=== PATIENT | female | born 1950 | race Caucasian/White ===

== ENCOUNTER 2020-02-17 10:53 | Emergency (ER) | payer MEDICARE, OTHER, SELFPAY ==
[2020-02-17 10:55] VITALS: BP 130/70; PULSE 88; RESP 16; TEMP 36.3; O2SAT 99
[2020-02-17 12:24] VITALS: BP 120/73; PULSE 82; O2SAT 98
[2020-02-17] MEDS: TRAMADOL 50 MG TABLET PO (12:25)
--- NOTE | 2020-02-17 15:39 | ED_ITS ---
HPI - Ear Problem <MARTINEZ Grace - Last Filed: 02/17/20 16:52> General Chief complaint: Ear Stated complaint: ear infection rt Time Seen by Provider: 02/17/20 11:01 Source: patient Mode of arrival: Ambulatory Limitations: no limitations History of Present Illness HPI Narrative: This is a 69-year-old female, former smoker, with history of hypertension and hypothyroidism, presents to ED with chief complain of right ear pain for last 2.5 days. Patient denies fever, chills, nausea or vomiting. Denies recent upper respiratory infection symptoms or ear drainage. She states right side hearing has decreased and behind right ear lymph node has been hurting. Patient states she was treated with amoxicillin 3 months ago with ear infection after she was evaluated in [facility]. Patient reports her pain is 5/10 and when offered Tylenol and Motrin for pain management, she says it does nothing for her and states trauma other works well pain in the past. Related Data Previous Rx's Medication Instructions Recorded amoxicillin-pot clavulanate 1 tab PO BID 7 Days #14 tab 02/17/20 [Augmentin] Review of Systems <MARTINEZ Grace - Last Filed: 02/17/20 16:52> Review of Systems Narrative: General: Denies fever, chills, fatigue, malaise, sweats. HEENT: See HPI Respiratory: Denies dyspnea, cough, wheezing, hemoptysis, sputum. Cardiovascular: Denies chest pain, palpitations, orthopnea, edema. Gastrointestinal: Denies nausea, vomiting, abdominal pain, diarrhea, constipation, melena. : Denies dysuria, frequency, incontinence, hematuria, urinary retention. Musculoskeletal: Denies weakness, joint pain or bony pain. Skin: Denies rash, skin lesions, or other. Neurologic: Denies weakness, headache, numbness, change in speech, confusion, seizures, incoordination. Psychiatric: No concerning psychosocial issues. 12-point review of systems is negative except for those stated above. Patient History <MARTINEZ Grace - Last Filed: 02/17/20 16:52> Medical History (Updated 02/17/20 @ 16:42 by MARTINEZ Grace) Hypertension (Acute) Hypothyroidism (Acute) Social History Smoking Status: Former smoker Smoking Status: Former smoker alcohol intake frequency: other Substance Use Type: does not use Exam <MARTINEZ Grace - Last Filed: 02/17/20 16:52> Narrative Exam Narrative: General appearance: well developed, well nourished, appears to be anxious. Head: normocephalic, atraumatic, no scalp lesions, non-tender. ENT: Bilateral auditory canals clear. Right tympanic membrane erythematous and cloudy in appearance with intact TM. Left TM intact with normal markings. Slightly decreased Hearing in right ear and intact in left ear. Nose without bleeding, purulent discharge, septal hematoma or deviation. Turbinate without erythema or swelling. Facial sinuses nontender to palpate. Mucous membrane moist, no mucosal lesion. Throat without erythema, tonsillar hypertrophy or exudate. Uvula in midline, airway patent. Neck/Thyroid: neck supple, full range of motion, no visible masses or meningeal signs. No JVD, non-tender without lymphadenopathy. Skin: no suspicious rashes, lesions over visible areas. Warm and dry and appropriate color for ethnicity. Heart: no clubbing, no cyanosis, no edema. S1 and S2 normal. RRR w/o murmurs, clicks, or bruits. Lungs: Breathing even and unlabored. No stridor. No accessory muscles used. Able to speak in full sentences. Chest: normal shape and expansion. Abdomen: non-obese, non-distended. Neurologic: alert and oriented. Cognitive exam, [employer] and PNS grossly intact on informal exam. Psych: good eye contact, normal affect. Initial Vital Signs Initial Vital Signs: Vital Signs Temperature 97.4 F L 02/17/20 10:55 Pulse Rate 88 02/17/20 10:55 Respiratory Rate 16 02/17/20 10:55 Blood Pressure 130/70 02/17/20 10:55 Pulse Oximetry 99 02/17/20 10:55 <Mustapha Osuna DO - Last Filed: 02/17/20 16:59> Initial Vital Signs Initial Vital Signs: Vital Signs Temperature 97.4 F L 02/17/20 10:55 Pulse Rate 88 02/17/20 10:55 Respiratory Rate 16 02/17/20 10:55 Blood Pressure 130/70 02/17/20 10:55 Pulse Oximetry 99 02/17/20 10:55 Scores <MARTINEZ Grace - Last Filed: 02/17/20 16:52> GCS [place] coma scale eye opening: Spontaneous [place] coma scale verbal response: Orientated [place] coma scale motor response: Obey commands [place] coma scale total score: 15 Course <Arias VázquezMARTINEZ Terrazas - Last Filed: 02/17/20 16:52> Orders Ordered: Discontinued Medications Tramadol HCl (Ultram) 50 mg PO NOW ONE Stop: 02/17/20 11:35 Last Admin: 02/17/20 12:26 Dose: Not Given Documented by: ANA MARIA Tramadol HCl (Ultram) 50 mg PO NOW ONE Stop: 02/17/20 12:06 Last Admin: 02/17/20 12:25 Dose: 50 mg Documented by: ANA MARIA Vital Signs Vital signs: Vital Signs - 8 hr 02/17/20 10:55 02/17/20 12:24 Temperature 97.4 F L Pulse Rate 88 82 Respiratory Rate 16 Blood Pressure 130/70 Blood Pressure [Left Arm] 120/73 Pulse Oximetry 99 98 <Mustapha Osuna DO - Last Filed: 02/17/20 16:59> Orders Ordered: Discontinued Medications Tramadol HCl (Ultram) 50 mg PO NOW ONE Stop: 02/17/20 11:35 Last Admin: 02/17/20 12:26 Dose: Not Given Documented by: ANA MARIA Tramadol HCl (Ultram) 50 mg PO NOW ONE Stop: 02/17/20 12:06 Last Admin: 02/17/20 12:25 Dose: 50 mg Documented by: ANA MARIA Vital Signs Vital signs: Vital Signs - 8 hr 02/17/20 10:55 02/17/20 12:24 Temperature 97.4 F L Pulse Rate 88 82 Respiratory Rate 16 Blood Pressure 130/70 Blood Pressure [Left Arm] 120/73 Pulse Oximetry 99 98 Medical Decision Making <Arias VázquezMARTINEZ Terrazas - Last Filed: 02/17/20 16:52> Differential Diagnosis Differential Diagnosis: Otitis media Medical Records Medical records reviewed: Yes I reviewed the patient's medical records. MDM Narrative Medical decision making narrative: This is 69 year old female who presents to ED with right ear pain. Physical exam is consistent with right otitis media. When patient offered Tylenol and or Motrin for pain, patient declines and requesting other medication since Tylenol Motrin does nothing for pain. Patient suggested tramadol since in the past it works well for pain. Informed patient that she will be treated with Augmentin for otitis media since 3 month ago her otitis media has been treated with amoxicillin. Patient again inquiring about pain management at home. AMELIA report came in and it appears to be patient had visited [facility] 5 times within 12 months. She had also prescribed total 360 tabs of tramadol, 26 tabs of [place] since December 13 through January 22 this year from 3 different prescribers. It appears to be patient receives tramadol 50 mg 180 tabs on a monthly basis from her primary care physician. Patient advised to take [id number] Tylenol and or Motrin as needed for her ear pain and to take tramadol that she has at home if there is severe ear pain. Patient was treated with 1 tab of tramadol while in ED. Return precautions were discussed with patient and advised to follow up with primary care physician for recheck in 2-3 days. Patient verbalized under standing and agreement with treatment plan. Discharge Plan Departure Patient Disposition: Home Clinical Impression: Otitis media Qualifiers: Otitis media type: unspecified Laterality: right Qualified Code(s): H66.91 - O titis media, unspecified, right ear Discharge Date/Time: 02/17/20 12:29 Instructions: DI for Middle Ear Infection-Adult Activity Restrictions/Additional Instructions: You have been diagnosed with [right middle ear infection]. What to do: *Take your medications as directed. Please take antibiotic medication twice a day for next 7 days. This medication has been transmitted to [facility] in [place]. You can take [id number] Tylenol and or Motrin as needed for discomfort. For severe pain usually take tramadol that you have been prescribed by her primary care physician. *Follow up with your primary care provider in 2-3 days, call for an appointment. Let them know you were seen in the ED and that we asked you to be seen in follow up. *Return to ED if you have any new, worsening, or concerning symptoms, such as [chest pain, breathing difficulty, unable to tolerate fluids, high fever, increasing pain, increasing difficulty hearing or any acute concerns]. Prescriptions: New amoxicillin-pot clavulanate [Augmentin] 875-125 mg tablet 1 tab PO BID 7 Days Qty: 14 RF: 0 Referrals: Isaak Vasquez DO [Primary Care Provider] - <Mustapha Osuna DO - Last Filed: 02/17/20 16:59> Cosign ED Attending Cosignature Attestation: Dr Osuna Co-Sign Statement: I was available for consultation during this patient's emergency department visit. This chart is signed by myself for administrative purposes only. I did not have direct contact with this patient during this visit. They were seen independently by the APC.
== END 2020-02-17 12:29 | disposition home or self-care (01) ==
PROVIDERS: Emergency Provider Nurse Practitioner Family; PCP Family Medicine
DX: H66.91 Otitis media, unspecified, right ear (principal)
CPT/HCPCS: 99283

== ENCOUNTER 2020-02-19 18:54 | Emergency (ER) | payer MEDICARE, OTHER, SELFPAY ==
[2020-02-19 19:00] VITALS: BP 148/110; PULSE 104; TEMP 37.1; O2SAT 98; BMI 27.2
--- NOTE | 2020-02-19 19:14 | ED_ITS ---
HPI - Ear Problem <MARTINEZ Purvis - Last Filed: 02/19/20 19:38> General Chief complaint: Ear Stated complaint: infection in right ear Time Seen by Provider: 02/19/20 18:58 Source: patient Mode of arrival: Ambulatory Limitations: no limitations History of Present Illness HPI Narrative: 69yo female, former smoker, history of hypertension, on chronic tramadol therapy, presents to the ED for continued right-sided ear pain for the past 4 day. Patient states she was seen on 02/17/2020 here in the emergency department diagnosed with otitis media, she was given Augmentin. She states she is continuing to take the Augmentin despite the fact that it gives her diarrhea. However, patient reports continued pain. Patient denies any other symptoms such as headache, vision changes, neck pain, chest pain, nausea, vomiting, diarrhea, or any other concerns. Does report a small bruise to PINNA from bumping her head on the overhead cabinet in the bathroom. Related Data Previous Rx's Medication Instructions Recorded amoxicillin-pot clavulanate 1 tab PO BID 7 Days #14 tab 02/17/20 [Augmentin] prednisone 40 mg PO DAILY 4 Days #8 tab 02/19/20 Allergies Allergy/AdvReac Type Severity Reaction Status Date / Time No Known Drug Allergies Allergy Verified 02/19/20 19:03 Review of Systems <MARTINEZ Purvis - Last Filed: 02/19/20 19:38> Review of Systems Narrative: REVIEW OF SYSTEMS: GENERAL: Denies fever or chills. HENT: Reports right ear pain, see HPI. No headaches. EYES: No vision changes. CARDIOVASCULAR: No chest pain. RESPIRATORY: No shortness of breath or cough. GASTROINTESTINAL: No nausea, vomiting, or constipation. Reports diarrhea from previous antibiotics, see HPI. MUSCULOSKELETAL: No pain, weakness, or deformities. INTEGUMENTARY: No rash, lesions, or pruritus. Patient History <MARTINEZ Purvis - Last Filed: 02/19/20 19:38> Medical History Hypertension (Acute) Hypothyroidism (Acute) Social History Smoking Status: Former smoker Smoking Status: Former smoker alcohol intake frequency: other Substance Use Type: does not use Exam <MARTINEZ Purvis - Last Filed: 02/19/20 19:38> Initial Vital Signs Initial Vital Signs: Vital Signs Temperature 98.7 F 02/19/20 19:00 Pulse Rate 104 H 02/19/20 19:00 Blood Pressure 148/110 H 02/19/20 19:00 Pulse Oximetry 98 02/19/20 19:00 PHYSICAL EXAMINATION: GENERAL: Well groomed, alert, and cooperative. Appears to be in pain. Answers questions promptly and appropriately. Vital signs noted. HENT: Normocephalic, atraumatic. Right TM intact with effusion, mainly clear fluid with a small amount of resolving purulent streaks. No significant erythema or bulge. Slight ecchymosis noted to superior pinna, no significant swelling, no cauliflower ear. Left TM intact without erythema, fluid, or bulge. No pain with mastoid palpation. Oropharynx without erythema. No rhinorrhea EYES: PERRLA, conjunctiva pink, sclera white, no periorbital swelling. CHEST: Normal to inspection and without deformities. RESPIRATORY: Normal respiratory rate, trachea midline, airway patent. No stridor, nasal flaring or accessory muscle use. . MUSCULOSKELETAL: Normal gait and coordination. Equal tone and mass bilaterally. EXTREMITIES: CMS intact. Moves all extremities. SKIN: Warm, dry, soft, appropriate color for ethnicity. No lesions, rashes, or wounds. NEURO: Alert and Oriented X 3. Good coordination. No ataxia, or sensory deficits, or cognitive issues. PSYCH: Patient has an anxious affect. <Cindi Dawson MD - Last Filed: 02/19/20 21:47> Initial Vital Signs Initial Vital Signs: Vital Signs Temperature 98.7 F 02/19/20 19:00 Pulse Rate 104 H 02/19/20 19:00 Blood Pressure 148/110 H 02/19/20 19:00 Pulse Oximetry 98 02/19/20 19:00 Course <MARTINEZ Purvis - Last Filed: 02/19/20 19:38> Course Course Narrative: Patient given Toradol in the emergency department to help with pain. I discussed with patient enter nasal versus oral steroids to help with pain of otitis effusion. Due to patient's pain, elected to have oral steroids at this time. Patient denies any diabetes. Reported she tolerated oral steroids well in the past. Orders Ordered: Discontinued Medications Ketorolac Tromethamine (Toradol) 30 mg IM NOW ONE Stop: 02/19/20 19:11 Last Admin: 02/19/20 19:22 Dose: 30 mg Documented by: ANA MARIA Prednisone (Deltasone) 40 mg PO NOW ONE Stop: 02/19/20 19:11 Last Admin: 02/19/20 19:22 Dose: 40 mg Documented by: ANA MARIA Vital Signs Vital signs: Vital Signs - 8 hr 02/19/20 19:00 02/19/20 19:25 Temperature 98.7 F Pulse Rate 104 H 100 H Blood Pressure 148/110 H Pulse Oximetry 98 <Cindi Dawson MD - Last Filed: 02/19/20 21:47> Orders Ordered: Discontinued Medications Ketorolac Tromethamine (Toradol) 30 mg IM NOW ONE Stop: 02/19/20 19:11 Last Admin: 02/19/20 19:22 Dose: 30 mg Documented by: ANA MARIA Prednisone (Deltasone) 40 mg PO NOW ONE Stop: 02/19/20 19:11 Last Admin: 02/19/20 19:22 Dose: 40 mg Documented by: ANA MARIA Vital Signs Vital signs: Vital Signs - 8 hr 02/19/20 19:00 02/19/20 19:25 Temperature 98.7 F Pulse Rate 104 H 100 H Blood Pressure 148/110 H Pulse Oximetry 98 Medical Decision Making <MARTINEZ Purvis - Last Filed: 02/19/20 19:38> Medical Records Medical records reviewed: Yes I reviewed the patient's medical records. Lab Data Lab results reviewed: Yes I reviewed the patient's lab results. MDM Narrative Medical decision making narrative: 69-year-old female presenting to the emergency department for continued right ear pain after a diagnosis of otitis media 2 days ago. Patient continues to take Augmentin. I suspect patient's pain is most likely caused by remaining otitis effusion due to examination, previous otitis media, and short duration since onset of symptoms. Patient was given oral steroid after discussion. Follow-up was encouraged due to the potential for chronic otitis effusions. There was a small amount of ecchymosis noted to patient's pinna from bumping her head on a cabinet. No concern for significant swelling or cauliflower here due to examination. Previous note on 02/17/2020 mentions patient has been prescribed a total of 360 tabs of tramadol, 26 tabs of [place], from December 13 through January 22 from multiple providers. Patient also has a AMELIA report with multiple ED encounters. No narcotics were given at this visit. Patient was initially noted to have a slightly elevated pulse, she appeared nervous on examination. This may be due to pain. Less concern for significant infection due to lack of other concerning symptoms such as fever, severe headache, sore throat, are pain on palpation of her mastoid. Additionally, patient reported improved pain with administration of Toradol. Return precautions given for new or worsening symptoms. Follow-up instructions discussed. Patient agreed to plan of care verbalized understanding. Discharge Plan Departure Patient Disposition: Home Clinical Impression: Acute otitis media with effusion Discharge Date/Time: 02/19/20 19:31 Instructions: DI for Otitis Media (Middle Ear Infection)-Child Activity Restrictions/Additional Instructions: Thank you for entrusting me with your care today. As discussed, it appears your ear infection is continuing to heal. The continued pain is due to a clear fluid that often accumulates behind your ear drum causing pressure and pain. I prescribed you a steroid medication to help with this. Please continue to take your antibiotics as directed. Your prescriptions were sent to [facility] in [place]. Follow-up with your primary care provider in 1 week for further evaluation especially if symptoms continue. Return emergency department for any new or worsening symptoms. Prescriptions: New prednisone 20 mg tablet 40 mg PO DAILY 4 Days Qty: 8 RF: 0 No Action amoxicillin-pot clavulanate [Augmentin] 875-125 mg tablet 1 tab PO BID 7 Days Qty: 14 RF: 0 Referrals: Isaak Vasquez DO [Primary Care Provider] - <Cindi Dawson MD - Last Filed: 02/19/20 21:47> [facility]ign [facility]: I was immediately available in the department for consultation throughout this patient's visit. I agree with documentation as above. Cindi Dawson MD
[2020-02-19] MEDS: KETOROLAC 60 MG/2 ML VIAL 30 MG IM (19:22)
[2020-02-19] MEDS: predniSONE 20 MG TABLET 40 MG PO (19:22)
[2020-02-19 19:25] VITALS: PULSE 100
== END 2020-02-19 19:31 | disposition home or self-care (01) ==
PROVIDERS: Emergency Provider Nurse Practitioner; PCP Family Medicine
DX: H65.191 Other acute nonsuppurative otitis media, right ear (principal); I10 Essential (primary) hypertension; E03.9 Hypothyroidism, unspecified; R19.7 Diarrhea, unspecified
CPT/HCPCS: 96372; 99283; J1885

== ENCOUNTER 2020-03-01 09:46 | Emergency (ER) | payer MEDICARE, OTHER, SELFPAY ==
[2020-03-01 09:49] VITALS: BP 125/91; PULSE 82; RESP 12; TEMP 36.7; O2SAT 99
--- NOTE | 2020-03-01 09:54 | PC.NURSE ---
pt has been seen for same problem without relief. Pt scheduled to see ENT in 5 days but the pain is too much at this time
--- NOTE | 2020-03-01 09:56 | ED.EAR ---
HPI - Ear Problem General Chief complaint: Ear Stated complaint: right ear infection Time Seen by Provider: 03/01/20 09:47 Source: patient Mode of arrival: Ambulatory Limitations: no limitations History of Present Illness HPI Narrative: 69-year-old female former smoker with chronic back pain presents for the 3rd time for evaluation of right ear pain in the past few weeks. She has ongoing right ear pain in the absence of any other fever, but does have runny nose, sneezing . She denies any injury or drainage. She denies chest pain or shortness of breath. She denies nausea, vomiting. Initially she was seen and thought to have a bacterial otitis media and was placed on antibiotics but only took a few doses as it caused a significant amount of diarrhea. She returned under similar circumstances with ongoing ear pain and her antibiotic was switched and again it caused her diarrhea at which point she stopped taking it. She returns with ongoing ear pain in the absence of fever or drainage MD Complaint: ear pain Location: right ear Duration: constant Severity: moderate Relieving factors: nothing Exacerbating factors: nothing Discharge from ear: no Treatment prior to arrival: none Related Data Previous Rx's Medication Instructions Recorded amoxicillin-pot clavulanate 1 tab PO BID 7 Days #14 tab 02/17/20 [Augmentin] prednisone 40 mg PO DAILY 4 Days #8 tab 02/19/20 Allergies Allergy/AdvReac Type Severity Reaction Status Date / Time No Known Drug Allergies Allergy Verified 02/19/20 19:03 Review of Systems Constitutional Constitutional: Denies chills, Denies fatigue, Denies fever(s), Denies frequent falls, Denies lethargy and Denies weakness Eyes Eyes: Denies change in vision, Denies eye discharge, Denies irritation and Denies loss of vision ENT Ears, Nose, Mouth, and Throat: Denies change in voice, Denies dizziness, Reports otalgia, Reports nasal congestion, Denies neck pain, Denies sore throat and Denies throat swelling Cardiovascular Cardiovascular: Denies chest pain, Denies irregular heart rhythm, Denies lightheadedness, Denies palpitations, Denies dyspnea, Denies dyspnea on exertion and Denies orthopnea Respiratory Respiratory: Denies cough, Denies dyspnea, Denies dyspnea on exertion and Denies wheezing Gastrointestinal Gastrointestinal: Denies abdominal pain, Denies change in bowel habits, Denies diarrhea, Denies nausea and Denies vomiting Genitourinary Genitourinary: Denies hematuria, Denies flank pain, Denies urinary incontinence and Denies urinary urgency Musculoskeletal Musculoskeletal: Denies back pain, Denies muscle weakness, Denies neck pain, Denies numbness and Denies tingling Integumentary/Breasts Skin/Breast: Denies pruritus, Denies erythema, Denies rash and Denies wounds Neurologic Neurologic: Denies behavioral changes, Denies confusion, Denies dizziness, Denies frequent falls, Denies loss of vision, Denies numbness, Denies tingling and Denies weakness Psychiatric Psychiatric: Denies anxiety, Denies behavioral changes, Denies confusion, Denies depression, Denies homicidal ideation and Denies suicidal ideation Endocrine Endocrine: Denies fatigue, Denies flushing and Denies palpitations Hematologic/Lymphatic Hematologic/Lymphatic: Denies easy bruising Allergic/Immunologic Allergic/Immunologic: Denies urticaria, Denies throat swelling and Denies wheezing Patient History Medical History Hypertension (Acute) Hypothyroidism (Acute) Social History Smoking Status: Former smoker Smoking Status: Former smoker alcohol intake frequency: other Substance Use Type: does not use Exam Narrative Exam Narrative: GEN: AOx3 and in mild distress EYES: Pupils are equal, round, and reactive to light and accommodation. Extraoccular muscles are intact bilaterally. There is no subconjunctival hemorrhage or exudate. ENT: Right TM clear, no bulging, minimal clear effusion. EAC clear and without swelling or drainage. No pain to palpation of mastoid. No intraoral abnormality CHEST: Lungs are clear to auscultation bilaterally and free of wheezes, rales, or rhonchi. Heart rate is regular rhythm, there are no murmurs, clicks, rubs, or gallops. There is no chest wall tenderness. ABD: Abdomen is soft and nontender. There is no guarding or rebound. Bowel sounds are normal in all 4 quadrants. There is no mass or organomegaly. EXT: Full painless ROM of all extremities with no loss of sensation or strength. SKIN: Warm, pink, and dry. No erythema or rash Initial Vital Signs Initial Vital Signs: Vital Signs Temperature 98.1 F 03/01/20 09:49 Pulse Rate 82 03/01/20 09:49 Respiratory Rate 12 03/01/20 09:49 Blood Pressure 125/91 H 03/01/20 09:49 Pulse Oximetry 99 03/01/20 09:49 Course Vital Signs Vital signs: Vital Signs - 8 hr 03/01/20 09:49 Temperature 98.1 F Pulse Rate 82 Respiratory Rate 12 Blood Pressure 125/91 H Pulse Oximetry 99 Medical Decision Making MDM Narrative Medical decision making narrative: Though patient has had multiple visits with antibiotics to treat otitis media there is no current indication that antibiotics are needed. She does have some small amount of clear effusion in her right TM, and clear post nasal drip. Return precautions given, questions answered to apparent satisfaction Discharge Plan Departure Patient Disposition: Home Clinical Impression: Otitis media Qualifiers: Otitis media type: serous Chronicity: acute Laterality: right Recurrence: recurrent Qualified Code(s): H65.04 - Acute serous otitis media, recurrent, right ear Discharge Date/Time: 03/01/20 10:37 Instructions: DI for Ear Pain-Adult Activity Restrictions/Additional Instructions: *You have been diagnosed with [right otitis media with effusion, no indication for antibiotics] *What to do: *Take medications as directed: I strongly recommend [id number]-[id number] antihistamines such as Zyrtec, Agustina or Claritin along with decongestants such as Sudafed or phenylephrine. Additionally, as prior doctors have suggested intranasal steroid such as Flonase are likely to help as well *Follow up with your primary care provider in 2-3 days, call for an appointment. Let them know you were seen in the Emergency Department and that we ask that you be seen in follow up *Return to ER if you should have any new, worsening or concerning symptoms Prescriptions: No Action amoxicillin-pot clavulanate [Augmentin] 875-125 mg tablet 1 tab PO BID 7 Days Qty: 14 RF: 0 prednisone 20 mg tablet 40 mg PO DAILY 4 Days Qty: 8 RF: 0 Referrals: Ricci Dc MD [Physician] - Isaak Vasquez DO [Primary Care Provider] -
== END 2020-03-01 10:37 | disposition home or self-care (01) ==
PROVIDERS: Emergency Provider Emergency Medicine; PCP Family Medicine
DX: H65.04 Acute serous otitis media, recurrent, right ear (principal)
CPT/HCPCS: 99281

== ENCOUNTER 2020-05-24 10:17 | Emergency (ER) | payer MEDICARE, OTHER, SELFPAY ==
[2020-05-24 10:29] VITALS: BP 134/86; PULSE 87; RESP 16; O2SAT 98; BMI 27.3
[2020-05-24 11:30] VITALS: BP 192/97; PULSE 77; RESP 17; O2SAT 100
[2020-05-24] MEDS: SODIUM CHLORIDE 0.9% 500 ML 1000 ML IV (12:09)
[2020-05-24] MEDS: KETOROLAC 60 MG/2 ML VIAL 15 MG IV (12:09)
[2020-05-24] MEDS: diphenhydrAMINE 50 MG/ML VIAL 25 MG IV (12:09)
[2020-05-24] MEDS: METOCLOPRAMIDE 10 MG/2 ML INJ IV (12:11)
--- NOTE | 2020-05-24 12:15 | ED_ITS ---
HPI - Headache <Arias Medina [facility] - Last Filed: 05/24/20 19:09> General Chief Complaint: Headache Stated Complaint: Migraine Pain Time Seen by Provider: 05/24/20 11:03 Source: patient Mode of arrival: Ambulatory Limitations: no limitations History of Present Illness HPI Narrative: This is a 69-year-old female, former smoker, who has history of migraine headache and hypertension presents to ED with chief complain of headache for last 4-5 days. Patient reports the pain feels just as her usual migraine headache. Location of headache is frontal head from right to left side. Patient reports photo sensitivity and nausea without vomiting. Patient reports she has little blurred vision in right-sided which is normal with her migraine headache. Denies speech difficulty, swallowing difficulty, facial droops or extremity weakness. She denies fever, chills, unusual rashes, or nuchal rigidity. Patient was seen by her primary care physician yesterday Dr. Becerra and received Toradol injection without improvement. Patient denies your recent URI symptoms. Reports taking Tylenol at 7:30 a.m. this morning without improvement. [facility] ED visit reports indicates she had received 15 tabs of [place] on 03/24/20 and tramadol 50 mg #150 tabs on 03/05/[address] Becerra and patient states she is not currently taking any of these medications. Related Data Home Medications Medication Instructions Recorded Confirmed chlorthalidone 25 mg PO DAILY 05/24/20 05/24/20 levothyroxine [Synthroid] 100 mcg PO DAILY 05/24/20 05/24/20 Allergies Allergy/AdvReac Type Severity Reaction Status Date / Time No Known Drug Allergies Allergy Verified 05/24/20 10:33 Review of Systems <Arias Medina [facility] - Last Filed: 05/24/20 19:09> Review of Systems Narrative: General: Denies fever, chills, fatigue, malaise, sweats. HEENT: Denies sinus pain, ear pain, sore throat, difficulty swallowing, dizziness. Respiratory: Denies dyspnea, cough, wheezing, hemoptysis, sputum. Cardiovascular: Denies chest pain, palpitations, orthopnea, edema. Gastrointestinal: See HPI : Denies dysuria, frequency, incontinence, hematuria, urinary retention. Musculoskeletal: Denies weakness, joint pain or bony pain. Skin: Denies rash, skin lesions, or other. Neurologic: Denies weakness, (+) headache, numbness, change in speech, confusion, seizures, incoordination. Psychiatric: No concerning psychosocial issues. 12-point review of systems is negative except for those stated above. Patient History <MARTINEZ Grace - Last Filed: 05/24/20 19:09> Medical History Breast cancer (Acute) Hypertension (Acute) Hypothyroidism (Acute) Migraine headache (Acute) Surgical History Hx of cholecystectomy (Acute) Social History Smoking Status: Former smoker Smoking Status: Former smoker alcohol intake frequency: a few times a week Alcohol type: wine Substance Use Type: does not use Exam <MARTINEZ Grace - Last Filed: 05/24/20 19:09> Narrative Exam Narrative: GEN: Alert, oriented x 3, well appearing and nourished, and in no acute distress. Head: Normal cephalic, atraumatic. No scalp or temporal tenderness, palpable mass or rash. EYES: Pupils are equal, round, and reactive to light and accommodation. Extraocular muscles are intact bilaterally. There is no subconjunctival hemorrhage, exudate and sclera non-icteric. ENT: Bilateral auditory canals and tympanic membranes clear. Hearing grossly intact. Nose without bleeding, purulent discharge, septal hematoma or deviation. Turbinate without erythema or swelling. Facial sinuses nontender to palpate. Mucous membrane moist, no mucosal lesion. Throat without erythema, tonsillar hypertrophy or exudate. Uvula in midline, airway patent. Neck: Trachea in midline. No JVD, non-tender without lymphadenopathy. No masses or thyroid megaly. Supple, non-tender and no meningeal signs. CARDIAC: Normal regular rate and rhythm without murmurs, gallops, or rubs. No chest wall tenderness. No peripheral edema, cyanosis or pallor. Capillary refill is less than 2 seconds. No carotid bruits. RESPIRATORY: Lungs are cleat to auscultate bilaterally. No cough, wheezes, rales, or rhonchi. No stridor, respiratory distress, increase work of breathing, or accessary muscle used. ABD: Abdomen soft, non tenderness to palpate. No guarding or rebound tenderness to palpate. Bowel sounds are normal in all 4 quadrants. There is no palpable masses or organomegaly. EXT: Full painless ROM of all extremities with no loss of sensation, strength, effusion or edema. SKIN: Warm, dry, normal color for patient. No erythema, lesions or rash. BACK: Nontender without deformity or crepitance. No flank tenderness. NEUROLOGICAL: Alert and oriented to place, time and person. No facial droops, dysphasia. CN II-XII intact. Strength and sensation symmetric and intact throughout. Cerebellar testing normal. PSYCHIATRIC: Good judgement and reason, without hallucinations, abnormal affect or abnormal behaviors during the examination. Patient is not suicidal. Initial Vital Signs Initial Vital Signs: Vital Signs Pulse Rate 87 05/24/20 10:29 Respiratory Rate 16 05/24/20 10:29 Blood Pressure 134/86 05/24/20 10:29 Pulse Oximetry 98 05/24/20 10:29 <Sandra Perales DO - Last Filed: 05/25/20 07:00> Initial Vital Signs Initial Vital Signs: Vital Signs Pulse Rate 87 05/24/20 10:29 Respiratory Rate 16 05/24/20 10:29 Blood Pressure 134/86 05/24/20 10:29 Pulse Oximetry 98 05/24/20 10:29 Scores <MARTINEZ Grace - Last Filed: 05/24/20 19:09> GCS [place] coma scale eye opening: Spontaneous [place] coma scale verbal response: Orientated [place] coma scale motor response: Obey commands [place] coma scale total score: 15 NIH Stroke Scale Level of Conciousness: Alert, keenly responsive Ask month/age: Answers both questions correctly. Open/close eyes, close hand: Performs both tasks correctly Best gaze horizontal: Normal Visual whitaker: No visual loss Facial palsy: Normal symetrical movement Left arm drift: No drift for full 10 sec Right arm drift: No drift for full 10 sec Left leg drift: No drift for full 10 sec Right leg drift: No drift for full 10 sec Limb ataxia: Absent Sensory on face/arms/legs: Normal, no sensory loss Best language: No aphasia, normal Dysarthria: Normal Extinction or inattention: No abnormality Total NIH Stroke scale score: 0 Course <MARTINEZ Grace - Last Filed: 05/24/20 19:09> Orders Ordered: Discontinued Medications Diphenhydramine HCl (Benadryl) 25 mg IV NOW ONE Stop: 05/24/20 11:21 Last Admin: 05/24/20 12:09 Dose: 25 mg Documented by: LINDA Sodium Chloride (Normal Saline 0.9%) 500 mls @ 1,000 mls/hr IV BOLUS ONE Stop: 05/24/20 11:49 Last Infusion: 05/24/20 13:44 Dose: 0 mls/hr Documented by: Admin: 05/24/20 12:09 Dose: 1,000 mls/hr Documented by: LINDA Ketorolac Tromethamine (Toradol) 15 mg IV NOW ONE Stop: 05/24/20 11:21 Last Admin: 05/24/20 12:09 Dose: 15 mg Documented by: LINDA Metoclopramide HCl (Reglan) 10 mg IV NOW ONE Stop: 05/24/20 11:21 Last Admin: 05/24/20 12:11 Dose: 10 mg Documented by: LINDA Vital Signs Vital signs: Vital Signs - 8 hr 05/24/20 11:30 05/24/20 12:30 05/24/20 13:23 Pulse Rate 77 74 85 Respiratory Rate 17 16 16 Blood Pressure 192/97 H 171/75 H 135/67 Pulse Oximetry 100 100 99 <Sandra Perales DO - Last Filed: 05/25/20 07:00> Orders Ordered: Discontinued Medications Diphenhydramine HCl (Benadryl) 25 mg IV NOW ONE Stop: 05/24/20 11:21 Last Admin: 05/24/20 12:09 Dose: 25 mg Documented by: LINDA Sodium Chloride (Normal Saline 0.9%) 500 mls @ 1,000 mls/hr IV BOLUS ONE Stop: 05/24/20 11:49 Last Infusion: 05/24/20 13:44 Dose: 0 mls/hr Documented by: Admin: 05/24/20 12:09 Dose: 1,000 mls/hr Documented by: LINDA Ketorolac Tromethamine (Toradol) 15 mg IV NOW ONE Stop: 05/24/20 11:21 Last Admin: 05/24/20 12:09 Dose: 15 mg Documented by: LINDA Metoclopramide HCl (Reglan) 10 mg IV NOW ONE Stop: 05/24/20 11:21 Last Admin: 05/24/20 12:11 Dose: 10 mg Documented by: LINDA Vital Signs Vital signs: Vital Signs - 8 hr 05/24/20 11:30 05/24/20 12:30 05/24/20 13:23 Pulse Rate 77 74 85 Respiratory Rate 17 16 16 Blood Pressure 192/97 H 171/75 H 135/67 Pulse Oximetry 100 100 99 MDM - Headache <MARTINEZ Grace - Last Filed: 05/24/20 19:09> Differential Diagnosis Differential diagnosis: Likely migraine, headache and meningitis Medical Records Attestation: I reviewed the patient's medical records. Lab Data Attestation: I reviewed the patient's lab results. Result diagrams: 05/24/20 11:53 05/24/20 11:53 Labs: Lab Results 05/24/20 05/24/20 Range/Units 11:53 11:53 WBC 9.8 (4.5-11.0) X10^3/uL RBC 5.13 (4.0-5.2) X10^6/uL Hgb 15.3 (12.0-16.0) g/dL Hct 45.3 (36-46) % MCV 88.3 (80-100) fL MCH 29.8 (26-34) PG MCHC 33.8 (30-36) % RDW 15.4 H (11.6-14.8) % Plt Count 312 (150-400) X10^3/uL Neut % (Auto) 61.4 (50-75) % Lymph % (Auto) 28.4 (25-40) % [place] % (Auto) 8.2 (3-14) % Eos % (Auto) 0.9 L (2-4) % Baso % (Auto) 1.1 (0-2) % Neut # (Auto) 6000 (9691-3191) /uL Lymph # (Auto) 2800 (5301-7306) /uL [place] # (Auto) 800 (0-900) /uL Eos # (Auto) 100 (0-450) /uL Baso # (Auto) 100 (0-100) /uL Sodium 133 L (137-145) mmol/L Potassium 3.5 (3.4-5.1) mmol/L Chloride 94 L (98-107) mmol/L Carbon Dioxide 28 (22-32) mmol/L BUN 20 H (7-17) mg/dL Creatinine 1.41 H (0.52-1.04) mg/dL Estimated GFR 36.8 L (>60) mL/min BUN/Creatinine Ratio 14.2 (6-22) Glucose 105 (80-110) mg/dL Calcium 9.4 (8.4-10.2) mg/dL MDM Narrative Medical decision making narrative: This is a 69-year-old female who has history of the typical migraine headache presents to ED with ongoing headache for last 4-5 days with nausea and photosensitivity. No focal neurological deficit and normal exam. NIHS stroke scale is 0. Head CT was deferred since patient describes as her typical migraine headache and no neurological deficit. No leukocytosis. Slightly decrease in sodium and chloride of 133 and 94. Ap pears to be patient is moderately dehydrated with the result of elevated BUN, creatinine, estimated GFR today. Patient denies having history of decreased renal function test in the past. Initially patient declined Toradol medication since it's not helping and suggested her pain will probably improve receiving IV route which she agreed to. Patient was hydrated with normal saline 500 mL and medicated with IV Benadryl, Reglan, and Toradol which improved patient's headache to 2/10. Patient advised to follow-up with primary care physician for headache and decreased renal function and return precautions were discussed with patient. Patient verbalized understanding in agreement with treatment plan. Advised to to take [id number] Tylenol and or Motrin as needed for discomfort. <Sandra Perales, DO - Last Filed: 05/25/20 07:00> Lab Data Labs: Lab Results 05/24/20 05/24/20 Range/Units 11:53 11:53 WBC 9.8 (4.5-11.0) X10^3/uL RBC 5.13 (4.0-5.2) X10^6/uL Hgb 15.3 (12.0-16.0) g/dL Hct 45.3 (36-46) % MCV 88.3 (80-100) fL MCH 29.8 (26-34) PG MCHC 33.8 (30-36) % RDW 15.4 H (11.6-14.8) % Plt Count 312 (150-400) X10^3/uL Neut % (Auto) 61.4 (50-75) % Lymph % (Auto) 28.4 (25-40) % [place] % (Auto) 8.2 (3-14) % Eos % (Auto) 0.9 L (2-4) % Baso % (Auto) 1.1 (0-2) % Neut # (Auto) 6000 (7850-6566) /uL Lymph # (Auto) 2800 (4334-1907) /uL [place] # (Auto) 800 (0-900) /uL Eos # (Auto) 100 (0-450) /uL Baso # (Auto) 100 (0-100) /uL Sodium 133 L (137-145) mmol/L Potassium 3.5 (3.4-5.1) mmol/L Chloride 94 L (98-107) mmol/L Carbon Dioxide 28 (22-32) mmol/L BUN 20 H (7-17) mg/dL Creatinine 1.41 H (0.52-1.04) mg/dL Estimated GFR 36.8 L (>60) mL/min BUN/Creatinine Ratio 14.2 (6-22) Glucose 105 (80-110) mg/dL Calcium 9.4 (8.4-10.2) mg/dL Discharge Plan Departure Patient Disposition: Home Clinical Impression: Decreased renal function Migraine Qualifiers: Migraine type: unspecified Status migrainosus presence: without status migrainosus Intractability: not intractable Qualified Code(s): G43.909 - Migraine, unspecified, not intractable, without status migrainosus Discharge Date/Time: 05/24/20 13:47 Instructions: DI for Migraine, DI for Dehydration -- Adult Activity Restrictions/Additional Instructions: You have been diagnosed with [migraine headache and decreased renal function likely from dehydration. No previous renal function test available today. Cr 1.41 and eGFR 36.8 and BUN of 20. ]. What to do: *Take your medications as directed. You were treated with IV fluid, IV toradol, reglan and benadryl which improved headache. You can continue with [id number] Tylenol and or Motrin as needed for discomfort. *Follow up with your primary care provider in 2-3 days, call for an appointment. Let them know you were seen in the ED and that we asked you to be seen in follow up. Please follow-up with renal function test. *Return to ED if you have any new, worsening, or concerning symptoms, such as [worsening pain, fever, unusual rash, stroke-like symptoms, chest pain, breathing difficulty, or any acute concerns]. Prescriptions: No Action levothyroxine [Synthroid] 100 mcg tablet 100 mcg PO DAILY RF: 0 chlorthalidone 25 mg tablet 25 mg PO DAILY RF: 0 Referrals: Isaak Vasquez DO [Primary Care Provider] - <Sandra Perales DO - Last Filed: 05/25/20 07:00> Cosign ED Attending Arlene Attestation: I was immediately available in the department for consultation. Documentation has been reviewed. I agree with assessment and plan.
[2020-05-24 12:19] LABS: Add Manual Diff / Slide Review NO; Basophils Absolute Auto 100 /uL (0-100); Basophils Percent Auto 1.1 % (0-2); Eosinophils Absolute Auto 100 /uL (0-450); Eosinophils Percent Auto 0.9 % (2-4); Hematocrit 45.3 % (36-46); Hemoglobin 15.3 g/dL (12.0-16.0); Lymphocytes Absolute Auto 2800 /uL (1100-4500); Lymphocytes Percent Auto 28.4 % (25-40); Mean Corpuscular HGB Conc 33.8 % (30-36); Mean Corpuscular Hemoglobin 29.8 PG (26-34); Mean Corpuscular Volume 88.3 fL (80-100); Monocytes Absolute Auto 800 /uL (0-900); Monocytes Percent Auto 8.2 % (3-14); Neutrophils Absolute Auto 6000 /uL (1500-7000); Neutrophils Percent Auto 61.4 % (50-75); Platelet Count 312 X10^3/uL (150-400); Red Blood Cell Count 5.13 X10^6/uL (4.0-5.2); Red Cell Distribution Width 15.4 % (11.6-14.8); White Blood Cell Count 9.8 X10^3/uL (4.5-11.0)
[2020-05-24 12:24] LABS: BUN Creatinine Ratio 14.2 (6-22); Blood Urea Nitrogen 20 mg/dL (7-17); Calcium 9.4 mg/dL (8.4-10.2); Carbon Dioxide 28 mmol/L (22-32); Chloride 94 mmol/L (98-107); Estimated Glomerular Filt Rate 36.8 mL/min (>60); Glucose 105 mg/dL (80-110); HEMOLYSIS 34 (0-50); Potassium 3.5 mmol/L (3.4-5.1); Sodium 133 mmol/L (137-145)
[2020-05-24 12:30] VITALS: BP 171/75; PULSE 74; RESP 16; O2SAT 100
[2020-05-24 13:23] VITALS: BP 135/67; PULSE 85; RESP 16; O2SAT 99
== END 2020-05-24 13:47 | disposition home or self-care (01) ==
PROVIDERS: Emergency Provider Nurse Practitioner Family; PCP Family Medicine
DX: G43.909 Migraine, unspecified, not intractable, without status migrainosus (principal); N28.9 Disorder of kidney and ureter, unspecified; I10 Essential (primary) hypertension; R79.89 Other specified abnormal findings of blood chemistry
CPT/HCPCS: 36415; 80048; 85025; 96361; 96374; 96375; 99284; J1200; J1885; J2765

== ENCOUNTER 2020-07-25 14:39 | Emergency (ER) | payer MEDICARE, OTHER, SELFPAY ==
[2020-07-25 14:53] VITALS: BP 159/100; PULSE 85; RESP 18; TEMP 36.3; O2SAT 98; BMI 29.0
--- NOTE | 2020-07-25 16:17 | ED.BACK ---
HPI - Back Pain/Injury General Chief Complaint: Back Pain/Injury Stated Complaint: pain right side upper back Time Seen by Provider: 07/25/20 16:15 Source: patient Limitations: no limitations History of Present Illness HPI Narrative: Patient is a 69-year-old female who presents with all right back and scapular pain ongoing for last 3-4 days. She actually admits that she fell about a week ago. Pain is getting worse it hurts to move her arm breathe or move. It is pinpoint reproducible. She denies any chest pain. She has a known history of atrial flutter. Patient remembers that actually she has been painting for about 10 days she is right-hand dominant. She fell while painting. And when her shoulder started hurting Complaint: back pain Onset (ago): day(s) (4) Duration: constant Location: thoracic spine Related Data Home Medications Medication Instructions Recorded Confirmed chlorthalidone 25 mg PO DAILY 05/24/20 05/24/20 levothyroxine [Synthroid] 100 mcg PO DAILY 05/24/20 05/24/20 Previous Rx's Medication Instructions Recorded cyclobenzaprine 5 mg PO TID PRN #10 tab 07/25/20 Allergies Allergy/AdvReac Type Severity Reaction Status Date / Time No Known Drug Allergies Allergy Verified 07/25/20 14:57 Review of Systems Review of Systems Narrative: GENERAL: Denies chills,fever HEENT: Denies throat pain RESPIRATORY: Denies dyspnea, cough, wheezing CARDIOVASCULAR: Denies chest pain, palpitations GASTROINTESTINAL: Denies nausea, vomiting MUSCULOSKELETAL: See HPI SKIN: No rash, no laceration, no pruritus NEUROLOGIC: Denies weakness, dizziness, headache, numbness 8 point review of systems is negative except for those stated above and HPI Patient History Medical History Breast cancer (Acute) Hypertension (Acute) Hypothyroidism (Acute) Migraine headache (Acute) Surgical History Hx of cholecystectomy (Acute) Social History Smoking Status: Former smoker Smoking Status: Former smoker alcohol intake frequency: a few times a week Alcohol type: wine Substance Use Type: does not use Exam Initial Vital Signs Initial Vital Signs: Vital Signs Temperature 97.3 F L 07/25/20 14:53 Pulse Rate 85 07/25/20 14:53 Respiratory Rate 18 07/25/20 14:53 Blood Pressure 159/100 H 07/25/20 14:53 Pulse Oximetry 98 07/25/20 14:53 GENERAL: Well-appearing, well-nourished and in no acute distress. HEENT: Head atraumatic,EOMI, pupils reactive, face symmetric, moist mucous membranes CARDIOVASCULAR: Regular rate and rhythm without murmurs, rubs or gallops. RESPIRATORY: Breath sounds equal bilaterally, no wheezes rales or rhonchi. BACK: No midline tenderness she does have pain paraspinal area thoracic T thought I have reproducible. ABDOMEN: Soft, nontender. Normoactive bowel sounds all 4 quadrants. No guarding or rebound. EXTREMITIES: Normal range of motion, no clubbing or edema. Neurovascularly intact NEUROLOGICAL: Alert and oriented x4. SKIN: Warm, dry, no laceration, no petechiae, no rashes or lesions. Course Orders Ordered: ED Orders 07/25/20 15:00 EKG-12 Lead Stat 07/25/20 16:36 XR chest 2V Stat Discontinued Medications Cyclobenzaprine HCl (Flexeril) 5 mg PO NOW ONE Stop: 07/25/20 16:24 Last Admin: 07/25/20 16:31 Dose: 5 mg Documented by: LAQUITA Ketorolac Tromethamine (Toradol) 30 mg IM NOW ONE Stop: 07/25/20 16:24 Last Admin: 07/25/20 16:31 Dose: 30 mg Documented by: LAQUITA Vital Signs Vital signs: Vital Signs - 8 hr 07/25/20 14:53 Temperature 97.3 F L Pulse Rate 85 Respiratory Rate 18 Blood Pressure 159/100 H Pulse Oximetry 98 MDM - Back Pain/Injury Imaging Data Chest x-ray: Radiologist's Impression: PROCEDURE: XR CHEST 2V INDICATIONS: right thoracic pain after fall 1 week ago TECHNIQUE: 2 views of the chest were acquired. COMPARISON: None. FINDINGS: Surgical changes and devices: Cholecystectomy clips are seen. Lungs and pleura: Lungs are clear. No pleural effusions or pneumothorax. Mediastinum: The cardiac contours are within normal limits. The aorta demonstrates calcification and tortuosity. Bones and chest wall: In this patient with this given history, scrutiny is given to rib fractures and thoracic spine fractures. To the limits of this plain film study, none can be seen. Age-appropriate bony degenerative changes are seen. Accentuated thoracic kyphosis is seen. No suspicious bony abnormalities. Soft tissues appear unremarkable. IMPRESSION: No acute fractures are seen. No pneumothorax is seen. If there is strong clinical concern for intrathoracic trauma, then please consider a dedicated chest CT with IV contrast for further evaluation. Postoperative and degenerative changes are seen. Dictated by: Justin Ivy M.D. on 07/25/2020 at 15:53 Approved by: Justin Ivy M.D. on 07/25/2020 at 15:53 ECG Data Attestation: I personally reviewed and interpreted this ECG as follows: Prior ECG tracings: not available for review Interpretation: Atrial flutter rate [address] changes no priors to compare MDM Narrative Medical decision making narrative: Patient's signs and symptoms are consistent with musculoskeletal. Pain is reproducible. At this time I recommend conservative treatment Discharge Plan Departure Patient Disposition: Home Clinical Impression: Spasm of thoracic back muscle Instructions: DI for Back Spasm Activity Restrictions/Additional Instructions: *You have been diagnosed with thoracic muscle spasm *What to do: Increase activity as tolerated, recommend heating pad massaging as tolerated *Continue to take medications as directed--> SENT TO [facility] Ibuprofen 600 mg every 6-8 hours if needed for [id number] pain Flexeril 5 mg every 8 hours if needed for muscle spasm *Follow up with your primary care provider in 2-3 days *Return to ER if you should have increased pain, shortness of breath, numbness tingling or weakness or any new, worsening or concerning symptoms Prescriptions: New cyclobenzaprine 5 mg tablet 5 mg PO TID PRN (Reason: muscle spasm) Qty: 10 RF: 0 No Action levothyroxine [Synthroid] 100 mcg tablet 100 mcg PO DAILY RF: 0 chlorthalidone 25 mg tablet 25 mg PO DAILY RF: 0 Referrals: Isaak Vasquez DO [Primary Care Provider] -
[2020-07-25] MEDS: KETOROLAC 60 MG/2 ML VIAL 30 MG IM (16:31)
[2020-07-25] MEDS: CYCLOBENZAPRINE 5 MG TABLET PO (16:31)
--- NOTE | 2020-07-25 16:36 | DI.RAD.S_ITS ---
PROCEDURE: XR CHEST 2V INDICATIONS: right thoracic pain after fall 1 week ago TECHNIQUE: 2 views of the chest were acquired. COMPARISON: None. FINDINGS: Surgical changes and devices: Cholecystectomy clips are seen. Lungs and pleura: Lungs are clear. No pleural effusions or pneumothorax. Mediastinum: The cardiac contours are within normal limits. The aorta demonstrates calcification and tortuosity. Bones and chest wall: In this patient with this given history, scrutiny is given to rib fractures and thoracic spine fractures. To the limits of this plain film study, none can be seen. Age-appropriate bony degenerative changes are seen. Accentuated thoracic kyphosis is seen. No suspicious bony abnormalities. Soft tissues appear unremarkable. IMPRESSION: No acute fractures are seen. No pneumothorax is seen. If there is strong clinical concern for intrathoracic trauma, then please consider a dedicated chest CT with IV contrast for further evaluation. Postoperative and degenerative changes are seen. Dictated by: Justin Ivy M.D. on 07/25/2020 at 15:53 Approved by: Justin Ivy M.D. on 07/25/2020 at 15:53
[2020-07-25 17:26] VITALS: BP 137/87; PULSE 73; RESP 16; O2SAT 98
== END 2020-07-25 17:26 | disposition home or self-care (01) ==
PROVIDERS: Emergency Provider Emergency Medicine; PCP Family Medicine
DX: M62.830 Muscle spasm of back (principal); R07.9 Chest pain, unspecified
CPT/HCPCS: 71046; 93005; 93010; 96372; 99284; J1885

== ENCOUNTER 2020-07-26 10:32 | Emergency (ER) | payer MEDICARE, OTHER, SELFPAY ==
[2020-07-26 10:35] VITALS: BP 125/89; PULSE 72; RESP 18; TEMP 36.7; O2SAT 99
--- NOTE | 2020-07-26 11:32 | ED.BACK ---
HPI - Back Pain/Injury <Lita Andrews, RESIDENTIAL TREATMENT SPECIALIST-BC - Last Filed: 07/26/20 15:51> General Chief Complaint: Back Pain/Injury Stated Complaint: BACK PAIN HASN'T IMPROVED SINCE 07/25 VISIT Time Seen by Provider: 07/26/20 11:09 Source: patient Mode of arrival: Ambulatory Limitations: no limitations History of Present Illness HPI Narrative: The patient is a 69-year-old female former smoker with history of atrial flutter, hypertension who presents with a chief complaint of continued pain since our emergency department yesterday. She was seen here yesterday and diagnosed with thoracic muscle spasm. She is given prescription of cyclobenzaprine. She has taken the cyclobenzaprine once at 3:00 a.m.. She also took Tylenol at 3:00 a.m. and 8:00 a.m.. She took 650 mg of Tylenol at once. She states that the pain is by her right scapula, after having spent several days painting. She does note that she fell painting at least 10 days ago. She prior to her emergency department visit was using ice. She has not put any creams lotions or pain patches on the area since. She stated she had a hard time sleeping last night with the pain. She states that when she relaxes her arm so that it is down at her side, she has no pain whatsoever. However she pain when she lifts her arm above her head. She states that her pain has not gotten worse, she is just concerned that it has stayed the same. Related Data Home Medications Medication Instructions Recorded Confirmed levothyroxine [Synthroid] 100 mcg PO DAILY 05/24/20 07/26/20 aspirin 81 mg PO QAM 07/26/20 07/26/20 hydrochlorothiazide 25 mg PO QAM 07/26/20 07/26/20 levothyroxine 100 mcg PO QAM 07/26/20 07/26/20 Previous Rx's Medication Instructions Recorded cyclobenzaprine 5 mg PO TID PRN #10 tab 07/25/20 hydrocodone-acetaminophen [[place]] 1 tab PO Q4-6H PRN #7 tab 07/26/20 lidocaine 1 patch TOP DAILY PRN #15 each 07/26/20 metoclopramide HCl [Reglan] 10 mg PO Q6H PRN #10 tab 07/30/20 ondansetron 4 mg PO TID-QID PRN #10 tab 07/30/20 Allergies Allergy/AdvReac Type Severity Reaction Status Date / Time lisinopril Allergy Severe Anaphylaxis Verified 07/26/20 10:44 Review of Systems <Lita DarlingtonPARMINDER - Last Filed: 07/26/20 15:51> Review of Systems Narrative: GENERAL: Denies chills, fatigue, malaise, fever, sweats. HEENT: Denies sinus pain, ear pain, sore throat, difficulty swallowing, dizziness. RESPIRATORY: Denies dyspnea, cough, wheezing, hemoptysis, sputum. CARDIOVASCULAR: Denies chest pain, palpitations, orthopnea, edema, GASTROINTESTINAL: Denies nausea, vomiting, abdominal pain, diarrhea, constipation, melena. : Denies dysuria, frequency, incontinence, hematuria, urinary retention. MUSCULOSKELETAL: See HPI SKIN: Denies rash, skin lesions, or other NEUROLOGIC: Denies weakness, headache, numbness, change in speech, confusion, seizures, incoordination. PSYCHIATRIC: No concerning psychosocial issues. 12 point review of systems is negative except for those stated above Patient History <JESSICA KeenTyshawn - Last Filed: 07/26/20 15:51> Medical History Breast cancer (Acute) Hypertension (Acute) Hypothyroidism (Acute) Migraine headache (Acute) Surgical History Hx of cholecystectomy (Acute) Social History Smoking Status: Former smoker Smoking Status: Former smoker alcohol intake frequency: a few times a week Alcohol type: wine Substance Use Type: does not use Exam <[facility] - Last Filed: 07/26/20 15:51> Narrative Exam Narrative: GENERAL: This is a well-nourished, well-developed patient, in mild distress. HEAD: Atraumatic. Normocephalic. No temporal or scalp tenderness. EYES: Pupils equal round and reactive. Extraocular motions intact. No scleral icterus. No injection or drainage. ENT: Nose without bleeding, purulent drainage or septal hematoma. Wearing a mask. Airway patent. NECK: Trachea midline. No JVD or lymphadenopathy. Supple, nontender, no meningeal signs. CARDIOVASCULAR: Regular rate and rhythm without murmurs, gallops, or rubs. RESPIRATORY: Clear to auscultation. Breath sounds equal bilaterally. No wheezes, rales, or rhonchi. No cough. No increased respiratory effort. No accessory muscle use. GASTROINTESTINAL: Abdomen soft, non-tender, nondistended. No hepato-splenomegaly, or palpable masses. No guarding. EXTREMITIES: Full range of motion noted right shoulder, positive right radial pulse. Pain to palpation that is pinpoint right scapula. Pain is pinpoint to palpation. BACK: midline CT and L-spine are Nontender without deformity or crepitance. No flank tenderness. NEURO: AOx3. Using all extremities. Clear speech. SKIN: No rash or erythema on visible skin. No rashes erythema ecchymosis lacerations or abrasions noted on back, around right scapula. Initial Vital Signs Initial Vital Signs: Vital Signs Temperature 98.1 F 07/26/20 10:35 Pulse Rate 72 07/26/20 10:35 Respiratory Rate 18 07/26/20 10:35 Blood Pressure 125/89 07/26/20 10:35 Pulse Oximetry 99 07/26/20 10:35 <Sandra Perales DO - Last Filed: 08/01/20 11:16> Initial Vital Signs Initial Vital Signs: Vital Signs Temperature 98.1 F 07/26/20 10:35 Pulse Rate 72 07/26/20 10:35 Respiratory Rate 18 07/26/20 10:35 Blood Pressure 125/89 07/26/20 10:35 Pulse Oximetry 99 07/26/20 10:35 Scores <KURT Keen - Last Filed: 07/26/20 15:51> GCS [place] coma scale eye opening: Spontaneous [place] coma scale verbal response: Orientated [place] coma scale motor response: Obey commands [place] coma scale total score: 15 Course <KURT Keen - Last Filed: 07/26/20 15:51> Orders Ordered: Discontinued Medications Hydrocodone Bitart/Acetaminophen ([place]burn 5/325) 1 tab PO NOW ONE Stop: 07/26/20 11:30 Last Admin: 07/26/20 11:55 Dose: 1 tab Documented by: TUYET Cyclobenzaprine HCl (Flexeril) 5 mg PO NOW ONE Stop: 07/26/20 11:30 Last Admin: 07/26/20 11:55 Dose: 5 mg Documented by: TUYET Ibuprofen (Advil) 800 mg PO NOW ONE Stop: 07/26/20 11:33 Last Admin: 07/26/20 11:55 Dose: 800 mg Documented by: TUYET Lidocaine (Lidoderm) 1 each TOP NOW ONE Stop: 07/26/20 11:30 Last Admin: 07/26/20 11:55 Dose: 1 each Documented by: TUYET Vital Signs Vital signs: Vital Signs - 8 hr 07/26/20 10:35 07/26/20 12:55 Temperature 98.1 F Pulse Rate 72 87 Respiratory Rate 18 20 Blood Pressure 125/89 154/102 H Pulse Oximetry 99 96 <Sandra Perales DO - Last Filed: 08/01/20 11:16> Orders Ordered: Discontinued Medications Hydrocodone Bitart/Acetaminophen ([place]burn 5/325) 1 tab PO NOW ONE Stop: 07/26/20 11:30 Last Admin: 07/26/20 11:55 Dose: 1 tab Documented by: TUYET Cyclobenzaprine HCl (Flexeril) 5 mg PO NOW ONE Stop: 07/26/20 11:30 Last Admin: 07/26/20 11:55 Dose: 5 mg Documented by: TUYET Ibuprofen (Advil) 800 mg PO NOW ONE Stop: 07/26/20 11:33 Last Admin: 07/26/20 11:55 Dose: 800 mg Documented by: TUYET Lidocaine (Lidoderm) 1 each TOP NOW ONE Stop: 07/26/20 11:30 Last Admin: 07/26/20 11:55 Dose: 1 each Documented by: TUYET Vital Signs Vital signs: Vital Signs - 8 hr 07/26/20 10:35 07/26/20 12:55 Temperature 98.1 F Pulse Rate 72 87 Respiratory Rate 18 20 Blood Pressure 125/89 154/102 H Pulse Oximetry 99 96 MDM - Back Pain/Injury <KURT Keen - Last Filed: 07/26/20 15:51> MDM Narrative Medical decision making narrative: The patient is a 69-year-old female who is seen and evaluated in the emergency department yesterday, who presents with lack of improvement in her pain. I did discuss at length with the patient that she likely will not feel better within a day, and to continue the methodology is encouraged yesterday, especially the wants that she has not tried yet. However she does feel much improved after the above-stated therapies and a provider with prescriptions of Washburn and lidocaine patches. I encouraged her to resume heat packs, not over the lidocaine patch, massage, try ibuprofen etcetera. Given her exam and the fact that her pain is completely were relieved when her arm is at rest, it is persistent musculoskeletal pain. Encouraged follow-up with primary care provider in the next few days as well as coming back to the ER for any acute concerns. Patient has no questions or concerns upon discharge and states understanding return precautions as well as follow-up care. She has been hemodynamically stable and neurovascularly intact as well as nontoxic and well appearing throughout her stay in the ER. Discharge Plan Departure Patient Disposition: Home Clinical Impression: Spasm of thoracic back muscle Discharge Date/Time: 07/26/20 13:10 Instructions: DI for Back Spasm, DI for Back Strain or Sprain, DI for Thoracic Back Pain Activity Restrictions/Additional Instructions: Thank trusting us with your care today. Please sure to continue the cyclobenzaprine, ibuprofen, massage that Dr. Perales recommended yesterday. I sent 2 prescriptions to [facility] which we will add to this regimen. One is a lidocaine patch in the other is hydrocodone with Tylenol. Please be sure to monitor your acetaminophen or Tylenol dosing and be sure to not go over 3 g per day. Please follow-up with primary care provider in the next few days. Please be sure to not use warm packs over the lidocaine patch. The lidocaine patch can stay on for 12 hours and then, off for 12 hours. I have given you a prescription of a narcotic for pain. Be aware that this can be constipating and sedating. I encouraged taking with a stool softener, pushing fluids and fiber. Do not take and drive, operate heavy machinery, etc. Do not combine it with any other sedating substances such as alcohol. The combination of narcotics and alcohol and/or other sedatives can be lethal. Please come back to the emergency department for any acute concerns Prescriptions: New hydrocodone-acetaminophen [[place]burn] 5-325 mg tablet 1 tab PO Q4-6H PRN (Reason: pain) Qty: 7 RF: 0 lidocaine 5 % adhesive patch,medicated 1 patch TOP DAILY PRN (Reason: pain) Qty: 15 RF: 0 No Action levothyroxine [Synthroid] 100 mcg tablet 100 mcg PO DAILY RF: 0 levothyroxine 100 mcg tablet 100 mcg PO QAM RF: 0 aspirin 81 mg Tablet,Chewable 81 mg PO QAM RF: 0 hydrochlorothiazide 25 mg tablet 25 mg PO QAM RF: 0 ondansetron 4 mg tablet,disintegrating 4 mg PO TID-QID PRN (Reason: nausea and vomiting) Qty: 10 RF: 0 metoclopramide HCl [Reglan] 10 mg tablet 10 mg PO Q6H PRN (Reason: nausea and vomiting) Qty: 10 RF: 0 cyclobenzaprine 5 mg tablet 5 mg PO TID PRN (Reason: muscle spasm) Qty: 10 RF: 0 Referrals: Isaak Vasquez DO [Primary Care Provider] - <Sandra Perales DO - Last Filed: 08/01/20 11:16> Cosign ED Attending Salinaature Attestation: I was immediately available in the department for consultation. Documentation has been reviewed. I agree with assessment and plan.
[2020-07-26] MEDS: IBUPROFEN 400 MG TABLET 800 MG PO (11:55)
[2020-07-26] MEDS: CYCLOBENZAPRINE 5 MG TABLET PO (11:55)
[2020-07-26] MEDS: LIDOCAINE PATCH 1 EACH ADH..PATCH TOP (11:55)
[2020-07-26] MEDS: HYDROCODONE/ACET 5/325 TABLET 1 TAB PO (11:55)
[2020-07-26 12:55] VITALS: BP 154/102; PULSE 87; RESP 20; O2SAT 96
== END 2020-07-26 13:10 | disposition home or self-care (01) ==
PROVIDERS: Emergency Provider Nurse Practitioner Family; PCP Family Medicine
DX: M62.830 Muscle spasm of back (principal)
CPT/HCPCS: 99283

== ENCOUNTER 2020-07-30 10:28 | Emergency (ER) | payer MEDICARE, OTHER, SELFPAY ==
--- NOTE | 2020-07-30 10:38 | ED_ITS ---
HPI - Nausea/Vomiting/Diarrhea General Chief complaint: Back Pain/Injury Stated complaint: needs anti-nausea med for her pain Time Seen by Provider: 07/30/20 10:36 Source: patient and family Mode of arrival: Ambulatory Limitations: no limitations History of Present Illness HPI Narrative: 69-year-old female former smoker with a history of hypothyroid and hypertension presents with her in the chief complaint of multiple episodes of nausea which she associates with each dose of a muscle relaxer which has been recently prescribed for her right flank pain. Not long ago she had a mechanical fall which she landed on her right posterior ribs and has had imaging to rule out fracture or other significant injury. She has been given pain medications as well as cyclobenzaprine and has continued episodes of nausea without vomiting. She states that she is here only for nausea medicine to help as the Tums she has been taking is doing little to help her MD complaint: nausea Onset (ago): day(s) Description of Diarrhea: none Relieving factors: none Exacerbating factors: medication Associated symptoms: other (right posterior/lateral rib pain) Related Data Home Medications Medication Instructions Recorded Confirmed levothyroxine [Synthroid] 100 mcg PO DAILY 05/24/20 07/26/20 aspirin 81 mg PO QAM 07/26/20 07/26/20 hydrochlorothiazide 25 mg PO QAM 07/26/20 07/26/20 levothyroxine 100 mcg PO QAM 07/26/20 07/26/20 Previous Rx's Medication Instructions Recorded cyclobenzaprine 5 mg PO TID PRN #10 tab 07/25/20 hydrocodone-acetaminophen [[place]] 1 tab PO Q4-6H PRN #7 tab 07/26/20 lidocaine 1 patch TOP DAILY PRN #15 each 07/26/20 metoclopramide HCl [Reglan] 10 mg PO Q6H PRN #10 tab 07/30/20 ondansetron 4 mg PO TID-QID PRN #10 tab 07/30/20 Allergies Allergy/AdvReac Type Severity Reaction Status Date / Time lisinopril Allergy Severe Anaphylaxis Verified 07/26/20 10:44 Review of Systems Constitutional Constitutional: Denies chills, Denies fatigue, Denies fever(s), Denies frequent falls, Denies lethargy and Denies weakness Eyes Eyes: Denies change in vision, Denies eye discharge, Denies irritation and Denies loss of vision ENT Ears, Nose, Mouth, and Throat: Denies change in voice, Denies dizziness, Denies neck pain, Denies sore throat and Denies throat swelling Cardiovascular Cardiovascular: Denies chest pain, Denies irregular heart rhythm, Denies lightheadedness, Denies palpitations, Denies dyspnea, Denies dyspnea on exertion and Denies orthopnea Respiratory Respiratory: Denies cough, Denies dyspnea, Denies dyspnea on exertion and Denies wheezing Gastrointestinal Gastrointestinal: Denies abdominal pain, Denies change in bowel habits, Denies diarrhea, Reports nausea and Denies vomiting Musculoskeletal Musculoskeletal: Denies neck pain and Denies numbness Integumentary/Breasts Skin/Breast: Denies pruritus, Denies erythema, Denies rash and Denies wounds Neurologic Neurologic: Denies behavioral changes, Denies confusion, Denies dizziness, Denies frequent falls, Denies loss of vision, Denies numbness and Denies weakness Psychiatric Psychiatric: Denies anxiety, Denies behavioral changes, Denies confusion, Denies depression, Denies homicidal ideation and Denies suicidal ideation Endocrine Endocrine: Denies fatigue, Denies flushing and Denies palpitations Hematologic/Lymphatic Hematologic/Lymphatic: Denies easy bruising Allergic/Immunologic Allergic/Immunologic: Denies urticaria, Denies throat swelling and Denies wheezing Patient History Medical History Breast cancer (Acute) Hypertension (Acute) Hypothyroidism (Acute) Migraine headache (Acute) Surgical History Hx of cholecystectomy (Acute) Social History Smoking Status: Former smoker Smoking Status: Former smoker alcohol intake frequency: a few times a week Alcohol type: wine Substance Use Type: does not use Exam Narrative Exam Narrative: GEN: AOx3 and in mild distress EYES: Pupils are equal, round, and reactive to light and accommodation. Extraoccular muscles are intact bilaterally. There is no subconjunctival hemorrhage or exudate. CHEST: Lungs are clear to auscultation bilaterally and free of wheezes, rales, or rhonchi. Heart rate is regular rhythm, there are no murmurs, clicks, rubs, or gallops. There is no chest wall tenderness. ABD: Abdomen is soft and nontender. There is no guarding or rebound. Bowel sounds are normal in all 4 quadrants. There is no mass or organomegaly. EXT: Full painless ROM of all extremities with no loss of sensation or strength. SKIN: Warm, pink, and dry. No erythema or rash BACK: automatic beam warper tender but free of any obvious external abnormalities. Patient exam notes decreased range of motion and muscle spasm, but no CVA tenderness, or vertebral point tenderness. There are no symptoms of cauda equina such as saddle anesthesia, and decreased reflexes, decreased sensation or strength. Initial Vital Signs Initial Vital Signs: Vital Signs Temperature 98.5 F 07/30/20 10:44 Pulse Rate 84 07/30/20 10:44 Respiratory Rate 18 07/30/20 10:44 Blood Pressure 144/95 H 07/30/20 10:44 Pulse Oximetry 94 07/30/20 10:44 Course Vital Signs Vital signs: Vital Signs - 8 hr 07/30/20 10:44 Temperature 98.5 F Pulse Rate 84 Respiratory Rate 18 Blood Pressure 144/95 H Pulse Oximetry 94 Discharge Plan Departure Patient Disposition: Home Clinical Impression: Nausea Discharge Date/Time: 07/30/20 11:10 Instructions: DI for Nausea -- Adult Activity Restrictions/Additional Instructions: *You have been diagnosed with [nausea likely a consequence of your therapies for your back spasm.] *What to do: *Take medications as directed: Your prescriptions [facility] request. Please also consider taking over the counter acid reducers like Pepcid or Zantac as we mentioned. Also, like we talked about the Reglan (Metoclopramide) can make some people feel a bit jittery, if this happens to you please take some benadryl as this is the treatment we would use here in the ED. *Follow up with your primary care provider in 2-3 days, call for an appointment. Let them know you were seen in the Emergency Department and that we ask that you be seen in follow up *Return to ER if you should have any new, worsening or concerning symptoms, such as [worsening pain, persistent vomiting, fever over 101 F or other bothersome symptoms] d. 1. Drink plenty of fluids with frequent small sips. 2. For the next 24 hours a clear liquid diet is advised. After that please employ a B.R.A.T. diet which would include bananas, rice, apples, toast and other mild food items Prescriptions: New ondansetron 4 mg tablet,disintegrating 4 mg PO TID-QID PRN (Reason: nausea and vomiting) Qty: 10 RF: 0 metoclopramide HCl [Reglan] 10 mg tablet 10 mg PO Q6H PRN (Reason: nausea and vomiting) Qty: 10 RF: 0 No Action levothyroxine [Synthroid] 100 mcg tablet 100 mcg PO DAILY RF: 0 levothyroxine 100 mcg tablet 100 mcg PO QAM RF: 0 aspirin 81 mg Tablet,Chewable 81 mg PO QAM RF: 0 hydrochlorothiazide 25 mg tablet 25 mg PO QAM RF: 0 hydrocodone-acetaminophen [[place]] 5-325 mg tablet 1 tab PO Q4-6H PRN (Reason: pain) Qty: 7 RF: 0 lidocaine 5 % adhesive patch,medicated 1 patch TOP DAILY PRN (Reason: pain) Qty: 15 RF: 0 cyclobenzaprine 5 mg tablet 5 mg PO TID PRN (Reason: muscle spasm) Qty: 10 RF: 0 Referrals: Isaak Vasquez DO [Primary Care Provider] -
[2020-07-30 10:44] VITALS: BP 144/95; PULSE 84; RESP 18; TEMP 36.9; O2SAT 94; BMI 29.4
== END 2020-07-30 11:10 | disposition home or self-care (01) ==
PROVIDERS: Emergency Provider Emergency Medicine; PCP Family Medicine
DX: R11.0 Nausea (principal); T48.1X5A Adverse effect of skeletal muscle relaxants [neuromuscular blocking agents], initial encounter
CPT/HCPCS: 99281

== ENCOUNTER 2020-08-20 14:41 | Emergency (ER) | payer MEDICARE, OTHER, SELFPAY ==
[2020-08-20] VITALS (7 sets, daily range): BP systolic 132–151; BP diastolic 71–84; PULSE 82–93; RESP 18; TEMP 36.7; O2SAT 98–99; BMI 28.1
[2020-08-20 15:19] LABS: COVID19 -Nasal RAPID Negative (Negative)
[2020-08-20] MEDS: METOCLOPRAMIDE 10 MG/2 ML INJ IV (15:57)
[2020-08-20] MEDS: diphenhydrAMINE 50 MG/ML VIAL 25 MG IV (15:57)
[2020-08-20] MEDS: SODIUM CHLORIDE 0.9% 1,000 ML 1000 ML IV (15:57)
[2020-08-20] MEDS: DEXAMETHASONE 10 MG/ML VIAL IV (15:57)
[2020-08-20] MEDS: KETOROLAC 60 MG/2 ML VIAL 30 MG IV (16:56)
--- NOTE | 2020-08-20 17:09 | ED.HA ---
HPI - Headache <KURT Keen - Last Filed: 08/20/20 18:15> General Chief Complaint: Headache Stated Complaint: migraine Time Seen by Provider: 08/20/20 14:49 Source: patient and family Mode of arrival: Ambulatory Limitations: no limitations History of Present Illness HPI Narrative: The patient is a 70-year-old female former smoker with history of muscle spasm who presents with a chief complaint of a migraine. She states it has been going on for the past 2 days. She states his normal migraine for her, had gradual onset. No thunderclap sensation. She denies any confusion slurred speech. She states that this is a normal migraine for her. She has used Tylenol and Motrin at home with very little relief. She took Motrin last dose at 9:30 a.m.. Acetaminophen shortly after this. She endorses nausea, no vomiting. Photophobia and phonophobia. Her states that she is acting and appears normal for her. Other than her pain. She does endorse some congestion which she attributes to allergies, but is concerned about coronavirus. Related Data Home Medications Medication Instructions Recorded Confirmed levothyroxine [Synthroid] 100 mcg PO DAILY 05/24/20 08/03/20 aspirin 81 mg PO QAM 07/26/20 08/03/20 hydrochlorothiazide 25 mg PO QAM 07/26/20 08/03/20 levothyroxine 100 mcg PO QAM 07/26/20 08/03/20 Previous Rx's Medication Instructions Recorded cyclobenzaprine 5 mg PO TID PRN #10 tab 07/25/20 hydrocodone-acetaminophen [Roundup] 1 tab PO Q4-6H PRN #7 tab 07/26/20 lidocaine 1 patch TOP DAILY PRN #15 each 07/26/20 metoclopramide HCl [Reglan] 10 mg PO Q6H PRN #10 tab 07/30/20 ondansetron 4 mg PO TID-QID PRN #10 tab 07/30/20 Allergies Allergy/AdvReac Type Severity Reaction Status Date / Time lisinopril Allergy Severe Anaphylaxis Verified 08/20/20 14:51 Review of Systems <KURT Keen - Last Filed: 08/20/20 18:15> Review of Systems Narrative: GENERAL: Denies chills, fatigue, malaise, fever, sweats. HEENT: Denies sinus pain, ear pain, sore throat, difficulty swallowing, dizziness. RESPIRATORY: Denies dyspnea, cough, wheezing, hemoptysis, sputum. CARDIOVASCULAR: Denies chest pain, palpitations, orthopnea, edema, GASTROINTESTINAL: Denies nausea, vomiting, abdominal pain, diarrhea, constipation, melena. : Denies dysuria, frequency, incontinence, hematuria, urinary retention. MUSCULOSKELETAL: denies weakness, joint pain, or bony pain SKIN: Denies rash, skin lesions, or other NEUROLOGIC: See HPI PSYCHIATRIC: No concerning psychosocial issues. 12 point review of systems is negative except for those stated above Patient History <KURT Keen - Last Filed: 08/20/20 18:15> Medical History Breast cancer Hypertension Hypothyroidism Migraine headache Surgical History Hx of cholecystectomy Social History Smoking Status: Former smoker Smoking Status: Former smoker alcohol intake frequency: a few times a week Alcohol type: wine Substance Use Type: does not use Exam <KURT Keen - Last Filed: 08/20/20 18:15> Narrative Exam Narrative: GENERAL: This is a well-nourished, well-developed patient, in no acute distress HEAD: Atraumatic. Normocephalic. No temporal or scalp tenderness. EYES: Pupils equal round and reactive. Extraocular motions intact. No scleral icterus. No injection or drainage. ENT: Nose without bleeding, purulent drainage or septal hematoma. Throat without erythema, tonsillar hypertrophy or exudate. Uvula midline. Airway patent. NECK: Trachea midline. No JVD or lymphadenopathy. Supple, nontender, no meningeal signs. CARDIOVASCULAR: Regular rate and rhythm RESPIRATORY: Clear to auscultation. Breath sounds equal bilaterally. No wheezes, rales, or rhonchi. No cough. No increased respiratory effort. No accessory muscle use. GASTROINTESTINAL: Abdomen soft, non-tender, nondistended. No hepato-splenomegaly, or palpable masses. No guarding. EXTREMITIES: No clubbing, cyanosis, or edema. No joint tenderness, effusion, or edema noted. BACK: Nontender without deformity or crepitance. No flank tenderness. NEURO: AOx3. No gross cranial nerve deficit. Using all extremities equally. Stable gait. Clear speech. SKIN: No rash or erythema on visible skin Initial Vital Signs Initial Vital Signs: Vital Signs Temperature 98.0 F 08/20/20 14:51 Pulse Rate 93 H 08/20/20 14:51 Respiratory Rate 18 08/20/20 14:51 Blood Pressure 132/84 08/20/20 14:51 Pulse Oximetry 98 08/20/20 14:51 <Sandra Perales DO - Last Filed: 08/21/20 07:38> Initial Vital Signs Initial Vital Signs: Vital Signs Temperature 98.0 F 08/20/20 14:51 Pulse Rate 93 H 08/20/20 14:51 Respiratory Rate 18 08/20/20 14:51 Blood Pressure 132/84 08/20/20 14:51 Pulse Oximetry 98 08/20/20 14:51 Scores <KURT Keen - Last Filed: 08/20/20 18:15> GCS Everett coma scale eye opening: Spontaneous [place] coma scale verbal response: Orientated [place] coma scale motor response: Obey commands Everett coma scale total score: 15 NIH Stroke Scale Level of Conciousness: Alert, keenly responsive Ask month/age: Answers both questions correctly. Open/close eyes, close hand: Performs both tasks correctly Best gaze horizontal: Normal Visual whitaker: No visual loss Facial palsy: Normal symetrical movement Left arm drift: No drift for full 10 sec Right arm drift: No drift for full 10 sec Left leg drift: No drift for full 5 sec Right leg drift: No drift for full 5 sec Limb ataxia: Absent Sensory on face/arms/legs: Normal, no sensory loss Best language: No aphasia, normal Dysarthria: Normal Extinction or inattention: No abnormality Total NIH Stroke scale score: 0 Course <KURT Keen - Last Filed: 08/20/20 18:15> Orders Ordered: Discontinued Medications Dexamethasone (Dexamethasone 10 Mg/Ml Vial) 10 mg IV NOW ONE Stop: 08/20/20 15:20 Last Admin: 08/20/20 15:57 Dose: 10 mg Documented by: ANA MARIA Diphenhydramine HCl (Diphenhydramine 50 Mg/Ml Vial) 25 mg IV NOW ONE Stop: 08/20/20 15:20 Last Admin: 08/20/20 15:57 Dose: 25 mg Documented by: ANA MARIA Sodium Chloride (Normal Saline 0.9%) 1,000 mls @ 1,000 mls/hr IV BOLUS ONE Stop: 08/20/20 16:18 Last Infusion: 08/20/20 16:57 Dose: 0 mls/hr Documented by: ANA MARIA Admin: 08/20/20 15:57 Dose: 1,000 mls/hr Documented by: ANA MARIA Ketorolac Tromethamine (Ketorolac 60 Mg/2 Ml Vial) 30 mg IV NOW ONE Stop: 08/20/20 16:45 Last Admin: 08/20/20 16:56 Dose: 30 mg Documented by: ANA MARIA Metoclopramide HCl (Metoclopramide 10 Mg/2 Ml Inj) 10 mg IV NOW ONE Stop: 08/20/20 15:20 Last Admin: 08/20/20 15:57 Dose: 10 mg Documented by: ANA MARIA Vital Signs Vital signs: Vital Signs - 8 hr 08/20/20 14:51 08/20/20 15:20 08/20/20 15:30 Temperature 98.0 F Pulse Rate 93 H 83 85 Respiratory Rate 18 Blood Pressure 132/84 Pulse Oximetry 98 99 98 08/20/20 16:00 08/20/20 16:30 08/20/20 17:00 Temperature Pulse Rate 82 84 83 Respiratory Rate Blood Pressure Pulse Oximetry 99 99 99 08/20/20 17:17 Temperature Pulse Rate 88 Respiratory Rate Blood Pressure 151/71 H Pulse Oximetry 98 <Sandra Perales, - Last Filed: 08/21/20 07:38> Orders Ordered: Discontinued Medications Dexamethasone (Dexamethasone 10 Mg/Ml Vial) 10 mg IV NOW ONE Stop: 08/20/20 15:20 Last Admin: 08/20/20 15:57 Dose: 10 mg Documented by: ANA MARIA Diphenhydramine HCl (Diphenhydramine 50 Mg/Ml Vial) 25 mg IV NOW ONE Stop: 08/20/20 15:20 Last Admin: 08/20/20 15:57 Dose: 25 mg Documented by: ANA MARIA Sodium Chloride (Normal Saline 0.9%) 1,000 mls @ 1,000 mls/hr IV BOLUS ONE Stop: 08/20/20 16:18 Last Infusion: 08/20/20 16:57 Dose: 0 mls/hr Documented by: ANA MARIA Admin: 08/20/20 15:57 Dose: 1,000 mls/hr Documented by: ANA MARIA Ketorolac Tromethamine (Ketorolac 60 Mg/2 Ml Vial) 30 mg IV NOW ONE Stop: 08/20/20 16:45 Last Admin: 08/20/20 16:56 Dose: 30 mg Documented by: ANA MARIA Metoclopramide HCl (Metoclopramide 10 Mg/2 Ml Inj) 10 mg IV NOW ONE Stop: 08/20/20 15:20 Last Admin: 08/20/20 15:57 Dose: 10 mg Documented by: ANA MARIA Vital Signs Vital signs: Vital Signs - 8 hr 08/20/20 14:51 08/20/20 15:20 08/20/20 15:30 Temperature 98.0 F Pulse Rate 93 H 83 85 Respiratory Rate 18 Blood Pressure 132/84 Pulse Oximetry 98 99 98 08/20/20 16:00 08/20/20 16:30 08/20/20 17:00 Temperature Pulse Rate 82 84 83 Respiratory Rate Blood Pressure Pulse Oximetry 99 99 99 08/20/20 17:17 Temperature Pulse Rate 88 Respiratory Rate Blood Pressure 151/71 H Pulse Oximetry 98 MDM - Headache <Lita JESSICA Andrews-BC - Last Filed: 08/20/20 18:15> Differential Diagnosis Differential diagnosis: Likely migraine, tension headache and headache Lab Data Labs: Lab Results 08/20/20 Range/Units 14:50 COVID-19 PCR Negative (Negative) MDM Narrative Medical decision making narrative: The patient is a 70-year-old female who presents with a chief complaint of a headache for 2 days. She has a history of migraines and this is considered a migraine for her, she states it is a usual migraine. Her NIH is 0, GCS 15. She is alert oriented interactive and neurologically intact, was given her history of headaches similar to this one, a head CT was deferred at this time. She feels much improved after the above-stated therapies and was requesting to go home. I discussed at length the importance of follow-up with primary care provider coming back to the ER for acute concerns such as neurological concerns. Patient and have no questions or concerns upon discharge and state understanding of return precautions as well as follow-up care. <Sandra Perales DO - Last Filed: 08/21/20 07:38> Lab Data Labs: Lab Results 08/20/20 Range/Units 14:50 COVID-19 PCR Negative (Negative) Discharge Plan Departure Patient Disposition: Home Clinical Impression: Headache Qualifiers: Headache type: unspecified Headache chronicity pattern: acute headache Intractability: not intractable Qualified Code(s): R51.9 - Headache, unspecified Instructions: DI for Migraine, DI for Headache Activity Restrictions/Additional Instructions: Thank you for trusting us with your care today. As discussed, please follow-up with primary care provider in the next few days. Please rest and push fluids over the next few days. Please come back to the emergency department for any acute concerns. Prescriptions: No Action levothyroxine [Synthroid] 100 mcg tablet 100 mcg PO DAILY RF: 0 levothyroxine 100 mcg tablet 100 mcg PO QAM RF: 0 aspirin 81 mg Tablet,Chewable 81 mg PO QAM RF: 0 hydrochlorothiazide 25 mg tablet 25 mg PO QAM RF: 0 hydrocodone-acetaminophen [Roundup] 5-325 mg tablet 1 tab PO Q4-6H PRN (Reason: pain) Qty: 7 RF: 0 lidocaine 5 % adhesive patch,medicated 1 patch TOP DAILY PRN (Reason: pain) Qty: 15 RF: 0 ondansetron 4 mg tablet,disintegrating 4 mg PO TID-QID PRN (Reason: nausea and vomiting) Qty: 10 RF: 0 metoclopramide HCl [Reglan] 10 mg tablet 10 mg PO Q6H PRN (Reason: nausea and vomiting) Qty: 10 RF: 0 cyclobenzaprine 5 mg tablet 5 mg PO TID PRN (Reason: muscle spasm) Qty: 10 RF: 0 Referrals: Isaak Vasquez DO [Primary Care Provider] - <Sandra Perales DO - Last Filed: 08/21/20 07:38> Cosign ED Attending [place] Attestation: I was immediately available in the department for consultation. Documentation has been reviewed. I agree with assessment and plan.
== END 2020-08-20 17:55 | disposition home or self-care (01) ==
PROVIDERS: Emergency Provider Nurse Practitioner Family; PCP Family Medicine
DX: R51.9 Headache, unspecified (principal); R11.0 Nausea
CPT/HCPCS: 36415; 87635; 96361; 96374; 96375; 99281; 99284; J1100; J1200; J1885; J2765

== ENCOUNTER 2020-08-21 13:28 | Emergency (ER) | payer MEDICARE, OTHER, SELFPAY ==
[2020-08-21 13:34] VITALS: BP 133/64; PULSE 101; RESP 17; TEMP 36.8; O2SAT 100; BMI 28.1
--- NOTE | 2020-08-21 19:21 | PC.NURSE ---
Reports here in ED for that same issue yesterday. Awoke at 0300 with headache pain again on the right, points to forehead/adventist area.
--- NOTE | 2020-08-21 20:13 | ED.HA ---
HPI - Headache <Lita Andrews, GAS ATTENDANT-BC - Last Filed: 08/21/20 20:58> General Chief Complaint: Headache Stated Complaint: MIGRAINE X4 DAYS Time Seen by Provider: 08/21/20 20:07 Source: patient and family Mode of arrival: Ambulatory Limitations: no limitations History of Present Illness HPI Narrative: The patient is a 70-year-old female former smoker with history of migraines who presents for chief complaint of a continued headache. She was seen and evaluated yesterday at this facility by myself, treated with migraine cocktail given fluids. She had a negative COVID at that time. She states she felt much improved after her emergency department stay, but woke up with recurrent migraine. She states that her pain got down to a 2 to 3/10, but then she woke up with pain worse at approximately 3:00 a.m. in the morning. She has taken a single dose of acetaminophen and ibuprofen today. She complains of persistent photophobia, phonophobia and nausea with no vomiting. She denies any neck pain. Yesterday she complained of congestion, but states that is better today. She denies any thunderclap sensation, complains of a typical migraine, had her typical aura of flashing lights. She denies any slurred speech, denies any visual deficit or neurological changes. Related Data Home Medications Medication Instructions Recorded Confirmed levothyroxine [Synthroid] 100 mcg PO DAILY 05/24/20 08/03/20 aspirin 81 mg PO QAM 07/26/20 08/03/20 hydrochlorothiazide 25 mg PO QAM 07/26/20 08/03/20 levothyroxine 100 mcg PO QAM 07/26/20 08/03/20 Previous Rx's Medication Instructions Recorded cyclobenzaprine 5 mg PO TID PRN #10 tab 07/25/20 hydrocodone-acetaminophen [[place]] 1 tab PO Q4-6H PRN #7 tab 07/26/20 lidocaine 1 patch TOP DAILY PRN #15 each 07/26/20 metoclopramide HCl [Reglan] 10 mg PO Q6H PRN #10 tab 07/30/20 ondansetron 4 mg PO TID-QID PRN #10 tab 07/30/20 Allergies Allergy/AdvReac Type Severity Reaction Status Date / Time lisinopril Allergy Severe Anaphylaxis Verified 08/21/20 13:35 Review of Systems <KURT Keen - Last Filed: 08/21/20 20:58> Review of Systems Narrative: GENERAL: Denies chills, fatigue, malaise, fever, sweats. HEENT: Denies sinus pain, ear pain, sore throat, difficulty swallowing, dizziness. RESPIRATORY: Denies dyspnea, cough, wheezing, hemoptysis, sputum. CARDIOVASCULAR: Denies chest pain, palpitations, orthopnea, edema, GASTROINTESTINAL: Denies nausea, vomiting, abdominal pain, diarrhea, constipation, melena. : Denies dysuria, frequency, incontinence, hematuria, urinary retention. MUSCULOSKELETAL: denies weakness, joint pain, or bony pain SKIN: Denies rash, skin lesions, or other NEUROLOGIC: See HPI PSYCHIATRIC: No concerning psychosocial issues. 12 point review of systems is negative except for those stated above Patient History <KURT Keen - Last Filed: 08/21/20 20:58> Medical History (Updated 08/21/20 @ 20:58 by KURT Keen) Breast cancer Hypertension Hypothyroidism Migraine headache Surgical History Hx of cholecystectomy Social History Smoking Status: Former smoker Smoking Status: Former smoker alcohol intake frequency: a few times a week Alcohol type: wine Substance Use Type: does not use Exam <KURT Keen - Last Filed: 08/21/20 20:58> Narrative Exam Narrative: GENERAL: This is a well-nourished, well-developed patient, in appears slightly anxious HEAD: Atraumatic. Normocephalic. No temporal or scalp tenderness. EYES: Pupils equal round and reactive. Extraocular motions intact. No scleral icterus. No injection or drainage. ENT: Nose without bleeding, purulent drainage or septal hematoma. Throat without erythema, tonsillar hypertrophy or exudate. Uvula midline. Airway patent. NECK: Trachea midline. No JVD or lymphadenopathy. Supple, nontender, no meningeal signs. Able to look at the ceiling, chin to chest, she has had no CARDIOVASCULAR: Regular rate and rhythm RESPIRATORY: Clear to auscultation. Breath sounds equal bilaterally. No wheezes, rales, or rhonchi. GASTROINTESTINAL: Abdomen soft, non-tender, nondistended. No hepato-splenomegaly, or palpable masses. No guarding. EXTREMITIES: No clubbing, cyanosis, or edema. No joint tenderness, effusion, or edema noted. BACK: Nontender without deformity or crepitance. No flank tenderness. NEURO: AOx3. Clear speech. Stable gait. SKIN: No rash or erythema on visible skin Initial Vital Signs Initial Vital Signs: Vital Signs Temperature 98.2 F 08/21/20 13:34 Pulse Rate 101 H 08/21/20 13:34 Respiratory Rate 17 08/21/20 13:34 Blood Pressure 133/64 08/21/20 13:34 Pulse Oximetry 100 08/21/20 13:34 <Raghav Griffin DO - Last Filed: 08/22/20 07:28> Initial Vital Signs Initial Vital Signs: Vital Signs Temperature 98.2 F 08/21/20 13:34 Pulse Rate 101 H 08/21/20 13:34 Respiratory Rate 17 08/21/20 13:34 Blood Pressure 133/64 08/21/20 13:34 Pulse Oximetry 100 08/21/20 13:34 Scores <KURT Keen - Last Filed: 08/21/20 20:58> GCS [place] coma scale eye opening: Spontaneous [place] coma scale verbal response: Orientated [place] coma scale motor response: Obey commands [place] coma scale total score: 15 Course <KURT Keen - Last Filed: 08/21/20 20:58> Course Course Narrative: The patient is a 70-year-old female who presents with a chief complaint of continued headache. She was given a migraine cocktail yesterday, still states that she feels as though she has a typical migraine with an aura for her. No thunderclap sensation. No neurological changes. However given that she is back to the emergency department continued symptoms, CBC, CMP were drawn. Head CT was ordered. Orders Ordered: Discontinued Medications Diphenhydramine HCl (Diphenhydramine 50 Mg/Ml Vial) 25 mg IV NOW ONE Stop: 08/21/20 20:19 Last Admin: 08/21/20 20:24 Dose: 25 mg Documented by: MORENO Sodium Chloride (Normal Saline 0.9%) 1,000 mls @ 1,000 mls/hr IV BOLUS ONE Stop: 08/21/20 21:17 Last Infusion: 08/21/20 21:01 Dose: 0 mls/hr Documented by: Admin: 08/21/20 20:23 Dose: 1,000 mls/hr Documented by: MORENO Sodium Chloride (Normal Saline 0.9%) 1,000 mls @ 1,000 mls/hr IV BOLUS ONE Stop: 08/21/20 21:45 Last Admin: 08/21/20 21:01 Dose: Not Given Documented by: MORENO Ketorolac Tromethamine (Ketorolac 60 Mg/2 Ml Vial) 15 mg IV NOW ONE Stop: 08/21/20 20:47 Last Admin: 08/21/20 21:01 Dose: 15 mg Documented by: MORENO Metoclopramide HCl (Metoclopramide 10 Mg/2 Ml Inj) 10 mg IV NOW ONE Stop: 08/21/20 20:19 Last Admin: 08/21/20 20:23 Dose: 10 mg Documented by: MORENO Vital Signs Vital signs: Vital Signs - 8 hr 08/21/20 13:34 Temperature 98.2 F Pulse Rate 101 H Respiratory Rate 17 Blood Pressure 133/64 Pulse Oximetry 100 <Raghav Griffin DO - Last Filed: 08/22/20 07:28> Orders Ordered: Discontinued Medications Diphenhydramine HCl (Diphenhydramine 50 Mg/Ml Vial) 25 mg IV NOW ONE Stop: 08/21/20 20:19 Last Admin: 08/21/20 20:24 Dose: 25 mg Documented by: MORENO Sodium Chloride (Normal Saline 0.9%) 1,000 mls @ 1,000 mls/hr IV BOLUS ONE Stop: 08/21/20 21:17 Last Infusion: 08/21/20 21:01 Dose: 0 mls/hr Documented by: Admin: 08/21/20 20:23 Dose: 1,000 mls/hr Documented by: MORENO Sodium Chloride (Normal Saline 0.9%) 1,000 mls @ 1,000 mls/hr IV BOLUS ONE Stop: 08/21/20 21:45 Last Admin: 08/21/20 21:01 Dose: Not Given Documented by: MORENO Ketorolac Tromethamine (Ketorolac 60 Mg/2 Ml Vial) 15 mg IV NOW ONE Stop: 08/21/20 20:47 Last Admin: 08/21/20 21:01 Dose: 15 mg Documented by: MORENO Metoclopramide HCl (Metoclopramide 10 Mg/2 Ml Inj) 10 mg IV NOW ONE Stop: 08/21/20 20:19 Last Admin: 08/21/20 20:23 Dose: 10 mg Documented by: MORENO Vital Signs Vital signs: Vital Signs - 8 hr 08/21/20 13:34 Temperature 98.2 F Pulse Rate 101 H Respiratory Rate 17 Blood Pressure 133/64 Pulse Oximetry 100 MDM - Headache <JESSICA Keen-BC - Last Filed: 08/21/20 20:58> Lab Data Attestation: I reviewed the patient's lab results. Result diagrams: 08/21/20 20:02 08/21/20 20:02 Labs: Lab Results 08/21/20 08/21/20 Range/Units 20:02 20:02 WBC 15.7 H (4.5-11.0) X10^3/uL RBC 5.43 H (4.0-5.2) X10^6/uL Hgb 16.0 (12.0-16.0) g/dL Hct 49.0 H (36-46) % MCV 90.3 (80-100) fL MCH 29.5 (26-34) PG MCHC 32.7 (30-36) % RDW 17.2 H (11.6-14.8) % Plt Count 309 (150-400) X10^3/uL Neut % (Auto) 66.0 (50-75) % Lymph % (Auto) 24.0 L (25-40) % [place] % (Auto) 8.5 (3-14) % Eos % (Auto) 0.4 L (2-4) % Baso % (Auto) 1.1 (0-2) % Neut # (Auto) 28569 H (8230-3886) /uL Lymph # (Auto) 3800 (4201-2058) /uL [place] # (Auto) 1300 H (0-900) /uL Eos # (Auto) 100 (0-450) /uL Baso # (Auto) 200 H (0-100) /uL Sodium 133 L (137-145) mmol/L Potassium 4.6 (3.4-5.1) mmol/L Chloride 97 L (98-107) mmol/L Carbon Dioxide 25 (22-32) mmol/L BUN 30 H (7-17) mg/dL Creatinine 1.17 H (0.52-1.04) mg/dL Estimated GFR 45.5 L (>60) mL/min BUN/Creatinine Ratio 25.6 H (6-22) Glucose 136 H (80-110) mg/dL Calcium 9.5 (8.4-10.2) mg/dL Total Bilirubin 1.2 (0.2-1.3) mg/dL AST 98 H (14-36) IU/L ALT 49 H (<35) IU/L Alkaline Phosphatase 96 (38-126) U/L Total Protein 7.5 (6.3-8.2) g/dL Albumin 4.4 (3.5-5.0) g/dL Globulin 3.1 (1.7-4.1) g/dL Albumin/Globulin Ratio 1.4 (1.0-2.8) Urine Dip Bedside Urine Glucose Negative Bedside Urine Bilirubin - Negative Bedside Urine Ketone - Negative Urine Specific Dendron 1.020 Bedside Urine Occult Blood - Negative Bedside Urine pH 6.0 Bedside Urine Protein - Negative Bedside Urine Urobilinogen - Negative Bedside Urine Nitrite - Negative Bedside Urine Leukocytes - Negative Esterase Imaging Data CT scan - head: Radiologist's Impression: [address] [place] [id number] Scan ReportSigned Patient: Jackie Javed#: [id number]: 8Acct:[id number]/Sex: 70 / FDate of Service: 08/21/20Loc: EDAccession Number: [id number] Procedure: CT head/brain wo con [facility] CT HEAD/BRAIN WO CON INDICATIONS: Headache TECHNIQUE: Noncontrast 4.5 mm thick angled axial sections acquired from the foramen magnum to the vertex, with coronal and sagittal reformats. For radiation dose reduction, the following was used: automated exposure control, adjustment of mA and/or kV according to patient size. COMPARISON: None. FINDINGS: Image quality: Excellent. CSF spaces: Basal cisterns are patent. No extra-axial fluid collections. Ventricles are normal in size and shape. Brain: No midline shift. No intracranial masses or hemorrhage. Moy-white matter interface is normal. Skull and face: Calvarium and visualized facial bones are intact, without suspicious lesions. Sinuses: Visualized sinuses and mastoids are clear. IMPRESSION: No acute intracranial finding.. Dictated by: Papi Terrazas M.D. on 08/21/2020 at 20:39 Approved by: Papi Terrazas M.D. on 08/21/2020 at 20:40 [facility] Narrative Medical decision making narrative: The patient is a 70-year-old female presents with a chief complaint of her current headache. Given that she was at this facility yesterday and evaluated at that point, further investigation was done. Head CT results negative. CBC CMP within normal limits for patient, though she is noted to have slight leukocytosis to 15. However this could be due to steroids that she received yesterday. She has no meningeal signs, is able to shake her head with no increase in pain, put chin to chest no increase in pain to get the ceiling with no increase in pain. Discussed with patient that workup for meningitis includes a lumbar puncture, which the patient adamantly declines. However she also has no meningeal signs at this point time, so very low suspicion.The patient is afebrile no signs of systemic illness. She is given IV fluids, Reglan, Benadryl and ketorolac. After this she is requesting to go home. I discussed at length importance of following up with primary care provider in the next few days, pushing fluids Tylenol and Motrin. Discussed coming back to the ER for acute concerns such as neurological changes etcetera. Patient has been of no questions or concerns upon discharge and state understanding of return precautions as well as follow-up care. <Raghav Griffin, DO - Last Filed: 08/22/20 07:28> Lab Data Labs: Lab Results 08/21/20 08/21/20 Range/Units 20:02 20:02 WBC 15.7 H (4.5-11.0) X10^3/uL RBC 5.43 H (4.0-5.2) X10^6/uL Hgb 16.0 (12.0-16.0) g/dL Hct 49.0 H (36-46) % MCV 90.3 (80-100) fL MCH 29.5 (26-34) PG MCHC 32.7 (30-36) % RDW 17.2 H (11.6-14.8) % Plt Count 309 (150-400) X10^3/uL Neut % (Auto) 66.0 (50-75) % Lymph % (Auto) 24.0 L (25-40) % [place] % (Auto) 8.5 (3-14) % Eos % (Auto) 0.4 L (2-4) % Baso % (Auto) 1.1 (0-2) % Neut # (Auto) 64758 H (2301-6544) /uL Lymph # (Auto) 3800 (3203-1844) /uL [place] # (Auto) 1300 H (0-900) /uL Eos # (Auto) 100 (0-450) /uL Baso # (Auto) 200 H (0-100) /uL Sodium 133 L (137-145) mmol/L Potassium 4.6 (3.4-5.1) mmol/L Chloride 97 L (98-107) mmol/L Carbon Dioxide 25 (22-32) mmol/L BUN 30 H (7-17) mg/dL Creatinine 1.17 H (0.52-1.04) mg/dL Estimated GFR 45.5 L (>60) mL/min BUN/Creatinine Ratio 25.6 H (6-22) Glucose 136 H (80-110) mg/dL Calcium 9.5 (8.4-10.2) mg/dL Total Bilirubin 1.2 (0.2-1.3) mg/dL AST 98 H (14-36) IU/L ALT 49 H (<35) IU/L Alkaline Phosphatase 96 (38-126) U/L Total Protein 7.5 (6.3-8.2) g/dL Albumin 4.4 (3.5-5.0) g/dL Globulin 3.1 (1.7-4.1) g/dL Albumin/Globulin Ratio 1.4 (1.0-2.8) Urine Dip Bedside Urine Glucose Negative Bedside Urine Bilirubin - Negative Bedside Urine Ketone - Negative Urine Specific [place]end[place] 1.020 Bedside Urine Occult Blood - Negative Bedside Urine pH 6.0 Bedside Urine Protein - Negative Bedside Urine Urobilinogen - Negative Bedside Urine Nitrite - Negative Bedside Urine Leukocytes - Negative Esterase Discharge Plan Departure Patient Disposition: Home Clinical Impression: Headache Qualifiers: Headache type: unspecified Headache chronicity pattern: acute headache Intractability: not intractable Qualified Code(s): R51.9 - Headache, unspecified Instructions: DI for Migraine, DI for Headache Activity Restrictions/Additional Instructions: Thank you for trusting us with your care today. As discussed, your head CT came back with no acute findings. Please follow-up with primary care provider in the next few days. Please push fluids, rest acetaminophen and Motrin. Please come back to the ER for any acute concerns Prescriptions: No Action levothyroxine [Synthroid] 100 mcg tablet 100 mcg PO DAILY RF: 0 levothyroxine 100 mcg tablet 100 mcg PO QAM RF: 0 aspirin 81 mg Tablet,Chewable 81 mg PO QAM RF: 0 hydrochlorothiazide 25 mg tablet 25 mg PO QAM RF: 0 hydrocodone-acetaminophen [[place]] 5-325 mg tablet 1 tab PO Q4-6H PRN (Reason: pain) Qty: 7 RF: 0 lidocaine 5 % adhesive patch,medicated 1 patch TOP DAILY PRN (Reason: pain) Qty: 15 RF: 0 ondansetron 4 mg tablet,disintegrating 4 mg PO TID-QID PRN (Reason: nausea and vomiting) Qty: 10 RF: 0 metoclopramide HCl [Reglan] 10 mg tablet 10 mg PO Q6H PRN (Reason: nausea and vomiting) Qty: 10 RF: 0 cyclobenzaprine 5 mg tablet 5 mg PO TID PRN (Reason: muscle spasm) Qty: 10 RF: 0 Referrals: Isaak Vasquez DO [Primary Care Provider] - <Raghav Griffin DO - Last Filed: 08/22/20 07:28> Cosign ED Attending Arlene Attestation: I was immediately available in the department for consultation. This documentation has been reviewed and I agree with assessment and plan. Supervised by Raghav Griffin DO
[2020-08-21 20:15] LABS: Add Manual Diff / Slide Review NO; Basophils Absolute Auto 200 /uL (0-100); Basophils Percent Auto 1.1 % (0-2); Eosinophils Absolute Auto 100 /uL (0-450); Eosinophils Percent Auto 0.4 % (2-4); Lymphocytes Absolute Auto 3800 /uL (1100-4500); Mean Corpuscular HGB Conc 32.7 % (30-36); Mean Corpuscular Hemoglobin 29.5 PG (26-34); Mean Corpuscular Volume 90.3 fL (80-100); Monocytes Absolute Auto 1300 /uL (0-900); Monocytes Percent Auto 8.5 % (3-14); Neutrophils Absolute Auto 10400 /uL (1500-7000); Platelet Count 309 X10^3/uL (150-400); Red Blood Cell Count 5.43 X10^6/uL (4.0-5.2); Red Cell Distribution Width 17.2 % (11.6-14.8); White Blood Cell Count 15.7 X10^3/uL (4.5-11.0)
[2020-08-21] MEDS: METOCLOPRAMIDE 10 MG/2 ML INJ IV (20:23)
[2020-08-21] MEDS: SODIUM CHLORIDE 0.9% 1,000 ML 1000 ML IV (20:23)
[2020-08-21] MEDS: diphenhydrAMINE 50 MG/ML VIAL 25 MG IV (20:24)
[2020-08-21 20:30] LABS: Alanine Aminotransferase 49 IU/L (<35); Albumin 4.4 g/dL (3.5-5.0); Albumin Globulin Ratio 1.4 (1.0-2.8); Alkaline Phosphatase 96 U/L (38-126); Aspartate Aminotransferase 98 IU/L (14-36); BUN Creatinine Ratio 25.6 (6-22); Bilirubin Total 1.2 mg/dL (0.2-1.3); Blood Urea Nitrogen 30 mg/dL (7-17); Calcium 9.5 mg/dL (8.4-10.2); Carbon Dioxide 25 mmol/L (22-32); Chloride 97 mmol/L (98-107); Estimated Glomerular Filt Rate 45.5 mL/min (>60); Globulin 3.1 g/dL (1.7-4.1); Glucose 136 mg/dL (80-110); Potassium 4.6 mmol/L (3.4-5.1); Sodium 133 mmol/L (137-145); Total Protein 7.5 g/dL (6.3-8.2)
[2020-08-21 20:31] LABS: HEMOLYSIS 75 (0-50)
[2020-08-21] MEDS: KETOROLAC 60 MG/2 ML VIAL 15 MG IV (21:01)
[2020-08-21 21:11] VITALS: BP 115/68; PULSE 92; RESP 22; TEMP 36.8; O2SAT 97
== END 2020-08-21 21:12 | disposition home or self-care (01) ==
PROVIDERS: Emergency Provider Nurse Practitioner Family; PCP Family Medicine
DX: R51.9 Headache, unspecified (principal)
CPT/HCPCS: 36415; 70450; 80053; 81003; 85025; 96361; 96374; 96375; 99281; 99284; J1200; J1885; J2765

== ENCOUNTER 2021-06-24 17:11 | Emergency (ER) | payer MEDICARE, OTHER, SELFPAY ==
[2021-06-24] VITALS (10 sets, daily range): BP systolic 122–146; BP diastolic 68–90; PULSE 95–113; RESP 18–20; TEMP 37.1; O2SAT 93–97; BMI 28.1
[2021-06-24] MEDS: SODIUM CHLORIDE 0.9% 1,000 ML 1000 ML IV (17:48)
[2021-06-24] MEDS: ONDANSETRON 4 MG/2 ML INJ IV ×2 (17:48→20:42)
[2021-06-24 17:50] LABS: Add Manual Diff / Slide Review NO; Basophils Absolute Auto 100 /uL (0-100); Basophils Percent Auto 1.1 % (0-2); Eosinophils Absolute Auto 0 /uL (0-450); Eosinophils Percent Auto 0.3 % (2-4); Hematocrit 52.9 % (36-46); Hemoglobin 18.3 g/dL (12.0-16.0); Lymphocytes Absolute Auto 2600 /uL (1100-4500); Lymphocytes Percent Auto 21.5 % (25-40); Mean Corpuscular HGB Conc 34.7 % (30-36); Mean Corpuscular Hemoglobin 31.2 PG (26-34); Mean Corpuscular Volume 89.9 fL (80-100); Monocytes Absolute Auto 800 /uL (0-900); Monocytes Percent Auto 6.3 % (3-14); Neutrophils Absolute Auto 8500 /uL (1500-7000); Neutrophils Percent Auto 70.8 % (50-75); Platelet Count 329 X10^3/uL (150-400); Red Blood Cell Count 5.88 X10^6/uL (4.0-5.2); Red Cell Distribution Width 14.5 % (11.6-14.8)
[2021-06-24 18:06] LABS: Alanine Aminotransferase 64 IU/L (<35); Albumin 4.6 g/dL (3.5-5.0); Albumin Globulin Ratio 1.7 (1.0-2.8); Alkaline Phosphatase 116 U/L (38-126); Aspartate Aminotransferase 86 IU/L (14-36); BUN Creatinine Ratio 18.8 (6-22); Bilirubin Total 0.6 mg/dL (0.2-1.3); Blood Urea Nitrogen 24 mg/dL (7-17); Calcium 8.9 mg/dL (8.4-10.2); Carbon Dioxide 22 mmol/L (22-32); Chloride 86 mmol/L (98-107); Globulin 2.7 g/dL (1.7-4.1); Glucose 155 mg/dL (80-110); HEMOLYSIS 15 (0-50); Lipase 188 U/L (23-300); Sodium 128 mmol/L (137-145); Total Protein 7.3 g/dL (6.3-8.2)
--- NOTE | 2021-06-24 20:21 | ED_ITS ---
HPI - Nausea/Vomiting/Diarrhea General Chief complaint: Nausea/Vomiting/Diarrhea Stated complaint: nausea, vomiting Time Seen by Provider: 06/24/21 20:21 Source: patient Mode of arrival: Ambulatory Limitations: no limitations History of Present Illness HPI Narrative: Patient is a 70-year-old female history of hypertension presenting with 3 days of nausea. She has not had any vomiting but has not had much to eat or drink. He he has not had any diarrhea. She really does not have any abdominal pain chest pain palpitations dizziness or lightheadedness. No fever or chills. She overall does not feel good. Related Data Home Medications Medication Instructions Recorded Confirmed levothyroxine 100 mcg tablet 100 mcg PO DAILY 05/24/20 08/03/20 (Synthroid) aspirin 81 mg chewable tablet 81 mg PO QAM 07/26/20 08/03/20 hydrochlorothiazide 25 mg tablet 25 mg PO QAM 07/26/20 08/03/20 levothyroxine 100 mcg tablet 100 mcg PO QAM 07/26/20 08/03/20 Previous Rx's Medication Instructions Recorded cyclobenzaprine 5 mg tablet 5 mg PO TID PRN #10 tab 07/25/20 hydrocodone 5 mg-acetaminophen 325 1 tab PO Q4-6H PRN #7 tab 07/26/20 mg tablet ([place]) lidocaine 5 % topical patch 1 patch TOP DAILY PRN #15 each 07/26/20 metoclopramide HCl 10 mg tablet 10 mg PO Q6H PRN #10 tab 07/30/20 (Reglan) ondansetron 4 mg disintegrating 4 mg PO TID-QID PRN #10 tab 07/30/20 tablet ondansetron 4 mg disintegrating 4 mg PO Q8H PRN #10 tab 06/24/21 tablet Allergies Allergy/AdvReac Type Severity Reaction Status Date / Time lisinopril Allergy Severe Anaphylaxis Verified 08/21/20 13:35 Review of Systems Review of Systems Narrative: GENERAL: Denies chills, fatigue, malaise, fever, sweats, travel HEENT: Denies sinus pain, ear pain, sore throat, difficulty swallowing, neck pain RESPIRATORY: Denies dyspnea, cough, wheezing, hemoptysis, sputum. CARDIOVASCULAR: Denies chest pain, palpitations, orthopnea, edema GASTROINTESTINAL: see HPI : Denies dysuria, frequency, incontinence, hematuria, urinary retention, flank pain. MUSCULOSKELETAL: Denies weakness, joint pain, or bony pain SKIN: No rash, no erythema, no pruritus NEUROLOGIC: Denies weakness, dizziness, headache, numbness, change in speech, confusion PSYCHIATRIC: No concerning psychosocial issues. 12 point review of systems is negative except for those stated above and HPI Patient History Medical History (Updated 06/24/21 @ 21:32 by Sandra Perales DO) Breast cancer Hypertension Hypothyroidism Migraine headache Surgical History Hx of cholecystectomy Social History Smoking Status: Former smoker Smoking Status: Former smoker alcohol intake frequency: a few times a week Alcohol type: wine Substance Use Type: does not use Exam Initial Vital Signs Initial Vital Signs: Vital Signs Pulse Rate 100 H 06/24/21 17:20 Respiratory Rate 20 06/24/21 17:20 Pulse Oximetry 95 06/24/21 17:20 GENERAL: Alert 70-year-old female does not feel how well in [no acute] distress. HEENT: Head atraumatic,EOMI, pupils reactive, face symmetric, [moist] mucous membranes CARDIOVASCULAR: Regular rate and rhythm without murmurs, rubs or gallops. RESPIRATORY: Breath sounds equal bilaterally, no wheezes rales or rhonchi. ABDOMEN: Soft, nontender. Normoactive bowel sounds all 4 quadrants. No guardin g or rebound. EXTREMITIES: Normal range of motion, no clubbing or edema. Neurovascularly intact NEUROLOGICAL: Alert and oriented x4.Normal gait and speech. SKIN: Warm, dry, no laceration, no petechiae, no rashes or lesions. Course Orders Ordered: ED Orders 06/24/21 17:40 Complete Blood Count AUTO DIFF Stat Comprehensive Metabolic Panel Stat Lipase Stat 06/24/21 20:26 CT abdomen pelvis w con Stat Discontinued Medications Sodium Chloride (Normal Saline 0.9%) 1,000 mls @ 1,000 mls/hr IV BOLUS ONE Stop: 06/24/21 18:37 Last Infusion: 06/24/21 19:08 Dose: 0 mls/hr Documented by: Admin: 06/24/21 17:48 Dose: 1,000 mls/hr Documented by: KBRYERS Ondansetron HCl (Ondansetron 4 Mg/2 Ml Inj) 4 mg IV NOW ONE Stop: 06/24/21 17:33 Last Admin: 06/24/21 17:48 Dose: 4 mg Documented by: MICHAEL Ondansetron HCl (Ondansetron 4 Mg/2 Ml Inj) 4 mg IV NOW ONE Stop: 06/24/21 20:27 Last Admin: 06/24/21 20:42 Dose: 4 mg Documented by: NELY Ondansetron HCl (Ondansetron 4 Mg Odt Prepack) 1 bottle MISC SEEINSTR ONE Stop: 06/24/21 21:33 Last Admin: 06/24/21 21:39 Dose: 1 bottle Documented by: NELY Pantoprazole Sodium (Pantoprazole 40 Mg Vial) 40 mg IV NOW ONE Stop: 06/24/21 20:27 Last Admin: 06/24/21 20:42 Dose: 40 mg Documented by: NELY Vital Signs Vital signs: Vital Signs - 8 hr 06/24/21 17:20 06/24/21 17:21 06/24/21 17:22 Temperature 98.7 F Pulse Rate 100 H 104 H 96 H Respiratory Rate 20 18 Blood Pressure 131/90 131/90 Pulse Oximetry 95 95 96 06/24/21 17:30 06/24/21 18:00 06/24/21 18:40 Temperature Pulse Rate 98 H 95 H 99 H Respiratory Rate 18 Blood Pressure 122/82 137/80 Pulse Oximetry 97 93 95 06/24/21 18:41 06/24/21 19:00 06/24/21 21:33 Temperature Pulse Rate 97 H 103 H 113 H Respiratory Rate 18 Blood Pressure 138/86 140/68 Pulse Oximetry 96 97 96 06/24/21 21:34 Temperature Pulse Rate 109 H Respiratory Rate Blood Pressure 146/86 H Pulse Oximetry 96 MDM - Nausea/Vomiting/Diarrhea Lab Data Result diagrams: 06/24/21 17:40 06/24/21 17:40 Labs: Lab Results 06/24/21 06/24/21 Range/Units 17:40 17:40 WBC 12.0 H (4.5-11.0) X10^3/uL RBC 5.88 H (4.0-5.2) X10^6/uL Hgb 18.3 H (12.0-16.0) g/dL Hct 52.9 H (36-46) % MCV 89.9 (80-100) fL MCH 31.2 (26-34) PG MCHC 34.7 (30-36) % RDW 14.5 (11.6-14.8) % Plt Count 329 (150-400) X10^3/uL Neut % (Auto) 70.8 (50-75) % Lymph % (Auto) 21.5 L (25-40) % [place] % (Auto) 6.3 (3-14) % Eos % (Auto) 0.3 L (2-4) % Baso % (Auto) 1.1 (0-2) % Neut # (Auto) 8500 H (8112-6490) /uL Lymph # (Auto) 2600 (0730-7605) /uL [place] # (Auto) 800 (0-900) /uL Eos # (Auto) 0 (0-450) /uL Baso # (Auto) 100 (0-100) /uL Sodium 128 L (137-145) mmol/L Potassium 3.0 L (3.4-5.1) mmol/L Chloride 86 L (98-107) mmol/L Carbon Dioxide 22 (22-32) mmol/L BUN 24 H (7-17) mg/dL Creatinine 1.28 H (0.52-1.04) mg/dL Estimated GFR 41.0 L (>60) mL/min BUN/Creatinine Ratio 18.8 (6-22) Glucose 155 H (80-110) mg/dL Calcium 8.9 (8.4-10.2) mg/dL Total Bilirubin 0.6 (0.2-1.3) mg/dL AST 86 H (14-36) IU/L ALT 64 H (<35) IU/L Alkaline Phosphatase 116 (38-126) U/L Total Protein 7.3 (6.3-8.2) g/dL Albumin 4.6 (3.5-5.0) g/dL Globulin 2.7 (1.7-4.1) g/dL Albumin/Globulin Ratio 1.7 (1.0-2.8) Lipase 188 (23-300) U/L Urine Dip Bedside Urine Glucose Negative Bedside Urine Bilirubin - Negative Bedside Urine Ketone - Negative Urine Specific [place] 1.025 Bedside Urine Occult Blood - Negative Bedside Urine pH 6.0 Bedside Urine Protein - Negative Bedside Urine Urobilinogen - Negative Bedside Urine Nitrite - Negative Bedside Urine Leukocytes - Negative Esterase Imaging Data CT scan - abdomen/pelvis: Radiologist's Impression: PROCEDURE:? CT ABDOMEN PELVIS W CON ? INDICATIONS:? nausea ? TECHNIQUE:? After the administration of intravenous contrast, axial sections acquired from the lung bases to the pubic symphysis.? Coronal and sagittal reformats were performed.? For radiation dose reduction, the following was used:? automated exposure control, adjustment of mA and/or kV according to patient size.? ? COMPARISON:? None. ? FINDINGS:? Image quality:? Excellent.? ? Lung bases:? Unremarkable. Heart:? No significant findings. ? ABDOMEN: Liver:? Unremarkable.? ? Gallbladder:? Status post cholecystectomy. Biliary ducts:? Unremarkable.? ? Pancreas:? Unremarkable.? ? Spleen:? Unremarkable.? ? Adrenal Glands:? Unremarkable.? ? Kidneys and Ureters:? Unremarkable.? ? ? Stomach and Bowel:? Multiple diverticula are seen in the colon without acute inflammatory changes to suggest acute diverticulitis.? Normal appendix.? Mild bowel wall thickening versus underdistention is seen throughout the majority of the colon, which is nonspecific but could indicate a mild colitis. Peritoneum:? No abnormal intraperitoneal fluid.? No free air.? ? Ventral Wall: ? No hernias.? Abdominal Nodes:? No retroperitoneal or mesenteric adenopathy by size criteria.? Vessels:? Aorta and inferior vena cava are normal in size.? ? PELVIS: Pelvic Organs:? Status post hysterectomy.? ? Bladder:? Unremarkable.? ? Pelvic Nodes: No enlarged lymph nodes.? Miscellaneous: No hernias are seen. ? ? ? Bones:? Multilevel degenerative changes are seen in the spine.? There is a chronic appearing ununited fracture of the lateral right 9th rib. ? ? IMPRESSION:? Mild bowel wall thickening throughout the colon may be related to underdistention versus a mild colitis.? There is mild colonic diverticulosis without signs of acute diverticulitis. ? ? Dictated by: Tano Vicente M.D. on 06/24/2021 at 21:08 ? ? Approved by: Tano Vicente M.D. on 06/24/2021 at 21:12 ? MDM Narrative Medical decision making narrative: Patient has had 3 days of nausea decreased appetite no vomiting diarrhea abdominal pain. Her blood work does show like she is hemoconcentrated with elevated hemoglobin of 18, and hematocrit creatinine slightly elevated 1.28. Liver enzymes are mildly elevated 86 in 60 for but previously in 2019 she also had similar enzymes. Bilirubin is negative. No significant right upper quadrant pain. CT did not show any abnormality. He initially felt better after Zofran but then waited in the ED for some time and nausea started coming back. She is given Protonix and a 2nd dose of Zofran. Overall feeling much better. Discharge Plan Departure Patient Disposition: Home Clinical Impression: Gastroenteritis Instructions: DI for Viral Gastroenteritis -- Adult, DI for Nausea -- Adult Activity Restrictions/Additional Instructions: *You have been diagnosed with nausea, gastroenteritis *What to do: Increase fluid intake as tolerated. He do have some evidence of dehydration. Recommend Gatorade or Gatorade like product *Continue to take medications as directed Zofran 4 mg every 8 hours if needed for nausea or vomiting-->SENT TO [facility] *Follow up with your primary care provider in 2-3 days *Return to ER if you should have persistent vomiting, diarrhea, increasing pain, fever any new, worsening or concerning symptoms Prescriptions: New ondansetron 4 mg tablet,disintegrating 4 mg PO Q8H PRN (Reason: nausea and vomiting) Qty: 10 RF: 0 No Action levothyroxine [Synthroid] 100 mcg tablet 100 mcg PO DAILY RF: 0 levothyroxine 100 mcg tablet 100 mcg PO QAM RF: 0 aspirin 81 mg Tablet,Chewable 81 mg PO QAM RF: 0 hydrochlorothiazide 25 mg tablet 25 mg PO QAM RF: 0 hydrocodone-acetaminophen [[place]] 5-325 mg tablet 1 tab PO Q4-6H PRN (Reason: pain) Qty: 7 RF: 0 lidocaine 5 % adhesive patch,medicated 1 patch TOP DAILY PRN (Reason: pain) Qty: 15 RF: 0 ondansetron 4 mg tablet,disintegrating 4 mg PO TID-QID PRN (Reason: nausea and vomiting) Qty: 10 RF: 0 metoclopramide HCl [Reglan] 10 mg tablet 10 mg PO Q6H PRN (Reason: nausea and vomiting) Qty: 10 RF: 0 cyclobenzaprine 5 mg tablet 5 mg PO TID PRN (Reason: muscle spasm) Qty: 10 RF: 0 Referrals: Isaak Vasquez DO [Primary Care Provider] -
--- NOTE | 2021-06-24 20:26 | DI.CT.S_ITS ---
PROCEDURE: CT ABDOMEN PELVIS W CON INDICATIONS: nausea TECHNIQUE: After the administration of intravenous contrast, axial sections acquired from the lung bases to the pubic symphysis. Coronal and sagittal reformats were performed. For radiation dose reduction, the following was used: automated exposure control, adjustment of mA and/or kV according to patient size. COMPARISON: None. FINDINGS: Image quality: Excellent. Lung bases: Unremarkable. Heart: No significant findings. ABDOMEN: Liver: Unremarkable. Gallbladder: Status post cholecystectomy. Biliary ducts: Unremarkable. Pancreas: Unremarkable. Spleen: Unremarkable. Adrenal Glands: Unremarkable. Kidneys and Ureters: Unremarkable. Stomach and Bowel: Multiple diverticula are seen in the colon without acute inflammatory changes to suggest acute diverticulitis. Normal appendix. Mild bowel wall thickening versus underdistention is seen throughout the majority of the colon, which is nonspecific but could indicate a mild colitis. Peritoneum: No abnormal intraperitoneal fluid. No free air. Ventral Wall: No hernias. Abdominal Nodes: No retroperitoneal or mesenteric adenopathy by size criteria. Vessels: Aorta and inferior vena cava are normal in size. PELVIS: Pelvic Organs: Status post hysterectomy. Bladder: Unremarkable. Pelvic Nodes: No enlarged lymph nodes. Miscellaneous: No hernias are seen. Bones: Multilevel degenerative changes are seen in the spine. There is a chronic appearing ununited fracture of the lateral right 9th rib. IMPRESSION: Mild bowel wall thickening throughout the colon may be related to underdistention versus a mild colitis. There is mild colonic diverticulosis without signs of acute diverticulitis. Dictated by: Tano Vicente M.D. on 06/24/2021 at 21:08 Approved by: Tano Vicente M.D. on 06/24/2021 at 21:12
[2021-06-24] MEDS: PANTOPRAZOLE 40 MG VIAL IV (20:42)
[2021-06-24] MEDS: ONDANSETRON 4 MG ODT PREPACK 1 BOTTLE MISC (21:39)
== END 2021-06-24 21:43 | disposition home or self-care (01) ==
PROVIDERS: Emergency Medicine; Emergency Provider Emergency Medicine; PCP Family Medicine
DX: K52.9 Noninfective gastroenteritis and colitis, unspecified (principal)
CPT/HCPCS: 36415; 74177; 80053; 81003; 83690; 85025; 96361; 96374; 96375; 96376; 99284; C9113; J2405

== ENCOUNTER 2021-06-25 10:35 | Observation (INO) | payer MEDICARE, OTHER, SELFPAY ==
[2021-06-25] VITALS (8 sets, daily range): BP systolic 112–141; BP diastolic 55–85; PULSE 67–94; RESP 16–18; TEMP 36.1–36.8; O2SAT 96–99; BMI 28.1
--- NOTE | 2021-06-25 11:27 | ED_ITS ---
HPI - Nausea/Vomiting/Diarrhea General Chief complaint: Nausea/Vomiting/Diarrhea Stated complaint: in last nigh, still having nausea/vomitting Time Seen by Provider: 06/25/21 11:27 Source: patient Mode of arrival: Ambulatory Limitations: no limitations History of Present Illness HPI Narrative: 70-year-old woman with a history of hypothyroidism, hyperlipidemia, hypertension who has had 4 days of significant nausea and vomiting was seen in the emergency room last night and diagnosed with a gastroenteritis and after discharge home began having some diarrhea. She returns today feeling dizzy when she stands up concerned that the Zofran isn't helping enough with the nausea and wondering if more fluid might not help. She does not describe significant fevers. The abdominal pain is simply from the diarrhea but minimal, no headaches, palpitations, cough, chest pain, lower extremity edema, rashes. From last night did show relative hyponatremia, hypokalemia and slight bone to creatinine as well as slightly elevated AST and ALT that are similar to prior blood work. Related Data Home Medications Medication Instructions Recorded Confirmed levothyroxine 100 mcg tablet 100 mcg PO DAILY 05/24/20 08/03/20 (Synthroid) aspirin 81 mg chewable tablet 81 mg PO QAM 07/26/20 08/03/20 hydrochlorothiazide 25 mg tablet 25 mg PO QAM 07/26/20 08/03/20 levothyroxine 100 mcg tablet 100 mcg PO QAM 07/26/20 08/03/20 Previous Rx's Medication Instructions Recorded cyclobenzaprine 5 mg tablet 5 mg PO TID PRN #10 tab 07/25/20 hydrocodone 5 mg-acetaminophen 325 1 tab PO Q4-6H PRN #7 tab 07/26/20 mg tablet ([place]) lidocaine 5 % topical patch 1 patch TOP DAILY PRN #15 each 07/26/20 metoclopramide HCl 10 mg tablet 10 mg PO Q6H PRN #10 tab 07/30/20 (Reglan) ondansetron 4 mg disintegrating 4 mg PO TID-QID PRN #10 tab 07/30/20 tablet ondansetron 4 mg disintegrating 4 mg PO Q8H PRN #10 tab 06/24/21 tablet Allergies Allergy/AdvReac Type Severity Reaction Status Date / Time lisinopril Allergy Severe Anaphylaxis Verified 06/25/21 10:51 Review of Systems Review of Systems Narrative: Remainder of complete review of systems is otherwise unremarkable except for that included in the HPI. Patient History Medical History (Updated 06/25/21 @ 14:35 by Cindi Dawson MD) Breast cancer Hypertension Hypothyroidism Migraine headache Surgical History Hx of cholecystectomy Social History Smoking Status: Former smoker Smoking Status: Former smoker alcohol intake frequency: a few times a week Alcohol type: wine Substance Use Type: does not use Exam Narrative Exam Narrative: General: Healthy appearing, in no acute distress. Able to give a complete and coherent history. Well-nourished well-developed HEENT: Moist mucous membranes, normal sclera with reactive pupils, Neck: No JVD, supple Respiratory: Lungs are clear to auscultation, no wheezing no rales no rhonchi. Full and symmetrical air movement Cardiac: Regular rate and rhythm no murmurs no bruits. Sitting heart rate is 80 standing heart rate is 100 and to Abdomen: Soft, mild diffuse tenderness without rebound or guarding, hyperactive bowel tones. No flank pain. Skin: Warm and dry, no rashes Neurologic: Grossly neurologically intact with no obvious asymmetries or abnormalities Extremities: No trauma, well perfused Psych: Cooperative, appropriate insight and affect Initial Vital Signs Initial Vital Signs: Vital Signs Temperature 98.2 F 06/25/21 10:45 Pulse Rate 84 06/25/21 10:45 Respiratory Rate 16 06/25/21 10:45 Blood Pressure 141/85 H 06/25/21 10:45 Pulse Oximetry 99 06/25/21 10:45 Course Orders Ordered: ED Orders 06/25/21 11:45 Complete Blood Count AUTO DIFF Stat Comprehensive Metabolic Panel Stat Magnesium Stat Sodium Chloride (Normal Saline 0.9%) 1,000 mls @ 150 mls/hr IV CONT GILA POTASSIUM CHLORIDE IN WATER (Potassium Cl 10 Meq/100 Ml [place]) 10 meq in 100 mls @ 100 mls/hr IV Q1H GILA Stop: 06/25/21 18:44 Discontinued Medications Diphenhydramine HCl (Diphenhydramine 50 Mg/Ml Vial) 25 mg IV NOW ONE Stop: 06/25/21 11:37 Last Admin: 06/25/21 11:53 Dose: 25 mg Documented by: MICHAEL Sodium Chloride (Normal Saline 0.9%) 1,000 mls @ 1,000 mls/hr IV BOLUS ONE Stop: 06/25/21 12:35 Last Infusion: 06/25/21 13:04 Dose: 0 mls/hr Documented by: Admin: 06/25/21 11:55 Dose: 1,000 mls/hr Documented by: MICHAEL Prochlorperazine (Prochlorperazine 10 Mg/2 Ml Vial) 10 mg IV NOW ONE Stop: 06/25/21 11:37 Last Admin: 06/25/21 11:53 Dose: 10 mg Documented by: MICHAEL Vital Signs Vital signs: Vital Signs - 8 hr 06/25/21 10:45 06/25/21 11:53 06/25/21 12:33 Temperature 98.2 F Pulse Rate 84 90 80 Respiratory Rate 16 18 Blood Pressure 141/85 H 141/75 H 121/83 Pulse Oximetry 99 97 06/25/21 13:52 Temperature Pulse Rate 83 Respiratory Rate 18 Blood Pressure 125/73 Pulse Oximetry 98 MDM - Nausea/Vomiting/Diarrhea Lab Data Result diagrams: 06/25/21 11:45 06/25/21 11:45 Labs: Lab Results 06/25/21 06/25/21 Range/Units 11:45 11:45 WBC 9.7 (4.5-11.0) X10^3/uL RBC 5.03 (4.0-5.2) X10^6/uL Hgb 15.7 (12.0-16.0) g/dL Hct 45.4 (36-46) % MCV 90.2 (80-100) fL MCH 31.2 (26-34) PG MCHC 34.6 (30-36) % RDW 14.3 (11.6-14.8) % Plt Count 267 (150-400) X10^3/uL Neut % (Auto) 72.4 (50-75) % Lymph % (Auto) 17.3 L (25-40) % [place] % (Auto) 8.5 (3-14) % Eos % (Auto) 0.6 L (2-4) % Baso % (Auto) 1.2 (0-2) % Neut # (Auto) 7000 (7973-0142) /uL Lymph # (Auto) 1700 (6659-3480) /uL [place] # (Auto) 800 (0-900) /uL Eos # (Auto) 100 (0-450) /uL Baso # (Auto) 100 (0-100) /uL Sodium 130 L (137-145) mmol/L Potassium 2.8 L (3.4-5.1) mmol/L Chloride 88 L (98-107) mmol/L Carbon Dioxide 35 H (22-32) mmol/L BUN 23 H (7-17) mg/dL Creatinine 1.36 H (0.52-1.04) mg/dL Estimated GFR 38.2 L (>60) mL/min BUN/Creatinine Ratio 16.9 (6-22) Glucose 135 H (80-110) mg/dL Calcium 9.4 (8.4-10.2) mg/dL Magnesium 1.7 (1.6-2.3) mg/dL Total Bilirubin 1.5 H (0.2-1.3) mg/dL AST 72 H (14-36) IU/L ALT 50 H (<35) IU/L Alkaline Phosphatase 109 (38-126) U/L Total Protein 6.9 (6.3-8.2) g/dL Albumin 4.3 (3.5-5.0) g/dL Globulin 2.6 (1.7-4.1) g/dL Albumin/Globulin Ratio 1.7 (1.0-2.8) Urine Dip Bedside Urine Glucose Negative Bedside Urine Bilirubin - Negative Bedside Urine Ketone - Negative Urine Specific [place] 1.015 Bedside Urine Occult Blood - Negative Bedside Urine pH 6 Bedside Urine Protein - Negative Bedside Urine Urobilinogen - Negative Bedside Urine Nitrite - Negative Bedside Urine Leukocytes - Negative Esterase MDM Narrative Medical decision making narrative: Patient is feeling significantly better however labs indicate that she still hyponatremic at 130., hypokalemia is worsening is down to 2.8, renal function is worse with a creatinine bump from 1.28 up to 1.36 and total bilirubin increasing from normal to 1.5 with AST and ALT remaining stable from yesterday. At this point will recommend hospitalization for continued hydration, help with nausea and treatment of her significant hypokalemia. 3:05 reviewed with hospitalist, . Admission is excepted. Discharge Plan Departure Patient Disposition: Admitted as Observation Clinical Impression: Acute hypokalemia, Gastroenteritis, Vomiting and diarrhea, Acute kidney injury
[2021-06-25] MEDS: diphenhydrAMINE 50 MG/ML VIAL 25 MG IV (11:53)
[2021-06-25] MEDS: PROCHLORPERAZINE 10 MG/2 ML VIAL IV (11:53)
[2021-06-25 11:55] LABS: Add Manual Diff / Slide Review NO; Basophils Absolute Auto 100 /uL (0-100); Basophils Percent Auto 1.2 % (0-2); Eosinophils Absolute Auto 100 /uL (0-450); Eosinophils Percent Auto 0.6 % (2-4); Hematocrit 45.4 % (36-46); Hemoglobin 15.7 g/dL (12.0-16.0); Lymphocytes Absolute Auto 1700 /uL (1100-4500); Lymphocytes Percent Auto 17.3 % (25-40); Mean Corpuscular HGB Conc 34.6 % (30-36); Mean Corpuscular Hemoglobin 31.2 PG (26-34); Mean Corpuscular Volume 90.2 fL (80-100); Monocytes Absolute Auto 800 /uL (0-900); Monocytes Percent Auto 8.5 % (3-14); Neutrophils Absolute Auto 7000 /uL (1500-7000); Neutrophils Percent Auto 72.4 % (50-75); Platelet Count 267 X10^3/uL (150-400); Red Blood Cell Count 5.03 X10^6/uL (4.0-5.2); Red Cell Distribution Width 14.3 % (11.6-14.8); White Blood Cell Count 9.7 X10^3/uL (4.5-11.0)
[2021-06-25] MEDS: SODIUM CHLORIDE 0.9% 1,000 ML 1000 ML IV (11:55)
[2021-06-25 12:11] LABS: Alanine Aminotransferase 50 IU/L (<35); Albumin 4.3 g/dL (3.5-5.0); Albumin Globulin Ratio 1.7 (1.0-2.8); Alkaline Phosphatase 109 U/L (38-126); Aspartate Aminotransferase 72 IU/L (14-36); BUN Creatinine Ratio 16.9 (6-22); Bilirubin Total 1.5 mg/dL (0.2-1.3); Blood Urea Nitrogen 23 mg/dL (7-17); Calcium 9.4 mg/dL (8.4-10.2); Carbon Dioxide 35 mmol/L (22-32); Chloride 88 mmol/L (98-107); Estimated Glomerular Filt Rate 38.2 mL/min (>60); Globulin 2.6 g/dL (1.7-4.1); Glucose 135 mg/dL (80-110); HEMOLYSIS < 15 (0-50); Magnesium 1.7 mg/dL (1.6-2.3); Potassium 2.8 mmol/L (3.4-5.1); Sodium 130 mmol/L (137-145); Total Protein 6.9 g/dL (6.3-8.2)
--- NOTE | 2021-06-25 13:04 | PC.NURSE ---
pt verbalizes i feel better after meds and ivf. po challenge started pt sipping water.
--- NOTE | 2021-06-25 13:53 | PC.NURSE ---
pt tolerating po challenge well no vomiting gettin up and down to urinate. pt reports still feeling better
[2021-06-25] MEDS: LORazepam 2 MG/ML INJ 1 MG IV (15:17)
[2021-06-25] MEDS: POTASSIUM CHLORIDE IN WATER 10 MEQ/100 ML PIGGYBACK 70 MEQ IV (15:17)
[2021-06-25] MEDS: SODIUM CHLORIDE 0.9% 1,000 ML 150 ML IV ×2 (15:17→17:10)
--- NOTE | 2021-06-25 15:18 | PC.NURSE ---
pt originally agreed to stay after speaking with md when rn entered room to begin ns at a rate and kcl iv infusions pt became anxious and unable to sit still and stated. I dont want to stay. i have potassium at home i dont want to stay. explain md wanted pt admitted to hospital for medical needs but i would speak to md about pts current wishes. spoke with md and then returned to speak to patient explaind md has concerns for all of her lab values especially very low potassium and decreased kidney function. explained that patient has a medical reason that requires hospital admission to correct and monitor both and that by leaving she leaves herself at risk of her heart stopping as pottasium is required for heart function . further explained if the pt continues to insist on leaving it would be against medical advice as er md would not be discharging the patient to home today. pt agreed to stay pt asking for something for anxiety MD ordered verbal ativan 1mg iv. kcl infusion slowed down as well secondary to burning that patient couldnt tolerate. iv infuses well, flushes well, positive blood return and no swelling at site. with slower infusion rate and after ativan iv pt is not tolerating kcl infusion. ns ivf are also running with kcl to help and arm is wrapped in warm blanket.
--- NOTE | 2021-06-25 16:19 | P.HP_ITS ---
History of Present Illness History of Present Illness Date Patient Seen: 06/25/21 Time Patient Seen: 15:00 Chief complaint: in last night, still having nausea/vomitting Narrative: Ms. Javed is a 70W with PMH of hypothyroidism, hyperlipidemia, hypertension, history of breast cancer who comes in to the hospital with nausea, vomiting, and diarrhea. She attended a potluck on Tuesday and ate a variety of foods. She became sick soon after, however she does not know of anyone else with similar symptoms. She is not having abdominal pain. No fevers/chills. No dysur ia. No blood in vomit or stool. No shortness of breath, cough or chest pain. She came in to the hospital yesterday and was diagnosed with gastroenteritis and was able to do fine with an PO challenge. However once she went home she continued to have nausea, vomiting, and diarrhea. She feels weak. In the ED, she had normal vital signs aside from mild hypertension. WBC 9.7 improved from yesterday. Na 130, potassium 2.8, co2 35, creatinine 1.36. Bili 1.5, ast 72, alt 50. Urinalysis unremarkable. She was given IV fluids and potassium and admitted for further treatment. Patient History Medical History Breast cancer Hypertension Hypothyroidism Migraine headache Surgical History Hx of cholecystectomy Family & Social History Safety & Behavioral: Feels Safe in Current Yes Environment Been Physically Hurt or No Threatened By a Person Tobacco & Substance use: Smoking Status Former smoker alcohol intake frequency a few times a week Substance Use Type does not use Meds Home Medications and Allergies Home Medications Medication Instructions Recorded Confirmed Type aspirin 81 mg chewable tablet 81 mg PO QAM 07/26/20 06/25/21 History ondansetron 4 mg disintegrating 4 mg PO TID-QID PRN #10 tab 07/30/20 06/25/21 Rx tablet ondansetron 4 mg disintegrating 4 mg PO Q8H PRN #10 tab 06/24/21 06/25/21 Rx tablet Adult One Daily Multivitamin 1 cap PO DAILY 06/25/21 06/25/21 History atenolol 25 mg tablet 25 mg PO DAILY 06/25/21 06/25/21 History ezetimibe 10 mg tablet 10 mg PO DAILY 06/25/21 06/25/21 History furosemide 20 mg tablet 20 mg PO DAILY 06/25/21 06/25/21 History hydrochlorothiazide 25 mg tablet 25 mg PO DAILY 06/25/21 06/25/21 History levothyroxine 150 mcg tablet 150 mcg PO DAILY 06/25/21 06/25/21 History (Synthroid) omega-3 fatty acids-vitamin E 1 cap PO DAILY 06/25/21 06/25/21 History 1,000 mg capsule Allergies Allergy/AdvReac Type Severity Reaction Status Date / Time lisinopril Allergy Severe Anaphylaxis Verified 06/25/21 10:51 Review of Systems Review of Systems Narrative: 14 systems reviewed and negative aside from what is noted in HPI Exam Vital Signs (past 8 hours): - 06/25/21 10:45 06/25/21 11:53 06/25/21 12:33 Temperature 98.2 F Pulse Rate 84 90 80 Respiratory Rate 16 18 Blood Pressure 141/85 H 141/75 H 121/83 Pulse Oximetry 99 97 06/25/21 13:52 06/25/21 15:15 Temperature Pulse Rate 83 76 Respiratory Rate 18 17 Blood Pressure 125/73 112/56 L Pulse Oximetry 98 96 Oxygen Delivery Method Room Air Narrative Exam Narrative: GEN: no acute distress HEENT: dry mucous membranes, PERRL NECK: no JVD, trachea midline CV: regular rate and rhythm, no murmurs PULM: clear bilateraly, no wheezes, rhonchi, rales ABD: soft, nontender, nondistended, no organomegaly, normal bowel sounds EXT: warm and well perfused, no edema SKIN: warm, dry, no rashes noted NEURO: awake, alert, oriented, no focal deficits PSYCH: anxious, pleasant Objective Labs Result Diagrams: 06/25/21 11:45 06/25/21 11:45 Labs: Laboratory Results - last 24 hr 06/25/21 06/25/21 11:45 11:45 WBC 9.7 RBC 5.03 Hgb 15.7 Hct 45.4 MCV 90.2 MCH 31.2 MCHC 34.6 RDW 14.3 Plt Count 267 Neut % (Auto) 72.4 Lymph % (Auto) 17.3 L Stephens % (Auto) 8.5 Eos % (Auto) 0.6 L Baso % (Auto) 1.2 Neut # (Auto) 7000 Lymph # (Auto) 1700 Stephens # (Auto) 800 Eos # (Auto) 100 Baso # (Auto) 100 Sodium 130 L Potassium 2.8 L Chloride 88 L Carbon Dioxide 35 H BUN 23 H Creatinine 1.36 H Estimated GFR 38.2 L BUN/Creatinine Ratio 16.9 Glucose 135 H Calcium 9.4 Magnesium 1.7 Total Bilirubin 1.5 H AST 72 H ALT 50 H Alkaline Phosphatase 109 Total Protein 6.9 Albumin 4.3 Globulin 2.6 Albumin/Globulin Ratio 1.7 Assessment & Plan Assessment & Plan narrative: 1. Probable viral gastroenteritis causing hypovolemia leading to hyponatremia, hypokalemia, and ROSA -wbc normal, no significant abdominal pain, vitals normal with no tachycardia or fever -at this time not indicated for antibiotics -probably has viral gi process -continue IV fluids -full liquid diet -zofran prn -order for potassium replacement -trend sodium and creatinine with IV fluid repletion 2. Transaminitis -mild and chronic -will continue to trend, but has been higher in the past -will consider further workup if worsens 3. Hypothyroidism -chronic, continue synthroid 4. HTN, chronic -hold atenolol, hctz, lasix for now 5. Hyperlipidemia -hold ezetimibe for now CODE: DNR Proxy: Jero Javed, spouse I have utilized all available immediate resources to obtain, update, or review the patient's current medications. Time Spent With Patient Critical Care time: I spent a total of [] minutes of critical care time on this patient's care today; this time is exclusive of procedural time.
[2021-06-25] MEDS: POTASSIUM CHLORIDE IN WATER 10 MEQ/100 ML PIGGYBACK 100 MEQ IV ×3 (16:28→23:25)
[2021-06-25 16:36] LABS: COVID19 - ADMIT (NP swab/PCR) Negative (Negative)
[2021-06-25] MEDS: POTASSIUM CHLORIDE 20 MEQ/15 ML UDC 40 MEQ PO (17:08)
[2021-06-25] MEDS: LORazepam 0.5 MG TABLET PO (20:35)
[2021-06-26 00:45] VITALS: BP 159/69; PULSE 75; RESP 16; TEMP 36.2; O2SAT 96
[2021-06-26 04:21] VITALS: BP 118/72; PULSE 76; RESP 16; TEMP 36.1; O2SAT 98
[2021-06-26 05:39] LABS: Add Manual Diff / Slide Review NO; Basophils Absolute Auto 0 /uL (0-100); Basophils Percent Auto 0.8 % (0-2); Eosinophils Absolute Auto 200 /uL (0-450); Eosinophils Percent Auto 3.5 % (2-4); Hematocrit 40.9 % (36-46); Hemoglobin 13.8 g/dL (12.0-16.0); Lymphocytes Absolute Auto 1900 /uL (1100-4500); Lymphocytes Percent Auto 34.6 % (25-40); Mean Corpuscular HGB Conc 33.7 % (30-36); Mean Corpuscular Hemoglobin 31.1 PG (26-34); Mean Corpuscular Volume 92.5 fL (80-100); Monocytes Absolute Auto 500 /uL (0-900); Monocytes Percent Auto 8.1 % (3-14); Neutrophils Absolute Auto 3000 /uL (1500-7000); Platelet Count 187 X10^3/uL (150-400); Red Blood Cell Count 4.43 X10^6/uL (4.0-5.2); Red Cell Distribution Width 14.3 % (11.6-14.8); White Blood Cell Count 5.6 X10^3/uL (4.5-11.0)
[2021-06-26 06:03] LABS: BUN Creatinine Ratio 12.9 (6-22); Blood Urea Nitrogen 17 mg/dL (7-17); Carbon Dioxide 34 mmol/L (22-32); Chloride 101 mmol/L (98-107); Estimated Glomerular Filt Rate 39.6 mL/min (>60); Glucose 116 mg/dL (80-110); HEMOLYSIS < 15 (0-50); Magnesium 1.6 mg/dL (1.6-2.3); Potassium 3.5 mmol/L (3.4-5.1); Sodium 136 mmol/L (137-145)
[2021-06-26 06:08] LABS: Alanine Aminotransferase 37 IU/L (<35); Albumin 3.3 g/dL (3.5-5.0); Albumin Globulin Ratio 1.5 (1.0-2.8); Alkaline Phosphatase 79 U/L (38-126); Aspartate Aminotransferase 47 IU/L (14-36); Bilirubin Unconjugated 0.9 mg/dL (0.0-1.1); Globulin 2.2 g/dL (1.7-4.1); HEMOLYSIS < 15 (0-50); Total Protein 5.5 g/dL (6.3-8.2)
[2021-06-26] MEDS: SODIUM CHLORIDE 0.9% 1,000 ML 150 ML IV (06:53)
[2021-06-26 07:00] VITALS: O2SAT 98
[2021-06-26 08:08] VITALS: BP 130/74; PULSE 74; RESP 14; TEMP 36.7; O2SAT 97
[2021-06-26] MEDS: ENOXAPARIN 40 MG/0.4 ML SYRINGE SUBCUT (08:14)
[2021-06-26] MEDS: ONDANSETRON 4 MG/2 ML INJ IV (08:26)
[2021-06-26] MEDS: ACETAMINOPHEN 325 MG TABLET 650 MG PO (09:38)
--- NOTE | 2021-06-26 10:55 | CM.DANOTE ---
Patient is a 70 yo female who was admitted on 06/25/21 for N/V/D. Pt has [facility] and [employer] for insurance and her PCP is Dr. Isaak Vasquez. EMR was reviewed. Per MD, pt with likely gastroenteritis and getting IV-fluids and zofran and requested something for anxiety. Per RN, pt was getting quite anxious and wanting to leave yesterday but when explained that her labs were not stable for safe d/c yet and would be AMA she was agreeable to remain. SW met bedside with pt and spouse and explained role and they confirm that they live in [place] at home and pt is independent with ADL's at baseline but does appear quite anxious and states that she is just ready to get back home as soon as possible. They deny any d/c needs and spouse states he is agreeable with transporting pt home once discharge confirmed and no questions or concerns at this time. Per MD, pt is stable for d/c and wrote orders and pt was dressed and spouse transporting home. Plan: Patient discharged to home this morning via spouse POV and no SW needs at this time. NOHEMI Gonzalez Discharge Planning/Care Management Advanced directive, confirm from FAMILY Start: 06/25/21 17:38 Freq: Q24H Status: Active Protocol: Document 06/25/21 17:38 (Rec: 06/25/21 18:10 [id number]) Advance Directive, confirm on record Time 18:09 Person contacted Jackie Kimbrough Copy received Yes CM Discharge Assessment Start: 06/26/21 10:52 Freq: Status: Active Protocol: Document 06/26/21 10:53 BF (Rec: 06/26/21 10:55 [id number]) Discharge Planning Assessment Assigned [employer] Engineer NOHEMI Rogers DPOA/Assigned Designee Name spouse Foster Contact Information [phone] Advance Directives? Yes Advance Directives on File No History Provided By Patient,Significant Other, Medical Record Has Patient been admitted in last 30 No days? Prior Living Arrangements House Household Members spouse Type of transporation used prior to Relies on Others admit Independent with ADL's Yes Is patient alert and oriented? Yes Caregiver for Another No Barriers to Discharge No Discharge Plan Home Transportation Arrangement Spouse is bedside and will transport home Referrals Initiated None needed Whiteboard Updated in Patient Room with Yes name and ext. # of [employer] Engineer Review Status In Process Please Provide Date Initial DC 06/26/21 Assessment Was Performed Next Review Type Continued Stay Review
--- NOTE | 2021-06-26 10:55 | PC.NURSE ---
Patient c/o nausea with breakfast, Zofran IV administered. Patient denies abdominal pain or emesis. Patient ambulating independently in the room. Voiding without complication. Reports BM 06/25 but no diarrhea on this shift. VSS, HR irregularly irregular, tele on. Patient denies dizziness, lightheadedness, SOB or chest pain. Refused SCD's. IV removed for discharge. Tele off. Patient tolerated. Patient and given discharge instructions regarding f/u appointment with PCP, s/s of worsening condition, diet and medication. Patient verbalized understanding. Patient discharged via wheelchair to main entrance.
--- NOTE | 2021-06-26 12:19 | PM.DS.1 ---
History of Present Illness History of Present Illness Chief complaint: in last night, still having nausea/vomitting Narrative: Ms. Javed is a 70W with PMH of hypothyroidism, hyperlipidemia, hypertension, history of breast cancer who comes in to the hospital with nausea, vomiting, and diarrhea. She attended a [employer] on Tuesday and ate a variety of foods. She became sick soon after, however she does not know of anyone else with similar symptoms. She is not having abdominal pain. No fevers/chills. No dysuria. No blood in vomit or stool. No shortness of breath, cough or chest pain. She came in to the hospital yesterday and was diagnosed with gastroenteritis and was able to do fine with an PO challenge. However once she went home she continued to have nausea, vomiting, and diarrhea. She feels weak. In the ED, she had normal vital signs aside from mild hypertension. WBC 9.7 improved from yesterday. Na 130, potassium 2.8, co2 35, creatinine 1.36. Bili 1.5, ast 72, alt 50. Urinalysis unremarkable. She was given IV fluids and potassium and admitted for further treatment. Discharge Providers Provider Date of admission: 06/25/21 15:05 Discharge Date: 06/26/21 Primary care physician: Isaak Vasquez DO Discharge provider: Juan Kee MD Summary Hospital Course Discharge Diagnosis: 1. Probable viral gastroenteritis causing hypovolemia, hyponatremia, hypokalemia 2. CKD stage 2-3 3. Transaminitis 4. Hypothyroidism 5. Hypertension 6. Hyperlipidemia Hospital Course: Ms. Javed came in to the hospital with vomiting, abdominal pain and diarrhea. She was noted to have hypokalemia and hyponatremia. She received IV fluids and improved. She received potassium repletion. She likely had a gastroenteritis. She had mild transaminitis that improved. On day of discharge she tolerated diet without symptoms. Exam Vital Signs (past 8 hours): Oxygen Delivery Method Room Air Oxygen Flow Rate 0 Narrative Exam Narrative: ?GEN: no acute distress HEENT: moist mucous membranes, PERRL NECK: no JVD, trachea midline CV: regular rate and rhythm, no murmurs PULM: clear bilateraly, no wheezes, rhonchi, rales ABD: soft, nontender, nondistended, no organomegaly, normal bowel sounds EXT: warm and well perfused, no edema SKIN: warm, dry, no rashes noted NEURO: awake, alert, oriented, no focal deficits PSYCH: anxious, pleasant Objective Labs Result Diagrams: 06/26/21 05:05 06/26/21 05:05 [facility] Medical History Breast cancer Hypertension Hypothyroidism Migraine headache Surgical History Hx of cholecystectomy Social History household members: spouse Smoking Status: Former smoker Discharge Plan Discharge Plan Patient Disposition: Home Provider Discharge Comment: Ms. Javed came in with a likely viral gastroenteritis. She had abnormal electrolytes. She had nausea, vomiting, diarrhea. She felt better in the hospital with IV fluids and electrolyte replacement. She should stop her furosemide and hydrochlorothiazide for now, as they can cause abnormal electrolytes. Please try to follow up with your PCP within one week and discuss restarting these medications. You were also in a new abnormal heart rhythm atrial fibrillation. We discussed possibly starting a blood thinner for this, you want to discuss this with your PCP first. Please follow up about this. Discharge orders & Medications Prescriptions: Continued aspirin 81 mg Tablet,Chewable 81 mg PO QAM RF: 0 ondansetron 4 mg tablet,disintegrating 4 mg PO Q8H PRN (Reason: nausea and vomiting) Qty: 10 RF: 0 Adult One Daily Multivitamin 1 cap PO DAILY RF: 0 atenolol 25 mg Tablet 25 mg PO DAILY RF: 0 levothyroxine [Synthroid] 150 mcg Tablet 150 mcg PO DAILY RF: 0 ezetimibe 10 mg Tablet 10 mg PO DAILY RF: 0 omega-3 fatty acids-vitamin E 1,000 mg Capsule 1 cap PO DAILY RF: 0 Discontinued ondansetron 4 mg tablet,disintegrating 4 mg PO TID-QID PRN (Reason: nausea and vomiting) Qty: 10 RF: 0 hydrochlorothiazide 25 mg Tablet 25 mg PO DAILY RF: 0 furosemide 20 mg Tablet 20 mg PO DAILY RF: 0 Follow up/Referrals: Isaak Vasquez DO [Primary Care Provider] - Diet/Activity/Treatments Diet: Regular Visit Report/Discharge Packet Instructions: DI for Atrial Fibrillation Discharge Data Primary Care Provider: Isaak Vasquez Attending Provider: Juan Kee MIPS - DC The patient has current or prior documentation of left ventricular ejection fraction (LVEF) less than 40%, or moderate or severely depressed left ventricular systolic function.: No
== END 2021-06-26 10:40 | disposition home or self-care (01) ==
LOC: ED 14:35 → AC 15:06
PROVIDERS: Admitting Provider Internal Medicine; Emergency Provider Emergency Medicine; PCP Family Medicine; Visit Provider Internal Medicine
DX: R11.2 Nausea with vomiting, unspecified (principal); R19.7 Diarrhea, unspecified; E86.1 Hypovolemia; E87.1 Hypo-osmolality and hyponatremia; E87.6 Hypokalemia; E03.9 Hypothyroidism, unspecified; R74.01 Elevation of levels of liver transaminase levels; I12.9 Hypertensive chronic kidney disease with stage 1 through stage 4 chronic kidney disease, or unspecified chronic kidney disease; N18.2 Chronic kidney disease, stage 2 (mild); Z87.891 Personal history of nicotine dependence; Z20.822 Contact with and (suspected) exposure to COVID-19
CPT/HCPCS: 36415; 80048; 80053; 80076; 81003; 83735; 85025; 87635; 96361; 96365; 96375; 99284; C9803; G0378; J0780; J1200; J1650; J2060; J2405

== ENCOUNTER → 2021-07-08 08:22 | Outpatient (CLI) | payer MEDICARE, OTHER, SELFPAY ==
[2021-06-25 17:33] VITALS: BMI 28.1
[2021-07-08 13:32] LABS: COVID19 -Nasal RAPID Negative (Negative)
== END ==
PROVIDERS: PCP Family Medicine; Visit Provider Nurse Practitioner Family
DX: Z20.822 Contact with and (suspected) exposure to COVID-19 (principal)
CPT/HCPCS: 87635; C9803

== ENCOUNTER 2021-07-09 10:35 | Day surgery (SDC) | payer MEDICARE, OTHER, SELFPAY ==
[2021-06-25 17:33] VITALS: BMI 28.1
[2021-07-06 14:46] VITALS: BMI 26.2
[2021-07-09] VITALS (8 sets, daily range): BP systolic 90–135; BP diastolic 49–89; PULSE 65–81; RESP 12–22; TEMP 36–36.7; O2SAT 92–98; BMI 26.9
[2021-07-09] MEDS: LACTATED RINGERS 1,000 ML 42 ML IV (11:13)
[2021-07-09] MEDS: OXYMETAZOLINE NASAL SPRAY 15 ML 2 SPRAYS NASAL ×2 (11:18→14:00)
--- NOTE | 2021-07-09 12:58 | PM.PREOP ---
Pre-operative Note Interval Note History & Physical reviewed/Exam performed by Physician: Yes Changes to H&P: No
--- NOTE | 2021-07-09 12:58 | PM.OP.1 ---
Operative Date/Time/Diagnoses Date of procedure: 07/09/21 Time of procedure: 13:51 Pre-op diagnosis: Closed nasal fracture with external nasal deformity Post-op diagnosis: same Procedure & Clinicians Procedure: Closed reduction nasal fracture without stabilization Same procedure as scheduled: Yes Indications: 70-year-old female suffered a ground level fall 06/29 with displaced nasal fracture with external nasal deformity. Following discussion of the material risks benefits complications and alternatives, she elected to proceed with closed reduction under general anesthesia. Surgeon: Ricci Dc Click Yes if Unassisted: Yes Anesthesia Type: General Operative Notes Findings: Elevated right nasal bone reduced, slightly depressed left nasal bone elevated Estimated Blood Loss (mL): 0 Procedure in detail: Following identification and confirmation of consent, the patient received preoperative Afrin nasal spray. She was brought to the operating room suite and placed in the supine position. TIVA was induced and I packed cotton tightly under each nasal bone that had been saturated with Afrin and 4% lidocaine. After 1 minute, packing was removed and external digital pressure over the elevated right nasal bone was applied, simultaneously the Boies elevator underneath the left slightly depressed nasal bone was used. Reduction was successful and there was no significant bleeding. She was awakened in the operating room taken recovery room without known complication Post-operative Condition: stable Disposition: same day surgery Plan for aftercare: Ice as tolerated the next 24-48 hours, Afrin for any bleeding, Tylenol and/or Advil for pain control. Follow-up in 2-4 weeks if desired.
--- NOTE | 2021-07-09 13:43 | SUR.OPER ---
Supine on padded OR bed, head on pillow, arms secured on padded arm boards at <90 degrees abduction, legs uncrossed, safety belt at thigh, tape over blanket over lower legs.
[2021-07-09] MEDS: LIDOCAINE 4% SOLN 50 ML 20 ML TOP (14:01)
[2021-07-09] MEDS: OXYCODONE/ACETAMINOPHEN 5/325 TABLET 1 TAB PO ×2 (14:10→15:17)
[2021-07-09] MEDS: fentaNYL 100 MCG/2 ML INJ IV (14:13)
--- NOTE | 2021-07-09 14:58 | SUR.PHASEI ---
Patient noted to be in atrial fibrillation upon transfer to PACU. Dr. ny notified and ordered EKG. EKG completed and confirmed AFIB. Dr. Ny looked at EKG and talked to patient. Stated to have patient see primary care provider as soon as possible either today or tomorrow. Appointment made with Dr. Barreto at [facility] for noon tomorrow. Patient asymptomatic. Patient aware of appointment and put information on discharge paperwork.
== END 2021-07-09 15:44 | disposition home or self-care (01) ==
PROVIDERS: PCP Family Medicine; Referring Provider Otolaryngology; Visit Provider Otolaryngology
PROC: 0NSBXZZ Reposition Nasal Bone, External Approach (ICD-10-PCS; CPT 21337; principal; 2021-07-09 12:15)
DX: S02.2XXA Fracture of nasal bones, initial encounter for closed fracture (principal); W01.10XA Fall on same level from slipping, tripping and stumbling with subsequent striking against unspecified object, initial encounter; Y92.002 Bathroom of unspecified non-institutional (private) residence as the place of occurrence of the external cause; S00.83XA Contusion of other part of head, initial encounter; I10 Essential (primary) hypertension; Z86.79 Personal history of other diseases of the circulatory system
CPT/HCPCS: 21337; 93005; A9270; J2250; J2704; J3010

== ENCOUNTER → 2021-07-22 12:13 | Outpatient (CLI) | payer MEDICARE, OTHER, SELFPAY ==
[2021-06-25 17:33] VITALS: BMI 28.1
--- NOTE | 2021-07-22 12:15 | DI.RAD.S_ITS ---
PROCEDURE: XR LUMBAR SPINE MIN 4V INDICATIONS: BACK PAIN TECHNIQUE: 5 views of the lumbar spine were acquired, including bilateral oblique views COMPARISON: None. FINDINGS: Bones: Suggestion of 6 nonrib-bearing vertebrae with lumbarization of S1. Degenerative changes of the endplates with osteophytosis and sclerosis as well as mild to moderate disc height loss, most prominent at L3-4 and L4-5. Facet arthrosis, most prominent at L5-S2. No vertebral body compression fractures. No suspicious bony lesions. Soft tissues: Overlying bowel gas pattern is normal. No suspicious soft tissue calcifications. Oblique images: No pars defects. IMPRESSION: No acute osseous abnormality. Dictated by: Christopher Villafuerte M.D. on 07/22/2021 at 13:00 Approved by: Christopher Villafuerte M.D. on 07/22/2021 at 13:06
== END ==
PROVIDERS: PCP Family Medicine; Referring Provider Physical Medicine & Rehabilitation; Visit Provider Physical Medicine & Rehabilitation
DX: M54.9 Dorsalgia, unspecified (principal); M47.817 Spondylosis without myelopathy or radiculopathy, lumbosacral region
CPT/HCPCS: 72110; 99214

== ENCOUNTER → 2021-08-03 10:34 | Outpatient (CLI) | payer MEDICARE, OTHER, SELFPAY ==
[2021-06-25 17:33] VITALS: BMI 28.1
[2021-08-03 11:07] LABS: COVID19 -Nasal RAPID Negative (Negative)
== END ==
PROVIDERS: PCP Family Medicine; Visit Provider Physical Medicine & Rehabilitation
DX: Z20.822 Contact with and (suspected) exposure to COVID-19 (principal)
CPT/HCPCS: 87635; C9803

== ENCOUNTER 2021-08-04 09:16 | Outpatient (CLI) | payer MEDICARE, OTHER, SELFPAY ==
[2021-06-25 17:33] VITALS: BMI 28.1
[2021-08-04] VITALS (10 sets, daily range): BP systolic 118–163; BP diastolic 58–92; PULSE 71–79; RESP 13–27; TEMP 36.6; O2SAT 96–100
--- NOTE | 2021-08-04 09:18 | DI.RAD.S_ITS ---
PROCEDURE: PAIN L/S TRANSFORAMINAL INJECT INDICATIONS: SPONDYLOSIS COMPARISON: [facility], CR, XR LUMBAR SPINE MIN 4V, 07/22/2021, 12:08. FINDINGS: Fluoroscopic spot filming was performed to verify placement of a spinal needle at the L4-L5 level, as labeled on the films. Appropriate location of the needle tip was confirmed by injection of iodinated contrast. IMPRESSION: Intraprocedural examination within normal limits. Dictated by: Justin Ivy M.D. on 08/04/2021 at 10:22 Approved by: Justin Ivy M.D. on 08/04/2021 at 10:22
[2021-08-04] MEDS: fentaNYL 100 MCG/2 ML INJ 50 MCG IV (10:48)
[2021-08-04] MEDS: MIDAZOLAM 5 MG/5 ML VIAL IV (10:48)
[2021-08-04] MEDS: BUPIVACAINE 0.25% (PF) VIAL 2 ML INJ (10:54)
[2021-08-04] MEDS: IOPAMIDOL 15 ML VIAL 3 ML INJ (10:54)
[2021-08-04] MEDS: DEXAMETHASONE 10 MG/ML VIAL 20 MG INJ (10:55)
[2021-08-04] MEDS: BETAMETHASONE 30 MG/5 ML MDV 12 MG INJ (10:55)
--- NOTE | 2021-08-04 11:05 | P.PCN_ITS ---
Date/Time/Diagnoses Date of procedure: 08/04/21 Time of procedure: 11:05 Pre-procedure diagnosis: 1. FORAMINAL STENOSIS WITH LE SYMPTOMS Post-procedure diagnosis: same Procedure Notes Procedure: 1. FLUOROSCOPICALLY GUIDED CONTRAST CONTROLLED TRANSFORAMINAL EPIDURAL STEROID INJECTION - RIGHT L4/5 TFESI Indications: Jackie is referred by Dr. Vasquez for treatment of Foraminal Stenosis with Right LE Symptoms Physician: Kris Buck Total Fluoroscopy time (seconds): 7 Total sedation minutes: 10 Complications: none Procedure in detail & Post-procedure care: FINDINGS Foraminal Nerve Root Compression secondary to disc disease and facet hypertrophy DESCRIPTION OF PROCEDURE Following review of allergy and review of potential side effects and complications, including, but not necessarily limited to, infection, allergic reaction, local tissue breakdown, stroke, temporary or permanent nerve injury, paralysis, and possible , the patient indicated that the patient understood and agreed to proceed. An informed consent document was signed by the patient, witnessed by a nurse, and placed in the patient's chart. Additionally, other treatment options including medications, modalities, and physical therapy were reviewed with the patient. After review of previous anaesthesic history and IV conscious sedation the patient was deemed safe to proceed with today?s procedure with IV conscious sedation as ASA class II designation. Safety time-out was performed to confirm patient ID, procedure to be performed and site of procedure. IV sedation was accomplished with a combination of 2mg of Versed and 50mcg of Fentanyl was administered by the RN after DO order, titrated to patient comfort during the course of the procedure while the patient remained responsive to all verbal com mands In the prone position following sterile prep and drape of the lumbar region, the right L4/5 posterior neuroforamen was identified fluoroscopically. The skin was anesthetized via a 25-gauge 1.5-inch needle with 1% lidocaine solution. At this point, a 25-gauge 3.5-inch spinal needle was atraumatically introduced and advanced under fluoroscopic guidance through the posterior right L4/5 ne uroforamen to approximately the anterior aspect of the canal. Depth was confirmed on lateral view. Following negative aspiration, injection of approximately 1.5cc of Isovue 200 under live fluoroscopy in the AP view confirmed excellent flow along the nerve root, into the epidural space without vascular or intrathecal uptake observed Radiological data, including multiple fluoroscopic views of the lumbosacral spine, reveal a spinal needle at the right L4/5 posterior neuroforamen. Subsequent views show flow of contrast material flowing superiorly and inferiorly along the nerve root confirming epidural flow. Subsequently, a test dose of 1.5 cc of 1% lidocaine solution was administered and patient was observed for two minutes for signs or symptoms of complications, including abdominal pain, shortness of breath, bilateral upper or lower extremity weakness, nausea and vomiting, prior to steroid injection. At this point, a total of 4cc or 20mg of dexamethasone and 12mg of betamethasone was injected without incident. The procedure tolerated the procedure well without signs or symptoms of complications prior to transfer to the recovery area continued monitoring without incident. The patient was then transferred to the recovery area where they were observed for an appropriate time after the injection. The patient reported a VAS score of 7 prior to the procedure and a post-p rocedure VAS of 0. POST OP INSTRUCTIONS The patient was provided a Pain Log to continue to record their response to the target-specific procedure prior to follow-up visit with their referring physician. Additionally, specific post-injection care instructions and a contact number to our office were provided if concerns arise regarding possible complications associated with the procedure are suspected.
--- NOTE | 2021-08-04 11:54 | PC.NURSE ---
pt almost fully recovered for discahrge at 1120 but was unable to put full body weight / support self especially on left. Will continue to exercise left extremity and try standing / walking q 10 minutes until able to safely ambulate and meet full discharge criteria
== END 2021-08-04 12:05 | disposition home or self-care (01) ==
LOC: RAD 09:17
PROVIDERS: PCP Family Medicine; Referring Provider Physical Medicine & Rehabilitation; Visit Provider Physical Medicine & Rehabilitation
DX: M48.061 Spinal stenosis, lumbar region without neurogenic claudication (principal); M51.16 Intervertebral disc disorders with radiculopathy, lumbar region
CPT/HCPCS: 64483; 99152; J0702; J1100; J2250; J3010

== ENCOUNTER 2021-08-05 08:31 | Emergency (ER) | payer MEDICARE, OTHER, SELFPAY ==
[2021-06-25 17:33] VITALS: BMI 28.1
[2021-08-05] VITALS (10 sets, daily range): BP systolic 109–160; BP diastolic 55–76; PULSE 81–100; RESP 18–25; TEMP 36.5; O2SAT 94–98; BMI 29.0
[2021-08-05] MEDS: SODIUM CHLORIDE 0.9% 1,000 ML 1000 ML IV (08:54)
[2021-08-05] MEDS: diphenhydrAMINE 50 MG/ML VIAL 25 MG IV (08:54)
[2021-08-05] MEDS: METOCLOPRAMIDE 10 MG/2 ML INJ IV (08:54)
[2021-08-05 08:55] LABS: Add Manual Diff / Slide Review NO; Basophils Absolute Auto 0 /uL (0-100); Basophils Percent Auto 0.2 % (0-2); Eosinophils Absolute Auto 0 /uL (0-450); Hematocrit 46.5 % (36-46); Hemoglobin 15.8 g/dL (12.0-16.0); Lymphocytes Absolute Auto 900 /uL (1100-4500); Lymphocytes Percent Auto 5.8 % (25-40); Mean Corpuscular Hemoglobin 31.9 PG (26-34); Mean Corpuscular Volume 93.7 fL (80-100); Monocytes Absolute Auto 700 /uL (0-900); Neutrophils Absolute Auto 14600 /uL (1500-7000); Platelet Count 258 X10^3/uL (150-400); Red Blood Cell Count 4.96 X10^6/uL (4.0-5.2); Red Cell Distribution Width 15.1 % (11.6-14.8); White Blood Cell Count 16.2 X10^3/uL (4.5-11.0)
--- NOTE | 2021-08-05 08:59 | ED_ITS ---
HPI - Headache General Chief Complaint: Headache Stated Complaint: Migraine post spinal injection Time Seen by Provider: 08/05/21 08:33 Source: patient Mode of arrival: Ambulatory Limitations: no limitations History of Present Illness HPI Narrative: Patient is a 70-year-old female. Does have a history of headaches but she states is been several years since she has had a headache. Yesterday underwent a lumbar epidural injection on the right side. She states that the procedure went well. Approximately midnight last night she started to have a headache. States started in the back of her head and radiates to the front. Was of gradual onset. It is worse on the left than the right. It is also worse by lying down. Somewhat better with sitting up. Is having photophobia. Tried some Tylenol last evening and also had a regular strength Tylenol this morning at 0700 hours. No relief from this. Also tried gabapentin last night with no relief. No neurologic symptoms. She also states that the discomfort is made somewhat worse by touching the left side of her neck on the back. Related Data Home Medications Medication Instructions Recorded Confirmed aspirin 81 mg chewable tablet 81 mg PO QAM 07/26/20 07/22/21 atenolol 25 mg tablet 25 mg PO DAILY 06/25/21 07/22/21 ezetimibe 10 mg tablet 10 mg PO DAILY 06/25/21 07/22/21 levothyroxine 150 mcg tablet 150 mcg PO DAILY 06/25/21 07/22/21 (Synthroid) multivitamin 1 tab PO DAILY #0 06/25/21 07/22/21 omega-3 fatty acids-vitamin E 1 cap PO DAILY 06/25/21 07/22/21 1,000 mg capsule furosemide 20 mg tablet 10 mg PO QAM 07/09/21 07/22/21 hydrochlorothiazide 25 mg tablet 25 mg PO DAILY 07/09/21 07/22/21 apixaban 5 mg tablet (Eliquis) 5 mg PO BID 07/22/21 07/22/21 cholecalciferol (vitamin D3) 50 50 mcg PO DAILY 07/22/21 07/22/21 mcg (2,000 unit) capsule potassium chloride 10 mEq 20 meq PO DAILY 07/22/21 07/22/21 capsule,extended release Previous Rx's Medication Instructions Recorded ondansetron 4 mg disintegrating 4 mg PO Q8H PRN #10 tab 06/24/21 tablet Allergies Allergy/AdvReac Type Severity Reaction Status Date / Time lisinopril Allergy Severe Anaphylaxis Verified 07/22/21 13:28 metformin AdvReac Vomiting Verified 07/22/21 13:28 Review of Systems Constitutional Constitutional: Reports headache(s) Eyes Eyes: Reports photophobia ENT Ears, Nose, Mouth, and Throat: Reports system reviewed and no additional complaints, except as documented, Denies vertigo, Denies dizziness, Reports head ache(s) and Reports neck pain Cardiovascular Cardiovascular: Reports as per HPI and Reports system reviewed and no additional complaints, except as documented Respiratory Respiratory: Reports as per HPI and Reports system reviewed and no additional complaints, except as documented Gastrointestinal Gastrointestinal: Reports system reviewed and no additional complaints, except as documented Musculoskeletal Musculoskeletal: Denies back pain and Reports neck pain Integumentary/Breasts Skin/Breast: Reports system reviewed and no additional complaints, except as documented Neurologic Neurologic: Denies vertigo, Denies dizziness and Reports headache(s) Endocrine Endocrine: Reports system reviewed and no additional complaints, except as documented Hematologic/Lymphatic On Anticoagulants: No Allergic/Immunologic Allergic/Immunologic: Reports system reviewed and no additional complaints, except as documented Patient History Medical History Atrial fibrillation Breast cancer Chronic back pain Chronic pancreatitis Depression Heart murmur HLD (hyperlipidemia) Hypertension Hypothyroidism Lumbar radiculopathy Migraine headache Nose fracture (~06/29/21) Tinnitus Surgical History History of colonoscopy History of hysterectomy Hx of breast surgery Hx of cholecystectomy Hx of oophorectomy Hx of tonsillectomy Family History Father Brain tumor Congestive heart failure Mother Hypertension Stroke Grandfather Stroke Social History household members: spouse Smoking Status: Former smoker alcohol intake: current Smoking Status: Former smoker alcohol intake frequency: a few times a week Alcohol type: wine Substance Use Type: does not use Exam Initial Vital Signs Initial Vital Signs: Vital Signs Temperature 97.7 F 08/05/21 08:31 Pulse Rate 85 08/05/21 08:31 Respiratory Rate 18 08/05/21 08:31 Blood Pressure 154/70 H 08/05/21 08:31 Pulse Oximetry 96 08/05/21 08:31 Const General: cooperative, comfortable, well developed and well groomed [facility] Head: normal to inspection and normocephalic Face and sinus: normal facial exam Mouth: oral mucosae normal Eyes Pupils: PERRL EOM: EOM intact bilaterally Neck Neck: no meningeal signs and tender (Left-sided paraspinal posterior) Resp Effort & Inspection: normal respiratory effort Auscultation: clear to auscultation bilaterally Cardio Rate: regular rate Rhythm: regular rhythm GI Inspection: normal to inspection Back/Spine/Pelvis Cervical Spine: cervical muscular tenderness (Left side) and No cervical spinal tenderness Skin General: no rashes or lesions noted Neuro General: patient alert, patient awake, patient oriented x3 and moves all extremities Cranial Nerves: CN's II-XI intact bilaterally Cognition: normal cognition Speech: speech normal Gait: normal gait Sensory Exam: no sensory deficits noted Extrem General: normal to inspection and capillary refill normal Psych Appearance: grossly normal and well kempt Course Orders Ordered: ED Orders 08/05/21 08:47 Basic Metabolic Panel Stat Complete Blood Count AUTO DIFF Stat Partial Thromboplastin Time Stat Prothrombin Time INR Stat Discontinued Medications Acetaminophen (Acetaminophen 325 Mg Tablet) 650 mg PO NOW ONE Stop: 08/05/21 08:38 Last Admin: 08/05/21 09:00 Dose: 650 mg Documented by: MARTHA Diphenhydramine HCl (Diphenhydramine 50 Mg/Ml Vial) 25 mg IV NOW ONE Stop: 08/05/21 08:38 Last Admin: 08/05/21 08:54 Dose: 25 mg Documented by: MARTHA Hydromorphone HCl (Hydromorphone 1 Mg Inj) 1 mg IV NOW ONE Stop: 08/05/21 10:19 Last Admin: 08/05/21 10:33 Dose: 1 mg Documented by: GET Sodium Chloride (Normal Saline 0.9%) 1,000 mls @ 1,000 mls/hr IV BOLUS ONE Stop: 08/05/21 09:36 Last Infusion: 08/05/21 09:57 Dose: 0 mls/hr Documented by: Admin: 08/05/21 08:54 Dose: 1,000 mls/hr Documented by: MARTHA Metoclopramide HCl (Metoclopramide 10 Mg/2 Ml Inj) 10 mg IV NOW ONE Stop: 08/05/21 08:38 Last Admin: 08/05/21 08:54 Dose: 10 mg Documented by: MARTHA Vital Signs Vital signs: Vital Signs - 8 hr 08/05/21 08:31 08/05/21 08:47 08/05/21 09:00 Temperature 97.7 F Pulse Rate 85 100 H 92 H Respiratory Rate 18 18 18 Blood Pressure 154/70 H Pulse Oximetry 96 94 97 08/05/21 09:01 08/05/21 09:30 08/05/21 09:31 Temperature Pulse Rate 90 85 85 Respiratory Rate 18 19 18 Blood Pressure 160/76 H 109/55 L Pulse Oximetry 96 97 98 08/05/21 10:00 08/05/21 10:30 08/05/21 11:00 Temperature Pulse Rate 81 82 83 Respiratory Rate 18 18 20 Blood Pressure 114/56 L 117/59 L 126/66 Pulse Oximetry 98 98 98 MDM - Headache Lab Data Attestation: I reviewed the patient's lab results. Result diagrams: 08/05/21 08:47 08/05/21 08:47 Labs: Lab Results 08/05/21 08/05/21 08/05/21 Range/Units 08:47 08:47 08:47 WBC 16.2 H (4.5-11.0) X10^3/uL RBC 4.96 (4.0-5.2) X10^6/uL Hgb 15.8 (12.0-16.0) g/dL Hct 46.5 H (36-46) % MCV 93.7 (80-100) fL MCH 31.9 (26-34) PG MCHC 34.0 (30-36) % RDW 15.1 H (11.6-14.8) % Plt Count 258 (150-400) X10^3/uL Neut % (Auto) 90.0 H (50-75) % Lymph % (Auto) 5.8 L (25-40) % Stephens % (Auto) 4.0 (3-14) % Eos % (Auto) 0.0 L (2-4) % Baso % (Auto) 0.2 (0-2) % Neut # (Auto) 38221 H (3380-2472) /uL Lymph # (Auto) 900 L (3997-2820) /uL Stephens # (Auto) 700 (0-900) /uL Eos # (Auto) 0 (0-450) /uL Baso # (Auto) 0 (0-100) /uL PT 11.3 (10.1-12.7) SECONDS INR 1.0 (0.9-1.3) APTT 33 (26.4-36.2) SECONDS Sodium 137 (137-145) mmol/L Potassium 3.6 (3.4-5.1) mmol/L Chloride 99 (98-107) mmol/L Carbon Dioxide 24 (22-32) mmol/L BUN 30 H (7-17) mg/dL Creatinine 1.27 H (0.52-1.04) mg/dL Estimated GFR 41.4 L (>60) mL/min BUN/Creatinine Ratio 23.6 H (6-22) Glucose 286 H (80-110) mg/dL Calcium 9.8 (8.4-10.2) mg/dL [facility] Narrative Medical decision making narrative: Patient had a complete resolution of symptoms after the Dilaudid. The typical treatment for migraine headaches did not seem to help her symptoms. I have low suspicion for meningitis. Low suspicion for hematoma or abscess since her procedure was test done yesterday. She does have a slight leukocytosis but she had a procedure yesterday and also had steroid inj ections. Also considered post spinal headache however her presentation today is not 100% consistent with that. Her symptoms are actually worse when she lays down and somewhat better when she stands up. She also has somewhat reproducible symptoms with touching the posterior left side of her neck. This very well could be musculoskeletal. I feel patient could be safely discharged home. We did discuss strict return precautions and follow-up instructions. She was instructed to continue to follow all of the postprocedure instructions provided to her. She expressed understanding and agreement. Discharge Plan Departure Patient Disposition: Home Clinical Impression: Headache Instructions: DI for Headache Activity Restrictions/Additional Instructions: Continue to follow all of the postprocedure instructions given to you by the operative provider. Contact your primary doctor for a follow-up. Return to the emergency department for any new or worsening symptoms Prescriptions: No Action aspirin 81 mg Tablet,Chewable 81 mg PO QAM RF: 0 ondansetron 4 mg tablet,disintegrating 4 mg PO Q8H PRN (Reason: nausea and vomiting) Qty: 10 RF: 0 hydrochlorothiazide 25 mg Tablet 25 mg PO DAILY RF: 0 furosemide 20 mg Tablet 10 mg PO QAM RF: 0 multivitamin Tablet 1 tab PO DAILY Qty: 0 RF: 0 atenolol 25 mg Tablet 25 mg PO DAILY RF: 0 levothyroxine [Synthroid] 150 mcg Tablet 150 mcg PO DAILY RF: 0 ezetimibe 10 mg Tablet 10 mg PO DAILY RF: 0 omega-3 fatty acids-vitamin E 1,000 mg Capsule 1 cap PO DAILY RF: 0 potassium chloride 10 mEq capsule, extended release 20 meq PO DAILY RF: 0 cholecalciferol (vitamin D3) 50 mcg (2,000 unit) capsule 50 mcg PO DAILY RF: 0 Eliquis 5 mg tablet 5 mg PO BID RF: 0 Referrals: Isaak Vasquez DO [Primary Care Provider] -
[2021-08-05] MEDS: ACETAMINOPHEN 325 MG TABLET 650 MG PO (09:00)
[2021-08-05 09:01] LABS: Prothrombin Time 11.3 SECONDS (10.1-12.7)
[2021-08-05 09:04] LABS: PTT Partial Thromboplastin Tim 33 SECONDS (26.4-36.2)
[2021-08-05 09:05] LABS: BUN Creatinine Ratio 23.6 (6-22); Blood Urea Nitrogen 30 mg/dL (7-17); Calcium 9.8 mg/dL (8.4-10.2); Carbon Dioxide 24 mmol/L (22-32); Chloride 99 mmol/L (98-107); Estimated Glomerular Filt Rate 41.4 mL/min (>60); Glucose 286 mg/dL (80-110); Potassium 3.6 mmol/L (3.4-5.1); Sodium 137 mmol/L (137-145)
[2021-08-05 09:06] LABS: HEMOLYSIS 56 (0-50)
[2021-08-05] MEDS: HYDROMORPHONE 1 MG INJ IV (10:33)
== END 2021-08-05 12:04 | disposition home or self-care (01) ==
PROVIDERS: Emergency Provider Emergency Medicine; PCP Family Medicine
DX: R51.9 Headache, unspecified (principal)
CPT/HCPCS: 36415; 80048; 85025; 85610; 85730; 96361; 96374; 96375; 99284; J1170; J1200; J2765

== ENCOUNTER 2021-08-09 11:46 | Emergency (ER) | payer MEDICARE, OTHER, SELFPAY ==
[2021-06-25 17:33] VITALS: BMI 28.1
[2021-08-09 12:12] VITALS: BP 136/96; PULSE 75; RESP 20; TEMP 36; O2SAT 98; BMI 29.0
[2021-08-09 15:01] VITALS: BP 169/77; PULSE 68; O2SAT 99
== END 2021-08-09 16:30 | disposition left against medical advice (07) ==
PROVIDERS: Emergency Provider Emergency Medicine; PCP Family Medicine
DX: R30.0 Dysuria (principal)
CPT/HCPCS: 81003; 99281

== ENCOUNTER → 2021-11-16 13:35 | Outpatient (CLI) | payer MEDICARE, OTHER, SELFPAY ==
[2021-06-25 17:33] VITALS: BMI 28.1
[2021-11-16 14:56] LABS: COVID19 -Nasal RAPID Negative (Negative)
== END ==
PROVIDERS: PCP Family Medicine; Visit Provider Physical Medicine & Rehabilitation
DX: Z20.822 Contact with and (suspected) exposure to COVID-19 (principal)
CPT/HCPCS: 87635; C9803

== ENCOUNTER 2021-11-17 08:41 | Outpatient (CLI) | payer MEDICARE, OTHER, SELFPAY ==
[2021-06-25 17:33] VITALS: BMI 28.1
[2021-11-17] VITALS (9 sets, daily range): BP systolic 110–139; BP diastolic 58–75; PULSE 69–85; RESP 15–20; TEMP 36.7; O2SAT 96–100
--- NOTE | 2021-11-17 08:45 | DI.RAD.S_ITS ---
PROCEDURE: PAIN L/SI FACET INJ/BLK 1STL INDICATIONS: SPONDYLOSIS COMPARISON: [facility], , PAIN L/S TRANSFORAMINAL INJECT, 08/04/2021, 10:53. FINDINGS: Fluoroscopic spot filming was performed to verify placement of spinal needles on the right at the L2-L3, L3-L4, and L4-L5 levels, as labeled on the films. Appropriate location of the needle tips was confirmed by injection of iodinated contrast. IMPRESSION: Intraprocedural examination within normal limits. Dictated by: Justin Ivy M.D. on 11/17/2021 at 9:17 Approved by: Justin Ivy M.D. on 11/17/2021 at 9:17
[2021-11-17] MEDS: fentaNYL 100 MCG/2 ML INJ 50 MCG IV (09:48)
[2021-11-17] MEDS: IOPAMIDOL 15 ML VIAL 3 ML INJ (09:53)
[2021-11-17] MEDS: BUPIVACAINE 0.5% (PF) VIAL 30 ML (09:53)
[2021-11-17] MEDS: BETAMETHASONE 30 MG/5 ML MDV 12 MG INJ (09:53)
[2021-11-17] MEDS: MIDAZOLAM 5 MG/5 ML VIAL IV (09:55)
--- NOTE | 2021-11-17 10:04 | P.PCN_ITS ---
Date/Time/Diagnoses Date of procedure: 11/17/21 Time of procedure: 10:04 Pre-procedure diagnosis: 1. FACET ARTHROPATHY, 2. AXIAL LBP, 3. MULTILEVEL DDD This procedure is found to meet the Governor's proclamation 20-24.2 regarding non urgent procedures. This patient meets multiple criteria for the procedure including continuing or worsening of significant or severe pain, combined with further deterioration of the patient's condition or overall health as well as delay in treatment would be expected to result in less positive ultimate medical outcome. Therefore the decision to perform the procedure in an outpatient hospital setting is found to be in accordance with guidelines of the procl amation. Post-procedure diagnosis: same Procedure Notes Procedure: 1. FLUOROSCOPICALLY GUIDED CONTRAST CONTROLLED FACET JOINT INJECTIONS RIGHT L2/3, L3/4, L4/5 Indications: Jackie is referred by Dr. Vasquez for treatment of Axial LBP Physician: Kris Buck Total Fluoroscopy time (seconds): 7 Total sedation minutes: 11 Complications: none Procedure in detail & Post-procedure care: FINDINGS Multilevel Facet Arthropathy with Clinically significant axial LBP DESCRIPTION OF PROCEDURE Fluoroscopically guided, contrast-controlled right L2/3, L3/4, L4/5 facet joint injections. Following review of allergy and review of potential side effects and complications, including, but not necessarily limited to, infection, allergic reaction, local tissue breakdown, stroke, temporary or permanent nerve injury, paralysis, and possible , the patient indicated that the patient understood and agreed to proceed. An informed consent document was signed by the patient, witnessed by a nurse, and placed in the patient's chart. Additionally, other treatment options including medications, modalities, and physical therapy were reviewed with the patient. After review of previous anaesthesic history and IV conscious sedation the patient was deemed safe to proceed with today?s procedure with IV conscious sedation as ASA class II designation. Safety time-out was performed to confirm patient ID, procedure to be performed and site of procedure. IV sedation was accomplished with a combination of 3mg of Versed and 50mcg of Fentanyl administered by the RN after DO order, titrated to patient comfort during the course of the procedure while the patient remained responsive to all verbal commands. In the prone position, following sterile prep and drape of the lumbar region, the posterior aspect of the right L2/3, L3/4, L4/5 facet joints were identified fluoroscopically. The skin was anesthetized via a 25-gauge 1.5-inch needle with 1% lidocaine solution into the corresponding facet joints. At this point, a 22- gauge 3.5-inch spinal needle was atraumatically introduced and advanced under fluoroscopic guidance into the corresponding facet joints. Following negative aspiration, injections of approximately 0.2-cc of Isovue 200 confirmed interarticular placement without vascular uptake. Radiological data, including multiple fluoroscopic views of the lumbosacral spine, reveal a spinal needle at the right L2/3, L3/4, L4/5 facet joints. Subsequent views show flow of contrast material both superiorly and inferiorly within the joint space without vascular or intrathecal uptake. At this point, a total of 0.5cc including a mixture of 0.25 cc Marcaine and 0.25cc betamethasone was injected without complication into each of the corresponding facet joints. The patient tolerated the procedure well without signs or symptoms of complications prior to transfer to the recovery area for further monitoring. The patient was then transferred to the recovery area where they were observed for an appropriate period of time after the injection. The patient reported a VAS score of 7 prior to the procedure and a post-procedure VAS of 0. POST OP INSTRUCTIONS The patient was provided a Pain Log to continue to record their response to the target-specific procedure prior to follow-up visit with their referring physician. Additionally, specific post-injection care instructions and a contact number to our office were provided if concerns arise regarding possible complications associated with the procedure are suspected.
== END 2021-11-17 10:26 | disposition home or self-care (01) ==
LOC: RAD 08:43
PROVIDERS: PCP Family Medicine; Referring Provider Physical Medicine & Rehabilitation; Visit Provider Physical Medicine & Rehabilitation
DX: M47.816 Spondylosis without myelopathy or radiculopathy, lumbar region (principal); M51.26 Other intervertebral disc displacement, lumbar region
CPT/HCPCS: 64493; 64494; 64495; 99152; J0702; J2250; J3010

== ENCOUNTER 2021-11-18 09:56 | Emergency (ER) | payer MEDICARE, OTHER, SELFPAY ==
[2021-06-25 17:33] VITALS: BMI 28.1
[2021-11-18] VITALS (8 sets, daily range): BP systolic 141–152; BP diastolic 70–76; PULSE 86–94; RESP 16–23; TEMP 36.2–36.6; O2SAT 96–99; BMI 28.1
--- NOTE | 2021-11-18 11:21 | PC.NURSE ---
last jacinta a week ago do to the procedure.
--- NOTE | 2021-11-18 12:03 | ED_ITS ---
HPI - Headache <MARTINEZ Tinoco - Last Filed: 11/18/21 18:28> General Chief Complaint: Headache Stated Complaint: Migraine after epidural Time Seen by Provider: 11/18/21 09:59 Mode of arrival: Ambulatory History of Present Illness HPI Narrative: 71-year-old female with history of atrial fibrillation on Eliquis (currently held status post right lateral lumbar spine steroid injections yesterday) the who presents to the emergency department complaining of headache which began at with a gradual onset last night at 7:00 p.m. and has persisted through today. Patient states this happened 1 other time before, she was given 3 medications in the emergency department which did not help and then she had Dilaudid and it did help. She reports that she also received 1 L of IV fluid at that time as well which she thought was helpful. Patient denies any weakness, dizziness, nausea, vomiting, diarrhea, fever, altered mental status, facial asymmetry or any other symptoms other than headache. Patient states she does have a history of migraines but has not had 1 recently. She complains no back pain at this time only headache. Patient denies any numbness or tingling, increased pain at the injection site, swelling, or other. Related Data Home Medications Medication Instructions Recorded Confirmed aspirin 81 mg chewable tablet 81 mg PO QAM 07/26/20 11/11/21 atenolol 25 mg tablet 25 mg PO DAILY 06/25/21 11/11/21 ezetimibe 10 mg tablet 10 mg PO DAILY 06/25/21 11/11/21 levothyroxine 150 mcg tablet 150 mcg PO DAILY 06/25/21 11/11/21 (Synthroid) multivitamin 1 tab PO DAILY #0 06/25/21 11/11/21 omega-3 fatty acids-vitamin E 1 cap PO DAILY 06/25/21 11/11/21 1,000 mg capsule furosemide 20 mg tablet 10 mg PO QAM 07/09/21 11/11/21 hydrochlorothiazide 25 mg tablet 25 mg PO DAILY 07/09/21 11/11/21 apixaban 5 mg tablet (Eliquis) 5 mg PO BID 07/22/21 11/11/21 cholecalciferol (vitamin D3) 50 50 mcg PO DAILY 07/22/21 11/11/21 mcg (2,000 unit) capsule potassium chloride 10 mEq 20 meq PO DAILY 10/20/21 02/09/22 capsule,extended release Previous Rx's Medication Instructions Recorded ondansetron 4 mg disintegrating 4 mg PO Q8H PRN #10 tab 06/24/21 tablet gabapentin 300 mg capsule 300 mg PO .COMPLEX #90 cap 09/10/21 diazepam 10 mg tablet (Valium) 10 mg PO ONCE #10 tab MDD 3 tabs 11/11/21 tramadol 50 mg tablet 50 mg PO TID PRN #30 tab 11/19/21 Allergies Allergy/AdvReac Type Severity Reaction Status Date / Time lisinopril Allergy Severe Anaphylaxis Verified 11/11/21 09:12 metformin AdvReac Vomiting Verified 11/11/21 09:12 Review of Systems <MARTINEZ Tinoco - Last Filed: 11/18/21 18:28> Review of Systems Narrative: General: denies fever, chills Head/Neck: endorses headache since 7:00 p.m. last night, denies neck pain, denies dizziness Eyes: denies visual changes, eye pain Cardio: denies chest pain, palpitations Respiratory: denies shortness of breath, cough GI: denies abdominal pain, nausea, vomiting, or diarrhea : denies dysuria, hematuria MSK: denies joint pain, muscle weakness Skin: denies rash, itching Neuro: denies numbness, tingling Patient History <MARTINEZ Tinoco - Last Filed: 11/18/21 18:28> Medical History Atrial fibrillation Breast cancer Chronic back pain Chronic pancreatitis Depression Facet arthropathy, lumbar Heart murmur HLD (hyperlipidemia) Hypertension Hypothyroidism Lumbar radiculopathy Migraine headache Nose fracture (~06/29/21) Tinnitus Surgical History History of colonoscopy History of hysterectomy Hx of breast surgery Hx of cholecystectomy Hx of oophorectomy Hx of tonsillectomy Family History Father Brain tumor Congestive heart failure Mother Hypertension Stroke Grandfather Stroke Social History household members: spouse Smoking Status: Former smoker alcohol intake: current Smoking Status: Former smoker alcohol intake frequency: a few times a week Alcohol type: wine Substance Use Type: does not use Exam <MARTINEZ Tinoco - Last Filed: 11/18/21 18:28> Narrative Exam Narrative: Independently reviewed vitals signs and nursing notes. General: Awake, alert, nontoxic, no cardiorespiratory distress Head/Neck: Atraumatic, neck full range of motion Eyes: EOMI, conjunctiva normal Nose: nares patent, no rhinorrhea Mouth/Throat: moist mucus membranes, posterior pharynx normal, no oral lesions Cardio: Regular rate and rhythm, no peripheral edema Respiratory: respirations unlabored without wheezing, stridor, or rales. No retractions. GI: Abdomen soft, nontender no CVA tenderness MSK: Moves all extremities, neurovascularly intact, 3 small round Band-Aids over right lateral lumbar spine where injections were, there is no crepitus, no surrounding erythema or edema patient denies any tenderness over this area with palpation Skin: Normal capillary refill, no rash Neuro: Normal speech and cognition, normal gait Initial Vital Signs Initial Vital Signs: Vital Signs Pulse Rate 87 11/18/21 10:11 Respiratory Rate 18 11/18/21 10:11 Blood Pressure 152/71 H 11/18/21 10:11 Pulse Oximetry 96 11/18/21 10:11 <Raghav Griffin DO - Last Filed: 11/22/21 18:42> Initial Vital Signs Initial Vital Signs: Vital Signs Pulse Rate 87 11/18/21 10:11 Respiratory Rate 18 11/18/21 10:11 Blood Pressure 152/71 H 11/18/21 10:11 Pulse Oximetry 96 11/18/21 10:11 Course <MARTINEZ Tinoco - Last Filed: 11/18/21 18:28> Orders Ordered: Discontinued Medications Acetaminophen (Acetaminophen 325 Mg Tablet) 650 mg PO NOW ONE Stop: 11/18/21 12:54 Last Admin: 11/18/21 13:06 Dose: 650 mg Documented by: LULI Famotidine (Famotidine 20 Mg/2 Ml Vial) 20 mg IV NOW GILA Last Admin: 11/18/21 13:06 Dose: 20 mg Documented by: LULI Hydromorphone HCl (Hydromorphone 0.5 Mg Inj) 0.5 mg IV NOW ONE Stop: 11/18/21 12:12 Last Admin: 11/18/21 13:05 Dose: 0.5 mg Documented by: LULI Hydromorphone HCl (Hydromorphone 0.5 Mg Inj) 0.5 mg IV NOW ONE Stop: 11/18/21 12:54 Last Admin: 11/18/21 13:45 Dose: 0.5 mg Documented by: LULI Sodium Chloride (Normal Saline 0.9%) 1,000 mls @ 1,000 mls/hr IV BOLUS ONE Stop: 11/18/21 13:10 Last Infusion: 11/18/21 14:16 Dose: 0 mls/hr Documented by: Admin: 11/18/21 13:05 Dose: 1,000 mls/hr Documented by: LULI Ketorolac Tromethamine (Ketorolac 30 Mg/Ml Vial) 15 mg IV NOW ONE Stop: 11/18/21 12:12 Last Admin: 11/18/21 13:05 Dose: 15 mg Documented by: LULI Oxycodone/Acetaminophen (Oxycodone/Acetaminophen 5/325 Tablet) 1 tab PO NOW ONE Stop: 11/18/21 12:54 Last Admin: 11/18/21 14:17 Dose: 1 tab Documented by: LULI Vital Signs Vital signs: Vital Signs - 8 hr 11/18/21 11:19 11/18/21 11:23 11/18/21 12:37 Temperature 97.1 F L 97.9 F Pulse Rate 94 H 86 86 Respiratory Rate 18 18 23 Blood Pressure 141/74 H Pulse Oximetry 97 97 99 11/18/21 13:08 11/18/21 13:09 11/18/21 13:30 Temperature Pulse Rate 86 87 92 H Respiratory Rate Blood Pressure 146/70 H 144/76 H Pulse Oximetry 99 99 98 11/18/21 14:00 Temperature Pulse Rate 94 H Respiratory Rate 16 Blood Pressure 145/70 H Pulse Oximetry 98 <Raghav Griffin DO - Last Filed: 11/22/21 18:42> Orders Ordered: Discontinued Medications Acetaminophen (Acetaminophen 325 Mg Tablet) 650 mg PO NOW ONE Stop: 11/18/21 12:54 Last Admin: 11/18/21 13:06 Dose: 650 mg Documented by: LULI Famotidine (Famotidine 20 Mg/2 Ml Vial) 20 mg IV NOW GILA Last Admin: 11/18/21 13:06 Dose: 20 mg Documented by: LULI Hydromorphone HCl (Hydromorphone 0.5 Mg Inj) 0.5 mg IV NOW ONE Stop: 11/18/21 12:12 Last Admin: 11/18/21 13:05 Dose: 0.5 mg Documented by: LULI Hydromorphone HCl (Hydromorphone 0.5 Mg Inj) 0.5 mg IV NOW ONE Stop: 11/18/21 12:54 Last Admin: 11/18/21 13:45 Dose: 0.5 mg Documented by: LULI Sodium Chloride (Normal Saline 0.9%) 1,000 mls @ 1,000 mls/hr IV BOLUS ONE Stop: 11/18/21 13:10 Last Infusion: 11/18/21 14:16 Dose: 0 mls/hr Documented by: Admin: 11/18/21 13:05 Dose: 1,000 mls/hr Documented by: LULI Ketorolac Tromethamine (Ketorolac 30 Mg/Ml Vial) 15 mg IV NOW ONE Stop: 11/18/21 12:12 Last Admin: 11/18/21 13:05 Dose: 15 mg Documented by: LULI Oxycodone/Acetaminophen (Oxycodone/Acetaminophen 5/325 Tablet) 1 tab PO NOW ONE Stop: 11/18/21 12:54 Last Admin: 11/18/21 14:17 Dose: 1 tab Documented by: LULI Vital Signs Vital signs: Vital Signs - 8 hr 11/18/21 11:19 11/18/21 11:23 11/18/21 12:37 Temperature 97.1 F L 97.9 F Pulse Rate 94 H 86 86 Respiratory Rate 18 18 23 Blood Pressure 141/74 H Pulse Oximetry 97 97 99 11/18/21 13:08 11/18/21 13:09 11/18/21 13:30 Temperature Pulse Rate 86 87 92 H Respiratory Rate Blood Pressure 146/70 H 144/76 H Pulse Oximetry 99 99 98 11/18/21 14:00 Temperature Pulse Rate 94 H Respiratory Rate 16 Blood Pressure 145/70 H Pulse Oximetry 98 MDM - Headache <Allie Vargas, [facility] - Last Filed: 11/18/21 18:28> [facility] Narrative Medical decision making narrative: 71-year-old female presents to the emergency department with complaint of headache since 7:00 p.m. last night after receiving steroid injections to her right lumbar spine yesterday. Patient states this has happened once before, she denies any dizziness, weakness, altered mentation, syncope, fever or other symptom. She was given 1 L of normal saline, Tylenol, Dilaudid, famotidine, Percocet and Toradol with improvement in her symptoms. Patient states that she is ready to go home, she did not have any nystagmus, weakness, dizziness, orthostatic hypotension or other problem. Patient understands to follow-up with her primary care provider tomorrow, and was given strict return precautions for any weakness, return of headache, or other concerning symptoms. Patient is appropriate and amenable to discharge home. Vital signs are stable on repeat examination is unremarkable. Patient has been informed of results. Patient has been given strict return to ER precautions for any new or worsening symptoms. Patient understands to follow up closely with outpatient providers as instructed. Patient understands plan and agrees to discharge home. All questions and concerns answered at this time. Discharge Plan Departure Patient Disposition: Home Clinical Impression: Migraine Instructions: DI for Migraine Activity Restrictions/Additional Instructions: *You have been diagnosed with an intractable migraine. I'm sorry that this happened, please let your doctor know about this. It does not appear dangerous since it has improved. If this returns, or if you have any weakness in your lower extremities, please come back to the emergency department for advanced imaging and a deeper evaluation of the cause. You may take 1000 mg of Tylenol every 6 hours but do not take over that amount. Please do not taking ibuprofen today, I hope you feel better soon, please go home and rest. *What to do: *Please continue to take your regular medications as directed. [ ] New medication prescriptions sent to your pharmacy: [ ] [ ] New medication written as a paper prescription [ x] No new medications given *Please follow up with your primary care provider in 2-3 days, call for an appointment. Let them know you were seen in the Emergency Department and that we ask that you be seen in follow up. We will electronically transmit a record of today's note if your PCP is in our system *If you do not have a primary care provider please contact the [facility] Resource line at [phone]. They will ask some questions about your medical history and help get you set up with a doctor in the community. *Return to Emergency Department if you should have any new, worsening or concerning symptoms, such as [fever greater than 101F, chills, worsening pain, persistent vomiting or other bothersome symptoms] Prescriptions: No Action gabapentin 300 mg capsule 300 mg PO .COMPLEX Qty: 90 2RF Rx Instructions: 1-2 PO Tid to begin at HS and titrate to pain relief tramadol 50 mg tablet 50 mg PO TID PRN (Reason: pain) Qty: 30 1RF aspirin 81 mg Tablet,Chewable 81 mg PO QAM 0RF ondansetron 4 mg tablet,disintegrating 4 mg PO Q8H PRN (Reason: nausea and vomiting) Qty: 10 0RF hydrochlorothiazide 25 mg Tablet 25 mg PO DAILY 0RF furosemide 20 mg Tablet 10 mg PO QAM 0RF multivitamin Tablet 1 tab PO DAILY Qty: 0 0RF atenolol 25 mg Tablet 25 mg PO DAILY 0RF levothyroxine [Synthroid] 150 mcg Tablet 150 mcg PO DAILY 0RF ezetimibe 10 mg Tablet 10 mg PO DAILY 0RF omega-3 fatty acids-vitamin E 1,000 mg Capsule 1 cap PO DAILY 0RF diazepam [Valium] 10 mg tablet 10 mg PO ONCE MDD 3 tabs Qty: 10 0RF potassium chloride 10 mEq capsule, extended release 20 meq PO DAILY 0RF cholecalciferol (vitamin D3) 50 mcg (2,000 unit) capsule 50 mcg PO DAILY 0RF Eliquis 5 mg tablet 5 mg PO BID 0RF Referrals: Isaak Vasquez DO [Primary Care Provider] - <Raghav Griffin DO - Last Filed: 11/22/21 18:42> Cosign ED Attending Cosapoorvaature Attestation: I was immediately available in the department for consultation. This documentation has been reviewed and I agree with assessment and plan. Supervised by Raghav Griffin DO
[2021-11-18] MEDS: KETOROLAC 30 MG/ML VIAL 15 MG IV (13:05)
[2021-11-18] MEDS: HYDROMORPHONE 0.5 MG INJ IV ×2 (13:05→13:45)
[2021-11-18] MEDS: SODIUM CHLORIDE 0.9% 1,000 ML 1000 ML IV (13:05)
[2021-11-18] MEDS: ACETAMINOPHEN 325 MG TABLET 650 MG PO (13:06)
[2021-11-18] MEDS: FAMOTIDINE 20 MG/2 ML VIAL IV (13:06)
[2021-11-18] MEDS: OXYCODONE/ACETAMINOPHEN 5/325 TABLET 1 TAB PO (14:17)
== END 2021-11-18 14:26 | disposition home or self-care (01) ==
PROVIDERS: Emergency Provider Nurse Practitioner Critical Care Medicine; PCP Family Medicine
DX: G43.909 Migraine, unspecified, not intractable, without status migrainosus (principal)
CPT/HCPCS: 96361; 96374; 96375; 96376; 99284; J1170; J1885

== ENCOUNTER 2021-12-10 09:31 | Emergency (ER) | payer MEDICARE, OTHER, SELFPAY ==
[2021-06-25 17:33] VITALS: BMI 28.1
[2021-12-10] VITALS (22 sets, daily range): BP systolic 110–149; BP diastolic 56–93; PULSE 70–93; RESP 9–29; TEMP 36.7; O2SAT 90–100; BMI 28.1
--- NOTE | 2021-12-10 10:20 | DI.RAD.S_ITS ---
PROCEDURE: XR CHEST 1V INDICATIONS: chest pain TECHNIQUE: One view of the chest was acquired. COMPARISON: [facility], CR, XR CHEST 2V, 07/25/2020, 16:28. FINDINGS: Surgical changes and devices: None. Lungs and pleura: Lungs are clear. No pleural effusions or pneumothorax. Mediastinum: Mediastinal contours appear normal. Heart size is normal. The aorta is tortuous. Bones and chest wall: No suspicious bony lesions. Overlying soft tissues appear unremarkable. IMPRESSION: No acute cardiopulmonary abnormality. Dictated by: Lee Lazo M.D. on 12/10/2021 at 10:59 Approved by: Lee Lazo M.D. on 12/10/2021 at 11:00
[2021-12-10 11:30] LABS: Add Manual Diff / Slide Review NO; Basophils Absolute Auto 100 /uL (0-100); Eosinophils Absolute Auto 200 /uL (0-450); Eosinophils Percent Auto 1.6 % (2-4); Hemoglobin 15.1 g/dL (12.0-16.0); Lymphocytes Absolute Auto 2800 /uL (1100-4500); Lymphocytes Percent Auto 22.8 % (25-40); Mean Corpuscular HGB Conc 32.8 % (30-36); Mean Corpuscular Hemoglobin 30.2 PG (26-34); Mean Corpuscular Volume 92.2 fL (80-100); Monocytes Absolute Auto 700 /uL (0-900); Monocytes Percent Auto 5.5 % (3-14); Neutrophils Absolute Auto 8500 /uL (1500-7000); Neutrophils Percent Auto 69.1 % (50-75); Platelet Count 380 X10^3/uL (150-400); Red Blood Cell Count 4.99 X10^6/uL (4.0-5.2); Red Cell Distribution Width 14.1 % (11.6-14.8); White Blood Cell Count 12.2 X10^3/uL (4.5-11.0)
[2021-12-10 11:38] LABS: Alanine Aminotransferase 44 IU/L (<35); Albumin 4.8 g/dL (3.5-5.0); Albumin Globulin Ratio 1.3 (1.0-2.8); Alkaline Phosphatase 115 U/L (38-126); Aspartate Aminotransferase 48 IU/L (14-36); BUN Creatinine Ratio 23.4 (6-22); Bilirubin Total 0.7 mg/dL (0.2-1.3); Blood Urea Nitrogen 47 mg/dL (7-17); Calcium 10.7 mg/dL (8.4-10.2); Carbon Dioxide 34 mmol/L (22-32); Chloride 89 mmol/L (98-107); Creatine Kinase 80 U/L (30-135); Estimated Glomerular Filt Rate 24.3 mL/min (>60); Globulin 3.6 g/dL (1.7-4.1); Glucose 127 mg/dL (80-110); HEMOLYSIS < 15 (0-50); Lipase 131 U/L (23-300); Magnesium 1.6 mg/dL (1.6-2.3); Potassium 3.5 mmol/L (3.4-5.1); Sodium 131 mmol/L (137-145); Total Protein 8.4 g/dL (6.3-8.2)
--- NOTE | 2021-12-10 11:38 | ED.NAVMDI ---
HPI - Nausea/Vomiting/Diarrhea General Chief complaint: Nausea/Vomiting/Diarrhea Stated complaint: sick x3 days,cant eat,weak Time Seen by Provider: 12/10/21 11:01 Source: patient Mode of arrival: Wheelchair History of Present Illness HPI Narrative: Patient is a 71-year-old female who has been feeling weak and fatigued for about 3 weeks. She says she has been nauseous and she has been unable to keep anything down really. No significant vomiting or diarrhea. She has no abdominal pain. She had was actually seen evaluated [facility] twice once on December 02 and on December 03. During 1 of the visits she was found have a UTI. She was started on Bactrim head then changed to Cipro she finished her whole course of antibiotics. She says she still just does not feel quite right. At some point in the last week she fell and hit her head. No loss of consciousness she does have mild contusion around her eye but is able to open her eye completely. She has generalized weakness but no focal deficits. She has not had fever or sweats. She just does not feel well. She has significant decreased appetite and has lost about 20 lb in the last 3 weeks Related Data Home Medications Medication Instructions Recorded Confirmed aspirin 81 mg chewable tablet 81 mg PO QAM 07/26/20 11/11/21 atenolol 25 mg tablet 25 mg PO DAILY 06/25/21 11/11/21 ezetimibe 10 mg tablet 10 mg PO DAILY 06/25/21 11/11/21 levothyroxine 150 mcg tablet 150 mcg PO DAILY 06/25/21 11/11/21 (Synthroid) multivitamin 1 tab PO DAILY #0 06/25/21 11/11/21 omega-3 fatty acids-vitamin E 1 cap PO DAILY 06/25/21 11/11/21 1,000 mg capsule furosemide 20 mg tablet 10 mg PO QAM 07/09/21 11/11/21 hydrochlorothiazide 25 mg tablet 25 mg PO DAILY 07/09/21 11/11/21 apixaban 5 mg tablet (Eliquis) 5 mg PO BID 07/22/21 11/11/21 cholecalciferol (vitamin D3) 50 50 mcg PO DAILY 07/22/21 11/11/21 mcg (2,000 unit) capsule potassium chloride 10 mEq 20 meq PO DAILY 07/22/21 11/11/21 capsule,extended release Previous Rx's Medication Instructions Recorded ondansetron 4 mg disintegrating 4 mg PO Q8H PRN #10 tab 06/24/21 tablet gabapentin 300 mg capsule 300 mg PO .COMPLEX #90 cap 09/10/21 diazepam 10 mg tablet (Valium) 10 mg PO ONCE #10 tab MDD 3 tabs 11/11/21 tramadol 50 mg tablet 50 mg PO TID PRN #30 tab 11/19/21 ondansetron 4 mg disintegrating 4 mg PO Q8H PRN #10 tab 12/10/21 tablet Allergies Allergy/AdvReac Type Severity Reaction Status Date / Time lisinopril Allergy Severe Anaphylaxis Verified 12/10/21 09:53 metformin AdvReac Vomiting Verified 12/10/21 09:53 Review of Systems Review of Systems ROS Unobtainable: All systems reviewed & are unremarkable except as noted in HPI and below Constitutional Constitutional: Reports anorexia, Reports fatigue, Denies headache(s) and Reports poor appetite ENT Ears, Nose, Mouth, and Throat: Denies headache(s) and Denies sore throat Cardiovascular Cardiovascular: Denies chest pain and Denies irregular heart rhythm Respiratory Respiratory: Denies chest congestion and Denies cough Gastrointestinal Gastrointestinal: Denies abdominal pain, Reports nausea and Denies vomiting Genitourinary Genitourinary: Denies urinary incontinence Musculoskeletal Musculoskeletal: Denies back pain Integumentary/Breasts Skin/Breast: Denies rash and Denies skin pain Neurologic Neurologic: Denies headache(s) Endocrine Endocrine: Reports fatigue Patient History Medical History Atrial fibrillation Breast cancer Chronic back pain Chronic pancreatitis Depression Facet arthropathy, lumbar Heart murmur HLD (hyperlipidemia) Hypertension Hypothyroidism Lumbar radiculopathy Migraine headache Nose fracture (~06/29/21) Tinnitus Surgical History History of colonoscopy History of hysterectomy Hx of breast surgery Hx of cholecystectomy Hx of oophorectomy Hx of tonsillectomy Family History Father Brain tumor Congestive heart failure Mother Hypertension Stroke Grandfather Stroke Social History household members: spouse Smoking Status: Former smoker alcohol intake: current Smoking Status: Former smoker alcohol intake frequency: a few times a week Alcohol type: wine Substance Use Type: does not use Exam Initial Vital Signs Initial Vital Signs: Vital Signs Temperature 98.0 F 12/10/21 09:52 Pulse Rate 78 12/10/21 09:52 Respiratory Rate 12 12/10/21 09:52 Blood Pressure 123/71 12/10/21 09:52 Pulse Oximetry 99 12/10/21 09:52 GENERAL: Alert 71-year-old female appears to feel HEENT: Head atraumatic,EOMI, pupils reactive, face symmetric, moist mucous membranes CARDIOVASCULAR: Regular rate and rhythm without murmurs, rubs or gallops. RESPIRATORY: Breath sounds equal bilaterally, no wheezes rales or rhonchi. ABDOMEN: Soft, nontender. Normoactive bowel sounds all 4 quadrants. No guarding or rebound. EXTREMITIES: Normal range of motion, no clubbing or edema. Neurovascularly intact NEUROLOGICAL: Alert and oriented x4.Normal gait and speech. 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 Course Orders Ordered: ED Orders 12/10/21 10:20 XR chest 1V Stat EKG-12 Lead Stat 12/10/21 11:10 Complete Blood Count AUTO DIFF Stat Comprehensive Metabolic Panel Stat Lactate (Lactic Acid) Stat Lipase Stat Magnesium Stat Procalcitonin Stat Troponin & CK Cardiac Panel Stat 12/10/21 12:31 CT abdomen pelvis wo con Stat 12/10/21 12:55 CT head/brain wo con Stat 12/10/21 14:45 Urinalysis and Microscopic Stat Urine Culture Stat Discontinued Medications Sodium Chloride (Normal Saline 0.9%) 1,000 mls @ 1,000 mls/hr IV BOLUS ONE Stop: 12/10/21 12:51 Last Infusion: 12/10/21 14:14 Dose: 0 mls/hr Documented by: Admin: 12/10/21 12:21 Dose: 1,000 mls/hr Documented by: MARTHA Ondansetron HCl (Ondansetron 4 Mg/2 Ml Inj) 4 mg IV NOW ONE Stop: 12/10/21 13:16 Last Admin: 12/10/21 13:34 Dose: 4 mg Documented by: ALEK Vital Signs Vital signs: Vital Signs - 8 hr 12/10/21 11:17 12/10/21 11:30 12/10/21 11:58 Pulse Rate 73 70 71 Pulse Rate [Orthostatic Lying] Pulse Rate [Orthostatic Sitting] Pulse Rate [Orthostatic Standing] Respiratory Rate 18 16 29 H Blood Pressure 134/66 133/63 118/56 L Blood Pressure [Orthostatic Lying] Blood Pressure [Orthostatic Sitting] Blood Pressure [Orthostatic Standing] Pulse Oximetry 100 100 99 12/10/21 11:59 12/10/21 12:00 12/10/21 12:01 Pulse Rate 79 83 91 H Pulse Rate [Orthostatic Lying] Pulse Rate [Orthostatic Sitting] Pulse Rate [Orthostatic Standing] Respiratory Rate 17 18 21 Blood Pressure 118/58 L 110/93 H Blood Pressure [Orthostatic Lying] Blood Pressure [Orthostatic Sitting] Blood Pressure [Orthostatic Standing] Pulse Oximetry 99 99 97 12/10/21 12:03 12/10/21 12:05 12/10/21 12:19 Pulse Rate 93 H 88 Pulse Rate [Orthostatic Lying] 71 Pulse Rate [Orthostatic Sitting] 79 Pulse Rate [Orthostatic Standing] 84 Respiratory Rate 27 H 16 Blood Pressure 114/57 L 141/74 H Blood Pressure [Orthostatic Lying] 118/56 L Blood Pressure [Orthostatic Sitting] 118/58 L Blood Pressure [Orthostatic Standing] 114/57 L Pulse Oximetry 99 98 12/10/21 12:30 12/10/21 13:03 12/10/21 13:04 Pulse Rate 78 74 76 Pulse Rate [Orthostatic Lying] Pulse Rate [Orthostatic Sitting] Pulse Rate [Orthostatic Standing] Respiratory Rate 17 23 14 Blood Pressure 135/66 149/67 H Blood Pressure [Orthostatic Lying] Blood Pressure [Orthostatic Sitting] Blood Pressure [Orthostatic Standing] Pulse Oximetry 100 98 100 12/10/21 13:30 12/10/21 14:00 12/10/21 14:32 Pulse Rate 73 71 90 Pulse Rate [Orthostatic Lying] Pulse Rate [Orthostatic Sitting] Pulse Rate [Orthostatic Standing] Respiratory Rate 16 16 Blood Pressure 122/64 125/62 Blood Pressure [Orthostatic Lying] Blood Pressure [Orthostatic Sitting] Blood Pressure [Orthostatic Standing] Pulse Oximetry 99 97 90 L 12/10/21 15:00 03/10/22 15:03 12/10/21 15:04 Pulse Rate 77 79 Pulse Rate [Orthostatic Lying] Pulse Rate [Orthostatic Sitting] Pulse Rate [Orthostatic Standing] Respiratory Rate 17 15 Blood Pressure 120/64 Blood Pressure [Orthostatic Lying] Blood Pressure [Orthostatic Sitting] Blood Pressure [Orthostatic Standing] Pulse Oximetry 98 99 MDM - Nausea/Vomiting/Diarrhea Lab Data Result diagrams: 12/10/21 11:10 12/10/21 11:10 Labs: Lab Results 12/10/21 12/10/21 12/10/21 Range/Units 11:10 11:10 11:10 WBC 12.2 H (4.5-11.0) X10^3/uL RBC 4.99 (4.0-5.2) X10^6/uL Hgb 15.1 (12.0-16.0) g/dL Hct 46.0 (36-46) % MCV 92.2 (80-100) fL MCH 30.2 (26-34) PG MCHC 32.8 (30-36) % RDW 14.1 (11.6-14.8) % Plt Count 380 (150-400) X10^3/uL Neut % (Auto) 69.1 (50-75) % Lymph % (Auto) 22.8 L (25-40) % Harlan % (Auto) 5.5 (3-14) % Eos % (Auto) 1.6 L (2-4) % Baso % (Auto) 1.0 (0-2) % Neut # (Auto) 8500 H (8701-4104) /uL Lymph # (Auto) 2800 (3294-8733) /uL Harlan # (Auto) 700 (0-900) /uL Eos # (Auto) 200 (0-450) /uL Baso # (Auto) 100 (0-100) /uL Sodium 131 L (137-145) mmol/L Potassium 3.5 (3.4-5.1) mmol/L Chloride 89 L (98-107) mmol/L Carbon Dioxide 34 H (22-32) mmol/L BUN 47 H (7-17) mg/dL Creatinine 2.01 H (0.52-1.04) mg/dL Estimated GFR 24.3 L (>60) mL/min BUN/Creatinine Ratio 23.4 H (6-22) Glucose 127 H (80-110) mg/dL Lactate 1.6 (0.7-2.1) mmol/L Calcium 10.7 H (8.4-10.2) mg/dL Magnesium 1.6 (1.6-2.3) mg/dL Total Bilirubin 0.7 (0.2-1.3) mg/dL AST 48 H (14-36) IU/L ALT 44 H (<35) IU/L Alkaline Phosphatase 115 (38-126) U/L Total Creatine Kinase 80 (30-135) U/L CK-MB (CK-2) TNP CK-MB (CK-2) Rel Index TNP Troponin I < 0.012 (0.01-0.034) ng/mL Total Protein 8.4 H (6.3-8.2) g/dL Albumin 4.8 (3.5-5.0) g/dL Globulin 3.6 (1.7-4.1) g/dL Albumin/Globulin Ratio 1.3 (1.0-2.8) Lipase 131 (23-300) U/L Procalcitonin (<0.5) ng/mL Urine Color Urine Appearance Urine pH (4.5-8.0) Ur Specific [place] (1.000-1.035) Urine Protein (Negative) Urine Glucose (UA) (Negative) g/dL Urine Ketones (NEGATIVE) Urine Occult Blood (Negative) Urine Nitrate (Negative) Urine Bilirubin (NEGATIVE) Urine Urobilinogen (0.2) E.U./dL Ur Leukocyte Esterase (NEGATIVE) Urine RBC (0-5/HPF) Urine WBC (0-5/HPF) Ur Squamous Epith Cells (0-5/HPF) Amorphous Sediment Urine Bacteria (None) Ur Culture Indicated? 12/10/21 12/10/21 Range/Units 11:10 14:45 WBC (4.5-11.0) X10^3/uL RBC (4.0-5.2) X10^6/uL Hgb (12.0-16.0) g/dL Hct (36-46) % MCV (80-100) fL MCH (26-34) PG MCHC (30-36) % RDW (11.6-14.8) % Plt Count (150-400) X10^3/uL Neut % (Auto) (50-75) % Lymph % (Auto) (25-40) % Harlan % (Auto) (3-14) % Eos % (Auto) (2-4) % Baso % (Auto) (0-2) % Neut # (Auto) (4338-5764) /uL Lymph # (Auto) (8693-8969) /uL Harlan # (Auto) (0-900) /uL Eos # (Auto) (0-450) /uL Baso # (Auto) (0-100) /uL Sodium (137-145) mmol/L Potassium (3.4-5.1) mmol/L Chloride (98-107) mmol/L Carbon Dioxide (22-32) mmol/L BUN (7-17) mg/dL Creatinine (0.52-1.04) mg/dL Estimated GFR (>60) mL/min BUN/Creatinine Ratio (6-22) Glucose (80-110) mg/dL Lactate (0.7-2.1) mmol/L Calcium (8.4-10.2) mg/dL Magnesium (1.6-2.3) mg/dL Total Bilirubin (0.2-1.3) mg/dL AST (14-36) IU/L ALT (<35) IU/L Alkaline Phosphatase (38-126) U/L Total Creatine Kinase (30-135) U/L CK-MB (CK-2) CK-MB (CK-2) Rel Index Troponin I (0.01-0.034) ng/mL Total Protein (6.3-8.2) g/dL Albumin (3.5-5.0) g/dL Globulin (1.7-4.1) g/dL Albumin/Globulin Ratio (1.0-2.8) Lipase (23-300) U/L Procalcitonin 0.08 (<0.5) ng/mL Urine Color Yellow Urine Appearance Clear Urine pH 6.0 (4.5-8.0) Ur Specific [place] <=1.005 (1.000-1.035) Urine Protein Negative (Negative) Urine Glucose (UA) Negative (Negative) g/dL Urine Ketones Negative (NEGATIVE) Urine Occult Blood Negative (Negative) Urine Nitrate Negative (Negative) Urine Bilirubin Negative (NEGATIVE) Urine Urobilinogen 0.2 (0.2) E.U./dL Ur Leukocyte Esterase 1+ H (NEGATIVE) Urine RBC None seen (0-5/HPF) Urine WBC 5-10/hpf H (0-5/HPF) Ur Squamous Epith Cells 5-10 /hpf H (0-5/HPF) Amorphous Sediment 1+ Urine Bacteria Moderate (10-30) H (None) Ur Culture Indicated? Specimen cultured Urine Dip Bedside Urine Glucose Negative Bedside Urine Bilirubin - Negative Bedside Urine Ketone - Negative Urine Specific [place] 1.015 Bedside Urine Occult Blood - Negative Bedside Urine pH 6.0 Bedside Urine Protein - Negative Bedside Urine Urobilinogen - Negative Bedside Urine Nitrite - Negative Bedside Urine Leukocytes + 70 Esterase ECG Data Interpretation: Normal sinus rhythm rate 72 TN interval 188 QRS 68 QTC 429 artifact noted no significant ST changes similar to [facility] EKG on December 03 of this year MDM Narrative Medical decision making narrative: Records definitely indicate that she was seen on the at with before she did have blood work according to the note is says potassium was 3.3 BUN was 24 and creatinine was 1.2. However when we called would be they said that she had not been to the ER for these 2 times. I do not have any record of any other workup. Creatinine today is found to be elevated2.01 she is given IV fluids she is tolerating p.o. fluids. She actually is feeling better. She is found have leukocytes in her urine however after just being treated for UTI would wait for culture and sensitivity. She is not septic she does not have fever she does have mild leukocytosis of 12. At this time I recommend she have repeat blood work done with her primary, increase her fluid intake, and definitely return as needed. Discharge Plan Departure Patient Disposition: Home Clinical Impression: Acute kidney injury, Weakness Instructions: DI for Dehydration -- Adult Activity Restrictions/Additional Instructions: *You have been diagnosed with kidney injury dehydration weakness *What to do: At this time increase fluid intake something with sugar and salt recommend Gatorade or Gatorade like products. Please have your kidneys recheck with her primary care provider. At this time I will not start you on antibiotics until urine culture returns *Continue to take medications as directed Zofran 4 mg every 8 hours if needed for nausea vomiting--> SENT TO [facility] IN [place] *Follow up with your primary care provider in 2-3 days or call [phone] *Return to ER if you should have increasing weakness persistent vomiting, increasing pain fever or any new, worsening or concerning symptoms Prescriptions: New ondansetron 4 mg tablet,disintegrating 4 mg PO Q8H PRN (Reason: nausea and vomiting) Qty: 10 0RF No Action gabapentin 300 mg capsule 300 mg PO .COMPLEX Qty: 90 2RF Rx Instructions: 1-2 PO Tid to begin at HS and titrate to pain relief tramadol 50 mg tablet 50 mg PO TID PRN (Reason: pain) Qty: 30 1RF aspirin 81 mg Tablet,Chewable 81 mg PO QAM 0RF ondansetron 4 mg tablet,disintegrating 4 mg PO Q8H PRN (Reason: nausea and vomiting) Qty: 10 0RF hydrochlorothiazide 25 mg Tablet 25 mg PO DAILY 0RF furosemide 20 mg Tablet 10 mg PO QAM 0RF multivitamin Tablet 1 tab PO DAILY Qty: 0 0RF atenolol 25 mg Tablet 25 mg PO DAILY 0RF levothyroxine [Synthroid] 150 mcg Tablet 150 mcg PO DAILY 0RF ezetimibe 10 mg Tablet 10 mg PO DAILY 0RF omega-3 fatty acids-vitamin E 1,000 mg Capsule 1 cap PO DAILY 0RF diazepam [Valium] 10 mg tablet 10 mg PO ONCE MDD 3 tabs Qty: 10 0RF potassium chloride 10 mEq capsule, extended release 20 meq PO DAILY 0RF cholecalciferol (vitamin D3) 50 mcg (2,000 unit) capsule 50 mcg PO DAILY 0RF Eliquis 5 mg tablet 5 mg PO BID 0RF Referrals: Isaak Vasquez DO [Primary Care Provider] -
[2021-12-10 11:48] LABS: Troponin I < 0.012 ng/mL (0.01-0.034)
[2021-12-10] MEDS: SODIUM CHLORIDE 0.9% 1,000 ML 1000 ML IV (12:21)
[2021-12-10 12:25] LABS: Lactate (Lactic Acid) 1.6 mmol/L (0.7-2.1)
--- NOTE | 2021-12-10 12:31 | DI.CT.S_ITS ---
PROCEDURE: CT ABDOMEN PELVIS WO CON INDICATIONS: Persistent vomiting weight loss renal failure TECHNIQUE: Noncontrast 5 mm thick sections acquired from the diaphragms to the symphysis. 5 mm coronal and sagittal reformats were then performed. For radiation dose reduction, the following was used: automated exposure control, adjustment of mA and/or kV according to patient size. COMPARISON: None. FINDINGS: Image quality: Excellent. Lung bases: Lung bases are clear. Heart size is normal. Solid organs: Liver: The liver has no mass or intrahepatic biliary ductal dilatation. Biliary: Status post cholecystectomy. Pancreas: The pancreas has no mass or ductal dilatation. There is no surrounding inflammation. Spleen: Normal size. There are no masses. Adrenals: No hypertrophy or nodules. Kidneys: No obstructive calculus or hydronephrosis. No solid mass. No cystic mass. Peritoneum and bowel: There is a hiatal hernia. The small bowel has a normal caliber and appearance. The terminal ileum is normal. The large bowel has diverticulosis without evidence of diverticulitis. No free fluid or air. Nodes and vessels: No retroperitoneal or mesenteric adenopathy by size criteria. The aorta has atherosclerosis with no aneurysmal dilatation. Miscellaneous: No abdominal wall mass or hernia. PELVIS: Genitourinary: The bladder has no wall thickening or mass. No bladder calcifications. Bones: Degenerative changes with no focal abnormality. No vertebral body compression fractures. IMPRESSION: 1. No acute abdominal or pelvic abnormality. 2. Small hiatal hernia. Dictated by: Lee Lazo M.D. on 12/10/2021 at 13:11 Approved by: Lee Lazo M.D. on 12/10/2021 at 13:16
[2021-12-10 12:42] LABS: Procalcitonin 0.08 ng/mL (<0.5)
--- NOTE | 2021-12-10 12:55 | DI.CT.S_ITS ---
PROCEDURE: CT HEAD/BRAIN WO CON INDICATIONS: hit head vomiting TECHNIQUE: Noncontrast 4.5 mm thick angled axial sections acquired from the foramen magnum to the vertex, with coronal and sagittal reformats. For radiation dose reduction, the following was used: automated exposure control, adjustment of mA and/or kV according to patient size. COMPARISON: None. FINDINGS: Image quality: Excellent. CSF spaces: Basal cisterns are patent. No extra-axial fluid collections. Ventricles are normal in size and shape. Brain: Mild global cerebral volume loss. Chronic microvascular ischemic changes. No midline shift. No intracranial masses or hemorrhage. Moy-white matter interface is normal. Skull and face: Calvarium and visualized facial bones are intact, without suspicious lesions. Sinuses: Visualized sinuses and mastoids are clear. IMPRESSION: No acute intracranial abnormality. Mild global cerebral volume loss and chronic microvascular ischemic changes. Dictated by: Papi Terrazas M.D. on 12/10/2021 at 13:10 Approved by: Papi Terrazas M.D. on 12/10/2021 at 13:11
[2021-12-10] MEDS: ONDANSETRON 4 MG/2 ML INJ IV (13:34)
[2021-12-10 14:48] LABS: Appearance Urine UA CLEAR; Bilirubin Urine UA NEGATIVE (NEGATIVE); Color Urine UA YELLOW; Glucose Urine UA NEGATIVE (Negative); Ketones Urine UA NEGATIVE (NEGATIVE); Leukocyte Esterase Urine UA 1+ (NEGATIVE); Nitrite Urine UA NEGATIVE (Negative); Occult Blood Urine UA NEGATIVE (Negative); Protein Urine UA NEGATIVE (Negative); Specific Gravity Urine UA <=1.005 (1.000-1.035); Urobilinogen Urine UA 0.2 E.U./dL (0.2)
[2021-12-10 14:59] LABS: RBC Urine None Seen (0-5/HPF); WBC Urine 5-10/HPF (0-5/HPF)
[2021-12-10 15:00] LABS: Amorphous Sediment Urine 1+; Bacteria Urine Moderate (10-30); Culture Indicated Urine Specimen Cultured; Squamous Epithelial Cell Urine 5-10 /HPF (0-5/HPF)
== END 2021-12-10 15:42 | disposition home or self-care (01) ==
PROVIDERS: Emergency Provider Emergency Medicine; PCP Family Medicine
DX: N17.9 Acute kidney failure, unspecified (principal); R53.1 Weakness; Z87.891 Personal history of nicotine dependence; S00.10XA Contusion of unspecified eyelid and periocular area, initial encounter; W19.XXXA Unspecified fall, initial encounter; R11.2 Nausea with vomiting, unspecified
CPT/HCPCS: 36415; 70450; 71045; 74176; 80053; 81001; 81003; 82550; 83605; 83690; 83735; 84145; 84484; 85025; 87086; 93005; 93010; 96361; 96374; 99284; J2405

== ENCOUNTER 2021-12-17 14:13 | Emergency (ER) | payer MEDICARE, OTHER, SELFPAY ==
[2021-06-25 17:33] VITALS: BMI 28.1
[2021-12-17] VITALS (16 sets, daily range): BP systolic 100–144; BP diastolic 52–78; PULSE 62–75; RESP 15–16; TEMP 36.9; O2SAT 95–99; BMI 28.1
--- NOTE | 2021-12-17 14:56 | DI.RAD.S_ITS ---
PROCEDURE: XR CHEST 1V INDICATIONS: dizziness TECHNIQUE: One view of the chest was acquired. COMPARISON: [facility], CR, XR CHEST 1V, 12/10/2021, 10:28. FINDINGS: Surgical changes and devices: None. Lungs and pleura: Lungs are clear. No pleural effusions or pneumothorax. Mediastinum: Mediastinal contours appear normal. Heart size is normal. Bones and chest wall: No suspicious bony lesions. Overlying soft tissues appear unremarkable. IMPRESSION: No acute pulmonary process. Dictated by: Lolis Valdez M.D. on 12/17/2021 at 15:08 Approved by: Lolis Valdez M.D. on 12/17/2021 at 15:08
--- NOTE | 2021-12-17 15:00 | ED_ITS ---
HPI - Weakness <Caio Dixon PA-C - Last Filed: 12/17/21 19:51> General Chief complaint: Weakness Stated complaint: Weakness/Nausea Time Seen by Provider: 12/17/21 14:46 Source: patient Mode of arrival: Ambulatory History of Present Illness HPI Narrative: Patient is a 71-year-old female presents to the ED complaining of nausea vomiting weakness. She states she was seen in the ER week ago was given fluids and anti nausea medications and was told she had dehydration. She states that over the past few days she has had more nausea and vomiting with light episode of diarrhea. She denies any abdominal pain. She is concerned that she is developing dehydration again as she tried to drink some Gatorade today and was not able to keep that down. Related Data Home Medications Medication Instructions Recorded Confirmed aspirin 81 mg chewable tablet 81 mg PO QAM 07/26/20 11/11/21 atenolol 25 mg tablet 25 mg PO DAILY 06/25/21 11/11/21 ezetimibe 10 mg tablet 10 mg PO DAILY 06/25/21 11/11/21 levothyroxine 150 mcg tablet 150 mcg PO DAILY 06/25/21 11/11/21 (Synthroid) multivitamin 1 tab PO DAILY #0 06/25/21 11/11/21 omega-3 fatty acids-vitamin E 1 cap PO DAILY 06/25/21 11/11/21 1,000 mg capsule furosemide 20 mg tablet 10 mg PO QAM 07/09/21 11/11/21 hydrochlorothiazide 25 mg tablet 25 mg PO DAILY 07/09/21 11/11/21 apixaban 5 mg tablet (Eliquis) 5 mg PO BID 07/22/21 11/11/21 cholecalciferol (vitamin D3) 50 50 mcg PO DAILY 07/22/21 11/11/21 mcg (2,000 unit) capsule potassium chloride 10 mEq 20 meq PO DAILY 07/22/21 11/11/21 capsule,extended release Previous Rx's Medication Instructions Recorded ondansetron 4 mg disintegrating 4 mg PO Q8H PRN #10 tab 06/24/21 tablet gabapentin 300 mg capsule 300 mg PO .COMPLEX #90 cap 09/10/21 diazepam 10 mg tablet (Valium) 10 mg PO ONCE #10 tab MDD 3 tabs 11/11/21 tramadol 50 mg tablet 50 mg PO TID PRN #30 tab 11/19/21 ondansetron 4 mg disintegrating 4 mg PO Q8H PRN #10 tab 12/10/21 tablet promethazine 12.5 mg tablet 12.5 mg PO TID PRN #14 tab 12/17/21 Allergies Allergy/AdvReac Type Severity Reaction Status Date / Time lisinopril Allergy Severe Anaphylaxis Verified 12/17/21 14:21 metformin AdvReac Vomiting Verified 12/17/21 14:21 Review of Systems <Caio Dixon PA-C - Last Filed: 12/17/21 19:51> Review of Systems ROS Unobtainable: All systems reviewed & are unremarkable except as noted in HPI and below Constitutional Constitutional: Denies chills, Denies fatigue, Denies fever(s), Denies frequent falls, Denies lethargy and Denies weakness Eyes Eyes: Denies change in vision, Denies eye discharge, Denies irritation and Denies loss of vision ENT Ears, Nose, Mouth, and Throat: Denies change in voice, Denies dizziness, Denies neck pain, Denies sore throat and Denies throat swelling Cardiovascular Cardiovascular: Denies chest pain, Denies irregular heart rhythm, Denies lightheadedness, Denies palpitations, Denies dyspnea, Denies dyspnea on exertion and Denies orthopnea Respiratory Respiratory: Denies cough, Denies dyspnea, Denies dyspnea on exertion and Denies wheezing Gastrointestinal Gastrointestinal: Reports abdominal pain, Denies change in bowel habits, Denies diarrhea, Reports nausea and Reports vomiting Genitourinary Genitourinary: Denies hematuria, Denies flank pain, Denies urinary incontinence and Denies urinary urgency Musculoskeletal Musculoskeletal: Denies back pain, Denies muscle weakness, Denies neck pain, Denies numbness and Denies tingling Integumentary/Breasts Skin/Breast: Denies pruritus, Denies erythema, Denies rash and Denies wounds Neurologic Neurologic: Denies behavioral changes, Denies confusion, Denies dizziness, Denies frequent falls, Denies loss of vision, Denies numbness, Denies tingling and Denies weakness Psychiatric Psychiatric: Denies anxiety, Denies behavioral changes, Denies confusion, Denies depression, Denies homicidal ideation and Denies suicidal ideation Endocrine Endocrine: Denies fatigue, Denies flushing and Denies palpitations Hematologic/Lymphatic Hematologic/Lymphatic: Denies easy bruising Allergic/Immunologic Allergic/Immunologic: Denies urticaria, Denies throat swelling and Denies wheezing Patient History <Caio Dixon PA-C - Last Filed: 12/17/21 19:51> Medical History Atrial fibrillation Breast cancer Chronic back pain Chronic pancreatitis Depression Facet arthropathy, lumbar Heart murmur HLD (hyperlipidemia) Hypertension Hypothyroidism Lumbar radiculopathy Migraine headache Nose fracture (~06/29/21) Tinnitus Surgical History History of colonoscopy History of hysterectomy Hx of breast surgery Hx of cholecystectomy Hx of oophorectomy Hx of tonsillectomy Family History Father Brain tumor Congestive heart failure Mother Hypertension Stroke Grandfather Stroke Social History household members: spouse Smoking Status: Former smoker alcohol intake: current Smoking Status: Former smoker alcohol intake frequency: a few times a week Alcohol type: wine Substance Use Type: does not use Exam <Caio Dixon PA-C - Last Filed: 12/17/21 19:51> Initial Vital Signs Initial Vital Signs: Vital Signs Temperature 98.5 F 12/17/21 14:18 Pulse Rate 75 12/17/21 14:18 Respiratory Rate 15 12/17/21 14:18 Blood Pressure 134/78 12/17/21 14:18 Pulse Oximetry 96 12/17/21 14:18 Const General: cooperative and acute distress Nutritional Appearance: well nourished Orientation: Orientation [facility] Head: normal to inspection and normocephalic Ears: hearing grossly normal bilaterally, external ears normal and TM's normal bilaterally Nose: external nose normal, nares normal and nasal mucous membranes and turbinates normal Face and sinus: normal facial exam Mouth: oral mucosae normal Eyes Pupils: PERRL Resp Effort & Inspection: normal respiratory effort and able to speak in complete sentences Auscultation: clear to auscultation bilaterally Cardio Rate: regular rate Rhythm: regular rhythm Heart Sounds: S1 normal and S2 normal GI Inspection: normal to inspection Palpation: soft and no hepatosplenomegaly Percussion: normal to percussion Auscultation: normal bowel sounds Skin General: no rashes or lesions noted <Cindi Dawson MD - Last Filed: 12/17/21 21:05> Initial Vital Signs Initial Vital Signs: Vital Signs Temperature 98.5 F 12/17/21 14:18 Pulse Rate 75 12/17/21 14:18 Respiratory Rate 15 12/17/21 14:18 Blood Pressure 134/78 12/17/21 14:18 Pulse Oximetry 96 12/17/21 14:18 Course <Caio Dixon PA-C - Last Filed: 12/17/21 19:51> Orders Ordered: ED Orders 12/17/21 14:56 XR chest 1V Stat EKG-12 Lead Stat 12/17/21 15:28 BNP [NT-proBNP (BNP-Adult 18+)] Stat CBC Auto Diff [Complete Blood Count AUTO DIFF] Stat CMP [Comprehensive Metabolic Panel] Stat Lipase Stat TSH w/ Reflex to FT4 Stat Troponin & CK Cardiac Panel Stat 12/17/21 15:45 UA Complete [Urinalysis and Microscopic] Stat 12/17/21 19:44 CMP [Comprehensive Metabolic Panel] Stat Acetaminophen (Acetaminophen 325 Mg Tablet) 650 mg PO Q4HR PRN PRN Reason: Fever/Mild Pain (1-3) Last Admin: 12/17/21 17:57 Dose: 650 mg Documented by: MANDY Ondansetron HCl (Ondansetron 4 Mg/2 Ml Inj) 4 mg IV Q2HR PRN PRN Reason: Nausea And Vomiting Last Admin: 12/17/21 15:48 Dose: 4 mg Documented by: VALENTIN Discontinued Medications Sodium Chloride (Normal Saline 0.9%) 1,000 mls @ 1,000 mls/hr IV BOLUS ONE Stop: 12/17/21 15:55 Last Infusion: 12/17/21 17:03 Dose: 0 mls/hr Documented by: Admin: 12/17/21 15:48 Dose: 1,000 mls/hr Documented by: VALENTIN POTASSIUM CHLORIDE IN WATER (Potassium Cl 10 Meq/100 Ml [place]) 10 meq in 100 mls @ 100 mls/hr IV Q1H GILA Stop: 12/17/21 18:44 Last Infusion: 12/17/21 20:19 Dose: 0 mls/hr Documented by: Infusion: 12/17/21 19:02 Dose: 65 mls/hr Documented by: Admin: 12/17/21 18:28 Dose: 75 mls/hr Documented by: Infusion: 12/17/21 18:18 Dose: 0 mls/hr Documented by: Admin: 12/17/21 16:56 Dose: 100 mls/hr Documented by: VALENTIN Sodium Chloride (Normal Saline 0.9%) 1,000 mls @ 1,000 mls/hr IV BOLUS ONE Stop: 12/17/21 19:27 Last Admin: 12/17/21 18:40 Dose: 1,000 mls/hr Documented by: VALENTIN Reevaluation(s) Reevaluation #1: Patient doing much better nausea has subsided patient was up ambulating to the bathroom to urinate reporting that she is feeling much better and her abdominal pain has subsided. Will recheck labs and reassess. Consultations Consultation #1: Spoke with the hospitalist regarding knobs admission. She recommended treating the patient in the ED and if no improvement contact back. Will hold the patient in the ED for now replace potassium and fluids manage symptoms and reassess. Vital Signs Vital signs: Vital Signs - 8 hr 12/17/21 14:18 12/17/21 15:50 12/17/21 15:51 Temperature 98.5 F Pulse Rate 75 68 69 Respiratory Rate 15 Blood Pressure 134/78 133/70 Pulse Oximetry 96 95 12/17/21 16:00 12/17/21 16:30 12/17/21 17:00 Temperature Pulse Rate 63 71 72 Respiratory Rate Blood Pressure 124/60 134/70 140/71 Pulse Oximetry 98 99 99 12/17/21 17:30 12/17/21 18:00 12/17/21 18:30 Temperature Pulse Rate 70 70 68 Respiratory Rate 16 Blood Pressure 144/63 H 124/58 L 127/60 Pulse Oximetry 98 98 97 12/17/21 19:00 12/17/21 19:01 12/17/21 19:30 Temperature Pulse Rate 67 67 66 Respiratory Rate Blood Pressure 105/52 L 109/53 L Pulse Oximetry 98 98 96 <Cindi Dawson MD - Last Filed: 12/17/21 21:05> Orders Ordered: ED Orders 12/17/21 14:56 XR chest 1V Stat EKG-12 Lead Stat 12/17/21 15:28 BNP [NT-proBNP (BNP-Adult 18+)] Stat CBC Auto Diff [Complete Blood Count AUTO DIFF] Stat CMP [Comprehensive Metabolic Panel] Stat Lipase Stat TSH w/ Reflex to FT4 Stat Troponin & CK Cardiac Panel Stat 12/17/21 15:45 UA Complete [Urinalysis and Microscopic] Stat 12/17/21 19:44 CMP [Comprehensive Metabolic Panel] Stat Acetaminophen (Acetaminophen 325 Mg Tablet) 650 mg PO Q4HR PRN PRN Reason: Fever/Mild Pain (1-3) Last Admin: 12/17/21 17:57 Dose: 650 mg Documented by: MANDY Ondansetron HCl (Ondansetron 4 Mg/2 Ml Inj) 4 mg IV Q2HR PRN PRN Reason: Nausea And Vomiting Last Admin: 12/17/21 15:48 Dose: 4 mg Documented by: VALENTIN Discontinued Medications Sodium Chloride (Normal Saline 0.9%) 1,000 mls @ 1,000 mls/hr IV BOLUS ONE Stop: 12/17/21 15:55 Last Infusion: 12/17/21 17:03 Dose: 0 mls/hr Documented by: Admin: 12/17/21 15:48 Dose: 1,000 mls/hr Documented by: VALENTIN POTASSIUM CHLORIDE IN WATER (Potassium Cl 10 Meq/100 Ml [place]) 10 meq in 100 mls @ 100 mls/hr IV Q1H GILA Stop: 12/17/21 18:44 Last Infusion: 12/17/21 20:19 Dose: 0 mls/hr Documented by: Infusion: 12/17/21 19:02 Dose: 65 mls/hr Documented by: Admin: 12/17/21 18:28 Dose: 75 mls/hr Documented by: Infusion: 12/17/21 18:18 Dose: 0 mls/hr Documented by: Admin: 12/17/21 16:56 Dose: 100 mls/hr Documented by: VALENTIN Sodium Chloride (Normal Saline 0.9%) 1,000 mls @ 1,000 mls/hr IV BOLUS ONE Stop: 12/17/21 19:27 Last Admin: 12/17/21 18:40 Dose: 1,000 mls/hr Documented by: VALENTIN Vital Signs Vital signs: Vital Signs - 8 hr 12/17/21 14:18 12/17/21 15:50 12/17/21 15:51 Temperature 98.5 F Pulse Rate 75 68 69 Respiratory Rate 15 Blood Pressure 134/78 133/70 Pulse Oximetry 96 95 12/17/21 16:00 12/17/21 16:30 12/17/21 17:00 Temperature Pulse Rate 63 71 72 Respiratory Rate Blood Pressure 124/60 134/70 140/71 Pulse Oximetry 98 99 99 12/17/21 17:30 12/17/21 18:00 12/17/21 18:30 Temperature Pulse Rate 70 70 68 Respiratory Rate 16 Blood Pressure 144/63 H 124/58 L 127/60 Pulse Oximetry 98 98 97 12/17/21 19:00 12/17/21 19:01 12/17/21 19:30 Temperature Pulse Rate 67 67 66 Respiratory Rate Blood Pressure 105/52 L 109/53 L Pulse Oximetry 98 98 96 MDM - Weakness <Caio Dixon PA-C - Last Filed: 12/17/21 19:51> Differential Diagnosis Differential diagnosis: Likely dehydration Lab Data Result diagrams: 12/17/21 15:28 12/17/21 19:44 Labs: Lab Results 12/17/21 12/17/21 12/17/21 Range/Units 15:28 15:28 15:28 WBC 9.2 (4.5-11.0) X10^3/uL RBC 4.69 (4.0-5.2) X10^6/uL Hgb 14.6 (12.0-16.0) g/dL Hct 42.2 (36-46) % MCV 90.0 (80-100) fL MCH 31.2 (26-34) PG MCHC 34.7 (30-36) % RDW 13.9 (11.6-14.8) % Plt Count 306 (150-400) X10^3/uL Neut % (Auto) 68.5 (50-75) % Lymph % (Auto) 20.1 L (25-40) % [place] % (Auto) 9.3 (3-14) % Eos % (Auto) 1.1 L (2-4) % Baso % (Auto) 1.0 (0-2) % Neut # (Auto) 6300 (4011-5464) /uL Lymph # (Auto) 1900 (4480-4468) /uL [place] # (Auto) 900 (0-900) /uL Eos # (Auto) 100 (0-450) /uL Baso # (Auto) 100 (0-100) /uL Sodium 135 L (137-145) mmol/L Potassium 2.7 L* (3.4-5.1) mmol/L Chloride 90 L (98-107) mmol/L Carbon Dioxide 35 H (22-32) mmol/L BUN 15 (7-17) mg/dL Creatinine 1.17 H (0.52-1.04) mg/dL Estimated GFR 45.3 L (>60) mL/min BUN/Creatinine Ratio 12.8 (6-22) Glucose 123 H (80-110) mg/dL Calcium 10.0 (8.4-10.2) mg/dL Total Bilirubin 0.8 (0.2-1.3) mg/dL AST 64 H (14-36) IU/L ALT 69 H (<35) IU/L Alkaline Phosphatase 104 (38-126) U/L Total Creatine Kinase 74 (30-135) U/L CK-MB (CK-2) TNP CK-MB (CK-2) Rel Index TNP Troponin I 0.012 (0.01-0.034) ng/mL NT-Pro-B Natriuret Pep 282 H (<125) pg/mL Total Protein 7.7 (6.3-8.2) g/dL Albumin 4.4 (3.5-5.0) g/dL Globulin 3.3 (1.7-4.1) g/dL Albumin/Globulin Ratio 1.3 (1.0-2.8) Lipase 66 (23-300) U/L TSH Cancelled Urine Color Urine Appearance Urine pH (4.5-8.0) Ur Specific [place] (1.000-1.035) Urine Protein (Negative) Urine Glucose (UA) (Negative) g/dL Urine Ketones (NEGATIVE) Urine Occult Blood (Negative) Urine Nitrate (Negative) Urine Bilirubin (NEGATIVE) Urine Urobilinogen (0.2) E.U./dL Ur Leukocyte Esterase (NEGATIVE) Urine RBC (0-5/HPF) Urine WBC (0-5/HPF) Ur Squamous Epith Cells (0-5/HPF) Urine Bacteria (None) Ur Culture Indicated? 12/17/21 12/17/21 12/17/21 Range/Units 15:28 15:45 19:44 WBC (4.5-11.0) X10^3/uL RBC (4.0-5.2) X10^6/uL Hgb (12.0-16.0) g/dL Hct (36-46) % MCV (80-100) fL MCH (26-34) PG MCHC (30-36) % RDW (11.6-14.8) % Plt Count (150-400) X10^3/uL Neut % (Auto) (50-75) % Lymph % (Auto) (25-40) % [place] % (Auto) (3-14) % Eos % (Auto) (2-4) % Baso % (Auto) (0-2) % Neut # (Auto) (8426-4106) /uL Lymph # (Auto) (3158-8443) /uL [place] # (Auto) (0-900) /uL Eos # (Auto) (0-450) /uL Baso # (Auto) (0-100) /uL Sodium 136 L (137-145) mmol/L Potassium 3.2 L (3.4-5.1) mmol/L Chloride 94 L (98-107) mmol/L Carbon Dioxide 36 H (22-32) mmol/L BUN 15 (7-17) mg/dL Creatinine 1.22 H (0.52-1.04) mg/dL Estimated GFR 43.2 L (>60) mL/min BUN/Creatinine Ratio 12.3 (6-22) Glucose 114 H (80-110) mg/dL Calcium 9.5 (8.4-10.2) mg/dL Total Bilirubin 0.8 (0.2-1.3) mg/dL AST 59 H (14-36) IU/L ALT 62 H (<35) IU/L Alkaline Phosphatase 85 (38-126) U/L Total Creatine Kinase (30-135) U/L CK-MB (CK-2) CK-MB (CK-2) Rel Index Troponin I (0.01-0.034) ng/mL NT-Pro-B Natriuret Pep (<125) pg/mL Total Protein 7.1 (6.3-8.2) g/dL Albumin 4.1 (3.5-5.0) g/dL Globulin 3.0 (1.7-4.1) g/dL Albumin/Globulin Ratio 1.4 (1.0-2.8) Lipase (23-300) U/L TSH 4.66 Urine Color Yellow Urine Appearance Clear Urine pH 7.0 (4.5-8.0) Ur Specific [place] 1.010 (1.000-1.035) Urine Protein Negative (Negative) Urine Glucose (UA) Negative (Negative) g/dL Urine Ketones Negative (NEGATIVE) Urine Occult Blood Negative (Negative) Urine Nitrate Negative (Negative) Urine Bilirubin Negative (NEGATIVE) Urine Urobilinogen 0.2 (0.2) E.U./dL Ur Leukocyte Esterase Negative (NEGATIVE) Urine RBC 0-1/hpf (0-5/HPF) Urine WBC 0-1/hpf (0-5/HPF) Ur Squamous Epith Cells 0-1 /hpf (0-5/HPF) Urine Bacteria None seen (None) Ur Culture Indicated? Cult not indicated Imaging Data Chest x-ray: Radiologist Impression: PROCEDURE:? XR CHEST 1V ? INDICATIONS:? dizziness ? TECHNIQUE:? One view of the chest was acquired.? ? COMPARISON:? [facility], , XR CHEST 1V, 12/10/2021, 10:28. ? FINDINGS:? ? Surgical changes and devices:? None.? ? Lungs and pleura:? Lungs are clear.? No pleural effusions or pneumothorax.? ? Mediastinum:? Mediastinal contours appear normal.? Heart size is normal.? ? Bones and chest wall:? No suspicious bony lesions.? Overlying soft tissues appear unremarkable.? ? IMPRESSION:? No acute pulmonary process. ? ? Dictated by: Lolis Valdez M.D. on 12/17/2021 at 15:08 ? ? Approved by: Lolis Valdez M.D. on 12/17/2021 at 15:08?? [facility] Narrative Medical decision making narrative: The patient was evaluated today for abdominal pain nausea vomiting. Lab work shows evidence of dehydration with electrolyte abnormalities. IV fluids and pot assium supplement was given with her antiemetics. Patient responded well. Will continue the IV fluids and will recheck her lab work and reassess. She will likely be discharged home once feeling better. <Cindi Dawson MD - Last Filed: 12/17/21 21:05> Lab Data Labs: Lab Results 12/17/21 12/17/21 12/17/21 Range/Units 15:28 15:28 15:28 WBC 9.2 (4.5-11.0) X10^3/uL RBC 4.69 (4.0-5.2) X10^6/uL Hgb 14.6 (12.0-16.0) g/dL Hct 42.2 (36-46) % MCV 90.0 (80-100) fL MCH 31.2 (26-34) PG MCHC 34.7 (30-36) % RDW 13.9 (11.6-14.8) % Plt Count 306 (150-400) X10^3/uL Neut % (Auto) 68.5 (50-75) % Lymph % (Auto) 20.1 L (25-40) % [place] % (Auto) 9.3 (3-14) % Eos % (Auto) 1.1 L (2-4) % Baso % (Auto) 1.0 (0-2) % Neut # (Auto) 6300 (3840-8112) /uL Lymph # (Auto) 1900 (3641-6831) /uL [place] # (Auto) 900 (0-900) /uL Eos # (Auto) 100 (0-450) /uL Baso # (Auto) 100 (0-100) /uL Sodium 135 L (137-145) mmol/L Potassium 2.7 L* (3.4-5.1) mmol/L Chloride 90 L (98-107) mmol/L Carbon Dioxide 35 H (22-32) mmol/L BUN 15 (7-17) mg/dL Creatinine 1.17 H (0.52-1.04) mg/dL Estimated GFR 45.3 L (>60) mL/min BUN/Creatinine Ratio 12.8 (6-22) Glucose 123 H (80-110) mg/dL Calcium 10.0 (8.4-10.2) mg/dL Total Bilirubin 0.8 (0.2-1.3) mg/dL AST 64 H (14-36) IU/L ALT 69 H (<35) IU/L Alkaline Phosphatase 104 (38-126) U/L Total Creatine Kinase 74 (30-135) U/L CK-MB (CK-2) TNP CK-MB (CK-2) Rel Index TNP Troponin I 0.012 (0.01-0.034) ng/mL NT-Pro-B Natriuret Pep 282 H (<125) pg/mL Total Protein 7.7 (6.3-8.2) g/dL Albumin 4.4 (3.5-5.0) g/dL Globulin 3.3 (1.7-4.1) g/dL Albumin/Globulin Ratio 1.3 (1.0-2.8) Lipase 66 (23-300) U/L TSH Cancelled Urine Color Urine Appearance Urine pH (4.5-8.0) Ur Specific [place] (1.000-1.035) Urine Protein (Negative) Urine Glucose (UA) (Negative) g/dL Urine Ketones (NEGATIVE) Urine Occult Blood (Negative) Urine Nitrate (Negative) Urine Bilirubin (NEGATIVE) Urine Urobilinogen (0.2) E.U./dL Ur Leukocyte Esterase (NEGATIVE) Urine RBC (0-5/HPF) Urine WBC (0-5/HPF) Ur Squamous Epith Cells (0-5/HPF) Urine Bacteria (None) Ur Culture Indicated? 12/17/21 12/17/21 12/17/21 Range/Units 15:28 15:45 19:44 WBC (4.5-11.0) X10^3/uL RBC (4.0-5.2) X10^6/uL Hgb (12.0-16.0) g/dL Hct (36-46) % MCV (80-100) fL MCH (26-34) PG MCHC (30-36) % RDW (11.6-14.8) % Plt Count (150-400) X10^3/uL Neut % (Auto) (50-75) % Lymph % (Auto) (25-40) % [place] % (Auto) (3-14) % Eos % (Auto) (2-4) % Baso % (Auto) (0-2) % Neut # (Auto) (2113-4939) /uL Lymph # (Auto) (9247-7534) /uL [place] # (Auto) (0-900) /uL Eos # (Auto) (0-450) /uL Baso # (Auto) (0-100) /uL Sodium 136 L (137-145) mmol/L Potassium 3.2 L (3.4-5.1) mmol/L Chloride 94 L (98-107) mmol/L Carbon Dioxide 36 H (22-32) mmol/L BUN 15 (7-17) mg/dL Creatinine 1.22 H (0.52-1.04) mg/dL Estimated GFR 43.2 L (>60) mL/min BUN/Creatinine Ratio 12.3 (6-22) Glucose 114 H (80-110) mg/dL Calcium 9.5 (8.4-10.2) mg/dL Total Bilirubin 0.8 (0.2-1.3) mg/dL AST 59 H (14-36) IU/L ALT 62 H (<35) IU/L Alkaline Phosphatase 85 (38-126) U/L Total Creatine Kinase (30-135) U/L CK-MB (CK-2) CK-MB (CK-2) Rel Index Troponin I (0.01-0.034) ng/mL NT-Pro-B Natriuret Pep (<125) pg/mL Total Protein 7.1 (6.3-8.2) g/dL Albumin 4.1 (3.5-5.0) g/dL Globulin 3.0 (1.7-4.1) g/dL Albumin/Globulin Ratio 1.4 (1.0-2.8) Lipase (23-300) U/L TSH 4.66 Urine Color Yellow Urine Appearance Clear Urine pH 7.0 (4.5-8.0) Ur Specific [place] 1.010 (1.000-1.035) Urine Protein Negative (Negative) Urine Glucose (UA) Negative (Negative) g/dL Urine Ketones Negative (NEGATIVE) Urine Occult Blood Negative (Negative) Urine Nitrate Negative (Negative) Urine Bilirubin Negative (NEGATIVE) Urine Urobilinogen 0.2 (0.2) E.U./dL Ur Leukocyte Esterase Negative (NEGATIVE) Urine RBC 0-1/hpf (0-5/HPF) Urine WBC 0-1/hpf (0-5/HPF) Ur Squamous Epith Cells 0-1 /hpf (0-5/HPF) Urine Bacteria None seen (None) Ur Culture Indicated? Cult not indicated MDM Narrative Medical decision making narrative: The patient was evaluated today for abdominal pain nausea vomiting. Lab work shows evidence of dehydration with electrolyte abnormalities. IV fluids and potassium supplement was given with her antiemetics. Patient responded well. Will continue the IV fluids and will recheck her lab work and reassess. She will likely be discharged home once feeling better. 9pm Dr Dawson: Care is assumed of this 71-year-old woman who presented with weakness vomiting and diarrhea. She has had both vomiting and diarrhea for approximately 3 weeks states that she has lost about 15 lb has had intermittent creatinine bumps and today comes in with mild hypokalemia and complaints of weakness. Through this 3 weeks she has had all appropriate imaging done with a abdominal pelvis CT on December 10. There was report that she had hit her head and a head CT was done on December 10. Chest x-ray was done today. No significant pathology has been found. When asked about her diarrhea considering the possibility of Clostridium difficile, she states that she is having loose stool once a day rather than voluminous diarrhea. After 2 L of fluid and 20 mg once of IV potassium she is feeling significantly better. She was able to take some oral Tylenol and drink a glass of water without persistent nausea. At home she has Zofran but finds that it has not been helpful in controlling her nausea. I will give her a brief course of Phenergan 12.5 mg to see if this is more effective in controlling her nausea. She does have a follow-up appointment with her primary providerschedule tomorrow. She has independently examined, significantly improved symptoms, soft nonsurgical abdomen. Questions are answered she is safe for home discharge Discharge Plan Departure Patient Disposition: Home Clinical Impression: Acute hypokalemia, Dehydration, Vomiting and diarrhea Instructions: DI for Hypokalemia, DI for Vomiting -- Adult Activity Restrictions/Additional Instructions: Thank you for coming in today Concerned that your continuing to have such nausea and vomiting. Your workup has been fairly reassuring including CT scans of the abdomen, pelvis and head on December 10 and a chest x-ray done today. There is no sign of significant obstructions, cancers, overwhelming infections or additional reasons that would require hospitalization. In the emergency department tonight your given IV fluids and 20 mEq of IV potassium. Please do continue with drinking Gatorade for the potassium replacement. Potassium is high in all of the tropical fruits (simon, papaya, pineapple) as well as orange juice. I have given you copies of recent blood work and radiology studies for you to share with your primary care physician at your appointment tomorrow. You said that Zofran that you have available at home to help with nausea has not been very effective. I am going to give you a prescription for Phenergan to use every 8 hours as needed for nausea to see if this might be more effective than the Zofran for you. If you are having worsening symptoms or additional problems, please feel free to return to the emergency department Prescriptions: New promethazine 12.5 mg tablet 12.5 mg PO TID PRN (Reason: nausea and vomiting) Qty: 14 0RF No Action gabapentin 300 mg capsule 300 mg PO .COMPLEX Qty: 90 2RF Rx Instructions: 1-2 PO Tid to begin at HS and titrate to pain relief tramadol 50 mg tablet 50 mg PO TID PRN (Reason: pain) Qty: 30 1RF aspirin 81 mg Tablet,Chewable 81 mg PO QAM 0RF ondansetron 4 mg tablet,disintegrating 4 mg PO Q8H PRN (Reason: nausea and vomiting) Qty: 10 0RF hydrochlorothiazide 25 mg Tablet 25 mg PO DAILY 0RF furosemide 20 mg Tablet 10 mg PO QAM 0RF ondansetron 4 mg tablet,disintegrating 4 mg PO Q8H PRN (Reason: nausea and vomiting) Qty: 10 0RF multivitamin Tablet 1 tab PO DAILY Qty: 0 0RF atenolol 25 mg Tablet 25 mg PO DAILY 0RF levothyroxine [Synthroid] 150 mcg Tablet 150 mcg PO DAILY 0RF ezetimibe 10 mg Tablet 10 mg PO DAILY 0RF omega-3 fatty acids-vitamin E 1,000 mg Capsule 1 cap PO DAILY 0RF diazepam [Valium] 10 mg tablet 10 mg PO ONCE MDD 3 tabs Qty: 10 0RF potassium chloride 10 mEq capsule, extended release 20 meq PO DAILY 0RF cholecalciferol (vitamin D3) 50 mcg (2,000 unit) capsule 50 mcg PO DAILY 0RF Eliquis 5 mg tablet 5 mg PO BID 0RF Referrals: Isaak Vasquez, [Primary Care Provider] - ED Sign-out <Caio Dixon PA-C - Last Filed: 12/17/21 19:51> Sign Out Provider Sign Out Attestation: Report given to Dr Dawson for futher treatment and evaluation.
[2021-12-17 15:36] LABS: Add Manual Diff / Slide Review NO; Basophils Absolute Auto 100 /uL (0-100); Eosinophils Absolute Auto 100 /uL (0-450); Eosinophils Percent Auto 1.1 % (2-4); Hematocrit 42.2 % (36-46); Hemoglobin 14.6 g/dL (12.0-16.0); Lymphocytes Absolute Auto 1900 /uL (1100-4500); Lymphocytes Percent Auto 20.1 % (25-40); Mean Corpuscular HGB Conc 34.7 % (30-36); Mean Corpuscular Hemoglobin 31.2 PG (26-34); Monocytes Absolute Auto 900 /uL (0-900); Monocytes Percent Auto 9.3 % (3-14); Neutrophils Absolute Auto 6300 /uL (1500-7000); Neutrophils Percent Auto 68.5 % (50-75); Platelet Count 306 X10^3/uL (150-400); Red Blood Cell Count 4.69 X10^6/uL (4.0-5.2); Red Cell Distribution Width 13.9 % (11.6-14.8); White Blood Cell Count 9.2 X10^3/uL (4.5-11.0)
[2021-12-17] MEDS: ONDANSETRON 4 MG/2 ML INJ IV (15:48)
[2021-12-17] MEDS: SODIUM CHLORIDE 0.9% 1,000 ML 1000 ML IV ×2 (15:48→18:40)
[2021-12-17 15:59] LABS: Alanine Aminotransferase 69 IU/L (<35); Albumin 4.4 g/dL (3.5-5.0); Albumin Globulin Ratio 1.3 (1.0-2.8); Alkaline Phosphatase 104 U/L (38-126); Aspartate Aminotransferase 64 IU/L (14-36); BUN Creatinine Ratio 12.8 (6-22); Bilirubin Total 0.8 mg/dL (0.2-1.3); Blood Urea Nitrogen 15 mg/dL (7-17); Carbon Dioxide 35 mmol/L (22-32); Chloride 90 mmol/L (98-107); Creatine Kinase 74 U/L (30-135); Estimated Glomerular Filt Rate 45.3 mL/min (>60); Globulin 3.3 g/dL (1.7-4.1); Glucose 123 mg/dL (80-110); HEMOLYSIS < 15 (0-50); Lipase 66 U/L (23-300); Sodium 135 mmol/L (137-145); Total Protein 7.7 g/dL (6.3-8.2)
[2021-12-17 16:05] LABS: Appearance Urine UA CLEAR; Bilirubin Urine UA NEGATIVE (NEGATIVE); Color Urine UA YELLOW; Glucose Urine UA NEGATIVE (Negative); Ketones Urine UA NEGATIVE (NEGATIVE); Leukocyte Esterase Urine UA NEGATIVE (NEGATIVE); Nitrite Urine UA NEGATIVE (Negative); Occult Blood Urine UA NEGATIVE (Negative); Protein Urine UA NEGATIVE (Negative); Urobilinogen Urine UA 0.2 E.U./dL (0.2)
[2021-12-17 16:10] LABS: NT-proBNP (BNP-Adult 18+) 282 pg/mL (<125); Troponin I 0.012 ng/mL (0.01-0.034)
[2021-12-17 16:17] LABS: Potassium 2.7 mmol/L (3.4-5.1)
[2021-12-17 16:18] LABS: Bacteria Urine None Seen; Culture Indicated Urine Cult Not Indicated; RBC Urine 0-1/HPF (0-5/HPF); Squamous Epithelial Cell Urine 0-1 /HPF (0-5/HPF); WBC Urine 0-1/HPF (0-5/HPF)
[2021-12-17 16:39] LABS: TSH w/ Reflex to FT4 4.66 uIU/mL (0.47-4.68)
[2021-12-17] MEDS: POTASSIUM CHLORIDE IN WATER 10 MEQ/100 ML PIGGYBACK 100 MEQ IV (16:56)
[2021-12-17] MEDS: ACETAMINOPHEN 325 MG TABLET 650 MG PO (17:57)
[2021-12-17] MEDS: POTASSIUM CHLORIDE IN WATER 10 MEQ/100 ML PIGGYBACK 75 MEQ IV (18:28)
[2021-12-17 20:06] LABS: Alanine Aminotransferase 62 IU/L (<35); Albumin 4.1 g/dL (3.5-5.0); Albumin Globulin Ratio 1.4 (1.0-2.8); Alkaline Phosphatase 85 U/L (38-126); Aspartate Aminotransferase 59 IU/L (14-36); BUN Creatinine Ratio 12.3 (6-22); Bilirubin Total 0.8 mg/dL (0.2-1.3); Blood Urea Nitrogen 15 mg/dL (7-17); Calcium 9.5 mg/dL (8.4-10.2); Carbon Dioxide 36 mmol/L (22-32); Chloride 94 mmol/L (98-107); Estimated Glomerular Filt Rate 43.2 mL/min (>60); Glucose 114 mg/dL (80-110); HEMOLYSIS < 15 (0-50); Potassium 3.2 mmol/L (3.4-5.1); Sodium 136 mmol/L (137-145); Total Protein 7.1 g/dL (6.3-8.2)
== END 2021-12-17 21:13 | disposition home or self-care (01) ==
PROVIDERS: Physician Assistant; Emergency Provider Emergency Medicine; PCP Family Medicine
DX: E87.6 Hypokalemia (principal); E86.0 Dehydration; R11.2 Nausea with vomiting, unspecified; R19.7 Diarrhea, unspecified; Z87.891 Personal history of nicotine dependence
CPT/HCPCS: 36415; 71045; 80053; 81001; 82550; 83690; 83880; 84443; 84484; 85025; 93005; 93010; 96361; 96365; 96366; 96375; 99284; J2405

== ENCOUNTER 2022-02-28 11:03 | Emergency (ER) | payer MEDICARE, OTHER, SELFPAY ==
[2021-06-25 17:33] VITALS: BMI 28.1
[2022-02-28] VITALS (9 sets, daily range): BP systolic 115–168; BP diastolic 57–80; PULSE 57–77; RESP 18; TEMP 36.5; O2SAT 95–99; BMI 28.1
--- NOTE | 2022-02-28 11:39 | DI.RAD.S_ITS ---
PROCEDURE: XR FOOT RT MIN 3V INDICATIONS: pain and swelling of foot TECHNIQUE: 3 views of the foot were acquired. COMPARISON: None. FINDINGS: Bones: No fractures or dislocations. No suspicious bony lesions. Joint space narrowing and periarticular osteophyte formation at the 1st metatarsophalangeal joint. Soft tissues: No tibiotalar joint effusion. Achilles tendon appears normal. IMPRESSION: Osteoarthritis. No acute fracture. No osseous lesion. If symptoms and/or clinical suspicion for pathology persist, further assessment with repeat, or advanced imaging (e.g., CT, MRI, or bone scan) may be helpful for further assessment. Dictated by: Marcelle Manuel M.D. on 02/28/2022 at 12:14 Approved by: Marcelle Manuel M.D. on 02/28/2022 at 12:14
--- NOTE | 2022-02-28 12:57 | DI.RAD.S_ITS ---
PROCEDURE: XR CHEST 1V INDICATIONS: chest pain TECHNIQUE: One view of the chest was acquired. COMPARISON: [facility], CR, XR CHEST 1V, 12/17/2021, 15:00. FINDINGS: Surgical changes and devices: None. Lungs and pleura: Lungs are clear. No pleural effusions or pneumothorax. Mediastinum: Mediastinal contours appear normal. Heart size is normal. Bones and chest wall: No suspicious bony lesions. Overlying soft tissues appear unremarkable. IMPRESSION: No acute process. Dictated by: Marcelle Manuel M.D. on 02/28/2022 at 14:07 Approved by: Marcelle Manuel M.D. on 02/28/2022 at 14:07
--- NOTE | 2022-02-28 13:16 | DI.US.S_ITS ---
PROCEDURE: US PERIPH VENOUS LOW EXTREM RT INDICATIONS: RIGHT LOWER EXTREMITY PAIN AND SWELLING TECHNIQUE: Real-time imaging, as well as color and pulse Doppler interrogation, were performed of the lower extremity deep veins from the inguinal ligament to the popliteal fossa. COMPARISON: None. FINDINGS: The common femoral, femoral and popliteal veins are normally compressible, and free of intraluminal thrombus. Color and pulse Doppler demonstrate normal phasic intraluminal flow within these regions. Within the calf veins within the proximal and mid posterior tibial vein, there is occlusive deep venous thrombosis seen. IMPRESSION: There is a mild amount of deep venous thrombosis seen distal to the knee within the proximal and mid posterior tibial vein. Dictated by: Justin Ivy M.D. on 02/28/2022 at 15:27 Approved by: Justin Ivy M.D. on 02/28/2022 at 15:28
[2022-02-28 13:44] LABS: Add Manual Diff / Slide Review NO; Basophils Absolute Auto 100 /uL (0-100); Basophils Percent Auto 0.7 % (0-2); Eosinophils Absolute Auto 200 /uL (0-450); Hematocrit 39.1 % (36-46); Hemoglobin 13.3 g/dL (12.0-16.0); Lymphocytes Absolute Auto 1800 /uL (1100-4500); Lymphocytes Percent Auto 18.1 % (25-40); Mean Corpuscular HGB Conc 34.1 % (30-36); Mean Corpuscular Hemoglobin 30.7 PG (26-34); Mean Corpuscular Volume 90.1 fL (80-100); Monocytes Absolute Auto 900 /uL (0-900); Monocytes Percent Auto 9.1 % (3-14); Neutrophils Absolute Auto 7000 /uL (1500-7000); Neutrophils Percent Auto 70.1 % (50-75); Platelet Count 232 X10^3/uL (150-400); Red Blood Cell Count 4.35 X10^6/uL (4.0-5.2)
[2022-02-28 13:51] LABS: Alanine Aminotransferase 36 IU/L (<35); Albumin 4.2 g/dL (3.5-5.0); Albumin Globulin Ratio 1.4 (1.0-2.8); Alkaline Phosphatase 86 U/L (38-126); Aspartate Aminotransferase 36 IU/L (14-36); BUN Creatinine Ratio 21.5 (6-22); Bilirubin Total 0.6 mg/dL (0.2-1.3); Blood Urea Nitrogen 23 mg/dL (7-17); Calcium 9.4 mg/dL (8.4-10.2); Carbon Dioxide 30 mmol/L (22-32); Chloride 101 mmol/L (98-107); Creatine Kinase 90 U/L (30-135); Estimated Glomerular Filt Rate 55 mL/min (>60); Globulin 2.9 g/dL (1.7-4.1); Glucose 101 mg/dL (80-110); HEMOLYSIS < 15 (0-50); Lipase 48 U/L (23-300); Magnesium 1.8 mg/dL (1.6-2.3); Potassium 3.9 mmol/L (3.4-5.1); Sodium 140 mmol/L (137-145); Total Protein 7.1 g/dL (6.3-8.2)
--- NOTE | 2022-02-28 13:55 | ED_ITS ---
HPI - Extremity Injury (Lower) General Chief Complaint: Extremity Injury, Lower Stated Complaint: swollen rt foot Time Seen by Provider: 02/28/22 13:42 Source: patient Mode of arrival: Ambulatory Limitations: no limitations History of Present Illness HPI Narrative: The patient presents with 2 days of lower extremity swelling. Swelling was in both legs, now left has improved. Her doctor took her off HCTZ 4 days ago. She also has right foot pain. She has burning sensation in the distal right foot. She is having significant difficulty when up and walking due to foot pain. She denies injury. Triage nurse noted warmth in the right distal foot. The patient has no fever, no cough, no URI symptoms. She is not diabetic. She has no numbness or weakness in her feet. She has no difficulty with ambulation. Related Data Home Medications Medication Instructions Recorded Confirmed aspirin 81 mg chewable tablet 81 mg PO QAM 07/26/20 12/23/21 atenolol 25 mg tablet 25 mg PO DAILY 06/25/21 12/23/21 ezetimibe 10 mg tablet 10 mg PO DAILY 06/25/21 12/23/21 levothyroxine 150 mcg tablet 150 mcg PO DAILY 06/25/21 12/23/21 (Synthroid) multivitamin 1 tab PO DAILY #0 06/25/21 12/23/21 omega-3 fatty acids-vitamin E 1 cap PO DAILY 06/25/21 12/23/21 1,000 mg capsule furosemide 20 mg tablet 10 mg PO QAM 07/09/21 12/23/21 apixaban 5 mg tablet (Eliquis) 5 mg PO BID 07/22/21 12/23/21 cholecalciferol (vitamin D3) 50 50 mcg PO DAILY 07/22/21 12/23/21 mcg (2,000 unit) capsule potassium chloride 10 mEq 20 meq PO DAILY 07/22/21 12/23/21 capsule,extended release Previous Rx's Medication Instructions Recorded ondansetron 4 mg disintegrating 4 mg PO Q8H PRN #10 tab 06/24/21 tablet sulfamethoxazole 800 1 tab PO BID 10 Days #20 tab 02/28/22 mg-trimethoprim 160 mg tablet tramadol 50 mg tablet 50 mg PO Q8H PRN #14 tab 02/28/22 Allergies Allergy/AdvReac Type Severity Reaction Status Date / Time lisinopril Allergy Severe Anaphylaxis Verified 12/17/21 14:21 metformin AdvReac Vomiting Verified 12/17/21 14:21 Review of Systems Constitutional Constitutional: Denies body ache(s), Denies fatigue, Denies fever(s) and Denies headache(s) ENT Ears, Nose, Mouth, and Throat: Reports dizziness and Denies headache(s) Comments: No ENT complaints. Cardiovascular Cardiovascular: Denies chest pain, Denies pedal edema, Reports leg edema and Reports dyspnea on exertion Respiratory Respiratory: Denies chest congestion, Denies cough, Denies pain on inspiration and Reports dyspnea on exertion Gastrointestinal Gastrointestinal: Denies heartburn, Denies diarrhea and Denies nausea Integumentary/Breasts Comments: Chronic skin lesions Neurologic Neurologic: Denies confusion, Reports dizziness, Denies headache(s) and Denies memory loss Comments: Brief speech changes. Psychiatric Psychiatric: Denies confusion and Denies memory loss Endocrine Endocrine: Denies fatigue Hematologic/Lymphatic On Anticoagulants: No Patient History Medical History (Updated 02/28/22 @ 16:13 by Kris Dozier MD) Atrial fibrillation Breast cancer Chronic back pain Chronic pancreatitis Depression Facet arthropathy, lumbar Heart murmur HLD (hyperlipidemia) Hypertension Hypothyroidism Lumbar radiculopathy Migraine headache Nose fracture (~06/29/21) Tinnitus UTI (urinary tract infection) Surgical History History of colonoscopy History of hysterectomy Hx of breast surgery Hx of cholecystectomy Hx of oophorectomy Hx of tonsillectomy Family History Father Brain tumor Congestive heart failure Mother Hypertension Stroke Grandfather Stroke Social History household members: spouse Smoking Status: Former smoker alcohol intake: current Smoking Status: Former smoker alcohol intake frequency: a few times a week Alcohol type: wine Substance Use Type: does not use Exam Initial Vital Signs Initial Vital Signs: Vital Signs Temperature 97.7 F 02/28/22 11:31 Pulse Rate 67 02/28/22 11:31 Respiratory Rate 18 02/28/22 11:31 Blood Pressure 151/76 H 02/28/22 11:31 Pulse Oximetry 98 02/28/22 11:31 Const General: cooperative, healthy appearing and No acute distress HENMT Head: normocephalic and atraumatic Resp Auscultation: clear to auscultation bilaterally Cardio Rate: regular rate Rhythm: regular rhythm Heart Sounds: S1 normal, S2 normal, no click, no murmurs and no rubs Pulses: femoral pulses not present GI Inspection: normal to inspection Auscultation: normal bowel sounds Back/Spine/Pelvis Back: No CVA tenderness Skin Other: Erythema to the right distal foot. Neuro General: patient alert, patient awake, patient oriented x3 and no focal motor deficits Extrem Other: 1+ edema both lower extremities. Negative Homans sign. No calf tenderness. Erythema to the distal right foot, distal 1/3 of the foot with warmth. No edema. No skin breaks. Dorsalis pedis pulses are 2+ and symmetric. Capillary refill is intact. Course Course Course Narrative: Patient is treated for cellulitis the right foot. She was given IV Rocephin, as well as sternal Septra DS. She is discharged on Septra DS and tramadol for pain. Orders Ordered: ED Orders 02/28/22 11:39 XR foot RT min 3V Stat 02/28/22 12:57 XR chest 1V Stat EKG-12 Lead Stat 02/28/22 13:16 US periph venous low extrem rt Stat 02/28/22 13:20 Complete Blood Count AUTO DIFF Stat Comprehensive Metabolic Panel Stat D Dimer Stat Lipase Stat Magnesium Stat NT-proBNP (BNP-Adult 18+) Stat Troponin & CK Cardiac Panel Stat Discontinued Medications Ceftriaxone Sodium 1,000 mg/ (Sodium Chloride) 100 mls @ 200 mls/hr IV NOW ONE Stop: 02/28/22 14:00 Last Infusion: 02/28/22 14:48 Dose: 0 mls/hr Documented by: Admin: 02/28/22 14:14 Dose: 200 mls/hr Documented by: MICHAEL Ketorolac Tromethamine (Ketorolac 30 Mg/Ml Vial) 15 mg IV NOW ONE Stop: 02/28/22 14:00 Last Admin: 02/28/22 14:13 Dose: 15 mg Documented by: MICHAEL Lidocaine HCl (Lidocaine 1% (Pf) 5 Ml) 5 ml INJ NOW ONE Stop: 02/28/22 15:43 Last Admin: 02/28/22 15:58 Dose: Not Given Documented by: MICHAEL Trimethoprim/Sulfamethoxazole (Trimeth/Sulfa 160/800 (Ds) Tablet) 1 tab PO NOW ONE Stop: 02/28/22 14:00 Last Admin: 02/28/22 14:14 Dose: 1 tab Documented by: MICHAEL Vital Signs Vital signs: Vital Signs - 8 hr 02/28/22 11:31 02/28/22 13:18 02/28/22 14:18 Temperature 97.7 F Pulse Rate 67 59 L Pulse Rate [Bilateral Dorsalis Pedis] 75 Respiratory Rate 18 18 Blood Pressure 151/76 H 144/69 H Pulse Oximetry 98 98 02/28/22 14:30 02/28/22 15:00 02/28/22 15:30 Temperature Pulse Rate 57 L 57 L 57 L Pulse Rate [Bilateral Dorsalis Pedis] Respiratory Rate 18 18 Blood Pressure 131/59 L 127/61 115/57 L Pulse Oximetry 95 96 98 02/28/22 16:00 02/28/22 16:01 02/28/22 16:35 Temperature Pulse Rate 62 63 77 Pulse Rate [Bilateral Dorsalis Pedis] Respiratory Rate 18 18 Blood Pressure 151/76 H 168/80 H Pulse Oximetry 97 97 98 MDM - Extremity Injury (Lower) Lab Data Result diagrams: 02/28/22 13:20 02/28/22 13:20 Labs: Lab Results 02/28/22 02/28/22 02/28/22 Range/Units 13:20 13:20 13:20 WBC 10.0 (4.5-11.0) X10^3/uL RBC 4.35 (4.0-5.2) X10^6/uL Hgb 13.3 (12.0-16.0) g/dL Hct 39.1 (36-46) % MCV 90.1 (80-100) fL MCH 30.7 (26-34) PG MCHC 34.1 (30-36) % RDW 15.0 H (11.6-14.8) % Plt Count 232 (150-400) X10^3/uL Neut % (Auto) 70.1 (50-75) % Lymph % (Auto) 18.1 L (25-40) % [place] % (Auto) 9.1 (3-14) % Eos % (Auto) 2.0 (2-4) % Baso % (Auto) 0.7 (0-2) % Neut # (Auto) 7000 (9474-1944) /uL Lymph # (Auto) 1800 (8427-8664) /uL [place] # (Auto) 900 (0-900) /uL Eos # (Auto) 200 (0-450) /uL Baso # (Auto) 100 (0-100) /uL D-Dimer < 200 (<230) ng/mL Sodium 140 (137-145) mmol/L Potassium 3.9 (3.4-5.1) mmol/L Chloride 101 (98-107) mmol/L Carbon Dioxide 30 (22-32) mmol/L BUN 23 H (7-17) mg/dL Creatinine 1.07 H (0.52-1.04) mg/dL Estimated GFR 55 L (>60) mL/min BUN/Creatinine Ratio 21.5 (6-22) Glucose 101 (80-110) mg/dL Calcium 9.4 (8.4-10.2) mg/dL Magnesium 1.8 (1.6-2.3) mg/dL Total Bilirubin 0.6 (0.2-1.3) mg/dL AST 36 (14-36) IU/L ALT 36 H (<35) IU/L Alkaline Phosphatase 86 (38-126) U/L Total Creatine Kinase 90 (30-135) U/L CK-MB (CK-2) TNP CK-MB (CK-2) Rel Index TNP Troponin I < 0.012 (0.01-0.034) ng/mL NT-Pro-B Natriuret Pep (<125) pg/mL Total Protein 7.1 (6.3-8.2) g/dL Albumin 4.2 (3.5-5.0) g/dL Globulin 2.9 (1.7-4.1) g/dL Albumin/Globulin Ratio 1.4 (1.0-2.8) Lipase 48 (23-300) U/L / Range/Units 13:20 WBC (4.5-11.0) X10^3/uL RBC (4.0-5.2) X10^6/uL Hgb (12.0-16.0) g/dL Hct (36-46) % MCV (80-100) fL MCH (26-34) PG MCHC (30-36) % RDW (11.6-14.8) % Plt Count (150-400) X10^3/uL Neut % (Auto) (50-75) % Lymph % (Auto) (25-40) % [place] % (Auto) (3-14) % Eos % (Auto) (2-4) % Baso % (Auto) (0-2) % Neut # (Auto) (7708-8957) /uL Lymph # (Auto) (7291-2615) /uL [place]ger # (Auto) (0-900) /uL Eos # (Auto) (0-450) /uL Baso # (Auto) (0-100) /uL D-Dimer (<230) ng/mL Sodium (137-145) mmol/L Potassium (3.4-5.1) mmol/L Chloride (98-107) mmol/L Carbon Dioxide (22-32) mmol/L BUN (7-17) mg/dL Creatinine (0.52-1.04) mg/dL Estimated GFR (>60) mL/min BUN/Creatinine Ratio (6-22) Glucose (80-110) mg/dL Calcium (8.4-10.2) mg/dL Magnesium (1.6-2.3) mg/dL Total Bilirubin (0.2-1.3) mg/dL AST (14-36) IU/L ALT (<35) IU/L Alkaline Phosphatase (38-126) U/L Total Creatine Kinase (30-135) U/L CK-MB (CK-2) CK-MB (CK-2) Rel Index Troponin I (0.01-0.034) ng/mL NT-Pro-B Natriuret Pep 406 H (<125) pg/mL Total Protein (6.3-8.2) g/dL Albumin (3.5-5.0) g/dL Globulin (1.7-4.1) g/dL Albumin/Globulin Ratio (1.0-2.8) Lipase (23-300) U/L Imaging Data Right foot x-ray: Radiologist's Impression: Osteoarthritis. No acute fracture. No osseous lesion. If symptoms and/or clinical suspicion for pathology persist, further assessment with repeat, or advanced imaging (e.g., CT, MRI, or bone scan) may be helpful for further assessment. ? Right leg ultrasound:: Radiologist's Impression: There is a mild amount of deep venous thrombosis seen distal to the knee within the proximal and mid posterior tibial vein. ECG Data Attestation: I personally reviewed and interpreted this ECG as follows: (Sinus bradycardia rate 57 beats per minute. Normal intervals. No ectopy. Nonspecific ST T wave changes.) Discharge Plan Departure Patient Disposition: Home Clinical Impression: Cellulitis of foot, right Activity Restrictions/Additional Instructions: Septra DS, 1 tablet 2 times daily. Apply warm compresses to foot 2-3 times daily until symptoms improve. Tylenol or Advil as needed for pain. Tramadol every 6 hours as needed added pain control. Recheck with your doctor about 1 week. Follow up here tomorrow if symptoms are worsening. Prescriptions: New sulfamethoxazole-trimethoprim 800-160 mg tablet 1 tab PO BID 10 Days Qty: 20 0RF tramadol 50 mg tablet 50 mg PO Q8H PRN (Reason: pain) Qty: 14 0RF No Action aspirin 81 mg Tablet,Chewable 81 mg PO QAM 0RF ondansetron 4 mg tablet,disintegrating 4 mg PO Q8H PRN (Reason: nausea and vomiting) Qty: 10 0RF furosemide 20 mg Tablet 10 mg PO QAM 0RF multivitamin Tablet 1 tab PO DAILY Qty: 0 0RF atenolol 25 mg Tablet 25 mg PO DAILY 0RF levothyroxine [Synthroid] 150 mcg Tablet 150 mcg PO DAILY 0RF ezetimibe 10 mg Tablet 10 mg PO DAILY 0RF omega-3 fatty acids-vitamin E 1,000 mg Capsule 1 cap PO DAILY 0RF potassium chloride 10 mEq capsule, extended release 20 meq PO DAILY 0RF cholecalciferol (vitamin D3) 50 mcg (2,000 unit) capsule 50 mcg PO DAILY 0RF Eliquis 5 mg tablet 5 mg PO BID 0RF Referrals: Lacy Lopez MD [Primary Care Provider] -
[2022-02-28 14:02] LABS: D Dimer < 200 ng/mL (<230)
[2022-02-28 14:03] LABS: Troponin I < 0.012 ng/mL (0.01-0.034)
[2022-02-28] MEDS: KETOROLAC 30 MG/ML VIAL 15 MG IV (14:13)
[2022-02-28] MEDS: cefTRIAXone 1,000 MG in SODIUM CHLORIDE 0.9% 100 ML 200 MG IV (14:14)
[2022-02-28] MEDS: TRIMETH/SULFA 160/800 (DS) TABLET 1 TAB PO (14:14)
[2022-02-28 15:45] LABS: NT-proBNP (BNP-Adult 18+) 406 pg/mL (<125)
== END 2022-02-28 16:36 | disposition home or self-care (01) ==
PROVIDERS: Emergency Provider Emergency Medicine; PCP Internal Medicine
DX: L03.115 Cellulitis of right lower limb (principal); R42 Dizziness and giddiness
CPT/HCPCS: 36415; 71045; 73630; 80053; 82550; 83690; 83735; 83880; 84484; 85025; 85379; 93005; 93971; 96365; 96375; 99284; J0696; J1885

== ENCOUNTER 2022-03-25 08:06 | Emergency (ER) | payer MEDICARE, OTHER, SELFPAY ==
[2021-06-25 17:33] VITALS: BMI 28.1
[2022-03-25 08:25] VITALS: BP 191/97; PULSE 55; RESP 18; TEMP 36.6; O2SAT 99; BMI 28.1
--- NOTE | 2022-03-25 08:38 | ED.BACK ---
HPI - Back Pain/Injury General Chief Complaint: Back Pain/Injury Stated Complaint: Back pain x 2 days Time Seen by Provider: 03/25/22 08:26 Source: patient Mode of arrival: Ambulatory History of Present Illness HPI Narrative: Patient is a 71-year-old female who is here for evaluation of bilateral lower back pain with left being greater than right. She has spent the past couple days traveling and sitting in an airplane has caused her back to her. She has had this in the past. No fevers. No urinary symptoms. No change in bowel habits. No skin rashes. There was not 1 specific incident that caused the discomfort. She is on anticoagulation so has not taken any anti-inflammatories but has tried Tylenol. No radiation down her legs. Related Data Home Medications Medication Instructions Recorded Confirmed aspirin 81 mg chewable tablet 81 mg PO QAM 07/26/20 12/23/21 atenolol 25 mg tablet 25 mg PO DAILY 06/25/21 12/23/21 ezetimibe 10 mg tablet 10 mg PO DAILY 06/25/21 12/23/21 levothyroxine 150 mcg tablet 150 mcg PO DAILY 06/25/21 12/23/21 (Synthroid) multivitamin 1 tab PO DAILY ##0 06/25/21 12/23/21 omega-3 fatty acids-vitamin E 1 cap PO DAILY 06/25/21 12/23/21 1,000 mg capsule furosemide 20 mg tablet 10 mg PO QAM 07/09/21 12/23/21 apixaban 5 mg tablet (Eliquis) 5 mg PO BID 07/22/21 12/23/21 cholecalciferol (vitamin D3) 50 50 mcg PO DAILY 07/22/21 12/23/21 mcg (2,000 unit) capsule potassium chloride 10 mEq 20 meq PO DAILY 07/22/21 12/23/21 capsule,extended release Previous Rx's Medication Instructions Recorded ondansetron 4 mg disintegrating 4 mg PO Q8H PRN nausea and 06/24/21 tablet vomiting #10 tabs tramadol 50 mg tablet 50 mg PO Q8H PRN pain #14 tabs 02/28/22 cyclobenzaprine 10 mg tablet 10 mg PO TID PRN muscle spasm #21 03/25/22 tabs tramadol 50 mg tablet 50 mg PO Q8H PRN pain #20 tabs 03/25/22 Allergies Allergy/AdvReac Type Severity Reaction Status Date / Time lisinopril Allergy Severe Anaphylaxis Verified 03/25/22 08:25 metformin AdvReac Vomiting Verified 03/25/22 08:25 Review of Systems Gastrointestinal Gastrointestinal: Reports system reviewed and no additional complaints, except as documented Genitourinary Genitourinary: Reports system reviewed and no additional complaints, except as documented Musculoskeletal Musculoskeletal: Reports system reviewed and no additional complaints, except as documented Integumentary/Breasts Skin/Breast: Reports system reviewed and no additional complaints, except as documented Hematologic/Lymphatic On Anticoagulants: No Patient History Medical History Atrial fibrillation Breast cancer Chronic back pain Chronic pancreatitis Depression Facet arthropathy, lumbar Heart murmur HLD (hyperlipidemia) Hypertension Hypothyroidism Lumbar radiculopathy Migraine headache Nose fracture (~06/29/21) Tinnitus UTI (urinary tract infection) Surgical History History of colonoscopy History of hysterectomy Hx of breast surgery Hx of cholecystectomy Hx of oophorectomy Hx of tonsillectomy Family History Father Brain tumor Congestive heart failure Mother Hypertension Stroke Grandfather Stroke Social History household members: spouse Smoking Status: Former smoker alcohol intake: current Smoking Status: Former smoker alcohol intake frequency: a few times a week Alcohol type: wine Substance Use Type: does not use Exam Initial Vital Signs Initial Vital Signs: Vital Signs Temperature 97.9 F 03/25/22 08:25 Pulse Rate 55 L 03/25/22 08:25 Respiratory Rate 18 03/25/22 08:25 Blood Pressure 191/97 H 03/25/22 08:25 Pulse Oximetry 99 03/25/22 08:25 Oxygen Delivery Method 03/25/22 08:25 HENNY Head: normal to inspection Resp Effort & Inspection: normal respiratory effort Back/Spine/Pelvis Other: Patient with fairly well felt muscle spasm in the erector spine a/paraspinal muscles bilaterally with left being greater than right. Does correspond to the area where she is having discomfort. Skin General: no rashes or lesions noted Extrem General: normal to inspection Course Vital Signs Vital signs: Vital Signs - 8 hr 06/23/22 08:25 Temperature 97.9 F Pulse Rate 55 L Respiratory Rate 18 Blood Pressure 191/97 H Pulse Oximetry 99 Oxygen Delivery Method Room Air MDM - Back Pain/Injury MDM Narrative Medical decision making narrative: She does have a fairly well felt muscle spasm in her upper lumbar region corresponding to the area where she is having discomfort. There is not 1 specific incident that caused discomfort I have low suspicion for fracture. With feel we can hold on any radiologic studies for now. Low suspicion for cauda equina/abscess/hematoma. Will treat symptomatically. She was given return precautions. She expressed understanding and agreement. Discharge Plan Departure Patient Disposition: Home Clinical Impression: Strain of lumbar paraspinal muscle Instructions: DI for Muscle Strain Activity Restrictions/Additional Instructions: You can continue with Tylenol for discomfort. You can also try other conservative measures such as heat/ice/massage and stretching. Use the medications as directed. They can make you drowsy so be careful if your taking them to avoid falling. Contact your primary doctor for follow-up. Continue the rest of your medications as directed. Prescriptions: New cyclobenzaprine 10 mg tablet 10 mg PO TID PRN (Reason: muscle spasm) Qty: 21 0RF tramadol 50 mg tablet 50 mg PO Q8H PRN (Reason: pain) Qty: 20 0RF No Action aspirin 81 mg Tablet,Chewable 81 mg PO QAM ondansetron 4 mg tablet,disintegrating 4 mg PO Q8H PRN (Reason: nausea and vomiting) Qty: 10 0RF furosemide 20 mg Tablet 10 mg PO QAM multivitamin Tablet 1 tab PO DAILY Qty: 0 atenolol 25 mg Tablet 25 mg PO DAILY levothyroxine [Synthroid] 150 mcg Tablet 150 mcg PO DAILY ezetimibe 10 mg Tablet 10 mg PO DAILY omega-3 fatty acids-vitamin E 1,000 mg Capsule 1 cap PO DAILY tramadol 50 mg tablet 50 mg PO Q8H PRN (Reason: pain) Qty: 14 0RF potassium chloride 10 mEq capsule, extended release 20 meq PO DAILY cholecalciferol (vitamin D3) 50 mcg (2,000 unit) capsule 50 mcg PO DAILY Eliquis 5 mg tablet 5 mg PO BID Referrals: Lacy Lopez MD [Primary Care Provider] -
[2022-03-25] MEDS: CYCLOBENZAPRINE 10 MG TABLET PO (08:53)
[2022-03-25 08:54] VITALS: BP 163/99; PULSE 60; RESP 20; O2SAT 99
== END 2022-03-25 08:56 | disposition home or self-care (01) ==
PROVIDERS: Emergency Provider Emergency Medicine; PCP Internal Medicine
DX: S39.012A Strain of muscle, fascia and tendon of lower back, initial encounter (principal)
CPT/HCPCS: 99283

== ENCOUNTER → 2022-03-26 14:50 | Outpatient (CLI) | payer MEDICARE, OTHER, SELFPAY ==
[2021-06-25 17:33] VITALS: BMI 28.1
--- NOTE | 2022-03-26 | DI.US.S_ITS ---
PROCEDURE: US [facility] VENOUS LOW EXTREM RT INDICATIONS: Follow up on thrombosis of right calf TECHNIQUE: Real-time imaging, as well as color and pulse Doppler interrogation, were performed of the lower extremity deep veins from the inguinal ligament to the popliteal fossa. COMPARISON: [facility], , [facility] VENOUS LOW EXTREM RT, 02/28/2022, 14:28. FINDINGS: The common femoral, femoral and popliteal veins are normally compressible, and free of intraluminal thrombus. Color and pulse Doppler demonstrate normal phasic intraluminal flow. There is normal augmentation response to distal compression maneuver. Calf veins are difficult to visualize. There are paired proximal posterior tibial veins which demonstrate color flow. There is a single mid and distal posterior tibial vein raising the possibility of persistent or chronic occlusion of the other mid to distal vein segment. Posterior tibial vein in the mid to distal calf is patent. There is flow within peroneal veins. IMPRESSION: 1. Possible chronic or persistent calf thrombus of one of the paired posterior tibial veins in the mid to distal segment. 2. Proximal posterior tibial vein segments are now patent. 3. No DVT in the right lower extremity. Dictated by: Elizabeth Parker M.D. on 03/31/2022 at 17:06 Approved by: Elizabeth Parker M.D. on 03/31/2022 at 17:17
== END ==
PROVIDERS: PCP Internal Medicine; Referring Provider Family Medicine; Visit Provider Family Medicine
DX: I82.461 Acute embolism and thrombosis of right calf muscular vein (principal); Z79.01 Long term (current) use of anticoagulants
CPT/HCPCS: 93971

== ENCOUNTER 2022-04-02 09:23 | Emergency (ER) | payer MEDICARE, OTHER, SELFPAY ==
[2021-06-25 17:33] VITALS: BMI 28.1
[2022-04-02 09:32] VITALS: BP 170/86; PULSE 81; RESP 18; TEMP 36.6; O2SAT 98; BMI 27.3
--- NOTE | 2022-04-02 10:21 | ED_ITS ---
HPI - Back Pain/Injury General Chief Complaint: Back Pain/Injury Stated Complaint: Lower back pain for ten days Time Seen by Provider: 04/02/22 09:34 Source: patient History of Present Illness HPI Narrative: This 71-year-old woman has chronic back pain and has had an exacerbation of her pain over the past few weeks. She was seen in the emergency department relatively recently and prescribed tramadol and muscle relaxers which she has not noticed any significant improvement with this treatment. She denies incontinence of stool or urine. She denies any new trauma. She denies weakness in her lower extremities. She does say the pain radiates to her lower e xtremities. She denies dysuria urgency and frequency she denies other illness such as abdominal pain chest pain or any other symptoms of infection. Related Data Home Medications Medication Instructions Recorded Confirmed aspirin 81 mg chewable tablet 81 mg PO QAM 07/26/20 12/23/21 atenolol 25 mg tablet 25 mg PO DAILY 06/25/21 12/23/21 ezetimibe 10 mg tablet 10 mg PO DAILY 06/25/21 12/23/21 levothyroxine 150 mcg tablet 150 mcg PO DAILY 06/25/21 12/23/21 (Synthroid) multivitamin 1 tab PO DAILY ##0 06/25/21 12/23/21 omega-3 fatty acids-vitamin E 1 cap PO DAILY 06/25/21 12/23/21 1,000 mg capsule furosemide 20 mg tablet 10 mg PO QAM 07/09/21 12/23/21 apixaban 5 mg tablet (Eliquis) 5 mg PO BID 07/22/21 12/23/21 cholecalciferol (vitamin D3) 50 50 mcg PO DAILY 07/22/21 12/23/21 mcg (2,000 unit) capsule potassium chloride 10 mEq 20 meq PO DAILY 07/22/21 12/23/21 capsule,extended release Previous Rx's Medication Instructions Recorded ondansetron 4 mg disintegrating 4 mg PO Q8H PRN nausea and 06/24/21 tablet vomiting #10 tabs tramadol 50 mg tablet 50 mg PO Q8H PRN pain #14 tabs 02/28/22 cyclobenzaprine 10 mg tablet 10 mg PO TID PRN muscle spasm #21 03/25/22 tabs tramadol 50 mg tablet 50 mg PO Q8H PRN pain #20 tabs 03/25/22 dexamethasone 4 mg tablet 4 mg PO DAILY #4 tabs 04/02/22 Allergies Allergy/AdvReac Type Severity Reaction Status Date / Time lisinopril Allergy Severe Anaphylaxis Verified 04/02/22 09:36 metformin AdvReac Vomiting Verified 04/02/22 09:36 Review of Systems Review of Systems Narrative: Complete review of systems is negative other than as noted in the HPI. Patient History Medical History Atrial fibrillation Breast cancer Chronic back pain Chronic pancreatitis Depression Facet arthropathy, lumbar Heart murmur HLD (hyperlipidemia) Hypertension Hypothyroidism Lumbar radiculopathy Migraine headache Nose fracture (~06/29/21) Tinnitus UTI (urinary tract infection) Surgical History History of colonoscopy History of hysterectomy Hx of breast surgery Hx of cholecystectomy Hx of oophorectomy Hx of tonsillectomy Family History Father Brain tumor Congestive heart failure Mother Hypertension Stroke Grandfather Stroke Social History household members: spouse Smoking Status: Former smoker alcohol intake: current Smoking Status: Former smoker alcohol intake frequency: a few times a week Alcohol type: wine Substance Use Type: does not use Exam Narrative Exam Narrative: GENERAL: Alert, cooperative and in no distress. HEAD: Atraumatic. Normocephalic. EYES: Sclera are clear without icterus. Extraocular movements are full. ENT: No rhinorrhea. Oropharynx is moist. Mouth exam is benign. NECK: Supple. Full range of motion. CARDIOVASCULAR: Normal rate and rhythm without murmur gallop or rub. RESPIRATORY: Clear to auscultation. Breath sounds equal bilaterally. No wheezes, rales, or rhonchi. GASTROINTESTINAL: Abdomen soft, non-tender, nondistended. EXTREMITIES: No edema, full range of motion. No obvious trauma. BACK: Normal inspection, no CVA tenderness. NEURO: Nonfocal examination, normal speech, normal gait. Normal dorsiflexion and plantar flexion at the ankles. Modified straight leg testing is negative. SKIN: No rash or erythema of visible areas PSYCH: Normally oriented. Normal range of affect. Appropriate behavior Initial Vital Signs Initial Vital Signs: Vital Signs Temperature 97.8 F 04/02/22 09:32 Pulse Rate 81 04/02/22 09:32 Respiratory Rate 18 04/02/22 09:32 Blood Pressure 170/86 H 04/02/22 09:32 Pulse Oximetry 98 04/02/22 09:32 Oxygen Delivery Method 04/02/22 09:32 Course Orders Ordered: Discontinued Medications Dexamethasone (Dexamethasone 4 Mg Tablet) 4 mg PO NOW ONE Stop: 04/02/22 10:18 Vital Signs Vital signs: Vital Signs - 8 hr 04/02/22 09:32 Temperature 97.8 F Pulse Rate 81 Respiratory Rate 18 Blood Pressure 170/86 H Pulse Oximetry 98 Oxygen Delivery Method Room Air MDM - Back Pain/Injury MDM Narrative Medical decision making narrative: No acute cord compression is suspected. I do not suspect a epidural abscess. I think conservative treatment with steroid medications and outpatient follow-up is appropriate. Do not think ongoing opioid prescribing is appropriate. Discharge Plan Departure Patient Disposition: Home Clinical Impression: Strain of lumbar region, Sciatica Instructions: DI for Back Pain With Sciatica Activity Restrictions/Additional Instructions: Thank you for interesting us with her care today. I do not suspect a dangerous nerve impingement or spinal cord compression or infection in your spine today. I recommend dexamethasone 4 mg daily for the next 5 days. This strong anti- inflammatory steroid should improve what ever inflammatory process is causing the compression in your back that is causing the pain. I also recommend Tylenol 1000 mg every 6 hours. I recommend follow-up with Dr. Lopez as soon as you are able to get in with her. I recommended gentle activity throughout the day. Keep yourself well hydrated as well. Follow-up right away for new incontinence or lower extremity weakness or fevers associated with worsening back pain. Prescriptions: New dexamethasone 4 mg tablet 4 mg PO DAILY Qty: 4 0RF No Action aspirin 81 mg Tablet,Chewable 81 mg PO QAM ondansetron 4 mg tablet,disintegrating 4 mg PO Q8H PRN (Reason: nausea and vomiting) Qty: 10 0RF furosemide 20 mg Tablet 10 mg PO QAM cyclobenzaprine 10 mg tablet 10 mg PO TID PRN (Reason: muscle spasm) Qty: 21 0RF tramadol 50 mg tablet 50 mg PO Q8H PRN (Reason: pain) Qty: 20 0RF multivitamin Tablet 1 tab PO DAILY Qty: 0 atenolol 25 mg Tablet 25 mg PO DAILY levothyroxine [Synthroid] 150 mcg Tablet 150 mcg PO DAILY ezetimibe 10 mg Tablet 10 mg PO DAILY omega-3 fatty acids-vitamin E 1,000 mg Capsule 1 cap PO DAILY tramadol 50 mg tablet 50 mg PO Q8H PRN (Reason: pain) Qty: 14 0RF potassium chloride 10 mEq capsule, extended release 20 meq PO DAILY cholecalciferol (vitamin D3) 50 mcg (2,000 unit) capsule 50 mcg PO DAILY Eliquis 5 mg tablet 5 mg PO BID Referrals: Lacy Lopez MD [Primary Care Provider] -
[2022-04-02] MEDS: dexAMETHasone 4 MG TABLET PO (10:27)
== END 2022-04-02 10:27 | disposition home or self-care (01) ==
PROVIDERS: Emergency Provider Family Medicine Addiction Medicine; PCP Internal Medicine
DX: S39.012A Strain of muscle, fascia and tendon of lower back, initial encounter (principal); M54.30 Sciatica, unspecified side
CPT/HCPCS: 99283

== ENCOUNTER → 2022-05-24 11:22 | Outpatient (CLI) | payer MEDICARE, OTHER, SELFPAY ==
[2021-06-25 17:33] VITALS: BMI 28.1
== END ==
PROVIDERS: PCP Internal Medicine; Referring Provider Internal Medicine; Visit Provider Internal Medicine
DX: Z78.0 Asymptomatic menopausal state (principal); Z13.820 Encounter for screening for osteoporosis; Z85.3 Personal history of malignant neoplasm of breast; Z90.710 Acquired absence of both cervix and uterus
CPT/HCPCS: 77080

== ENCOUNTER 2022-05-27 17:50 | Emergency (ER) | payer MEDICARE, OTHER, SELFPAY ==
[2021-06-25 17:33] VITALS: BMI 28.1
[2022-05-27] VITALS (8 sets, daily range): BP systolic 169–191; BP diastolic 80–82; PULSE 66–83; RESP 26; TEMP 36.6; O2SAT 95–100; BMI 28.8
[2022-05-27] MEDS: SODIUM CHLORIDE 0.9% 1,000 ML 1000 ML IV (18:31)
[2022-05-27] MEDS: ONDANSETRON 4 MG/2 ML INJ IV (18:32)
[2022-05-27] MEDS: KETOROLAC 30 MG/ML VIAL 15 MG IV (18:32)
--- NOTE | 2022-05-27 19:33 | ED.HA ---
HPI - Headache General Chief Complaint: Headache Stated Complaint: Migraine Time Seen by Provider: 05/27/22 18:17 Mode of arrival: Ambulatory History of Present Illness HPI Narrative: Patient here with spouse complains of headache that started at 3:00 a.m. today. She states this is the same headache she is had many times in the past. This is not new. She is had numerous headaches recently. Patient received Toradol and Dilaudid and IV fluids with resolution of her headache. Patient also seen here August 05, 2021 for the same and had the same medications again. Patient seen here August 20 and 2019 for the same with seem treatment as well. No slurred speech facial droop. No numbness tingling or weakness to the face hands or feet. No ataxia. No confusion. Pain is bilateral frontal. Does not radiate. It is sharp and pressure. Is light sensitive and sound sensitive. Has had nausea. No ataxia. Most recent CT scan of the head was December 10, 2021. Please see report below. Patient is on Eliquis for atrial fibrillation. Patient states this headache is not any different. [place] [address] CT Scan Report Signed Patient: Jackie Javed MR#: [id number] : 1950 Acct:[id number] Age/Sex: 71 / F Date of Service: 12/10/21 Loc: Accession Number: [id number] ?? Procedure: CT head/brain wo con Ordering Provider: Sandra Perales D.O. PROCEDURE:? CT HEAD/BRAIN WO CON ? INDICATIONS:? hit head vomiting ? TECHNIQUE:? Noncontrast 4.5 mm thick angled axial sections acquired from the foramen magnum to the vertex, with coronal and sagittal reformats.? For radiation dose reduction, the following was used:? automated exposure control, adjustment of mA and/or kV according to patient size.? ? COMPARISON:? None. ? FINDINGS:? Image quality:? Excellent.? ? CSF spaces:? Basal cisterns are patent.? No extra-axial fluid collections.? Ventricles are normal in size and shape.? ? Brain:? Mild global cerebral volume loss.? Chronic microvascular ischemic changes.? No midline shift.? No intracranial masses or hemorrhage.? Moy-white matter interface is normal.? ? Skull and face:? Calvarium and visualized facial bones are intact, without suspicious lesions.? ? Sinuses:? Visualized sinuses and mastoids are clear.? ? IMPRESSION:? No acute intracranial abnormality.? Mild global cerebral volume loss and chronic microvascular ischemic changes. ? ? Dictated by: Papi Terrazas M.D. on 12/10/2021 at 13:10 ? ? Approved by: Papi Terrazas M.D. on 12/10/2021 at 13:11 ? Related Data Home Medications Medication Instructions Recorded Confirmed aspirin 81 mg chewable tablet 81 mg PO QAM 07/26/20 12/23/21 atenolol 25 mg tablet 25 mg PO DAILY 06/25/21 12/23/21 ezetimibe 10 mg tablet 10 mg PO DAILY 06/25/21 12/23/21 levothyroxine 150 mcg tablet 150 mcg PO DAILY 06/25/21 12/23/21 (Synthroid) multivitamin 1 tab PO DAILY ##0 06/25/21 12/23/21 omega-3 fatty acids-vitamin E 1 cap PO DAILY 06/25/21 12/23/21 1,000 mg capsule furosemide 20 mg tablet 10 mg PO QAM 07/09/21 12/23/21 apixaban 5 mg tablet (Eliquis) 5 mg PO BID 07/22/21 12/23/21 cholecalciferol (vitamin D3) 50 50 mcg PO DAILY 07/22/21 12/23/21 mcg (2,000 unit) capsule potassium chloride 10 mEq 20 meq PO DAILY 07/22/21 12/23/21 capsule,extended release Previous Rx's Medication Instructions Recorded ondansetron 4 mg disintegrating 4 mg PO Q8H PRN nausea and 06/24/21 tablet vomiting #10 tabs tramadol 50 mg tablet 50 mg PO Q8H PRN pain #14 tabs 02/28/22 cyclobenzaprine 10 mg tablet 10 mg PO TID PRN muscle spasm #21 03/25/22 tabs tramadol 50 mg tablet 50 mg PO Q8H PRN pain #20 tabs 03/25/22 dexamethasone 4 mg tablet 4 mg PO DAILY #4 tabs 04/02/22 Allergies Allergy/AdvReac Type Severity Reaction Status Date / Time lisinopril Allergy Severe Anaphylaxis Verified 04/02/22 09:36 metformin AdvReac Vomiting Verified 04/02/22 09:36 Review of Systems Review of Systems Narrative: GENERAL: Denies chills, fatigue, malaise, fever, sweats. HEENT: Denies sinus pain, ear pain, sore throat RESPIRATORY: Denies dyspnea, cough CARDIOVASCULAR: Denies chest pain, palpitations GASTROINTESTINAL: Positive nausea, negative vomiting, abdominal pain : Denies dysuria, frequency, hematuria MUSCULOSKELETAL: denies muscle or bony pain SKIN: Denies rash, skin lesions NEUROLOGIC: Denies weakness, numbness, positive headache, negative syncope, negative slurred speech or facial droop ROS Unobtainable: All systems reviewed & are unremarkable except as noted in HPI and below Patient History Medical History Atrial fibrillation Breast cancer Chronic back pain Chronic pancreatitis Depression Facet arthropathy, lumbar Heart murmur HLD (hyperlipidemia) Hypertension Hypothyroidism Lumbar radiculopathy Migraine headache Nose fracture (~06/29/21) Tinnitus UTI (urinary tract infection) Surgical History History of colonoscopy History of hysterectomy Hx of breast surgery Hx of cholecystectomy Hx of oophorectomy Hx of tonsillectomy Family History Father Brain tumor Congestive heart failure Mother Hypertension Stroke Grandfather Stroke Social History household members: spouse Smoking Status: Former smoker alcohol intake: current Smoking Status: Former smoker alcohol intake frequency: a few times a week Alcohol type: wine Substance Use Type: does not use Exam Narrative Exam Narrative: GENERAL: in no distress, not toxic not dyspneic HEAD: Normocephalic. EYES: Pupils equal round No scleral icterus. No papilledema no photophobia ENT: Mucous membranes moist. NECK: Trachea midline. CARDIOVASCULAR: Regular rate and rhythm without murmurs RESPIRATORY: Clear to auscultation. Breath sounds equal bilaterally. No wheezes, rales, or rhonchi. GASTROINTESTINAL: Abdomen soft, non-tender EXTREMITIES: No gross deformities. BACK: No flank tenderness. NEURO: AOx4. Clear speech no facial droop. ?Light touch intact to bilateral face hands and feet. ?Strong equal [employer] officer bilaterally and ankle flexion hip flexion and knee flexion. ?Strong bilateral patellar reflexes. ?No pronator drift. ? SKIN: Warm and dry PSYCH: Not anxious, is cooperative Initial Vital Signs Initial Vital Signs: Vital Signs Pulse Rate 83 05/27/22 18:03 Pulse Oximetry 97 05/27/22 18:03 Course Course Course Narrative: No new issues during course of stay Orders Ordered: Discontinued Medications Hydromorphone HCl (Hydromorphone 1 Mg Inj) 1 mg IV NOW ONE Stop: 05/27/22 19:41 Last Admin: 05/27/22 19:42 Dose: 1 mg Documented By: NR Sodium Chloride (Normal Saline 0.9%) 1,000 mls @ 1,000 mls/hr IV BOLUS ONE Stop: 05/27/22 19:17 Last Infusion: 05/27/22 19:30 Dose: 0 mls/hr Documented By: Admin: 05/27/22 18:31 Dose: 1,000 mls/hr Documented By: NR Ketorolac Tromethamine (Ketorolac 30 Mg/Ml Vial) 15 mg IV NOW ONE Stop: 05/27/22 18:19 Last Admin: 05/27/22 18:32 Dose: 15 mg Documented By: NR Ondansetron HCl (Ondansetron 4 Mg/2 Ml Inj) 4 mg IV NOW ONE Stop: 05/27/22 18:19 Last Admin: 05/27/22 18:32 Dose: 4 mg Documented By: NR Reevaluation(s) Reevaluation #1: Patient and desire discharge home. Patient states complete resolution of her headache. No new complaints. They agree with treatment plan and return precautions reviewed with them. Time: 20:11 Vital Signs Vital signs: Vital Signs - 8 hr 05/27/22 18:05 05/27/22 18:03 05/27/22 18:04 Temperature 97.9 F Pulse Rate 82 83 Respiratory Rate 26 H Blood Pressure 169/80 H 169/80 H Pulse Oximetry 97 97 Oxygen Delivery Method Room Air 05/27/22 18:04 05/27/22 18:30 05/27/22 19:00 Temperature Pulse Rate 83 71 66 Respiratory Rate Blood Pressure Pulse Oximetry 96 97 98 Oxygen Delivery Method 05/27/22 19:30 05/27/22 20:00 05/27/22 20:01 Temperature Pulse Rate 75 68 Respiratory Rate Blood Pressure 191/82 H Pulse Oximetry 100 95 Oxygen Delivery Method 05/27/22 20:01 Temperature Pulse Rate 74 Respiratory Rate Blood Pressure Pulse Oximetry 96 Oxygen Delivery Method MDM - Headache Differential Diagnosis Differential diagnosis: Likely migraine, tension headache and headache MDM Narrative Medical decision making narrative: Appropriate for discharge home. Patient not requiring blood work or imaging. Patient has exact same headache as in the past year. Nothing different no change in pattern intensity or location. Resolved with her typical combination of medications. Return precautions reviewed with her. Recommended follow up with primary care for maintenance migraine medication and abortive migraine medication or referral to Neurology. Not toxic at discharge. Patient and requesting for discharge home Discharge Plan Departure Patient Disposition: Home Clinical Impression: Migraine Instructions: DI for Migraine Activity Restrictions/Additional Instructions: No driving or operating machinery tonight. Please see your family doctor for referral to Neurology or to start maintenance migraine medication or abortive migraine medication. Return if worsening questions or concerns. Prescriptions: No Action aspirin 81 mg Tablet,Chewable 81 mg PO QAM ondansetron 4 mg tablet,disintegrating 4 mg PO Q8H PRN (Reason: nausea and vomiting) Qty: 10 0RF furosemide 20 mg Tablet 10 mg PO QAM cyclobenzaprine 10 mg tablet 10 mg PO TID PRN (Reason: muscle spasm) Qty: 21 0RF tramadol 50 mg tablet 50 mg PO Q8H PRN (Reason: pain) Qty: 20 0RF dexamethasone 4 mg tablet 4 mg PO DAILY Qty: 4 0RF multivitamin Tablet 1 tab PO DAILY Qty: 0 atenolol 25 mg Tablet 25 mg PO DAILY levothyroxine [Synthroid] 150 mcg Tablet 150 mcg PO DAILY ezetimibe 10 mg Tablet 10 mg PO DAILY omega-3 fatty acids-vitamin E 1,000 mg Capsule 1 cap PO DAILY tramadol 50 mg tablet 50 mg PO Q8H PRN (Reason: pain) Qty: 14 0RF potassium chloride 10 mEq capsule, extended release 20 meq PO DAILY cholecalciferol (vitamin D3) 50 mcg (2,000 unit) capsule 50 mcg PO DAILY Eliquis 5 mg tablet 5 mg PO BID Referrals: Lacy Lopez MD [Primary Care Provider] - Visit Report Forms: Patient Portal/API
[2022-05-27] MEDS: HYDROMORPHONE 1 MG INJ IV (19:42)
== END 2022-05-27 20:13 | disposition home or self-care (01) ==
PROVIDERS: Emergency Provider Emergency Medicine; PCP Internal Medicine
DX: G43.909 Migraine, unspecified, not intractable, without status migrainosus (principal)
CPT/HCPCS: 36415; 96361; 96374; 96375; 99284; J1170; J1885; J2405

== ENCOUNTER 2022-05-28 11:42 | Emergency (ER) | payer MEDICARE, OTHER, SELFPAY ==
[2021-06-25 17:33] VITALS: BMI 28.1
[2022-05-28] VITALS (10 sets, daily range): BP systolic 156–184; BP diastolic 75–91; PULSE 59–77; RESP 16–18; TEMP 36.3; O2SAT 97–100; BMI 30.6
--- NOTE | 2022-05-28 13:10 | ED_ITS ---
HPI - Headache <Raghu Sosa PA-C - Last Filed: 05/28/22 20:24> General Chief Complaint: Headache Stated Complaint: Migraines Time Seen by Provider: 05/28/22 11:58 Mode of arrival: Family Vehicle History of Present Illness HPI Narrative: Patient is a 71-year-old female presents to the emergency room today with complaint of migraine headache. Patient states the migraine headache started about 6:00 a.m. this morning. Patient also admits to having the exact same type of migraine yesterday morning. Patient states she was treated in the emergency room last evening with the allotted to relieve her migraine. She would now like the same treatment to marylou the migraine. Denies any neck pain changes in vision changes in neurological status or any other neurological or meningeal concerns. Describes the pain as pain behind the right eye does not radiate. Related Data Home Medications Medication Instructions Recorded Confirmed aspirin 81 mg chewable tablet 81 mg PO QAM 07/26/20 12/23/21 atenolol 25 mg tablet 25 mg PO DAILY 06/25/21 12/23/21 ezetimibe 10 mg tablet 10 mg PO DAILY 06/25/21 12/23/21 levothyroxine 150 mcg tablet 150 mcg PO DAILY 06/25/21 12/23/21 (Synthroid) multivitamin 1 tab PO DAILY ##0 06/25/21 12/23/21 omega-3 fatty acids-vitamin E 1 cap PO DAILY 06/25/21 12/23/21 1,000 mg capsule furosemide 20 mg tablet 10 mg PO QAM 07/09/21 12/23/21 apixaban 5 mg tablet (Eliquis) 5 mg PO BID 07/22/21 12/23/21 cholecalciferol (vitamin D3) 50 50 mcg PO DAILY 07/22/21 12/23/21 mcg (2,000 unit) capsule potassium chloride 10 mEq 20 meq PO DAILY 07/22/21 12/23/21 capsule,extended release Previous Rx's Medication Instructions Recorded ondansetron 4 mg disintegrating 4 mg PO Q8H PRN nausea and 06/24/21 tablet vomiting #10 tabs tramadol 50 mg tablet 50 mg PO Q8H PRN pain #14 tabs 02/28/22 cyclobenzaprine 10 mg tablet 10 mg PO TID PRN muscle spasm #21 03/25/22 tabs tramadol 50 mg tablet 50 mg PO Q8H PRN pain #20 tabs 03/25/22 dexamethasone 4 mg tablet 4 mg PO DAILY #4 tabs 04/02/22 Allergies Allergy/AdvReac Type Severity Reaction Status Date / Time lisinopril Allergy Severe Anaphylaxis Verified 04/02/22 09:36 metformin AdvReac Vomiting Verified 04/02/22 09:36 Review of Systems <Raghu Sosa PA-C - Last Filed: 05/28/22 20:24> Review of Systems Narrative: R.O.S.: General: No fever, chills or fatigue. Cardiovascular: No chest pain or palpitations Respiratory: No S.O.B. HEENT: No congestion, ear pain, rhinorrhea, sore throat or tinnitus Gastrointestinal: No nausea or vomiting Skin: No rash or associated abnormalities Neurological: Headache migraine Patient History <KAT Limon Last Filed: 05/28/22 20:24> Medical History Atrial fibrillation Breast cancer Chronic back pain Chronic pancreatitis Depression Facet arthropathy, lumbar Heart murmur HLD (hyperlipidemia) Hypertension Hypothyroidism Lumbar radiculopathy Migraine headache Nose fracture (~06/29/21) Tinnitus UTI (urinary tract infection) Surgical History History of colonoscopy History of hysterectomy Hx of breast surgery Hx of cholecystectomy Hx of oophorectomy Hx of tonsillectomy Family History Father Brain tumor Congestive heart failure Mother Hypertension Stroke Grandfather Stroke Social History household members: spouse Smoking Status: Former smoker alcohol intake: current Smoking Status: Former smoker alcohol intake frequency: a few times a week Alcohol type: wine Substance Use Type: does not use Exam <KAT Limon Last Filed: 05/28/22 20:24> Narrative Exam Narrative: Physical Exam: ? General: normal appearance, well developed, well nourished, alert, and awake. Not in acute distress. ? Head: Normocephalic, no lesions. Chest: Lungs CTAB, no rales, rhonchi or wheezes. ?? Heart: RRR, no murmurs, rubs or gallops. Eyes: PERRLA, EOM's full, conjunctivae clear. ? Neuro: Physiological, no localizing findings, CN3-12 intact. ?? Extremities: Warm, well perfused, FROM, no deformities, no edema. ?? Skin: Normal, no rashes, no lesions noted. ?? PSYCHIATRIC: Awake alert and oriented and in mild distress. Initial Vital Signs Initial Vital Signs: Vital Signs Temperature 97.3 F L 05/28/22 11:59 Pulse Rate 69 05/28/22 11:59 Respiratory Rate 18 05/28/22 11:59 Blood Pressure 184/84 H 05/28/22 11:59 Pulse Oximetry 97 05/28/22 11:59 Oxygen Delivery Method 05/28/22 11:59 <Lita Urbina DO - Last Filed: 05/29/22 08:02> Initial Vital Signs Initial Vital Signs: Vital Signs Temperature 97.3 F L 05/28/22 11:59 Pulse Rate 69 05/28/22 11:59 Respiratory Rate 18 05/28/22 11:59 Blood Pressure 184/84 H 05/28/22 11:59 Pulse Oximetry 97 05/28/22 11:59 Oxygen Delivery Method 05/28/22 11:59 Course <Raghu Sosa PA-C - Last Filed: 05/28/22 20:24> Orders Ordered: Discontinued Medications Hydromorphone HCl (Hydromorphone 1 Mg Inj) 1 mg IV NOW ONE Stop: 05/28/22 13:55 Last Admin: 05/28/22 13:58 Dose: 1 mg Documented By: VARUN Sodium Chloride (Normal Saline 0.9%) 1,000 mls @ 1,000 mls/hr IV BOLUS ONE Stop: 05/28/22 14:52 Last Infusion: 05/28/22 15:20 Dose: 0 mls/hr Documented By: Admin: 05/28/22 13:58 Dose: 1,000 mls/hr Documented By: VARUN Ondansetron HCl (Ondansetron 4 Mg/2 Ml Inj) 4 mg IV NOW ONE Stop: 05/28/22 13:55 Last Admin: 05/28/22 13:58 Dose: 4 mg Documented By: VARUN Vital Signs Vital signs: Vital Signs - 8 hr 05/28/22 12:30 05/28/22 13:00 05/28/22 13:35 Pulse Rate 62 63 68 Respiratory Rate Blood Pressure Pulse Oximetry 97 98 97 05/28/22 14:00 05/28/22 14:15 05/28/22 14:15 Pulse Rate 61 73 Respiratory Rate Blood Pressure 177/91 H Pulse Oximetry 100 98 05/28/22 14:30 05/28/22 14:30 05/28/22 15:00 Pulse Rate 75 77 Respiratory Rate Blood Pressure 172/80 H Pulse Oximetry 99 100 05/28/22 15:30 05/28/22 15:30 Pulse Rate 59 L Respiratory Rate 16 Blood Pressure 156/75 H Pulse Oximetry 99 <Lita Urbina DO - Last Filed: 05/29/22 08:02> Orders Ordered: Discontinued Medications Hydromorphone HCl (Hydromorphone 1 Mg Inj) 1 mg IV NOW ONE Stop: 05/28/22 13:55 Last Admin: 05/28/22 13:58 Dose: 1 mg Documented By: VARUN Sodium Chloride (Normal Saline 0.9%) 1,000 mls @ 1,000 mls/hr IV BOLUS ONE Stop: 05/28/22 14:52 Last Infusion: 05/28/22 15:20 Dose: 0 mls/hr Documented By: Admin: 05/28/22 13:58 Dose: 1,000 mls/hr Documented By: VARUN Ondansetron HCl (Ondansetron 4 Mg/2 Ml Inj) 4 mg IV NOW ONE Stop: 05/28/22 13:55 Last Admin: 05/28/22 13:58 Dose: 4 mg Documented By: VARUN Vital Signs Vital signs: Vital Signs - 8 hr 05/28/22 12:30 05/28/22 13:00 05/28/22 13:35 Pulse Rate 62 63 68 Respiratory Rate Blood Pressure Pulse Oximetry 97 98 97 05/28/22 14:00 05/28/22 14:15 05/28/22 14:15 Pulse Rate 61 73 Respiratory Rate Blood Pressure 177/91 H Pulse Oximetry 100 98 05/28/22 14:30 05/28/22 14:30 05/28/22 15:00 Pulse Rate 75 77 Respiratory Rate Blood Pressure 172/80 H Pulse Oximetry 99 100 05/28/22 15:30 05/28/22 15:30 Pulse Rate 59 L Respiratory Rate 16 Blood Pressure 156/75 H Pulse Oximetry 99 MDM - Headache <Raghu Sosa PA-C - Last Filed: 05/28/22 20:24> Lab Data Labs: Lab Results 05/28/22 Range/Units 13:30 Urine RBC None seen (0-5/HPF) Urine WBC 1-5/hpf (0-5/HPF) Ur Squamous Epith Cells 5-10 /hpf H (0-5/HPF) Urine Bacteria None seen (None) Ur Culture Indicated? Culture not indicate Urine Dip Bedside Urine Glucose Negative Bedside Urine Bilirubin - Negative Bedside Urine Ketone - Negative Urine Specific [place] 1.025 Bedside Urine Occult Blood - Negative Bedside Urine pH 6.0 Bedside Urine Protein - Negative Bedside Urine Urobilinogen - Negative Bedside Urine Nitrite - Negative Bedside Urine Leukocytes + [address] scan - head: Radiologist's Impression: PROCEDURE:? CT HEAD/BRAIN WO CON ? INDICATIONS:? hit head vomiting ? TECHNIQUE:? Noncontrast 4.5 mm thick angled axial sections acquired from the foramen magnum to the vertex, with coronal and sagittal reformats.? For radiation dose reduction, the following was used:? automated exposure control, adjustment of mA and/or kV according to patient size.? ? COMPARISON:? None. ? FINDINGS:? Image quality:? Excellent.? ? CSF spaces:? Basal cisterns are patent.? No extra-axial fluid collections.? Ventricles are normal in size and shape.? ? Brain:? Mild global cerebral volume loss.? Chronic microvascular ischemic change s.? No midline shift.? No intracranial masses or hemorrhage.? Moy-white matter interface is normal.? ? Skull and face:? Calvarium and visualized facial bones are intact, without suspicious lesions.? ? Sinuses:? Visualized sinuses and mastoids are clear.? ? IMPRESSION:? No acute intracranial abnormality.? Mild global cerebral volume loss and chronic microvascular ischemic changes. ? ? Dictated by: Papi Terrazas M.D. on 12/10/2021 at 13:10 ? ? Approved by: Papi Terrazas M.D. on 12/10/2021 at 13:11 ? [facility] Narrative Medical decision making narrative: Patient is a 71-year-old female presents to the emergency room today with complaint of migraine headache that started at about 6:00 a.m. this morning. States she had the exact same type of migraine yesterday started about 6:00 a.m. and was relieved after she reported to the emergency room received Dilaudid. Physical exam and HP I did not revealed any emergent concerns at this time. Provider also review patient's medical records to see the patient had a negative CT scan done on December 10 of this year. 1 mg of IM Dilaudid was administered to relieve the patient's migraine. Urine POC POC was ordered because patient had a vague complaint of mild flank pain. The urine was negative. Patient was discharged advised to follow-up with her PCP for any nonemergent concerns and advise return to the emergency room for any emergent concerns. Patient agrees with plan. <Lita Urbina, DO - Last Filed: 05/29/22 08:02> Lab Data Labs: Lab Results 05/28/22 Range/Units 13:30 Urine RBC None seen (0-5/HPF) Urine WBC 1-5/hpf (0-5/HPF) Ur Squamous Epith Cells 5-10 /hpf H (0-5/HPF) Urine Bacteria None seen (None) Ur Culture Indicated? Culture not indicate Urine Dip Bedside Urine Glucose Negative Bedside Urine Bilirubin - Negative Bedside Urine Ketone - Negative Urine Specific [place] 1.025 Bedside Urine Occult Blood - Negative Bedside Urine pH 6.0 Bedside Urine Protein - Negative Bedside Urine Urobilinogen - Negative Bedside Urine Nitrite - Negative Bedside Urine Leukocytes + 70 Esterase Discharge Plan Departure Patient Disposition: Home Clinical Impression: Migraine Instructions: DI for Migraine Activity Restrictions/Additional Instructions: *You have been diagnosed with [migraine headache. This headache is identical to the 1 you had yesterday that was relieved with Dilaudid. You were given IV Dilaudid 1 mg today to also relieve your migraine headache. I suggest you continue to use your at-home prophylactic treatment for your migraines. And also suggest she return to the emergency room should any emergent concerns arise. Please contact your PCP for any non emergent concerns.] *What to do: *Please continue to take your regular medications as directed. [ ] New medication prescriptions sent to your pharmacy: [ ] [ ] New medication written as a paper prescription [x] No new medications given *Please follow up with your primary care provider in 2-3 days, call for an appointment. Let them know you were seen in the Emergency Department and that we ask that you be seen in follow up. We will electronically transmit a record of today's note if your PCP is in our system *If you do not have a primary care provider please contact the [facility] Resource line at [phone]. They will ask some questions about your medical history and help get you set up with a doctor in the community. *Return to Emergency Department if you should have any new, worsening or concerning symptoms, such as [fever greater than 101 F, shaking chills, worsening pain, persistent vomiting or other bothersome symptoms] Prescriptions: No Action aspirin 81 mg Tablet,Chewable 81 mg PO QAM ondansetron 4 mg tablet,disintegrating 4 mg PO Q8H PRN (Reason: nausea and vomiting) Qty: 10 0RF furosemide 20 mg Tablet 10 mg PO QAM cyclobenzaprine 10 mg tablet 10 mg PO TID PRN (Reason: muscle spasm) Qty: 21 0RF tramadol 50 mg tablet 50 mg PO Q8H PRN (Reason: pain) Qty: 20 0RF dexamethasone 4 mg tablet 4 mg PO DAILY Qty: 4 0RF multivitamin Tablet 1 tab PO DAILY Qty: 0 atenolol 25 mg Tablet 25 mg PO DAILY levothyroxine [Synthroid] 150 mcg Tablet 150 mcg PO DAILY ezetimibe 10 mg Tablet 10 mg PO DAILY omega-3 fatty acids-vitamin E 1,000 mg Capsule 1 cap PO DAILY tramadol 50 mg tablet 50 mg PO Q8H PRN (Reason: pain) Qty: 14 0RF potassium chloride 10 mEq capsule, extended release 20 meq PO DAILY cholecalciferol (vitamin D3) 50 mcg (2,000 unit) capsule 50 mcg PO DAILY Eliquis 5 mg tablet 5 mg PO BID Referrals: Lacy Lopez MD [Primary Care Provider] - Visit Report Forms: Patient Portal/API <Lita Urbina DO - Last Filed: 05/29/22 08:02> Cosign ED Attending [place] Attestation: I was immediately available in the department for consultation. Documentation has been reviewed. Case was discussed.
[2022-05-28] MEDS: ONDANSETRON 4 MG/2 ML INJ IV (13:58)
[2022-05-28] MEDS: SODIUM CHLORIDE 0.9% 1,000 ML 1000 ML IV (13:58)
[2022-05-28] MEDS: HYDROMORPHONE 1 MG INJ IV (13:58)
[2022-05-28 14:05] LABS: RBC Urine None Seen (0-5/HPF)
[2022-05-28 14:06] LABS: Bacteria Urine None Seen; Squamous Epithelial Cell Urine 5-10 /HPF (0-5/HPF); WBC Urine 1-5/HPF (0-5/HPF)
== END 2022-05-28 16:04 | disposition home or self-care (01) ==
PROVIDERS: Emergency Provider Physician Assistant; PCP Internal Medicine
DX: G43.909 Migraine, unspecified, not intractable, without status migrainosus (principal)
CPT/HCPCS: 36415; 81003; 81015; 87077; 87086; 87147; 96361; 96374; 96375; 99284; J1170; J2405

== ENCOUNTER 2022-05-30 06:57 | Emergency (ER) | payer MEDICARE, OTHER, SELFPAY ==
[2021-06-25 17:33] VITALS: BMI 28.1
[2022-05-30] VITALS (17 sets, daily range): BP systolic 158–200; BP diastolic 71–93; PULSE 85–104; RESP 22; TEMP 37; O2SAT 86–100; BMI 28.8
--- NOTE | 2022-05-30 08:08 | DI.CT.S_ITS ---
PROCEDURE: CT HEAD/BRAIN WO CON INDICATIONS: headache TECHNIQUE: Noncontrast 4.5 mm thick angled axial sections acquired from the foramen magnum to the vertex, with coronal and sagittal reformats. For radiation dose reduction, the following was used: automated exposure control, adjustment of mA and/or kV according to patient size. COMPARISON: [facility], CT, CT HEAD/BRAIN WO CON, 08/21/2020, 20:17. Outside Film, CT, CT HEAD WITHOUT CONTRAST, 06/29/2021, 16:49. [facility], CT, CT HEAD/BRAIN WO CON, 12/10/2021, 12:56. FINDINGS: Image quality: Excellent. CSF spaces: Basal cisterns are patent. No extra-axial fluid collections. The ventricles are symmetric in size and shape. Brain: No intracranial bleeds or masses. There is cerebral volume loss for age, with resultant ventricular and sulcal prominence. There are periventricular and deep white matter chronic small vessel ischemic changes. There is intracranial internal carotid artery atherosclerosis. Skull and face: Calvarium and visualized facial bones appear intact, without suspicious lesions. Sinuses: There is prominent mucosal thickening within the left frontal sinus, moderate mucosal thickening within the anterior left ethmoid air cells, and moderate mucosal thickening within the visualized right maxillary sinus. No abnormal fluid is seen within the mastoid air cells. IMPRESSION: Unremarkable intracranial study for age, without a cause of headache identified. Paranasal sinus disease is seen. Dictated by: Justin Ivy M.D. on 05/30/2022 at 8:00 Approved by: Justin Ivy M.D. on 05/30/2022 at 8:02
--- NOTE | 2022-05-30 09:05 | ED_ITS ---
HPI - Headache General Chief Complaint: Headache Stated Complaint: headache/abd. pain Time Seen by Provider: 05/30/22 09:03 Source: patient Mode of arrival: Family Vehicle Limitations: no limitations History of Present Illness HPI Narrative: This is a 71-year-old female with history of atrial fibrillation on apixaban, diabetes type 2, hypothyroidism and history of migraines. Patient states last migraine was about a year ago she has had 3 visits including ox 25th kind of 26 and today for persistent migraine. Patient states it feels very similar in terms of intensity and location, she complains of abdominal discomfort but describes it actually more as nausea and states she does not have pain. Patient states no fevers or chills. Headache is in her typical pattern, she typically gets a little bit of blurred vision with the headache is intense and when there was some relief from her symptoms it goes away, she denies numbness, tingling or weakness, no difficulty with gait, she denies any difficulty with speech or other neurologic changes. Patient denies neck or back pain. No chest pain or shortness of breath. No vomiting. No diarrhea or constipation and denies any urinary symptoms. She has had improvement with narcotics. She was also seen at a walk-in clinic and was given a prescription for sumatriptan which she is not taken today, oral Reglan which she had a dose at 6:00 a.m. as well as antibiotic for group B strep infection that was found on her most recent ER visit. Patient states she has not had anything else for pain today. She has seen a neurologist in the past but is not currently in place. Patient has not had any recent trauma, other injuries no sudden onset of headache, no syncope or dizziness. Patient has had a prior cholecystectomy. Primary care is Dr. Vasquez. Denies any triggers or known causes. Related Data Home Medications Medication Instructions Recorded Confirmed aspirin 81 mg chewable tablet 81 mg PO QAM 07/26/20 12/23/21 atenolol 25 mg tablet 25 mg PO DAILY 06/25/21 12/23/21 ezetimibe 10 mg tablet 10 mg PO DAILY 06/25/21 12/23/21 levothyroxine 150 mcg tablet 150 mcg PO DAILY 06/25/21 12/23/21 (Synthroid) multivitamin 1 tab PO DAILY ##0 06/25/21 12/23/21 omega-3 fatty acids-vitamin E 1 cap PO DAILY 06/25/21 12/23/21 1,000 mg capsule furosemide 20 mg tablet 10 mg PO QAM 07/09/21 12/23/21 apixaban 5 mg tablet (Eliquis) 5 mg PO BID 07/22/21 12/23/21 cholecalciferol (vitamin D3) 50 50 mcg PO DAILY 07/22/21 12/23/21 mcg (2,000 unit) capsule potassium chloride 10 mEq 20 meq PO DAILY 07/22/21 12/23/21 capsule,extended release Previous Rx's Medication Instructions Recorded ondansetron 4 mg disintegrating 4 mg PO Q8H PRN nausea and 06/24/21 tablet vomiting #10 tabs tramadol 50 mg tablet 50 mg PO Q8H PRN pain #14 tabs 02/28/22 cyclobenzaprine 10 mg tablet 10 mg PO TID PRN muscle spasm #21 03/25/22 tabs tramadol 50 mg tablet 50 mg PO Q8H PRN pain #20 tabs 03/25/22 dexamethasone 4 mg tablet 4 mg PO DAILY #4 tabs 04/02/22 cephalexin 500 mg capsule 500 mg PO BID 5 days #10 caps 05/29/22 mkvoocbjns-ouqoopruhrtpb-zaglfwxi 1 cap PO Q6H PRN pain #10 caps 05/30/22 50 mg-300 mg-40 mg capsule (Fioricet) Allergies Allergy/AdvReac Type Severity Reaction Status Date / Time lisinopril Allergy Severe Anaphylaxis Verified 04/02/22 09:36 metformin AdvReac Vomiting Verified 04/02/22 09:36 Review of Systems Review of Systems ROS Unobtainable: All systems reviewed & are unremarkable except as noted in HPI and below Patient History Medical History Atrial fibrillation Breast cancer Chronic back pain Chronic pancreatitis Depression Facet arthropathy, lumbar Heart murmur HLD (hyperlipidemia) Hypertension Hypothyroidism Lumbar radiculopathy Migraine headache Nose fracture (~06/29/21) Tinnitus UTI (urinary tract infection) Surgical History History of colonoscopy History of hysterectomy Hx of breast surgery Hx of cholecystectomy Hx of oophorectomy Hx of tonsillectomy Family History Father Brain tumor Congestive heart failure Mother Hypertension Stroke Grandfather Stroke Social History household members: spouse Smoking Status: Former smoker alcohol intake: current Smoking Status: Former smoker alcohol intake frequency: a few times a week Alcohol type: wine Substance Use Type: does not use Exam Narrative Exam Narrative: GEN: well nourished, well appearing mild, alert and oriented x 3, patient appears to be in mild distress. HEENT: Atraumatic, pupils are equal round reactive to light, extraocular movements are intact, no photophobia, nares are clear, TMs are clear with no fluid, there is no conjunctival pallor. Throat is clear without any exudates, erythema, tonsillar enlargement or uvular deviation, no facial droop. Normal range of motion of neck, no Kernig's. HEART: Regular rate and rhythm without murmur, clicks, rubs. pulses are equal in upper and lower extremities LUNGS:Lungs clear to auscultation, no wheezes, rales, crackles, chest moves symmetrically ABD:bowel sounds normal, soft, non-tender, no guarding, rebound, rigidity, no masses noted, no hepatosplenomegaly :No CVA tenderness MSCL: Non-tender, no muscle atrophy, muscles strength 5/5 upper and lower extremities, full range of motion, normal gait NEURO:CN 2-12 intact, sensation normal, reflexes 2/4 upper and lower extremities. finger nose finger test normal, heel naranjo test normal SKIN: No rash, erythema or other skin changes. Initial Vital Signs Initial Vital Signs: Vital Signs Pulse Rate 103 H 05/30/22 07:23 Pulse Oximetry 97 05/30/22 07:23 Scores GCS [place] coma scale eye opening: Spontaneous [place] coma scale verbal response: Orientated [place] coma scale motor response: Obey commands [place] coma scale total score: 15 Course Orders Ordered: ED Orders 05/30/22 11:16 COVID19 -Nasal RAPID/Pre-Proc Stat Discontinued Medications Dexamethasone (Dexamethasone 10 Mg/Ml Vial) 10 mg IV NOW ONE Stop: 05/30/22 09:24 Last Admin: 05/30/22 10:07 Dose: 10 mg Documented By: CSD Diphenhydramine HCl (Diphenhydramine 50 Mg/Ml Vial) 25 mg IV NOW ONE Stop: 05/30/22 10:37 Last Admin: 05/30/22 10:47 Dose: 25 mg Documented By: VASQUEZ Hydromorphone HCl (Hydromorphone 0.5 Mg Inj) 0.5 mg IV NOW ONE Stop: 05/30/22 12:03 Last Admin: 05/30/22 12:12 Dose: 0.5 mg Documented By: AT Sodium Chloride (Normal Saline 0.9%) 1,000 mls @ 1,000 mls/hr IV BOLUS ONE Stop: 05/30/22 10:24 Last Infusion: 05/30/22 11:29 Dose: 0 mls/hr Documented By: Admin: 05/30/22 10:06 Dose: 1,000 mls/hr Documented By: TAMARA Ketorolac Tromethamine (Ketorolac 30 Mg/Ml Vial) 15 mg IV NOW ONE Stop: 05/30/22 09:24 Last Admin: 05/30/22 10:07 Dose: 15 mg Documented By: TAMARA Vital Signs Vital signs: Vital Signs - 8 hr 05/30/22 12:00 05/30/22 12:02 05/30/22 12:02 Pulse Rate 92 H 95 H Blood Pressure 177/89 H Pulse Oximetry 100 100 Oxygen Delivery Method Room Air 05/30/22 12:30 05/30/22 12:30 Pulse Rate 88 Blood Pressure 168/79 H Pulse Oximetry 98 Oxygen Delivery Method MDM - Headache Lab Data Result diagrams: 05/30/22 09:06 05/30/22 09:06 Labs: Lab Results 05/30/22 05/30/22 05/30/22 Range/Units 09:06 09:06 11:16 WBC 13.8 H (4.5-11.0) X10^3/uL RBC 4.66 (4.0-5.2) X10^6/uL Hgb 14.2 (12.0-16.0) g/dL Hct 42.5 (36-46) % MCV 91.3 (80-100) fL MCH 30.4 (26-34) PG MCHC 33.3 (30-36) % RDW 15.0 H (11.6-14.8) % Plt Count 229 (150-400) X10^3/uL Neut % (Auto) 81.9 H (50-75) % Lymph % (Auto) 10.9 L (25-40) % [place] % (Auto) 7.0 (3-14) % Eos % (Auto) 0.0 L (2-4) % Baso % (Auto) 0.2 (0-2) % Neut # (Auto) 13027 H (5292-3522) /uL Lymph # (Auto) 1500 (1627-1423) /uL [place] # (Auto) 1000 H (0-900) /uL Eos # (Auto) 0 (0-450) /uL Baso # (Auto) 0 (0-100) /uL Sodium 139 (137-145) mmol/L Potassium 4.4 (3.4-5.1) mmol/L Chloride 104 (98-107) mmol/L Carbon Dioxide 27 (22-32) mmol/L BUN 21 H (7-17) mg/dL Creatinine 1.32 H (0.52-1.04) mg/dL Estimated GFR 43 L (>60) mL/min BUN/Creatinine Ratio 15.9 (6-22) Glucose 144 H (80-110) mg/dL Calcium 9.5 (8.4-10.2) mg/dL Total Bilirubin 0.6 (0.2-1.3) mg/dL AST 29 (14-36) IU/L ALT 34 (<35) IU/L Alkaline Phosphatase 79 (38-126) U/L Total Protein 7.0 (6.3-8.2) g/dL Albumin 4.1 (3.5-5.0) g/dL Globulin 2.9 (1.7-4.1) g/dL Albumin/Globulin Ratio 1.4 (1.0-2.8) Lipase 77 (23-300) U/L SARS-CoV-2 (PCR) Negative (Negative) Imaging Data CT scan - head: Radiologist's Impression: Close Head CT (Signed) Justin Ivy - 05/30/22 Launch?[address] [address] [address] Scan Report Signed Patient: Jackie Javed MR#: [id number] : 1950 Acct:[id number] Age/Sex: 71 / F Date of Service: 05/30/22 Loc: ED Accession Number: [id number] ?? Procedure: CT head/brain wo con Ordering Provider: Lita Urbina D.O. PROCEDURE:? CT HEAD/BRAIN WO CON ? INDICATIONS:? headache ? TECHNIQUE:? Noncontrast 4.5 mm thick angled axial sections acquired from the foramen magnum to the vertex, with coronal and sagittal reformats.? For radiation dose reduction, the following was used:? automated exposure control, adjustment of mA and/or kV according to patient size.? ? COMPARISON:? [facility], CT, CT HEAD/BRAIN WO CON, 08/21/2020, 20:17.? [facility], CT, CT HEAD WITHOUT CONTRAST, 06/29/2021, 16:49.? [facility], CT, CT HEAD/BRAIN WO CON, 12/10/2021, 12:56. ? FINDINGS:? Image quality:? Excellent.? ? CSF spaces:? Basal cisterns are patent.? No extra-axial fluid collections.? The ventricles are symmetric in size and shape.? ? Brain:? No intracranial bleeds or masses.? There is cerebral volume loss for age, with resultant ventricular and sulcal prominence.? There are periventricular and deep white matter chronic small vessel ischemic changes.? There is intracranial internal carotid artery atherosclerosis.? ? Skull and face:? Calvarium and visualized facial bones appear intact, without suspicious lesions.? ? Sinuses:? There is prominent mucosal thickening within the left frontal sinus, moderate mucosal thickening within the anterior left ethmoid air cells, and moderate mucosal thickening within the visualized right maxillary sinus. No abnormal fluid is seen within the mastoid air cells. ? ? IMPRESSION:? Unremarkable intracranial study for age, without a cause of headache identified.? ? Paranasal sinus disease is seen. ? ? Dictated by: Justin Ivy M.D. on 05/30/2022 at 8:00 ? ? Approved by: Justin Ivy M.D. on 05/30/2022 at 8:02?? [facility] Narrative Medical decision making narrative: This is a 71-year-old female who presents 3 times in the past several days for persistent migraine. Patient does have a migraine history but based on age, the fact that she is anticoagulated has such frequent visits in the past week head CT was obtained which is negative for bleed or other change. No other red flag changes that would make me suspicious for subarachnoid. Patient has been afebrile. She states pattern as otherwise fairly typical she has had improvement with medication particularly narcotics. Patient did not take any other sumatriptan that was prescribed yesterday from a walk-in clinic she did try some Reglan this morning. She is not taken any smpe-owx-payjkdg medications for her headache today. Plan to obtain lab work to evaluate for other potential causes that may be exacerbating or causing including electrolytes. This shows patient labs do not show any major changes. COVID is negative. Discussed need with patient she needs to follow up with Neurology she is having persistent intractable migraines, we also discussed that if she returns we will have to use nonnarcotic options in the future. We did discuss we tried some dexamethasone for intractable migraine she does have improvement with narcotics but this is not main or first-line treatment. And that we to look for some alternative options. Also discussed return precautions for any new neurologic changes fevers or other concerning changes in that she is welcome to return at any time. Discharge Plan Departure Patient Disposition: Home Clinical Impression: Migraine Instructions: DI for Migraine Activity Restrictions/Additional Instructions: Follow up with your physician for recheck, if you are having persistent h eadaches and migraines you may need to follow-up with neurology. There are medications that are daily that can help prevent recurrent or persistent migraines. I would recommend trying your medications such as the sumatriptan for your migraines that was prescribed to you. You can take 1 tablet of Fioricet every 6 hours as needed. Prescription sent to [facility] in [place]. Please return for fevers, passing out, chest pain or shortness of breath, persistent vomiting, new neurologic changes or other new or concerning symptoms. Prescriptions: New wtuofnaevf-uaorejwzyecft-ajse [Fioricet] 50-300-40 mg capsule 1 cap PO Q6H PRN (Reason: pain) Qty: 10 0RF No Action aspirin 81 mg Tablet,Chewable 81 mg PO QAM ondansetron 4 mg tablet,disintegrating 4 mg PO Q8H PRN (Reason: nausea and vomiting) Qty: 10 0RF furosemide 20 mg Tablet 10 mg PO QAM cyclobenzaprine 10 mg tablet 10 mg PO TID PRN (Reason: muscle spasm) Qty: 21 0RF tramadol 50 mg tablet 50 mg PO Q8H PRN (Reason: pain) Qty: 20 0RF dexamethasone 4 mg tablet 4 mg PO DAILY Qty: 4 0RF multivitamin Tablet 1 tab PO DAILY Qty: 0 atenolol 25 mg Tablet 25 mg PO DAILY levothyroxine [Synthroid] 150 mcg Tablet 150 mcg PO DAILY ezetimibe 10 mg Tablet 10 mg PO DAILY omega-3 fatty acids-vitamin E 1,000 mg Capsule 1 cap PO DAILY tramadol 50 mg tablet 50 mg PO Q8H PRN (Reason: pain) Qty: 14 0RF cephalexin 500 mg capsule 500 mg PO BID 5 Days Qty: 10 0RF potassium chloride 10 mEq capsule, extended release 20 meq PO DAILY cholecalciferol (vitamin D3) 50 mcg (2,000 unit) capsule 50 mcg PO DAILY Eliquis 5 mg tablet 5 mg PO BID Referrals: Kris Vasquez MD [Primary Care Provider] - Visit Report Forms: Patient Portal/API
[2022-05-30 09:32] LABS: Add Manual Diff / Slide Review NO; Basophils Absolute Auto 0 /uL (0-100); Basophils Percent Auto 0.2 % (0-2); Eosinophils Absolute Auto 0 /uL (0-450); Hematocrit 42.5 % (36-46); Hemoglobin 14.2 g/dL (12.0-16.0); Lymphocytes Absolute Auto 1500 /uL (1100-4500); Lymphocytes Percent Auto 10.9 % (25-40); Mean Corpuscular HGB Conc 33.3 % (30-36); Mean Corpuscular Hemoglobin 30.4 PG (26-34); Mean Corpuscular Volume 91.3 fL (80-100); Monocytes Absolute Auto 1000 /uL (0-900); Neutrophils Absolute Auto 11300 /uL (1500-7000); Neutrophils Percent Auto 81.9 % (50-75); Platelet Count 229 X10^3/uL (150-400); Red Blood Cell Count 4.66 X10^6/uL (4.0-5.2); White Blood Cell Count 13.8 X10^3/uL (4.5-11.0)
[2022-05-30 09:38] LABS: Alanine Aminotransferase 34 IU/L (<35); Albumin 4.1 g/dL (3.5-5.0); Albumin Globulin Ratio 1.4 (1.0-2.8); Alkaline Phosphatase 79 U/L (38-126); Aspartate Aminotransferase 29 IU/L (14-36); BUN Creatinine Ratio 15.9 (6-22); Bilirubin Total 0.6 mg/dL (0.2-1.3); Blood Urea Nitrogen 21 mg/dL (7-17); Calcium 9.5 mg/dL (8.4-10.2); Carbon Dioxide 27 mmol/L (22-32); Chloride 104 mmol/L (98-107); Estimated Glomerular Filt Rate 43 mL/min (>60); Globulin 2.9 g/dL (1.7-4.1); Glucose 144 mg/dL (80-110); HEMOLYSIS < 15 (0-50); Lipase 77 U/L (23-300); Potassium 4.4 mmol/L (3.4-5.1); Sodium 139 mmol/L (137-145)
[2022-05-30] MEDS: SODIUM CHLORIDE 0.9% 1,000 ML 1000 ML IV (10:06)
[2022-05-30] MEDS: KETOROLAC 30 MG/ML VIAL 15 MG IV (10:07)
[2022-05-30] MEDS: DEXAMETHASONE 10 MG/ML VIAL IV (10:07)
[2022-05-30] MEDS: diphenhydrAMINE 50 MG/ML VIAL 25 MG IV (10:47)
[2022-05-30 11:34] LABS: COVID19 -Nasal RAPID Negative (Negative)
[2022-05-30] MEDS: HYDROMORPHONE 0.5 MG INJ IV (12:12)
== END 2022-05-30 12:37 | disposition home or self-care (01) ==
PROVIDERS: Emergency Provider Emergency Medicine; PCP Internal Medicine
DX: G43.909 Migraine, unspecified, not intractable, without status migrainosus (principal); Z20.822 Contact with and (suspected) exposure to COVID-19
CPT/HCPCS: 36415; 70450; 80053; 83690; 85025; 87635; 96361; 96374; 96375; 99284; C9803; J1100; J1170; J1200; J1885

== ENCOUNTER 2022-06-15 07:22 | Emergency (ER) | payer MEDICARE, OTHER, SELFPAY ==
[2021-06-25 17:33] VITALS: BMI 28.1
[2022-06-15] VITALS (10 sets, daily range): BP systolic 145–164; BP diastolic 70–118; PULSE 79–97; RESP 19–22; TEMP 36.8; O2SAT 96–99; BMI 28.5
--- NOTE | 2022-06-15 07:39 | ED.HA ---
HPI - Headache General Chief Complaint: Headache Stated Complaint: Migraine 2 days Time Seen by Provider: 06/15/22 07:30 Mode of arrival: Family Vehicle History of Present Illness HPI Narrative: Patient is a 71-year-old female with history of atrial fibrillation on Eliquis, type 2 diabetes, hypothyroidism and history of migraines. She has had increase in migraines over the past 1 month. She has now been seen in the ED 4 times in the last 3 weeks for the same. Today she presents with right-sided headache and persistent vomiting. She says it started yesterday. She denies any numbness tingling or weakness. No chest pain or palpitations. She says that she just can not stop vomiting. She was last seen here on May 30 for the same. At that time she did have a head CT which was negative. Related Data Home Medications Medication Instructions Recorded Confirmed aspirin 81 mg chewable tablet 81 mg PO QAM 07/26/20 12/23/21 atenolol 25 mg tablet 25 mg PO DAILY 06/25/21 12/23/21 ezetimibe 10 mg tablet 10 mg PO DAILY 06/25/21 12/23/21 levothyroxine 150 mcg tablet 150 mcg PO DAILY 06/25/21 12/23/21 (Synthroid) multivitamin 1 tab PO DAILY ##0 06/25/21 12/23/21 omega-3 fatty acids-vitamin E 1 cap PO DAILY 06/25/21 12/23/21 1,000 mg capsule furosemide 20 mg tablet 10 mg PO QAM 07/09/21 12/23/21 apixaban 5 mg tablet (Eliquis) 5 mg PO BID 07/22/21 12/23/21 cholecalciferol (vitamin D3) 50 50 mcg PO DAILY 07/22/21 12/23/21 mcg (2,000 unit) capsule potassium chloride 10 mEq 20 meq PO DAILY 07/22/21 12/23/21 capsule,extended release Previous Rx's Medication Instructions Recorded ondansetron 4 mg disintegrating 4 mg PO Q8H PRN nausea and 06/24/21 tablet vomiting #10 tabs tramadol 50 mg tablet 50 mg PO Q8H PRN pain #14 tabs 02/28/22 cyclobenzaprine 10 mg tablet 10 mg PO TID PRN muscle spasm #21 03/25/22 tabs tramadol 50 mg tablet 50 mg PO Q8H PRN pain #20 tabs 03/25/22 dexamethasone 4 mg tablet 4 mg PO DAILY #4 tabs 04/02/22 eamznxydoa-fpmscehdoiyex-nqyogsgq 1 cap PO Q6H PRN pain #10 caps 05/30/22 50 mg-300 mg-40 mg capsule (Fioricet) ondansetron 4 mg disintegrating 4 mg PO Q6-8H PRN nausea and 06/15/22 tablet vomiting #10 tabs Allergies Allergy/AdvReac Type Severity Reaction Status Date / Time lisinopril Allergy Severe Anaphylaxis Verified 04/02/22 09:36 metformin AdvReac Vomiting Verified 04/02/22 09:36 Review of Systems Review of Systems Narrative: GENERAL: Denies chills, fatigue, malaise, fever, sweats, travel HEENT: Denies sinus pain, ear pain, sore throat, difficulty swallowing, neck pain RESPIRATORY: Denies dyspnea, cough, wheezing, hemoptysis, sputum. CARDIOVASCULAR: Denies chest pain, palpitations, orthopnea, edema GASTROINTESTINAL: Denies nausea, vomiting, abdominal pain, diarrhea, constipation, melena. : Denies dysuria, frequency, incontinence, hematuria, urinary retention, flank pain. MUSCULOSKELETAL: Denies weakness, joint pain, or bony pain SKIN: No rash, no erythema, no pruritus NEUROLOGIC: See HPI PSYCHIATRIC: No concerning psychosocial issues. 12 point review of systems is negative except for those stated above and HPI Patient History Medical History Atrial fibrillation Breast cancer Chronic back pain Chronic pancreatitis Depression Facet arthropathy, lumbar Heart murmur HLD (hyperlipidemia) Hypertension Hypothyroidism Lumbar radiculopathy Migraine headache Nose fracture (~06/29/21) Tinnitus UTI (urinary tract infection) Surgical History History of colonoscopy History of hysterectomy Hx of breast surgery Hx of cholecystectomy Hx of oophorectomy Hx of tonsillectomy Family History Father Brain tumor Congestive heart failure Mother Hypertension Stroke Grandfather Stroke Social History household members: spouse Smoking Status: Former smoker alcohol intake: current Smoking Status: Former smoker alcohol intake frequency: a few times a week Alcohol type: wine Substance Use Type: does not use Exam Initial Vital Signs Initial Vital Signs: Vital Signs Temperature 98.3 F 06/15/22 07:35 Pulse Rate 84 06/15/22 07:35 Respiratory Rate 19 06/15/22 07:35 Blood Pressure 164/90 H 06/15/22 07:35 Pulse Oximetry 97 06/15/22 07:35 Oxygen Delivery Method 06/15/22 07:35 GENERAL: Actively vomiting 71-year-old female appears on comfort HEENT: Head atraumatic,EOMI, pupils reactive, face symmetric, moist mucous membranes CARDIOVASCULAR: Regular rate and rhythm without murmurs, rubs or gallops. RESPIRATORY: Breath sounds equal bilaterally, no wheezes rales or rhonchi. ABDOMEN: Soft, nontender. Normoactive bowel sounds all 4 quadrants. No guarding or rebound. EXTREMITIES: Normal range of motion, no clubbing or edema. Neurovascularly intact NEUROLOGICAL: Alert and oriented x4.Normal gait and speech. Cranial nerves II through XII grossly intact. Good mblrlr-yp-guhq, good ueuq-hc-rpnn, strength equal bilaterally, no dysarthria or aphasia, sensation in tact to soft touch bilaterally, no visual changes, no facial droop SKIN: Warm, dry, no laceration, no petechiae, no rashes or lesions. Course Orders Ordered: ED Orders 06/15/22 07:41 CT head/brain wo con Stat 06/15/22 08:04 CBC Auto Diff [Complete Blood Count AUTO DIFF] Stat CMP [Comprehensive Metabolic Panel] Stat Discontinued Medications Dexamethasone (Dexamethasone 10 Mg/Ml Vial) 10 mg IV NOW ONE Stop: 06/15/22 07:41 Last Admin: 06/15/22 08:18 Dose: 10 mg Diphenhydramine HCl (Diphenhydramine 50 Mg/Ml Vial) 25 mg IV NOW ONE Stop: 06/15/22 07:41 Last Admin: 06/15/22 08:17 Dose: 25 mg Hydromorphone HCl (Hydromorphone 1 Mg Inj) 1 mg IV NOW ONE Stop: 06/15/22 08:23 Last Admin: 06/15/22 08:35 Dose: 1 mg Sodium Chloride (Normal Saline 0.9%) 1,000 mls @ 1,000 mls/hr IV BOLUS ONE Stop: 06/15/22 08:39 Last Infusion: 06/15/22 09:07 Dose: Infused Ketorolac Tromethamine (Ketorolac 30 Mg/Ml Vial) 15 mg IV NOW ONE Stop: 06/15/22 07:41 Last Admin: 06/15/22 08:11 Dose: Not Given Metoclopramide HCl (Metoclopramide 10 Mg/2 Ml Inj) 10 mg IV NOW ONE Stop: 06/15/22 07:41 Last Admin: 06/15/22 08:11 Dose: 10 mg Vital Signs Vital signs: Vital Signs - 8 hr 06/15/22 07:35 Temperature 98.3 F Pulse Rate 84 Respiratory Rate 19 Blood Pressure 164/90 H Pulse Oximetry 97 Oxygen Delivery Method Room Air MDM - Headache Lab Data Result diagrams: 06/15/22 08:04 06/15/22 08:04 Labs: Lab Results 06/15/22 06/15/22 Range/Units 08:04 08:04 WBC 13.8 H (4.5-11.0) X10^3/uL RBC 4.62 (4.0-5.2) X10^6/uL Hgb 14.3 (12.0-16.0) g/dL Hct 41.7 (36-46) % MCV 90.2 (80-100) fL MCH 30.9 (26-34) PG MCHC 34.2 (30-36) % RDW 14.6 (11.6-14.8) % Plt Count 228 (150-400) X10^3/uL Neut % (Auto) 74.0 (50-75) % Lymph % (Auto) 15.5 L (25-40) % [place] % (Auto) 9.7 (3-14) % Eos % (Auto) 0.0 L (2-4) % Baso % (Auto) 0.8 (0-2) % Neut # (Auto) 75319 H (3266-4603) /uL Lymph # (Auto) 2100 (1689-4146) /uL [place] # (Auto) 1300 H (0-900) /uL Eos # (Auto) 0 (0-450) /uL Baso # (Auto) 100 (0-100) /uL Sodium 141 (137-145) mmol/L Potassium 4.4 (3.4-5.1) mmol/L Chloride 105 (98-107) mmol/L Carbon Dioxide 24 (22-32) mmol/L BUN 18 H (7-17) mg/dL Creatinine 1.07 H (0.52-1.04) mg/dL Estimated GFR 55 L (>60) mL/min BUN/Creatinine Ratio 16.8 (6-22) Glucose 115 H (80-110) mg/dL Calcium 9.7 (8.4-10.2) mg/dL Total Bilirubin 0.4 (0.2-1.3) mg/dL AST 34 (14-36) IU/L ALT 28 (<35) IU/L Alkaline Phosphatase 83 (38-126) U/L Total Protein 7.3 (6.3-8.2) g/dL Albumin 4.3 (3.5-5.0) g/dL Globulin 3.0 (1.7-4.1) g/dL Albumin/Globulin Ratio 1.4 (1.0-2.8) Imaging Data CT scan - head: Radiologist's Impression: : Jackie Javed MR#: [id number] : 1950 Acct:[id number] Age/Sex: 71 / F Date of Service: 06/15/22 Loc: ED Accession Number: [id number] ?? Procedure: CT head/brain wo con Ordering Provider: Sandra Perales D.O. PROCEDURE:? CT HEAD/BRAIN WO CON ? INDICATIONS:? headache on eliquis ? TECHNIQUE:? Noncontrast 4.5 mm thick angled axial sections acquired from the foramen magnum to the vertex, with coronal and sagittal reformats.? For radiation dose reduction, the following was used:? automated exposure control, adjustment of mA and/or kV according to patient size.? ? COMPARISON:? [facility], CT, CT HEAD/BRAIN WO CON, 05/30/2022, 8:30. ? FINDINGS:? Image quality:? Excellent.? ? CSF spaces:? Basal cisterns are patent.? No extra-axial fluid collections.? The ventricles are symmetric in size and shape.? ? Brain:? No intracranial bleeds or masses.? There is cerebral volume loss for age, with resultant ventricular and sulcal prominence.? There are periventricular and deep white matter chronic small vessel ischemic changes.? There is intracranial internal carotid artery atherosclerosis.? ? Skull and face:? Calvarium and visualized facial bones appear intact, without suspicious lesions.? ? Sinuses:? Mild mucosal thickening in right maxillary sinus is again seen.? The rest of the visualized bilateral paranasal sinuses and mastoids are well aerated. ? IMPRESSION:? 1. No CT evidence of acute intracranial abnormalities.? No significant changes from previous studies. 2. Mild chronic appearing right maxillary sinusitis.? Dictated by: Vu Aldana M.D. on 06/15/2022 at 7:57 ? [facility] Narrative Medical decision making narrative: Patient states that her doctor requested that she try a no beat diet. Since she has been on this no week diet she has had significant increase in migraine headaches. An appointment with her PCP in 3 days to discuss but. This may may not be contributing to her migraine headache. Today workup is negative. She requested dilaudid side of the other migraine cocktail medications. Head CT is negative. Overall feeling significantly better. She has Reglan at home I will send her home with some Zofran. Discharge Plan Departure Patient Disposition: Home Clinical Impression: Migraine Instructions: DI for Migraine Activity Restrictions/Additional Instructions: *You have been diagnosed with migraine *What to do: At this time it appears to have had a migraine. It may are may not be related to your new diet restrictions. May be worth trying to add some carbohydrates back in tear diet and see if it helps her migraines per *Continue to take medications as directed Zofran 4 mg every 8 hours if needed for vomiting or nausea-->SENT TO [facility] [place] *Follow up with your primary care provider in 2-3 days or call [phone] *Return to ER if you should have increasing headache persistent vomiting, numbness tingling weakness or any new, worsening or concerning symptoms Prescriptions: New ondansetron 4 mg tablet,disintegrating 4 mg PO Q6-8H PRN (Reason: nausea and vomiting) Qty: 10 0RF No Action aspirin 81 mg Tablet,Chewable 81 mg PO QAM ondansetron 4 mg tablet,disintegrating 4 mg PO Q8H PRN (Reason: nausea and vomiting) Qty: 10 0RF furosemide 20 mg Tablet 10 mg PO QAM cyclobenzaprine 10 mg tablet 10 mg PO TID PRN (Reason: muscle spasm) Qty: 21 0RF tramadol 50 mg tablet 50 mg PO Q8H PRN (Reason: pain) Qty: 20 0RF dexamethasone 4 mg tablet 4 mg PO DAILY Qty: 4 0RF [id number] [Fioricet] 50-300-40 mg capsule 1 cap PO Q6H PRN (Reason: pain) Qty: 10 0RF multivitamin Tablet 1 tab PO DAILY Qty: 0 atenolol 25 mg Tablet 25 mg PO DAILY levothyroxine [Synthroid] 150 mcg Tablet 150 mcg PO DAILY ezetimibe 10 mg Tablet 10 mg PO DAILY omega-3 fatty acids-vitamin E 1,000 mg Capsule 1 cap PO DAILY tramadol 50 mg tablet 50 mg PO Q8H PRN (Reason: pain) Qty: 14 0RF potassium chloride 10 mEq capsule, extended release 20 meq PO DAILY cholecalciferol (vitamin D3) 50 mcg (2,000 unit) capsule 50 mcg PO DAILY Eliquis 5 mg tablet 5 mg PO BID Referrals: Kris Vasquez MD [Primary Care Provider] -
--- NOTE | 2022-06-15 07:41 | DI.CT.S_ITS ---
PROCEDURE: CT HEAD/BRAIN WO CON INDICATIONS: headache on eliquis TECHNIQUE: Noncontrast 4.5 mm thick angled axial sections acquired from the foramen magnum to the vertex, with coronal and sagittal reformats. For radiation dose reduction, the following was used: automated exposure control, adjustment of mA and/or kV according to patient size. COMPARISON: [facility], CT, CT HEAD/BRAIN WO CON, 05/30/2022, 8:30. FINDINGS: Image quality: Excellent. CSF spaces: Basal cisterns are patent. No extra-axial fluid collections. The ventricles are symmetric in size and shape. Brain: No intracranial bleeds or masses. There is cerebral volume loss for age, with resultant ventricular and sulcal prominence. There are periventricular and deep white matter chronic small vessel ischemic changes. There is intracranial internal carotid artery atherosclerosis. Skull and face: Calvarium and visualized facial bones appear intact, without suspicious lesions. Sinuses: Mild mucosal thickening in right maxillary sinus is again seen. The rest of the visualized bilateral paranasal sinuses and mastoids are well aerated. IMPRESSION: 1. No CT evidence of acute intracranial abnormalities. No significant changes from previous studies. 2. Mild chronic appearing right maxillary sinusitis. Dictated by: Vu Aldana M.D. on 06/15/2022 at 7:57 Approved by: Vu Aldana M.D. on 06/15/2022 at 7:58
[2022-06-15] MEDS: SODIUM CHLORIDE 0.9% 1,000 ML 1000 ML IV (08:10)
[2022-06-15 08:11] LABS: Add Manual Diff / Slide Review NO; Basophils Absolute Auto 100 /uL (0-100); Basophils Percent Auto 0.8 % (0-2); Eosinophils Absolute Auto 0 /uL (0-450); Hematocrit 41.7 % (36-46); Hemoglobin 14.3 g/dL (12.0-16.0); Lymphocytes Absolute Auto 2100 /uL (1100-4500); Lymphocytes Percent Auto 15.5 % (25-40); Mean Corpuscular HGB Conc 34.2 % (30-36); Mean Corpuscular Hemoglobin 30.9 PG (26-34); Mean Corpuscular Volume 90.2 fL (80-100); Monocytes Absolute Auto 1300 /uL (0-900); Monocytes Percent Auto 9.7 % (3-14); Neutrophils Absolute Auto 10200 /uL (1500-7000); Platelet Count 228 X10^3/uL (150-400); Red Blood Cell Count 4.62 X10^6/uL (4.0-5.2); Red Cell Distribution Width 14.6 % (11.6-14.8); White Blood Cell Count 13.8 X10^3/uL (4.5-11.0)
[2022-06-15] MEDS: METOCLOPRAMIDE 10 MG/2 ML INJ IV (08:11)
[2022-06-15] MEDS: diphenhydrAMINE 50 MG/ML VIAL 25 MG IV (08:17)
[2022-06-15] MEDS: DEXAMETHASONE 10 MG/ML VIAL IV (08:18)
[2022-06-15 08:25] LABS: Alanine Aminotransferase 28 IU/L (<35); Albumin 4.3 g/dL (3.5-5.0); Albumin Globulin Ratio 1.4 (1.0-2.8); Alkaline Phosphatase 83 U/L (38-126); Aspartate Aminotransferase 34 IU/L (14-36); BUN Creatinine Ratio 16.8 (6-22); Bilirubin Total 0.4 mg/dL (0.2-1.3); Blood Urea Nitrogen 18 mg/dL (7-17); Calcium 9.7 mg/dL (8.4-10.2); Carbon Dioxide 24 mmol/L (22-32); Chloride 105 mmol/L (98-107); Estimated Glomerular Filt Rate 55 mL/min (>60); Glucose 115 mg/dL (80-110); HEMOLYSIS < 15 (0-50); Potassium 4.4 mmol/L (3.4-5.1); Sodium 141 mmol/L (137-145); Total Protein 7.3 g/dL (6.3-8.2)
[2022-06-15] MEDS: HYDROMORPHONE 1 MG INJ IV (08:35)
== END 2022-06-15 09:30 | disposition home or self-care (01) ==
PROVIDERS: Emergency Provider Emergency Medicine; PCP Internal Medicine
DX: G43.909 Migraine, unspecified, not intractable, without status migrainosus (principal)
CPT/HCPCS: 36415; 70450; 80053; 85025; 96361; 96374; 96375; 99284; J1100; J1170; J1200; J2765

== ENCOUNTER 2022-06-16 08:19 | Emergency (ER) | payer MEDICARE, OTHER, SELFPAY ==
[2021-06-25 17:33] VITALS: BMI 28.1
[2022-06-16 08:20] VITALS: BP 204/98; PULSE 102; RESP 20; TEMP 36.7; O2SAT 97; BMI 28.5
--- NOTE | 2022-06-16 08:42 | ED.HA ---
HPI - Headache General Chief Complaint: Headache Stated Complaint: Migraine- here yesterday Time Seen by Provider: 06/16/22 08:38 History of Present Illness HPI Narrative: Patient is a 71-year-old female with history of atrial fibrillation on Eliquis, type 2 diabetes, hypothyroidism and migraines. This is actually her 3rd visit no row to an emergency department for migraines. She was seen on June [address] [facility], I saw her yesterday today is the 3rd day. She has actually had increased visits since the end of May for migraine headaches. She thinks it started when her doctor told her to decrease the carbs in her diet. She previously did not have this many migraine headaches. She has had head CTs and workups in every emergency department. She says the only thing that helps is dilaudid the migraine cocktail does not help. She says yesterday after she left she was feeling okay until about 9:00 p.m. nauseous she took the Zofran is and and her headache started again. She has been up since early this morning or vomiting drain heaving headache is the same as it normally is. It is on the right side. She is minimally sensitive to light no numbness tingling or weakness. It is not the worst headache she had. It is similar to previous migraine. Related Data Home Medications Medication Instructions Recorded Confirmed aspirin 81 mg chewable tablet 81 mg PO QAM 07/26/20 12/23/21 atenolol 25 mg tablet 25 mg PO DAILY 06/25/21 12/23/21 ezetimibe 10 mg tablet 10 mg PO DAILY 06/25/21 12/23/21 levothyroxine 150 mcg tablet 150 mcg PO DAILY 06/25/21 12/23/21 (Synthroid) multivitamin 1 tab PO DAILY ##0 06/25/21 12/23/21 omega-3 fatty acids-vitamin E 1 cap PO DAILY 06/25/21 12/23/21 1,000 mg capsule furosemide 20 mg tablet 10 mg PO QAM 07/09/21 12/23/21 apixaban 5 mg tablet (Eliquis) 5 mg PO BID 07/22/21 12/23/21 cholecalciferol (vitamin D3) 50 50 mcg PO DAILY 07/22/21 12/23/21 mcg (2,000 unit) capsule potassium chloride 10 mEq 20 meq PO DAILY 07/22/21 12/23/21 capsule,extended release Previous Rx's Medication Instructions Recorded ondansetron 4 mg disintegrating 4 mg PO Q8H PRN nausea and 06/24/21 tablet vomiting #10 tabs tramadol 50 mg tablet 50 mg PO Q8H PRN pain #14 tabs 02/28/22 cyclobenzaprine 10 mg tablet 10 mg PO TID PRN muscle spasm #21 03/25/22 tabs tramadol 50 mg tablet 50 mg PO Q8H PRN pain #20 tabs 03/25/22 dexamethasone 4 mg tablet 4 mg PO DAILY #4 tabs 04/02/22 [id number] 1 cap PO Q6H PRN pain #10 caps 05/30/22 50 mg-300 mg-40 mg capsule (Fioricet) ondansetron 4 mg disintegrating 4 mg PO Q6-8H PRN nausea and 06/15/22 tablet vomiting #10 tabs rizatriptan 10 mg tablet (Maxalt) 10 mg PO Q2-4H PRN migraine 06/16/22 headache #10 tabs Allergies Allergy/AdvReac Type Severity Reaction Status Date / Time lisinopril Allergy Severe Anaphylaxis Verified 04/02/22 09:36 metformin AdvReac Vomiting Verified 04/02/22 09:36 Review of Systems Review of Systems Narrative: GENERAL: Denies chills, fatigue, malaise, fever, sweats, travel HEENT: Denies sinus pain, ear pain, sore throat, difficulty swallowing, neck pain RESPIRATORY: Denies dyspnea, cough, wheezing, hemoptysis, sputum. CARDIOVASCULAR: Denies chest pain, palpitations, orthopnea, edema GASTROINTESTINAL: Denies nausea, vomiting, abdominal pain, diarrhea, constipation, melena. : Denies dysuria, frequency, incontinence, hematuria, urinary retention, flank pain. MUSCULOSKELETAL: Denies weakness, joint pain, or bony pain SKIN: No rash, no erythema, no pruritus NEUROLOGIC: See HPI PSYCHIATRIC: No concerning psychosocial issues. 12 point review of systems is negative except for those stated above and HPI Patient History Medical History Atrial fibrillation Breast cancer Chronic back pain Chronic pancreatitis Depression Facet arthropathy, lumbar Heart murmur HLD (hyperlipidemia) Hypertension Hypothyroidism Lumbar radiculopathy Migraine headache Nose fracture (~06/29/21) Tinnitus UTI (urinary tract infection) Surgical History History of colonoscopy History of hysterectomy Hx of breast surgery Hx of cholecystectomy Hx of oophorectomy Hx of tonsillectomy Family History Father Brain tumor Congestive heart failure Mother Hypertension Stroke Grandfather Stroke Social History household members: spouse Smoking Status: Former smoker alcohol intake: current Smoking Status: Former smoker alcohol intake frequency: a few times a week Alcohol type: wine Substance Use Type: does not use Exam Initial Vital Signs Initial Vital Signs: Vital Signs Temperature 98.0 F 06/16/22 08:20 Pulse Rate 102 H 06/16/22 08:20 Respiratory Rate 20 06/16/22 08:20 Blood Pressure 204/98 H 06/16/22 08:20 Pulse Oximetry 97 06/16/22 08:20 Oxygen Delivery Method 06/16/22 08:20 GENERAL: Alert pleasant 71-year-old female appears uncomfortable in pain HEENT: Head atraumatic,EOMI, pupils reactive, face symmetric, moist mucous membranes CARDIOVASCULAR: Regular rate and rhythm without murmurs, rubs or gallops. RESPIRATORY: Breath sounds equal bilaterally, no wheezes rales or rhonchi. ABDOMEN: Soft, nontender. Normoactive bowel sounds all 4 quadrants. No guarding or rebound. EXTREMITIES: Normal range of motion, no clubbing or edema. Neurovascularly intact NEUROLOGICAL: Alert and oriented x4.Normal gait and speech. Assistant [employer] strength equal bilaterally SKIN: Warm, dry, no laceration, no petechiae, no rashes or lesions. Course Orders Ordered: Discontinued Medications Dexamethasone (Dexamethasone 10 Mg/Ml Vial) 6 mg IV NOW ONE Stop: 06/16/22 09:37 Last Admin: 06/16/22 10:15 Dose: 6 mg Documented By: FARIDEH Diphenhydramine HCl (Diphenhydramine 50 Mg/Ml Vial) 50 mg IV NOW ONE Stop: 06/16/22 10:03 Last Admin: 06/16/22 10:15 Dose: 50 mg Documented By: FARIDEH Sodium Chloride (Normal Saline 0.9%) 1,000 mls @ 1,000 mls/hr IV BOLUS ONE Stop: 06/16/22 09:41 Last Infusion: 06/16/22 09:55 Dose: 0 mls/hr Documented By: Admin: 06/16/22 08:55 Dose: 1,000 mls/hr Documented By: FARIDEH Acetaminophen (Ofirmev) 1,000 mg in 100 mls @ 400 mls/hr IV NOW ONE Stop: 06/16/22 10:14 Last Infusion: 06/16/22 10:41 Dose: 0 mls/hr Documented By: Admin: 06/16/22 10:25 Dose: 400 mls/hr Documented By: FARIDEH Metoclopramide HCl (Metoclopramide 10 Mg/2 Ml Inj) 10 mg IV NOW ONE Stop: 06/16/22 08:43 Last Admin: 06/16/22 08:55 Dose: 10 mg Documented By: FARIDEH Ondansetron HCl (Ondansetron 4 Mg/2 Ml Inj) 4 mg IV NOW ONE Stop: 06/16/22 10:03 Last Admin: 06/16/22 10:15 Dose: 4 mg Documented By: FARIDEH Pantoprazole Sodium (Pantoprazole 40 Mg Vial) 40 mg IV NOW ONE Stop: 06/16/22 08:43 Last Admin: 06/16/22 08:55 Dose: 40 mg Documented By: FARIDEH Sumatriptan Succinate (Sumatriptan 6 Mg/0.5 Ml Vial) 6 mg SUBCUT NOW ONE Stop: 06/16/22 08:43 Last Admin: 06/16/22 08:55 Dose: 6 mg Documented By: FARIDEH Vital Signs Vital signs: Vital Signs - 8 hr 06/16/22 11:27 Pulse Rate 76 Respiratory Rate 20 Blood Pressure 186/86 H Pulse Oximetry 99 Oxygen Delivery Method Room Air MDM - Headache Imaging Data CT scan - head: Radiologist's Impression: ient: Jackie Javed MR#: [id number] : 1950 Acct:[id number] Age/Sex: 71 / F Date of Service: 06/16/22 Loc: ED Accession Number: [id number] ?? Procedure: CT head/brain wo con Ordering Provider: Sandra Perales D.O. PROCEDURE:? CT HEAD/BRAIN WO CON ? INDICATIONS:? headache vomiting eliquis HTN ? TECHNIQUE:? Noncontrast 4.5 mm thick angled axial sections acquired from the foramen magnum to the vertex, with coronal and sagittal reformats.? For radiation dose reduction, the following was used:? automated exposure control, adjustment of mA and/or kV according to patient size.? ? COMPARISON:? [facility], CT, CT HEAD/BRAIN WO CON, 06/15/2022, 7:53. ? FINDINGS:? Image quality:? Excellent.? ? CSF spaces:? Basal cisterns are patent.? No extra-axial fluid collections.? Ventricles are normal in size and shape.? ? Brain:? No midline shift.? No intracranial masses or hemorrhage.? Moy-white matter interface is normal.? Mild periventricular white matter hypoattenuation probably chronic small vessel disease.? Old lacune in the left basal ganglia.? There are vascular calcifications.? Mild overall volume loss. ? Skull and face:? Calvarium and visualized facial bones are intact, without suspicious lesions.? ? Sinuses:? Partial opacification of the right maxillary sinus. ? IMPRESSION:? No acute intracranial abnormality.? Correlate clinically for sinusitis. ? ? Dictated by: Jose M Mariee M.D. on 06/16/2022 at 9:24 ? ? [facility] Narrative Medical decision making narrative: Patient presents for the 3rd day in a row migraine headaches. Chief Dilaudid yesterday I think she may have had a rebound headache this morning. She tried to take home anti nausea medications however. She was given Imitrex which she had no relief from. She is given a multitude of other medications and finally IV Tylenol seem to help. I did not want to give her Toradol again because she is still taking Eliquis. Very hypertensive worsening headache persistent vomiting again head CT was done which did not show any acute intracranial hemorrhage. Discharge Plan Departure Patient Disposition: Home Clinical Impression: Migraine Instructions: DI for Migraine Activity Restrictions/Additional Instructions: *You have been diagnosed with migraine headache *What to do: At this time please follow-up with her provider in 2 days as scheduled. I am sorry that you have recurrent persistent migraine headaches. Try to stay hydrated and drink fluids. I recommend going home and resting today. *Continue to take medications as directed --> [facility] [place] Maxalt 10 mg may repeat dose every 2 hours x2, do not exceed 30 mg in 24 hours. 9 take 1 tablet if no relief at 2:00 a.m. take another tablet, if no relief 2 hours then take a 3rd tablet then stop) *Follow up with your primary care provider in 2-3 days or call [phone] *Return to ER if you should have worsening headache persistent vomiting or any new, worsening or concerning symptoms Prescriptions: New rizatriptan [Maxalt] 10 mg tablet 10 mg PO Q2-4H PRN (Reason: migraine headache) Qty: 10 0RF Rx Instructions: do not exceed 3 doses per 24 hrs No Action aspirin 81 mg Tablet,Chewable 81 mg PO QAM ondansetron 4 mg tablet,disintegrating 4 mg PO Q8H PRN (Reason: nausea and vomiting) Qty: 10 0RF furosemide 20 mg Tablet 10 mg PO QAM cyclobenzaprine 10 mg tablet 10 mg PO TID PRN (Reason: muscle spasm) Qty: 21 0RF tramadol 50 mg tablet 50 mg PO Q8H PRN (Reason: pain) Qty: 20 0RF dexamethasone 4 mg tablet 4 mg PO DAILY Qty: 4 0RF [id number] [Fioricet] 50-300-40 mg capsule 1 cap PO Q6H PRN (Reason: pain) Qty: 10 0RF ondansetron 4 mg tablet,disintegrating 4 mg PO Q6-8H PRN (Reason: nausea and vomiting) Qty: 10 0RF multivitamin Tablet 1 tab PO DAILY Qty: 0 atenolol 25 mg Tablet 25 mg PO DAILY levothyroxine [Synthroid] 150 mcg Tablet 150 mcg PO DAILY ezetimibe 10 mg Tablet 10 mg PO DAILY omega-3 fatty acids-vitamin E 1,000 mg Capsule 1 cap PO DAILY tramadol 50 mg tablet 50 mg PO Q8H PRN (Reason: pain) Qty: 14 0RF potassium chloride 10 mEq capsule, extended release 20 meq PO DAILY cholecalciferol (vitamin D3) 50 mcg (2,000 unit) capsule 50 mcg PO DAILY Eliquis 5 mg tablet 5 mg PO BID Referrals: Kris Vasquez MD [Primary Care Provider] - Visit Report Forms: Patient Portal/API
[2022-06-16] MEDS: SUMAtriptan 6 MG/0.5 ML VIAL SUBCUT (08:55)
[2022-06-16] MEDS: METOCLOPRAMIDE 10 MG/2 ML INJ IV (08:55)
[2022-06-16] MEDS: SODIUM CHLORIDE 0.9% 1,000 ML 1000 ML IV (08:55)
[2022-06-16] MEDS: PANTOPRAZOLE 40 MG VIAL IV (08:55)
--- NOTE | 2022-06-16 09:10 | DI.CT.S_ITS ---
PROCEDURE: CT HEAD/BRAIN WO CON INDICATIONS: headache vomiting eliquis HTN TECHNIQUE: Noncontrast 4.5 mm thick angled axial sections acquired from the foramen magnum to the vertex, with coronal and sagittal reformats. For radiation dose reduction, the following was used: automated exposure control, adjustment of mA and/or kV according to patient size. COMPARISON: [facility], CT, CT HEAD/BRAIN WO CON, 06/15/2022, 7:53. FINDINGS: Image quality: Excellent. CSF spaces: Basal cisterns are patent. No extra-axial fluid collections. Ventricles are normal in size and shape. Brain: No midline shift. No intracranial masses or hemorrhage. Moy-white matter interface is normal. Mild periventricular white matter hypoattenuation probably chronic small vessel disease. Old lacune in the left basal ganglia. There are vascular calcifications. Mild overall volume loss. Skull and face: Calvarium and visualized facial bones are intact, without suspicious lesions. Sinuses: Partial opacification of the right maxillary sinus. IMPRESSION: No acute intracranial abnormality. Correlate clinically for sinusitis. Dictated by: Jose M Mariee M.D. on 06/16/2022 at 9:24 Approved by: Jose M Mariee M.D. on 06/16/2022 at 9:26
[2022-06-16] MEDS: DEXAMETHASONE 10 MG/ML VIAL 6 MG IV (10:15)
[2022-06-16] MEDS: diphenhydrAMINE 50 MG/ML VIAL IV (10:15)
[2022-06-16] MEDS: ONDANSETRON 4 MG/2 ML INJ IV (10:15)
[2022-06-16] MEDS: ACETAMINOPHEN IV 1,000 MG/100 ML VIAL 400 MG IV (10:25)
[2022-06-16 11:27] VITALS: BP 186/86; PULSE 76; RESP 20; O2SAT 99
== END 2022-06-16 11:28 | disposition home or self-care (01) ==
PROVIDERS: Emergency Provider Emergency Medicine; PCP Internal Medicine
DX: G43.909 Migraine, unspecified, not intractable, without status migrainosus (principal); R11.0 Nausea; Z79.01 Long term (current) use of anticoagulants
CPT/HCPCS: 70450; 96361; 96365; 96372; 96375; 99283; 99284; C9113; J0131; J1100; J1200; J2405; J2765; J3030

== ENCOUNTER 2022-06-17 08:25 | Emergency (ER) | payer MEDICARE, OTHER, SELFPAY ==
[2021-06-25 17:33] VITALS: BMI 28.1
[2022-06-17 08:37] VITALS: BP 174/85; PULSE 65; RESP 20; TEMP 36.8; O2SAT 97
--- NOTE | 2022-06-17 08:48 | ED_ITS ---
HPI - Headache General Chief Complaint: Headache Stated Complaint: Migraine 3 days Time Seen by Provider: 06/17/22 08:34 Mode of arrival: Family Vehicle History of Present Illness HPI Narrative: Patient is a 71-year-old female history of atrial fibrillation on Eliquis history of migraines presenting for the 3rd time to this emergency department this week actually it is the 3rd day in a row here she was also seen on August 14 at another facility so it is her 4th day in a row for migraine headaches. It is always on the right side she feels nauseous. She was previously given Dilaudid which she says helped instantly a. However every time she leaves the emergency department feet she feels slightly better she goes home headache always comes back at nighttime and she starts vomiting. Is a she was given dexamethasone IV Tylenol, Imitrex and multiple other medications. She said she did feel better. She was given a prescription for Maxalt as well. She says that did not help. She started getting headache began last night she is feeling nauseous but not vomiting today. He is tired of coming to the emergency department. She denies numbness tingling or weakness. She is nauseous but no vomiting. She has no abdominal pain. She has no fever no chills no neck pain. She has had multiple head CTs this week. Related Data Home Medications Medication Instructions Recorded Confirmed aspirin 81 mg chewable tablet 81 mg PO QAM 07/26/20 12/23/21 atenolol 25 mg tablet 25 mg PO DAILY 06/25/21 12/23/21 ezetimibe 10 mg tablet 10 mg PO DAILY 06/25/21 12/23/21 levothyroxine 150 mcg tablet 150 mcg PO DAILY 06/25/21 12/23/21 (Synthroid) multivitamin 1 tab PO DAILY ##0 06/25/21 12/23/21 omega-3 fatty acids-vitamin E 1 cap PO DAILY 06/25/21 12/23/21 1,000 mg capsule furosemide 20 mg tablet 10 mg PO QAM 07/09/21 12/23/21 apixaban 5 mg tablet (Eliquis) 5 mg PO BID 07/22/21 12/23/21 cholecalciferol (vitamin D3) 50 50 mcg PO DAILY 07/22/21 12/23/21 mcg (2,000 unit) capsule potassium chloride 10 mEq 20 meq PO DAILY 07/22/21 12/23/21 capsule,extended release Previous Rx's Medication Instructions Recorded ondansetron 4 mg disintegrating 4 mg PO Q8H PRN nausea and 06/24/21 tablet vomiting #10 tabs tramadol 50 mg tablet 50 mg PO Q8H PRN pain #14 tabs 02/28/22 cyclobenzaprine 10 mg tablet 10 mg PO TID PRN muscle spasm #21 03/25/22 tabs tramadol 50 mg tablet 50 mg PO Q8H PRN pain #20 tabs 03/25/22 dexamethasone 4 mg tablet 4 mg PO DAILY #4 tabs 04/02/22 kgwgqrzmsu-bgukcrehexidb-xzxxohfa 1 cap PO Q6H PRN pain #10 caps 05/30/22 50 mg-300 mg-40 mg capsule (Fioricet) ondansetron 4 mg disintegrating 4 mg PO Q6-8H PRN nausea and 06/15/22 tablet vomiting #10 tabs rizatriptan 10 mg tablet (Maxalt) 10 mg PO Q2-4H PRN migraine 06/16/22 headache #10 tabs nortriptyline 10 mg capsule 10 mg PO BEDTIME #30 caps 06/17/22 prednisone 20 mg tablet 40 mg PO DAILY #10 tabs 06/17/22 rimegepant 75 mg disintegrating 75 mg PO Q OTHER DAY PRN migraine 06/17/22 tablet headache #10 tabs Allergies Allergy/AdvReac Type Severity Reaction Status Date / Time lisinopril Allergy Severe Anaphylaxis Verified 06/17/22 09:10 metformin AdvReac Vomiting Verified 06/17/22 09:10 Review of Systems Review of Systems Narrative: GENERAL: Denies chills, fatigue, malaise, fever, sweats, travel HEENT: Denies sinus pain, ear pain, sore throat, difficulty swallowing, neck chelle n RESPIRATORY: Denies dyspnea, cough, wheezing, hemoptysis, sputum. CARDIOVASCULAR: Denies chest pain, palpitations, orthopnea, edema GASTROINTESTINAL: See HPI : Denies dysuria, frequency, incontinence, hematuria, urinary retention, flank pain. MUSCULOSKELETAL: Denies weakness, joint pain, or bony pain SKIN: No rash, no erythema, no pruritus NEUROLOGIC: See HPI PSYCHIATRIC: No concerning psychosocial issues. 12 point review of systems is negative except for those stated above and HPI Patient History Medical History Atrial fibrillation Breast cancer Chronic back pain Chronic pancreatitis Depression Facet arthropathy, lumbar Heart murmur HLD (hyperlipidemia) Hypertension Hypothyroidism Lumbar radiculopathy Migraine headache Nose fracture (~06/29/21) Tinnitus UTI (urinary tract infection) Surgical History History of colonoscopy History of hysterectomy Hx of breast surgery Hx of cholecystectomy Hx of oophorectomy Hx of tonsillectomy Family History Father Brain tumor Congestive heart failure Mother Hypertension Stroke Grandfather Stroke Social History household members: spouse Smoking Status: Former smoker alcohol intake: current Smoking Status: Former smoker alcohol intake frequency: a few times a week Alcohol type: wine Substance Use Type: does not use Exam Initial Vital Signs Initial Vital Signs: Vital Signs Temperature 98.3 F 06/17/22 08:37 Pulse Rate 65 06/17/22 08:37 Respiratory Rate 20 06/17/22 08:37 Blood Pressure 174/85 H 06/17/22 08:37 Pulse Oximetry 97 06/17/22 08:37 Oxygen Delivery Method 06/17/22 08:37 GENERAL: Alert pleasant 71-year-old female appears uncomfortable in moderate distress HEENT: Head atraumatic,EOMI, pupils reactive, face symmetric, moist mucous membranes CARDIOVASCULAR: Regular rate and rhythm without murmurs, rubs or gallops. RESPIRATORY: Breath sounds equal bilaterally, no wheezes rales or rhonchi. ABDOMEN: Soft, nontender. Normoactive bowel sounds all 4 quadrants. No guarding or rebound. EXTREMITIES: Normal range of motion, no clubbing or edema. Neurovascularly intact NEUROLOGICAL: Alert and oriented x4.Normal gait and speech. Cranial nerves II through XII grossly intact. Good uwcqwa-ez-avac, good acfb-nd-jmxh, strength equal bilaterally, no dysarthria or aphasia, sensation in tact to soft touch bilaterally, no visual changes, no facial droop SKIN: Warm, dry, no laceration, no petechiae, no rashes or lesions. Course Orders Ordered: ED Orders 06/17/22 09:20 CBC Auto Diff [Complete Blood Count AUTO DIFF] Stat CMP [Comprehensive Metabolic Panel] Stat Lactate (Lactic Acid) Stat Procalcitonin Stat Discontinued Medications Dihydroergotamine Mesylate (Dihydroergotamine 1 Mg/Ml Ampul) 1 mg IV NOW ONE Stop: 06/17/22 08:45 Last Admin: 06/17/22 09:36 Dose: 1 mg Documented By: BEVERLY Diphenhydramine HCl (Diphenhydramine 50 Mg/Ml Vial) 50 mg IV NOW ONE Stop: 06/17/22 08:45 Last Admin: 06/17/22 09:35 Dose: 50 mg Documented By: BEVERLY Sodium Chloride (Normal Saline 0.9%) 1,000 mls @ 1,000 mls/hr IV BOLUS ONE Stop: 06/17/22 09:38 Last Infusion: 06/17/22 11:00 Dose: 0 mls/hr Documented By: Admin: 06/17/22 09:33 Dose: 1,000 mls/hr Documented By: BEVERLY Metoclopramide HCl (Metoclopramide 10 Mg/2 Ml Inj) 10 mg IV NOW ONE Stop: 06/17/22 08:45 Last Admin: 06/17/22 09:33 Dose: 10 mg Documented By: BEVERLY Ondansetron HCl (Ondansetron 4 Mg/2 Ml Inj) 4 mg IV NOW ONE Stop: 06/17/22 10:28 Last Admin: 06/17/22 10:33 Dose: 4 mg Documented By: VARUN Pantoprazole Sodium (Pantoprazole 40 Mg Vial) 40 mg IV NOW ONE Stop: 06/17/22 10:28 Last Admin: 06/17/22 10:34 Dose: 40 mg Documented By: VARUN Vital Signs Vital signs: Vital Signs - 8 hr 06/17/22 08:37 Temperature 98.3 F Pulse Rate 65 Respiratory Rate 20 Blood Pressure 174/85 H Pulse Oximetry 97 Oxygen Delivery Method Room Air MDM - Headache Lab Data Result diagrams: 06/17/22 09:20 06/17/22 09:20 Labs: Lab Results 06/17/22 06/17/22 06/17/22 Range/Units 09:20 09:20 09:20 WBC 10.6 (4.5-11.0) X10^3/uL RBC 4.63 (4.0-5.2) X10^6/uL Hgb 14.4 (12.0-16.0) g/dL Hct 42.1 (36-46) % MCV 90.9 (80-100) fL MCH 31.0 (26-34) PG MCHC 34.1 (30-36) % RDW 14.6 (11.6-14.8) % Plt Count 203 (150-400) X10^3/uL Neut % (Auto) 61.6 (50-75) % Lymph % (Auto) 28.5 (25-40) % [place] % (Auto) 8.8 (3-14) % Eos % (Auto) 0.4 L (2-4) % Baso % (Auto) 0.7 (0-2) % Neut # (Auto) 6500 (2667-4122) /uL Lymph # (Auto) 3000 (0476-9642) /uL [place] # (Auto) 900 (0-900) /uL Eos # (Auto) 0 (0-450) /uL Baso # (Auto) 100 (0-100) /uL Sodium 140 (137-145) mmol/L Potassium 4.3 (3.4-5.1) mmol/L Chloride 106 (98-107) mmol/L Carbon Dioxide 23 (22-32) mmol/L BUN 20 H (7-17) mg/dL Creatinine 1.21 H (0.52-1.04) mg/dL Estimated GFR 47 L (>60) mL/min BUN/Creatinine Ratio 16.5 (6-22) Glucose 115 H (80-110) mg/dL Lactate 1.4 (0.7-2.1) mmol/L Calcium 9.5 (8.4-10.2) mg/dL Total Bilirubin 0.7 (0.2-1.3) mg/dL AST 45 H (14-36) IU/L ALT 27 (<35) IU/L Alkaline Phosphatase 76 (38-126) U/L Total Protein 7.1 (6.3-8.2) g/dL Albumin 4.1 (3.5-5.0) g/dL Globulin 3.0 (1.7-4.1) g/dL Albumin/Globulin Ratio 1.4 (1.0-2.8) Procalcitonin (<0.5) ng/mL 06/17/22 Range/Units 09:20 WBC (4.5-11.0) X10^3/uL RBC (4.0-5.2) X10^6/uL Hgb (12.0-16.0) g/dL Hct (36-46) % MCV (80-100) fL MCH (26-34) PG MCHC (30-36) % RDW (11.6-14.8) % Plt Count (150-400) X10^3/uL Neut % (Auto) (50-75) % Lymph % (Auto) (25-40) % [place] % (Auto) (3-14) % Eos % (Auto) (2-4) % Baso % (Auto) (0-2) % Neut # (Auto) (8017-0651) /uL Lymph # (Auto) (3275-1806) /uL [place] # (Auto) (0-900) /uL Eos # (Auto) (0-450) /uL Baso # (Auto) (0-100) /uL Sodium (137-145) mmol/L Potassium (3.4-5.1) mmol/L Chloride (98-107) mmol/L Carbon Dioxide (22-32) mmol/L BUN (7-17) mg/dL Creatinine (0.52-1.04) mg/dL Estimated GFR (>60) mL/min BUN/Creatinine Ratio (6-22) Glucose (80-110) mg/dL Lactate (0.7-2.1) mmol/L Calcium (8.4-10.2) mg/dL Total Bilirubin (0.2-1.3) mg/dL AST (14-36) IU/L ALT (<35) IU/L Alkaline Phosphatase (38-126) U/L Total Protein (6.3-8.2) g/dL Albumin (3.5-5.0) g/dL Globulin (1.7-4.1) g/dL Albumin/Globulin Ratio (1.0-2.8) Procalcitonin 0.03 (<0.5) ng/mL MDM Narrative Medical decision making narrative: Patient again here for status migraine. Similar symptoms as previously. Today given DHE medication Reglan and Benadryl. Symptoms have relieved some but she still has a headache. Still mildly nauseous and given Zofran which does seem to help. 10:11 Dr. Grace, neurology from [facility] has been updated pa carrillo's symptoms test results. This time recommends steroid for 5 days also a CGRP medication Rimegepant, nortriptyline at night time may also be very helpful for her. States that an outpatient MRI is probably also indicated. She agrees with all previous treatment, and treatment today. The patient overall feels ready to go home. She is given all the prescriptions Neurology recommended. She has a primary care appointment tomorrow. She has no neurologic deficits. She has had multiple head CTs this week headache is not any worse today. At this time I see no need for imaging today. Discharge Plan Departure Patient Disposition: Home Clinical Impression: Migraine Instructions: DI for Migraine Activity Restrictions/Additional Instructions: *You have been diagnosed with migraine headache *What to do: *Continue to take medications as directed-> SENT TO [facility] [place] Prednisone 40 mg once a day for 5 days Nortriptyline 10 mg at night Rimegepant 75mg once every other day if needed for acute headache, if you do not have a headache do not take *Follow up with your primary care provider in 2-3 days or call [phone] *Return to ER if you should have [such as] [or] any new, worsening or concerning symptoms Prescriptions: New prednisone 20 mg tablet 40 mg PO DAILY Qty: 10 0RF rimegepant 75 mg tablet,disintegrating 75 mg PO Q OTHER DAY PRN (Reason: migraine headache) Qty: 10 0RF nortriptyline 10 mg capsule 10 mg PO BEDTIME Qty: 30 0RF No Action aspirin 81 mg Tablet,Chewable 81 mg PO QAM ondansetron 4 mg tablet,disintegrating 4 mg PO Q8H PRN (Reason: nausea and vomiting) Qty: 10 0RF furosemide 20 mg Tablet 10 mg PO QAM cyclobenzaprine 10 mg tablet 10 mg PO TID PRN (Reason: muscle spasm) Qty: 21 0RF tramadol 50 mg tablet 50 mg PO Q8H PRN (Reason: pain) Qty: 20 0RF dexamethasone 4 mg tablet 4 mg PO DAILY Qty: 4 0RF bxurncsfnf-ihrtcbalpagup-mnsi [Fioricet] 50-300-40 mg capsule 1 cap PO Q6H PRN (Reason: pain) Qty: 10 0RF ondansetron 4 mg tablet,disintegrating 4 mg PO Q6-8H PRN (Reason: nausea and vomiting) Qty: 10 0RF rizatriptan [Maxalt] 10 mg tablet 10 mg PO Q2-4H PRN (Reason: migraine headache) Qty: 10 0RF Rx Instructions: do not exceed 3 doses per 24 hrs multivitamin Tablet 1 tab PO DAILY Qty: 0 atenolol 25 mg Tablet 25 mg PO DAILY levothyroxine [Synthroid] 150 mcg Tablet 150 mcg PO DAILY ezetimibe 10 mg Tablet 10 mg PO DAILY omega-3 fatty acids-vitamin E 1,000 mg Capsule 1 cap PO DAILY tramadol 50 mg tablet 50 mg PO Q8H PRN (Reason: pain) Qty: 14 0RF potassium chloride 10 mEq capsule, extended release 20 meq PO DAILY cholecalciferol (vitamin D3) 50 mcg (2,000 unit) capsule 50 mcg PO DAILY Eliquis 5 mg tablet 5 mg PO BID Referrals: Kris Vasquez MD [Primary Care Provider] -
[2022-06-17 09:28] LABS: Add Manual Diff / Slide Review NO; Basophils Absolute Auto 100 /uL (0-100); Basophils Percent Auto 0.7 % (0-2); Eosinophils Absolute Auto 0 /uL (0-450); Eosinophils Percent Auto 0.4 % (2-4); Hematocrit 42.1 % (36-46); Hemoglobin 14.4 g/dL (12.0-16.0); Lymphocytes Absolute Auto 3000 /uL (1100-4500); Lymphocytes Percent Auto 28.5 % (25-40); Mean Corpuscular HGB Conc 34.1 % (30-36); Mean Corpuscular Volume 90.9 fL (80-100); Monocytes Absolute Auto 900 /uL (0-900); Monocytes Percent Auto 8.8 % (3-14); Neutrophils Absolute Auto 6500 /uL (1500-7000); Neutrophils Percent Auto 61.6 % (50-75); Platelet Count 203 X10^3/uL (150-400); Red Blood Cell Count 4.63 X10^6/uL (4.0-5.2); Red Cell Distribution Width 14.6 % (11.6-14.8); White Blood Cell Count 10.6 X10^3/uL (4.5-11.0)
[2022-06-17] MEDS: METOCLOPRAMIDE 10 MG/2 ML INJ IV (09:33)
[2022-06-17] MEDS: SODIUM CHLORIDE 0.9% 1,000 ML 1000 ML IV (09:33)
[2022-06-17] MEDS: diphenhydrAMINE 50 MG/ML VIAL IV (09:35)
[2022-06-17] MEDS: DIHYDROERGOTAMINE 1 MG/ML AMPUL IV (09:36)
[2022-06-17 09:52] LABS: Lactate (Lactic Acid) 1.4 mmol/L (0.7-2.1)
[2022-06-17 09:53] LABS: Alanine Aminotransferase 27 IU/L (<35); Albumin 4.1 g/dL (3.5-5.0); Albumin Globulin Ratio 1.4 (1.0-2.8); Alkaline Phosphatase 76 U/L (38-126); BUN Creatinine Ratio 16.5 (6-22); Bilirubin Total 0.7 mg/dL (0.2-1.3); Blood Urea Nitrogen 20 mg/dL (7-17); Calcium 9.5 mg/dL (8.4-10.2); Carbon Dioxide 23 mmol/L (22-32); Chloride 106 mmol/L (98-107); Estimated Glomerular Filt Rate 47 mL/min (>60); Glucose 115 mg/dL (80-110); Potassium 4.3 mmol/L (3.4-5.1); Sodium 140 mmol/L (137-145); Total Protein 7.1 g/dL (6.3-8.2)
[2022-06-17 09:55] LABS: HEMOLYSIS 63 (0-50)
[2022-06-17 09:56] LABS: Aspartate Aminotransferase 45 IU/L (14-36)
[2022-06-17 10:10] LABS: Procalcitonin 0.03 ng/mL (<0.5)
[2022-06-17] MEDS: ONDANSETRON 4 MG/2 ML INJ IV (10:33)
[2022-06-17] MEDS: PANTOPRAZOLE 40 MG VIAL IV (10:34)
[2022-06-17 12:06] VITALS: BP 177/84; PULSE 65; TEMP 36.7; O2SAT 98
== END 2022-06-17 12:16 | disposition home or self-care (01) ==
PROVIDERS: Emergency Provider Emergency Medicine; PCP Internal Medicine
DX: G43.909 Migraine, unspecified, not intractable, without status migrainosus (principal); R11.0 Nausea
CPT/HCPCS: 36415; 80053; 83605; 84145; 85025; 96361; 96374; 96375; 99284; C9113; J1110; J1200; J2405; J2765

== ENCOUNTER 2022-06-18 07:20 | Emergency (ER) | payer MEDICARE, OTHER, SELFPAY ==
[2021-06-25 17:33] VITALS: BMI 28.1
[2022-06-18 07:25] VITALS: BP 193/88; PULSE 59; RESP 18; TEMP 36.6; O2SAT 97
--- NOTE | 2022-06-18 07:45 | ED.GENADULT ---
HPI - General Adult General Chief complaint: Headache Stated complaint: migraine Time Seen by Provider: 06/18/22 07:32 Source: patient Mode of arrival: Ambulatory Limitations: no limitations History of Present Illness HPI narrative: Patient is a 71-year-old female. Had multiple visits in the past week and also in the past year for migraine headaches. She does not have a neurologist. She is on anticoagulation for AFib. She had an appointment with her primary doctor today however she states that she is had fairly severe nausea for the past 24 hours which brought her to the emergency department this morning. States the headache she is also currently having is about the same as what it was yesterday. She does have Zofran at home which has not helped her headache. No other anti nausea medications. No abdominal pain just nausea. No chest pain. No shortness of breath. Related Data Home Medications Medication Instructions Recorded Confirmed aspirin 81 mg chewable tablet 81 mg PO QAM 07/26/20 12/23/21 atenolol 25 mg tablet 25 mg PO DAILY 06/25/21 12/23/21 ezetimibe 10 mg tablet 10 mg PO DAILY 06/25/21 12/23/21 levothyroxine 150 mcg tablet 150 mcg PO DAILY 06/25/21 12/23/21 (Synthroid) multivitamin 1 tab PO DAILY ##0 06/25/21 12/23/21 omega-3 fatty acids-vitamin E 1 cap PO DAILY 06/25/21 12/23/21 1,000 mg capsule furosemide 20 mg tablet 10 mg PO QAM 07/09/21 12/23/21 apixaban 5 mg tablet (Eliquis) 5 mg PO BID 07/22/21 12/23/21 cholecalciferol (vitamin D3) 50 50 mcg PO DAILY 07/22/21 12/23/21 mcg (2,000 unit) capsule potassium chloride 10 mEq 20 meq PO DAILY 07/22/21 12/23/21 capsule,extended release Previous Rx's Medication Instructions Recorded ondansetron 4 mg disintegrating 4 mg PO Q8H PRN nausea and 06/24/21 tablet vomiting #10 tabs tramadol 50 mg tablet 50 mg PO Q8H PRN pain #14 tabs 02/28/22 cyclobenzaprine 10 mg tablet 10 mg PO TID PRN muscle spasm #21 03/25/22 tabs tramadol 50 mg tablet 50 mg PO Q8H PRN pain #20 tabs 03/25/22 dexamethasone 4 mg tablet 4 mg PO DAILY #4 tabs 04/02/22 mxgcenhidu-uzkfcgegxract-fbzdzlwc 1 cap PO Q6H PRN pain #10 caps 05/30/22 50 mg-300 mg-40 mg capsule (Fioricet) ondansetron 4 mg disintegrating 4 mg PO Q6-8H PRN nausea and 06/15/22 tablet vomiting #10 tabs rizatriptan 10 mg tablet (Maxalt) 10 mg PO Q2-4H PRN migraine 06/16/22 headache #10 tabs nortriptyline 10 mg capsule 10 mg PO BEDTIME #30 caps 06/17/22 prednisone 20 mg tablet 40 mg PO DAILY #10 tabs 06/17/22 rimegepant 75 mg disintegrating 75 mg PO Q OTHER DAY PRN migraine 06/17/22 tablet headache #10 tabs metoclopramide HCl 10 mg tablet 10 mg PO Q6H PRN nausea and 06/18/22 (Reglan) vomiting #14 tabs Allergies Allergy/AdvReac Type Severity Reaction Status Date / Time lisinopril Allergy Severe Anaphylaxis Verified 06/17/22 09:10 metformin AdvReac Vomiting Verified 06/17/22 09:10 Review of Systems Constitutional Constitutional: Denies fever(s) and Reports headache(s) ENT Ears, Nose, Mouth, and Throat: Reports headache(s) Cardiovascular Cardiovascular: Denies chest pain Respiratory Respiratory: Reports system reviewed and no additional complaints, except as documented Gastrointestinal Gastrointestinal: Denies abdominal pain and Reports nausea Genitourinary Genitourinary: Reports system reviewed and no additional complaints, except as documented Musculoskeletal Musculoskeletal: Reports system reviewed and no additional complaints, except as documented Integumentary/Breasts Skin/Breast: Reports system reviewed and no additional complaints, except as documented Neurologic Neurologic: Reports headache(s) Hematologic/Lymphatic On Anticoagulants: Yes Patient History Medical History Atrial fibrillation Breast cancer Chronic back pain Chronic pancreatitis Depression Facet arthropathy, lumbar Heart murmur HLD (hyperlipidemia) Hypertension Hypothyroidism Lumbar radiculopathy Migraine headache Nose fracture (~06/29/21) Tinnitus UTI (urinary tract infection) Surgical History History of colonoscopy History of hysterectomy Hx of breast surgery Hx of cholecystectomy Hx of oophorectomy Hx of tonsillectomy Family History Father Brain tumor Congestive heart failure Mother Hypertension Stroke Grandfather Stroke Social History household members: spouse Smoking Status: Former smoker alcohol intake: current Smoking Status: Former smoker alcohol intake frequency: a few times a week Alcohol type: wine Substance Use Type: does not use Exam Initial Vital Signs Initial Vital Signs: Vital Signs Temperature 98 F 06/18/22 07:25 Pulse Rate 59 L 06/18/22 07:25 Respiratory Rate 18 06/18/22 07:25 Blood Pressure 193/88 H 06/18/22 07:25 Pulse Oximetry 97 06/18/22 07:25 Oxygen Delivery Method 06/18/22 07:25 Const General: cooperative HENMT Head: normal to inspection and normocephalic Resp Effort & Inspection: normal respiratory effort Auscultation: clear to auscultation bilaterally Cardio Rate: regular rate Rhythm: regular rhythm GI Inspection: normal to inspection and non-distended Skin General: no rashes or lesions noted Neuro General: patient alert, patient awake and moves all extremities Extrem General: No edema Scores GCS [place] coma scale eye opening: Spontaneous [place] coma scale verbal response: Orientated [place] coma scale motor response: [place] commands [place] coma scale total score: 15 Course Orders Ordered: Discontinued Medications Sodium Chloride (Normal Saline 0.9%) 1,000 mls @ 1,000 mls/hr IV BOLUS ONE Stop: 06/18/22 08:46 Last Infusion: 06/18/22 09:10 Dose: 0 mls/hr Documented By: Admin: 06/18/22 08:03 Dose: 1,000 mls/hr Documented By: KAVYA Metoclopramide HCl (Metoclopramide 10 Mg/2 Ml Inj) 10 mg IV NOW ONE Stop: 06/18/22 07:48 Last Admin: 06/18/22 08:03 Dose: 10 mg Documented By: KAVYA Vital Signs Vital signs: Vital Signs - 8 hr 06/18/22 07:25 Temperature 98 F Pulse Rate 59 L Respiratory Rate 18 Blood Pressure 193/88 H Pulse Oximetry 97 Oxygen Delivery Method Room Air Medical Decision Making MDM Narrative Medical decision making narrative: Patient is still having a headache but it is not worse today compared to yesterday per her report. She does have Zofran at home which does not seem to be working for her so will send home a prescription for Reglan. We can hold on further workup for now. Has had of her extensive workup over the past couple days. Discharge Plan Departure Patient Disposition: Home Clinical Impression: Migraine, Nausea Instructions: DI for Migraine, DI for Nausea -- Adult Activity Restrictions/Additional Instructions: I recommend that you continue to take all of your medications as directed and keep your follow-up appointments with your primary provider. He would probably benefit from a referral to see a neurologist. A prescription for an anti nausea medicine called Reglan/metoclopramide was sent to [facility]. You can use this as needed. Return to the emergency department for any new symptoms. Prescriptions: New metoclopramide HCl [Reglan] 10 mg tablet 10 mg PO Q6H PRN (Reason: nausea and vomiting) Qty: 14 0RF No Action aspirin 81 mg Tablet,Chewable 81 mg PO QAM ondansetron 4 mg tablet,disintegrating 4 mg PO Q8H PRN (Reason: nausea and vomiting) Qty: 10 0RF furosemide 20 mg Tablet 10 mg PO QAM cyclobenzaprine 10 mg tablet 10 mg PO TID PRN (Reason: muscle spasm) Qty: 21 0RF tramadol 50 mg tablet 50 mg PO Q8H PRN (Reason: pain) Qty: 20 0RF dexamethasone 4 mg tablet 4 mg PO DAILY Qty: 4 0RF ywowcdtwlu-sapyumirhnyod-xkiw [Fioricet] 50-300-40 mg capsule 1 cap PO Q6H PRN (Reason: pain) Qty: 10 0RF ondansetron 4 mg tablet,disintegrating 4 mg PO Q6-8H PRN (Reason: nausea and vomiting) Qty: 10 0RF rizatriptan [Maxalt] 10 mg tablet 10 mg PO Q2-4H PRN (Reason: migraine headache) Qty: 10 0RF Rx Instructions: do not exceed 3 doses per 24 hrs multivitamin Tablet 1 tab PO DAILY Qty: 0 atenolol 25 mg Tablet 25 mg PO DAILY levothyroxine [Synthroid] 150 mcg Tablet 150 mcg PO DAILY ezetimibe 10 mg Tablet 10 mg PO DAILY omega-3 fatty acids-vitamin E 1,000 mg Capsule 1 cap PO DAILY tramadol 50 mg tablet 50 mg PO Q8H PRN (Reason: pain) Qty: 14 0RF prednisone 20 mg tablet 40 mg PO DAILY Qty: 10 0RF rimegepant 75 mg tablet,disintegrating 75 mg PO Q OTHER DAY PRN (Reason: migraine headache) Qty: 10 0RF nortriptyline 10 mg capsule 10 mg PO BEDTIME Qty: 30 0RF potassium chloride 10 mEq capsule, extended release 20 meq PO DAILY cholecalciferol (vitamin D3) 50 mcg (2,000 unit) capsule 50 mcg PO DAILY Eliquis 5 mg tablet 5 mg PO BID Referrals: Kris Vasquez MD [Primary Care Provider] -
[2022-06-18] MEDS: METOCLOPRAMIDE 10 MG/2 ML INJ IV (08:03)
[2022-06-18] MEDS: SODIUM CHLORIDE 0.9% 1,000 ML 1000 ML IV (08:03)
[2022-06-18 08:30] VITALS: BP 188/90; PULSE 70; RESP 18; O2SAT 98
[2022-06-18 09:26] VITALS: BP 170/80; PULSE 60; RESP 18; O2SAT 98
== END 2022-06-18 09:27 | disposition home or self-care (01) ==
PROVIDERS: Emergency Provider Emergency Medicine; PCP Internal Medicine
DX: G43.909 Migraine, unspecified, not intractable, without status migrainosus (principal); R11.0 Nausea; Z79.01 Long term (current) use of anticoagulants
CPT/HCPCS: 96361; 96374; 99283; 99284; J2765

== ENCOUNTER 2022-06-19 08:00 | Emergency (ER) | payer MEDICARE, OTHER, SELFPAY ==
[2021-06-25 17:33] VITALS: BMI 28.1
[2022-06-19 08:17] VITALS: BP 187/83; PULSE 82; RESP 16; TEMP 36.6; O2SAT 99; BMI 28.5
--- NOTE | 2022-06-19 08:25 | ED.GENADULT ---
HPI - General Adult General Chief complaint: Nausea/Vomiting/Diarrhea Stated complaint: nauseous x2 weeks Time Seen by Provider: 06/19/22 08:03 Source: patient Mode of arrival: EMS Limitations: no limitations History of Present Illness HPI narrative: 71-year-old female who has had multiple visits over the past week for headaches and nausea. I evaluated her yesterday. She was given Reglan and Benadryl which improved her nausea tremendously. Was sent home with Reglan. She already had a prescription for Zofran. She has an appointment with a neurologist for her headache. After being discharged yesterday she started to have urinary tract infection like symptoms. She went to the walk-in clinic. Was prescribed Cipro. Has taken 1 dose of this. She states she went to bed last night feeling okay. Her headache is actually ?almost gone ?she did not have any nausea. She woke up at about 0300 hours in the morning started having vomiting. No abdominal pain. She did try the Zofran and the Reglan without any improvement. No back pain. No fevers. Is still having some urinary symptoms from her diagnosed infection yesterday. No diarrhea nor constipation. No rashes. She has had her gallbladder removed. Related Data Home Medications Medication Instructions Recorded Confirmed aspirin 81 mg chewable tablet 81 mg PO QAM 07/26/20 12/23/21 atenolol 25 mg tablet 25 mg PO DAILY 06/25/21 12/23/21 ezetimibe 10 mg tablet 10 mg PO DAILY 06/25/21 12/23/21 levothyroxine 150 mcg tablet 150 mcg PO DAILY 06/25/21 12/23/21 (Synthroid) multivitamin 1 tab PO DAILY ##0 06/25/21 12/23/21 omega-3 fatty acids-vitamin E 1 cap PO DAILY 06/25/21 12/23/21 1,000 mg capsule furosemide 20 mg tablet 10 mg PO QAM 07/09/21 12/23/21 apixaban 5 mg tablet (Eliquis) 5 mg PO BID 07/22/21 12/23/21 cholecalciferol (vitamin D3) 50 50 mcg PO DAILY 07/22/21 12/23/21 mcg (2,000 unit) capsule potassium chloride 10 mEq 20 meq PO DAILY 07/22/21 12/23/21 capsule,extended release Previous Rx's Medication Instructions Recorded ondansetron 4 mg disintegrating 4 mg PO Q8H PRN nausea and 06/24/21 tablet vomiting #10 tabs tramadol 50 mg tablet 50 mg PO Q8H PRN pain #14 tabs 02/28/22 cyclobenzaprine 10 mg tablet 10 mg PO TID PRN muscle spasm #21 03/25/22 tabs tramadol 50 mg tablet 50 mg PO Q8H PRN pain #20 tabs 03/25/22 dexamethasone 4 mg tablet 4 mg PO DAILY #4 tabs 04/02/22 [id number]-[id number] 1 cap PO Q6H PRN pain #10 caps 05/30/22 50 mg-300 mg-40 mg capsule (Fioricet) ondansetron 4 mg disintegrating 4 mg PO Q6-8H PRN nausea and 06/15/22 tablet vomiting #10 tabs rizatriptan 10 mg tablet (Maxalt) 10 mg PO Q2-4H PRN migraine 06/16/22 headache #10 tabs nortriptyline 10 mg capsule 10 mg PO BEDTIME #30 caps 06/17/22 prednisone 20 mg tablet 40 mg PO DAILY #10 tabs 06/17/22 rimegepant 75 mg disintegrating 75 mg PO Q OTHER DAY PRN migraine 06/17/22 tablet headache #10 tabs metoclopramide HCl 10 mg tablet 10 mg PO Q6H PRN nausea and 06/18/22 (Reglan) vomiting #14 tabs lorazepam 0.5 mg tablet (Ativan) 0.5 mg PO BID PRN nausea and 06/19/22 vomiting #10 tabs Allergies Allergy/AdvReac Type Severity Reaction Status Date / Time lisinopril Allergy Severe Anaphylaxis Verified 06/17/22 09:10 metformin AdvReac Vomiting Verified 06/17/22 09:10 Review of Systems Review of Systems ROS Unobtainable: All systems reviewed & are unremarkable except as noted in HPI and below Patient History Medical History Atrial fibrillation Breast cancer Chronic back pain Chronic pancreatitis Depression Facet arthropathy, lumbar Heart murmur HLD (hyperlipidemia) Hypertension Hypothyroidism Lumbar radiculopathy Migraine headache Nose fracture (~06/29/21) Tinnitus UTI (urinary tract infection) Surgical History History of colonoscopy History of hysterectomy Hx of breast surgery Hx of cholecystectomy Hx of oophorectomy Hx of tonsillectomy Family History Father Brain tumor Congestive heart failure Mother Hypertension Stroke Grandfather Stroke Social History household members: spouse Smoking Status: Former smoker alcohol intake: current Smoking Status: Former smoker alcohol intake frequency: a few times a week Alcohol type: wine Substance Use Type: does not use Exam Initial Vital Signs Initial Vital Signs: Vital Signs Temperature 97.8 F 06/19/22 08:17 Pulse Rate 82 06/19/22 08:17 Respiratory Rate 16 06/19/22 08:17 Blood Pressure 187/83 H 06/19/22 08:17 Pulse Oximetry 99 06/19/22 08:17 Oxygen Delivery Method 06/19/22 08:17 Const General: cooperative and No ill appearing HENMT Head: normal to inspection and normocephalic Resp Effort & Inspection: normal respiratory effort Auscultation: clear to auscultation bilaterally Cardio Rate: regular rate Rhythm: regular rhythm GI Inspection: normal to inspection Palpation: soft, No firm and No tender Back/Spine/Pelvis Back: No CVA tenderness Neuro General: patient alert, patient awake, patient oriented x3 and moves all extremities Speech: speech normal Gait: normal gait Extrem General: normal to inspection and capillary refill normal Psych Appearance: grossly normal and well kempt Course Orders Ordered: ED Orders 06/19/22 08:47 Complete Blood Count AUTO DIFF Stat Comprehensive Metabolic Panel Stat Lipase Stat Discontinued Medications Diphenhydramine HCl (Diphenhydramine 50 Mg/Ml Vial) 25 mg IV NOW ONE Stop: 06/19/22 08:25 Last Admin: 06/19/22 09:03 Dose: 25 mg Documented By: RB Sodium Chloride (Normal Saline 0.9%) 1,000 mls @ 1,000 mls/hr IV BOLUS ONE Stop: 06/19/22 09:23 Last Infusion: 06/19/22 10:22 Dose: 0 mls/hr Documented By: Admin: 06/19/22 09:03 Dose: 1,000 mls/hr Documented By: RB Lorazepam (Lorazepam 2 Mg/Ml Inj) 1 mg IV NOW ONE Stop: 06/19/22 10:31 Last Admin: 06/19/22 10:42 Dose: 1 mg Documented By: BEVERLY Metoclopramide HCl (Metoclopramide 10 Mg/2 Ml Inj) 10 mg IV NOW ONE Stop: 06/19/22 08:25 Last Admin: 06/19/22 09:04 Dose: 10 mg Documented By: RB Vital Signs Vital signs: Vital Signs - 8 hr 06/19/22 08:17 06/19/22 09:07 06/19/22 09:07 Temperature 97.8 F Pulse Rate 82 60 Respiratory Rate 16 Blood Pressure 187/83 H 188/91 H Pulse Oximetry 99 99 Oxygen Delivery Method Room Air 06/19/22 09:30 06/19/22 09:30 06/19/22 11:44 Temperature Pulse Rate 55 L 80 Respiratory Rate 20 18 Blood Pressure 175/84 H 170/80 H Pulse Oximetry 96 98 Oxygen Delivery Method Medical Decision Making Medical Records Medical records reviewed: Yes I reviewed the patient's medical records. Lab Data Lab results reviewed: Yes I reviewed the patient's lab results. Result diagrams: 06/19/22 08:47 06/19/22 08:47 Labs: Lab Results 06/19/22 06/19/22 Range/Units 08:47 08:47 WBC 8.0 (4.5-11.0) X10^3/uL RBC 4.66 (4.0-5.2) X10^6/uL Hgb 14.4 (12.0-16.0) g/dL Hct 42.2 (36-46) % MCV 90.7 (80-100) fL MCH 30.9 (26-34) PG MCHC 34.0 (30-36) % RDW 14.3 (11.6-14.8) % Plt Count 219 (150-400) X10^3/uL Neut % (Auto) 63.5 (50-75) % Lymph % (Auto) 25.0 (25-40) % [place] % (Auto) 8.1 (3-14) % Eos % (Auto) 2.0 (2-4) % Baso % (Auto) 1.4 (0-2) % Neut # (Auto) 5100 (3123-2511) /uL Lymph # (Auto) 2000 (4704-8012) /uL [place] # (Auto) 600 (0-900) /uL Eos # (Auto) 200 (0-450) /uL Baso # (Auto) 100 (0-100) /uL Sodium 138 (137-145) mmol/L Potassium 3.7 (3.4-5.1) mmol/L Chloride 103 (98-107) mmol/L Carbon Dioxide 26 (22-32) mmol/L BUN 17 (7-17) mg/dL Creatinine 1.23 H (0.52-1.04) mg/dL Estimated GFR 46 L (>60) mL/min BUN/Creatinine Ratio 13.8 (6-22) Glucose 129 H (80-110) mg/dL Calcium 9.3 (8.4-10.2) mg/dL Total Bilirubin 0.8 (0.2-1.3) mg/dL AST 29 (14-36) IU/L ALT 28 (<35) IU/L Alkaline Phosphatase 88 (38-126) U/L Total Protein 6.9 (6.3-8.2) g/dL Albumin 4.1 (3.5-5.0) g/dL Globulin 2.8 (1.7-4.1) g/dL Albumin/Globulin Ratio 1.5 (1.0-2.8) Lipase 84 (23-300) U/L MDM Narrative Medical decision making narrative: I evaluated the patient yesterday for headache and nausea. She was given Reglan Benadryl which improved her symptoms. Since that time she is been seen in the walk-in clinic started on antibiotics. Today she states her headache is better but she woke up in the morning with nausea. Physical exam is not consistent with pyelonephritis. Nausea could potentially be related to the antibiotics that she is taken. There is no other signs anaphylaxis or other allergic reactions. Also considered neurologic cause of her nausea. She is had multiple head CTs over the past couple days without any signs of increased pressure. She is an unremarkable neurologic exam. She did seem to improve with some Ativan. Will discharge home with Ativan that she can take as an adjunct to her other anti nausea medicines. We will have her follow-up with her primary doctor and also Neurology. She was given return precautions. She expressed understanding and agreement. Discharge Plan Departure Patient Disposition: Home Clinical Impression: Nausea Instructions: DI for Nausea -- Adult Activity Restrictions/Additional Instructions: I recommend that you continue to take the antibiotics that you were given yesterday for your urinary tract infection. I also recommend that you follow-up with your primary doctor and also the neurologist. I am going to add a medicine called Ativan. This medication along with your other nausea medicines can be very effective at controlling the nausea. The Ativan is not the primary nausea medication but should be taken if your Zofran/Reglan is not effective at home. Prescriptions: New lorazepam [Ativan] 0.5 mg tablet 0.5 mg PO BID PRN (Reason: nausea and vomiting) Qty: 10 0RF No Action aspirin 81 mg Tablet,Chewable 81 mg PO QAM ondansetron 4 mg tablet,disintegrating 4 mg PO Q8H PRN (Reason: nausea and vomiting) Qty: 10 0RF furosemide 20 mg Tablet 10 mg PO QAM cyclobenzaprine 10 mg tablet 10 mg PO TID PRN (Reason: muscle spasm) Qty: 21 0RF tramadol 50 mg tablet 50 mg PO Q8H PRN (Reason: pain) Qty: 20 0RF dexamethasone 4 mg tablet 4 mg PO DAILY Qty: 4 0RF [id number] [Fioricet] 50-300-40 mg capsule 1 cap PO Q6H PRN (Reason: pain) Qty: 10 0RF ondansetron 4 mg tablet,disintegrating 4 mg PO Q6-8H PRN (Reason: nausea and vomiting) Qty: 10 0RF rizatriptan [Maxalt] 10 mg tablet 10 mg PO Q2-4H PRN (Reason: migraine headache) Qty: 10 0RF Rx Instructions: do not exceed 3 doses per 24 hrs multivitamin Tablet 1 tab PO DAILY Qty: 0 atenolol 25 mg Tablet 25 mg PO DAILY levothyroxine [Synthroid] 150 mcg Tablet 150 mcg PO DAILY ezetimibe 10 mg Tablet 10 mg PO DAILY omega-3 fatty acids-vitamin E 1,000 mg Capsule 1 cap PO DAILY tramadol 50 mg tablet 50 mg PO Q8H PRN (Reason: pain) Qty: 14 0RF prednisone 20 mg tablet 40 mg PO DAILY Qty: 10 0RF rimegepant 75 mg tablet,disintegrating 75 mg PO Q OTHER DAY PRN (Reason: migraine headache) Qty: 10 0RF nortriptyline 10 mg capsule 10 mg PO BEDTIME Qty: 30 0RF metoclopramide HCl [Reglan] 10 mg tablet 10 mg PO Q6H PRN (Reason: nausea and vomiting) Qty: 14 0RF potassium chloride 10 mEq capsule, extended release 20 meq PO DAILY cholecalciferol (vitamin D3) 50 mcg (2,000 unit) capsule 50 mcg PO DAILY Eliquis 5 mg tablet 5 mg PO BID Referrals: Kris Vasquez MD [Primary Care Provider] - Visit Report Forms: Patient Portal/API
[2022-06-19 08:59] LABS: Add Manual Diff / Slide Review NO; Basophils Absolute Auto 100 /uL (0-100); Basophils Percent Auto 1.4 % (0-2); Eosinophils Absolute Auto 200 /uL (0-450); Hematocrit 42.2 % (36-46); Hemoglobin 14.4 g/dL (12.0-16.0); Lymphocytes Absolute Auto 2000 /uL (1100-4500); Mean Corpuscular Hemoglobin 30.9 PG (26-34); Mean Corpuscular Volume 90.7 fL (80-100); Monocytes Absolute Auto 600 /uL (0-900); Monocytes Percent Auto 8.1 % (3-14); Neutrophils Absolute Auto 5100 /uL (1500-7000); Neutrophils Percent Auto 63.5 % (50-75); Platelet Count 219 X10^3/uL (150-400); Red Blood Cell Count 4.66 X10^6/uL (4.0-5.2); Red Cell Distribution Width 14.3 % (11.6-14.8)
[2022-06-19] MEDS: diphenhydrAMINE 50 MG/ML VIAL 25 MG IV (09:03)
[2022-06-19] MEDS: SODIUM CHLORIDE 0.9% 1,000 ML 1000 ML IV (09:03)
[2022-06-19] MEDS: METOCLOPRAMIDE 10 MG/2 ML INJ IV (09:04)
[2022-06-19 09:06] LABS: Alanine Aminotransferase 28 IU/L (<35); Albumin 4.1 g/dL (3.5-5.0); Albumin Globulin Ratio 1.5 (1.0-2.8); Alkaline Phosphatase 88 U/L (38-126); Aspartate Aminotransferase 29 IU/L (14-36); BUN Creatinine Ratio 13.8 (6-22); Bilirubin Total 0.8 mg/dL (0.2-1.3); Blood Urea Nitrogen 17 mg/dL (7-17); Calcium 9.3 mg/dL (8.4-10.2); Carbon Dioxide 26 mmol/L (22-32); Chloride 103 mmol/L (98-107); Estimated Glomerular Filt Rate 46 mL/min (>60); Globulin 2.8 g/dL (1.7-4.1); Glucose 129 mg/dL (80-110); HEMOLYSIS < 15 (0-50); Lipase 84 U/L (23-300); Potassium 3.7 mmol/L (3.4-5.1); Sodium 138 mmol/L (137-145); Total Protein 6.9 g/dL (6.3-8.2)
[2022-06-19 09:07] VITALS: BP 188/91; PULSE 60; O2SAT 99
[2022-06-19 09:30] VITALS: BP 175/84; PULSE 55; RESP 20; O2SAT 96
[2022-06-19] MEDS: LORazepam 2 MG/ML INJ 1 MG IV (10:42)
[2022-06-19 11:44] VITALS: BP 170/80; PULSE 80; RESP 18; O2SAT 98
== END 2022-06-19 11:49 | disposition home or self-care (01) ==
PROVIDERS: Emergency Provider Emergency Medicine; PCP Internal Medicine
DX: R11.0 Nausea (principal); R51.9 Headache, unspecified
CPT/HCPCS: 36415; 80053; 83690; 85025; 96361; 96374; 96375; 99284; J1200; J2060; J2765

== ENCOUNTER 2022-08-08 19:00 | Emergency (ER) | payer MEDICARE, OTHER, SELFPAY ==
[2021-06-25 17:33] VITALS: BMI 28.1
[2022-08-08 19:05] VITALS: PULSE 74; O2SAT 99
[2022-08-08 19:07] VITALS: BP 157/91; PULSE 74; RESP 19; TEMP 36.6; O2SAT 99; BMI 28.5
--- NOTE | 2022-08-08 19:12 | ED_ITS ---
HPI - Back Pain/Injury General Chief Complaint: Back Pain/Injury Stated Complaint: Back spasm Time Seen by Provider: 08/08/22 19:12 Source: patient History of Present Illness HPI Narrative: 71-year-old female former smoker with history of migraines, AFib on Eliquis presents with ongoing right-sided upper thoracic and right-sided neck pain for the past 8 days. She states that she had gone to bed 8 days ago upon waking the following morning was having spasming in these regions. She has increased pain if she moves and improves with rest. She denies any systemic complaints such as dizziness, weakness or lightheadedness. She has no chest pain or shortness of breath. She denies nausea, vomiting, diarrhea. She denies any extremity numbness, tingling or weakness. She denies any known overuse or injury. She had seen her primary care provider a few days ago was put on Robaxin which is providing little to no relief. Related Data Home Medications Medication Instructions Recorded Confirmed aspirin 81 mg chewable tablet 81 mg PO QAM 07/26/20 12/23/21 atenolol 25 mg tablet 25 mg PO DAILY 06/25/21 12/23/21 ezetimibe 10 mg tablet 10 mg PO DAILY 06/25/21 12/23/21 levothyroxine 150 mcg tablet 150 mcg PO DAILY 06/25/21 12/23/21 (Synthroid) multivitamin 1 tab PO DAILY ##0 06/25/21 12/23/21 omega-3 fatty acids-vitamin E 1 cap PO DAILY 06/25/21 12/23/21 1,000 mg capsule furosemide 20 mg tablet 10 mg PO QAM 07/09/21 12/23/21 apixaban 5 mg tablet (Eliquis) 5 mg PO BID 07/22/21 12/23/21 cholecalciferol (vitamin D3) 50 50 mcg PO DAILY 07/22/21 12/23/21 mcg (2,000 unit) capsule potassium chloride 10 mEq 20 meq PO DAILY 07/22/21 12/23/21 capsule,extended release Previous Rx's Medication Instructions Recorded ondansetron 4 mg disintegrating 4 mg PO Q8H PRN nausea and 06/24/21 tablet vomiting #10 tabs tramadol 50 mg tablet 50 mg PO Q8H PRN pain #14 tabs 05/29/22 cyclobenzaprine 10 mg tablet 10 mg PO TID PRN muscle spasm #21 03/25/22 tabs tramadol 50 mg tablet 50 mg PO Q8H PRN pain #20 tabs 03/25/22 dexamethasone 4 mg tablet 4 mg PO DAILY #4 tabs 04/02/22 [id number]-hwfruocv 1 cap PO Q6H PRN pain #10 caps 05/30/22 50 mg-300 mg-40 mg capsule (Fioricet) ondansetron 4 mg disintegrating 4 mg PO Q6-8H PRN nausea and 06/15/22 tablet vomiting #10 tabs rizatriptan 10 mg tablet (Maxalt) 10 mg PO Q2-4H PRN migraine 06/16/22 headache #10 tabs nortriptyline 10 mg capsule 10 mg PO BEDTIME #30 caps 06/17/22 prednisone 20 mg tablet 40 mg PO DAILY #10 tabs 06/17/22 rimegepant 75 mg disintegrating 75 mg PO Q OTHER DAY PRN migraine 06/17/22 tablet headache #10 tabs metoclopramide HCl 10 mg tablet 10 mg PO Q6H PRN nausea and 06/18/22 (Reglan) vomiting #14 tabs lorazepam 0.5 mg tablet (Ativan) 0.5 mg PO BID PRN nausea and 06/19/22 vomiting #10 tabs diazepam 5 mg tablet (Valium) 5 mg PO BID-QID PRN muscle spasm 08/08/22 #10 tabs hydrocodone 5 mg-acetaminophen 325 1 tab PO Q4-6H PRN pain #10 tabs 08/08/22 mg tablet ketorolac 10 mg tablet 10 mg PO Q6H PRN pain #14 tabs 08/08/22 lidocaine 5 % topical patch 1 patch topical DAILY #15 ea 08/08/22 (Lidoderm) Allergies Allergy/AdvReac Type Severity Reaction Status Date / Time lisinopril Allergy Severe Anaphylaxis Verified 08/08/22 19:07 metformin AdvReac Vomiting Verified 08/08/22 19:07 Review of Systems Review of Systems Narrative: GENERAL: See HPI HEENT: Denies sinus pain, ear pain, sore throat, difficulty swallowing, dizziness. RESPIRATORY: Denies dyspnea, cough, wheezing, hemoptysis, sputum. CARDIOVASCULAR: Denies chest pain, palpitations, orthopnea, edema, GASTROINTESTINAL: Denies nausea, vomiting, abdominal pain, diarrhea, constipation, melena. : Denies dysuria, frequency, incontinence, hematuria, urinary retention. MUSCULOSKELETAL: See HPI SKIN: Denies rash, skin lesions, or other NEUROLOGIC: See HPI PSYCHIATRIC: No concerning psychosocial issues. 12 point review of systems is negative except for those stated above Patient History Medical History Atrial fibrillation Breast cancer Chronic back pain Chronic pancreatitis Depression Facet arthropathy, lumbar Heart murmur HLD (hyperlipidemia) Hypertension Hypothyroidism Lumbar radiculopathy Migraine headache Nose fracture (~06/29/21) Tinnitus UTI (urinary tract infection) Surgical History History of colonoscopy History of hysterectomy Hx of breast surgery Hx of cholecystectomy Hx of oophorectomy Hx of tonsillectomy Family History Father Brain tumor Congestive heart failure Mother Hypertension Stroke Grandfather Stroke Social History household members: spouse Smoking Status: Former smoker alcohol intake: current Smoking Status: Former smoker alcohol intake frequency: a few times a week Alcohol type: wine Substance Use Type: does not use Exam Narrative Exam Narrative: GENERAL: [71] year old patient appears stated age. Well-developed patient, in mild distress. HEAD: Atraumatic. Normocephalic. EYES: Pupils equal round and reactive. Extraocular motions intact. No scleral icterus. No injection or drainage. ENT: Nose without bleeding, purulent drainage. Throat without erythema, tonsillar hypertrophy or exudate. Airway patent. NECK: Trachea midline. Non tender CARDIOVASCULAR: Regular rate and rhythm without murmurs, gallops, or rubs. RESPIRATORY: Clear to auscultation. Breath sounds equal bilaterally. No wheezes, rales, or rhonchi. GASTROINTESTINAL: Abdomen soft, non-tender, nondistended. EXTREMITIES: No edema or joint tenderness. BACK: No midline bony pain, tenderness, step-offs. There is tenderness to palpation of right side thoracic paraspinal musculature that is worsened with r alvina of motion and palpation, spasm is palpated and right cervical paraspinals and trapezoid. No neurologic symptoms, no increasing symptoms with axial load. No rash, warmth or erythema NEURO: AOx3. SKIN: No rash or erythema of visible areas Initial Vital Signs Initial Vital Signs: Vital Signs Temperature 97.8 F 08/08/22 19:07 Pulse Rate 74 08/08/22 19:07 Respiratory Rate 19 08/08/22 19:07 Blood Pressure 157/91 H 08/08/22 19:07 Pulse Oximetry 99 08/08/22 19:07 Oxygen Delivery Method 08/08/22 19:07 Course Orders Ordered: Discontinued Medications Hydrocodone Bitart/Acetaminophen (Hydrocodone/Acet 5/325 Prepack) 1 bottle MISC SEEINSTR ONE Stop: 08/08/22 20:35 Diazepam (Diazepam 5 Mg Tablet) 5 mg PO NOW ONE Stop: 08/08/22 19:33 Last Admin: 08/08/22 19:40 Dose: 5 mg Documented By: TYSON Ketorolac Tromethamine (Ketorolac 30 Mg/Ml Vial) 30 mg IM NOW ONE Stop: 08/08/22 19:33 Last Admin: 08/08/22 19:40 Dose: 30 mg Documented By: TYSON Lidocaine (Lidocaine Patch 1 Each Adh..Patch) 1 each TOP NOW ONE Stop: 08/08/22 19:33 Last Admin: 08/08/22 19:40 Dose: 1 each Documented By: TYSON Vital Signs Vital signs: Vital Signs - 8 hr 08/08/22 19:07 Temperature 97.8 F Pulse Rate 74 Respiratory Rate 19 Blood Pressure 157/91 H Pulse Oximetry 99 Oxygen Delivery Method Room Air MDM - Back Pain/Injury MDM Narrative Medical decision making narrative: Patient has reassuring history and physical exam though the prescription she had been given do not seem to be helping. There is no trauma or known injury, no systemic findings such as fever or chills. No midline or bony tenderness. She has no neurologic findings or other red flags to suggest the potential of a neurosurgical emergency. It is recognized she is on anticoagulation, however her history and physical are not consistent with spinal hematoma, though it was considered. She has some, although not complete, improvement in her symptoms after the above-stated therapies. She is sent home with a prepack, prescriptions to the pharmacy of her choice, extensive return precautions and questions have been answered to her apparent satisfaction. Discharge Plan Departure Patient Disposition: Home Clinical Impression: Spasm of thoracic back muscle, Cervical paraspinal muscle spasm Instructions: DI for Back Spasm Activity Restrictions/Additional Instructions: *You have been diagnosed with [right thoracic and cervical paraspinal spasm] *What to do: *Please continue to take your regular medications as directed. DO NOT take Ultram (tramadol) and Hydrocodone at the same time as they are in the same family. Also, I wrote you a prescription for Valium which is intended to replace the Methocarbamol [x ] New medication prescriptions sent to your pharmacy: [ [facility]] [ ] New medication written as a paper prescription [ ] No new medications given *Please follow up with your primary care provider in 2-3 days, call for an appointment. Let them know you were seen in the Emergency Department and that we ask that you be seen in follow up. We will electronically transmit a record of today's note if your PCP is in our system *Return to Emergency Department if you should have any new, worsening or concerning symptoms, such as [fever greater than 101 F, shaking chills, worsening pain, persistent vomiting or other bothersome symptoms] You have been prescribed a short course of narcotic medications. These are potentially dangerous and addictive medications that should be used carefully. While on these medications you cannot drive or operate heavy machinery. Additionally, you cannot sign legal documents or perform any duties such as this. 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 Please understand that we cannot provide further refills of narcotics or controlled substances through the ED and your pain management will need to be through your Primary Care Provider Prescriptions: New hydrocodone-acetaminophen 5-325 mg tablet 1 tab PO Q4-6H PRN (Reason: pain) Qty: 10 0RF ketorolac 10 mg tablet 10 mg PO Q6H PRN (Reason: pain) Qty: 14 0RF lidocaine [Lidoderm] 5 % adhesive patch,medicated 1 patch TOP DAILY Qty: 15 0RF Rx Instructions: leave on most painful area for 12 hrs diazepam [Valium] 5 mg tablet 5 mg PO BID-QID PRN (Reason: muscle spasm) Qty: 10 0RF No Action aspirin 81 mg Tablet,Chewable 81 mg PO QAM ondansetron 4 mg tablet,disintegrating 4 mg PO Q8H PRN (Reason: nausea and vomiting) Qty: 10 0RF furosemide 20 mg Tablet 10 mg PO QAM cyclobenzaprine 10 mg tablet 10 mg PO TID PRN (Reason: muscle spasm) Qty: 21 0RF tramadol 50 mg tablet 50 mg PO Q8H PRN (Reason: pain) Qty: 20 0RF dexamethasone 4 mg tablet 4 mg PO DAILY Qty: 4 0RF [id number] [Fioricet] 50-300-40 mg capsule 1 cap PO Q6H PRN (Reason: pain) Qty: 10 0RF ondansetron 4 mg tablet,disintegrating 4 mg PO Q6-8H PRN (Reason: nausea and vomiting) Qty: 10 0RF rizatriptan [Maxalt] 10 mg tablet 10 mg PO Q2-4H PRN (Reason: migraine headache) Qty: 10 0RF Rx Instructions: do not exceed 3 doses per 24 hrs multivitamin Tablet 1 tab PO DAILY Qty: 0 atenolol 25 mg Tablet 25 mg PO DAILY levothyroxine [Synthroid] 150 mcg Tablet 150 mcg PO DAILY ezetimibe 10 mg Tablet 10 mg PO DAILY omega-3 fatty acids-vitamin E 1,000 mg Capsule 1 cap PO DAILY tramadol 50 mg tablet 50 mg PO Q8H PRN (Reason: pain) Qty: 14 0RF prednisone 20 mg tablet 40 mg PO DAILY Qty: 10 0RF rimegepant 75 mg tablet,disintegrating 75 mg PO Q OTHER DAY PRN (Reason: migraine headache) Qty: 10 0RF nortriptyline 10 mg capsule 10 mg PO BEDTIME Qty: 30 0RF metoclopramide HCl [Reglan] 10 mg tablet 10 mg PO Q6H PRN (Reason: nausea and vomiting) Qty: 14 0RF lorazepam [Ativan] 0.5 mg tablet 0.5 mg PO BID PRN (Reason: nausea and vomiting) Qty: 10 0RF potassium chloride 10 mEq capsule, extended release 20 meq PO DAILY cholecalciferol (vitamin D3) 50 mcg (2,000 unit) capsule 50 mcg PO DAILY Eliquis 5 mg tablet 5 mg PO BID Referrals: Kris Vasquez MD [Primary Care Provider] -
[2022-08-08] MEDS: KETOROLAC 30 MG/ML VIAL IM (19:40)
[2022-08-08] MEDS: diazePAM 5 MG TABLET PO (19:40)
[2022-08-08] MEDS: LIDOCAINE PATCH 1 EACH ADH..PATCH TOP (19:40)
[2022-08-08 21:00] VITALS: O2SAT 98
[2022-08-08] MEDS: HYDROCODONE/ACET 5/325 PREPACK 1 BOTTLE MISC (21:01)
== END 2022-08-08 21:04 | disposition home or self-care (01) ==
PROVIDERS: Emergency Provider Emergency Medicine; PCP Internal Medicine
DX: M62.830 Muscle spasm of back (principal); M62.838 Other muscle spasm
CPT/HCPCS: 96372; 99283; J1885

== ENCOUNTER 2022-08-17 13:58 | Emergency (ER) | payer MEDICARE, OTHER, SELFPAY ==
[2021-06-25 17:33] VITALS: BMI 28.1
== END 2022-08-17 14:10 | disposition left against medical advice (07) ==
PROVIDERS: Emergency Provider Emergency Medicine; PCP Internal Medicine

== ENCOUNTER 2022-09-04 13:17 | Emergency (ER) | payer MEDICARE, OTHER, SELFPAY ==
[2021-06-25 17:33] VITALS: BMI 28.1
--- NOTE | 2022-09-04 13:55 | PC.NURSE ---
called patient in lobby twice and walked to look for.
== END 2022-09-04 13:45 | disposition left against medical advice (07) ==
PROVIDERS: Emergency Provider Emergency Medicine; PCP Internal Medicine
DX: G43.909 Migraine, unspecified, not intractable, without status migrainosus (principal)

== ENCOUNTER 2022-09-06 11:19 | Emergency (ER) | payer MEDICARE, OTHER, SELFPAY ==
[2021-06-25 17:33] VITALS: BMI 28.1
[2022-09-06] VITALS (13 sets, daily range): BP systolic 149–167; BP diastolic 74–94; PULSE 69–95; RESP 18; TEMP 36.3–37; O2SAT 94–99; BMI 28.5
[2022-09-06] MEDS: KETOROLAC 30 MG/ML VIAL 15 MG IV (16:28)
[2022-09-06] MEDS: SODIUM CHLORIDE 0.9% 1,000 ML 1000 ML IV (16:28)
[2022-09-06] MEDS: diphenhydrAMINE 50 MG/ML VIAL IV (16:29)
[2022-09-06] MEDS: METOCLOPRAMIDE 10 MG/2 ML INJ IV (16:29)
[2022-09-06] MEDS: DEXAMETHASONE 10 MG/ML VIAL IV (16:30)
[2022-09-06] MEDS: ACETAMINOPHEN 325 MG TABLET 975 MG PO (16:30)
--- NOTE | 2022-09-06 17:38 | ED_ITS ---
HPI - Headache <Real Roa PA-C - Last Filed: 09/06/22 20:17> General Chief Complaint: Headache Stated Complaint: migraine t-4 Time Seen by Provider: 09/06/22 14:54 Mode of arrival: Ambulatory History of Present Illness HPI Narrative: 72-year-old female with past medical history atrial fibrillation, on Eliquis, migraine presents to the ED with 5 days of headache. Patient endorses a right- sided frontal headache, photophobia, phonophobia. Patient denies visual disturbances, neck stiffness, neck pain, fever, chills. Patient endorses significant nausea, vomiting. Patient states she has been unable to keep down fluids due to the vomiting. Patient states that she has frequent migraines, this episode is similar to her prior episodes. Related Data Home Medications Medication Instructions Recorded Confirmed aspirin 81 mg chewable tablet 81 mg PO QAM 07/26/20 12/23/21 atenolol 25 mg tablet 25 mg PO DAILY 06/25/21 12/23/21 ezetimibe 10 mg tablet 10 mg PO DAILY 06/25/21 12/23/21 levothyroxine 150 mcg tablet 150 mcg PO DAILY 06/25/21 12/23/21 (Synthroid) multivitamin 1 tab PO DAILY ##0 06/25/21 12/23/21 omega-3 fatty acids-vitamin E 1 cap PO DAILY 06/25/21 12/23/21 1,000 mg capsule furosemide 20 mg tablet 10 mg PO QAM 07/09/21 12/23/21 apixaban 5 mg tablet (Eliquis) 5 mg PO BID 07/22/21 12/23/21 cholecalciferol (vitamin D3) 50 50 mcg PO DAILY 07/22/21 12/23/21 mcg (2,000 unit) capsule potassium chloride 10 mEq 20 meq PO DAILY 07/22/21 12/23/21 capsule,extended release Previous Rx's Medication Instructions Recorded ondansetron 4 mg disintegrating 4 mg PO Q8H PRN nausea and 06/24/21 tablet vomiting #10 tabs tramadol 50 mg tablet 50 mg PO Q8H PRN pain #14 tabs 02/28/22 cyclobenzaprine 10 mg tablet 10 mg PO TID PRN muscle spasm #21 03/25/22 tabs tramadol 50 mg tablet 50 mg PO Q8H PRN pain #20 tabs 03/25/22 dexamethasone 4 mg tablet 4 mg PO DAILY #4 tabs 04/02/22 [id number] 1 cap PO Q6H PRN pain #10 caps 05/30/22 50 mg-300 mg-40 mg capsule (Fioricet) ondansetron 4 mg disintegrating 4 mg PO Q6-8H PRN nausea and 06/15/22 tablet vomiting #10 tabs rizatriptan 10 mg tablet (Maxalt) 10 mg PO Q2-4H PRN migraine 06/16/22 headache #10 tabs nortriptyline 10 mg capsule 10 mg PO BEDTIME #30 caps 06/17/22 prednisone 20 mg tablet 40 mg PO DAILY #10 tabs 06/17/22 rimegepant 75 mg disintegrating 75 mg PO Q OTHER DAY PRN migraine 06/17/22 tablet headache #10 tabs metoclopramide HCl 10 mg tablet 10 mg PO Q6H PRN nausea and 06/18/22 (Reglan) vomiting #14 tabs lorazepam 0.5 mg tablet (Ativan) 0.5 mg PO BID PRN nausea and 06/19/22 vomiting #10 tabs diazepam 5 mg tablet (Valium) 5 mg PO BID-QID PRN muscle spasm 08/08/22 #10 tabs hydrocodone 5 mg-acetaminophen 325 1 tab PO Q4-6H PRN pain #10 tabs 08/08/22 mg tablet ketorolac 10 mg tablet 10 mg PO Q6H PRN pain #14 tabs 08/08/22 lidocaine 5 % topical patch 1 patch topical DAILY #15 ea 08/08/22 (Lidoderm) Allergies Allergy/AdvReac Type Severity Reaction Status Date / Time lisinopril Allergy Severe Anaphylaxis Verified 08/08/22 19:07 metformin AdvReac Vomiting Verified 08/08/22 19:07 Review of Systems <Real Roa PA-C - Last Filed: 09/06/22 20:17> Review of Systems ROS Unobtainable: All systems reviewed & are unremarkable except as noted in HPI and below Constitutional Constitutional: Denies chills, Denies fatigue, Denies fever(s), Denies frequent falls, Reports headache(s), Denies lethargy and Denies weakness Eyes Eyes: Denies change in vision, Denies eye discharge, Denies irritation, Denies loss of vision and Reports photophobia ENT Ears, Nose, Mouth, and Throat: Denies change in voice, Denies dizziness, Reports headache(s), Denies neck pain, Denies sore throat and Denies throat swelling Cardiovascular Cardiovascular: Denies chest pain, Denies irregular heart rhythm, Denies lightheadedness, Denies palpitations, Denies dyspnea, Denies dyspnea on exertion and Denies orthopnea Respiratory Respiratory: Denies cough, Denies dyspnea, Denies dyspnea on exertion and Denies wheezing Gastrointestinal Gastrointestinal: Denies abdominal pain, Denies change in bowel habits, Denies diarrhea, Reports nausea and Reports vomiting Genitourinary Genitourinary: Denies hematuria, Denies flank pain, Denies urinary incontinence and Denies urinary urgency Musculoskeletal Musculoskeletal: Denies back pain, Denies muscle weakness, Denies neck pain, Denies numbness and Denies tingling Integumentary/Breasts Skin/Breast: Denies pruritus, Denies erythema, Denies rash and Denies wounds Neurologic Neurologic: Denies behavioral changes, Denies confusion, Denies dizziness, Denies frequent falls, Reports headache(s), Denies loss of vision, Denies numbness, Denies tingling and Denies weakness Psychiatric Psychiatric: Denies anxiety, Denies behavioral changes, Denies confusion, Denies depression, Denies homicidal ideation and Denies suicidal ideation Endocrine Endocrine: Denies fatigue, Denies flushing and Denies palpitations Hematologic/Lymphatic Hematologic/Lymphatic: Denies easy bruising Allergic/Immunologic Allergic/Immunologic: Denies urticaria, Denies throat swelling and Denies wheezing Patient History <Real Roa PA-C - Last Filed: 09/06/22 20:17> Medical History Atrial fibrillation Breast cancer Chronic back pain Chronic pancreatitis Depression Facet arthropathy, lumbar Heart murmur HLD (hyperlipidemia) Hypertension Hypothyroidism Lumbar radiculopathy Migraine headache Nose fracture (~06/29/21) Tinnitus UTI (urinary tract infection) Surgical History History of colonoscopy History of hysterectomy Hx of breast surgery Hx of cholecystectomy Hx of oophorectomy Hx of tonsillectomy Family History Father Brain tumor Congestive heart failure Mother Hypertension Stroke Grandfather Stroke Social History household members: spouse Smoking Status: Former smoker alcohol intake: current Smoking Status: Former smoker alcohol intake frequency: a few times a week Alcohol type: wine Substance Use Type: does not use Exam <Real Roa PA-C - Last Filed: 09/06/22 20:17> Narrative Exam Narrative: Const General:?cooperative, healthy appearing and comfortable [facility] Head:?normal to inspection Ears:?hearing grossly normal bilaterally Nose:?external nose normal Face and sinus:?normal facial exam and sinuses nontender Mouth:?oral mucosae normal Throat:?posterior oropharynx normal Eyes General:?appearance normal, both eyes and all related structures Neck Neck:?normal visual inspection and no lymphadenopathy noted Resp Effort & Inspection:?normal respiratory effort Auscultation:?clear to auscultation bilaterally Cardio Rate:?regular rate Rhythm:?regular rhythm Neuro General:?patient alert, patient awake and patient oriented x3; PERRLA; CN 1 through 12 intact bilaterally; gait normal; negative [id number]; negative pronator drift Initial Vital Signs Initial Vital Signs: Vital Signs Temperature 97.3 F L 09/06/22 11:50 Pulse Rate 69 09/06/22 11:50 Respiratory Rate 18 09/06/22 11:50 Blood Pressure 149/87 H 09/06/22 11:50 Pulse Oximetry 95 09/06/22 11:50 Oxygen Delivery Method 09/06/22 11:50 <Mustapha Osuna DO - Last Filed: 09/07/22 07:16> Initial Vital Signs Initial Vital Signs: Vital Signs Temperature 97.3 F L 09/06/22 11:50 Pulse Rate 69 09/06/22 11:50 Respiratory Rate 18 09/06/22 11:50 Blood Pressure 149/87 H 09/06/22 11:50 Pulse Oximetry 95 09/06/22 11:50 Oxygen Delivery Method 09/06/22 11:50 Course <Rael Roa PA-C - Last Filed: 09/06/22 20:17> Orders Ordered: Discontinued Medications Acetaminophen (Acetaminophen 325 Mg Tablet) 975 mg PO NOW ONE Stop: 09/06/22 16:12 Last Admin: 09/06/22 16:30 Dose: 975 mg Documented By: FILI Dexamethasone (Dexamethasone 10 Mg/Ml Vial) 10 mg IV NOW ONE Stop: 09/06/22 16:14 Last Admin: 09/06/22 16:30 Dose: 10 mg Documented By: FILI Diphenhydramine HCl (Diphenhydramine 50 Mg/Ml Vial) 50 mg IV NOW ONE Stop: 09/06/22 16:13 Last Admin: 09/06/22 16:29 Dose: 50 mg Documented By: FILI Hydromorphone HCl (Hydromorphone 1 Mg Inj) 1 mg IV NOW ONE Stop: 09/06/22 17:55 Last Admin: 09/06/22 18:34 Dose: 1 mg Documented By: HERBERT Sodium Chloride (Normal Saline 0.9%) 1,000 mls @ 1,000 mls/hr IV BOLUS ONE Stop: 09/06/22 17:10 Last Infusion: 09/06/22 19:24 Dose: 0 mls/hr Documented By: Admin: 09/06/22 16:28 Dose: 1,000 mls/hr Documented By: FILI Magnesium Sulfate (Magnesium Sulfate) 2 gm in 50 mls @ 25 mls/hr IV NOW ONE Stop: 09/06/22 18:10 Last Admin: 09/06/22 17:21 Dose: Not Given Documented By: FILI Ketorolac Tromethamine (Ketorolac 30 Mg/Ml Vial) 15 mg IV NOW ONE Stop: 09/06/22 16:12 Last Admin: 09/06/22 16:28 Dose: 15 mg Documented By: FILI Metoclopramide HCl (Metoclopramide 10 Mg/2 Ml Inj) 10 mg IV NOW ONE Stop: 09/06/22 16:12 Last Admin: 09/06/22 16:29 Dose: 10 mg Documented By: FILI Vital Signs Vital signs: Vital Signs - 8 hr 09/06/22 16:48 09/06/22 16:07 09/06/22 16:30 Temperature 98.6 F Pulse Rate 92 H 80 Blood Pressure Pulse Oximetry 98 99 09/06/22 16:31 09/06/22 16:31 09/06/22 16:46 Temperature Pulse Rate 84 76 Blood Pressure 167/82 H Pulse Oximetry 99 99 09/06/22 17:00 09/06/22 17:30 09/06/22 18:03 Temperature Pulse Rate Blood Pressure 158/74 H 149/80 H 159/74 H Pulse Oximetry 09/06/22 18:31 09/06/22 18:39 09/06/22 19:00 Temperature Pulse Rate 77 95 H Blood Pressure 161/78 H Pulse Oximetry 94 97 09/06/22 19:01 09/06/22 19:01 Temperature Pulse Rate 84 Blood Pressure 167/94 H Pulse Oximetry 97 <Mustapha Osuna DO - Last Filed: 09/07/22 07:16> Orders Ordered: Discontinued Medications Acetaminophen (Acetaminophen 325 Mg Tablet) 975 mg PO NOW ONE Stop: 09/06/22 16:12 Last Admin: 09/06/22 16:30 Dose: 975 mg Documented By: FILI Dexamethasone (Dexamethasone 10 Mg/Ml Vial) 10 mg IV NOW ONE Stop: 09/06/22 16:14 Last Admin: 09/06/22 16:30 Dose: 10 mg Documented By: FILI Diphenhydramine HCl (Diphenhydramine 50 Mg/Ml Vial) 50 mg IV NOW ONE Stop: 09/06/22 16:13 Last Admin: 09/06/22 16:29 Dose: 50 mg Documented By: FILI Hydromorphone HCl (Hydromorphone 1 Mg Inj) 1 mg IV NOW ONE Stop: 09/06/22 17:55 Last Admin: 09/06/22 18:34 Dose: 1 mg Documented By: HERBERT Sodium Chloride (Normal Saline 0.9%) 1,000 mls @ 1,000 mls/hr IV BOLUS ONE Stop: 09/06/22 17:10 Last Infusion: 09/06/22 19:24 Dose: 0 mls/hr Documented By: Admin: 09/06/22 16:28 Dose: 1,000 mls/hr Documented By: FILI Magnesium Sulfate (Magnesium Sulfate) 2 gm in 50 mls @ 25 mls/hr IV NOW ONE Stop: 09/06/22 18:10 Last Admin: 09/06/22 17:21 Dose: Not Given Documented By: FILI Ketorolac Tromethamine (Ketorolac 30 Mg/Ml Vial) 15 mg IV NOW ONE Stop: 09/06/22 16:12 Last Admin: 09/06/22 16:28 Dose: 15 mg Documented By: FILI Metoclopramide HCl (Metoclopramide 10 Mg/2 Ml Inj) 10 mg IV NOW ONE Stop: 09/06/22 16:12 Last Admin: 09/06/22 16:29 Dose: 10 mg Documented By: FILI Vital Signs Vital signs: Vital Signs - 8 hr 09/06/22 16:48 09/06/22 16:07 09/06/22 16:30 Temperature 98.6 F Pulse Rate 92 H 80 Blood Pressure Pulse Oximetry 98 99 09/06/22 16:31 09/06/22 16:31 09/06/22 16:46 Temperature Pulse Rate 84 76 Blood Pressure 167/82 H Pulse Oximetry 99 99 09/06/22 17:00 09/06/22 17:30 09/06/22 18:03 Temperature Pulse Rate Blood Pressure 158/74 H 149/80 H 159/74 H Pulse Oximetry 09/06/22 18:31 09/06/22 18:39 09/06/22 19:00 Temperature Pulse Rate 77 95 H Blood Pressure 161/78 H Pulse Oximetry 94 97 09/06/22 19:01 09/06/22 19:01 Temperature Pulse Rate 84 Blood Pressure 167/94 H Pulse Oximetry 97 MDM - Headache <Real Roa PA-C - Last Filed: 09/06/22 20:17> MDM Narrative Medical decision making narrative: 72-year-old female with past medical history atrial fibrillation, on Eliquis, migraine presents to the ED with 5 days of headache. Patient presentation is consistent with primary headache. Will treat with IV fluids, Tylenol, ketorolac, dexamethasone, Benadryl, Reglan. Will reassess. Patient given Dilaudid after there was minimal improvement with the other medications. Patient's symptoms significantly improved with the Dilaudid, patient endorsed 2/10 headache. Discharge patient home with ED return precautions, PCP follow-up for migraine prophylaxis. Patient verbalized understanding. Discharge Plan Departure Patient Disposition: Home Clinical Impression: Headache Instructions: DI for Migraine, DI for Headache Activity Restrictions/Additional Instructions: You were evaluated in the ED today for a headache. Your symptoms responded well to Tylenol, ketorolac, dexamethasone, Benadryl, Reglan, Dilaudid. Please continue to stay well hydrated to prevent a rebound headache. Please follow-up with your PCP for further evaluation and treatment of frequent migraines. Return to the ED if your symptoms worsen. Prescriptions: No Action aspirin 81 mg Tablet,Chewable 81 mg PO QAM ondansetron 4 mg tablet,disintegrating 4 mg PO Q8H PRN (Reason: nausea and vomiting) Qty: 10 0RF furosemide 20 mg Tablet 10 mg PO QAM cyclobenzaprine 10 mg tablet 10 mg PO TID PRN (Reason: muscle spasm) Qty: 21 0RF tramadol 50 mg tablet 50 mg PO Q8H PRN (Reason: pain) Qty: 20 0RF dexamethasone 4 mg tablet 4 mg PO DAILY Qty: 4 0RF [id number] [Fioricet] 50-300-40 mg capsule 1 cap PO Q6H PRN (Reason: pain) Qty: 10 0RF ondansetron 4 mg tablet,disintegrating 4 mg PO Q6-8H PRN (Reason: nausea and vomiting) Qty: 10 0RF rizatriptan [Maxalt] 10 mg tablet 10 mg PO Q2-4H PRN (Reason: migraine headache) Qty: 10 0RF Rx Instructions: do not exceed 3 doses per 24 hrs multivitamin Tablet 1 tab PO DAILY Qty: 0 atenolol 25 mg Tablet 25 mg PO DAILY levothyroxine [Synthroid] 150 mcg Tablet 150 mcg PO DAILY ezetimibe 10 mg Tablet 10 mg PO DAILY omega-3 fatty acids-vitamin E 1,000 mg Capsule 1 cap PO DAILY tramadol 50 mg tablet 50 mg PO Q8H PRN (Reason: pain) Qty: 14 0RF prednisone 20 mg tablet 40 mg PO DAILY Qty: 10 0RF rimegepant 75 mg tablet,disintegrating 75 mg PO Q OTHER DAY PRN (Reason: migraine headache) Qty: 10 0RF nortriptyline 10 mg capsule 10 mg PO BEDTIME Qty: 30 0RF metoclopramide HCl [Reglan] 10 mg tablet 10 mg PO Q6H PRN (Reason: nausea and vomiting) Qty: 14 0RF lorazepam [Ativan] 0.5 mg tablet 0.5 mg PO BID PRN (Reason: nausea and vomiting) Qty: 10 0RF hydrocodone-acetaminophen 5-325 mg tablet 1 tab PO Q4-6H PRN (Reason: pain) Qty: 10 0RF ketorolac 10 mg tablet 10 mg PO Q6H PRN (Reason: pain) Qty: 14 0RF lidocaine [Lidoderm] 5 % adhesive patch,medicated 1 patch TOP DAILY Qty: 15 0RF Rx Instructions: leave on most painful area for 12 hrs diazepam [Valium] 5 mg tablet 5 mg PO BID-QID PRN (Reason: muscle spasm) Qty: 10 0RF potassium chloride 10 mEq capsule, extended release 20 meq PO DAILY cholecalciferol (vitamin D3) 50 mcg (2,000 unit) capsule 50 mcg PO DAILY Eliquis 5 mg tablet 5 mg PO BID Referrals: Kris Vasquez MD [Primary Care Provider] - Visit Report Forms: Patient Portal/API <Mustapha Osuna DO - Last Filed: 09/07/22 07:16> [facility] Dr Osuna Co-Sign Statement: I was available for consultation during this patient's emergency department visit. This chart is signed by myself for administrative purposes only. I did not have direct contact with this patient during this visit. They were seen independently by the [facility].
[2022-09-06] MEDS: HYDROMORPHONE 1 MG INJ IV (18:34)
== END 2022-09-06 19:25 | disposition home or self-care (01) ==
PROVIDERS: Emergency Provider Student in an Organized Health Care Education/Training Program; PCP Internal Medicine
DX: R51.9 Headache, unspecified (principal); I48.20 Chronic atrial fibrillation, unspecified; Z79.01 Long term (current) use of anticoagulants
CPT/HCPCS: 96361; 96374; 96375; 99284; J1100; J1170; J1200; J1885; J2765

== ENCOUNTER 2022-10-11 15:20 | Emergency (ER) | payer MEDICARE, OTHER, SELFPAY ==
[2021-06-25 17:33] VITALS: BMI 28.1
[2022-10-11 15:29] VITALS: BP 147/81; PULSE 69; RESP 18; TEMP 36.7; O2SAT 96; BMI 28.5
== END 2022-10-11 22:06 | disposition left against medical advice (07) ==
PROVIDERS: Emergency Provider Emergency Medicine; PCP Internal Medicine
CPT/HCPCS: 99281

== ENCOUNTER → 2022-10-12 15:46 | Outpatient (CLI) | payer MEDICARE, OTHER, SELFPAY ==
[2021-06-25 17:33] VITALS: BMI 28.1
--- NOTE | 2022-10-12 15:48 | DI.US.S_ITS ---
PROCEDURE: US ABDOMEN LIMITED INDICATIONS: ELEVATED TRANSAMINASE TECHNIQUE: Real-time focused scanning was performed of the abdomen, with image documentation. COMPARISON: None. FINDINGS: Liver is enlarged measuring 17.9 cm with steatosis. Gallbladder has been removed. Common bile duct measures 4 mm. IMPRESSION: Hepatomegaly with steatosis. Dictated by: Lolis Valdez M.D. on 10/12/2022 at 18:06 Approved by: Lolis Valdez M.D. on 10/12/2022 at 18:07
--- NOTE | 2022-10-12 15:48 | DI.MRI.S_ITS ---
PROCEDURE: MR HEAD/BRAIN WO CON INDICATIONS: HEADACHE/MIGRAINE AURA / ELEVATED TRANSAMINASE TECHNIQUE: Non-contrast axial T1 spin echo, axial T2 fast spin echo, sagittal and axial FLAIR, coronal T2 fast spin echo, axial gradient echo, axial diffusion and ADC through the brain. COMPARISON: [facility], CT, CT HEAD/BRAIN WO CON, 06/16/2022, 9:18. FINDINGS: Image quality: Excellent. CSF spaces: Ventricles appear symmetric in size and shape. Basal cisterns are patent. No extra-axial fluid collections. Brain: No intracranial bleeds or mass effects. There is cerebral volume loss for age. There are periventricular and deep white matter chronic small vessel ischemic changes. Brainstem appears normal. Diffusion-weighted images show no acute ischemic insults. No chronic ischemic insults. Normal intravascular flow voids are present. Skull and face: Calvarial bone marrow is normal in signal. Orbits are normal. Sinuses: Bilateral maxillary sinus mucosal thickening. Right maxillary sinus retention cyst. Mastoids clear. IMPRESSION: 1. Volume loss and small vessel ischemic disease. 2. No acute intracranial process. No recent infarct. 3. Sinus disease. Dictated by: Marcelle Manuel M.D. on 10/13/2022 at 8:20 Approved by: Marcelle Manuel M.D. on 10/13/2022 at 8:21
== END ==
PROVIDERS: PCP Internal Medicine; Referring Provider Internal Medicine; Visit Provider Internal Medicine
DX: G43.519 Persistent migraine aura without cerebral infarction, intractable, without status migrainosus (principal); R74.01 Elevation of levels of liver transaminase levels; K76.0 Fatty (change of) liver, not elsewhere classified; J32.0 Chronic maxillary sinusitis
CPT/HCPCS: 70551; 76705

== ENCOUNTER 2022-10-18 14:39 | Emergency (ER) | payer MEDICARE, OTHER, SELFPAY ==
[2021-06-25 17:33] VITALS: BMI 28.1
[2022-10-18 14:46] VITALS: BP 140/71; PULSE 84; RESP 18; TEMP 36.6; O2SAT 98; BMI 28.5
== END 2022-10-18 17:43 | disposition left against medical advice (07) ==
PROVIDERS: Emergency Provider Emergency Medicine; PCP Internal Medicine
CPT/HCPCS: 99281

== ENCOUNTER 2022-11-01 11:54 | Emergency (ER) | payer MEDICARE, OTHER, SELFPAY ==
[2021-06-25 17:33] VITALS: BMI 28.1
[2022-11-01 12:23] VITALS: BP 148/98; PULSE 66; RESP 20; TEMP 36.6; O2SAT 100; BMI 28.5
== END 2022-11-01 12:40 | disposition left against medical advice (07) ==
PROVIDERS: Emergency Provider Emergency Medicine; PCP Internal Medicine
CPT/HCPCS: 99281

== ENCOUNTER 2022-12-28 12:43 | Emergency (ER) | payer MEDICARE, OTHER, SELFPAY ==
[2021-06-25 17:33] VITALS: BMI 28.1
[2022-12-28 12:45] VITALS: BP 129/72; PULSE 70; RESP 16; TEMP 36.6; O2SAT 97; BMI 27.3
[2022-12-28 13:51] LABS: Bacteria Urine Moderate (10-30); RBC Urine 1-5/HPF (0-5/HPF); Squamous Epithelial Cell Urine 1-5 /HPF (0-5/HPF); WBC Urine 30-100/HPF (0-5/HPF)
--- NOTE | 2022-12-28 13:51 | ED.FEMALEGU ---
HPI - Female Genitourinary <Bobby Pearl PA-C - Last Filed: 12/28/22 16:14> General Chief complaint: Urogenital-Female Stated complaint: thinks she has UTI Time Seen by Provider: 12/28/22 12:56 Source: patient Mode of arrival: Ambulatory History of Present Illness HPI Narrative: This is a 72-year-old female presents emergency department with a 2 day history of urinary frequency as well as dysuria. She denies any vaginal discharge, rashes, fevers, nausea, vomiting. She does report some right flank pain as well. States that she is had UTIs in the past and this feels very similar. No allergies to antibiotics. Related Data Home Medications Medication Instructions Recorded Confirmed aspirin 81 mg chewable tablet 81 mg PO QAM 07/26/20 12/23/21 atenolol 25 mg tablet 25 mg PO DAILY 06/25/21 12/23/21 ezetimibe 10 mg tablet 10 mg PO DAILY 06/25/21 12/23/21 levothyroxine 150 mcg tablet 150 mcg PO DAILY 06/25/21 12/23/21 (Synthroid) multivitamin 1 tab PO DAILY ##0 06/25/21 12/23/21 omega-3 fatty acids-vitamin E 1 cap PO DAILY 06/25/21 12/23/21 1,000 mg capsule furosemide 20 mg tablet 10 mg PO QAM 07/09/21 12/23/21 apixaban 5 mg tablet (Eliquis) 5 mg PO BID 07/22/21 12/23/21 cholecalciferol (vitamin D3) 50 50 mcg PO DAILY 07/22/21 12/23/21 mcg (2,000 unit) capsule potassium chloride 10 mEq 20 meq PO DAILY 07/22/21 12/23/21 capsule,extended release Previous Rx's Medication Instructions Recorded ondansetron 4 mg disintegrating 4 mg PO Q8H PRN nausea and 06/24/21 tablet vomiting #10 tabs tramadol 50 mg tablet 50 mg PO Q8H PRN pain #14 tabs 02/28/22 cyclobenzaprine 10 mg tablet 10 mg PO TID PRN muscle spasm #21 03/25/22 tabs tramadol 50 mg tablet 50 mg PO Q8H PRN pain #20 tabs 03/25/22 dexamethasone 4 mg tablet 4 mg PO DAILY #4 tabs 04/02/22 vcxcpvkbdr-rhrxoboxciagg-lrlequqh 1 cap PO Q6H PRN pain #10 caps 05/30/22 50 mg-300 mg-40 mg capsule (Fioricet) ondansetron 4 mg disintegrating 4 mg PO Q6-8H PRN nausea and 06/15/22 tablet vomiting #10 tabs rizatriptan 10 mg tablet (Maxalt) 10 mg PO Q2-4H PRN migraine 06/16/22 headache #10 tabs nortriptyline 10 mg capsule 10 mg PO BEDTIME #30 caps 06/17/22 prednisone 20 mg tablet 40 mg PO DAILY #10 tabs 06/17/22 rimegepant 75 mg disintegrating 75 mg PO Q OTHER DAY PRN migraine 06/17/22 tablet headache #10 tabs metoclopramide HCl 10 mg tablet 10 mg PO Q6H PRN nausea and 06/18/22 (Reglan) vomiting #14 tabs lorazepam 0.5 mg tablet (Ativan) 0.5 mg PO BID PRN nausea and 06/19/22 vomiting #10 tabs diazepam 5 mg tablet (Valium) 5 mg PO BID-QID PRN muscle spasm 08/08/22 #10 tabs hydrocodone 5 mg-acetaminophen 325 1 tab PO Q4-6H PRN pain #10 tabs 08/08/22 mg tablet ketorolac 10 mg tablet 10 mg PO Q6H PRN pain #14 tabs 08/08/22 lidocaine 5 % topical patch 1 patch topical DAILY #15 ea 08/08/22 (Lidoderm) nitrofurantoin 100 mg PO Q12H 5 days #10 caps 12/28/22 monohydrate/macrocrystals 100 mg capsule (Macrobid) Allergies Allergy/AdvReac Type Severity Reaction Status Date / Time lisinopril Allergy Severe Anaphylaxis Verified 11/01/22 12:23 metformin AdvReac Vomiting Verified 11/01/22 12:23 Review of Systems <Bobby Pearl PA-C - Last Filed: 12/28/22 16:14> Review of Systems Narrative: GENERAL: Denies chills, fatigue, malaise, fever, sweats. HEENT: Denies sinus pain, ear pain, sore throat, difficulty swallowing, dizziness. RESPIRATORY: Denies dyspnea, cough, wheezing, hemoptysis, sputum. CARDIOVASCULAR: Denies chest pain, palpitations, orthopnea, edema, GASTROINTESTINAL: Denies nausea, vomiting, abdominal pain, diarrhea, constipation, melena. : Reports dysuria as well as urinary frequency MUSCULOSKELETAL: denies weakness, joint pain, or bony pain SKIN: Denies rash, skin lesions, or other NEUROLOGIC: Denies weakness, headache, numbness, change in speech, confusion, seizures, incoordination. PSYCHIATRIC: No concerning psychosocial issues. 12 point review of systems is negative except for those stated above Patient History <Bobby Pearl PA-C - Last Filed: 12/28/22 16:14> Medical History Atrial fibrillation Breast cancer Chronic back pain Chronic pancreatitis Depression Facet arthropathy, lumbar Heart murmur HLD (hyperlipidemia) Hypertension Hypothyroidism Lumbar radiculopathy Migraine headache Nose fracture (~06/29/21) Tinnitus UTI (urinary tract infection) Surgical History History of colonoscopy History of hysterectomy Hx of breast surgery Hx of cholecystectomy Hx of oophorectomy Hx of tonsillectomy Family History Father Brain tumor Congestive heart failure Mother Hypertension Stroke Grandfather Stroke alcohol intake frequency: a few times a week Alcohol type: wine Substance Use Type: does not use Exam <Bobby Pearl PA-C - Last Filed: 12/28/22 16:14> Narrative Exam Narrative: GENERAL: Well-developed patient, in mild distress. HEAD: Atraumatic. Normocephalic. EYES: Pupils equal round and reactive. Extraocular motions intact. No scleral icterus. No injection or drainage. ENT: Nose without bleeding, purulent drainage. Throat without erythema, tonsillar hypertrophy or exudate. Airway patent. NECK: Trachea midline. Non tende EXTREMITIES: No edema or joint tenderness. BACK: Mild right CVA tenderness to palpation NEURO: AOx3. SKIN: No rash or erythema of visible areas Initial Vital Signs Initial Vital Signs: Vital Signs Temperature 97.9 F 12/28/22 12:45 Pulse Rate 70 12/28/22 12:45 Respiratory Rate 16 12/28/22 12:45 Blood Pressure 129/72 12/28/22 12:45 Pulse Oximetry 97 12/28/22 12:45 Oxygen Delivery Method Room Air 12/28/22 12:45 <Lita Urbina DO - Last Filed: 12/28/22 16:18> Initial Vital Signs Initial Vital Signs: Vital Signs Temperature 97.9 F 12/28/22 12:45 Pulse Rate 70 12/28/22 12:45 Respiratory Rate 16 12/28/22 12:45 Blood Pressure 129/72 12/28/22 12:45 Pulse Oximetry 97 12/28/22 12:45 Oxygen Delivery Method Room Air 12/28/22 12:45 Course <Bobby Pearl PA-C - Last Filed: 12/28/22 16:14> Orders Ordered: ED Orders 12/28/22 13:09 Urine Culture Stat Urine Microscopic Stat Vital Signs Vital signs: Vital Signs - 8 hr 12/28/22 12:45 12/28/22 14:29 Temperature 97.9 F 97.9 F Pulse Rate 70 78 Respiratory Rate 16 17 Blood Pressure 129/72 126/70 Pulse Oximetry 97 98 Oxygen Delivery Method Room Air Room Air <Lita Urbina DO - Last Filed: 12/28/22 16:18> Orders Ordered: ED Orders 12/28/22 13:09 Urine Culture Stat Urine Microscopic Stat Vital Signs Vital signs: Vital Signs - 8 hr 12/28/22 12:45 12/28/22 14:29 Temperature 97.9 F 97.9 F Pulse Rate 70 78 Respiratory Rate 16 17 Blood Pressure 129/72 126/70 Pulse Oximetry 97 98 Oxygen Delivery Method Room Air Room Air MDM - Female Genitourinary <Bobby Pearl PA-C - Last Filed: 12/28/22 16:14> Lab Data Labs: Lab Results 12/28/22 Range/Units 13:09 Urine RBC 1-5/hpf (0-5/HPF) Urine WBC 30-100/hpf H (0-5/HPF) Ur Squamous Epith Cells 1-5 /hpf (0-5/HPF) Urine Bacteria Moderate (10-30) H (None) Urine Dip Bedside Urine Glucose 1000 mg/dl Bedside Urine Bilirubin - Negative Bedside Urine Ketone - Negative Urine Specific [place] 1.010 Bedside Urine Occult Blood +++ Bedside Urine pH 6.0 Bedside Urine Protein +/- 15 Bedside Urine Urobilinogen - Negative Bedside Urine Nitrite - Negative Bedside Urine Leukocytes + 70 Esterase MDM Narrative Medical decision making narrative: MDM * differential diagnosis includes but not limited to UTI, gonorrhea, chlamydia, pyelonephritis * Prior records reviewed: Patient has a history of atrial fibrillation on Eliquis, migraines. Seen here 3 months ago for migraine. * My lab interpretation: Urinalysis negative for leukocytes or nitrites * My imgaing interpretation: None obtained * Clinical Decision Rules/Scores evaluated: None * Independent discussions with: None ED Course: This is a 72-year-old female presents emergency department due to UTI like symptoms. Based on symptoms low concern for pyelonephritis. Urinalysis showed no evidence of leukocytes or nitrites but will treat some dramatically as patient is having symptoms very similar to UTIs she is had in the past. No antibiotic allergies Shared Decision Making: Discussed plan with patient who is comfortable with the plan. Social Considerations: None Disposition: Discharged to home <Lita Urbina, - Last Filed: 12/28/22 16:18> Lab Data Labs: Lab Results 12/28/22 Range/Units 13:09 Urine RBC 1-5/hpf (0-5/HPF) Urine WBC 30-100/hpf H (0-5/HPF) Ur Squamous Epith Cells 1-5 /hpf (0-5/HPF) Urine Bacteria Moderate (10-30) H (None) Urine Dip Bedside Urine Glucose 1000 mg/dl Bedside Urine Bilirubin - Negative Bedside Urine Ketone - Negative Urine Specific [place] 1.010 Bedside Urine Occult Blood +++ Bedside Urine pH 6.0 Bedside Urine Protein +/- 15 Bedside Urine Urobilinogen - Negative Bedside Urine Nitrite - Negative Bedside Urine Leukocytes + 70 Esterase Discharge Plan Departure Patient Disposition: Home Clinical Impression: Acute UTI Instructions: DI for Urinary Tract Infection (UTI) Activity Restrictions/Additional Instructions: Thank you for coming to the [facility] Emergency Department today. Based on her symptoms it seems that you have a urinary tract infection. Please take antibiotics as prescribed. I hope you feel better soon. Prescriptions: New nitrofurantoin monohyd/m-cryst [Macrobid] 100 mg capsule 100 mg PO Q12H 5 Days Qty: 10 0RF Rx Instructions: must administer with a meal/food No Action aspirin 81 mg Tablet,Chewable 81 mg PO QAM ondansetron 4 mg tablet,disintegrating 4 mg PO Q8H PRN (Reason: nausea and vomiting) Qty: 10 0RF furosemide 20 mg Tablet 10 mg PO QAM cyclobenzaprine 10 mg tablet 10 mg PO TID PRN (Reason: muscle spasm) Qty: 21 0RF tramadol 50 mg tablet 50 mg PO Q8H PRN (Reason: pain) Qty: 20 0RF dexamethasone 4 mg tablet 4 mg PO DAILY Qty: 4 0RF tkygjjaoax-ksazdnrprrxna-vaps [Fioricet] 50-300-40 mg capsule 1 cap PO Q6H PRN (Reason: pain) Qty: 10 0RF ondansetron 4 mg tablet,disintegrating 4 mg PO Q6-8H PRN (Reason: nausea and vomiting) Qty: 10 0RF rizatriptan [Maxalt] 10 mg tablet 10 mg PO Q2-4H PRN (Reason: migraine headache) Qty: 10 0RF Rx Instructions: do not exceed 3 doses per 24 hrs multivitamin Tablet 1 tab PO DAILY Qty: 0 atenolol 25 mg Tablet 25 mg PO DAILY levothyroxine [Synthroid] 150 mcg Tablet 150 mcg PO DAILY ezetimibe 10 mg Tablet 10 mg PO DAILY omega-3 fatty acids-vitamin E 1,000 mg Capsule 1 cap PO DAILY tramadol 50 mg tablet 50 mg PO Q8H PRN (Reason: pain) Qty: 14 0RF prednisone 20 mg tablet 40 mg PO DAILY Qty: 10 0RF rimegepant 75 mg tablet,disintegrating 75 mg PO Q OTHER DAY PRN (Reason: migraine headache) Qty: 10 0RF nortriptyline 10 mg capsule 10 mg PO BEDTIME Qty: 30 0RF metoclopramide HCl [Reglan] 10 mg tablet 10 mg PO Q6H PRN (Reason: nausea and vomiting) Qty: 14 0RF lorazepam [Ativan] 0.5 mg tablet 0.5 mg PO BID PRN (Reason: nausea and vomiting) Qty: 10 0RF hydrocodone-acetaminophen 5-325 mg tablet 1 tab PO Q4-6H PRN (Reason: pain) Qty: 10 0RF ketorolac 10 mg tablet 10 mg PO Q6H PRN (Reason: pain) Qty: 14 0RF lidocaine [Lidoderm] 5 % adhesive patch,medicated 1 patch TOP DAILY Qty: 15 0RF Rx Instructions: leave on most painful area for 12 hrs diazepam [Valium] 5 mg tablet 5 mg PO BID-QID PRN (Reason: muscle spasm) Qty: 10 0RF potassium chloride 10 mEq capsule, extended release 20 meq PO DAILY cholecalciferol (vitamin D3) 50 mcg (2,000 unit) capsule 50 mcg PO DAILY Eliquis 5 mg tablet 5 mg PO BID Referrals: Kris Vasquez MD [Primary Care Provider] - Stand Alone Forms: Patient Portal/API <Lita Urbina DO - Last Filed: 12/28/22 16:18> Cosign ED Attending [place]apoorvaature Attestation: I was immediately available in the department for consultation.
[2022-12-28 14:29] VITALS: BP 126/70; PULSE 78; RESP 17; TEMP 36.6; O2SAT 98
== END 2022-12-28 14:29 | disposition home or self-care (01) ==
PROVIDERS: Emergency Provider Physician Assistant Medical; PCP Internal Medicine
DX: N39.0 Urinary tract infection, site not specified (principal)
CPT/HCPCS: 81003; 81015; 87077; 87086; 87186; 99282

== ENCOUNTER 2023-01-20 16:18 | Emergency (ER) | payer MEDICARE, OTHER, SELFPAY ==
[2021-06-25 17:33] VITALS: BMI 28.1
[2023-01-20 16:34] VITALS: BP 165/83; PULSE 69; RESP 22; TEMP 36.5; O2SAT 99; BMI 27.3
[2023-01-20] MEDS: SODIUM CHLORIDE 0.9% 1,000 ML 1000 ML IV (18:23)
[2023-01-20 18:24] VITALS: BP 153/84; PULSE 77
[2023-01-20] MEDS: PROCHLORPERAZINE 10 MG/2 ML VIAL IV (18:24)
[2023-01-20] MEDS: DEXAMETHASONE 10 MG/ML VIAL IV (18:24)
[2023-01-20] MEDS: diphenhydrAMINE 50 MG/ML VIAL 25 MG IV (18:24)
[2023-01-20] MEDS: KETOROLAC 30 MG/ML VIAL 15 MG IV (18:24)
[2023-01-20 18:26] VITALS: BP 153/84; PULSE 68; RESP 18; O2SAT 99
--- NOTE | 2023-01-20 19:13 | ED.HA ---
HPI - Headache <Bobby Pearl PA-C - Last Filed: 01/20/23 19:20> General Chief Complaint: Headache Stated Complaint: Migraine Time Seen by Provider: 01/20/23 17:37 Mode of arrival: Ambulatory History of Present Illness HPI Narrative: This is a 72-year-old female with a history of migraines presents to the emergency department due to a worsening migraine for the last couple of days. She denies any new symptoms such as slurred speech, dizziness, focal weakness, facial drooping, or any other concerning signs or symptoms. She states that this feels very similar to migraines she is in the past. Her Triptan medication she is prescribed has not been helping with the symptoms. Reports a headache as well as mild nausea., Related Data Home Medications Medication Instructions Recorded Confirmed aspirin 81 mg chewable tablet 81 mg PO QAM 07/26/20 12/23/21 atenolol 25 mg tablet 25 mg PO DAILY 06/25/21 12/23/21 ezetimibe 10 mg tablet 10 mg PO DAILY 06/25/21 12/23/21 levothyroxine 150 mcg tablet 150 mcg PO DAILY 06/25/21 12/23/21 (Synthroid) multivitamin 1 tab PO DAILY ##0 06/25/21 12/23/21 omega-3 fatty acids-vitamin E 1 cap PO DAILY 06/25/21 12/23/21 1,000 mg capsule furosemide 20 mg tablet 10 mg PO QAM 07/09/21 12/23/21 apixaban 5 mg tablet (Eliquis) 5 mg PO BID 07/22/21 12/23/21 cholecalciferol (vitamin D3) 50 50 mcg PO DAILY 07/22/21 12/23/21 mcg (2,000 unit) capsule potassium chloride 10 mEq 20 meq PO DAILY 07/22/21 12/23/21 capsule,extended release Previous Rx's Medication Instructions Recorded ondansetron 4 mg disintegrating 4 mg PO Q8H PRN nausea and 06/24/21 tablet vomiting #10 tabs tramadol 50 mg tablet 50 mg PO Q8H PRN pain #14 tabs 02/28/22 cyclobenzaprine 10 mg tablet 10 mg PO TID PRN muscle spasm #21 03/25/22 tabs tramadol 50 mg tablet 50 mg PO Q8H PRN pain #20 tabs 03/25/22 dexamethasone 4 mg tablet 4 mg PO DAILY #4 tabs 04/02/22 twvkyhmiay-awvjjsgumpari-ctygwjpn 1 cap PO Q6H PRN pain #10 caps 05/30/22 50 mg-300 mg-40 mg capsule (Fioricet) ondansetron 4 mg disintegrating 4 mg PO Q6-8H PRN nausea and 06/15/22 tablet vomiting #10 tabs rizatriptan 10 mg tablet (Maxalt) 10 mg PO Q2-4H PRN migraine 06/16/22 headache #10 tabs nortriptyline 10 mg capsule 10 mg PO BEDTIME #30 caps 06/17/22 prednisone 20 mg tablet 40 mg PO DAILY #10 tabs 06/17/22 rimegepant 75 mg disintegrating 75 mg PO Q OTHER DAY PRN migraine 06/17/22 tablet headache #10 tabs metoclopramide HCl 10 mg tablet 10 mg PO Q6H PRN nausea and 06/18/22 (Reglan) vomiting #14 tabs lorazepam 0.5 mg tablet (Ativan) 0.5 mg PO BID PRN nausea and 06/19/22 vomiting #10 tabs diazepam 5 mg tablet (Valium) 5 mg PO BID-QID PRN muscle spasm 08/08/22 #10 tabs hydrocodone 5 mg-acetaminophen 325 1 tab PO Q4-6H PRN pain #10 tabs 08/08/22 mg tablet ketorolac 10 mg tablet 10 mg PO Q6H PRN pain #14 tabs 08/08/22 lidocaine 5 % topical patch 1 patch topical DAILY #15 ea 08/08/22 (Lidoderm) Allergies Allergy/AdvReac Type Severity Reaction Status Date / Time lisinopril Allergy Severe Anaphylaxis Verified 11/01/22 12:23 metformin AdvReac Vomiting Verified 11/01/22 12:23 Review of Systems <Bobby Pearl PA-C - Last Filed: 01/20/23 19:20> Review of Systems Narrative: GENERAL: Denies chills, fatigue, malaise, fever, sweats. HEENT: Denies sinus pain, ear pain, sore throat, difficulty swallowing, dizziness. RESPIRATORY: Denies dyspnea, cough, wheezing, hemoptysis, sputum. CARDIOVASCULAR: Denies chest pain, palpitations, orthopnea, edema, GASTROINTESTINAL: Reports nausea, denies vomiting, abdominal pain, diarrhea, constipation, melena. : Denies dysuria, frequency, incontinence, hematuria, urinary retention. MUSCULOSKELETAL: denies weakness, joint pain, or bony pain SKIN: Denies rash, skin lesions, or other NEUROLOGIC: Reports headache, Denies , numbness, change in speech, confusion, seizures, incoordination. PSYCHIATRIC: No concerning psychosocial issues. 12 point review of systems is negative except for those stated above Patient History <Bobby Pearl PA-C - Last Filed: 01/20/23 19:20> Medical History Atrial fibrillation Breast cancer Chronic back pain Chronic pancreatitis Depression Facet arthropathy, lumbar Heart murmur HLD (hyperlipidemia) Hypertension Hypothyroidism Lumbar radiculopathy Migraine headache Nose fracture (~06/29/21) Tinnitus UTI (urinary tract infection) Surgical History History of colonoscopy History of hysterectomy Hx of breast surgery Hx of cholecystectomy Hx of oophorectomy Hx of tonsillectomy Family History Father Brain tumor Congestive heart failure Mother Hypertension Stroke Grandfather Stroke Social History household members: spouse Smoking Status: Former smoker alcohol intake: current Smoking Status: Former smoker alcohol intake frequency: other Alcohol type: wine Substance Use Type: does not use Exam <Bobby Pearl PA-C - Last Filed: 01/20/23 19:20> Narrative Exam Narrative: GENERAL: Well-developed patient, in mild distress. HEAD: Atraumatic. Normocephalic. EYES: Pupils equal round and reactive. Extraocular motions intact. No scleral icterus. No injection or drainage. ENT: Nose without bleeding, purulent drainage. Throat without erythema, tonsillar hypertrophy or exudate. Airway patent. NECK: Trachea midline. Non tender EXTREMITIES: No edema or joint tenderness. BACK: Nontender without deformity or crepitance. No flank tenderness. NEURO: AOx3. Cranial nerves 2-12 intact SKIN: No rash or erythema of visible areas Initial Vital Signs Initial Vital Signs: Vital Signs Temperature 97.7 F 01/20/23 16:34 Pulse Rate 69 04/20/23 16:34 Respiratory Rate 22 01/20/23 16:34 Blood Pressure 165/83 H 01/20/23 16:34 Pulse Oximetry 99 01/20/23 16:34 Oxygen Delivery Method Room Air 01/20/23 16:34 <Sandra Perales DO - Last Filed: 01/21/23 02:31> Initial Vital Signs Initial Vital Signs: Vital Signs Temperature 97.7 F 01/20/23 16:34 Pulse Rate 69 01/20/23 16:34 Respiratory Rate 22 01/20/23 16:34 Blood Pressure 165/83 H 01/20/23 16:34 Pulse Oximetry 99 01/20/23 16:34 Oxygen Delivery Method Room Air 01/20/23 16:34 Course <Bobby Pearl PA-C - Last Filed: 01/20/23 19:20> Orders Ordered: Discontinued Medications Dexamethasone (Dexamethasone 10 Mg/Ml Vial) 10 mg IV NOW ONE Stop: 01/20/23 18:06 Last Admin: 01/20/23 18:24 Dose: 10 mg Documented By: KEYONA Diphenhydramine HCl (Diphenhydramine 50 Mg/Ml Vial) 25 mg IV NOW ONE Stop: 01/20/23 18:06 Last Admin: 01/20/23 18:24 Dose: 25 mg Documented By: KEYONA Sodium Chloride (Normal Saline 0.9%) 1,000 mls @ 1,000 mls/hr IV BOLUS ONE Stop: 01/20/23 19:04 Last Admin: 01/20/23 18:23 Dose: 1,000 mls/hr Documented By: KEYONA Ketorolac Tromethamine (Ketorolac 30 Mg/Ml Vial) 15 mg IV NOW ONE Stop: 01/20/23 18:06 Last Admin: 01/20/23 18:24 Dose: 15 mg Documented By: KEYONA Prochlorperazine (Prochlorperazine 10 Mg/2 Ml Vial) 10 mg IV NOW ONE Stop: 01/20/23 18:06 Last Admin: 01/20/23 18:24 Dose: 10 mg Documented By: KEYONA Vital Signs Vital signs: Vital Signs - 8 hr 01/20/23 19:27 Pulse Rate 64 Blood Pressure 167/83 H Pulse Oximetry 100 Oxygen Delivery Method Room Air <Sandra Perales DO - Last Filed: 01/21/23 02:31> Orders Ordered: Discontinued Medications Dexamethasone (Dexamethasone 10 Mg/Ml Vial) 10 mg IV NOW ONE Stop: 01/20/23 18:06 Last Admin: 01/20/23 18:24 Dose: 10 mg Documented By: KEYONA Diphenhydramine HCl (Diphenhydramine 50 Mg/Ml Vial) 25 mg IV NOW ONE Stop: 01/20/23 18:06 Last Admin: 01/20/23 18:24 Dose: 25 mg Documented By: KEYONA Sodium Chloride (Normal Saline 0.9%) 1,000 mls @ 1,000 mls/hr IV BOLUS ONE Stop: 01/20/23 19:04 Last Admin: 01/20/23 18:23 Dose: 1,000 mls/hr Documented By: KEYONA Ketorolac Tromethamine (Ketorolac 30 Mg/Ml Vial) 15 mg IV NOW ONE Stop: 01/20/23 18:06 Last Admin: 01/20/23 18:24 Dose: 15 mg Documented By: KEYONA Prochlorperazine (Prochlorperazine 10 Mg/2 Ml Vial) 10 mg IV NOW ONE Stop: 01/20/23 18:06 Last Admin: 01/20/23 18:24 Dose: 10 mg Documented By: KEYONA Vital Signs Vital signs: Vital Signs - 8 hr 01/20/23 19:27 Pulse Rate 64 Blood Pressure 167/83 H Pulse Oximetry 100 Oxygen Delivery Method Room Air MDM - Headache <Bobby Pearl PA-C - Last Filed: 01/20/23 19:20> MDM Narrative Medical decision making narrative: MDM * differential diagnosis includes but not limited to headache, migraine, intracranial hemorrhage, subarachnoid hemorrhage, intracranial bleed * Prior records reviewed: History of atrial fibrillation on Eliquis. History of migraines. Patient was last seen last year for similar complaints. Patient was given Tylenol, dexamethasone, Benadryl, Dilaudid, normal saline, magnesium sulfate, Toradol, and Reglan. * My lab interpretation: None obtained * My imgaing interpretation: None obtained * Clinical Decision Rules/Scores evaluated: None * Independent discussions with: None ED Course: This is a 72-year-old female with a history of migraines presenting for a repeat migraine which feels very similar to prior. No abnormal findings on physical exam and low concern for CVA. Patient was given Tylenol, dexamethasone, Benadryl, normal saline, Toradol and Compazine which affect the improved her headache. Patient was comfortable discharging home. Shared Decision Making: Discussed plan patient who is comfortable with the plan. Social Considerations: None Disposition: Discharged to home Discharge Plan Departure Patient Disposition: Home Clinical Impression: Migraine Instructions: DI for Migraine Activity Restrictions/Additional Instructions: Thank you for coming to the [facility] Emergency Department today. I am glad that your migraine pain improve with the medications we gave you. Please continue using your current medications. Please return emergency department immediately if you develop any slurred speech, focal weakness, or any other concerning signs or symptoms. I am glad you are feeling better Prescriptions: No Action aspirin 81 mg Tablet,Chewable 81 mg PO QAM ondansetron 4 mg tablet,disintegrating 4 mg PO Q8H PRN (Reason: nausea and vomiting) Qty: 10 0RF furosemide 20 mg Tablet 10 mg PO QAM cyclobenzaprine 10 mg tablet 10 mg PO TID PRN (Reason: muscle spasm) Qty: 21 0RF tramadol 50 mg tablet 50 mg PO Q8H PRN (Reason: pain) Qty: 20 0RF dexamethasone 4 mg tablet 4 mg PO DAILY Qty: 4 0RF ywmnufkqkc-ulefmqhmzznid-npxe [Fioricet] 50-300-40 mg capsule 1 cap PO Q6H PRN (Reason: pain) Qty: 10 0RF ondansetron 4 mg tablet,disintegrating 4 mg PO Q6-8H PRN (Reason: nausea and vomiting) Qty: 10 0RF rizatriptan [Maxalt] 10 mg tablet 10 mg PO Q2-4H PRN (Reason: migraine headache) Qty: 10 0RF Rx Instructions: do not exceed 3 doses per 24 hrs multivitamin Tablet 1 tab PO DAILY Qty: 0 atenolol 25 mg Tablet 25 mg PO DAILY levothyroxine [Synthroid] 150 mcg Tablet 150 mcg PO DAILY ezetimibe 10 mg Tablet 10 mg PO DAILY omega-3 fatty acids-vitamin E 1,000 mg Capsule 1 cap PO DAILY tramadol 50 mg tablet 50 mg PO Q8H PRN (Reason: pain) Qty: 14 0RF prednisone 20 mg tablet 40 mg PO DAILY Qty: 10 0RF rimegepant 75 mg tablet,disintegrating 75 mg PO Q OTHER DAY PRN (Reason: migraine headache) Qty: 10 0RF nortriptyline 10 mg capsule 10 mg PO BEDTIME Qty: 30 0RF metoclopramide HCl [Reglan] 10 mg tablet 10 mg PO Q6H PRN (Reason: nausea and vomiting) Qty: 14 0RF lorazepam [Ativan] 0.5 mg tablet 0.5 mg PO BID PRN (Reason: nausea and vomiting) Qty: 10 0RF hydrocodone-acetaminophen 5-325 mg tablet 1 tab PO Q4-6H PRN (Reason: pain) Qty: 10 0RF ketorolac 10 mg tablet 10 mg PO Q6H PRN (Reason: pain) Qty: 14 0RF lidocaine [Lidoderm] 5 % adhesive patch,medicated 1 patch TOP DAILY Qty: 15 0RF Rx Instructions: leave on most painful area for 12 hrs diazepam [Valium] 5 mg tablet 5 mg PO BID-QID PRN (Reason: muscle spasm) Qty: 10 0RF potassium chloride 10 mEq capsule, extended release 20 meq PO DAILY cholecalciferol (vitamin D3) 50 mcg (2,000 unit) capsule 50 mcg PO DAILY Eliquis 5 mg tablet 5 mg PO BID Referrals: Yuli Lang PA-C [Primary Care Provider] - Stand Alone Forms: Patient Portal/API <Sandra Perales DO - Last Filed: 01/21/23 02:31> Cosign ED Attending [place] Attestation: I was immediately available in the department for consultation. Documentation has been reviewed.
[2023-01-20 19:27] VITALS: BP 167/83; PULSE 64; O2SAT 100
== END 2023-01-20 19:28 | disposition home or self-care (01) ==
PROVIDERS: Emergency Provider Physician Assistant Medical; PCP Physician Assistant
DX: G43.909 Migraine, unspecified, not intractable, without status migrainosus (principal); R11.0 Nausea
CPT/HCPCS: 96361; 96374; 96375; 99283; 99284; J0780; J1100; J1200; J1885

== ENCOUNTER 2023-01-23 14:20 | Emergency (ER) | payer MEDICARE, OTHER, SELFPAY ==
[2021-06-25 17:33] VITALS: BMI 28.1
[2023-01-23] VITALS (14 sets, daily range): BP systolic 135–181; BP diastolic 62–94; PULSE 56–80; RESP 16–29; TEMP 36.6; O2SAT 96–100; BMI 27.3
--- NOTE | 2023-01-23 14:33 | DI.RAD.S_ITS ---
PROCEDURE: XR CHEST 1V INDICATIONS: chest pain TECHNIQUE: One view of the chest was acquired. COMPARISON: [facility], , XR CHEST 1V, 02/28/2022, 13:17. FINDINGS: Surgical changes and devices: None. Lungs and pleura: Lungs are clear. No pleural effusions or pneumothorax. Mediastinum: Heart size is enlarged, accentuated by low lung volumes Bones and chest wall: No suspicious bony lesions. Overlying soft tissues appear unremarkable. IMPRESSION: Cardiomegaly without acute cardiopulmonary findings Approved by: Yan Hay M.D. on 01/23/2023 at 15:18
[2023-01-23 15:12] LABS: Hematocrit 44.1 % (36-46); Hemoglobin 14.6 g/dL (12.0-16.0); Mean Corpuscular HGB Conc 33.2 % (30-36)
[2023-01-23 15:17] LABS: Add Manual Diff / Slide Review NO; Basophils Absolute Auto 100 /uL (0-100); Basophils Percent Auto 0.7 % (0-2); Eosinophils Absolute Auto 0 /uL (0-450); Eosinophils Percent Auto 0.4 % (2-4); Lymphocytes Absolute Auto 2800 /uL (1100-4500); Lymphocytes Percent Auto 22.2 % (25-40); Mean Corpuscular Hemoglobin 29.5 PG (26-34); Mean Corpuscular Volume 89.1 fL (80-100); Monocytes Absolute Auto 1300 /uL (0-900); Neutrophils Absolute Auto 8400 /uL (1500-7000); Neutrophils Percent Auto 66.7 % (50-75); Platelet Count 211 X10^3/uL (150-400); Red Blood Cell Count 4.95 X10^6/uL (4.0-5.2); Red Cell Distribution Width 15.9 % (11.6-14.8); White Blood Cell Count 12.6 X10^3/uL (4.5-11.0)
--- NOTE | 2023-01-23 15:20 | ED_ITS ---
HPI - Chest Pain General Chief Complaint: Chest Pain Stated Complaint: chest pain Time Seen by Provider: 01/23/23 14:31 Source: patient Mode of arrival: Ambulatory Limitations: no limitations History of Present Illness HPI narrative: Patient is a 72-year-old female history of atrial fibrillation on Eliquis, type 2 diabetes, hypertension hyperlipidemia presenting today with chest pain. She reports that over last 2-3 weeks she is had episodes of chest pain. She was seen and evaluated over [facility] she was eventually sent to [facility] where she says she states 2 nights and had work. She sees Dr. Salazar cardiology with [facility]. She last saw him a year ago when she had an ablation for her AFib. She is noted to be in AFib but rate is controlled with heart rate of 78. She reports that she started having chest pain while she was lying down today. It is in the center of her chest radiates up to her jaw. It is sharp and stabbing in nature lasts for about 10 minutes is slightly worse when she ambulates. She says that this feels similar to when she had pain previously. He denies fever chills abdominal pain peripheral edema. She does report feeling mildly nauseated without vomiting. Related Data Home Medications Medication Instructions Recorded Confirmed aspirin 81 mg chewable tablet 81 mg PO QAM 07/26/20 12/23/21 atenolol 25 mg tablet 25 mg PO DAILY 06/25/21 12/23/21 ezetimibe 10 mg tablet 10 mg PO DAILY 06/25/21 12/23/21 levothyroxine 150 mcg tablet 150 mcg PO DAILY 06/25/21 12/23/21 (Synthroid) multivitamin 1 tab PO DAILY ##0 06/25/21 12/23/21 omega-3 fatty acids-vitamin E 1 cap PO DAILY 06/25/21 12/23/21 1,000 mg capsule furosemide 20 mg tablet 10 mg PO QAM 07/09/21 12/23/21 apixaban 5 mg tablet (Eliquis) 5 mg PO BID 07/22/21 12/23/21 cholecalciferol (vitamin D3) 50 50 mcg PO DAILY 07/22/21 12/23/21 mcg (2,000 unit) capsule potassium chloride 10 mEq 20 meq PO DAILY 07/22/21 12/23/21 capsule,extended release Previous Rx's Medication Instructions Recorded ondansetron 4 mg disintegrating 4 mg PO Q8H PRN nausea and 06/24/21 tablet vomiting #10 tabs tramadol 50 mg tablet 50 mg PO Q8H PRN pain #14 tabs 02/28/22 cyclobenzaprine 10 mg tablet 10 mg PO TID PRN muscle spasm #21 03/25/22 tabs tramadol 50 mg tablet 50 mg PO Q8H PRN pain #20 tabs 03/25/22 dexamethasone 4 mg tablet 4 mg PO DAILY #4 tabs 04/02/22 qbdrlijmex-vjdljynbexfqa-liweumpn 1 cap PO Q6H PRN pain #10 caps 05/30/22 50 mg-300 mg-40 mg capsule (Fioricet) ondansetron 4 mg disintegrating 4 mg PO Q6-8H PRN nausea and 06/15/22 tablet vomiting #10 tabs rizatriptan 10 mg tablet (Maxalt) 10 mg PO Q2-4H PRN migraine 06/16/22 headache #10 tabs nortriptyline 10 mg capsule 10 mg PO BEDTIME #30 caps 06/17/22 prednisone 20 mg tablet 40 mg PO DAILY #10 tabs 06/17/22 rimegepant 75 mg disintegrating 75 mg PO Q OTHER DAY PRN migraine 06/17/22 tablet headache #10 tabs metoclopramide HCl 10 mg tablet 10 mg PO Q6H PRN nausea and 06/18/22 (Reglan) vomiting #14 tabs lorazepam 0.5 mg tablet (Ativan) 0.5 mg PO BID PRN nausea and 06/19/22 vomiting #10 tabs diazepam 5 mg tablet (Valium) 5 mg PO BID-QID PRN muscle spasm 08/08/22 #10 tabs hydrocodone 5 mg-acetaminophen 325 1 tab PO Q4-6H PRN pain #10 tabs 08/08/22 mg tablet ketorolac 10 mg tablet 10 mg PO Q6H PRN pain #14 tabs 08/08/22 lidocaine 5 % topical patch 1 patch topical DAILY #15 ea 08/08/22 (Lidoderm) furosemide 20 mg tablet (Lasix) 20 mg PO DAILY #3 tabs 01/23/23 Allergies Allergy/AdvReac Type Severity Reaction Status Date / Time lisinopril Allergy Severe Anaphylaxis Verified 01/23/23 16:10 metformin AdvReac Vomiting Verified 01/23/23 16:10 Review of Systems Review of Systems ROS Unobtainable: All systems reviewed & are unremarkable except as noted in HPI and below Patient History Medical History Atrial fibrillation Breast cancer Chronic back pain Chronic pancreatitis Depression Facet arthropathy, lumbar Heart murmur HLD (hyperlipidemia) Hypertension Hypothyroidism Lumbar radiculopathy Migraine headache Nose fracture (~06/29/21) Tinnitus UTI (urinary tract infection) Surgical History History of colonoscopy History of hysterectomy Hx of breast surgery Hx of cholecystectomy Hx of oophorectomy Hx of tonsillectomy Family History Father Brain tumor Congestive heart failure Mother Hypertension Stroke Grandfather Stroke Social History household members: spouse Smoking Status: Former smoker alcohol intake: current Smoking Status: Former smoker alcohol intake frequency: other Alcohol type: wine Substance Use Type: does not use Exam Initial Vital Signs Initial Vital Signs: Vital Signs Temperature 97.9 F 01/23/23 14:27 Pulse Rate 62 01/23/23 14:27 Respiratory Rate 20 01/23/23 14:27 Blood Pressure 181/94 H 01/23/23 14:27 Pulse Oximetry 100 01/23/23 14:27 Oxygen Delivery Method Room Air 01/23/23 14:27 GENERAL: Alert pleasant 72-year-old female and in no acute distress. HEENT: Head atraumatic,EOMI, pupils reactive, face symmetric, moist mucous membranes CARDIOVASCULAR: Irregularly irregular RESPIRATORY: Breath sounds equal bilaterally, no wheezes rales or rhonchi. ABDOMEN: Soft, nontender. Normoactive bowel sounds all 4 quadrants. No guarding or rebound. EXTREMITIES: Normal range of motion, no clubbing or edema. Neurovascularly intact NEUROLOGICAL: Alert and oriented x4.Normal gait and speech. SKIN: Warm, dry, no laceration, no petechiae, no rashes or lesions. Course Orders Ordered: ED Orders 01/23/23 14:33 XR chest 1V Stat EKG-12 Lead Stat 01/23/23 14:40 BNP [NT-proBNP (BNP-Adult 18+)] Stat Complete Blood Count AUTO DIFF Stat Comprehensive Metabolic Panel Stat Lipase Stat MAG [Magnesium] Stat Troponin & CK Cardiac Panel Stat 01/23/23 16:45 Trop I [Troponin I] Stat Discontinued Medications Aspirin (Aspirin 81 Mg Chew Tab) 324 mg PO NOW ONE Stop: 01/23/23 14:34 Last Admin: 01/23/23 15:27 Dose: 243 mg Documented By: BEVERLY Nitroglycerin (Nitroglycerin 0.4 Mg Sl Tab) 0.4 mg SL NOW ONE Stop: 01/23/23 15:39 Last Admin: 01/23/23 15:57 Dose: 0.4 mg Documented By: CTS Vital Signs Vital signs: Vital Signs - 8 hr 01/23/23 14:27 01/23/23 15:32 01/23/23 15:45 Temperature 97.9 F Pulse Rate 62 72 Respiratory Rate 20 27 H Blood Pressure 181/94 H 164/94 H Pulse Oximetry 100 98 Oxygen Delivery Method Room Air 01/23/23 15:45 01/23/23 15:57 01/23/23 16:00 Temperature Pulse Rate 80 68 Respiratory Rate 23 Blood Pressure 164/70 H 147/67 H Pulse Oximetry 97 Oxygen Delivery Method 01/23/23 16:00 01/23/23 16:03 01/23/23 16:03 Temperature Pulse Rate 67 67 Respiratory Rate 20 25 H Blood Pressure 135/62 Pulse Oximetry 96 96 Oxygen Delivery Method 01/23/23 16:30 01/23/23 16:30 01/23/23 17:00 Temperature Pulse Rate 58 L Respiratory Rate 17 Blood Pressure 141/80 H 139/75 Pulse Oximetry 98 Oxygen Delivery Method 01/23/23 17:00 01/23/23 17:07 01/23/23 17:07 Temperature Pulse Rate 56 L 62 Respiratory Rate 23 16 Blood Pressure 141/79 H Pulse Oximetry 96 98 Oxygen Delivery Method 01/23/23 17:30 01/23/23 17:30 01/23/23 18:00 Temperature Pulse Rate 63 57 L Respiratory Rate 20 24 Blood Pressure 155/78 H Pulse Oximetry 99 97 Oxygen Delivery Method 01/23/23 18:01 01/23/23 18:01 01/23/23 18:30 Temperature Pulse Rate 62 60 Respiratory Rate 22 29 H Blood Pressure 151/75 H Pulse Oximetry 96 98 Oxygen Delivery Method 01/23/23 18:31 01/23/23 18:31 Temperature Pulse Rate 64 Respiratory Rate Blood Pressure 161/74 H Pulse Oximetry 98 Oxygen Delivery Method Room Air MDM - Chest Pain Lab Data 01/23/23 14:40 01/23/23 14:40 Labs: Lab Results 01/23/23 01/23/23 01/23/23 Range/Units 14:40 14:40 14:40 WBC 12.6 H (4.5-11.0) X10^3/uL RBC 4.95 (4.0-5.2) X10^6/uL Hgb 14.6 (12.0-16.0) g/dL Hct 44.1 (36-46) % MCV 89.1 (80-100) fL MCH 29.5 (26-34) PG MCHC 33.2 (30-36) % RDW 15.9 H (11.6-14.8) % Plt Count 211 (150-400) X10^3/uL Neut % (Auto) 66.7 (50-75) % Lymph % (Auto) 22.2 L (25-40) % Bartholomew % (Auto) 10.0 (3-14) % Eos % (Auto) 0.4 L (2-4) % Baso % (Auto) 0.7 (0-2) % Neut # (Auto) 8400 H (8487-1472) /uL Lymph # (Auto) 2800 (6618-2746) /uL Bartholomew # (Auto) 1300 H (0-900) /uL Eos # (Auto) 0 (0-450) /uL Baso # (Auto) 100 (0-100) /uL Sodium 141 (137-145) mmol/L Potassium 4.1 (3.4-5.1) mmol/L Chloride 107 (98-107) mmol/L Carbon Dioxide 24 (22-32) mmol/L BUN 24 H (7-17) mg/dL Creatinine 1.14 H (0.52-1.04) mg/dL Estimated GFR 51 L (>60) mL/min BUN/Creatinine Ratio 21.1 (6-22) Glucose 100 (80-110) mg/dL Calcium 9.2 (8.4-10.2) mg/dL Magnesium 2.2 (1.6-2.3) mg/dL Total Bilirubin 0.6 (0.2-1.3) mg/dL AST 29 (14-36) IU/L ALT 27 (<35) IU/L Alkaline Phosphatase 81 (38-126) U/L Total Creatine Kinase 91 (30-135) U/L CK-MB (CK-2) TNP CK-MB (CK-2) Rel Index TNP Troponin I < 0.012 (0.01-0.034) ng/mL NT-Pro-B Natriuret Pep 2910 H (<125) pg/mL Total Protein 6.8 (6.3-8.2) g/dL Albumin 4.2 (3.5-5.0) g/dL Globulin 2.6 (1.7-4.1) g/dL Albumin/Globulin Ratio 1.6 (1.0-2.8) Lipase 46 (23-300) U/L 01/23/23 Range/Units 16:45 WBC (4.5-11.0) X10^3/uL RBC (4.0-5.2) X10^6/uL Hgb (12.0-16.0) g/dL Hct (36-46) % MCV (80-100) fL MCH (26-34) PG MCHC (30-36) % RDW (11.6-14.8) % Plt Count (150-400) X10^3/uL Neut % (Auto) (50-75) % Lymph % (Auto) (25-40) % Bartholomew % (Auto) (3-14) % Eos % (Auto) (2-4) % Baso % (Auto) (0-2) % Neut # (Auto) (8610-3045) /uL Lymph # (Auto) (2637-4819) /uL Bartholomew # (Auto) (0-900) /uL Eos # (Auto) (0-450) /uL Baso # (Auto) (0-100) /uL Sodium (137-145) mmol/L Potassium (3.4-5.1) mmol/L Chloride (98-107) mmol/L Carbon Dioxide (22-32) mmol/L BUN (7-17) mg/dL Creatinine (0.52-1.04) mg/dL Estimated GFR (>60) mL/min BUN/Creatinine Ratio (6-22) Glucose (80-110) mg/dL Calcium (8.4-10.2) mg/dL Magnesium (1.6-2.3) mg/dL Total Bilirubin (0.2-1.3) mg/dL AST (14-36) IU/L ALT (<35) IU/L Alkaline Phosphatase (38-126) U/L Total Creatine Kinase (30-135) U/L CK-MB (CK-2) CK-MB (CK-2) Rel Index Troponin I 0.012 (0.01-0.034) ng/mL NT-Pro-B Natriuret Pep (<125) pg/mL Total Protein (6.3-8.2) g/dL Albumin (3.5-5.0) g/dL Globulin (1.7-4.1) g/dL Albumin/Globulin Ratio (1.0-2.8) Lipase (23-300) U/L Urine Dip Bedside Urine Glucose 500 mg/dl Bedside Urine Bilirubin - Negative Bedside Urine Ketone - Negative Urine Specific [place] 1.010 Bedside Urine Occult Blood - Negative Bedside Urine pH 7.0 Bedside Urine Protein - Negative Bedside Urine Urobilinogen - Negative Bedside Urine Nitrite - Negative Bedside Urine Leukocytes - Negative Esterase Imaging Data Chest x-ray: Radiologist's Impression: PROCEDURE:? XR CHEST 1V ? INDICATIONS:? chest pain ? TECHNIQUE:? One view of the chest was acquired.? ? COMPARISON:? [facility], , XR CHEST 1V, 02/28/2022, 13:17. ? FINDINGS:? ? Surgical changes and devices:? None.? ? Lungs and pleura:? Lungs are clear.? No pleural effusions or pneumothorax.? ? Mediastinum:? Heart size is enlarged, accentuated by low lung volumes ? Bones and chest wall:? No suspicious bony lesions.? Overlying soft tissues appear unremarkable.? ? IMPRESSION:? Cardiomegaly without acute cardiopulmonary findings ? ? ? Approved by: Yan Hay M.D. on 01/23/2023 at 15:18? ECG Data Interpretation: EKG 1. Atrial fibrillation rate [address] changes EKG 2. Atrial fibrillation no ST changes T-wave inversion noted in lead 3 MDM Narrative Medical decision making narrative: Female history of atrial fibrillation on Eliquis presenting today with chest pain. She had a full workup including a nuclear stress test. She is 2- troponins and no EKG changes. She did receive nitroglycerin which did help with her pain. However it did make her headache worse. Creatinine today is 1.14 similar to previous in 2021 no electrolyte abnormality, mild leukocytosis 12 6. BNP is happy to be elevated 2400 without significant signs of congestive heart failure. It does appear that she is on Lasix, however she reports that she is not taking it. Will give her 3 days [address] Lasix [address] Mtz cardiology at [facility] updated patient's symptoms test results he was able to review her records reports that she was admitted to their hospital December 25 through the where she had nuclear stress test that was negative and a recent echocardiogram as well. Agree with outpatient follow-up for possible medication adjustment Discussion with patient and may need further testing. At this time recommend calling Cardiology tomorrow Discharge Plan Departure Patient Disposition: Home Clinical Impression: Atypical chest pain Instructions: DI for Atypical Chest Pain Activity Restrictions/Additional Instructions: *You have been diagnosed with atypical chest pain *What to do: At this time I do recommend that you call your dermatology sales representative 1st thing tomorrow morning. He may need some medication adjustment. If you are still having chest pain you may need cardiac catheterization which would happened with her dermatology sales representative. *Continue to take medications as directed Furosemide at 20 mg once daily for 3 days--> SENT TO [facility] *Follow up with your primary care provider in 2-3 days or call [phone] *Return to ER if you should have increasing chest pain palpitations shortness [or] any new, worsening or concerning symptoms Prescriptions: New furosemide [Lasix] 20 mg tablet 20 mg PO DAILY Qty: 3 0RF No Action aspirin 81 mg Tablet,Chewable 81 mg PO QAM ondansetron 4 mg tablet,disintegrating 4 mg PO Q8H PRN (Reason: nausea and vomiting) Qty: 10 0RF furosemide 20 mg Tablet 10 mg PO QAM cyclobenzaprine 10 mg tablet 10 mg PO TID PRN (Reason: muscle spasm) Qty: 21 0RF tramadol 50 mg tablet 50 mg PO Q8H PRN (Reason: pain) Qty: 20 0RF dexamethasone 4 mg tablet 4 mg PO DAILY Qty: 4 0RF urhrapypzc-memckjosxpatj-ewml [Fioricet] 50-300-40 mg capsule 1 cap PO Q6H PRN (Reason: pain) Qty: 10 0RF ondansetron 4 mg tablet,disintegrating 4 mg PO Q6-8H PRN (Reason: nausea and vomiting) Qty: 10 0RF rizatriptan [Maxalt] 10 mg tablet 10 mg PO Q2-4H PRN (Reason: migraine headache) Qty: 10 0RF Rx Instructions: do not exceed 3 doses per 24 hrs multivitamin Tablet 1 tab PO DAILY Qty: 0 atenolol 25 mg Tablet 25 mg PO DAILY levothyroxine [Synthroid] 150 mcg Tablet 150 mcg PO DAILY ezetimibe 10 mg Tablet 10 mg PO DAILY omega-3 fatty acids-vitamin E 1,000 mg Capsule 1 cap PO DAILY tramadol 50 mg tablet 50 mg PO Q8H PRN (Reason: pain) Qty: 14 0RF prednisone 20 mg tablet 40 mg PO DAILY Qty: 10 0RF rimegepant 75 mg tablet,disintegrating 75 mg PO Q OTHER DAY PRN (Reason: migraine headache) Qty: 10 0RF nortriptyline 10 mg capsule 10 mg PO BEDTIME Qty: 30 0RF metoclopramide HCl [Reglan] 10 mg tablet 10 mg PO Q6H PRN (Reason: nausea and vomiting) Qty: 14 0RF lorazepam [Ativan] 0.5 mg tablet 0.5 mg PO BID PRN (Reason: nausea and vomiting) Qty: 10 0RF hydrocodone-acetaminophen 5-325 mg tablet 1 tab PO Q4-6H PRN (Reason: pain) Qty: 10 0RF ketorolac 10 mg tablet 10 mg PO Q6H PRN (Reason: pain) Qty: 14 0RF lidocaine [Lidoderm] 5 % adhesive patch,medicated 1 patch TOP DAILY Qty: 15 0RF Rx Instructions: leave on most painful area for 12 hrs diazepam [Valium] 5 mg tablet 5 mg PO BID-QID PRN (Reason: muscle spasm) Qty: 10 0RF potassium chloride 10 mEq capsule, extended release 20 meq PO DAILY cholecalciferol (vitamin D3) 50 mcg (2,000 unit) capsule 50 mcg PO DAILY Eliquis 5 mg tablet 5 mg PO BID Referrals: Yuli Lang PA-C [Primary Care Provider] - Stand Alone Forms: Patient Portal/API
[2023-01-23 15:21] LABS: Alanine Aminotransferase 27 IU/L (<35); Albumin 4.2 g/dL (3.5-5.0); Albumin Globulin Ratio 1.6 (1.0-2.8); Alkaline Phosphatase 81 U/L (38-126); Aspartate Aminotransferase 29 IU/L (14-36); BUN Creatinine Ratio 21.1 (6-22); Bilirubin Total 0.6 mg/dL (0.2-1.3); Blood Urea Nitrogen 24 mg/dL (7-17); Calcium 9.2 mg/dL (8.4-10.2); Carbon Dioxide 24 mmol/L (22-32); Chloride 107 mmol/L (98-107); Creatine Kinase 91 U/L (30-135); Estimated Glomerular Filt Rate 51 mL/min (>60); Globulin 2.6 g/dL (1.7-4.1); Glucose 100 mg/dL (80-110); HEMOLYSIS < 15 (0-50); Lipase 46 U/L (23-300); Potassium 4.1 mmol/L (3.4-5.1); Sodium 141 mmol/L (137-145); Total Protein 6.8 g/dL (6.3-8.2)
[2023-01-23] MEDS: ASPIRIN 81 MG CHEW TAB 324 MG PO (15:27)
[2023-01-23 15:33] LABS: Troponin I < 0.012 ng/mL (0.01-0.034)
[2023-01-23 15:52] LABS: Magnesium 2.2 mg/dL (1.6-2.3)
[2023-01-23] MEDS: NITROGLYCERIN 0.4 MG SL TAB SL (15:57)
[2023-01-23 16:02] LABS: NT-proBNP (BNP-Adult 18+) 2910 pg/mL (<125)
--- NOTE | 2023-01-23 17:11 | PC.NURSE ---
pt just called me in the room. substernal chest pain came back 02/09. the one nitroglycerin that was given earlier started to give her a migrane. Vital signs are stable. DR. Perales aware. repeat EKG done.
[2023-01-23 17:19] LABS: Troponin I 0.012 ng/mL (0.01-0.034)
== END 2023-01-23 18:47 | disposition home or self-care (01) ==
PROVIDERS: Emergency Provider Emergency Medicine; PCP Physician Assistant
DX: R07.89 Other chest pain (principal); I48.91 Unspecified atrial fibrillation; Z79.01 Long term (current) use of anticoagulants; R79.89 Other specified abnormal findings of blood chemistry
CPT/HCPCS: 36415; 71045; 80053; 81003; 82550; 83690; 83735; 83880; 84484; 85025; 93005; 93010; 99284

== ENCOUNTER 2023-01-24 14:35 | Emergency (ER) | payer MEDICARE, OTHER, SELFPAY ==
[2021-06-25 17:33] VITALS: BMI 28.1
[2023-01-24 14:47] VITALS: BP 155/79; PULSE 74; RESP 16; TEMP 36.9; O2SAT 98; BMI 27.3
--- NOTE | 2023-01-24 14:50 | DI.RAD.S_ITS ---
PROCEDURE: XR CHEST 1V INDICATIONS: chest pain TECHNIQUE: One view of the chest was acquired. COMPARISON: [facility], CR, XR CHEST 1V, 01/23/2023, 14:35. [facility], CR, XR CHEST 1V, 02/28/2022, 13:17. FINDINGS: Surgical changes and devices: None. Lungs and pleura: Minimal streaky bibasilar opacities. No pleural effusion or pneumothorax. Mediastinum: Cardiac silhouette is mildly enlarged. Bones and chest wall: No suspicious bony lesions. Overlying soft tissues appear unremarkable. IMPRESSION: 1. Minimal bibasilar opacities present, likely atelectasis, but aspiration or pneumonia are difficult to fully exclude. 2. Cardiac silhouette is mildly enlarged without definite evidence of pulmonary vascular congestion at this time. Dictated by: Tano Baez M.D. on 01/24/2023 at 16:40 Approved by: Tano Baez M.D. on 01/24/2023 at 16:41
[2023-01-24 15:46] LABS: Add Manual Diff / Slide Review NO; Basophils Absolute Auto 100 /uL (0-100); Basophils Percent Auto 1.1 % (0-2); Eosinophils Absolute Auto 200 /uL (0-450); Hemoglobin 14.7 g/dL (12.0-16.0); Lymphocytes Absolute Auto 3600 /uL (1100-4500); Lymphocytes Percent Auto 34.8 % (25-40); Mean Corpuscular HGB Conc 32.6 % (30-36); Mean Corpuscular Hemoglobin 29.5 PG (26-34); Mean Corpuscular Volume 90.3 fL (80-100); Monocytes Absolute Auto 900 /uL (0-900); Monocytes Percent Auto 9.2 % (3-14); Neutrophils Absolute Auto 5500 /uL (1500-7000); Neutrophils Percent Auto 52.9 % (50-75); Platelet Count 205 X10^3/uL (150-400); Red Blood Cell Count 4.99 X10^6/uL (4.0-5.2); Red Cell Distribution Width 15.5 % (11.6-14.8); White Blood Cell Count 10.3 X10^3/uL (4.5-11.0)
[2023-01-24 15:55] LABS: INR 1.2 (0.9-1.3); Prothrombin Time 14.3 SECONDS (10.1-12.7)
[2023-01-24 15:57] LABS: Alanine Aminotransferase 29 IU/L (<35); Albumin 3.9 g/dL (3.5-5.0); Albumin Globulin Ratio 1.6 (1.0-2.8); Alkaline Phosphatase 73 U/L (38-126); Aspartate Aminotransferase 31 IU/L (14-36); BUN Creatinine Ratio 16.4 (6-22); Bilirubin Total 0.6 mg/dL (0.2-1.3); Blood Urea Nitrogen 21 mg/dL (7-17); Calcium 9.1 mg/dL (8.4-10.2); Carbon Dioxide 25 mmol/L (22-32); Chloride 108 mmol/L (98-107); Creatine Kinase 44 U/L (30-135); Estimated Glomerular Filt Rate 44 mL/min (>60); Globulin 2.5 g/dL (1.7-4.1); Glucose 96 mg/dL (80-110); HEMOLYSIS < 15 (0-50); Lipase 47 U/L (23-300); Magnesium 2.1 mg/dL (1.6-2.3); Potassium 4.6 mmol/L (3.4-5.1); Sodium 139 mmol/L (137-145); Total Protein 6.4 g/dL (6.3-8.2)
[2023-01-24 15:58] LABS: PTT Partial Thromboplastin Tim 36 SECONDS (26-36)
[2023-01-24 16:00] VITALS: BP 152/83; PULSE 76; RESP 18; O2SAT 95
[2023-01-24 16:09] LABS: Troponin I < 0.012 ng/mL (0.01-0.034)
[2023-01-24 16:12] VITALS: PULSE 69; RESP 14; O2SAT 97
--- NOTE | 2023-01-24 16:17 | ED_ITS ---
HPI - Chest Pain General Chief Complaint: Chest Pain Stated Complaint: chest pains/ was seen here yesterday Time Seen by Provider: 01/24/23 16:01 History of Present Illness HPI narrative: Patient is a 72-year-old female history of atrial fibrillation on Eliquis type 2 diabetes hypertension hyperlipidemia presenting today with chest pain. She reports that she has chest pain with exertion she is diaphoretic and short of breath. This has been happening to her for couple weeks. She is followed by cardiology at [facility], Dr. Salazar. She was admitted there December 25 through the where she would a nuclear stress test and an echocardiogram and was discharged. She continues to have exertional angina. I saw and evaluated her myself yesterday for the same. I spoke with Dr. Mtz cardiology at [facility] who recommended outpatient follow-up. 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 Today she continues to have chest pain with exertion relieved at rest. She is in AFib on the monitor heart rate is controlled in the 60s. Related Data Home Medications Medication Instructions Recorded Confirmed aspirin 81 mg chewable tablet 81 mg PO QAM 07/26/20 12/23/21 atenolol 25 mg tablet 25 mg PO DAILY 06/25/21 12/23/21 ezetimibe 10 mg tablet 10 mg PO DAILY 06/25/21 12/23/21 levothyroxine 150 mcg tablet 150 mcg PO DAILY 06/25/21 12/23/21 (Synthroid) multivitamin 1 tab PO DAILY ##0 06/25/21 12/23/21 omega-3 fatty acids-vitamin E 1 cap PO DAILY 06/25/21 12/23/21 1,000 mg capsule furosemide 20 mg tablet 10 mg PO QAM 07/09/21 12/23/21 apixaban 5 mg tablet (Eliquis) 5 mg PO BID 07/22/21 12/23/21 cholecalciferol (vitamin D3) 50 50 mcg PO DAILY 07/22/21 12/23/21 mcg (2,000 unit) capsule potassium chloride 10 mEq 20 meq PO DAILY 07/22/21 12/23/21 capsule,extended release Previous Rx's Medication Instructions Recorded ondansetron 4 mg disintegrating 4 mg PO Q8H PRN nausea and 06/24/21 tablet vomiting #10 tabs tramadol 50 mg tablet 50 mg PO Q8H PRN pain #14 tabs 02/28/22 vgyljyhpyo-ryvrkswwyhhvy-qtuwviaj 1 cap PO Q6H PRN pain #10 caps 05/30/22 50 mg-300 mg-40 mg capsule (Fioricet) ondansetron 4 mg disintegrating 4 mg PO Q6-8H PRN nausea and 06/15/22 tablet vomiting #10 tabs rizatriptan 10 mg tablet (Maxalt) 10 mg PO Q2-4H PRN migraine 06/16/22 headache #10 tabs nortriptyline 10 mg capsule 10 mg PO BEDTIME #30 caps 06/17/22 prednisone 20 mg tablet 40 mg PO DAILY #10 tabs 06/17/22 rimegepant 75 mg disintegrating 75 mg PO Q OTHER DAY PRN migraine 06/17/22 tablet headache #10 tabs metoclopramide HCl 10 mg tablet 10 mg PO Q6H PRN nausea and 06/18/22 (Reglan) vomiting #14 tabs lorazepam 0.5 mg tablet (Ativan) 0.5 mg PO BID PRN nausea and 06/19/22 vomiting #10 tabs diazepam 5 mg tablet (Valium) 5 mg PO BID-QID PRN muscle spasm 08/08/22 #10 tabs hydrocodone 5 mg-acetaminophen 325 1 tab PO Q4-6H PRN pain #10 tabs 08/08/22 mg tablet ketorolac 10 mg tablet 10 mg PO Q6H PRN pain #14 tabs 08/08/22 lidocaine 5 % topical patch 1 patch topical DAILY #15 ea 08/08/22 (Lidoderm) furosemide 20 mg tablet (Lasix) 20 mg PO DAILY #3 tabs 01/23/23 isosorbide mononitrate 30 mg 30 mg PO DAILY #30 tabs 01/24/23 tablet,extended release 24 hr Allergies Allergy/AdvReac Type Severity Reaction Status Date / Time lisinopril Allergy Severe Anaphylaxis Verified 01/23/23 16:10 metformin AdvReac Vomiting Verified 01/23/23 16:10 Patient History Medical History Atrial fibrillation Breast cancer Chronic back pain Chronic pancreatitis Depression Facet arthropathy, lumbar Heart murmur HLD (hyperlipidemia) Hypertension Hypothyroidism Lumbar radiculopathy Migraine headache Nose fracture (~06/29/21) Tinnitus UTI (urinary tract infection) Surgical History History of colonoscopy History of hysterectomy Hx of breast surgery Hx of cholecystectomy Hx of oophorectomy Hx of tonsillectomy Family History Father Brain tumor Congestive heart failure Mother Hypertension Stroke Grandfather Stroke Social History household members: spouse Smoking Status: Former smoker alcohol intake: current Smoking Status: Former smoker alcohol intake frequency: other Alcohol type: wine Substance Use Type: does not use Exam Initial Vital Signs Initial Vital Signs: Vital Signs Temperature 98.4 F 01/24/23 14:47 Pulse Rate 74 01/24/23 14:47 Respiratory Rate 16 01/24/23 14:47 Blood Pressure 155/79 H 01/24/23 14:47 Pulse Oximetry 98 01/24/23 14:47 Oxygen Delivery Method Room Air 01/24/23 14:47 Course Orders Ordered: ED Orders 01/24/23 14:50 XR chest 1V Stat EKG-12 Lead Stat 01/24/23 15:08 BNP [NT-proBNP (BNP-Adult 18+)] Stat Comprehensive Metabolic Panel Stat Lipase Stat Magnesium Stat Troponin & CK Cardiac Panel Stat 01/24/23 15:36 Complete Blood Count AUTO DIFF Stat PTT Partial Thromboplastin Cuco Stat Prothrombin Time INR Stat 01/24/23 16:29 CT angio chest PE protocol Stat 01/24/23 17:05 Trop I [Troponin I] Stat Discontinued Medications Aspirin (Aspirin 81 Mg Chew Tab) 324 mg PO NOW ONE Stop: 01/24/23 14:51 Last Admin: 01/24/23 17:19 Dose: Not Given Documented By: FILI Vital Signs Vital signs: Vital Signs - 8 hr 01/24/23 14:47 01/24/23 16:00 01/24/23 16:12 Temperature 98.4 F Pulse Rate 74 76 69 Respiratory Rate 16 18 14 Blood Pressure 155/79 H 152/83 H Pulse Oximetry 98 95 97 Oxygen Delivery Method Room Air Room Air 01/24/23 16:30 01/24/23 16:30 01/24/23 17:00 Temperature Pulse Rate 65 70 Respiratory Rate 20 26 H Blood Pressure 170/80 H Pulse Oximetry 97 97 Oxygen Delivery Method Room Air MDM - Chest Pain Lab Data 01/24/23 15:36 01/24/23 15:08 Labs: Lab Results 01/24/23 01/24/23 01/24/23 Range/Units 15:08 15:08 15:36 WBC 10.3 (4.5-11.0) X10^3/uL RBC 4.99 (4.0-5.2) X10^6/uL Hgb 14.7 (12.0-16.0) g/dL Hct 45.0 (36-46) % MCV 90.3 (80-100) fL MCH 29.5 (26-34) PG MCHC 32.6 (30-36) % RDW 15.5 H (11.6-14.8) % Plt Count 205 (150-400) X10^3/uL Neut % (Auto) 52.9 (50-75) % Lymph % (Auto) 34.8 (25-40) % Vance % (Auto) 9.2 (3-14) % Eos % (Auto) 2.0 (2-4) % Baso % (Auto) 1.1 (0-2) % Neut # (Auto) 5500 (5918-6061) /uL Lymph # (Auto) 3600 (9798-9254) /uL Vance # (Auto) 900 (0-900) /uL Eos # (Auto) 200 (0-450) /uL Baso # (Auto) 100 (0-100) /uL PT (10.1-12.7) SECONDS INR (0.9-1.3) APTT (26-36) SECONDS Sodium 139 (137-145) mmol/L Potassium 4.6 (3.4-5.1) mmol/L Chloride 108 H (98-107) mmol/L Carbon Dioxide 25 (22-32) mmol/L BUN 21 H (7-17) mg/dL Creatinine 1.28 H (0.52-1.04) mg/dL Estimated GFR 44 L (>60) mL/min BUN/Creatinine Ratio 16.4 (6-22) Glucose 96 (80-110) mg/dL Calcium 9.1 (8.4-10.2) mg/dL Magnesium 2.1 (1.6-2.3) mg/dL Total Bilirubin 0.6 (0.2-1.3) mg/dL AST 31 (14-36) IU/L ALT 29 (<35) IU/L Alkaline Phosphatase 73 (38-126) U/L Total Creatine Kinase 44 (30-135) U/L CK-MB (CK-2) TNP CK-MB (CK-2) Rel Index TNP Troponin I < 0.012 (0.01-0.034) ng/mL NT-Pro-B Natriuret Pep 1910 H (<125) pg/mL Total Protein 6.4 (6.3-8.2) g/dL Albumin 3.9 (3.5-5.0) g/dL Globulin 2.5 (1.7-4.1) g/dL Albumin/Globulin Ratio 1.6 (1.0-2.8) Lipase 47 (23-300) U/L 01/24/23 01/24/23 Range/Units 15:36 17:05 WBC (4.5-11.0) X10^3/uL RBC (4.0-5.2) X10^6/uL Hgb (12.0-16.0) g/dL Hct (36-46) % MCV (80-100) fL MCH (26-34) PG MCHC (30-36) % RDW (11.6-14.8) % Plt Count (150-400) X10^3/uL Neut % (Auto) (50-75) % Lymph % (Auto) (25-40) % Vance % (Auto) (3-14) % Eos % (Auto) (2-4) % Baso % (Auto) (0-2) % Neut # (Auto) (1751-9902) /uL Lymph # (Auto) (2988-9269) /uL Vance # (Auto) (0-900) /uL Eos # (Auto) (0-450) /uL Baso # (Auto) (0-100) /uL PT 14.3 H (10.1-12.7) SECONDS INR 1.2 (0.9-1.3) APTT 36 (26-36) SECONDS Sodium (137-145) mmol/L Potassium (3.4-5.1) mmol/L Chloride (98-107) mmol/L Carbon Dioxide (22-32) mmol/L BUN (7-17) mg/dL Creatinine (0.52-1.04) mg/dL Estimated GFR (>60) mL/min BUN/Creatinine Ratio (6-22) Glucose (80-110) mg/dL Calcium (8.4-10.2) mg/dL Magnesium (1.6-2.3) mg/dL Total Bilirubin (0.2-1.3) mg/dL AST (14-36) IU/L ALT (<35) IU/L Alkaline Phosphatase (38-126) U/L Total Creatine Kinase (30-135) U/L CK-MB (CK-2) CK-MB (CK-2) Rel Index Troponin I < 0.012 (0.01-0.034) ng/mL NT-Pro-B Natriuret Pep (<125) pg/mL Total Protein (6.3-8.2) g/dL Albumin (3.5-5.0) g/dL Globulin (1.7-4.1) g/dL Albumin/Globulin Ratio (1.0-2.8) Lipase (23-300) U/L Imaging Data Chest x-ray: Radiologist's Impression: PROCEDURE:? XR CHEST 1V ? INDICATIONS:? chest pain ? TECHNIQUE:? One view of the chest was acquired.? ? COMPARISON:? [facility], , XR CHEST 1V, 01/23/2023, 14:35.? [facility], , XR CHEST 1V, 02/28/2022, 13:17. ? FINDINGS:? ? Surgical changes and devices:? None.? ? Lungs and pleura:? Minimal streaky bibasilar opacities.? No pleural effusion or pneumothorax. ? Mediastinum:? Cardiac silhouette is mildly enlarged. ? Bones and chest wall:? No suspicious bony lesions.? Overlying soft tissues appear unremarkable.? ? IMPRESSION:? 1. Minimal bibasilar opacities present, likely atelectasis, but aspiration or pneumonia are difficult to fully exclude. 2. Cardiac silhouette is mildly enlarged without definite evidence of pulmonary vascular congestion at this time.? ? ? Dictated by: Tano Baez M.D. on 01/24/2023 at 16:40? CT scan - chest: Radiologist's Impression: PROCEDURE:? CT ANGIO CHEST PE PROTOCOL ? INDICATIONS:? chest pain sob ? TECHNIQUE:? After the administration of intravenous contrast, 2 mm thick sections acquired from the pulmonary apices to the posterior costophrenic angles.? 3-dimensional maximum intensity projection (MIP) coronal and sagittal reformats were then acquired through the thorax.? For radiation dose reduction, the following was used:? automated exposure control, adjustment of mA and/or kV according to patient size.? ? COMPARISON:? None. ? FINDINGS:? Image quality:? Excellent.? ? Pulmonary arteries:? Pulmonary arteries are normal in size, and demonstrate no intraluminal filling defects to suggest central pulmonary embolism.? ? Lungs and pleura:? Mild patchy ground-glass opacities are of uncertain clinical significance.? They can simply be secondary to phase of respiration or can represent inflammatory change or mild volume overload.? No focal pneumonia.? No pleural effusions or pneumothorax.? Central and peripheral airways are patent.? ? Mediastinum:? Mild cardiomegaly.? Trace pericardial thickening..? No mediastinal or hilar adenopathy.? Thoracic aorta is normal in caliber and enhancement.? Esophagus is normal in caliber, without hiatal hernia.? ? Bones and chest wall:? No suspicious bony lesions.? Ribs and thoracic spine appear intact throughout.? Thyroid gland is unremarkable.? No axillary or supraclavicular adenopathy.? ? Abdomen:? Visualized upper abdominal solid organs appear normal in the early arterial phase of enhancement.? ? IMPRESSION:? ? 1. No evidence acute pulmonary emboli. ? 2. Mild cardiomegaly. ? 3. Mild patchy ground-glass opacities are of uncertain clinical significance.? They can potentially represent mild inflammatory change or mild fluid overload.? ? ? Dictated by: Leopoldo Hooper M.D. on 01/24/2023 at 17:23 ECG Data Interpretation: Atrial fibrillation [address] changes MDM Narrative Medical decision making narrative: Patient 72-year-old female history of atrial fibrillation with what sounds like stable angina. She is having chest pain shortness of breath diaphoresis with exertion. She again has 2- troponins continues to be in rate controlled atrial fibrillation. BNP is better than yesterday. Not having pain at rest. CT chest ruled out for PE, mild cardiomegaly there is some mild patchy ground-glass opacities which include mild inflammatory versus foot mild fluid overload. Based on patient's BNP and symptoms I suspect there is mild fluid overload. Mild exacerbation of congestive heart failure with elevated BNP though improved today would explain some of her symptoms as well. She states that she did not take any Lasix today she has not picked up the prescription yet cause it wasn't ready. She is not hypoxic. Dr. Quach, cardiology at [facility], he has reviewed records. States that she had a normal nuclear she had a normal EF would suggest Imdur. He is aware of the BNP. Thinks that she just might not be tolerating her AFib she was previous ly in sinus rhythm. Her rate is controlled however it might be different when she is ambulating. Patient has an appointment with Cardiology next week. After talking with Cardiology the really is no indication for admission. Will start her on Imdur to see how she fails if it helps her symptoms also recommend that she take Lasix to help treat mild fluid overload. Discharge Plan Departure Patient Disposition: Home Clinical Impression: Stable angina, Atrial fibrillation, Congestive heart failure Instructions: Atrial Fibrillation, DI for Angina Activity Restrictions/Additional Instructions: *You have been diagnosed with angina, atrial fibrillation, congestive heart *What to do: Please keep taking Lasix seems to be helping. Workup today is again negative. Follow-up with Cardiology. *Continue to take medications as directed Keep taking Lasix once daily to help this might help You breathe a little bit better Imdur 30 mg once a day-->Sent to [facility] *Follow up with your primary care provider in 2-3 days or call [phone] Follow-up with cardiology as scheduled week *Return to ER if you should have significant chest pain passing out dizziness lightheadedness shortness of breath or any new, worsening or concerning symptoms Prescriptions: New isosorbide mononitrate 30 mg tablet extended release 24 hr 30 mg PO DAILY Qty: 30 0RF No Action aspirin 81 mg Tablet,Chewable 81 mg PO QAM ondansetron 4 mg tablet,disintegrating 4 mg PO Q8H PRN (Reason: nausea and vomiting) Qty: 10 0RF furosemide 20 mg Tablet 10 mg PO QAM [id number] [Fioricet] 50-300-40 mg capsule 1 cap PO Q6H PRN (Reason: pain) Qty: 10 0RF ondansetron 4 mg tablet,disintegrating 4 mg PO Q6-8H PRN (Reason: nausea and vomiting) Qty: 10 0RF rizatriptan [Maxalt] 10 mg tablet 10 mg PO Q2-4H PRN (Reason: migraine headache) Qty: 10 0RF Rx Instructions: do not exceed 3 doses per 24 hrs furosemide [Lasix] 20 mg tablet 20 mg PO DAILY Qty: 3 0RF multivitamin Tablet 1 tab PO DAILY Qty: 0 atenolol 25 mg Tablet 25 mg PO DAILY levothyroxine [Synthroid] 150 mcg Tablet 150 mcg PO DAILY ezetimibe 10 mg Tablet 10 mg PO DAILY omega-3 fatty acids-vitamin E 1,000 mg Capsule 1 cap PO DAILY tramadol 50 mg tablet 50 mg PO Q8H PRN (Reason: pain) Qty: 14 0RF prednisone 20 mg tablet 40 mg PO DAILY Qty: 10 0RF rimegepant 75 mg tablet,disintegrating 75 mg PO Q OTHER DAY PRN (Reason: migraine headache) Qty: 10 0RF nortriptyline 10 mg capsule 10 mg PO BEDTIME Qty: 30 0RF metoclopramide HCl [Reglan] 10 mg tablet 10 mg PO Q6H PRN (Reason: nausea and vomiting) Qty: 14 0RF lorazepam [Ativan] 0.5 mg tablet 0.5 mg PO BID PRN (Reason: nausea and vomiting) Qty: 10 0RF hydrocodone-acetaminophen 5-325 mg tablet 1 tab PO Q4-6H PRN (Reason: pain) Qty: 10 0RF ketorolac 10 mg tablet 10 mg PO Q6H PRN (Reason: pain) Qty: 14 0RF lidocaine [Lidoderm] 5 % adhesive patch,medicated 1 patch TOP DAILY Qty: 15 0RF Rx Instructions: leave on most painful area for 12 hrs diazepam [Valium] 5 mg tablet 5 mg PO BID-QID PRN (Reason: muscle spasm) Qty: 10 0RF potassium chloride 10 mEq capsule, extended release 20 meq PO DAILY cholecalciferol (vitamin D3) 50 mcg (2,000 unit) capsule 50 mcg PO DAILY Eliquis 5 mg tablet 5 mg PO BID Referrals: Yuli Lang PA-C [Primary Care Provider] - Madhav Salazar MD [Non-Staff] - Stand Alone Forms: Patient Portal/API
--- NOTE | 2023-01-24 16:29 | DI.CT.S_ITS ---
PROCEDURE: CT ANGIO CHEST PE PROTOCOL INDICATIONS: chest pain sob TECHNIQUE: After the administration of intravenous contrast, 2 mm thick sections acquired from the pulmonary apices to the posterior costophrenic angles. 3-dimensional maximum intensity projection (MIP) coronal and sagittal reformats were then acquired through the thorax. For radiation dose reduction, the following was used: automated exposure control, adjustment of mA and/or kV according to patient size. COMPARISON: None. FINDINGS: Image quality: Excellent. Pulmonary arteries: Pulmonary arteries are normal in size, and demonstrate no intraluminal filling defects to suggest central pulmonary embolism. Lungs and pleura: Mild patchy ground-glass opacities are of uncertain clinical significance. They can simply be secondary to phase of respiration or can represent inflammatory change or mild volume overload. No focal pneumonia. No pleural effusions or pneumothorax. Central and peripheral airways are patent. Mediastinum: Mild cardiomegaly. Trace pericardial thickening.. No mediastinal or hilar adenopathy. Thoracic aorta is normal in caliber and enhancement. Esophagus is normal in caliber, without hiatal hernia. Bones and chest wall: No suspicious bony lesions. Ribs and thoracic spine appear intact throughout. Thyroid gland is unremarkable. No axillary or supraclavicular adenopathy. Abdomen: Visualized upper abdominal solid organs appear normal in the early arterial phase of enhancement. IMPRESSION: 1. No evidence acute pulmonary emboli. 2. Mild cardiomegaly. 3. Mild patchy ground-glass opacities are of uncertain clinical significance. They can potentially represent mild inflammatory change or mild fluid overload. Dictated by: Leopoldo Hooper M.D. on 01/24/2023 at 17:23 Approved by: Leopoldo Hooper M.D. on 01/24/2023 at 17:28
[2023-01-24 16:30] VITALS: BP 170/80; PULSE 65; RESP 20; O2SAT 97
[2023-01-24 17:00] VITALS: PULSE 70; RESP 26; O2SAT 97
[2023-01-24 17:12] LABS: NT-proBNP (BNP-Adult 18+) 1910 pg/mL (<125)
[2023-01-24 17:38] LABS: Troponin I < 0.012 ng/mL (0.01-0.034)
== END 2023-01-24 18:20 | disposition home or self-care (01) ==
PROVIDERS: Emergency Provider Emergency Medicine; PCP Physician Assistant
DX: I25.119 Atherosclerotic heart disease of native coronary artery with unspecified angina pectoris (principal); I11.0 Hypertensive heart disease with heart failure; I48.91 Unspecified atrial fibrillation; Z79.01 Long term (current) use of anticoagulants
CPT/HCPCS: 36415; 71045; 71275; 80053; 82550; 83690; 83735; 83880; 84484; 85025; 85610; 85730; 93005; 93010; 99284; Q9967

== ENCOUNTER → 2023-03-05 10:48 | Outpatient (CLI) | payer MEDICARE, OTHER, SELFPAY ==
[2021-06-25 17:33] VITALS: BMI 28.1
--- NOTE | 2023-03-05 10:50 | DI.MG.S_ITS ---
BILATERAL DIGITAL SCREENING MAMMOGRAM 3D/2D WITH CAD: 03/05/2023 Comparison is made to exams dated: 08/05/2020 mammogram, 08/10/2019 mammogram, 11/02/2018 mammogram, and 04/20/2018 mammogram - [facility]. There are scattered areas of fibroglandular density in both breasts (category b / 25%-50% glandular tissue). Current study was also evaluated with a Computer Aided Detection (CAD) system. There are benign calcifications in the left breast. There also are benign vascular calcifications in the right breast. No significant masses, calcifications, or other findings are seen in either breast. There has been no significant interval change. IMPRESSION: BENIGN There is no mammographic evidence of malignancy. A 1 year screening mammogram is recommended. This exam was interpreted at Station ID: [id number]. NOTE: For mammograms, a report in lay terms will be sent to the patient. Approximately 15% of breast malignancies will not be visualized mammographically. In the management of a palpable breast mass, a negative mammogram must not discourage biopsy of a clinically suspicious lesion. Electronically Signed By: Unique long/randa:03/07/2023 11:19:37 letter sent: Normal Exam ACR BI-RADS Category 2: Benign Finding(s) 3342F
== END ==
PROVIDERS: PCP Physician Assistant; Referring Provider Physician Assistant; Visit Provider Physician Assistant
DX: Z12.31 Encounter for screening mammogram for malignant neoplasm of breast (principal)
CPT/HCPCS: 77063; 77067

== ENCOUNTER 2023-03-12 08:23 | Emergency (ER) | payer MEDICARE, OTHER, SELFPAY ==
[2021-06-25 17:33] VITALS: BMI 28.1
[2023-03-12] VITALS (8 sets, daily range): BP systolic 122–142; BP diastolic 71–74; PULSE 64–87; RESP 16–18; TEMP 37.1; O2SAT 95–100; BMI 27.3
--- NOTE | 2023-03-12 08:25 | ED.BACK ---
HPI - Back Pain/Injury General Chief Complaint: Back Pain/Injury Stated Complaint: extreme back pain for 3 days, sweating Time Seen by Provider: 03/12/23 08:25 History of Present Illness HPI Narrative: 72-year-old female former smoker with history of atrial fibrillation and congestive heart failure on apixaban presents with her in the chief complaint of severe midline back pain with radiation into both hips and lateral thighs. She states the pain started rather suddenly 3 days ago in his worse when she moves and improves with rest. She denies any trauma or injury. She is on blood thinners as noted but has had no fever or chills. She denies any loss of control of bowel or bladder and denies any lower extremity weakness. She denies dizziness, lightheadedness, chest pain or shortness of breath and is otherwise well and free of complaint Related Data Home Medications Medication Instructions Recorded Confirmed aspirin 81 mg chewable tablet 81 mg PO QAM 07/26/20 12/23/21 atenolol 25 mg tablet 25 mg PO DAILY 06/25/21 12/23/21 ezetimibe 10 mg tablet 10 mg PO DAILY 06/25/21 12/23/21 levothyroxine 150 mcg tablet 150 mcg PO DAILY 06/25/21 12/23/21 (Synthroid) multivitamin 1 tab PO DAILY ##0 06/25/21 12/23/21 omega-3 fatty acids-vitamin E 1 cap PO DAILY 06/25/21 12/23/21 1,000 mg capsule furosemide 20 mg tablet 10 mg PO QAM 07/09/21 12/23/21 apixaban 5 mg tablet (Eliquis) 5 mg PO BID 07/22/21 12/23/21 cholecalciferol (vitamin D3) 50 50 mcg PO DAILY 07/22/21 12/23/21 mcg (2,000 unit) capsule potassium chloride 10 mEq 20 meq PO DAILY 07/22/21 12/23/21 capsule,extended release Previous Rx's Medication Instructions Recorded ondansetron 4 mg disintegrating 4 mg PO Q8H PRN nausea and 06/24/21 tablet vomiting #10 tabs tramadol 50 mg tablet 50 mg PO Q8H PRN pain #14 tabs 02/28/22 [id number] 1 cap PO Q6H PRN pain #10 caps 05/30/22 50 mg-300 mg-40 mg capsule (Fioricet) ondansetron 4 mg disintegrating 4 mg PO Q6-8H PRN nausea and 06/15/22 tablet vomiting #10 tabs rizatriptan 10 mg tablet (Maxalt) 10 mg PO Q2-4H PRN migraine 06/16/22 headache #10 tabs nortriptyline 10 mg capsule 10 mg PO BEDTIME #30 caps 06/17/22 prednisone 20 mg tablet 40 mg PO DAILY #10 tabs 06/17/22 rimegepant 75 mg disintegrating 75 mg PO Q OTHER DAY PRN migraine 06/17/22 tablet headache #10 tabs metoclopramide HCl 10 mg tablet 10 mg PO Q6H PRN nausea and 06/18/22 (Reglan) vomiting #14 tabs lorazepam 0.5 mg tablet (Ativan) 0.5 mg PO BID PRN nausea and 06/19/22 vomiting #10 tabs diazepam 5 mg tablet (Valium) 5 mg PO BID-QID PRN muscle spasm 08/08/22 #10 tabs hydrocodone 5 mg-acetaminophen 325 1 tab PO Q4-6H PRN pain #10 tabs 08/08/22 mg tablet ketorolac 10 mg tablet 10 mg PO Q6H PRN pain #14 tabs 08/08/22 lidocaine 5 % topical patch 1 patch topical DAILY #15 ea 08/08/22 (Lidoderm) furosemide 20 mg tablet (Lasix) 20 mg PO DAILY #3 tabs 01/23/23 isosorbide mononitrate 30 mg 30 mg PO DAILY #30 tabs 01/24/23 tablet,extended release 24 hr diazepam 5 mg tablet (Valium) 5 mg PO BID-QID PRN muscle spasm 03/12/23 #10 tabs hydrocodone 5 mg-acetaminophen 325 1 tab PO Q4-6H PRN pain #10 tabs 03/12/23 mg tablet methylprednisolone 4 mg tablets in See Rx Instructions PO .COMPLEX 03/12/23 a dose pack (Medrol (Jabier)) #21 ea Allergies Allergy/AdvReac Type Severity Reaction Status Date / Time lisinopril Allergy Severe Anaphylaxis Verified 01/23/23 16:10 metformin AdvReac Vomiting Verified 01/23/23 16:10 Review of Systems Review of Systems Narrative: GENERAL: Denies chills, fatigue, malaise, fever, sweats. HEENT: Denies sinus pain, ear pain, sore throat, difficulty swallowing, dizziness. RESPIRATORY: Denies dyspnea, cough, wheezing, hemoptysis, sputum. CARDIOVASCULAR: Denies chest pain, palpitations, orthopnea, edema, GASTROINTESTINAL: Denies nausea, vomiting, abdominal pain, diarrhea, constipation, melena. : See HPI MUSCULOSKELETAL: See HPI SKIN: Denies rash, skin lesions, or other NEUROLOGIC: See HPI PSYCHIATRIC: No concerning psychosocial issues. 12 point review of systems is negative except for those stated above Patient History Medical History Atrial fibrillation Breast cancer Chronic back pain Chronic pancreatitis Depression Facet arthropathy, lumbar Heart murmur HLD (hyperlipidemia) Hypertension Hypothyroidism Lumbar radiculopathy Migraine headache Nose fracture (~06/29/21) Tinnitus UTI (urinary tract infection) Surgical History History of colonoscopy History of hysterectomy Hx of breast surgery Hx of cholecystectomy Hx of oophorectomy Hx of tonsillectomy Family History Father Brain tumor Congestive heart failure Mother Hypertension Stroke Grandfather Stroke Social History household members: spouse Smoking Status: Former smoker alcohol intake: current Smoking Status: Former smoker alcohol intake frequency: other Alcohol type: wine Substance Use Type: does not use Exam Narrative Exam Narrative: GENERAL: [72] year old patient appears stated age. Well-developed patient, in mild distress. HEAD: Atraumatic. Normocephalic. EYES: Pupils equal round and reactive. Extraocular motions intact. No scleral icterus. No injection or drainage. ENT: Nose without bleeding, purulent drainage. Throat without erythema, tonsillar hypertrophy or exudate. Airway patent. NECK: Trachea midline. Non tender CARDIOVASCULAR: Regular rate and rhythm without murmurs, gallops, or rubs. RESPIRATORY: Clear to auscultation. Breath sounds equal bilaterally. No wheezes, rales, or rhonchi. GASTROINTESTINAL: Abdomen soft, non-tender, nondistended. EXTREMITIES: No edema or joint tenderness. BACK: kier tender but free of any obvious external abnormalities. Patient exam notes decreased range of motion and muscle spasm, but no CVA tenderness, or vertebral point tenderness. There are no symptoms of cauda equina such as saddle anesthesia, and decreased reflexes, decreased sensation or strength. NEURO: AOx3. SKIN: No rash or erythema of visible areas Initial Vital Signs Initial Vital Signs: Vital Signs Temperature 98.7 F 03/12/23 08:34 Pulse Rate 87 03/12/23 08:34 Respiratory Rate 18 03/12/23 08:34 Blood Pressure 140/73 03/12/23 08:34 Pulse Oximetry 100 03/12/23 08:34 Oxygen Delivery Method Room Air 03/12/23 08:34 Course Orders Ordered: ED Orders 03/12/23 08:46 Ictotest Urine Stat Urinalysis and Microscopic Stat Urine Culture Stat 03/12/23 09:04 MR lumbar spine wo con Stat Discontinued Medications Diazepam (Diazepam 5 Mg Tablet) 5 mg PO NOW ONE Stop: 03/12/23 09:03 Last Admin: 03/12/23 09:12 Dose: 5 mg Documented By: KAVYA Vital Signs Vital signs: Vital Signs - 8 hr 03/12/23 08:34 03/12/23 09:24 03/12/23 09:30 Temperature 98.7 F Pulse Rate 87 77 73 Respiratory Rate 18 Blood Pressure 140/73 Pulse Oximetry 100 97 98 Oxygen Delivery Method Room Air Room Air 03/12/23 10:00 03/12/23 10:21 03/12/23 10:21 Temperature Pulse Rate 73 64 Respiratory Rate Blood Pressure 122/71 Pulse Oximetry 95 96 Oxygen Delivery Method Room Air Room Air 03/12/23 10:23 Temperature Pulse Rate Respiratory Rate 16 Blood Pressure Pulse Oximetry Oxygen Delivery Method MDM - Back Pain/Injury Lab Data Labs: Lab Results 03/12/23 Range/Units 08:46 Urine Color Yellow Urine Appearance Sl cloudy Urine pH 5.5 (4.5-8.0) Ur Specific [place] 1.020 (1.000-1.035) Urine Protein Negative (Negative) Urine Glucose (UA) 3+ H (Negative) g/dL Urine Ketones 1+ H (NEGATIVE) Urine Occult Blood 2+ H (Negative) Urine Nitrate Negative (Negative) Urine Bilirubin 1+ H (NEGATIVE) Ur Bilirubin Confirm Negative (Negative) Urine Urobilinogen 0.2 (0.2) E.U./dL Ur Leukocyte Esterase 1+ H (NEGATIVE) Urine RBC 1-5/hpf (0-5/HPF) Urine WBC 5-10/hpf H (0-5/HPF) Ur Squamous Epith Cells 5-10 /hpf H (0-5/HPF) Ur Renal Epithelial Cell 0-1/hpf (0-1/HPF) Amorphous Sediment 1+ Urine Bacteria Many (>30) H (None) Ur Culture Indicated? Specimen cultured Urine Dip Bedside Urine Glucose 1000 mg/dl Bedside Urine Bilirubin - Negative Bedside Urine Ketone +/- 5 Urine Specific [place] 1.015 Bedside Urine Occult Blood ++ Bedside Urine pH 6.0 Bedside Urine Protein - Negative Bedside Urine Urobilinogen - Negative Bedside Urine Nitrite - Negative Bedside Urine Leukocytes + 70 Esterase MDM Narrative Medical decision making narrative: [72] year old patient presents with severe low back pain in the absence of trauma while on blood thinners Multiple etiologies for patient's symptoms considered including, but not limited to: [Epidural hematoma versus abscess versus cauda equina versus musculoskeletal versus UTI versus other] Prior Charts reviewed in our EMR Primary Historian: patient Labs reviewed and interpreted by myself: No significant abnormalities, urine sample with 1+ leukocyte esterase, some white cells Imaging reviewed: Lumbar MRI multi level degenerative disc disease and arthropathy resulting in varying degrees of central and foraminal stenosis including moderate to severe central canal stenosis Patient's symptoms improved over duration of stay with above-stated therapies. Thankfully there is no evidence of neurosurgical emergency requiring a specific intervention. As mentioned above there are some abnormal findings in the urine sample but it is unlikely a truly clean-catch and there is suggestion of possible contamination. Furthermore, patient has no urinary symptoms. I discussed with the patient holding off on treating a potential urinary tract infection until the culture results Findings and discharge diagnosis discussed with patient/family followed by verbalization of understanding Return precautions discussed with patient/family whom verbalize understanding of diagnosis and plan Discharge Plan Departure Patient Disposition: Home Clinical Impression: Lumbar disc disease with radiculopathy Instructions: DI for Low Back Pain Activity Restrictions/Additional Instructions: *You have been diagnosed with [lumbar pain, possible early radicular symptoms] *What to do: *Please continue to take your regular medications as directed. [x ] New medication prescriptions sent to your pharmacy: [ [facility]] [ ] New medication written as a paper prescription [ ] No new medications given *Please follow up with your primary care provider in 2-3 days, call for an appointment. Let them know you were seen in the Emergency Department and that we ask that you be seen in follow up. We will electronically transmit a record of today's note if your PCP is in our system *Return to Emergency Department if you should have any new, worsening or concerning symptoms, such as increasing pain, lower extremity weakness, loss of control of bowel or bladder or other concerning symptoms You have been prescribed a short course of narcotic medications. These are potentially dangerous and addictive medications that should be used carefully. While on these medications you cannot drive or operate heavy machinery. Additionally, you cannot sign legal documents or perform any duties such as this. Many people get constipated on narcotic medications so it would be advisable to discuss stool softeners with the pharmacist when you scrap picker your prescription. Please understand that we cannot provide further refills of narcotics or controlled substances through the ED and your pain management will need to be through your Primary Care Provider Prescriptions: New hydrocodone-acetaminophen 5-325 mg tablet 1 tab PO Q4-6H PRN (Reason: pain) Qty: 10 0RF methylprednisolone [Medrol (Jabier)] 4 mg tablets,dose pack See Rx Instructions .ROUTE .COMPLEX Qty: 21 0RF Rx Instructions: orally per package directions diazepam [Valium] 5 mg tablet 5 mg PO BID-QID PRN (Reason: muscle spasm) Qty: 10 0RF No Action aspirin 81 mg Tablet,Chewable 81 mg PO QAM ondansetron 4 mg tablet,disintegrating 4 mg PO Q8H PRN (Reason: nausea and vomiting) Qty: 10 0RF furosemide 20 mg Tablet 10 mg PO QAM [id number] [Fioricet] 50-300-40 mg capsule 1 cap PO Q6H PRN (Reason: pain) Qty: 10 0RF ondansetron 4 mg tablet,disintegrating 4 mg PO Q6-8H PRN (Reason: nausea and vomiting) Qty: 10 0RF rizatriptan [Maxalt] 10 mg tablet 10 mg PO Q2-4H PRN (Reason: migraine headache) Qty: 10 0RF Rx Instructions: do not exceed 3 doses per 24 hrs furosemide [Lasix] 20 mg tablet 20 mg PO DAILY Qty: 3 0RF multivitamin Tablet 1 tab PO DAILY Qty: 0 atenolol 25 mg Tablet 25 mg PO DAILY levothyroxine [Synthroid] 150 mcg Tablet 150 mcg PO DAILY ezetimibe 10 mg Tablet 10 mg PO DAILY omega-3 fatty acids-vitamin E 1,000 mg Capsule 1 cap PO DAILY tramadol 50 mg tablet 50 mg PO Q8H PRN (Reason: pain) Qty: 14 0RF prednisone 20 mg tablet 40 mg PO DAILY Qty: 10 0RF rimegepant 75 mg tablet,disintegrating 75 mg PO Q OTHER DAY PRN (Reason: migraine headache) Qty: 10 0RF nortriptyline 10 mg capsule 10 mg PO BEDTIME Qty: 30 0RF metoclopramide HCl [Reglan] 10 mg tablet 10 mg PO Q6H PRN (Reason: nausea and vomiting) Qty: 14 0RF lorazepam [Ativan] 0.5 mg tablet 0.5 mg PO BID PRN (Reason: nausea and vomiting) Qty: 10 0RF hydrocodone-acetaminophen 5-325 mg tablet 1 tab PO Q4-6H PRN (Reason: pain) Qty: 10 0RF ketorolac 10 mg tablet 10 mg PO Q6H PRN (Reason: pain) Qty: 14 0RF lidocaine [Lidoderm] 5 % adhesive patch,medicated 1 patch TOP DAILY Qty: 15 0RF Rx Instructions: leave on most painful area for 12 hrs diazepam [Valium] 5 mg tablet 5 mg PO BID-QID PRN (Reason: muscle spasm) Qty: 10 0RF isosorbide mononitrate 30 mg tablet extended release 24 hr 30 mg PO DAILY Qty: 30 0RF potassium chloride 10 mEq capsule, extended release 20 meq PO DAILY cholecalciferol (vitamin D3) 50 mcg (2,000 unit) capsule 50 mcg PO DAILY Eliquis 5 mg tablet 5 mg PO BID Referrals: Yuli Lang PA-C [Primary Care Provider] - Stand Alone Forms: Patient Portal/API
--- NOTE | 2023-03-12 09:04 | DI.MRI.S_ITS ---
PROCEDURE: MR LUMBAR SPINE WO CON INDICATIONS: 72-year-old female with severe low back pain x3 days, history of breast cancer TECHNIQUE: Noncontrast sagittal T1 spin echo and T2 fast echo, sagittal STIR, and T2 fast spin echo through the lumbar spine. In cases with scoliosis, additional coronal T2 fast spin echo may be performed. COMPARISON: None. FINDINGS: Image quality: Excellent. Alignment and Curvature: There is normal bony alignment. Bone Marrow: Degenerative Modic type 1 endplate changes noted at L2-3. No evidence of metastatic lesion. Spinal Cord: Conus medullaris terminates at the L1 level. Visualized cord demonstrates normal signal and size. Paraspinous Soft Tissues: No paravertebral masses. T12-L1: Normal appearance. L1-L2: Normal appearance. L2-L3: Disc space narrowing with circumferential disc bulge and hypertrophic facet joints results in moderate central stenosis. Moderate bilateral foraminal stenosis L3-L4: Disc space narrowing and hypertrophic facet joints results in mild central stenosis. Moderate bilateral foraminal stenosis L4-L5: Disc space narrowing with circumferential disc bulge, hypertrophic facet joints and ligamentum flavum laxity combined result in moderate to severe central stenosis. Moderate left and mild right foraminal stenosis L5-S1: Disc space narrowing and circumferential disc bulge with hypertrophic facet joints. No central stenosis. Moderate bilateral foraminal stenosis IMPRESSION: Multilevel degenerative disc disease and arthropathy results in varying degrees of central and foraminal stenosis including moderate to severe central stenosis at L4-5 Approved by: Yan Hay M.D. on 03/12/2023 at 10:25
[2023-03-12] MEDS: diazePAM 5 MG TABLET PO (09:12)
[2023-03-12 09:22] LABS: Appearance Urine UA SL CLOUDY; Bilirubin Urine UA 1+ (NEGATIVE); Color Urine UA YELLOW; Glucose Urine UA 3+ g/dL (Negative); Ketones Urine UA 1+ (NEGATIVE); Leukocyte Esterase Urine UA 1+ (NEGATIVE); Nitrite Urine UA NEGATIVE (Negative); Occult Blood Urine UA 2+ (Negative); Protein Urine UA NEGATIVE (Negative); Urobilinogen Urine UA 0.2 E.U./dL (0.2); pH Urine UA 5.5 (4.5-8.0)
[2023-03-12 09:30] LABS: Amorphous Sediment Urine 1+; Bacteria Urine Many (>30); RBC Urine 1-5/HPF (0-5/HPF); Renal Epithelial Cells Urine 0-1/HPF (0-1/HPF); Squamous Epithelial Cell Urine 5-10 /HPF (0-5/HPF); WBC Urine 5-10/HPF (0-5/HPF)
[2023-03-12 09:33] LABS: Culture Indicated Urine Specimen Cultured; Ictotest Urine Negative (Negative)
--- NOTE | 2023-03-12 10:11 | PC.NURSE ---
Patient informed of need to change into a gown for MRI and remove all jewelry and metal. MRI from was reviewed with the patient and is signed in the room.
== END 2023-03-12 12:00 | disposition home or self-care (01) ==
PROVIDERS: Emergency Provider Emergency Medicine; PCP Physician Assistant
DX: M51.16 Intervertebral disc disorders with radiculopathy, lumbar region (principal)
CPT/HCPCS: 36415; 72148; 81001; 81003; 87086; 99283; 99284

== ENCOUNTER 2023-03-13 15:42 | Emergency (ER) | payer MEDICARE, OTHER, SELFPAY ==
[2021-06-25 17:33] VITALS: BMI 28.1
--- NOTE | 2023-03-13 15:49 | ED.GENADULT ---
HPI - General Adult General Chief complaint: Recheck/Abnormal Lab/Rx Stated complaint: Lower back pain Time Seen by Provider: 03/13/23 15:49 History of Present Illness HPI narrative: 72-year-old female former smoker with history of atrial fibrillation and congestive heart failure on apixaban returns with her and the chief complaint of severe low back and bilateral flank pain. She was seen and evaluated yesterday with a chief complaint of severe midline pain in the absence of any injury, she had pain that radiated into both hips and lateral thighs. The pain is worse when she moves and improves with rest. She has no fever or chills. She denies any numbness, tingling or weakness. She is had no loss of control of bowel or bladder. She denies any trauma or injury. She does take Eliquis as noted above. Yesterday she had lumbar MRI with evidence of multilevel degenerative disc disease and arthropathy and various points of central and foraminal stenosis with moderate to severe central stenosis at L4 and L5. Her pain was well controlled yesterday and she was sent with prescriptions for hydrocodone, Medrol, and Valium. She returns today stating that the medications did not help her at all Related Data Home Medications Medication Instructions Recorded Confirmed aspirin 81 mg chewable tablet 81 mg PO QAM 07/26/20 12/23/21 atenolol 25 mg tablet 25 mg PO DAILY 06/25/21 12/23/21 ezetimibe 10 mg tablet 10 mg PO DAILY 06/25/21 12/23/21 levothyroxine 150 mcg tablet 150 mcg PO DAILY 06/25/21 12/23/21 (Synthroid) multivitamin 1 tab PO DAILY ##0 06/25/21 12/23/21 omega-3 fatty acids-vitamin E 1 cap PO DAILY 06/25/21 12/23/21 1,000 mg capsule furosemide 20 mg tablet 10 mg PO QAM 07/09/21 12/23/21 apixaban 5 mg tablet (Eliquis) 5 mg PO BID 07/22/21 12/23/21 cholecalciferol (vitamin D3) 50 50 mcg PO DAILY 07/22/21 12/23/21 mcg (2,000 unit) capsule potassium chloride 10 mEq 20 meq PO DAILY 07/22/21 12/23/21 capsule,extended release Previous Rx's Medication Instructions Recorded ondansetron 4 mg disintegrating 4 mg PO Q8H PRN nausea and 06/24/21 tablet vomiting #10 tabs tramadol 50 mg tablet 50 mg PO Q8H PRN pain #14 tabs 02/28/22 fexlrmjapq-pauboffiabcom-zdqegyqz 1 cap PO Q6H PRN pain #10 caps 05/30/22 50 mg-300 mg-40 mg capsule (Fioricet) ondansetron 4 mg disintegrating 4 mg PO Q6-8H PRN nausea and 06/15/22 tablet vomiting #10 tabs rizatriptan 10 mg tablet (Maxalt) 10 mg PO Q2-4H PRN migraine 06/16/22 headache #10 tabs nortriptyline 10 mg capsule 10 mg PO BEDTIME #30 caps 06/17/22 prednisone 20 mg tablet 40 mg PO DAILY #10 tabs 06/17/22 rimegepant 75 mg disintegrating 75 mg PO Q OTHER DAY PRN migraine 06/17/22 tablet headache #10 tabs metoclopramide HCl 10 mg tablet 10 mg PO Q6H PRN nausea and 06/18/22 (Reglan) vomiting #14 tabs lorazepam 0.5 mg tablet (Ativan) 0.5 mg PO BID PRN nausea and 06/19/22 vomiting #10 tabs diazepam 5 mg tablet (Valium) 5 mg PO BID-QID PRN muscle spasm 08/08/22 #10 tabs hydrocodone 5 mg-acetaminophen 325 1 tab PO Q4-6H PRN pain #10 tabs 08/08/22 mg tablet ketorolac 10 mg tablet 10 mg PO Q6H PRN pain #14 tabs 08/08/22 lidocaine 5 % topical patch 1 patch topical DAILY #15 ea 08/08/22 (Lidoderm) furosemide 20 mg tablet (Lasix) 20 mg PO DAILY #3 tabs 01/23/23 isosorbide mononitrate 30 mg 30 mg PO DAILY #30 tabs 01/24/23 tablet,extended release 24 hr diazepam 5 mg tablet (Valium) 5 mg PO BID-QID PRN muscle spasm 03/12/23 #10 tabs hydrocodone 5 mg-acetaminophen 325 1 tab PO Q4-6H PRN pain #10 tabs 03/12/23 mg tablet methylprednisolone 4 mg tablets in See Rx Instructions PO .COMPLEX 03/12/23 a dose pack (Medrol (Jabier)) #21 ea Allergies Allergy/AdvReac Type Severity Reaction Status Date / Time lisinopril Allergy Severe Anaphylaxis Verified 03/13/23 15:55 metformin AdvReac Vomiting Verified 03/13/23 15:55 Review of Systems Review of Systems Narrative: GENERAL: Denies chills, fatigue, malaise, fever, sweats. HEENT: Denies sinus pain, ear pain, sore throat, difficulty swallowing, dizziness. RESPIRATORY: Denies dyspnea, cough, wheezing, hemoptysis, sputum. CARDIOVASCULAR: Denies chest pain, palpitations, orthopnea, edema, GASTROINTESTINAL: Denies nausea, vomiting, abdominal pain, diarrhea, constipation, melena. : Denies dysuria, frequency, incontinence, hematuria, urinary retention. MUSCULOSKELETAL: See HPI SKIN: Denies rash, skin lesions, or other NEUROLOGIC: See HPI PSYCHIATRIC: No concerning psychosocial issues. 12 point review of systems is negative except for those stated above Patient History Medical History Atrial fibrillation Breast cancer Chronic back pain Chronic pancreatitis Depression Facet arthropathy, lumbar Heart murmur HLD (hyperlipidemia) Hypertension Hypothyroidism Lumbar radiculopathy Migraine headache Nose fracture (~06/29/21) Tinnitus UTI (urinary tract infection) Surgical History History of colonoscopy History of hysterectomy Hx of breast surgery Hx of cholecystectomy Hx of oophorectomy Hx of tonsillectomy Family History Father Brain tumor Congestive heart failure Mother Hypertension Stroke Grandfather Stroke Social History household members: spouse Smoking Status: Former smoker alcohol intake: current Smoking Status: Former smoker alcohol intake frequency: other Alcohol type: wine Substance Use Type: does not use Exam Narrative Exam Narrative: GENERAL: [72] year old patient appears stated age. Well-developed patient, in mild distress. Obviously uncomfortable, ambulated without much difficulty HEAD: Atraumatic. Normocephalic. EYES: Pupils equal round and reactive. Extraocular motions intact. No scleral icterus. No injection or drainage. ENT: Nose without bleeding, purulent drainage. Throat without erythema, tonsillar hypertrophy or exudate. Airway patent. NECK: Trachea midline. Non tender CARDIOVASCULAR: Regular rate and rhythm without murmurs, gallops, or rubs. RESPIRATORY: Clear to auscultation. Breath sounds equal bilaterally. No wheezes, rales, or rhonchi. GASTROINTESTINAL: Abdomen soft, non-tender, nondistended. EXTREMITIES: No edema or joint tenderness. BACK: mill tender but free of any obvious external abnormalities. Patient exam notes decreased range of motion and muscle spasm, but no CVA tenderness, or vertebral point tenderness. There are no symptoms of cauda equina such as saddle anesthesia, and decreased reflexes, decreased sensation or strength. NEURO: AOx3. SKIN: No rash or erythema of visible areas Initial Vital Signs Initial Vital Signs: Vital Signs Temperature 98 F 03/13/23 15:53 Pulse Rate 78 03/13/23 15:53 Respiratory Rate 16 03/13/23 15:53 Blood Pressure 197/86 H 03/13/23 15:53 Pulse Oximetry 97 03/13/23 15:53 Oxygen Delivery Method Room Air 03/13/23 15:53 Course Orders Ordered: Discontinued Medications Hydromorphone HCl (Hydromorphone 1 Mg Inj) 1 mg IV NOW ONE Stop: 03/13/23 15:54 Last Admin: 03/13/23 16:12 Dose: 1 mg Documented By: TYSON Oxycodone/Acetaminophen (Oxycodone/Apap 5/325 Prepack) 1 bottle MISC SEEINSTR ONE Stop: 03/13/23 17:59 Last Admin: 03/13/23 18:09 Dose: 1 bottle Documented By: TYSON Medical Decision Making Lab Data 03/13/23 16:10 03/13/23 16:10 Labs: Lab Results 03/13/23 03/13/23 03/13/23 Range/Units 16:10 16:10 16:10 WBC 8.0 (4.5-11.0) X10^3/uL RBC 5.57 H (4.0-5.2) X10^6/uL Hgb 16.6 H (12.0-16.0) g/dL Hct 49.2 H (36-46) % MCV 88.4 (80-100) fL MCH 29.8 (26-34) PG MCHC 33.7 (30-36) % RDW 16.3 H (11.6-14.8) % Plt Count 233 (150-400) X10^3/uL Neut % (Auto) 53.5 (50-75) % Lymph % (Auto) 32.4 (25-40) % [place] % (Auto) 10.6 (3-14) % Eos % (Auto) 2.6 (2-4) % Baso % (Auto) 0.9 (0-2) % Neut # (Auto) 4300 (1352-3497) /uL Lymph # (Auto) 2600 (8058-3795) /uL [place] # (Auto) 800 (0-900) /uL Eos # (Auto) 200 (0-450) /uL Baso # (Auto) 100 (0-100) /uL PT 14.1 H (10.1-12.7) SECONDS INR 1.2 (0.9-1.3) APTT 37 H (26-36) SECONDS Sodium 141 (137-145) mmol/L Potassium 3.9 (3.4-5.1) mmol/L Chloride 105 (98-107) mmol/L Carbon Dioxide 27 (22-32) mmol/L BUN 16 (7-17) mg/dL Creatinine 1.17 H (0.52-1.04) mg/dL Estimated GFR 49 L (>60) mL/min BUN/Creatinine Ratio 13.7 (6-22) Glucose 118 H (80-110) mg/dL Lactate (0.7-2.1) mmol/L Calcium 9.8 (8.4-10.2) mg/dL Total Bilirubin 0.6 (0.2-1.3) mg/dL AST 41 H (14-36) IU/L ALT 32 (<35) IU/L Alkaline Phosphatase 103 (38-126) U/L Total Protein 7.4 (6.3-8.2) g/dL Albumin 4.3 (3.5-5.0) g/dL Globulin 3.1 (1.7-4.1) g/dL Albumin/Globulin Ratio 1.4 (1.0-2.8) 03/13/23 Range/Units 16:10 WBC (4.5-11.0) X10^3/uL RBC (4.0-5.2) X10^6/uL Hgb (12.0-16.0) g/dL Hct (36-46) % MCV (80-100) fL MCH (26-34) PG MCHC (30-36) % RDW (11.6-14.8) % Plt Count (150-400) X10^3/uL Neut % (Auto) (50-75) % Lymph % (Auto) (25-40) % [place] % (Auto) (3-14) % Eos % (Auto) (2-4) % Baso % (Auto) (0-2) % Neut # (Auto) (0923-8843) /uL Lymph # (Auto) (4650-5207) /uL [place] # (Auto) (0-900) /uL Eos # (Auto) (0-450) /uL Baso # (Auto) (0-100) /uL PT (10.1-12.7) SECONDS INR (0.9-1.3) APTT (26-36) SECONDS Sodium (137-145) mmol/L Potassium (3.4-5.1) mmol/L Chloride (98-107) mmol/L Carbon Dioxide (22-32) mmol/L BUN (7-17) mg/dL Creatinine (0.52-1.04) mg/dL Estimated GFR (>60) mL/min BUN/Creatinine Ratio (6-22) Glucose (80-110) mg/dL Lactate 1.6 (0.7-2.1) mmol/L Calcium (8.4-10.2) mg/dL Total Bilirubin (0.2-1.3) mg/dL AST (14-36) IU/L ALT (<35) IU/L Alkaline Phosphatase (38-126) U/L Total Protein (6.3-8.2) g/dL Albumin (3.5-5.0) g/dL Globulin (1.7-4.1) g/dL Albumin/Globulin Ratio (1.0-2.8) MDM Narrative Medical decision making narrative: [72] year old patient presents with low back pain in the absence of trauma Multiple etiologies for patient's symptoms considered including, but not limited to: [Lumbar radiculopathy versus epidural hematoma versus retroperitoneal hematoma versus spasm versus inflammation versus other] Prior Charts reviewed in our EMR Primary Historian: patient Labs reviewed and interpreted by myself: No significant abnormalities that would require a specific or immediate intervention Imaging reviewed:CT without significant findings Patient's symptoms improved over duration of stay with above-stated therapies. Findings and discharge diagnosis discussed with patient/family followed by verbalization of understanding Return precautions discussed with patient/family whom verbalize understanding of diagnosis and plan Discharge Plan Departure Patient Disposition: Home Clinical Impression: Low back pain, Central stenosis of spinal canal Instructions: DI for Low Back Pain Activity Restrictions/Additional Instructions: *You have been diagnosed with [low back pain due to central canal stenosis ] *What to do: *Please continue to take your regular medications as directed. *Please follow up with your primary care provider in 2-3 days, call for an appointment. Let them know you were seen in the Emergency Department and that we ask that you be seen in follow up. We will electronically transmit a record of today's note if your PCP is in our system *Return to Emergency Department if you should have any new, worsening or concerning symptoms, such as [fever greater than 101 F, shaking chills, worsening pain, persistent vomiting or other bothersome symptoms] Prescriptions: No Action aspirin 81 mg Tablet,Chewable 81 mg PO QAM ondansetron 4 mg tablet,disintegrating 4 mg PO Q8H PRN (Reason: nausea and vomiting) Qty: 10 0RF furosemide 20 mg Tablet 10 mg PO QAM [id number]-[id number] [Fioricet] 50-300-40 mg capsule 1 cap PO Q6H PRN (Reason: pain) Qty: 10 0RF ondansetron 4 mg tablet,disintegrating 4 mg PO Q6-8H PRN (Reason: nausea and vomiting) Qty: 10 0RF rizatriptan [Maxalt] 10 mg tablet 10 mg PO Q2-4H PRN (Reason: migraine headache) Qty: 10 0RF Rx Instructions: do not exceed 3 doses per 24 hrs furosemide [Lasix] 20 mg tablet 20 mg PO DAILY Qty: 3 0RF multivitamin Tablet 1 tab PO DAILY Qty: 0 atenolol 25 mg Tablet 25 mg PO DAILY levothyroxine [Synthroid] 150 mcg Tablet 150 mcg PO DAILY ezetimibe 10 mg Tablet 10 mg PO DAILY omega-3 fatty acids-vitamin E 1,000 mg Capsule 1 cap PO DAILY tramadol 50 mg tablet 50 mg PO Q8H PRN (Reason: pain) Qty: 14 0RF prednisone 20 mg tablet 40 mg PO DAILY Qty: 10 0RF rimegepant 75 mg tablet,disintegrating 75 mg PO Q OTHER DAY PRN (Reason: migraine headache) Qty: 10 0RF nortriptyline 10 mg capsule 10 mg PO BEDTIME Qty: 30 0RF metoclopramide HCl [Reglan] 10 mg tablet 10 mg PO Q6H PRN (Reason: nausea and vomiting) Qty: 14 0RF lorazepam [Ativan] 0.5 mg tablet 0.5 mg PO BID PRN (Reason: nausea and vomiting) Qty: 10 0RF hydrocodone-acetaminophen 5-325 mg tablet 1 tab PO Q4-6H PRN (Reason: pain) Qty: 10 0RF ketorolac 10 mg tablet 10 mg PO Q6H PRN (Reason: pain) Qty: 14 0RF lidocaine [Lidoderm] 5 % adhesive patch,medicated 1 patch TOP DAILY Qty: 15 0RF Rx Instructions: leave on most painful area for 12 hrs diazepam [Valium] 5 mg tablet 5 mg PO BID-QID PRN (Reason: muscle spasm) Qty: 10 0RF isosorbide mononitrate 30 mg tablet extended release 24 hr 30 mg PO DAILY Qty: 30 0RF hydrocodone-acetaminophen 5-325 mg tablet 1 tab PO Q4-6H PRN (Reason: pain) Qty: 10 0RF methylprednisolone [Medrol (Jabier)] 4 mg tablets,dose pack See Rx Instructions .ROUTE .COMPLEX Qty: 21 0RF Rx Instructions: orally per package directions diazepam [Valium] 5 mg tablet 5 mg PO BID-QID PRN (Reason: muscle spasm) Qty: 10 0RF potassium chloride 10 mEq capsule, extended release 20 meq PO DAILY cholecalciferol (vitamin D3) 50 mcg (2,000 unit) capsule 50 mcg PO DAILY Eliquis 5 mg tablet 5 mg PO BID Referrals: Kris Buck DO [Physician] - Aurelio Levin MD [Physician] - Yuli Lang PA-C [Primary Care Provider] - Stand Alone Forms: Patient Portal/API
[2023-03-13 15:53] VITALS: BP 197/86; PULSE 78; RESP 16; TEMP 36.6; O2SAT 97; BMI 27.3
--- NOTE | 2023-03-13 15:54 | DI.CT.S_ITS ---
PROCEDURE: CT ABDOMEN PELVIS W CON INDICATIONS: severe low back and bilateral flank pain, on eliquis TECHNIQUE: After the administration of intravenous contrast, axial sections acquired from the lung bases to the pubic symphysis. Coronal and sagittal reformats were performed. For radiation dose reduction, the following was used: automated exposure control, adjustment of mA and/or kV according to patient size. COMPARISON: [facility], CT, CT ABDOMEN PELVIS W CON, 06/24/2021, 20:32. FINDINGS: Lower thorax: The lung bases are clear. Heart size normal. No hiatal hernia. Liver: Normal in size and attenuation. No contour deformity present. Biliary system: Cholecystectomy. No intra or extrahepatic bile duct dilation. Pancreas: Unremarkable without mass or inflammation evident. Spleen: Normal in size and density. Adrenals: Normal morphology and density. Reproductive system: Unremarkable as visualized. Urinary system: Normal renal size and attenuation. No renal calculi, hydronephrosis, or solid mass present. Urinary bladder unremarkable. Gastrointestinal system: The bowel is unremarkable without evidence of bowel obstruction or inflammation. The stomach appears unremarkable. Multiple diverticula arise from the sigmoid colon without evidence of diverticulitis. Appendix: No findings to suggest acute appendicitis. Peritoneal spaces: No mesenteric or retroperitoneal adenopathy. No free air. No free fluid. Vasculature: The IVC, aorta and iliac vasculature are unremarkable. Abdominal wall: Abdominal wall intact without evidence of ventral or inguinal hernias. Musculoskeletal: Normal bone mineralization. Degenerative disc disease and arthropathy noted in lower lumbar spine. Severe L4-5 central stenosis. No acute fractures. IMPRESSION: 1. No acute CT findings in the abdomen and pelvis. 2. Multilevel degenerative disc disease and arthropathy in the lower lumbar spine associated with severe central stenosis L4-5 Approved by: Yan Hay M.D. on 03/13/2023 at 16:40
[2023-03-13] MEDS: HYDROMORPHONE 1 MG INJ IV (16:12)
[2023-03-13 16:21] VITALS: PULSE 67; O2SAT 94
[2023-03-13 16:22] LABS: Add Manual Diff / Slide Review NO; Basophils Absolute Auto 100 /uL (0-100); Basophils Percent Auto 0.9 % (0-2); Eosinophils Absolute Auto 200 /uL (0-450); Eosinophils Percent Auto 2.6 % (2-4); Hematocrit 49.2 % (36-46); Hemoglobin 16.6 g/dL (12.0-16.0); Lymphocytes Absolute Auto 2600 /uL (1100-4500); Lymphocytes Percent Auto 32.4 % (25-40); Mean Corpuscular HGB Conc 33.7 % (30-36); Mean Corpuscular Hemoglobin 29.8 PG (26-34); Mean Corpuscular Volume 88.4 fL (80-100); Monocytes Absolute Auto 800 /uL (0-900); Monocytes Percent Auto 10.6 % (3-14); Neutrophils Absolute Auto 4300 /uL (1500-7000); Neutrophils Percent Auto 53.5 % (50-75); Platelet Count 233 X10^3/uL (150-400); Red Blood Cell Count 5.57 X10^6/uL (4.0-5.2); Red Cell Distribution Width 16.3 % (11.6-14.8)
[2023-03-13 16:26] LABS: INR 1.2 (0.9-1.3); Prothrombin Time 14.1 SECONDS (10.1-12.7)
[2023-03-13 16:28] LABS: PTT Partial Thromboplastin Tim 37 SECONDS (26-36)
[2023-03-13 16:30] VITALS: BP 140/81; PULSE 63; RESP 14; O2SAT 93
[2023-03-13 16:30] LABS: Alanine Aminotransferase 32 IU/L (<35); Albumin 4.3 g/dL (3.5-5.0); Albumin Globulin Ratio 1.4 (1.0-2.8); Alkaline Phosphatase 103 U/L (38-126); Aspartate Aminotransferase 41 IU/L (14-36); BUN Creatinine Ratio 13.7 (6-22); Bilirubin Total 0.6 mg/dL (0.2-1.3); Blood Urea Nitrogen 16 mg/dL (7-17); Calcium 9.8 mg/dL (8.4-10.2); Carbon Dioxide 27 mmol/L (22-32); Chloride 105 mmol/L (98-107); Estimated Glomerular Filt Rate 49 mL/min (>60); Globulin 3.1 g/dL (1.7-4.1); Glucose 118 mg/dL (80-110); HEMOLYSIS < 15 (0-50); Lactate (Lactic Acid) 1.6 mmol/L (0.7-2.1); Potassium 3.9 mmol/L (3.4-5.1); Sodium 141 mmol/L (137-145); Total Protein 7.4 g/dL (6.3-8.2)
[2023-03-13 17:00] VITALS: BP 142/76; PULSE 75; RESP 13; O2SAT 95
[2023-03-13 17:30] VITALS: PULSE 62; RESP 13; O2SAT 95
[2023-03-13] MEDS: OXYCODONE/APAP 5/325 PREPACK 1 BOTTLE MISC (18:09)
[2023-03-13 18:14] VITALS: BP 152/65; PULSE 67; RESP 12; O2SAT 97
== END 2023-03-13 18:18 | disposition home or self-care (01) ==
PROVIDERS: Emergency Provider Emergency Medicine; PCP Physician Assistant
DX: M48.061 Spinal stenosis, lumbar region without neurogenic claudication (principal); M54.50 Low back pain, unspecified
CPT/HCPCS: 74177; 80053; 83605; 85025; 85610; 85730; 93005; 96374; 99283; 99284; J1170; Q9967

== ENCOUNTER 2023-04-13 11:40 | Emergency (ER) | payer MEDICARE, OTHER, SELFPAY ==
[2021-06-25 17:33] VITALS: BMI 28.1
[2023-04-13 11:42] VITALS: BP 147/69; PULSE 66; RESP 20; TEMP 36.9; O2SAT 98; BMI 27.3
--- NOTE | 2023-04-13 12:00 | PC.NURSE ---
States migraine that is similar to previous ones. Headache, nausea, right sided blurry vision, sensitivity to light/sound. Has been under increased stress due to daughter having surgery and driving to [place] frequently. Also states she ran out of her daily migraine prophylaxis for 4 days.
[2023-04-13] MEDS: ACETAMINOPHEN 325 MG TABLET 975 MG PO (12:10)
[2023-04-13] MEDS: DEXAMETHASONE 10 MG/ML VIAL IV (12:10)
[2023-04-13] MEDS: SODIUM CHLORIDE 0.9% 1,000 ML 1000 ML IV (12:10)
[2023-04-13 12:11] VITALS: BP 147/69; PULSE 66
[2023-04-13] MEDS: KETOROLAC 30 MG/ML VIAL 15 MG IV (12:11)
[2023-04-13] MEDS: diphenhydrAMINE 50 MG/ML VIAL 25 MG IV (12:11)
[2023-04-13] MEDS: PROCHLORPERAZINE 10 MG/2 ML VIAL IV (12:11)
[2023-04-13 12:31] VITALS: BP 123/66; PULSE 60; RESP 18; O2SAT 99
[2023-04-13 12:43] VITALS: BP 129/64; PULSE 63; RESP 16; O2SAT 99
[2023-04-13 13:37] VITALS: BP 128/66; PULSE 60; O2SAT 98
--- NOTE | 2023-04-13 14:02 | ED_ITS ---
HPI - Headache <Real Roa PA-C - Last Filed: 04/13/23 14:09> General Chief Complaint: Headache Stated Complaint: migrane Time Seen by Provider: 04/13/23 11:54 Mode of arrival: Ambulatory History of Present Illness HPI Narrative: 72-year-old female with past medical history migraines, AFib, on Eliquis presents to the ED with 3 days of right-sided headache. Patient endorses that this headache is similar to her prior headaches. Patient states that she was on some migraine prophylaxis, unsure which one, however she ran out and has not been taking it for a few days, after which this headache started. Patient took some Excedrin this morning with little relief. Patient denies vomiting, endorses nausea. Patient endorses photophobia, phonophobia. Patient states her vision in her right eye feels a little blurry. Patient denies lightheadedness, dizziness, syncope. Related Data Home Medications Medication Instructions Recorded Confirmed aspirin 81 mg chewable tablet 81 mg PO QAM 07/26/20 12/23/21 atenolol 25 mg tablet 25 mg PO DAILY 06/25/21 12/23/21 ezetimibe 10 mg tablet 10 mg PO DAILY 06/25/21 12/23/21 levothyroxine 150 mcg tablet 150 mcg PO DAILY 06/25/21 12/23/21 (Synthroid) multivitamin 1 tab PO DAILY ##0 06/25/21 12/23/21 omega-3 fatty acids-vitamin E 1 cap PO DAILY 06/25/21 12/23/21 1,000 mg capsule furosemide 20 mg tablet 10 mg PO QAM 07/09/21 12/23/21 apixaban 5 mg tablet (Eliquis) 5 mg PO BID 07/22/21 12/23/21 cholecalciferol (vitamin D3) 50 50 mcg PO DAILY 07/22/21 12/23/21 mcg (2,000 unit) capsule potassium chloride 10 mEq 20 meq PO DAILY 07/22/21 12/23/21 capsule,extended release Previous Rx's Medication Instructions Recorded ondansetron 4 mg disintegrating 4 mg PO Q8H PRN nausea and 06/24/21 tablet vomiting #10 tabs tramadol 50 mg tablet 50 mg PO Q8H PRN pain #14 tabs 02/28/22 gcizpsmjue-hteixuimcbxld-sbywqgbv 1 cap PO Q6H PRN pain #10 caps 05/30/22 50 mg-300 mg-40 mg capsule (Fioricet) ondansetron 4 mg disintegrating 4 mg PO Q6-8H PRN nausea and 06/15/22 tablet vomiting #10 tabs rizatriptan 10 mg tablet (Maxalt) 10 mg PO Q2-4H PRN migraine 06/16/22 headache #10 tabs nortriptyline 10 mg capsule 10 mg PO BEDTIME #30 caps 06/17/22 prednisone 20 mg tablet 40 mg PO DAILY #10 tabs 06/17/22 rimegepant 75 mg disintegrating 75 mg PO Q OTHER DAY PRN migraine 06/17/22 tablet headache #10 tabs metoclopramide HCl 10 mg tablet 10 mg PO Q6H PRN nausea and 06/18/22 (Reglan) vomiting #14 tabs lorazepam 0.5 mg tablet (Ativan) 0.5 mg PO BID PRN nausea and 06/19/22 vomiting #10 tabs diazepam 5 mg tablet (Valium) 5 mg PO BID-QID PRN muscle spasm 08/08/22 #10 tabs hydrocodone 5 mg-acetaminophen 325 1 tab PO Q4-6H PRN pain #10 tabs 08/08/22 mg tablet ketorolac 10 mg tablet 10 mg PO Q6H PRN pain #14 tabs 08/08/22 lidocaine 5 % topical patch 1 patch topical DAILY #15 ea 08/08/22 (Lidoderm) furosemide 20 mg tablet (Lasix) 20 mg PO DAILY #3 tabs 01/23/23 isosorbide mononitrate 30 mg 30 mg PO DAILY #30 tabs 01/24/23 tablet,extended release 24 hr diazepam 5 mg tablet (Valium) 5 mg PO BID-QID PRN muscle spasm 03/12/23 #10 tabs hydrocodone 5 mg-acetaminophen 325 1 tab PO Q4-6H PRN pain #10 tabs 03/12/23 mg tablet methylprednisolone 4 mg tablets in See Rx Instructions PO .COMPLEX 03/12/23 a dose pack (Medrol (Jabier)) #21 ea Allergies Allergy/AdvReac Type Severity Reaction Status Date / Time lisinopril Allergy Severe Anaphylaxis Verified 03/13/23 15:55 metformin AdvReac Vomiting Verified 03/13/23 15:55 Review of Systems <Real Roa PA-C - Last Filed: 04/13/23 14:09> Review of Systems ROS Unobtainable: All systems reviewed & are unremarkable except as noted in HPI and below Constitutional Constitutional: Denies chills, Denies fatigue, Denies fever(s), Denies frequent falls, Reports headache(s), Denies lethargy and Denies weakness Eyes Eyes: Reports blurry vision, Denies change in vision, Denies eye discharge, Denies irritation and Denies loss of vision ENT Ears, Nose, Mouth, and Throat: Denies change in voice, Denies dizziness, Reports headache(s), Denies neck pain, Denies sore throat and Denies throat swelling Cardiovascular Cardiovascular: Denies chest pain, Denies irregular heart rhythm, Denies lightheadedness, Denies palpitations, Denies dyspnea, Denies dyspnea on exertion and Denies orthopnea Respiratory Respiratory: Denies cough, Denies dyspnea, Denies dyspnea on exertion and Denies wheezing Gastrointestinal Gastrointestinal: Denies abdominal pain, Denies change in bowel habits, Denies diarrhea, Reports nausea and Denies vomiting Genitourinary Genitourinary: Denies hematuria, Denies flank pain, Denies urinary incontinence and Denies urinary urgency Musculoskeletal Musculoskeletal: Denies back pain, Denies muscle weakness, Denies neck pain, Denies numbness and Denies tingling Integumentary/Breasts Skin/Breast: Denies pruritus, Denies erythema, Denies rash and Denies wounds Neurologic Neurologic: Denies behavioral changes, Denies confusion, Denies dizziness, Denies frequent falls, Reports headache(s), Denies loss of vision, Denies numbness, Denies tingling and Denies weakness Psychiatric Psychiatric: Denies anxiety, Denies behavioral changes, Denies confusion, Denies depression, Denies homicidal ideation and Denies suicidal ideation Endocrine Endocrine: Denies fatigue, Denies flushing and Denies palpitations Hematologic/Lymphatic Hematologic/Lymphatic: Denies easy bruising Allergic/Immunologic Allergic/Immunologic: Denies urticaria, Denies throat swelling and Denies wheezing Patient History <Real Roa PA-C - Last Filed: 04/13/23 14:09> Medical History Atrial fibrillation Breast cancer Chronic back pain Chronic pancreatitis Depression Facet arthropathy, lumbar Heart murmur HLD (hyperlipidemia) Hypertension Hypothyroidism Lumbar radiculopathy Migraine headache Nose fracture (~06/29/21) Tinnitus UTI (urinary tract infection) Surgical History History of colonoscopy History of hysterectomy Hx of breast surgery Hx of cholecystectomy Hx of oophorectomy Hx of tonsillectomy Family History Father Brain tumor Congestive heart failure Mother Hypertension Stroke Grandfather Stroke Social History household members: spouse Smoking Status: Former smoker alcohol intake: current Smoking Status: Former smoker alcohol intake frequency: other Alcohol type: wine Substance Use Type: does not use Exam <Real Roa PA-C - Last Filed: 04/13/23 14:09> Narrative Exam Narrative: Const General:?cooperative, healthy appearing and comfortable [facility] Head:?normal to inspection Ears:?hearing grossly normal bilaterally Nose:?external nose normal Face and sinus:?normal facial exam and sinuses nontender Mouth:?oral mucosae normal Throat:?posterior oropharynx normal Eyes General:?appearance normal, both eyes and all related structures Neck Neck:?normal visual inspection and no lymphadenopathy noted Resp Effort & Inspection:?normal respiratory effort Auscultation:?clear to auscultation bilaterally Cardio Rate:?regular rate Rhythm:?regular rhythm Neuro General:?patient alert, patient awake and patient oriented x3; PERRLA; CN 1 through 12 intact bilaterally. Gait is normal. Initial Vital Signs Initial Vital Signs: Vital Signs Temperature 98.4 F 04/13/23 11:42 Pulse Rate 66 04/13/23 11:42 Respiratory Rate 20 04/13/23 11:42 Blood Pressure 147/69 H 04/13/23 11:42 Pulse Oximetry 98 04/13/23 11:42 Oxygen Delivery Method Room Air 04/13/23 11:42 <Lita Urbina DO - Last Filed: 04/13/23 19:15> Initial Vital Signs Initial Vital Signs: Vital Signs Temperature 98.4 F 04/13/23 11:42 Pulse Rate 66 04/13/23 11:42 Respiratory Rate 20 04/13/23 11:42 Blood Pressure 147/69 H 04/13/23 11:42 Pulse Oximetry 98 04/13/23 11:42 Oxygen Delivery Method Room Air 04/13/23 11:42 Course <Real Roa PA-C - Last Filed: 04/13/23 14:09> Orders Ordered: Discontinued Medications Acetaminophen (Acetaminophen 325 Mg Tablet) 975 mg PO NOW ONE Stop: 04/13/23 12:01 Last Admin: 04/13/23 12:10 Dose: 975 mg Documented By: SKY Dexamethasone (Dexamethasone 10 Mg/Ml Vial) 10 mg IV NOW ONE Stop: 04/13/23 12:01 Last Admin: 04/13/23 12:10 Dose: 10 mg Documented By: SKY Diphenhydramine HCl (Diphenhydramine 50 Mg/Ml Vial) 25 mg IV NOW ONE Stop: 04/13/23 12:01 Last Admin: 04/13/23 12:11 Dose: 25 mg Documented By: SKY Sodium Chloride (Normal Saline 0.9%) 1,000 mls @ 1,000 mls/hr IV BOLUS ONE Stop: 04/13/23 13:00 Last Infusion: 04/13/23 13:27 Dose: 0 mls/hr Documented By: Admin: 04/13/23 12:10 Dose: 1,000 mls/hr Documented By: SKY Ketorolac Tromethamine (Ketorolac 30 Mg/Ml Vial) 15 mg IV NOW ONE Stop: 04/13/23 12:01 Last Admin: 04/13/23 12:11 Dose: 15 mg Documented By: SKY Prochlorperazine (Prochlorperazine 10 Mg/2 Ml Vial) 10 mg IV NOW ONE Stop: 04/13/23 12:01 Last Admin: 04/13/23 12:11 Dose: 10 mg Documented By: SKY Vital Signs Vital signs: Vital Signs - 8 hr 04/13/23 11:42 04/13/23 12:11 04/13/23 12:31 Temperature 98.4 F Pulse Rate 66 66 60 Respiratory Rate 20 18 Blood Pressure 147/69 H 147/69 H 123/66 Pulse Oximetry 98 99 Oxygen Delivery Method Room Air Room Air 04/13/23 12:43 04/13/23 13:37 Temperature Pulse Rate 63 60 Respiratory Rate 16 Blood Pressure 129/64 128/66 Pulse Oximetry 99 98 Oxygen Delivery Method Room Air Room Air <Lita Urbina DO - Last Filed: 04/13/23 19:15> Orders Ordered: Discontinued Medications Acetaminophen (Acetaminophen 325 Mg Tablet) 975 mg PO NOW ONE Stop: 04/13/23 12:01 Last Admin: 04/13/23 12:10 Dose: 975 mg Documented By: SKY Dexamethasone (Dexamethasone 10 Mg/Ml Vial) 10 mg IV NOW ONE Stop: 04/13/23 12:01 Last Admin: 04/13/23 12:10 Dose: 10 mg Documented By: SKY Diphenhydramine HCl (Diphenhydramine 50 Mg/Ml Vial) 25 mg IV NOW ONE Stop: 04/13/23 12:01 Last Admin: 04/13/23 12:11 Dose: 25 mg Documented By: SKY Sodium Chloride (Normal Saline 0.9%) 1,000 mls @ 1,000 mls/hr IV BOLUS ONE Stop: 04/13/23 13:00 Last Infusion: 04/13/23 13:27 Dose: 0 mls/hr Documented By: Admin: 04/13/23 12:10 Dose: 1,000 mls/hr Documented By: SKY Ketorolac Tromethamine (Ketorolac 30 Mg/Ml Vial) 15 mg IV NOW ONE Stop: 04/13/23 12:01 Last Admin: 04/13/23 12:11 Dose: 15 mg Documented By: SKY Prochlorperazine (Prochlorperazine 10 Mg/2 Ml Vial) 10 mg IV NOW ONE Stop: 04/13/23 12:01 Last Admin: 04/13/23 12:11 Dose: 10 mg Documented By: SKY Vital Signs Vital signs: Vital Signs - 8 hr 04/13/23 11:42 04/13/23 12:11 04/13/23 12:31 Temperature 98.4 F Pulse Rate 66 66 60 Respiratory Rate 20 18 Blood Pressure 147/69 H 147/69 H 123/66 Pulse Oximetry 98 99 Oxygen Delivery Method Room Air Room Air 04/13/23 12:43 04/13/23 13:37 Temperature Pulse Rate 63 60 Respiratory Rate 16 Blood Pressure 129/64 128/66 Pulse Oximetry 99 98 Oxygen Delivery Method Room Air Room Air MDM - Headache <Real Roa PA-C - Last Filed: 04/13/23 14:09> [facility] [place] Narrative Medical decision making narrative: 72-year-old female with past medical history migraines, AFib, on Eliquis presents to the ED with 3 days of right-sided headache. Patient's symptoms are most concerning for a primary headache. It is reassuring that patient's current headache is similar to prior headaches. Patient was given Tylenol, ketorolac, Compazine, Benadryl, dexamethasone, IV fluids. Patient's symptoms resolved with medications. Patient does not complain of blurry vision any longer. Discharge patient home with ED return precautions. Recommend follow-up with PCP as soon as possible. Recommend good hydration. Patient verbalized understanding. Medical records reviewed: Yes Discharge Plan Departure Patient Disposition: Home Clinical Impression: Headache Instructions: DI for Headache Activity Restrictions/Additional Instructions: You were evaluated in the ED today for a headache. It is reassuring that the he adache is similar to your prior headaches. You were treated in the ED with Tylenol, ketorolac, Compazine, Benadryl, dexamethasone, IV fluids. Your symptoms resolved with the medications. You may take Tylenol, ibuprofen for the headache as needed. Please follow-up with your PCP as soon as possible. Return to the ED if you have worsening symptoms, persistent vomiting. Prescriptions: No Action aspirin 81 mg Tablet,Chewable 81 mg PO QAM ondansetron 4 mg tablet,disintegrating 4 mg PO Q8H PRN (Reason: nausea and vomiting) Qty: 10 0RF furosemide 20 mg Tablet 10 mg PO QAM [id number] [Fioricet] 50-300-40 mg capsule 1 cap PO Q6H PRN (Reason: pain) Qty: 10 0RF ondansetron 4 mg tablet,disintegrating 4 mg PO Q6-8H PRN (Reason: nausea and vomiting) Qty: 10 0RF rizatriptan [Maxalt] 10 mg tablet 10 mg PO Q2-4H PRN (Reason: migraine headache) Qty: 10 0RF Rx Instructions: do not exceed 3 doses per 24 hrs furosemide [Lasix] 20 mg tablet 20 mg PO DAILY Qty: 3 0RF multivitamin Tablet 1 tab PO DAILY Qty: 0 atenolol 25 mg Tablet 25 mg PO DAILY levothyroxine [Synthroid] 150 mcg Tablet 150 mcg PO DAILY ezetimibe 10 mg Tablet 10 mg PO DAILY omega-3 fatty acids-vitamin E 1,000 mg Capsule 1 cap PO DAILY tramadol 50 mg tablet 50 mg PO Q8H PRN (Reason: pain) Qty: 14 0RF prednisone 20 mg tablet 40 mg PO DAILY Qty: 10 0RF rimegepant 75 mg tablet,disintegrating 75 mg PO Q OTHER DAY PRN (Reason: migraine headache) Qty: 10 0RF nortriptyline 10 mg capsule 10 mg PO BEDTIME Qty: 30 0RF metoclopramide HCl [Reglan] 10 mg tablet 10 mg PO Q6H PRN (Reason: nausea and vomiting) Qty: 14 0RF lorazepam [Ativan] 0.5 mg tablet 0.5 mg PO BID PRN (Reason: nausea and vomiting) Qty: 10 0RF hydrocodone-acetaminophen 5-325 mg tablet 1 tab PO Q4-6H PRN (Reason: pain) Qty: 10 0RF ketorolac 10 mg tablet 10 mg PO Q6H PRN (Reason: pain) Qty: 14 0RF lidocaine [Lidoderm] 5 % adhesive patch,medicated 1 patch TOP DAILY Qty: 15 0RF Rx Instructions: leave on most painful area for 12 hrs diazepam [Valium] 5 mg tablet 5 mg PO BID-QID PRN (Reason: muscle spasm) Qty: 10 0RF isosorbide mononitrate 30 mg tablet extended release 24 hr 30 mg PO DAILY Qty: 30 0RF hydrocodone-acetaminophen 5-325 mg tablet 1 tab PO Q4-6H PRN (Reason: pain) Qty: 10 0RF methylprednisolone [Medrol (Jabier)] 4 mg tablets,dose pack See Rx Instructions .ROUTE .COMPLEX Qty: 21 0RF Rx Instructions: orally per package directions diazepam [Valium] 5 mg tablet 5 mg PO BID-QID PRN (Reason: muscle spasm) Qty: 10 0RF potassium chloride 10 mEq capsule, extended release 20 meq PO DAILY cholecalciferol (vitamin D3) 50 mcg (2,000 unit) capsule 50 mcg PO DAILY Eliquis 5 mg tablet 5 mg PO BID Referrals: Yuli Lang PA-C [Primary Care Provider] - Stand Alone Forms: Patient Portal/API <Lita Urbina DO - Last Filed: 07/12/23 19:15> Cosign ED Attending Cosignature Attestation: I was immediately available in the department for consultation. Documentation has been reviewed.
== END 2023-04-13 14:06 | disposition home or self-care (01) ==
PROVIDERS: Emergency Provider Student in an Organized Health Care Education/Training Program; PCP Physician Assistant
DX: R51.9 Headache, unspecified (principal); Z79.899 Other long term (current) drug therapy
CPT/HCPCS: 36415; 96361; 96374; 96375; 99284; J0780; J1100; J1200; J1885

== ENCOUNTER 2023-05-03 09:03 | Emergency (ER) | payer MEDICARE, OTHER, SELFPAY ==
[2021-06-25 17:33] VITALS: BMI 28.1
[2023-05-03 09:08] VITALS: BP 144/86; PULSE 63; RESP 18; TEMP 36.4; O2SAT 96
--- NOTE | 2023-05-03 09:13 | PC.NURSE ---
After pt reports not wanting to go to a physical therapist as her PCP recommended for her acute on chronic sciatica pain I asked if she would like to speak to our vp digital marketing social media and crm about maybe having a PT come to her home. Pt states she was uncomfortable that I would even recommend speaking with our [employer] and left the triage room.
== END 2023-05-03 09:19 | disposition left against medical advice (07) ==
PROVIDERS: Emergency Provider Emergency Medicine; PCP Physician Assistant
CPT/HCPCS: 99281

== ENCOUNTER 2023-09-11 09:36 | Emergency (ER) | payer MEDICARE, OTHER, SELFPAY ==
[2021-06-25 17:33] VITALS: BMI 28.1
[2023-09-11] VITALS (10 sets, daily range): BP systolic 150–176; BP diastolic 65–81; PULSE 75–110; RESP 12–25; TEMP 36.9; O2SAT 98–100; BMI 28.7
--- NOTE | 2023-09-11 09:57 | ED.FALL ---
HPI - Fall General Chief Complaint: Fall Stated Complaint: fall T-2/ back pain Time Seen by Provider: 09/11/23 09:54 Source: patient, RN notes reviewed and old records reviewed Mode of arrival: Ambulatory Limitations: no limitations History of Present Illness HPI Narrative: 73-year-old female with history of atrial fibrillation on Eliquis, migraines, hypertension, hypothyroidism with complaint fall 2 days ago the night of 09/09/2023. Patient states she got up to use the bathroom in the middle of the night it was dark and she tripped on the rug in the bathroom. She states she fell backwards striking the back of her head on the wall or door as well as landing on her buttocks. Since then she is had persistent right shoulder back pain, low back pain into her her hips and pelvis region. Patient states she is been able to ambulate but pain has not increased she denies any persistent headaches, denies any loss consciousness. No vision changes. She denies any new chest pain or shortness of breath. She denies any nausea or vomiting until this morning when she had an Excedrin around 6:00 a.m. patient states normal bowel movements, no black or bloody stools. She denies any incontinence or other urinary changes. She denies any new numbness, tingling or weakness of extremities. Patient states she had not tried anything else for pain. She states allergies to lisinopril and metformin. She has had prior hysterectomy, oophorectomy, cholecystectomy and tonsillectomy. Patient is former smoker, alcohol 2 glasses weekly, no recreational drugs. Patient's primary care is Yuli Lang. Related Data Home Medications Medication Instructions Recorded Confirmed aspirin 81 mg chewable tablet 81 mg PO QAM 07/26/20 12/23/21 atenolol 25 mg tablet 25 mg PO DAILY 06/25/21 12/23/21 ezetimibe 10 mg tablet 10 mg PO DAILY 06/25/21 12/23/21 levothyroxine 150 mcg tablet 150 mcg PO DAILY 06/25/21 12/23/21 (Synthroid) multivitamin 1 tab PO DAILY ##0 06/25/21 12/23/21 omega-3 fatty acids-vitamin E 1 cap PO DAILY 06/25/21 12/23/21 1,000 mg capsule furosemide 20 mg tablet 10 mg PO QAM 07/09/21 12/23/21 apixaban 5 mg tablet (Eliquis) 5 mg PO BID 07/22/21 12/23/21 cholecalciferol (vitamin D3) 50 50 mcg PO DAILY 07/22/21 12/23/21 mcg (2,000 unit) capsule potassium chloride 10 mEq 20 meq PO DAILY 07/22/21 12/23/21 capsule,extended release Previous Rx's Medication Instructions Recorded ondansetron 4 mg disintegrating 4 mg PO Q8H PRN nausea and 06/24/21 tablet vomiting #10 tabs tramadol 50 mg tablet 50 mg PO Q8H PRN pain #14 tabs 02/28/22 qfixvheltz-dsguhcevnoytq-uuetgdzi 1 cap PO Q6H PRN pain #10 caps 05/30/22 50 mg-300 mg-40 mg capsule (Fioricet) ondansetron 4 mg disintegrating 4 mg PO Q6-8H PRN nausea and 06/15/22 tablet vomiting #10 tabs rizatriptan 10 mg tablet (Maxalt) 10 mg PO Q2-4H PRN migraine 06/16/22 headache #10 tabs nortriptyline 10 mg capsule 10 mg PO BEDTIME #30 caps 06/17/22 prednisone 20 mg tablet 40 mg (2 x 20 mg) PO DAILY #10 tabs 06/17/22 rimegepant 75 mg disintegrating 75 mg PO Q OTHER DAY PRN migraine 06/17/22 tablet headache #10 tabs metoclopramide HCl 10 mg tablet 10 mg PO Q6H PRN nausea and 06/18/22 (Reglan) vomiting #14 tabs lorazepam 0.5 mg tablet (Ativan) 0.5 mg PO BID PRN nausea and 06/19/22 vomiting #10 tabs diazepam 5 mg tablet (Valium) 5 mg PO BID-QID PRN muscle spasm 08/08/22 #10 tabs hydrocodone 5 mg-acetaminophen 325 1 tab PO Q4-6H PRN pain #10 tabs 08/08/22 mg tablet ketorolac 10 mg tablet 10 mg PO Q6H PRN pain #14 tabs 08/08/22 lidocaine 5 % topical patch 1 patch topical DAILY #15 ea 08/08/22 (Lidoderm) furosemide 20 mg tablet (Lasix) 20 mg PO DAILY #3 tabs 01/23/23 isosorbide mononitrate 30 mg 30 mg PO DAILY #30 tabs 01/24/23 tablet,extended release 24 hr diazepam 5 mg tablet (Valium) 5 mg PO BID-QID PRN muscle spasm 03/12/23 #10 tabs hydrocodone 5 mg-acetaminophen 325 1 tab PO Q4-6H PRN pain #10 tabs 03/12/23 mg tablet methylprednisolone 4 mg tablets in See Rx Instructions PO .COMPLEX 03/12/23 a dose pack (Medrol (Jabier)) #21 ea hydrocodone 5 mg-acetaminophen 325 1 tab PO QID PRN pain #10 tabs 09/11/23 mg tablet Allergies Allergy/AdvReac Type Severity Reaction Status Date / Time lisinopril Allergy Severe Anaphylaxis Verified 03/13/23 15:55 metformin AdvReac Vomiting Verified 03/13/23 15:55 Review of Systems Review of Systems ROS Unobtainable: All systems reviewed & are unremarkable except as noted in HPI and below Patient History Medical History UTI (urinary tract infection) Facet arthropathy, lumbar Atrial fibrillation Lumbar radiculopathy Tinnitus Nose fracture (~06/29/21) HLD (hyperlipidemia) Heart murmur Chronic pancreatitis Depression Chronic back pain Breast cancer Migraine headache Hypothyroidism Hypertension Surgical History Hx of tonsillectomy History of colonoscopy Hx of oophorectomy History of hysterectomy Hx of breast surgery Hx of cholecystectomy Family History Father Brain tumor Congestive heart failure Mother Hypertension Stroke Grandfather Stroke Social History household members: spouse Smoking Status: Former smoker alcohol intake: current Smoking Status: Former smoker alcohol intake frequency: other Alcohol type: wine Substance Use Type: does not use Exam Narrative Exam Narrative: GEN: Patient appears in[mild/moderate/severe] distress. HEAD: No evidence of trauma, no raccoon/Mayer sign. NECK: Nontender, painless range of motion, trachea midline For Nexus criteria, there is no mid line tenderness, distracting injury, altered mental status, neuro deficit, recent EtOH. EYES: PERRLA, EOMI ENT: External inspection normal, trachea is midline, Nares are clear, no septal hematoma, no dental or oral injury, airway is normal and with normal occlusion, No bony tenderness RESP: Chest is nontender and has symmetric movement, no ecchymosis, breath sounds are normal no crackles, wheezes or rales CVS: Heart sounds are normal, no murmur noted, No JVD. ABG/GI: Nontender, soft, normal bowel sounds, no distention, no organomegaly, pelvic rock is negative NEURO: Oriented AOx3, neuro is grossly intact, sensation and motor is normal all 4 extremities moving, cranial nerves II through XII are intact, GCS is 15 PSYCH: Normal mood and affect SKIN: Intact, warm and dry, no crepitus and without decubitus BACK: No CVA tenderness, no vertebral tenderness, no step-off's, no crepitus EXT: Atraumatic, patient bilateral tenderness over the, full range of motion. No difficulty with straight leg lift bilaterally. No pedal edema, normal color and temperature, normal range of motion of extremities, 2+ pulses bilateral upper and lower extremities. Initial Vital Signs Initial Vital Signs: Vital Signs Pulse Rate 110 H 09/11/23 09:42 Pulse Oximetry 98 09/11/23 09:42 Course Orders Ordered: ED Orders 09/11/23 10:03 CT head/brain wo con Stat Chest [XR chest 1V] Stat XR pelvis 1-2V Stat 09/11/23 10:22 CT cervical spine wo con Stat Discontinued Medications Hydrocodone Bitart/Acetaminophen (Hydrocodone/Acet 5/325 Tablet) 2 tab PO NOW ONE Stop: 09/11/23 10:04 Last Admin: 09/11/23 10:10 Dose: 2 tab Documented By: KAVYA Ondansetron HCl (Ondansetron 4 Mg Odt) 4 mg SL NOW ONE Stop: 09/11/23 10:04 Last Admin: 09/11/23 10:10 Dose: 4 mg Documented By: KAVYA Vital Signs Vital signs: Vital Signs - 8 hr 09/11/23 09:42 09/11/23 09:43 09/11/23 09:43 Temperature Pulse Rate 110 H 107 H Respiratory Rate Blood Pressure 176/81 H Pulse Oximetry 98 99 Oxygen Delivery Method 09/11/23 09:49 09/11/23 10:00 09/11/23 10:01 Temperature 98.4 F Pulse Rate 95 H 94 H Respiratory Rate 18 25 H Blood Pressure 176/81 H 164/75 H Pulse Oximetry 100 99 Oxygen Delivery Method Room Air 09/11/23 10:01 09/11/23 10:30 09/11/23 10:44 Temperature Pulse Rate 106 H 80 79 Respiratory Rate 24 19 12 Blood Pressure Pulse Oximetry 100 100 99 Oxygen Delivery Method 09/11/23 10:44 09/11/23 11:00 09/11/23 11:00 Temperature Pulse Rate 88 Respiratory Rate 14 Blood Pressure 150/75 H 158/65 H Pulse Oximetry 99 Oxygen Delivery Method 09/11/23 11:30 09/11/23 11:30 09/11/23 11:45 Temperature Pulse Rate 75 80 Respiratory Rate 13 22 Blood Pressure 154/72 H 154/72 H Pulse Oximetry 99 98 Oxygen Delivery Method Room Air MDM - Fall Imaging Data CT scan - head: Radiologist's Impression: Jackie Javed??73??F??1950 ? Allergy/Adv: lisinopril, metformin (More??) Close Cervical Spine CT (Signed) Earle Terrazas - 09/11/23 Pelvis X-Ray (Signed) Earle Terrazas - 09/11/[address] (Signed) Earle Terrazas - 09/11/23 Chest X-Ray (Signed) Earle Terrazas - 09/11/23 Abdomen/Pelvis CT (Signed) Yan Hay - 03/13/23 Lumbar Spine MRI (Signed) Yan Hay - 03/12/23 Mammogram Screening (Signed) Unique Caceres - 03/05/23 Chest CTA (Signed) Leopoldo Hooper - 01/24/23 Chest X-Ray (Signed) Tano Baez - 01/24/23 Chest X-Ray (Signed) Yan Hay - 01/23/23 Brain MRI (Signed) Marcelle Manuel - 10/12/22 Abdomen Ultrasound (Signed) Lolis Valdez - 10/12/[address] (Signed) Jose M Mariee - 06/16/[address] (Signed) Vu Aldana - 06/15/[address] (Signed) Justin Ivy - 05/30/22 Bone Densitometry 05/24/22 Vascular Ultrasound (Signed) Elizabeth Parker - 03/26/22 Vascular Ultrasound (Signed) Justin Ivy - 02/28/22 Chest X-Ray (Signed) ManuelMacrelle - 02/28/22 Foot X-Ray (Signed) ManuelJuanjoanne - 02/28/22 Chest X-Ray (Signed) Lolis Valdez - 12/17/[address] (Signed) Papi Terrazas - 12/10/21 Abdomen/Pelvis CT (Signed) Lee Lazo - 12/10/21 Chest X-Ray (Signed) Lee Lazo - 12/10/21 Facet Joint Injection X-Ray (Signed) Justin Ivy - 11/17/21 Injection Lumbar, Sacrum (Signed) Justin Ivy - 08/04/21 Lumbar Spine X-Ray (Signed) Christopher Villafuerte - 07/22/21 Telemetry Strips 06/25/21 Abdomen/Pelvis CT (Signed) Tano Vicente - 06/24/[address] (Signed) Papi Terrazas - 08/21/20 Chest X-Ray (Signed) Justin Ivy - 07/25/20 [facility] [address] CT Scan Report Signed Patient: Jackie Javed MR#: [id number] : 1950 Acct:[id number] Age/Sex: 73 / F Date of Service: 09/11/23 Loc: ED Accession Number: [id number] Procedure: CT head/brain wo con Ordering Provider: Lita Urbina D.O. PROCEDURE: CT HEAD/BRAIN WO CON INDICATIONS: fall, hit head on eliquis, right shoulder/pelvic/hip pain TECHNIQUE: Noncontrast 4.5 mm thick angled axial sections acquired from the foramen magnum to the vertex, with coronal and sagittal reformats. For radiation dose reduction, the following was used: automated exposure control, adjustment of mA and/or kV according to patient size. COMPARISON: [facility], CT, CT HEAD/BRAIN WO CON, 06/16/2022, 9:18. FINDINGS: Image quality: Excellent. CSF spaces: Basal cisterns are patent. No extra-axial fluid collections. Ventricles are normal in size and shape. Brain: Mild parenchymal volume loss. Mild periventricular white matter hypoattenuation consistent with chronic microvascular ischemic disease. No midline shift. No intracranial masses or hemorrhage. Moy-white matter interface is normal. Skull and face: Calvarium and visualized facial bones are intact, without suspicious lesions. Sinuses: Visualized sinuses and mastoids are clear. IMPRESSION: No acute intracranial pathology. Dictated by: Earle Terrazas M.D. on 09/11/2023 at 9:28 Approved by: Earle Terrazas M.D. on 09/11/2023 at 9:31 CT - cervical spine: Radiologist's Impression: Jackie Javed??73??F??1950 ? Allergy/Adv: lisinopril, metformin (More??) Close Cervical Spine CT (Signed) Earle Terrazas - 09/11/23 Pelvis X-Ray (Signed) Earle Terrazas - 09/11/[address] (Signed) Earle Terrazas - 09/11/23 Chest X-Ray (Signed) Earle Terrazas - 09/11/23 Abdomen/Pelvis CT (Signed) Yan Hay - 03/13/23 Lumbar Spine MRI (Signed) Yan Hay - 03/12/23 Mammogram Screening (Signed) Unique Caceres - 03/05/23 Chest CTA (Signed) Leopoldo Hooper - 01/24/23 Chest X-Ray (Signed) Tano Baez - 01/24/23 Chest X-Ray (Signed) Yan Hay - 01/23/23 Brain MRI (Signed) Marcelle Manuel - 10/12/22 Abdomen Ultrasound (Signed) Lolis Valdez - 10/12/[address] (Signed) Jose M Mariee - 06/16/[address] (Signed) Vu Aldana - 06/15/[address] (Signed) Justin Ivy - 05/30/22 Bone Densitometry 05/24/22 Vascular Ultrasound (Signed) Elizabeth Parker - 03/26/22 Vascular Ultrasound (Signed) Justin Ivy - 02/28/22 Chest X-Ray (Signed) Marcelle Manuel - 02/28/22 Foot X-Ray (Signed) Marcelle Manuel - 02/28/22 Chest X-Ray (Signed) Lolis Valdez - 12/17/[address] (Signed) Papi Terrazas - 12/10/21 Abdomen/Pelvis CT (Signed) Delgado Lazored - 12/10/21 Chest X-Ray (Signed) CliftonLee - 12/10/21 Facet Joint Injection X-Ray (Signed) [place] MeadowsJustin jain - 11/17/21 Injection Lumbar, Sacrum (Signed) CataJustin jain - 08/04/21 Lumbar Spine X-Ray (Signed) Louis Villafuerteddie - 07/22/21 Telemetry Strips 06/25/21 Abdomen/Pelvis CT (Signed) Tano Vicente - 06/24/[address] (Signed) Papi Terrazas - 08/21/20 Chest X-Ray (Signed) Justin Ivy - 07/25/20 [place] [address] CT Scan Report Signed Patient: Jackie Javed MR#: [id number] : 1950 Acct:[id number] Age/Sex: 73 / F Date of Service: 09/11/23 Loc: ED Accession Number: [id number] Procedure: CT cervical spine wo con Ordering Provider: Lita Urbina D.O. PROCEDURE: CT CERVICAL SPINE WO CON INDICATIONS: fall, hit head on eliquis, right shoulder/pelvic/hip pain TECHNIQUE: Noncontrast 3 mm thick sections acquired from the skull base to the T4 level. Sagittal and coronal reformats were then constructed. For radiation dose reduction, the following was used: automated exposure control, adjustment of mA and/or kV according to patient size. COMPARISON: None. FINDINGS: Image quality: Excellent. Bones: No fractures or dislocations. Visualized superior ribs are intact. Soft tissues: Prevertebral soft tissues are normal in thickness. No paravertebral hematomas. No apical pneumothoraces. IMPRESSION: No fracture or acute osseous finding. Dictated by: Earle Terrazas M.D. on 09/11/2023 at 9:31 Approved by: Earle Terrazas M.D. on 09/11/2023 at 9:33 Chest x-ray: Radiologist's Impression: [address] [address] XRay Report Signed Patient: Jackie Javed MR#: [id number] : 1950 Acct:[id number] Age/Sex: 73 / F Date of Service: 09/11/23 Loc: ED Accession Number: [id number] Procedure: XR chest 1V Ordering Provider: Lita Urbina D.O. PROCEDURE: XR CHEST 1V INDICATIONS: fall, hit head on eliquis, right shoulder/pelvic/hip pain TECHNIQUE: One view of the chest was acquired. COMPARISON: [facility], , XR CHEST 1V, 01/24/2023, 14:49. FINDINGS: Surgical changes and devices: None. Lungs and pleura: Lungs are clear. No pleural effusions or pneumothorax. Mediastinum: Mediastinal contours appear normal. Heart size is normal. Bones and chest wall: No suspicious bony lesions. Overlying soft tissues appear unremarkable. IMPRESSION: No acute cardiopulmonary abnormality is seen. Dictated by: Earle Terrazas M.D. on 09/11/2023 at 9:48 Approved by: Earle Terrazas M.D. on 09/11/2023 at 9:50 pelvic xray: Radiologist's Impression: [address] [address] XRay Report? Signed Patient: Jackie Javed MR#: [id number] : 1950 Acct:[id number] Age/Sex: 73 / F Date of Service: 09/11/23 Loc: ED Accession Number: [id number]? ? Procedure: XR pelvis 1-2V Ordering Provider: Lita Urbina D.O. PROCEDURE:? XR PELVIS 1-2V ? INDICATIONS:? fall, hit head on eliquis, right shoulder/pelvic/hip pain ? TECHNIQUE:? 1 view(s) of the pelvis acquired.?? ? COMPARISON:? None. ? FINDINGS:?? ? Bones:? No fractures or dislocations.? No suspicious bony lesions.? Iliac in trochanteric? enthesophytes. ? Soft tissues:? Visualized bowel gas pattern is normal.? No suspicious soft tissue? calcifications.? IMPRESSION: ? No acute bony abnormality. ? ? ? Dictated by: Earle Terrazas M.D. on 09/11/2023 at 9:50? ? ? Approved by: Earle Terrazas M.D. on 09/11/2023 at 9:52? [facility] Narrative Medical decision making narrative: 73-year-old female with fall 2 days prior patient is on Eliquis, no other red flag symptoms but head CT and C-spine were obtained based on extremity of age and anticoagulation patient does have a small hematoma on her posterior scalp. Patient has some tenderness over the right scapular region about full range of motion. Chest x-ray was included, patient on a pelvic x-ray she does not have any bony tenderness of her low back and her pain is more in the hip and pelvic region. She has normal range of motion and normal ambulation. Imaging shows no acute intracranial bleed, fracture change on head CT or C-spine CT. Chest x-ray pelvic x-ray show no fracture or other major changes. Received [place] p.o. x2. Patient states she is had some improvement in pain. Reviewed findings with patient she feels comfortable with discharge home, Tylenol/ibuprofen with very narcotic prescription. Discussed return precautions. Signs and symptoms to watch for. Patient and family at bedside expressed understanding. Discharge Plan Departure Patient Disposition: Home Clinical Impression: Right-sided thoracic back pain, Bilateral hip pain, Fall Instructions: How to Prevent Falls Activity Restrictions/Additional Instructions: Please follow-up with your physician for recheck if symptoms are not improving over the next week. Your imaging does not show any breaks or fractures or bleeding in your brain. You may take Tylenol up to a 1000 mg every 6 hours as needed and/or to 600 mg every 6 hours. Inadequate for pain you can take [place] 1 tablet every 6 hours as needed for pain. This is only a short term prescription. Any refills must be provided by your primary care. This medication can make you sleepy do not drive, perform hazardous activities or make any major decisions while taking it. This medication will make you constipated please take a stool softener once to twice daily until stools are soft and regular. Pres[facility] sent [facility] in [place]. Please return for fevers, severe headaches, rapidly worsening pain new numbness, tingling or weakness, loss of bowel or bladder control, inability to ambulate or move, persistent vomiting or other new or concerning changes Prescriptions: New hydrocodone-acetaminophen 5-325 mg tablet 1 tab PO QID PRN (Reason: pain) Qty: 10 0RF No Action aspirin 81 mg Tablet,Chewable 81 mg PO QAM ondansetron 4 mg tablet,disintegrating 4 mg PO Q8H PRN (Reason: nausea and vomiting) Qty: 10 0RF furosemide 20 mg Tablet 10 mg PO QAM abpomesfhj-isinqlrzjcjoh-bvzq [Fioricet] 50-300-40 mg capsule 1 cap PO Q6H PRN (Reason: pain) Qty: 10 0RF ondansetron 4 mg tablet,disintegrating 4 mg PO Q6-8H PRN (Reason: nausea and vomiting) Qty: 10 0RF rizatriptan [Maxalt] 10 mg tablet 10 mg PO Q2-4H PRN (Reason: migraine headache) Qty: 10 0RF Rx Instructions: do not exceed 3 doses per 24 hrs furosemide [Lasix] 20 mg tablet 20 mg PO DAILY Qty: 3 0RF multivitamin Tablet 1 tab PO DAILY Qty: 0 atenolol 25 mg Tablet 25 mg PO DAILY levothyroxine [Synthroid] 150 mcg Tablet 150 mcg PO DAILY ezetimibe 10 mg Tablet 10 mg PO DAILY omega-3 fatty acids-vitamin E 1,000 mg Capsule 1 cap PO DAILY tramadol 50 mg tablet 50 mg PO Q8H PRN (Reason: pain) Qty: 14 0RF prednisone 20 mg tablet 40 mg PO DAILY Qty: 10 0RF rimegepant 75 mg tablet,disintegrating 75 mg PO Q OTHER DAY PRN (Reason: migraine headache) Qty: 10 0RF nortriptyline 10 mg capsule 10 mg PO BEDTIME Qty: 30 0RF metoclopramide HCl [Reglan] 10 mg tablet 10 mg PO Q6H PRN (Reason: nausea and vomiting) Qty: 14 0RF lorazepam [Ativan] 0.5 mg tablet 0.5 mg PO BID PRN (Reason: nausea and vomiting) Qty: 10 0RF hydrocodone-acetaminophen 5-325 mg tablet 1 tab PO Q4-6H PRN (Reason: pain) Qty: 10 0RF ketorolac 10 mg tablet 10 mg PO Q6H PRN (Reason: pain) Qty: 14 0RF lidocaine [Lidoderm] 5 % adhesive patch,medicated 1 patch TOP DAILY Qty: 15 0RF Rx Instructions: leave on most painful area for 12 hrs diazepam [Valium] 5 mg tablet 5 mg PO BID-QID PRN (Reason: muscle spasm) Qty: 10 0RF isosorbide mononitrate 30 mg tablet extended release 24 hr 30 mg PO DAILY Qty: 30 0RF hydrocodone-acetaminophen 5-325 mg tablet 1 tab PO Q4-6H PRN (Reason: pain) Qty: 10 0RF methylprednisolone [Medrol (Jabier)] 4 mg tablets,dose pack See Rx Instructions .ROUTE .COMPLEX Qty: 21 0RF Rx Instructions: orally per package directions diazepam [Valium] 5 mg tablet 5 mg PO BID-QID PRN (Reason: muscle spasm) Qty: 10 0RF potassium chloride 10 mEq capsule, extended release 20 meq PO DAILY cholecalciferol (vitamin D3) 50 mcg (2,000 unit) capsule 50 mcg PO DAILY Eliquis 5 mg tablet 5 mg PO BID Referrals: Yuli Lang PA-C [Primary Care Provider] - Stand Alone Forms: Patient Portal/API
--- NOTE | 2023-09-11 10:03 | DI.RAD.S_ITS ---
PROCEDURE: XR PELVIS 1-2V INDICATIONS: fall, hit head on eliquis, right shoulder/pelvic/hip pain TECHNIQUE: 1 view(s) of the pelvis acquired. COMPARISON: None. FINDINGS: Bones: No fractures or dislocations. No suspicious bony lesions. Iliac in trochanteric enthesophytes. Soft tissues: Visualized bowel gas pattern is normal. No suspicious soft tissue calcifications. IMPRESSION: No acute bony abnormality. Dictated by: Earle Terrazas M.D. on 09/11/2023 at 9:50 Approved by: Earle Terrazas M.D. on 09/11/2023 at 9:52
--- NOTE | 2023-09-11 10:03 | DI.RAD.S_ITS ---
PROCEDURE: XR CHEST 1V INDICATIONS: fall, hit head on eliquis, right shoulder/pelvic/hip pain TECHNIQUE: One view of the chest was acquired. COMPARISON: [facility], CR, XR CHEST 1V, 01/24/2023, 14:49. FINDINGS: Surgical changes and devices: None. Lungs and pleura: Lungs are clear. No pleural effusions or pneumothorax. Mediastinum: Mediastinal contours appear normal. Heart size is normal. Bones and chest wall: No suspicious bony lesions. Overlying soft tissues appear unremarkable. IMPRESSION: No acute cardiopulmonary abnormality is seen. Dictated by: Earle Terrazas M.D. on 09/11/2023 at 9:48 Approved by: Earle Terrazas M.D. on 09/11/2023 at 9:50
--- NOTE | 2023-09-11 10:03 | DI.CT.S_ITS ---
PROCEDURE: CT HEAD/BRAIN WO CON INDICATIONS: fall, hit head on eliquis, right shoulder/pelvic/hip pain TECHNIQUE: Noncontrast 4.5 mm thick angled axial sections acquired from the foramen magnum to the vertex, with coronal and sagittal reformats. For radiation dose reduction, the following was used: automated exposure control, adjustment of mA and/or kV according to patient size. COMPARISON: [facility], CT, CT HEAD/BRAIN WO CON, 06/16/2022, 9:18. FINDINGS: Image quality: Excellent. CSF spaces: Basal cisterns are patent. No extra-axial fluid collections. Ventricles are normal in size and shape. Brain: Mild parenchymal volume loss. Mild periventricular white matter hypoattenuation consistent with chronic microvascular ischemic disease. No midline shift. No intracranial masses or hemorrhage. Moy-white matter interface is normal. Skull and face: Calvarium and visualized facial bones are intact, without suspicious lesions. Sinuses: Visualized sinuses and mastoids are clear. IMPRESSION: No acute intracranial pathology. Dictated by: Earle Terrazas M.D. on 09/11/2023 at 9:28 Approved by: Earle Terrazas M.D. on 09/11/2023 at 9:31
[2023-09-11] MEDS: HYDROCODONE/ACET 5/325 TABLET 2 TAB PO (10:10)
[2023-09-11] MEDS: ONDANSETRON 4 MG ODT SL (10:10)
--- NOTE | 2023-09-11 10:22 | DI.CT.S_ITS ---
PROCEDURE: CT CERVICAL SPINE WO CON INDICATIONS: fall, hit head on eliquis, right shoulder/pelvic/hip pain TECHNIQUE: Noncontrast 3 mm thick sections acquired from the skull base to the T4 level. Sagittal and coronal reformats were then constructed. For radiation dose reduction, the following was used: automated exposure control, adjustment of mA and/or kV according to patient size. COMPARISON: None. FINDINGS: Image quality: Excellent. Bones: No fractures or dislocations. Visualized superior ribs are intact. Soft tissues: Prevertebral soft tissues are normal in thickness. No paravertebral hematomas. No apical pneumothoraces. IMPRESSION: No fracture or acute osseous finding. Dictated by: Earle Terrazas M.D. on 09/11/2023 at 9:31 Approved by: Earle Terrazas M.D. on 09/11/2023 at 9:33
== END 2023-09-11 11:35 | disposition home or self-care (01) ==
PROVIDERS: Emergency Provider Emergency Medicine; PCP Physician Assistant
DX: M25.511 Pain in right shoulder (principal); M54.6 Pain in thoracic spine; M25.552 Pain in left hip; M25.551 Pain in right hip; W01.198A Fall on same level from slipping, tripping and stumbling with subsequent striking against other object, initial encounter; Z79.01 Long term (current) use of anticoagulants; S00.03XA Contusion of scalp, initial encounter
CPT/HCPCS: 70450; 71045; 72125; 72170; 99283; 99284

== ENCOUNTER 2023-09-13 13:15 | Emergency (ER) | payer MEDICARE, OTHER, SELFPAY ==
[2021-06-25 17:33] VITALS: BMI 28.1
[2023-09-13 13:25] VITALS: BP 156/72; PULSE 89; RESP 16; TEMP 36.7; O2SAT 97; BMI 25.0
[2023-09-13 14:39] VITALS: BP 124/64; PULSE 67; RESP 18; O2SAT 97
--- NOTE | 2023-09-13 17:20 | ED.RECABL ---
HPI - Recheck/Abnormal Lab/Rx <Real Roa PA-C - Last Filed: 09/13/23 17:36> General Chief Complaint: Recheck/Abnormal Lab/Rx Stated Complaint: meds hurting stomach, pain due to fall injury Time Seen by Provider: 09/13/23 13:31 Source: patient Mode of arrival: Ambulatory History of Present Illness HPI narrative: 73-year-old female presents to the ED for continued pain from a fall that she suffered 4 days ago in the bathroom. Patient fell in the bathroom 4 days ago, had some bruising on her hips and shoulders, was evaluated in the ED. imaging was performed with no acute findings, patient was discharged home with hydrocodone with acetaminophen for pain control. Patient returns to the ED today, states that medication has not done anything to control her pain, is upsetting her stomach. Patient denies any new trauma or injuries. Patient denies numbness, tingling, weakness. Patient endorses full range of movement. Related Data Home Medications Medication Instructions Recorded Confirmed aspirin 81 mg chewable tablet 81 mg PO QAM 07/26/20 12/23/21 atenolol 25 mg tablet 25 mg PO DAILY 06/25/21 12/23/21 ezetimibe 10 mg tablet 10 mg PO DAILY 06/25/21 12/23/21 levothyroxine 150 mcg tablet 150 mcg PO DAILY 06/25/21 12/23/21 (Synthroid) multivitamin 1 tab PO DAILY ##0 06/25/21 12/23/21 omega-3 fatty acids-vitamin E 1 cap PO DAILY 06/25/21 12/23/21 1,000 mg capsule furosemide 20 mg tablet 10 mg PO QAM 07/09/21 12/23/21 apixaban 5 mg tablet (Eliquis) 5 mg PO BID 07/22/21 12/23/21 cholecalciferol (vitamin D3) 50 50 mcg PO DAILY 07/22/21 12/23/21 mcg (2,000 unit) capsule potassium chloride 10 mEq 20 meq PO DAILY 07/22/21 12/23/21 capsule,extended release Previous Rx's Medication Instructions Recorded ondansetron 4 mg disintegrating 4 mg PO Q8H PRN nausea and 06/24/21 tablet vomiting #10 tabs tramadol 50 mg tablet 50 mg PO Q8H PRN pain #14 tabs 02/28/22 [id number]-[id number] 1 cap PO Q6H PRN pain #10 caps 05/30/22 50 mg-300 mg-40 mg capsule (Fioricet) ondansetron 4 mg disintegrating 4 mg PO Q6-8H PRN nausea and 06/15/22 tablet vomiting #10 tabs rizatriptan 10 mg tablet (Maxalt) 10 mg PO Q2-4H PRN migraine 06/16/22 headache #10 tabs nortriptyline 10 mg capsule 10 mg PO BEDTIME #30 caps 06/17/22 prednisone 20 mg tablet 40 mg (2 x 20 mg) PO DAILY #10 tabs 06/17/22 rimegepant 75 mg disintegrating 75 mg PO Q OTHER DAY PRN migraine 06/17/22 tablet headache #10 tabs metoclopramide HCl 10 mg tablet 10 mg PO Q6H PRN nausea and 06/18/22 (Reglan) vomiting #14 tabs lorazepam 0.5 mg tablet (Ativan) 0.5 mg PO BID PRN nausea and 06/19/22 vomiting #10 tabs diazepam 5 mg tablet (Valium) 5 mg PO BID-QID PRN muscle spasm 08/08/22 #10 tabs hydrocodone 5 mg-acetaminophen 325 1 tab PO Q4-6H PRN pain #10 tabs 08/08/22 mg tablet ketorolac 10 mg tablet 10 mg PO Q6H PRN pain #14 tabs 08/08/22 lidocaine 5 % topical patch 1 patch topical DAILY #15 ea 08/08/22 (Lidoderm) furosemide 20 mg tablet (Lasix) 20 mg PO DAILY #3 tabs 01/23/23 isosorbide mononitrate 30 mg 30 mg PO DAILY #30 tabs 01/24/23 tablet,extended release 24 hr diazepam 5 mg tablet (Valium) 5 mg PO BID-QID PRN muscle spasm 03/12/23 #10 tabs hydrocodone 5 mg-acetaminophen 325 1 tab PO Q4-6H PRN pain #10 tabs 03/12/23 mg tablet methylprednisolone 4 mg tablets in See Rx Instructions PO .COMPLEX 03/12/23 a dose pack (Medrol (Jabier)) #21 ea hydrocodone 5 mg-acetaminophen 325 1 tab PO QID PRN pain #10 tabs 09/11/23 mg tablet ondansetron 4 mg disintegrating 4 mg PO Q8H PRN nausea and 09/17/23 tablet vomiting #10 tabs metoclopramide HCl 10 mg tablet 10 mg PO Q6H PRN nausea and 09/19/23 (Reglan) vomiting #14 tabs morphine 15 mg immediate release 15 mg PO Q6H PRN pain #10 tabs 09/19/23 tablet morphine 15 mg immediate release 15 mg PO Q6H PRN pain #15 tabs 09/19/23 tablet naloxone 4 mg/actuation nasal 4 mg intranasal Q2M #2 ea 09/19/23 spray (Narcan) Allergies Allergy/AdvReac Type Severity Reaction Status Date / Time lisinopril Allergy Severe Anaphylaxis Verified 09/19/23 12:43 metformin AdvReac Vomiting Verified 09/19/23 12:43 Review of Systems <Real Roa PA-C - Last Filed: 09/13/23 17:36> Constitutional Constitutional: Denies chills, Denies fatigue, Denies fever(s), Denies frequent falls, Denies lethargy and Denies weakness Eyes Eyes: Denies change in vision, Denies eye discharge, Denies irritation and Denies loss of vision ENT Ears, Nose, Mouth, and Throat: Denies change in voice, Denies dizziness, Denies neck pain, Denies sore throat and Denies throat swelling Cardiovascular Cardiovascular: Denies chest pain, Denies irregular heart rhythm, Denies lightheadedness, Denies palpitations, Denies dyspnea, Denies dyspnea on exertion and Denies orthopnea Respiratory Respiratory: Denies cough, Denies dyspnea, Denies dyspnea on exertion and Denies wheezing Gastrointestinal Gastrointestinal: Denies abdominal pain, Denies change in bowel habits, Denies diarrhea, Denies nausea and Denies vomiting Musculoskeletal Musculoskeletal: Denies neck pain and Denies numbness Comments: Bilateral Hip and shoulder pain Integumentary/Breasts Skin/Breast: Denies pruritus, Denies erythema, Denies rash and Denies wounds Neurologic Neurologic: Denies behavioral changes, Denies confusion, Denies dizziness, Denies frequent falls, Denies loss of vision, Denies numbness and Denies weakness Psychiatric Psychiatric: Denies anxiety, Denies behavioral changes, Denies confusion, Denies depression, Denies homicidal ideation and Denies suicidal ideation Endocrine Endocrine: Denies fatigue, Denies flushing and Denies palpitations Hematologic/Lymphatic Hematologic/Lymphatic: Denies easy bruising Allergic/Immunologic Allergic/Immunologic: Denies urticaria, Denies throat swelling and Denies wheezing Patient History <Real Roa PA-C - Last Filed: 09/13/23 17:36> Medical History UTI (urinary tract infection) Facet arthropathy, lumbar Atrial fibrillation Lumbar radiculopathy Tinnitus Nose fracture (~06/29/21) HLD (hyperlipidemia) Heart murmur Chronic pancreatitis Depression Chronic back pain Breast cancer Migraine headache Hypothyroidism Hypertension Surgical History Hx of tonsillectomy History of colonoscopy Hx of oophorectomy History of hysterectomy Hx of breast surgery Hx of cholecystectomy Family History Father Brain tumor Congestive heart failure Mother Hypertension Stroke Grandfather Stroke Social History household members: spouse Smoking Status: Former smoker alcohol intake: current Smoking Status: Former smoker alcohol intake frequency: other Alcohol type: wine Substance Use Type: does not use Exam <Real Roa PA-C - Last Filed: 09/13/23 17:36> Narrative Exam Narrative: Const General:?cooperative, healthy appearing and comfortable [facility] Head:?normal to inspection Ears:?hearing grossly normal bilaterally Nose:?external nose normal Face and sinus:?normal facial exam and sinuses nontender Mouth:?oral mucosae normal Throat:?posterior oropharynx normal Eyes General:?appearance normal, both eyes and all related structures Neck Neck:?normal visual inspection and no lymphadenopathy noted Resp Effort & Inspection:?normal respiratory effort Auscultation:?clear to auscultation bilaterally Cardio Rate:?regular rate Rhythm:?regular rhythm Musculoskeletal There is some yellowing bruising on bilateral hips and shoulder consistent with a fall from 4 days ago. There is full range of motion. Strength and sensation is intact. Gait is normal. Patient is neurovascularly intact. Neuro General:?patient alert, patient awake and patient oriented x3 Initial Vital Signs Initial Vital Signs: Vital Signs Temperature 98.1 F 09/13/23 13:25 Pulse Rate 89 12/12/23 13:25 Respiratory Rate 16 09/13/23 13:25 Blood Pressure 156/72 H 09/13/23 13:25 Pulse Oximetry 97 09/13/23 13:25 Oxygen Delivery Method Room Air 09/13/23 13:25 <Lita Urbina DO - Last Filed: 09/23/23 07:31> Initial Vital Signs Initial Vital Signs: Vital Signs Temperature 98.1 F 09/13/23 13:25 Pulse Rate 89 09/13/23 13:25 Respiratory Rate 16 09/13/23 13:25 Blood Pressure 156/72 H 09/13/23 13:25 Pulse Oximetry 97 09/13/23 13:25 Oxygen Delivery Method Room Air 09/13/23 13:25 Course <Real Roa PA-C - Last Filed: 09/13/23 17:36> Vital Signs Vital signs: Vital Signs - 8 hr 09/13/23 13:25 09/13/23 14:39 Temperature 98.1 F Pulse Rate 89 67 Respiratory Rate 16 18 Blood Pressure 156/72 H 124/64 Pulse Oximetry 97 97 Oxygen Delivery Method Room Air Room Air <Lita Urbina DO - Last Filed: 09/23/23 07:31> Vital Signs Vital signs: Vital Signs - 8 hr 09/13/23 13:25 09/13/23 14:39 Temperature 98.1 F Pulse Rate 89 67 Respiratory Rate 16 18 Blood Pressure 156/72 H 124/64 Pulse Oximetry 97 97 Oxygen Delivery Method Room Air Room Air MDM - Recheck/Abnormal Lab/Rx <Real Roa PA-C - Last Filed: 09/13/23 17:36> MDM Narrative Medical decision making narrative: 73-year-old female presents to the ED for continued pain from a fall that she suffered 4 days ago in the bathroom. History and physical exam is reassuring for no new injuries. Patient is walking comfortably, there is full range of motion. Patient is neurovascularly intact. Counseled patient to continue taking Tylenol, ibuprofen for pain control since hydrocodone has not been helpful. Patient has been receiving tramadol from her PCP per Rx records. Advised patient to follow-up with her PCP for any further pain control needs, since we can only do short-term medications from the emergency room. Patient agreed to follow-up with her PCP. ED return precautions were discussed with patient. Patient verbalized understanding. Medical records reviewed: Yes Discharge Plan Departure Patient Disposition: Home Clinical Impression: Hip pain Qualifiers: Laterality: bilateral Qualified Code(s): M25.551 - Pain in right hip Instructions: How to Prevent Falls Activity Restrictions/Additional Instructions: You were evaluated in the ED today for some hip and back pain. It appears that your pain is from musculoskeletal sprains/strains from the fall. At this time, it would be most advisable for you to take Tylenol and ibuprofen for the pain and inflammation since the hydrocodone was not effective for pain control. Please follow-up with your PCP as soon as possible for further evaluation and treatment. Return to the ED if you have worsening symptoms, numbness, tingling, weakness. Prescriptions: No Action aspirin 81 mg Tablet,Chewable 81 mg PO QAM ondansetron 4 mg tablet,disintegrating 4 mg PO Q8H PRN (Reason: nausea and vomiting) Qty: 10 0RF furosemide 20 mg Tablet 10 mg PO QAM [id number] [Fioricet] 50-300-40 mg capsule 1 cap PO Q6H PRN (Reason: pain) Qty: 10 0RF ondansetron 4 mg tablet,disintegrating 4 mg PO Q6-8H PRN (Reason: nausea and vomiting) Qty: 10 0RF rizatriptan [Maxalt] 10 mg tablet 10 mg PO Q2-4H PRN (Reason: migraine headache) Qty: 10 0RF Rx Instructions: do not exceed 3 doses per 24 hrs furosemide [Lasix] 20 mg tablet 20 mg PO DAILY Qty: 3 0RF ondansetron 4 mg tablet,disintegrating 4 mg PO Q8H PRN (Reason: nausea and vomiting) Qty: 10 0RF multivitamin Tablet 1 tab PO DAILY Qty: 0 atenolol 25 mg Tablet 25 mg PO DAILY levothyroxine [Synthroid] 150 mcg Tablet 150 mcg PO DAILY ezetimibe 10 mg Tablet 10 mg PO DAILY omega-3 fatty acids-vitamin E 1,000 mg Capsule 1 cap PO DAILY tramadol 50 mg tablet 50 mg PO Q8H PRN (Reason: pain) Qty: 14 0RF prednisone 20 mg tablet 40 mg PO DAILY Qty: 10 0RF rimegepant 75 mg tablet,disintegrating 75 mg PO Q OTHER DAY PRN (Reason: migraine headache) Qty: 10 0RF nortriptyline 10 mg capsule 10 mg PO BEDTIME Qty: 30 0RF metoclopramide HCl [Reglan] 10 mg tablet 10 mg PO Q6H PRN (Reason: nausea and vomiting) Qty: 14 0RF lorazepam [Ativan] 0.5 mg tablet 0.5 mg PO BID PRN (Reason: nausea and vomiting) Qty: 10 0RF hydrocodone-acetaminophen 5-325 mg tablet 1 tab PO Q4-6H PRN (Reason: pain) Qty: 10 0RF ketorolac 10 mg tablet 10 mg PO Q6H PRN (Reason: pain) Qty: 14 0RF lidocaine [Lidoderm] 5 % adhesive patch,medicated 1 patch TOP DAILY Qty: 15 0RF Rx Instructions: leave on most painful area for 12 hrs diazepam [Valium] 5 mg tablet 5 mg PO BID-QID PRN (Reason: muscle spasm) Qty: 10 0RF isosorbide mononitrate 30 mg tablet extended release 24 hr 30 mg PO DAILY Qty: 30 0RF hydrocodone-acetaminophen 5-325 mg tablet 1 tab PO Q4-6H PRN (Reason: pain) Qty: 10 0RF methylprednisolone [Medrol (Jabier)] 4 mg tablets,dose pack See Rx Instructions .ROUTE .COMPLEX Qty: 21 0RF Rx Instructions: orally per package directions diazepam [Valium] 5 mg tablet 5 mg PO BID-QID PRN (Reason: muscle spasm) Qty: 10 0RF hydrocodone-acetaminophen 5-325 mg tablet 1 tab PO QID PRN (Reason: pain) Qty: 10 0RF morphine 15 mg tablet 15 mg PO Q6H PRN (Reason: pain) Qty: 10 0RF naloxone [Narcan] 4 mg/actuation spray,non-aerosol 4 mg intranasal Q2M Qty: 2 0RF Rx Instructions: spray 1 dose into ONE nostril; alternate nostrils w each dose until help arrives metoclopramide HCl [Reglan] 10 mg tablet 10 mg PO Q6H PRN (Reason: nausea and vomiting) Qty: 14 0RF morphine 15 mg tablet 15 mg PO Q6H PRN (Reason: pain) Qty: 15 0RF potassium chloride 10 mEq capsule, extended release 20 meq PO DAILY cholecalciferol (vitamin D3) 50 mcg (2,000 unit) capsule 50 mcg PO DAILY Eliquis 5 mg tablet 5 mg PO BID Referrals: Yuli Lang PA-C [Primary Care Provider] - Stand Alone Forms: Patient Portal/API ED Sign-out <Lita Urbina DO - Last Filed: 09/23/23 07:31> Cosign ED Attending Cosignature Attestation: I was immediately available in the department for consultation.
== END 2023-09-13 14:43 | disposition home or self-care (01) ==
PROVIDERS: Emergency Provider Student in an Organized Health Care Education/Training Program; PCP Physician Assistant
DX: M25.551 Pain in right hip (principal); M25.552 Pain in left hip
CPT/HCPCS: 99281

== ENCOUNTER 2023-09-17 15:00 | Emergency (ER) | payer MEDICARE, OTHER, SELFPAY ==
[2021-06-25 17:33] VITALS: BMI 28.1
[2023-09-17 15:14] VITALS: BP 160/79; PULSE 58; RESP 16; TEMP 36.7; O2SAT 99; BMI 25.0
[2023-09-17 15:37] LABS: Add Manual Diff / Slide Review NO; Basophils Absolute Auto 100 /uL (0-100); Basophils Percent Auto 0.7 % (0-2); Eosinophils Absolute Auto 100 /uL (0-450); Eosinophils Percent Auto 1.6 % (2-4); Hematocrit 46.2 % (36-46); Hemoglobin 15.3 g/dL (12.0-16.0); Lymphocytes Absolute Auto 2000 /uL (1100-4500); Lymphocytes Percent Auto 24.2 % (25-40); Mean Corpuscular HGB Conc 33.2 % (30-36); Mean Corpuscular Hemoglobin 31.6 PG (26-34); Mean Corpuscular Volume 95.1 fL (80-100); Monocytes Absolute Auto 900 /uL (0-900); Monocytes Percent Auto 10.4 % (3-14); Neutrophils Absolute Auto 5200 /uL (1500-7000); Neutrophils Percent Auto 63.1 % (50-75); Platelet Count 226 X10^3/uL (150-400); Red Blood Cell Count 4.85 X10^6/uL (4.0-5.2); Red Cell Distribution Width 14.3 % (11.6-14.8); White Blood Cell Count 8.2 X10^3/uL (4.5-11.0)
[2023-09-17 15:48] LABS: Alanine Aminotransferase 46 IU/L (<35); Albumin Globulin Ratio 1.4 (1.0-2.8); Alkaline Phosphatase 85 U/L (38-126); Aspartate Aminotransferase 48 IU/L (14-36); BUN Creatinine Ratio 15.8 (6-22); Bilirubin Total 0.5 mg/dL (0.2-1.3); Blood Urea Nitrogen 16 mg/dL (7-17); Calcium 9.8 mg/dL (8.4-10.2); Carbon Dioxide 21 mmol/L (22-32); Chloride 107 mmol/L (98-107); Estimated Glomerular Filt Rate 58 mL/min (>60); Globulin 2.8 g/dL (1.7-4.1); Glucose 124 mg/dL (80-110); HEMOLYSIS < 15 (0-50); Lipase 72 U/L (23-300); Sodium 136 mmol/L (137-145); Total Protein 6.8 g/dL (6.3-8.2)
--- NOTE | 2023-09-17 15:55 | PC.NURSE ---
Pt reports that she has been having right upper quadrant pain that radiates to her right shoulder and back. Pt describes pain as stabbing and throbbing and has pain when area is palpated and states she has 8/10 pain. Pt reports that she had pancreatitis 4 years ago and this feels similar. Pt denies any cp, sob, fever. A&Ox4. DOG WALKER intact.
--- NOTE | 2023-09-17 15:56 | DI.US.S_ITS ---
PROCEDURE: US ABDOMEN LIMITED INDICATIONS: Right upper quadrant pain TECHNIQUE: Real-time focused scanning was performed of the abdomen, with image documentation. COMPARISON: [facility], CT, CT ABDOMEN PELVIS W CON, 03/13/2023, 16:00. [facility], US, US ABDOMEN LIMITED, 10/12/2022, 16:29. FINDINGS: The liver demonstrates mildly enlarged size. The liver demonstrates generalized mildly increased echogenicity. This decreases ultrasound sensitivity for detection of hepatic masses. Status post cholecystectomy. There is no biliary dilatation, the common bile duct measures 4 mm. No significant pancreatic abnormality is seen on these images. IMPRESSION: Status post cholecystectomy, without biliary dilatation. Dictated by: Justin Ivy M.D. on 09/17/2023 at 16:29 Approved by: Justin Ivy M.D. on 09/17/2023 at 16:32
--- NOTE | 2023-09-17 16:45 | ED.ABDPAIN ---
HPI - Abdominal Pain General Chief Complaint: Abdominal Pain Stated Complaint: pain under Rside of rib/nausea T-2 Time Seen by Provider: 09/17/23 15:56 Source: patient and family Mode of arrival: Family Vehicle History of Present Illness HPI narrative: Patient 73-year-old female history of atrial fibrillation on with migraines hypertension hypothyroidism presenting today with 2 days of right upper quadrant pain she is a history of a cholecystectomy. She feels like she is pain all along her epigastric region and in her right upper quadrant. She feels nauseous he is had decreased appetite only eating once a day. No real vomiting. No changes in bowel habits. No fever. No chest pain palpitations or shortness of breath. She is not yet taken anything for pain. Related Data Home Medications Medication Instructions Recorded Confirmed aspirin 81 mg chewable tablet 81 mg PO QAM 07/26/20 12/23/21 atenolol 25 mg tablet 25 mg PO DAILY 06/25/21 12/23/21 ezetimibe 10 mg tablet 10 mg PO DAILY 06/25/21 12/23/21 levothyroxine 150 mcg tablet 150 mcg PO DAILY 06/25/21 12/23/21 (Synthroid) multivitamin 1 tab PO DAILY ##0 06/25/21 12/23/21 omega-3 fatty acids-vitamin E 1 cap PO DAILY 06/25/21 12/23/21 1,000 mg capsule furosemide 20 mg tablet 10 mg PO QAM 07/09/21 12/23/21 apixaban 5 mg tablet (Eliquis) 5 mg PO BID 07/22/21 12/23/21 cholecalciferol (vitamin D3) 50 50 mcg PO DAILY 07/22/21 12/23/21 mcg (2,000 unit) capsule potassium chloride 10 mEq 20 meq PO DAILY 07/22/21 12/23/21 capsule,extended release Previous Rx's Medication Instructions Recorded ondansetron 4 mg disintegrating 4 mg PO Q8H PRN nausea and 06/24/21 tablet vomiting #10 tabs tramadol 50 mg tablet 50 mg PO Q8H PRN pain #14 tabs 02/28/22 [id number]-[id number] 1 cap PO Q6H PRN pain #10 caps 05/30/22 50 mg-300 mg-40 mg capsule (Fioricet) ondansetron 4 mg disintegrating 4 mg PO Q6-8H PRN nausea and 06/15/22 tablet vomiting #10 tabs rizatriptan 10 mg tablet (Maxalt) 10 mg PO Q2-4H PRN migraine 06/16/22 headache #10 tabs nortriptyline 10 mg capsule 10 mg PO BEDTIME #30 caps 06/17/22 prednisone 20 mg tablet 40 mg (2 x 20 mg) PO DAILY #10 tabs 06/17/22 rimegepant 75 mg disintegrating 75 mg PO Q OTHER DAY PRN migraine 06/17/22 tablet headache #10 tabs metoclopramide HCl 10 mg tablet 10 mg PO Q6H PRN nausea and 06/18/22 (Reglan) vomiting #14 tabs lorazepam 0.5 mg tablet (Ativan) 0.5 mg PO BID PRN nausea and 06/19/22 vomiting #10 tabs diazepam 5 mg tablet (Valium) 5 mg PO BID-QID PRN muscle spasm 08/08/22 #10 tabs hydrocodone 5 mg-acetaminophen 325 1 tab PO Q4-6H PRN pain #10 tabs 08/08/22 mg tablet ketorolac 10 mg tablet 10 mg PO Q6H PRN pain #14 tabs 08/08/22 lidocaine 5 % topical patch 1 patch topical DAILY #15 ea 08/08/22 (Lidoderm) furosemide 20 mg tablet (Lasix) 20 mg PO DAILY #3 tabs 01/23/23 isosorbide mononitrate 30 mg 30 mg PO DAILY #30 tabs 01/24/23 tablet,extended release 24 hr diazepam 5 mg tablet (Valium) 5 mg PO BID-QID PRN muscle spasm 03/12/23 #10 tabs hydrocodone 5 mg-acetaminophen 325 1 tab PO Q4-6H PRN pain #10 tabs 03/12/23 mg tablet methylprednisolone 4 mg tablets in See Rx Instructions PO .COMPLEX 03/12/23 a dose pack (Medrol (Jabier)) #21 ea hydrocodone 5 mg-acetaminophen 325 1 tab PO QID PRN pain #10 tabs 09/11/23 mg tablet ondansetron 4 mg disintegrating 4 mg PO Q8H PRN nausea and 09/17/23 tablet vomiting #10 tabs Allergies Allergy/AdvReac Type Severity Reaction Status Date / Time lisinopril Allergy Severe Anaphylaxis Verified 03/13/23 15:55 metformin AdvReac Vomiting Verified 03/13/23 15:55 Patient History Medical History UTI (urinary tract infection) Facet arthropathy, lumbar Atrial fibrillation Lumbar radiculopathy Tinnitus Nose fracture (~06/29/21) HLD (hyperlipidemia) Heart murmur Chronic pancreatitis Depression Chronic back pain Breast cancer Migraine headache Hypothyroidism Hypertension Surgical History Hx of tonsillectomy History of colonoscopy Hx of oophorectomy History of hysterectomy Hx of breast surgery Hx of cholecystectomy Family History Father Brain tumor Congestive heart failure Mother Hypertension Stroke Grandfather Stroke Social History household members: spouse Smoking Status: Former smoker alcohol intake: current Smoking Status: Former smoker tobacco type: cigarettes alcohol intake frequency: a few times a month Alcohol type: wine Substance Use Type: does not use Exam Initial Vital Signs Initial Vital Signs: Vital Signs Temperature 98.1 F 09/17/23 15:14 Pulse Rate 58 L 09/17/23 15:14 Respiratory Rate 16 09/17/23 15:14 Blood Pressure 160/79 H 09/17/23 15:14 Pulse Oximetry 99 09/17/23 15:14 Oxygen Delivery Method Room Air 09/17/23 15:14 GENERAL: Alert 73-year-old female appears to not feel well HEENT: Head atraumatic,EOMI, pupils reactive, face symmetric, moist mucous membranes CARDIOVASCULAR: Regular rate and rhythm without murmurs, rubs or gallops. RESPIRATORY: Breath sounds equal bilaterally, no wheezes rales or rhonchi. ABDOMEN: Soft, tender epigastric region and right upper quadrant positive West's sign EXTREMITIES: Normal range of motion, no clubbing or edema. Neurovascularly intact NEUROLOGICAL: Alert and oriented x4.Normal gait and speech SKIN: Warm, dry, no laceration, no petechiae, no rashes or lesions. Course Orders Ordered: Discontinued Medications Sodium Chloride (Normal Saline 0.9%) 1,000 mls @ 1,000 mls/hr IV BOLUS ONE Stop: 09/17/23 17:33 Last Infusion: 09/17/23 17:33 Dose: Infused Documented By: Admin: 09/17/23 16:57 Dose: 1,000 mls/hr Documented By: ADRIÁN Morphine Sulfate (Morphine 2 Mg/Ml Inj) 2 mg IV NOW ONE Stop: 09/17/23 16:35 Last Admin: 09/17/23 16:57 Dose: 2 mg Documented By: ADRIÁN Ondansetron HCl (Ondansetron 4 Mg Odt) 4 mg PO NOW PRN PRN Reason: Nausea And Vomiting Ondansetron HCl (Ondansetron 4 Mg/2 Ml Inj) 4 mg IV NOW PRN PRN Reason: Nausea And Vomiting Ondansetron HCl (Ondansetron 4 Mg/2 Ml Inj) 4 mg IV NOW ONE Stop: 09/17/23 16:35 Last Admin: 09/17/23 16:58 Dose: 4 mg Documented By: ADRIÁN Ondansetron HCl (Ondansetron 4 Mg Odt Prepack) 1 bottle MISC DIRECTED ONE Stop: 09/17/23 18:32 Last Admin: 09/17/23 18:50 Dose: 1 bottle Documented By: ADRIÁN Vital Signs Vital signs: Vital Signs - 8 hr 09/17/23 15:14 Temperature 98.1 F Pulse Rate 58 L Respiratory Rate 16 Blood Pressure 160/79 H Pulse Oximetry 99 Oxygen Delivery Method Room Air MDM - Abdominal Pain Lab Data 09/17/23 15:30 09/17/23 15:30 Labs: Lab Results 09/17/23 Range/Units 15:30 WBC 8.2 (4.5-11.0) X10^3/uL RBC 4.85 (4.0-5.2) X10^6/uL Hgb 15.3 (12.0-16.0) g/dL Hct 46.2 H (36-46) % MCV 95.1 (80-100) fL MCH 31.6 (26-34) PG MCHC 33.2 (30-36) % RDW 14.3 (11.6-14.8) % Plt Count 226 (150-400) X10^3/uL Neut % (Auto) 63.1 (50-75) % Lymph % (Auto) 24.2 L (25-40) % [place] % (Auto) 10.4 (3-14) % Eos % (Auto) 1.6 L (2-4) % Baso % (Auto) 0.7 (0-2) % Neut # (Auto) 5200 (7299-4692) /uL Lymph # (Auto) 2000 (8468-6488) /uL [place] # (Auto) 900 (0-900) /uL Eos # (Auto) 100 (0-450) /uL Baso # (Auto) 100 (0-100) /uL Sodium 136 L (137-145) mmol/L Potassium 4.0 (3.4-5.1) mmol/L Chloride 107 (98-107) mmol/L Carbon Dioxide 21 L (22-32) mmol/L BUN 16 (7-17) mg/dL Creatinine 1.01 (0.52-1.04) mg/dL Estimated GFR 58 L (>60) mL/min BUN/Creatinine Ratio 15.8 (6-22) Glucose 124 H (80-110) mg/dL Calcium 9.8 (8.4-10.2) mg/dL Total Bilirubin 0.5 (0.2-1.3) mg/dL AST 48 H (14-36) IU/L ALT 46 H (<35) IU/L Alkaline Phosphatase 85 (38-126) U/L Total Protein 6.8 (6.3-8.2) g/dL Albumin 4.0 (3.5-5.0) g/dL Globulin 2.8 (1.7-4.1) g/dL Albumin/Globulin Ratio 1.4 (1.0-2.8) Lipase 72 (23-300) U/L Point of care testing: Urine Dip Bedside Urine Glucose 1000 mg/dl Bedside Urine Bilirubin - Negative Bedside Urine Ketone - Negative Urine Specific [place] 1.010 Bedside Urine Occult Blood - Negative Bedside Urine pH 6.0 Bedside Urine Protein - Negative Bedside Urine Urobilinogen - Negative Bedside Urine Nitrite - Negative Bedside Urine Leukocytes - Negative Esterase Imaging Data CT scan - abdomen/pelvis: Radiologist's Impression: PROCEDURE: CT ABDOMEN PELVIS W CON INDICATIONS: abdominal pain epigastric TECHNIQUE: After the administration of IV contrast, axial sections were acquired from the lung bases to the pubic symphysis. Coronal and sagittal reformats were performed. For radiation dose reduction, the following was used: automated exposure control, adjustment of mA and/or kV according to patient size. COMPARISON: [facility], US, US ABDOMEN LIMITED, 09/17/2023, 16:44. [facility], CT, CT ABDOMEN PELVIS W CON, 03/13/2023, 16:00. FINDINGS: Image quality: Excellent. Lung bases: Unremarkable. Heart: No significant findings. ABDOMEN: Liver: No solid mass. Gallbladder: Absent. Biliary ducts: No biliary dilation. Pancreas: Atrophic. Spleen: Size is within normal limits. Adrenal Glands: No adrenal nodules. Kidneys and Ureters: Bilateral cortical thinning. No hydronephrosis. No solid mass. No complex renal cystic lesion which requires follow up. Stomach and Bowel: Normal colonic caliber, without significant wall thickening. Diverticulosis. The appendix is not dilated. Suspect small appendiculolith. Peritoneum: No abnormal intraperitoneal fluid. No free air. Ventral Wall: No significant hernia. Abdominal Nodes: No retroperitoneal or mesenteric adenopathy by size criteria. Vessels: Aorta and inferior vena cava are normal in size. PELVIS: Pelvic Organs: Uterus is absent. Bladder: No stone. Pelvic Nodes: No enlarged lymph nodes. Miscellaneous: No inguinal hernias are seen. Bones: No suspicious osseous lesion. Multilevel DDD. IMPRESSION: No acute abnormality demonstrated. No free fluid. Dictated by: Uriel Simmons M.D. on 09/17/2023 at 18:09 US - abdomen: Radiologist's Impression: PROCEDURE: US ABDOMEN LIMITED INDICATIONS: Right upper quadrant pain TECHNIQUE: Real-time focused scanning was performed of the abdomen, with image documentation. COMPARISON: [facility], CT, CT ABDOMEN PELVIS W CON, 03/13/2023, 16:00. [facility], US, US ABDOMEN LIMITED, 10/12/2022, 16:29. FINDINGS: The liver demonstrates mildly enlarged size. The liver demonstrates generalized mildly increased echogenicity. This decreases ultrasound sensitivity for detection of hepatic masses. Status post cholecystectomy. There is no biliary dilatation, the common bile duct measures 4 mm. No significant pancreatic abnormality is seen on these images. IMPRESSION: Status post cholecystectomy, without biliary dilatation. ECG Data Interpretation: Normal sinus rhythm rate 59 NV interval 184 QRS 70 QTC 413 T-wave inversion noted in lead 3 similar to previous EKGs MDM Narrative Medical decision making narrative: Patient 73-year-old female presenting today with epigastric pain and nausea. She is quite tender on exam she has had prior cholecystectomy but is tender in right upper. Blood work reviewed: No leukocytosis or anemia, electrolytes kidney function within normal limits normal bilirubin 0.5 AST 48 ALT 46 no significant elevation alk-phos is 85 Imaging reviewed ultrasound and CT both do not show any abnormalities She is doing much better after Zofran and morphine. She like she is able to go. She is any vomiting in the ED. we discussed oral rehydration and Zofran at home. Discharge Plan Departure Patient Disposition: Home Clinical Impression: Gastroenteritis Instructions: DI for Viral Gastroenteritis -- Adult, DI for Abdominal Pain-Adult Activity Restrictions/Additional Instructions: *You have been diagnosed with abdominal pain, possible viral illness *What to do: At this time your blood work ultrasound and CT scan are overall reassuring. You may have a virus causing to be nauseous and have some pain. Increase fluid intake as tolerated. *Continue to take medications as directed Zofran 4 mg every 8 hours if needed for nausea or vomiting--> [facility] Tylenol 650 mg every 4-6 hours if needed for [id number] *Follow up with your primary care provider in 2-3 days or call [phone] *Return to ER if you should have increasing pain persistent vomiting or any new, worsening or concerning symptoms Prescriptions: New ondansetron 4 mg tablet,disintegrating 4 mg PO Q8H PRN (Reason: nausea and vomiting) Qty: 10 0RF No Action aspirin 81 mg Tablet,Chewable 81 mg PO QAM ondansetron 4 mg tablet,disintegrating 4 mg PO Q8H PRN (Reason: nausea and vomiting) Qty: 10 0RF furosemide 20 mg Tablet 10 mg PO QAM [id number] [Fioricet] 50-300-40 mg capsule 1 cap PO Q6H PRN (Reason: pain) Qty: 10 0RF ondansetron 4 mg tablet,disintegrating 4 mg PO Q6-8H PRN (Reason: nausea and vomiting) Qty: 10 0RF rizatriptan [Maxalt] 10 mg tablet 10 mg PO Q2-4H PRN (Reason: migraine headache) Qty: 10 0RF Rx Instructions: do not exceed 3 doses per 24 hrs furosemide [Lasix] 20 mg tablet 20 mg PO DAILY Qty: 3 0RF multivitamin Tablet 1 tab PO DAILY Qty: 0 atenolol 25 mg Tablet 25 mg PO DAILY levothyroxine [Synthroid] 150 mcg Tablet 150 mcg PO DAILY ezetimibe 10 mg Tablet 10 mg PO DAILY omega-3 fatty acids-vitamin E 1,000 mg Capsule 1 cap PO DAILY tramadol 50 mg tablet 50 mg PO Q8H PRN (Reason: pain) Qty: 14 0RF prednisone 20 mg tablet 40 mg PO DAILY Qty: 10 0RF rimegepant 75 mg tablet,disintegrating 75 mg PO Q OTHER DAY PRN (Reason: migraine headache) Qty: 10 0RF nortriptyline 10 mg capsule 10 mg PO BEDTIME Qty: 30 0RF metoclopramide HCl [Reglan] 10 mg tablet 10 mg PO Q6H PRN (Reason: nausea and vomiting) Qty: 14 0RF lorazepam [Ativan] 0.5 mg tablet 0.5 mg PO BID PRN (Reason: nausea and vomiting) Qty: 10 0RF hydrocodone-acetaminophen 5-325 mg tablet 1 tab PO Q4-6H PRN (Reason: pain) Qty: 10 0RF ketorolac 10 mg tablet 10 mg PO Q6H PRN (Reason: pain) Qty: 14 0RF lidocaine [Lidoderm] 5 % adhesive patch,medicated 1 patch TOP DAILY Qty: 15 0RF Rx Instructions: leave on most painful area for 12 hrs diazepam [Valium] 5 mg tablet 5 mg PO BID-QID PRN (Reason: muscle spasm) Qty: 10 0RF isosorbide mononitrate 30 mg tablet extended release 24 hr 30 mg PO DAILY Qty: 30 0RF hydrocodone-acetaminophen 5-325 mg tablet 1 tab PO Q4-6H PRN (Reason: pain) Qty: 10 0RF methylprednisolone [Medrol (Jabier)] 4 mg tablets,dose pack See Rx Instructions .ROUTE .COMPLEX Qty: 21 0RF Rx Instructions: orally per package directions diazepam [Valium] 5 mg tablet 5 mg PO BID-QID PRN (Reason: muscle spasm) Qty: 10 0RF hydrocodone-acetaminophen 5-325 mg tablet 1 tab PO QID PRN (Reason: pain) Qty: 10 0RF potassium chloride 10 mEq capsule, extended release 20 meq PO DAILY cholecalciferol (vitamin D3) 50 mcg (2,000 unit) capsule 50 mcg PO DAILY Eliquis 5 mg tablet 5 mg PO BID Referrals: Yuli Lang PA-C [Primary Care Provider] - Stand Alone Forms: Patient Portal/API
[2023-09-17] MEDS: MORPHINE 2 MG/ML INJ IV (16:57)
[2023-09-17] MEDS: SODIUM CHLORIDE 0.9% 1,000 ML 1000 ML IV (16:57)
[2023-09-17] MEDS: ONDANSETRON 4 MG/2 ML INJ IV (16:58)
--- NOTE | 2023-09-17 18:05 | DI.CT.S_ITS ---
PROCEDURE: CT ABDOMEN PELVIS W CON INDICATIONS: abdominal pain epigastric TECHNIQUE: After the administration of IV contrast, axial sections were acquired from the lung bases to the pubic symphysis. Coronal and sagittal reformats were performed. For radiation dose reduction, the following was used: automated exposure control, adjustment of mA and/or kV according to patient size. COMPARISON: [facility], US, US ABDOMEN LIMITED, 09/17/2023, 16:44. [facility], CT, CT ABDOMEN PELVIS W CON, 03/13/2023, 16:00. FINDINGS: Image quality: Excellent. Lung bases: Unremarkable. Heart: No significant findings. ABDOMEN: Liver: No solid mass. Gallbladder: Absent. Biliary ducts: No biliary dilation. Pancreas: Atrophic. Spleen: Size is within normal limits. Adrenal Glands: No adrenal nodules. Kidneys and Ureters: Bilateral cortical thinning. No hydronephrosis. No solid mass. No complex renal cystic lesion which requires follow up. Stomach and Bowel: Normal colonic caliber, without significant wall thickening. Diverticulosis. The appendix is not dilated. Suspect small appendiculolith. Peritoneum: No abnormal intraperitoneal fluid. No free air. Ventral Wall: No significant hernia. Abdominal Nodes: No retroperitoneal or mesenteric adenopathy by size criteria. Vessels: Aorta and inferior vena cava are normal in size. PELVIS: Pelvic Organs: Uterus is absent. Bladder: No stone. Pelvic Nodes: No enlarged lymph nodes. Miscellaneous: No inguinal hernias are seen. Bones: No suspicious osseous lesion. Multilevel DDD. IMPRESSION: No acute abnormality demonstrated. No free fluid. Dictated by: Uriel Simmons M.D. on 09/17/2023 at 18:09 Approved by: Uriel Simmons M.D. on 09/17/2023 at 18:13
[2023-09-17] MEDS: ONDANSETRON 4 MG ODT PREPACK 1 BOTTLE MISC (18:50)
== END 2023-09-17 18:54 | disposition home or self-care (01) ==
PROVIDERS: Emergency Provider Emergency Medicine; PCP Physician Assistant
DX: K52.9 Noninfective gastroenteritis and colitis, unspecified (principal); Z79.01 Long term (current) use of anticoagulants; Z79.899 Other long term (current) drug therapy
CPT/HCPCS: 36415; 74177; 76705; 80053; 81003; 83690; 85025; 93005; 93010; 96361; 96374; 96375; 99284; J2270; J2405; Q9967

== ENCOUNTER 2023-09-19 12:38 | Emergency (ER) | payer MEDICARE, OTHER, SELFPAY ==
[2021-06-25 17:33] VITALS: BMI 28.1
[2023-09-19 12:43] VITALS: BP 148/69; PULSE 62; RESP 18; TEMP 36.6; O2SAT 100; BMI 25.0
[2023-09-19 12:55] VITALS: O2SAT 100
[2023-09-19 12:56] VITALS: BP 145/72; PULSE 61; O2SAT 99
[2023-09-19 13:00] VITALS: PULSE 60; RESP 16; O2SAT 100
--- NOTE | 2023-09-19 13:10 | PC.NURSE ---
Pt returned to the ED after being seen 3 days ago for LUQ pain. Pt reports having pancreatitis a few years ago and this feels similar. Pain describes pain as 10/10 throbbing that radiates to back. LUQ tender to palpation and pt is guarding. VS WNL. A&Ox4.
[2023-09-19 13:22] LABS: Alanine Aminotransferase 41 IU/L (<35); Albumin 4.1 g/dL (3.5-5.0); Albumin Globulin Ratio 1.6 (1.0-2.8); Alkaline Phosphatase 82 U/L (38-126); Aspartate Aminotransferase 40 IU/L (14-36); BUN Creatinine Ratio 12.5 (6-22); Bilirubin Total 0.7 mg/dL (0.2-1.3); Blood Urea Nitrogen 14 mg/dL (7-17); Carbon Dioxide 23 mmol/L (22-32); Chloride 106 mmol/L (98-107); Creatine Kinase 39 U/L (30-135); Estimated Glomerular Filt Rate 51 mL/min (>60); Globulin 2.6 g/dL (1.7-4.1); Glucose 100 mg/dL (80-110); HEMOLYSIS < 15 (0-50); Lipase 78 U/L (23-300); Potassium 3.9 mmol/L (3.4-5.1); Sodium 139 mmol/L (137-145); Total Protein 6.7 g/dL (6.3-8.2)
--- NOTE | 2023-09-19 13:26 | ED_ITS ---
HPI - Abdominal Pain General Chief Complaint: Abdominal Pain Stated Complaint: rt rib pain; gastro Time Seen by Provider: 09/19/23 13:22 Source: patient Mode of arrival: Ambulatory History of Present Illness HPI narrative: 73-year-old woman comes to the ED with persistent right upper quadrant pain radiating to the back. This has been present for a few days now. She was seen in the ED 2 days ago and had a negative CT and other workup at that time. Pain persists including nausea and vomiting. No fever. Some constipation. No diarrhea. The patient does drink alcohol rarely no recent alcohol. She has a remote history of cholecystectomy. She does have a history of pancreatitis as recently as a couple of years ago. Related Data Home Medications Medication Instructions Recorded Confirmed aspirin 81 mg chewable tablet 81 mg PO QAM 07/26/20 12/23/21 atenolol 25 mg tablet 25 mg PO DAILY 06/25/21 12/23/21 ezetimibe 10 mg tablet 10 mg PO DAILY 06/25/21 12/23/21 levothyroxine 150 mcg tablet 150 mcg PO DAILY 06/25/21 12/23/21 (Synthroid) multivitamin 1 tab PO DAILY ##0 06/25/21 12/23/21 omega-3 fatty acids-vitamin E 1 cap PO DAILY 06/25/21 12/23/21 1,000 mg capsule furosemide 20 mg tablet 10 mg PO QAM 07/09/21 12/23/21 apixaban 5 mg tablet (Eliquis) 5 mg PO BID 07/22/21 12/23/21 cholecalciferol (vitamin D3) 50 50 mcg PO DAILY 07/22/21 12/23/21 mcg (2,000 unit) capsule potassium chloride 10 mEq 20 meq PO DAILY 07/22/21 12/23/21 capsule,extended release Previous Rx's Medication Instructions Recorded ondansetron 4 mg disintegrating 4 mg PO Q8H PRN nausea and 06/24/21 tablet vomiting #10 tabs tramadol 50 mg tablet 50 mg PO Q8H PRN pain #14 tabs 02/28/22 malnwdzcdw-xhyuniihfyrru-ohnmddws 1 cap PO Q6H PRN pain #10 caps 05/30/22 50 mg-300 mg-40 mg capsule (Fioricet) ondansetron 4 mg disintegrating 4 mg PO Q6-8H PRN nausea and 06/15/22 tablet vomiting #10 tabs rizatriptan 10 mg tablet (Maxalt) 10 mg PO Q2-4H PRN migraine 06/16/22 headache #10 tabs nortriptyline 10 mg capsule 10 mg PO BEDTIME #30 caps 06/17/22 prednisone 20 mg tablet 40 mg (2 x 20 mg) PO DAILY #10 tabs 06/17/22 rimegepant 75 mg disintegrating 75 mg PO Q OTHER DAY PRN migraine 06/17/22 tablet headache #10 tabs metoclopramide HCl 10 mg tablet 10 mg PO Q6H PRN nausea and 06/18/22 (Reglan) vomiting #14 tabs lorazepam 0.5 mg tablet (Ativan) 0.5 mg PO BID PRN nausea and 06/19/22 vomiting #10 tabs diazepam 5 mg tablet (Valium) 5 mg PO BID-QID PRN muscle spasm 08/08/22 #10 tabs hydrocodone 5 mg-acetaminophen 325 1 tab PO Q4-6H PRN pain #10 tabs 08/08/22 mg tablet ketorolac 10 mg tablet 10 mg PO Q6H PRN pain #14 tabs 08/08/22 lidocaine 5 % topical patch 1 patch topical DAILY #15 ea 08/08/22 (Lidoderm) furosemide 20 mg tablet (Lasix) 20 mg PO DAILY #3 tabs 01/23/23 isosorbide mononitrate 30 mg 30 mg PO DAILY #30 tabs 01/24/23 tablet,extended release 24 hr diazepam 5 mg tablet (Valium) 5 mg PO BID-QID PRN muscle spasm 03/12/23 #10 tabs hydrocodone 5 mg-acetaminophen 325 1 tab PO Q4-6H PRN pain #10 tabs 03/12/23 mg tablet methylprednisolone 4 mg tablets in See Rx Instructions PO .COMPLEX 03/12/23 a dose pack (Medrol (Jabier)) #21 ea hydrocodone 5 mg-acetaminophen 325 1 tab PO QID PRN pain #10 tabs 09/11/23 mg tablet ondansetron 4 mg disintegrating 4 mg PO Q8H PRN nausea and 09/17/23 tablet vomiting #10 tabs metoclopramide HCl 10 mg tablet 10 mg PO Q6H PRN nausea and 09/19/23 (Reglan) vomiting #14 tabs morphine 15 mg immediate release 15 mg PO Q6H PRN pain #10 tabs 09/19/23 tablet naloxone 4 mg/actuation nasal 4 mg intranasal Q2M #2 ea 09/19/23 spray (Narcan) Allergies Allergy/AdvReac Type Severity Reaction Status Date / Time lisinopril Allergy Severe Anaphylaxis Verified 09/19/23 12:43 metformin AdvReac Vomiting Verified 09/19/23 12:43 Patient History Medical History UTI (urinary tract infection) Facet arthropathy, lumbar Atrial fibrillation Lumbar radiculopathy Tinnitus Nose fracture (~06/29/21) HLD (hyperlipidemia) Heart murmur Chronic pancreatitis Depression Chronic back pain Breast cancer Migraine headache Hypothyroidism Hypertension Surgical History Hx of tonsillectomy History of colonoscopy Hx of oophorectomy History of hysterectomy Hx of breast surgery Hx of cholecystectomy Family History Father Brain tumor Congestive heart failure Mother Hypertension Stroke Grandfather Stroke Social History household members: spouse Smoking Status: Former smoker alcohol intake: current Smoking Status: Former smoker tobacco type: cigarettes alcohol intake frequency: a few times a month Alcohol type: wine Substance Use Type: does not use Exam Narrative Exam Narrative: GENERAL: Alert, cooperative and in no distress. HEAD: Atraumatic. Normocephalic. EYES: Sclera are clear without icterus. ENT: No rhinorrhea. NECK: Supple. Full range of motion. CARDIOVASCULAR: Normal rate and rhythm without murmur gallop or rub. RESPIRATORY: Clear to auscultation. Breath sounds equal bilaterally. No wheezes, rales, or rhonchi. GASTROINTESTINAL: Abdomen soft, tenderness in the midepigastrium and right upper quadrant without guarding. EXTREMITIES: No edema, full range of motion. No obvious trauma. BACK: Normal inspection, no CVA tenderness. NEURO: Nonfocal examination, normal speech SKIN: No rash or erythema of visible areas PSYCH: Normally oriented. Normal range of affect. Appropriate behavior Initial Vital Signs Initial Vital Signs: Vital Signs Temperature 97.9 F 09/19/23 12:43 Pulse Rate 62 09/19/23 12:43 Respiratory Rate 18 09/19/23 12:43 Blood Pressure 148/69 H 09/19/23 12:43 Pulse Oximetry 100 09/19/23 12:43 Oxygen Delivery Method Room Air 09/19/23 12:43 Course Orders Ordered: ED Orders 09/19/23 13:04 Complete Blood Count AUTO DIFF Stat Comprehensive Metabolic Panel Stat Lipase Stat Troponin & CK Cardiac Panel Stat Sodium Chloride (Normal Saline 0.9%) 1,000 mls @ 1,000 mls/hr IV BOLUS ONE Stop: 09/19/23 14:30 Last Admin: 09/19/23 13:43 Dose: 1,000 mls/hr Documented By: FILI Ondansetron HCl (Ondansetron 4 Mg Odt) 4 mg PO NOW PRN PRN Reason: Nausea And Vomiting Ondansetron HCl (Ondansetron 4 Mg/2 Ml Inj) 4 mg IV NOW PRN PRN Reason: Nausea And Vomiting Discontinued Medications Acetaminophen (Acetaminophen 325 Mg Tablet) 975 mg PO NOW ONE Stop: 09/19/23 13:32 Hydromorphone HCl (Hydromorphone 0.5 Mg Inj) 0.5 mg IV NOW ONE Stop: 09/19/23 13:32 Last Admin: 09/19/23 13:44 Dose: 0.5 mg Documented By: FILI Ketorolac Tromethamine (Ketorolac 30 Mg/Ml Vial) 15 mg IV NOW ONE Stop: 09/19/23 13:32 Last Admin: 09/19/23 13:44 Dose: 15 mg Documented By: FILI Metoclopramide HCl (Metoclopramide 10 Mg/2 Ml Inj) 10 mg IV NOW ONE Stop: 09/19/23 13:32 Last Admin: 09/19/23 13:43 Dose: 10 mg Documented By: FILI Vital Signs Vital signs: Vital Signs - 8 hr 09/19/23 12:43 09/19/23 12:55 09/19/23 12:56 Temperature 97.9 F Pulse Rate 62 Respiratory Rate 18 Blood Pressure 148/69 H 145/72 H Pulse Oximetry 100 100 Oxygen Delivery Method Room Air 09/19/23 12:56 09/19/23 13:00 09/19/23 13:30 Temperature Pulse Rate 61 60 59 L Respiratory Rate 16 Blood Pressure Pulse Oximetry 99 100 99 Oxygen Delivery Method Room Air MDM - Abdominal Pain Lab Data 09/19/23 13:04 09/19/23 13:04 Labs: Lab Results 09/19/23 Range/Units 13:04 WBC 8.2 (4.5-11.0) X10^3/uL RBC 4.81 (4.0-5.2) X10^6/uL Hgb 15.2 (12.0-16.0) g/dL Hct 45.3 (36-46) % MCV 94.2 (80-100) fL MCH 31.5 (26-34) PG MCHC 33.5 (30-36) % RDW 14.3 (11.6-14.8) % Plt Count 229 (150-400) X10^3/uL Neut % (Auto) 68.4 (50-75) % Lymph % (Auto) 20.3 L (25-40) % [place] % (Auto) 9.5 (3-14) % Eos % (Auto) 1.3 L (2-4) % Baso % (Auto) 0.5 (0-2) % Neut # (Auto) 5600 (2601-7039) /uL Lymph # (Auto) 1700 (1911-7965) /uL [place] # (Auto) 800 (0-900) /uL Eos # (Auto) 100 (0-450) /uL Baso # (Auto) 0 (0-100) /uL Sodium 139 (137-145) mmol/L Potassium 3.9 (3.4-5.1) mmol/L Chloride 106 (98-107) mmol/L Carbon Dioxide 23 (22-32) mmol/L BUN 14 (7-17) mg/dL Creatinine 1.12 H (0.52-1.04) mg/dL Estimated GFR 51 L (>60) mL/min BUN/Creatinine Ratio 12.5 (6-22) Glucose 100 (80-110) mg/dL Calcium 10.0 (8.4-10.2) mg/dL Total Bilirubin 0.7 (0.2-1.3) mg/dL AST 40 H (14-36) IU/L ALT 41 H (<35) IU/L Alkaline Phosphatase 82 (38-126) U/L Total Creatine Kinase 39 (30-135) U/L Troponin I < 0.012 (0.01-0.034) ng/mL Total Protein 6.7 (6.3-8.2) g/dL Albumin 4.1 (3.5-5.0) g/dL Globulin 2.6 (1.7-4.1) g/dL Albumin/Globulin Ratio 1.6 (1.0-2.8) Lipase 78 (23-300) U/L MDM Narrative Medical decision making narrative: Patient with 3 or 4 days of midepigastric right upper quadrant pain with a remote history of cholecystectomy and a history of pancreatitis as well. Lipase on the 16th and today is well within the normal range. We will also check liver function tests again today. No immediate need for repeat imaging in his much as 48 hours ago she had a normal abdominal CT. Her vital signs are reassuring at this time. Will perform additional testing based on blood test results 1421 Patient feels dramatically improved with modest intervention. Testing is reassuring. Detailed imaging from 2 days ago is also reassuring. I do not think further workup is indicated. I recommend symptom management and close outpatient follow-up. Careful return precautions including cautions regarding opioid analgesia are given to the patient in detail it verbally. Discharge Plan Departure Patient Disposition: Home Clinical Impression: Abdominal pain Activity Restrictions/Additional Instructions: I can not tell you for sure what the cause of your abdominal pain is but I suspect it is either related to the liver or the pancreas. Fortunately, blood testing is reassuring today as were detailed imaging tests done just in the past 48 hours. I think symptom control is all that needs to happen over the next couple of days. You should follow-up with your doctor before the weekend if the pain persists. For symptom management I recommend metoclopramide as needed for nausea as frequently as every 6 hours. For pain I recommend Tylenol 1000 mg taken together with ibuprofen 400 mg every 6 hours. In addition to that you can take morphine tablet 1 every 6 hours as needed for severe pain. Be very careful with this medicine as it can cause constipation and nausea. It can also make you feel very lightheaded and more prone to falling so be very cautious with this. Whenever I prescribe a strong narcotic medicine I always prescribe naloxone as the antidote for an unintentional overdose. Never combine this medicine with other sedatives such as sleep aids or alcohol. Return to the ED for severe symptoms not reasonably managed with the above medications. Prescriptions: New morphine 15 mg tablet 15 mg PO Q6H PRN (Reason: pain) Qty: 10 0RF naloxone [Narcan] 4 mg/actuation spray,non-aerosol 4 mg intranasal Q2M Qty: 2 0RF Rx Instructions: spray 1 dose into ONE nostril; alternate nostrils w each dose until help arrives metoclopramide HCl [Reglan] 10 mg tablet 10 mg PO Q6H PRN (Reason: nausea and vomiting) Qty: 14 0RF No Action aspirin 81 mg Tablet,Chewable 81 mg PO QAM ondansetron 4 mg tablet,disintegrating 4 mg PO Q8H PRN (Reason: nausea and vomiting) Qty: 10 0RF furosemide 20 mg Tablet 10 mg PO QAM seyyybwyaz-imlqszdyxoskw-cuai [Fioricet] 50-300-40 mg capsule 1 cap PO Q6H PRN (Reason: pain) Qty: 10 0RF ondansetron 4 mg tablet,disintegrating 4 mg PO Q6-8H PRN (Reason: nausea and vomiting) Qty: 10 0RF rizatriptan [Maxalt] 10 mg tablet 10 mg PO Q2-4H PRN (Reason: migraine headache) Qty: 10 0RF Rx Instructions: do not exceed 3 doses per 24 hrs furosemide [Lasix] 20 mg tablet 20 mg PO DAILY Qty: 3 0RF ondansetron 4 mg tablet,disintegrating 4 mg PO Q8H PRN (Reason: nausea and vomiting) Qty: 10 0RF multivitamin Tablet 1 tab PO DAILY Qty: 0 atenolol 25 mg Tablet 25 mg PO DAILY levothyroxine [Synthroid] 150 mcg Tablet 150 mcg PO DAILY ezetimibe 10 mg Tablet 10 mg PO DAILY omega-3 fatty acids-vitamin E 1,000 mg Capsule 1 cap PO DAILY tramadol 50 mg tablet 50 mg PO Q8H PRN (Reason: pain) Qty: 14 0RF prednisone 20 mg tablet 40 mg PO DAILY Qty: 10 0RF rimegepant 75 mg tablet,disintegrating 75 mg PO Q OTHER DAY PRN (Reason: migraine headache) Qty: 10 0RF nortriptyline 10 mg capsule 10 mg PO BEDTIME Qty: 30 0RF metoclopramide HCl [Reglan] 10 mg tablet 10 mg PO Q6H PRN (Reason: nausea and vomiting) Qty: 14 0RF lorazepam [Ativan] 0.5 mg tablet 0.5 mg PO BID PRN (Reason: nausea and vomiting) Qty: 10 0RF hydrocodone-acetaminophen 5-325 mg tablet 1 tab PO Q4-6H PRN (Reason: pain) Qty: 10 0RF ketorolac 10 mg tablet 10 mg PO Q6H PRN (Reason: pain) Qty: 14 0RF lidocaine [Lidoderm] 5 % adhesive patch,medicated 1 patch TOP DAILY Qty: 15 0RF Rx Instructions: leave on most painful area for 12 hrs diazepam [Valium] 5 mg tablet 5 mg PO BID-QID PRN (Reason: muscle spasm) Qty: 10 0RF isosorbide mononitrate 30 mg tablet extended release 24 hr 30 mg PO DAILY Qty: 30 0RF hydrocodone-acetaminophen 5-325 mg tablet 1 tab PO Q4-6H PRN (Reason: pain) Qty: 10 0RF methylprednisolone [Medrol (Jabier)] 4 mg tablets,dose pack See Rx Instructions .ROUTE .COMPLEX Qty: 21 0RF Rx Instructions: orally per package directions diazepam [Valium] 5 mg tablet 5 mg PO BID-QID PRN (Reason: muscle spasm) Qty: 10 0RF hydrocodone-acetaminophen 5-325 mg tablet 1 tab PO QID PRN (Reason: pain) Qty: 10 0RF potassium chloride 10 mEq capsule, extended release 20 meq PO DAILY cholecalciferol (vitamin D3) 50 mcg (2,000 unit) capsule 50 mcg PO DAILY Eliquis 5 mg tablet 5 mg PO BID Referrals: Yuli Lang PA-C [Primary Care Provider] - Stand Alone Forms: Patient Portal/API
[2023-09-19 13:30] VITALS: PULSE 59; O2SAT 99
[2023-09-19 13:32] LABS: Add Manual Diff / Slide Review NO; Basophils Absolute Auto 0 /uL (0-100); Basophils Percent Auto 0.5 % (0-2); Eosinophils Absolute Auto 100 /uL (0-450); Eosinophils Percent Auto 1.3 % (2-4); Hematocrit 45.3 % (36-46); Hemoglobin 15.2 g/dL (12.0-16.0); Lymphocytes Absolute Auto 1700 /uL (1100-4500); Lymphocytes Percent Auto 20.3 % (25-40); Mean Corpuscular HGB Conc 33.5 % (30-36); Mean Corpuscular Hemoglobin 31.5 PG (26-34); Mean Corpuscular Volume 94.2 fL (80-100); Monocytes Absolute Auto 800 /uL (0-900); Monocytes Percent Auto 9.5 % (3-14); Neutrophils Absolute Auto 5600 /uL (1500-7000); Neutrophils Percent Auto 68.4 % (50-75); Platelet Count 229 X10^3/uL (150-400); Red Blood Cell Count 4.81 X10^6/uL (4.0-5.2); Red Cell Distribution Width 14.3 % (11.6-14.8); White Blood Cell Count 8.2 X10^3/uL (4.5-11.0)
[2023-09-19 13:33] LABS: Troponin I < 0.012 ng/mL (0.01-0.034)
[2023-09-19] MEDS: METOCLOPRAMIDE 10 MG/2 ML INJ IV (13:43)
[2023-09-19] MEDS: SODIUM CHLORIDE 0.9% 1,000 ML 1000 ML IV (13:43)
[2023-09-19] MEDS: HYDROMORPHONE 0.5 MG INJ IV (13:44)
[2023-09-19] MEDS: KETOROLAC 30 MG/ML VIAL 15 MG IV (13:44)
[2023-09-19 14:00] VITALS: BP 132/62; PULSE 60; O2SAT 92
[2023-09-19] MEDS: ACETAMINOPHEN 325 MG TABLET 975 MG PO (14:30)
--- NOTE | 2023-09-19 20:13 | PC.NURSE ---
Called and left message that pt's prescription was sent via e script by Dr. Dawson. Paper script was left behind.
== END 2023-09-19 14:36 | disposition home or self-care (01) ==
PROVIDERS: Emergency Provider Family Medicine Addiction Medicine; PCP Physician Assistant
DX: R10.11 Right upper quadrant pain (principal); R11.2 Nausea with vomiting, unspecified; Z79.01 Long term (current) use of anticoagulants; Z79.899 Other long term (current) drug therapy
CPT/HCPCS: 36415; 80053; 82550; 83690; 84484; 85025; 96361; 96374; 96375; 99284; J1170; J1885; J2765

== ENCOUNTER 2023-10-04 09:45 | Emergency (ER) | payer MEDICARE, OTHER, SELFPAY ==
[2021-06-25 17:33] VITALS: BMI 28.1
[2023-10-04] VITALS (13 sets, daily range): BP systolic 109–149; BP diastolic 55–92; PULSE 65–85; RESP 14–20; TEMP 36.4; O2SAT 96–100; BMI 25.5
[2023-10-04] MEDS: SODIUM CHLORIDE 0.9% 1,000 ML 1000 ML IV (10:34)
[2023-10-04] MEDS: diphenhydrAMINE 50 MG/ML VIAL 25 MG IV (10:35)
[2023-10-04 10:36] LABS: Add Manual Diff / Slide Review NO; Basophils Absolute Auto 100 /uL (0-100); Basophils Percent Auto 0.6 % (0-2); Eosinophils Absolute Auto 0 /uL (0-450); Eosinophils Percent Auto 0.5 % (2-4); Hematocrit 51.2 % (36-46); Hemoglobin 16.7 g/dL (12.0-16.0); Lymphocytes Absolute Auto 1800 /uL (1100-4500); Lymphocytes Percent Auto 19.1 % (25-40); Mean Corpuscular HGB Conc 32.6 % (30-36); Mean Corpuscular Hemoglobin 31.4 PG (26-34); Mean Corpuscular Volume 96.3 fL (80-100); Monocytes Absolute Auto 700 /uL (0-900); Neutrophils Absolute Auto 6800 /uL (1500-7000); Neutrophils Percent Auto 72.8 % (50-75); Platelet Count 203 X10^3/uL (150-400); Red Blood Cell Count 5.31 X10^6/uL (4.0-5.2); Red Cell Distribution Width 14.4 % (11.6-14.8); White Blood Cell Count 9.4 X10^3/uL (4.5-11.0)
[2023-10-04] MEDS: KETOROLAC 30 MG/ML VIAL IV (10:36)
[2023-10-04] MEDS: PROCHLORPERAZINE 10 MG/2 ML VIAL IV (10:38)
[2023-10-04 10:52] LABS: Bacteria Urine None Seen; Culture Indicated Urine Cult Not Indicated; RBC Urine 1-5/HPF (0-5/HPF); Squamous Epithelial Cell Urine 1-5 /HPF (0-5/HPF); WBC Urine None Seen (0-5/HPF)
[2023-10-04 11:43] LABS: Alanine Aminotransferase 23 IU/L (<35); Albumin 4.2 g/dL (3.5-5.0); Albumin Globulin Ratio 1.6 (1.0-2.8); Alkaline Phosphatase 81 U/L (38-126); BUN Creatinine Ratio 14.2 (6-22); Blood Urea Nitrogen 15 mg/dL (7-17); Carbon Dioxide 22 mmol/L (22-32); Chloride 107 mmol/L (98-107); Estimated Glomerular Filt Rate 55 mL/min (>60); Globulin 2.7 g/dL (1.7-4.1); Glucose 108 mg/dL (80-110); Potassium 4.3 mmol/L (3.4-5.1); Sodium 138 mmol/L (137-145); Total Protein 6.9 g/dL (6.3-8.2)
--- NOTE | 2023-10-04 11:49 | ED_ITS ---
HPI - Headache General Chief Complaint: Headache Stated Complaint: migraine Time Seen by Provider: 10/04/23 11:49 Mode of arrival: Family Vehicle History of Present Illness HPI Narrative: Patient is a 73-year-old female history of migraine headaches presents with migraine headache on the right side. She has been ongoing for the last couple of days she feels some pressure by right eye. She is sensitive to light and noise. She is blurry vision in that right eye which is very common for her when she gets migraine headaches. No fever chills no neck pain. No numbness tingling or weakness. She is on Eliquis for atrial fibrillation Related Data Home Medications Medication Instructions Recorded Confirmed aspirin 81 mg chewable tablet 81 mg PO QAM 07/26/20 12/23/21 atenolol 25 mg tablet 25 mg PO DAILY 06/25/21 12/23/21 ezetimibe 10 mg tablet 10 mg PO DAILY 06/25/21 12/23/21 levothyroxine 150 mcg tablet 150 mcg PO DAILY 06/25/21 12/23/21 (Synthroid) multivitamin 1 tab PO DAILY ##0 06/25/21 12/23/21 omega-3 fatty acids-vitamin E 1 cap PO DAILY 06/25/21 12/23/21 1,000 mg capsule furosemide 20 mg tablet 10 mg PO QAM 07/09/21 12/23/21 apixaban 5 mg tablet (Eliquis) 5 mg PO BID 07/22/21 12/23/21 cholecalciferol (vitamin D3) 50 50 mcg PO DAILY 07/22/21 12/23/21 mcg (2,000 unit) capsule potassium chloride 10 mEq 20 meq PO DAILY 07/22/21 12/23/21 capsule,extended release Previous Rx's Medication Instructions Recorded ondansetron 4 mg disintegrating 4 mg PO Q8H PRN nausea and 06/24/21 tablet vomiting #10 tabs tramadol 50 mg tablet 50 mg PO Q8H PRN pain #14 tabs 02/28/22 [id number] 1 cap PO Q6H PRN pain #10 caps 05/30/22 50 mg-300 mg-40 mg capsule (Fioricet) ondansetron 4 mg disintegrating 4 mg PO Q6-8H PRN nausea and 06/15/22 tablet vomiting #10 tabs rizatriptan 10 mg tablet (Maxalt) 10 mg PO Q2-4H PRN migraine 06/16/22 headache #10 tabs nortriptyline 10 mg capsule 10 mg PO BEDTIME #30 caps 06/17/22 prednisone 20 mg tablet 40 mg (2 x 20 mg) PO DAILY #10 tabs 06/17/22 rimegepant 75 mg disintegrating 75 mg PO Q OTHER DAY PRN migraine 06/17/22 tablet headache #10 tabs metoclopramide HCl 10 mg tablet 10 mg PO Q6H PRN nausea and 06/18/22 (Reglan) vomiting #14 tabs lorazepam 0.5 mg tablet (Ativan) 0.5 mg PO BID PRN nausea and 06/19/22 vomiting #10 tabs diazepam 5 mg tablet (Valium) 5 mg PO BID-QID PRN muscle spasm 08/08/22 #10 tabs hydrocodone 5 mg-acetaminophen 325 1 tab PO Q4-6H PRN pain #10 tabs 08/08/22 mg tablet ketorolac 10 mg tablet 10 mg PO Q6H PRN pain #14 tabs 08/08/22 lidocaine 5 % topical patch 1 patch topical DAILY #15 ea 08/08/22 (Lidoderm) furosemide 20 mg tablet (Lasix) 20 mg PO DAILY #3 tabs 01/23/23 isosorbide mononitrate 30 mg 30 mg PO DAILY #30 tabs 01/24/23 tablet,extended release 24 hr diazepam 5 mg tablet (Valium) 5 mg PO BID-QID PRN muscle spasm 03/12/23 #10 tabs hydrocodone 5 mg-acetaminophen 325 1 tab PO Q4-6H PRN pain #10 tabs 03/12/23 mg tablet methylprednisolone 4 mg tablets in See Rx Instructions PO .COMPLEX 03/12/23 a dose pack (Medrol (Jabier)) #21 ea hydrocodone 5 mg-acetaminophen 325 1 tab PO QID PRN pain #10 tabs 09/11/23 mg tablet ondansetron 4 mg disintegrating 4 mg PO Q8H PRN nausea and 09/17/23 tablet vomiting #10 tabs metoclopramide HCl 10 mg tablet 10 mg PO Q6H PRN nausea and 09/19/23 (Reglan) vomiting #14 tabs morphine 15 mg immediate release 15 mg PO Q6H PRN pain #10 tabs 09/19/23 tablet morphine 15 mg immediate release 15 mg PO Q6H PRN pain #15 tabs 09/19/23 tablet naloxone 4 mg/actuation nasal 4 mg intranasal Q2M #2 ea 09/19/23 spray (Narcan) Allergies Allergy/AdvReac Type Severity Reaction Status Date / Time lisinopril Allergy Severe Anaphylaxis Verified 10/04/23 10:00 metformin AdvReac Vomiting Verified 10/04/23 10:00 Patient History Medical History UTI (urinary tract infection) Facet arthropathy, lumbar Atrial fibrillation Lumbar radiculopathy Tinnitus Nose fracture (~06/29/21) HLD (hyperlipidemia) Heart murmur Chronic pancreatitis Depression Chronic back pain Breast cancer Migraine headache Hypothyroidism Hypertension Surgical History Hx of tonsillectomy History of colonoscopy Hx of oophorectomy History of hysterectomy Hx of breast surgery Hx of cholecystectomy Family History Father Brain tumor Congestive heart failure Mother Hypertension Stroke Grandfather Stroke Social History household members: spouse Smoking Status: Former smoker alcohol intake: current Smoking Status: Former smoker tobacco type: cigarettes alcohol intake frequency: a few times a month Alcohol type: wine Substance Use Type: does not use Exam Initial Vital Signs Initial Vital Signs: Vital Signs Temperature 97.6 F 10/04/23 09:56 Pulse Rate 82 10/04/23 09:56 Respiratory Rate 16 10/04/23 09:56 Blood Pressure 114/92 H 10/04/23 09:56 Pulse Oximetry 99 10/04/23 09:56 Oxygen Delivery Method Room Air 10/04/23 09:56 GENERAL: Alert 73-year-old female appears to be in pain HEENT: Head atraumatic,EOMI, pupils reactive, neck supple no meningeal signs CARDIOVASCULAR: Regular rate and rhythm without murmurs, rubs or gallops. RESPIRATORY: Breath sounds equal bilaterally, no wheezes rales or rhonchi. ABDOMEN: Soft, nontender. Normoactive bowel sounds all 4 quadrants. No guarding or rebound. EXTREMITIES: Normal range of motion, no clubbing or edema. Neurovascularly intact NEUROLOGICAL: Alert and oriented x4.Normal gait and speech. Cranial nerves II through XII grossly intact. SKIN: Warm, dry, no laceration, no petechiae, no rashes or lesions. Course Orders Ordered: ED Orders 10/04/23 10:23 CBC Auto Diff [Complete Blood Count AUTO DIFF] Stat 10/04/23 10:43 Urine Microscopic Stat 10/04/23 11:05 CMP [Comprehensive Metabolic Panel] Stat Discontinued Medications Diphenhydramine HCl (Diphenhydramine 50 Mg/Ml Vial) 25 mg IV NOW ONE Stop: 10/04/23 10:08 Last Admin: 10/04/23 10:35 Dose: 25 mg Documented By: BEVERLY Hydromorphone HCl (Hydromorphone 0.5 Mg Inj) 0.5 mg IV NOW ONE Stop: 10/04/23 12:00 Last Admin: 10/04/23 12:08 Dose: 0.5 mg Documented By: BEVERLY Sodium Chloride (Normal Saline 0.9%) 1,000 mls @ 1,000 mls/hr IV BOLUS ONE Stop: 10/04/23 11:00 Last Infusion: 10/04/23 11:40 Dose: Infused Documented By: Admin: 10/04/23 10:34 Dose: 1,000 mls/hr Documented By: BEVERLY Ketorolac Tromethamine (Ketorolac 30 Mg/Ml Vial) 30 mg IV NOW ONE Stop: 10/04/23 10:02 Last Admin: 10/04/23 10:09 Dose: Not Given Documented By: BEVERLY Ketorolac Tromethamine (Ketorolac 30 Mg/Ml Vial) 30 mg IV NOW ONE Stop: 10/04/23 10:08 Last Admin: 10/04/23 10:36 Dose: 30 mg Documented By: BEVERLY Ondansetron HCl (Ondansetron 4 Mg/2 Ml Inj) 4 mg IV NOW ONE Stop: 10/04/23 10:02 Last Admin: 10/04/23 10:09 Dose: Not Given Documented By: BEVERLY Prochlorperazine (Prochlorperazine 10 Mg/2 Ml Vial) 10 mg IV NOW ONE Stop: 10/04/23 10:08 Last Admin: 10/04/23 10:38 Dose: 10 mg Documented By: BEVERLY Vital Signs Vital signs: Vital Signs - 8 hr 10/04/23 09:56 10/04/23 10:05 10/04/23 10:06 Temperature 97.6 F Pulse Rate 82 65 Respiratory Rate 16 Blood Pressure 114/92 H 142/72 H Pulse Oximetry 99 Oxygen Delivery Method Room Air 10/04/23 10:06 10/04/23 10:38 10/04/23 10:38 Temperature Pulse Rate 68 83 73 Respiratory Rate Blood Pressure 149/70 H Pulse Oximetry 99 98 Oxygen Delivery Method 10/04/23 10:39 10/04/23 10:39 10/04/23 11:00 Temperature Pulse Rate 71 Respiratory Rate 20 Blood Pressure 149/70 H 142/63 H Pulse Oximetry 99 Oxygen Delivery Method 10/04/23 11:00 10/04/23 11:30 10/04/23 11:30 Temperature Pulse Rate 66 83 Respiratory Rate 18 Blood Pressure 140/65 Pulse Oximetry 97 98 Oxygen Delivery Method Room Air 10/04/23 12:00 10/04/23 12:00 10/04/23 12:12 Temperature Pulse Rate 81 Respiratory Rate 14 Blood Pressure 140/67 138/71 Pulse Oximetry 99 Oxygen Delivery Method Room Air 10/04/23 12:12 10/04/23 12:23 10/04/23 12:30 Temperature Pulse Rate 85 81 Respiratory Rate 16 Blood Pressure 109/55 L Pulse Oximetry 98 97 Oxygen Delivery Method 10/04/23 12:32 10/04/23 12:55 Temperature Pulse Rate 84 75 Respiratory Rate 16 Blood Pressure 109/55 L Pulse Oximetry 100 96 Oxygen Delivery Method Room Air MDM - Headache Lab Data 10/04/23 10:23 10/04/23 11:05 Labs: Lab Results 10/04/23 10/04/23 10/04/23 Range/Units 10:23 10:43 11:05 WBC 9.4 (4.5-11.0) X10^3/uL RBC 5.31 H (4.0-5.2) X10^6/uL Hgb 16.7 H (12.0-16.0) g/dL Hct 51.2 H (36-46) % MCV 96.3 (80-100) fL MCH 31.4 (26-34) PG MCHC 32.6 (30-36) % RDW 14.4 (11.6-14.8) % Plt Count 203 (150-400) X10^3/uL Neut % (Auto) 72.8 (50-75) % Lymph % (Auto) 19.1 L (25-40) % [place] % (Auto) 7.0 (3-14) % Eos % (Auto) 0.5 L (2-4) % Baso % (Auto) 0.6 (0-2) % Neut # (Auto) 6800 (1833-4959) /uL Lymph # (Auto) 1800 (9881-9321) /uL [place] # (Auto) 700 (0-900) /uL Eos # (Auto) 0 (0-450) /uL Baso # (Auto) 100 (0-100) /uL Sodium 138 (137-145) mmol/L Potassium 4.3 (3.4-5.1) mmol/L Chloride 107 (98-107) mmol/L Carbon Dioxide 22 (22-32) mmol/L BUN 15 (7-17) mg/dL Creatinine 1.06 H (0.52-1.04) mg/dL Estimated GFR 55 L (>60) mL/min BUN/Creatinine Ratio 14.2 (6-22) Glucose 108 (80-110) mg/dL Calcium 10.0 (8.4-10.2) mg/dL Total Bilirubin 1.0 (0.2-1.3) mg/dL AST TNP ALT 23 (<35) IU/L Alkaline Phosphatase 81 (38-126) U/L Total Protein 6.9 (6.3-8.2) g/dL Albumin 4.2 (3.5-5.0) g/dL Globulin 2.7 (1.7-4.1) g/dL Albumin/Globulin Ratio 1.6 (1.0-2.8) Urine RBC 1-5/hpf (0-5/HPF) Urine WBC None seen (0-5/HPF) Ur Squamous Epith Cells 1-5 /hpf (0-5/HPF) Urine Bacteria None seen (None) Ur Culture Indicated? Cult not indicated Urine Dip Bedside Urine Glucose 1000 mg/dl Bedside Urine Bilirubin + 1 Bedside Urine Ketone +/- 5 Urine Specific [place] 1.020 Bedside Urine Occult Blood ++ Bedside Urine pH 5.5 Bedside Urine Protein - Negative Bedside Urine Urobilinogen - Negative Bedside Urine Nitrite - Negative Bedside Urine Leukocytes - Negative Esterase MDM Narrative Medical decision making narrative: Patient 73-year-old female history migraine headaches presents today with a similar migraine. She tried some Tylenol and medication at home but it was not quite working. She has previously been to the ER handful of times with migraine headaches. No focal deficits not worst headache of her life. She initially was given migraine cocktail prior to knowing if she was on Eliquis still having pain but it did help. And she received Dilaudid which actually helped a lot. Blood work reviewed overall reassuring, mildly hemoconcentrated with hemoglobin of 16.7 hematocrit of 51, creatinine 1.0 previously 1.1 no electrolyte abnormality No need for imaging headache is similar to all previous migraine headaches Discharge Plan Departure Patient Disposition: Home Clinical Impression: Headache, migraine Instructions: DI for Migraine Activity Restrictions/Additional Instructions: *You have been diagnosed with migraine headache *What to do: I hope you start to feel better continue to hydrate and rest *Continue to take medications as directed *Follow up with your primary care provider in 2-3 days or call [phone] *Return to ER if you should have worsening headache nausea vomiting numbness tingling [or] any new, worsening or concerning symptoms Prescriptions: No Action aspirin 81 mg Tablet,Chewable 81 mg PO QAM ondansetron 4 mg tablet,disintegrating 4 mg PO Q8H PRN (Reason: nausea and vomiting) Qty: 10 0RF furosemide 20 mg Tablet 10 mg PO QAM [id number] [Fioricet] 50-300-40 mg capsule 1 cap PO Q6H PRN (Reason: pain) Qty: 10 0RF ondansetron 4 mg tablet,disintegrating 4 mg PO Q6-8H PRN (Reason: nausea and vomiting) Qty: 10 0RF rizatriptan [Maxalt] 10 mg tablet 10 mg PO Q2-4H PRN (Reason: migraine headache) Qty: 10 0RF Rx Instructions: do not exceed 3 doses per 24 hrs furosemide [Lasix] 20 mg tablet 20 mg PO DAILY Qty: 3 0RF ondansetron 4 mg tablet,disintegrating 4 mg PO Q8H PRN (Reason: nausea and vomiting) Qty: 10 0RF multivitamin Tablet 1 tab PO DAILY Qty: 0 atenolol 25 mg Tablet 25 mg PO DAILY levothyroxine [Synthroid] 150 mcg Tablet 150 mcg PO DAILY ezetimibe 10 mg Tablet 10 mg PO DAILY omega-3 fatty acids-vitamin E 1,000 mg Capsule 1 cap PO DAILY tramadol 50 mg tablet 50 mg PO Q8H PRN (Reason: pain) Qty: 14 0RF prednisone 20 mg tablet 40 mg PO DAILY Qty: 10 0RF rimegepant 75 mg tablet,disintegrating 75 mg PO Q OTHER DAY PRN (Reason: migraine headache) Qty: 10 0RF nortriptyline 10 mg capsule 10 mg PO BEDTIME Qty: 30 0RF metoclopramide HCl [Reglan] 10 mg tablet 10 mg PO Q6H PRN (Reason: nausea and vomiting) Qty: 14 0RF lorazepam [Ativan] 0.5 mg tablet 0.5 mg PO BID PRN (Reason: nausea and vomiting) Qty: 10 0RF hydrocodone-acetaminophen 5-325 mg tablet 1 tab PO Q4-6H PRN (Reason: pain) Qty: 10 0RF ketorolac 10 mg tablet 10 mg PO Q6H PRN (Reason: pain) Qty: 14 0RF lidocaine [Lidoderm] 5 % adhesive patch,medicated 1 patch TOP DAILY Qty: 15 0RF Rx Instructions: leave on most painful area for 12 hrs diazepam [Valium] 5 mg tablet 5 mg PO BID-QID PRN (Reason: muscle spasm) Qty: 10 0RF isosorbide mononitrate 30 mg tablet extended release 24 hr 30 mg PO DAILY Qty: 30 0RF hydrocodone-acetaminophen 5-325 mg tablet 1 tab PO Q4-6H PRN (Reason: pain) Qty: 10 0RF methylprednisolone [Medrol (Jabier)] 4 mg tablets,dose pack See Rx Instructions .ROUTE .COMPLEX Qty: 21 0RF Rx Instructions: orally per package directions diazepam [Valium] 5 mg tablet 5 mg PO BID-QID PRN (Reason: muscle spasm) Qty: 10 0RF hydrocodone-acetaminophen 5-325 mg tablet 1 tab PO QID PRN (Reason: pain) Qty: 10 0RF morphine 15 mg tablet 15 mg PO Q6H PRN (Reason: pain) Qty: 10 0RF naloxone [Narcan] 4 mg/actuation spray,non-aerosol 4 mg intranasal Q2M Qty: 2 0RF Rx Instructions: spray 1 dose into ONE nostril; alternate nostrils w each dose until help arrives metoclopramide HCl [Reglan] 10 mg tablet 10 mg PO Q6H PRN (Reason: nausea and vomiting) Qty: 14 0RF morphine 15 mg tablet 15 mg PO Q6H PRN (Reason: pain) Qty: 15 0RF potassium chloride 10 mEq capsule, extended release 20 meq PO DAILY cholecalciferol (vitamin D3) 50 mcg (2,000 unit) capsule 50 mcg PO DAILY Eliquis 5 mg tablet 5 mg PO BID Referrals: Yuli Lang PA-C [Primary Care Provider] - Stand Alone Forms: Patient Portal/API
[2023-10-04] MEDS: HYDROMORPHONE 0.5 MG INJ IV (12:08)
[2023-10-07 15:47] LABS: HEMOLYSIS 25 (0-50)
[2023-10-07 15:49] LABS: Aspartate Aminotransferase 36 IU/L (14-36)
== END 2023-10-04 12:55 | disposition home or self-care (01) ==
PROVIDERS: Emergency Provider Emergency Medicine; PCP Physician Assistant
DX: G43.909 Migraine, unspecified, not intractable, without status migrainosus (principal)
CPT/HCPCS: 36415; 80053; 81003; 81015; 85025; 96374; 96375; 99284; J0780; J1170; J1200; J1885

== ENCOUNTER 2023-10-06 15:49 | Emergency (ER) | payer MEDICARE, OTHER, SELFPAY ==
[2021-06-25 17:33] VITALS: BMI 28.1
[2023-10-06 16:05] VITALS: BP 136/85; PULSE 72; RESP 18; TEMP 36.6; O2SAT 96; BMI 25.0
--- NOTE | 2023-10-06 17:26 | DI.CT.S_ITS ---
PROCEDURE: CT HEAD/BRAIN WO CON INDICATIONS: Persistent headache/migraine on Eliquis TECHNIQUE: Noncontrast 4.5 mm thick angled axial sections acquired from the foramen magnum to the vertex, with coronal and sagittal reformats. For radiation dose reduction, the following was used: automated exposure control, adjustment of mA and/or kV according to patient size. COMPARISON: [facility], CT, CT HEAD/BRAIN WO CON, 09/11/2023, 10:20. FINDINGS: Image quality: Diagnostic. CSF spaces: Basal cisterns are patent. No extra-axial fluid collections. The ventricles are symmetric in size and shape. Brain: No intracranial bleeds or masses. There is cerebral volume loss for age, with resultant ventricular and sulcal prominence. There are periventricular and deep white matter chronic small vessel ischemic changes. There is intracranial internal carotid artery atherosclerosis. Skull and face: Calvarium and visualized facial bones appear intact, without suspicious lesions. Sinuses: Small mucous retention material in the right maxillary sinus. mastoids are clear. IMPRESSION: 1. No acute intracranial abnormalities. 2. Cerebral volume loss and chronic microvascular ischemic changes. 3. Right maxillary sinus disease. Dictated by: Souleymane Interiano M.D. on 10/06/2023 at 17:44 Approved by: Souleymane Interiano M.D. on 10/06/2023 at 17:45
[2023-10-06] MEDS: ACETAMINOPHEN IV 1,000 MG/100 ML VIAL 400 MG IV (18:03)
[2023-10-06] MEDS: SODIUM CHLORIDE 0.9% 1,000 ML 1000 ML IV (18:04)
[2023-10-06] MEDS: diphenhydrAMINE 50 MG/ML VIAL 25 MG IV (18:05)
[2023-10-06] MEDS: METOCLOPRAMIDE 10 MG/2 ML INJ IV (18:05)
[2023-10-06] MEDS: methylPREDNISolone 125 MG/2 ML VIAL IV (18:06)
--- NOTE | 2023-10-06 18:16 | ED_ITS ---
HPI - Headache General Chief Complaint: Headache Stated Complaint: migraine Time Seen by Provider: 10/06/23 17:25 Mode of arrival: Ambulatory History of Present Illness HPI Narrative: 73-year-old female who presents with recurrent migraine headache. Patient repor ts latest episode began around midnight yesterday and consistent with prior migraine headaches. Pain is described as a dull, throbbing ache that is mainly localized to the right side of her face. Patient reports several days ago she had another episode of migraine. Patient states that she has not had migraine headaches for at least 6-8 months. Imaging done previously not suggestive acute disease. Patient reports being in her usual state of health prior to symptom onset. Patient arrives via private vehicle. Patient is ambulatory awake, alert, in no apparent distress and maintaining her own airway. Related Data Home Medications Medication Instructions Recorded Confirmed aspirin 81 mg chewable tablet 81 mg PO QAM 07/26/20 12/23/21 atenolol 25 mg tablet 25 mg PO DAILY 06/25/21 12/23/21 ezetimibe 10 mg tablet 10 mg PO DAILY 06/25/21 12/23/21 levothyroxine 150 mcg tablet 150 mcg PO DAILY 06/25/21 12/23/21 (Synthroid) multivitamin 1 tab PO DAILY ##0 06/25/21 12/23/21 omega-3 fatty acids-vitamin E 1 cap PO DAILY 06/25/21 12/23/21 1,000 mg capsule furosemide 20 mg tablet 10 mg PO QAM 07/09/21 12/23/21 apixaban 5 mg tablet (Eliquis) 5 mg PO BID 07/22/21 12/23/21 cholecalciferol (vitamin D3) 50 50 mcg PO DAILY 07/22/21 12/23/21 mcg (2,000 unit) capsule potassium chloride 10 mEq 20 meq PO DAILY 07/22/21 12/23/21 capsule,extended release Previous Rx's Medication Instructions Recorded ondansetron 4 mg disintegrating 4 mg PO Q8H PRN nausea and 06/24/21 tablet vomiting #10 tabs tramadol 50 mg tablet 50 mg PO Q8H PRN pain #14 tabs 02/28/22 [id number] 1 cap PO Q6H PRN pain #10 caps 05/30/22 50 mg-300 mg-40 mg capsule (Fioricet) ondansetron 4 mg disintegrating 4 mg PO Q6-8H PRN nausea and 06/15/22 tablet vomiting #10 tabs rizatriptan 10 mg tablet (Maxalt) 10 mg PO Q2-4H PRN migraine 06/16/22 headache #10 tabs nortriptyline 10 mg capsule 10 mg PO BEDTIME #30 caps 06/17/22 prednisone 20 mg tablet 40 mg (2 x 20 mg) PO DAILY #10 tabs 06/17/22 rimegepant 75 mg disintegrating 75 mg PO Q OTHER DAY PRN migraine 06/17/22 tablet headache #10 tabs metoclopramide HCl 10 mg tablet 10 mg PO Q6H PRN nausea and 06/18/22 (Reglan) vomiting #14 tabs lorazepam 0.5 mg tablet (Ativan) 0.5 mg PO BID PRN nausea and 06/19/22 vomiting #10 tabs diazepam 5 mg tablet (Valium) 5 mg PO BID-QID PRN muscle spasm 08/08/22 #10 tabs hydrocodone 5 mg-acetaminophen 325 1 tab PO Q4-6H PRN pain #10 tabs 08/08/22 mg tablet ketorolac 10 mg tablet 10 mg PO Q6H PRN pain #14 tabs 08/08/22 lidocaine 5 % topical patch 1 patch topical DAILY #15 ea 08/08/22 (Lidoderm) furosemide 20 mg tablet (Lasix) 20 mg PO DAILY #3 tabs 01/23/23 isosorbide mononitrate 30 mg 30 mg PO DAILY #30 tabs 01/24/23 tablet,extended release 24 hr diazepam 5 mg tablet (Valium) 5 mg PO BID-QID PRN muscle spasm 03/12/23 #10 tabs hydrocodone 5 mg-acetaminophen 325 1 tab PO Q4-6H PRN pain #10 tabs 03/12/23 mg tablet methylprednisolone 4 mg tablets in See Rx Instructions PO .COMPLEX 03/12/23 a dose pack (Medrol (Jabier)) #21 ea hydrocodone 5 mg-acetaminophen 325 1 tab PO QID PRN pain #10 tabs 09/11/23 mg tablet ondansetron 4 mg disintegrating 4 mg PO Q8H PRN nausea and 09/17/23 tablet vomiting #10 tabs metoclopramide HCl 10 mg tablet 10 mg PO Q6H PRN nausea and 09/19/23 (Reglan) vomiting #14 tabs morphine 15 mg immediate release 15 mg PO Q6H PRN pain #10 tabs 09/19/23 tablet morphine 15 mg immediate release 15 mg PO Q6H PRN pain #15 tabs 09/19/23 tablet naloxone 4 mg/actuation nasal 4 mg intranasal Q2M #2 ea 09/19/23 spray (Narcan) Allergies Allergy/AdvReac Type Severity Reaction Status Date / Time lisinopril Allergy Severe Anaphylaxis Verified 10/07/23 10:21 metformin AdvReac Vomiting Verified 10/07/23 10:21 Review of Systems Review of Systems Narrative: Negative ten point review of systems. See HPI for pertinent positives Patient History Medical History UTI (urinary tract infection) Facet arthropathy, lumbar Atrial fibrillation Lumbar radiculopathy Tinnitus Nose fracture (~06/29/21) HLD (hyperlipidemia) Heart murmur Chronic pancreatitis Depression Chronic back pain Breast cancer Migraine headache Hypothyroidism Hypertension Surgical History Hx of tonsillectomy History of colonoscopy Hx of oophorectomy History of hysterectomy Hx of breast surgery Hx of cholecystectomy Family History Father Brain tumor Congestive heart failure Mother Hypertension Stroke Grandfather Stroke Social History household members: spouse Smoking Status: Former smoker alcohol intake: current Smoking Status: Former smoker tobacco type: cigarettes alcohol intake frequency: a few times a month Alcohol type: wine Substance Use Type: does not use Exam Initial Vital Signs Initial Vital Signs: Vital Signs Temperature 97.9 F 10/06/23 16:05 Pulse Rate 72 10/06/23 16:05 Respiratory Rate 18 10/06/23 16:05 Blood Pressure 136/85 10/06/23 16:05 Pulse Oximetry 96 10/06/23 16:05 Oxygen Delivery Method Room Air 10/06/23 16:05 Const General: cooperative, healthy appearing, comfortable, well developed and well groomed HENMI Head: normal to inspection, normocephalic and atraumatic Eyes General: Yes appearance normal, both eyes and all related structures Neck Neck: normal visual inspection, full ROM, no meningeal signs and trachea midline Chest Chest: normal inspection of the chest Resp Effort & Inspection: normal respiratory effort, able to speak in complete sentences and abnormal respiratory pattern Auscultation: clear to auscultation bilaterally Cardio Rate: regular rate Rhythm: regular rhythm Pulses: radial pulses present GI Inspection: normal to inspection Other: Exam deferred Back/Spine/Pelvis Back: normal to inspection Skin General: no rashes or lesions noted Neuro General: patient alert, patient awake, patient oriented x3, gait normal, moves all extremities, no meningeal signs and no focal motor deficits Extrem General: normal to inspection Psych Appearance: grossly normal and well kempt Speech and Movement: speech and movement normal Course Course Course Narrative: See MDM Orders Ordered: Discontinued Medications Diphenhydramine HCl (Diphenhydramine 50 Mg/Ml Vial) 25 mg IV NOW ONE Stop: 10/06/23 17:27 Last Admin: 10/06/23 18:05 Dose: 25 mg Documented By: NELY Hydromorphone HCl (Hydromorphone 0.5 Mg Inj) 0.5 mg IV NOW ONE Stop: 10/06/23 19:02 Last Admin: 10/06/23 19:25 Dose: 0.5 mg Documented By: NELY Sodium Chloride (Normal Saline 0.9%) 1,000 mls @ 1,000 mls/hr IV BOLUS ONE Stop: 10/06/23 18:25 Last Infusion: 10/06/23 19:10 Dose: Infused Documented By: Admin: 10/06/23 18:04 Dose: 1,000 mls/hr Documented By: NELY Acetaminophen (Ofirmev) 1,000 mg in 100 mls @ 400 mls/hr IV NOW ONE Stop: 10/06/23 17:40 Last Infusion: 10/06/23 18:20 Dose: Infused Documented By: Admin: 10/06/23 18:03 Dose: 400 mls/hr Documented By: NELY Methylprednisolone (Methylprednisolone 125 Mg/2 Ml Vial) 125 mg IV NOW ONE Stop: 10/06/23 17:27 Last Admin: 10/06/23 18:06 Dose: 125 mg Documented By: NELY Metoclopramide HCl (Metoclopramide 10 Mg/2 Ml Inj) 10 mg IV NOW ONE Stop: 10/06/23 17:27 Last Admin: 10/06/23 18:05 Dose: 10 mg Documented By: NELY Vital Signs Vital signs: Vital Signs - 8 hr 10/06/23 16:05 Temperature 97.9 F Pulse Rate 72 Respiratory Rate 18 Blood Pressure 136/85 Pulse Oximetry 96 Oxygen Delivery Method Room Air MDM - Headache Differential Diagnosis Differential diagnosis: Likely migraine, tension headache, subarachnoid hemorrhage, headache, meningitis, sinusitis and postconcussion syndrome [facility] Narrative Medical decision making narrative: Patient presents with history of migraine headache. Current vital signs are within normal limits/nonactionable. Patient is afebrile. Pulse oximetry 97% on room air, normal pulse oximetry. IV fluids, Toradol, Reglan, Benadryl Decadron given with some improvement in symptoms. Patient reports that Dilaudid usually helps her. Dilaudid given and patient is pain-free and requesting discharge home. Patient's clinical exam is not suggestive of subarachnoid hemorrhage or meningitis. Patient able to ambulate well without assistance at time of di scharge. PCP follow-up recommended within 1 week. Return precautions given. Discharge Plan Departure Patient Disposition: Home Clinical Impression: Migraine Qualifiers: Migraine type: unspecified Status migrainosus presence: without status migrainosus Intractability: not intractable Qualified Code(s): G43.909 - Migraine, unspecified, not intractable, without status migrainosus Instructions: DI for Migraine Prescriptions: No Action aspirin 81 mg Tablet,Chewable 81 mg PO QAM ondansetron 4 mg tablet,disintegrating 4 mg PO Q8H PRN (Reason: nausea and vomiting) Qty: 10 0RF furosemide 20 mg Tablet 10 mg PO QAM [id number] [Fioricet] 50-300-40 mg capsule 1 cap PO Q6H PRN (Reason: pain) Qty: 10 0RF ondansetron 4 mg tablet,disintegrating 4 mg PO Q6-8H PRN (Reason: nausea and vomiting) Qty: 10 0RF rizatriptan [Maxalt] 10 mg tablet 10 mg PO Q2-4H PRN (Reason: migraine headache) Qty: 10 0RF Rx Instructions: do not exceed 3 doses per 24 hrs furosemide [Lasix] 20 mg tablet 20 mg PO DAILY Qty: 3 0RF ondansetron 4 mg tablet,disintegrating 4 mg PO Q8H PRN (Reason: nausea and vomiting) Qty: 10 0RF multivitamin Tablet 1 tab PO DAILY Qty: 0 atenolol 25 mg Tablet 25 mg PO DAILY levothyroxine [Synthroid] 150 mcg Tablet 150 mcg PO DAILY ezetimibe 10 mg Tablet 10 mg PO DAILY omega-3 fatty acids-vitamin E 1,000 mg Capsule 1 cap PO DAILY tramadol 50 mg tablet 50 mg PO Q8H PRN (Reason: pain) Qty: 14 0RF prednisone 20 mg tablet 40 mg PO DAILY Qty: 10 0RF rimegepant 75 mg tablet,disintegrating 75 mg PO Q OTHER DAY PRN (Reason: migraine headache) Qty: 10 0RF nortriptyline 10 mg capsule 10 mg PO BEDTIME Qty: 30 0RF metoclopramide HCl [Reglan] 10 mg tablet 10 mg PO Q6H PRN (Reason: nausea and vomiting) Qty: 14 0RF lorazepam [Ativan] 0.5 mg tablet 0.5 mg PO BID PRN (Reason: nausea and vomiting) Qty: 10 0RF hydrocodone-acetaminophen 5-325 mg tablet 1 tab PO Q4-6H PRN (Reason: pain) Qty: 10 0RF ketorolac 10 mg tablet 10 mg PO Q6H PRN (Reason: pain) Qty: 14 0RF lidocaine [Lidoderm] 5 % adhesive patch,medicated 1 patch TOP DAILY Qty: 15 0RF Rx Instructions: leave on most painful area for 12 hrs diazepam [Valium] 5 mg tablet 5 mg PO BID-QID PRN (Reason: muscle spasm) Qty: 10 0RF isosorbide mononitrate 30 mg tablet extended release 24 hr 30 mg PO DAILY Qty: 30 0RF hydrocodone-acetaminophen 5-325 mg tablet 1 tab PO Q4-6H PRN (Reason: pain) Qty: 10 0RF methylprednisolone [Medrol (Jabier)] 4 mg tablets,dose pack See Rx Instructions .ROUTE .COMPLEX Qty: 21 0RF Rx Instructions: orally per package directions diazepam [Valium] 5 mg tablet 5 mg PO BID-QID PRN (Reason: muscle spasm) Qty: 10 0RF hydrocodone-acetaminophen 5-325 mg tablet 1 tab PO QID PRN (Reason: pain) Qty: 10 0RF morphine 15 mg tablet 15 mg PO Q6H PRN (Reason: pain) Qty: 10 0RF naloxone [Narcan] 4 mg/actuation spray,non-aerosol 4 mg intranasal Q2M Qty: 2 0RF Rx Instructions: spray 1 dose into ONE nostril; alternate nostrils w each dose until help arrives metoclopramide HCl [Reglan] 10 mg tablet 10 mg PO Q6H PRN (Reason: nausea and vomiting) Qty: 14 0RF morphine 15 mg tablet 15 mg PO Q6H PRN (Reason: pain) Qty: 15 0RF potassium chloride 10 mEq capsule, extended release 20 meq PO DAILY cholecalciferol (vitamin D3) 50 mcg (2,000 unit) capsule 50 mcg PO DAILY Eliquis 5 mg tablet 5 mg PO BID Referrals: Yuli Lang PA-C [Primary Care Provider] - Stand Alone Forms: Patient Portal/API
[2023-10-06] MEDS: HYDROMORPHONE 0.5 MG INJ IV (19:25)
[2023-10-06 19:56] VITALS: BP 156/92; PULSE 62; O2SAT 98
== END 2023-10-06 20:23 | disposition home or self-care (01) ==
PROVIDERS: Emergency Provider Emergency Medicine; PCP Physician Assistant
DX: G43.909 Migraine, unspecified, not intractable, without status migrainosus (principal); Z79.899 Other long term (current) drug therapy
CPT/HCPCS: 70450; 96365; 96375; 99283; 99284; J0136; J1170; J1200; J2765; J2930

== ENCOUNTER 2023-10-07 10:12 | Emergency (ER) | payer MEDICARE, OTHER, SELFPAY ==
[2021-06-25 17:33] VITALS: BMI 28.1
[2023-10-07 10:13] VITALS: BP 155/91; PULSE 115; RESP 15; TEMP 36.1; O2SAT 98; BMI 25.0
--- NOTE | 2023-10-07 10:33 | ED.HA ---
HPI - Headache General Chief Complaint: Headache Stated Complaint: migrane just here yesterday Time Seen by Provider: 10/07/23 10:17 Source: patient Mode of arrival: Ambulatory History of Present Illness HPI Narrative: Patient is a 73-year-old female. She has a history of migraines. Is on Topamax for these medications. She was also on apixaban for atrial fibrillation. She states that approximately once a year she gets a migraine headache that normally lasts for several days and then gradually goes away. During this time she gets vision changes in her right eye and a right-sided headache. She states during this time her Topamax also does not help any of her symptoms. She states that is what is going on now. Has a same thing has been going on the past couple days. The last 2 times that she has been here in the medications that she was received here in the emergency department has helped her symptoms but then symptoms return as the day goes on. She had a head CT yesterday that was unremarkable. She returns today for the same headache that she has been having. No fevers. No chest pain. No shortness of breath. Related Data Home Medications Medication Instructions Recorded Confirmed aspirin 81 mg chewable tablet 81 mg PO QAM 07/26/20 12/23/21 atenolol 25 mg tablet 25 mg PO DAILY 06/25/21 12/23/21 ezetimibe 10 mg tablet 10 mg PO DAILY 06/25/21 12/23/21 levothyroxine 150 mcg tablet 150 mcg PO DAILY 06/25/21 12/23/21 (Synthroid) multivitamin 1 tab PO DAILY ##0 06/25/21 12/23/21 omega-3 fatty acids-vitamin E 1 cap PO DAILY 06/25/21 12/23/21 1,000 mg capsule furosemide 20 mg tablet 10 mg PO QAM 07/09/21 12/23/21 apixaban 5 mg tablet (Eliquis) 5 mg PO BID 07/22/21 12/23/21 cholecalciferol (vitamin D3) 50 50 mcg PO DAILY 07/22/21 12/23/21 mcg (2,000 unit) capsule potassium chloride 10 mEq 20 meq PO DAILY 07/22/21 12/23/21 capsule,extended release Previous Rx's Medication Instructions Recorded ondansetron 4 mg disintegrating 4 mg PO Q8H PRN nausea and 06/24/21 tablet vomiting #10 tabs tramadol 50 mg tablet 50 mg PO Q8H PRN pain #14 tabs 02/28/22 [id number]-vnrjgjoc 1 cap PO Q6H PRN pain #10 caps 05/30/22 50 mg-300 mg-40 mg capsule (Fioricet) ondansetron 4 mg disintegrating 4 mg PO Q6-8H PRN nausea and 06/15/22 tablet vomiting #10 tabs rizatriptan 10 mg tablet (Maxalt) 10 mg PO Q2-4H PRN migraine 06/16/22 headache #10 tabs nortriptyline 10 mg capsule 10 mg PO BEDTIME #30 caps 06/17/22 prednisone 20 mg tablet 40 mg (2 x 20 mg) PO DAILY #10 tabs 06/17/22 rimegepant 75 mg disintegrating 75 mg PO Q OTHER DAY PRN migraine 06/17/22 tablet headache #10 tabs metoclopramide HCl 10 mg tablet 10 mg PO Q6H PRN nausea and 06/18/22 (Reglan) vomiting #14 tabs lorazepam 0.5 mg tablet (Ativan) 0.5 mg PO BID PRN nausea and 06/19/22 vomiting #10 tabs diazepam 5 mg tablet (Valium) 5 mg PO BID-QID PRN muscle spasm 08/08/22 #10 tabs hydrocodone 5 mg-acetaminophen 325 1 tab PO Q4-6H PRN pain #10 tabs 08/08/22 mg tablet ketorolac 10 mg tablet 10 mg PO Q6H PRN pain #14 tabs 08/08/22 lidocaine 5 % topical patch 1 patch topical DAILY #15 ea 08/08/22 (Lidoderm) furosemide 20 mg tablet (Lasix) 20 mg PO DAILY #3 tabs 01/23/23 isosorbide mononitrate 30 mg 30 mg PO DAILY #30 tabs 01/24/23 tablet,extended release 24 hr diazepam 5 mg tablet (Valium) 5 mg PO BID-QID PRN muscle spasm 03/12/23 #10 tabs hydrocodone 5 mg-acetaminophen 325 1 tab PO Q4-6H PRN pain #10 tabs 03/12/23 mg tablet methylprednisolone 4 mg tablets in See Rx Instructions PO .COMPLEX 03/12/23 a dose pack (Medrol (Jabier)) #21 ea hydrocodone 5 mg-acetaminophen 325 1 tab PO QID PRN pain #10 tabs 09/11/23 mg tablet ondansetron 4 mg disintegrating 4 mg PO Q8H PRN nausea and 09/17/23 tablet vomiting #10 tabs metoclopramide HCl 10 mg tablet 10 mg PO Q6H PRN nausea and 09/19/23 (Reglan) vomiting #14 tabs morphine 15 mg immediate release 15 mg PO Q6H PRN pain #10 tabs 09/19/23 tablet morphine 15 mg immediate release 15 mg PO Q6H PRN pain #15 tabs 09/19/23 tablet naloxone 4 mg/actuation nasal 4 mg intranasal Q2M #2 ea 09/19/23 spray (Narcan) Allergies Allergy/AdvReac Type Severity Reaction Status Date / Time lisinopril Allergy Severe Anaphylaxis Verified 10/07/23 10:21 metformin AdvReac Vomiting Verified 10/07/23 10:21 Review of Systems Review of Systems ROS Unobtainable: All systems reviewed & are unremarkable except as noted in HPI and below Patient History Medical History UTI (urinary tract infection) Facet arthropathy, lumbar Atrial fibrillation Lumbar radiculopathy Tinnitus Nose fracture (~06/29/21) HLD (hyperlipidemia) Heart murmur Chronic pancreatitis Depression Chronic back pain Breast cancer Migraine headache Hypothyroidism Hypertension Surgical History Hx of tonsillectomy History of colonoscopy Hx of oophorectomy History of hysterectomy Hx of breast surgery Hx of cholecystectomy Family History Father Brain tumor Congestive heart failure Mother Hypertension Stroke Grandfather Stroke Social History household members: spouse Smoking Status: Former smoker alcohol intake: current Smoking Status: Former smoker tobacco type: cigarettes alcohol intake frequency: a few times a month Alcohol type: wine Substance Use Type: does not use Exam Initial Vital Signs Initial Vital Signs: Vital Signs Temperature 97.0 F L 10/07/23 10:13 Pulse Rate 115 H 10/07/23 10:13 Respiratory Rate 15 10/07/23 10:13 Blood Pressure 155/91 H 10/07/23 10:13 Pulse Oximetry 98 10/07/23 10:13 Oxygen Delivery Method Room Air 10/07/23 10:13 Const General: cooperative, comfortable and No ill appearing HENMT Head: normal to inspection and normocephalic Eyes General: Yes appearance normal, both eyes and all related structures Resp Effort & Inspection: normal respiratory effort Cardio Rate: regular rate GI Inspection: normal to inspection Neuro General: patient alert, patient awake and moves all extremities Course Orders Ordered: Discontinued Medications Hydromorphone HCl (Hydromorphone 1 Mg Inj) 1 mg IV NOW ONE Stop: 10/07/23 10:34 Last Admin: 10/07/23 11:06 Dose: 1 mg Documented By: BRENDA Sodium Chloride (Normal Saline 0.9%) 1,000 mls @ 1,000 mls/hr IV BOLUS ONE Stop: 10/07/23 11:32 Last Infusion: 10/07/23 12:11 Dose: Infused Documented By: Admin: 10/07/23 10:59 Dose: 1,000 mls/hr Documented By: BRENDA Ondansetron HCl (Ondansetron 4 Mg/2 Ml Inj) 4 mg IV NOW ONE Stop: 10/07/23 11:01 Last Admin: 10/07/23 11:04 Dose: 4 mg Documented By: BRENDA Vital Signs Vital signs: Vital Signs - 8 hr 10/07/23 10:13 10/07/23 11:15 10/07/23 11:30 Temperature 97.0 F L Pulse Rate 115 H 77 82 Respiratory Rate 15 Blood Pressure 155/91 H Pulse Oximetry 98 99 99 Oxygen Delivery Method Room Air Room Air Room Air 10/07/23 11:45 10/07/23 12:00 10/07/23 12:15 Temperature Pulse Rate 75 83 68 Respiratory Rate Blood Pressure 132/69 138/73 Pulse Oximetry 98 99 99 Oxygen Delivery Method Room Air Room Air Room Air MDM - Headache MDM Narrative Medical decision making narrative: Patient reports a vast improvement if not resolution of headache after medications here in the ER. She states that normally Dilaudid helps her symptoms tremendously. No fevers. This is the same headache that she has been having for the past couple days in his the same headache that she has had in the past with her migraines. I feel that we can hold on further imaging studies for now. Will discharge patient home. Hopefully the headache cycle will break with the medications today. Advised that she contact her primary provider for a follow-up. Patient was given verbal discharge instructions do to EMR downtime. Discharge Plan Departure Patient Disposition: Home Clinical Impression: Migraine Prescriptions: No Action aspirin 81 mg Tablet,Chewable 81 mg PO QAM ondansetron 4 mg tablet,disintegrating 4 mg PO Q8H PRN (Reason: nausea and vomiting) Qty: 10 0RF furosemide 20 mg Tablet 10 mg PO QAM [id number] [Fioricet] 50-300-40 mg capsule 1 cap PO Q6H PRN (Reason: pain) Qty: 10 0RF ondansetron 4 mg tablet,disintegrating 4 mg PO Q6-8H PRN (Reason: nausea and vomiting) Qty: 10 0RF rizatriptan [Maxalt] 10 mg tablet 10 mg PO Q2-4H PRN (Reason: migraine headache) Qty: 10 0RF Rx Instructions: do not exceed 3 doses per 24 hrs furosemide [Lasix] 20 mg tablet 20 mg PO DAILY Qty: 3 0RF ondansetron 4 mg tablet,disintegrating 4 mg PO Q8H PRN (Reason: nausea and vomiting) Qty: 10 0RF multivitamin Tablet 1 tab PO DAILY Qty: 0 atenolol 25 mg Tablet 25 mg PO DAILY levothyroxine [Synthroid] 150 mcg Tablet 150 mcg PO DAILY ezetimibe 10 mg Tablet 10 mg PO DAILY omega-3 fatty acids-vitamin E 1,000 mg Capsule 1 cap PO DAILY tramadol 50 mg tablet 50 mg PO Q8H PRN (Reason: pain) Qty: 14 0RF prednisone 20 mg tablet 40 mg PO DAILY Qty: 10 0RF rimegepant 75 mg tablet,disintegrating 75 mg PO Q OTHER DAY PRN (Reason: migraine headache) Qty: 10 0RF nortriptyline 10 mg capsule 10 mg PO BEDTIME Qty: 30 0RF metoclopramide HCl [Reglan] 10 mg tablet 10 mg PO Q6H PRN (Reason: nausea and vomiting) Qty: 14 0RF lorazepam [Ativan] 0.5 mg tablet 0.5 mg PO BID PRN (Reason: nausea and vomiting) Qty: 10 0RF hydrocodone-acetaminophen 5-325 mg tablet 1 tab PO Q4-6H PRN (Reason: pain) Qty: 10 0RF ketorolac 10 mg tablet 10 mg PO Q6H PRN (Reason: pain) Qty: 14 0RF lidocaine [Lidoderm] 5 % adhesive patch,medicated 1 patch TOP DAILY Qty: 15 0RF Rx Instructions: leave on most painful area for 12 hrs diazepam [Valium] 5 mg tablet 5 mg PO BID-QID PRN (Reason: muscle spasm) Qty: 10 0RF isosorbide mononitrate 30 mg tablet extended release 24 hr 30 mg PO DAILY Qty: 30 0RF hydrocodone-acetaminophen 5-325 mg tablet 1 tab PO Q4-6H PRN (Reason: pain) Qty: 10 0RF methylprednisolone [Medrol (Jabier)] 4 mg tablets,dose pack See Rx Instructions .ROUTE .COMPLEX Qty: 21 0RF Rx Instructions: orally per package directions diazepam [Valium] 5 mg tablet 5 mg PO BID-QID PRN (Reason: muscle spasm) Qty: 10 0RF hydrocodone-acetaminophen 5-325 mg tablet 1 tab PO QID PRN (Reason: pain) Qty: 10 0RF morphine 15 mg tablet 15 mg PO Q6H PRN (Reason: pain) Qty: 10 0RF naloxone [Narcan] 4 mg/actuation spray,non-aerosol 4 mg intranasal Q2M Qty: 2 0RF Rx Instructions: spray 1 dose into ONE nostril; alternate nostrils w each dose until help arrives metoclopramide HCl [Reglan] 10 mg tablet 10 mg PO Q6H PRN (Reason: nausea and vomiting) Qty: 14 0RF morphine 15 mg tablet 15 mg PO Q6H PRN (Reason: pain) Qty: 15 0RF potassium chloride 10 mEq capsule, extended release 20 meq PO DAILY cholecalciferol (vitamin D3) 50 mcg (2,000 unit) capsule 50 mcg PO DAILY Eliquis 5 mg tablet 5 mg PO BID Referrals: Yuli Lang PA-C [Primary Care Provider] - Stand Alone Forms: Patient Portal/API
[2023-10-07] MEDS: SODIUM CHLORIDE 0.9% 1,000 ML 1000 ML IV (10:59)
[2023-10-07] MEDS: ONDANSETRON 4 MG/2 ML INJ IV (11:04)
[2023-10-07] MEDS: HYDROMORPHONE 1 MG INJ IV (11:06)
[2023-10-07 11:15] VITALS: PULSE 77; O2SAT 99
[2023-10-07 11:30] VITALS: PULSE 82; O2SAT 99
[2023-10-07 11:45] VITALS: PULSE 75; O2SAT 98
[2023-10-07 12:00] VITALS: BP 132/69; PULSE 83; O2SAT 99
[2023-10-07 12:15] VITALS: BP 138/73; PULSE 68; O2SAT 99
== END 2023-10-07 12:30 | disposition home or self-care (01) ==
PROVIDERS: Emergency Provider Emergency Medicine; PCP Physician Assistant
DX: G43.909 Migraine, unspecified, not intractable, without status migrainosus (principal); Z79.01 Long term (current) use of anticoagulants
CPT/HCPCS: 36415; 96361; 96374; 96375; 99284; J1170; J2405

== ENCOUNTER 2023-10-08 12:45 | Emergency (ER) | payer MEDICARE, OTHER, SELFPAY ==
[2021-06-25 17:33] VITALS: BMI 28.1
[2023-10-08 12:49] VITALS: BP 149/99; PULSE 73; RESP 16; TEMP 36.6; O2SAT 99; BMI 25.0
--- NOTE | 2023-10-08 13:35 | ED_ITS ---
HPI - Headache General Chief Complaint: Headache Stated Complaint: migraine Time Seen by Provider: 10/08/23 13:09 Source: patient Mode of arrival: Ambulatory Limitations: no limitations History of Present Illness HPI Narrative: Patient is a 73-year-old female. She returns to the emergency department today for the 4th time in the past week for evaluation of headache. She has received medications each time that she is here in the emergency department and left the department either headache-free or vastly improved. She has had a head CT that was unremarkable. I saw her in the emergency department yesterday. She has a history of migraine headaches that present like this. States it approximately once a year she gets a headache that lasts several days but then gradually resolves on its own. This headache that she is currently having has been going on the past couple days. When I saw her yesterday she received a mg of Dilaudid. She also received nausea medication. When she left she stated that she was feeling much improved if not completely resolved. Throughout the day yesterday she was mostly headache free. When she woke up this morning she had the discomfort behind her right eye in the headache was returning. She reports no new symptoms. It does this same headache she has been having over the past couple days and is the same headache that she has had in the past that have been diagnosed with migraines. Denies fevers. Is currently having some nausea but no vomiting. No skin rashes. Related Data Home Medications Medication Instructions Recorded Confirmed aspirin 81 mg chewable tablet 81 mg PO QAM 07/26/20 12/23/21 atenolol 25 mg tablet 25 mg PO DAILY 06/25/21 12/23/21 ezetimibe 10 mg tablet 10 mg PO DAILY 06/25/21 12/23/21 levothyroxine 150 mcg tablet 150 mcg PO DAILY 06/25/21 12/23/21 (Synthroid) multivitamin 1 tab PO DAILY ##0 06/25/21 12/23/21 omega-3 fatty acids-vitamin E 1 cap PO DAILY 06/25/21 12/23/21 1,000 mg capsule furosemide 20 mg tablet 10 mg PO QAM 07/09/21 12/23/21 apixaban 5 mg tablet (Eliquis) 5 mg PO BID 07/22/21 12/23/21 cholecalciferol (vitamin D3) 50 50 mcg PO DAILY 07/22/21 12/23/21 mcg (2,000 unit) capsule potassium chloride 10 mEq 20 meq PO DAILY 07/22/21 12/23/21 capsule,extended release Previous Rx's Medication Instructions Recorded ondansetron 4 mg disintegrating 4 mg PO Q8H PRN nausea and 06/24/21 tablet vomiting #10 tabs tramadol 50 mg tablet 50 mg PO Q8H PRN pain #14 tabs 02/28/22 [id number] 1 cap PO Q6H PRN pain #10 caps 05/30/22 50 mg-300 mg-40 mg capsule (Fioricet) ondansetron 4 mg disintegrating 4 mg PO Q6-8H PRN nausea and 06/15/22 tablet vomiting #10 tabs rizatriptan 10 mg tablet (Maxalt) 10 mg PO Q2-4H PRN migraine 06/16/22 headache #10 tabs nortriptyline 10 mg capsule 10 mg PO BEDTIME #30 caps 06/17/22 prednisone 20 mg tablet 40 mg (2 x 20 mg) PO DAILY #10 tabs 06/17/22 rimegepant 75 mg disintegrating 75 mg PO Q OTHER DAY PRN migraine 06/17/22 tablet headache #10 tabs metoclopramide HCl 10 mg tablet 10 mg PO Q6H PRN nausea and 06/18/22 (Reglan) vomiting #14 tabs lorazepam 0.5 mg tablet (Ativan) 0.5 mg PO BID PRN nausea and 06/19/22 vomiting #10 tabs diazepam 5 mg tablet (Valium) 5 mg PO BID-QID PRN muscle spasm 08/08/22 #10 tabs hydrocodone 5 mg-acetaminophen 325 1 tab PO Q4-6H PRN pain #10 tabs 08/08/22 mg tablet ketorolac 10 mg tablet 10 mg PO Q6H PRN pain #14 tabs 08/08/22 lidocaine 5 % topical patch 1 patch topical DAILY #15 ea 08/08/22 (Lidoderm) furosemide 20 mg tablet (Lasix) 20 mg PO DAILY #3 tabs 01/23/23 isosorbide mononitrate 30 mg 30 mg PO DAILY #30 tabs 01/24/23 tablet,extended release 24 hr diazepam 5 mg tablet (Valium) 5 mg PO BID-QID PRN muscle spasm 03/12/23 #10 tabs hydrocodone 5 mg-acetaminophen 325 1 tab PO Q4-6H PRN pain #10 tabs 03/12/23 mg tablet methylprednisolone 4 mg tablets in See Rx Instructions PO .COMPLEX 03/12/23 a dose pack (Medrol (Jabier)) #21 ea hydrocodone 5 mg-acetaminophen 325 1 tab PO QID PRN pain #10 tabs 09/11/23 mg tablet ondansetron 4 mg disintegrating 4 mg PO Q8H PRN nausea and 09/17/23 tablet vomiting #10 tabs metoclopramide HCl 10 mg tablet 10 mg PO Q6H PRN nausea and 09/19/23 (Reglan) vomiting #14 tabs morphine 15 mg immediate release 15 mg PO Q6H PRN pain #10 tabs 09/19/23 tablet morphine 15 mg immediate release 15 mg PO Q6H PRN pain #15 tabs 09/19/23 tablet naloxone 4 mg/actuation nasal 4 mg intranasal Q2M #2 ea 09/19/23 spray (Narcan) Allergies Allergy/AdvReac Type Severity Reaction Status Date / Time lisinopril Allergy Severe Anaphylaxis Verified 10/07/23 10:21 metformin AdvReac Vomiting Verified 10/07/23 10:21 Review of Systems Review of Systems ROS Unobtainable: All systems reviewed & are unremarkable except as noted in HPI and below Patient History Medical History UTI (urinary tract infection) Facet arthropathy, lumbar Atrial fibrillation Lumbar radiculopathy Tinnitus Nose fracture (~06/29/21) HLD (hyperlipidemia) Heart murmur Chronic pancreatitis Depression Chronic back pain Breast cancer Migraine headache Hypothyroidism Hypertension Surgical History Hx of tonsillectomy History of colonoscopy Hx of oophorectomy History of hysterectomy Hx of breast surgery Hx of cholecystectomy Family History Father Brain tumor Congestive heart failure Mother Hypertension Stroke Grandfather Stroke Social History household members: spouse Smoking Status: Former smoker alcohol intake: current Smoking Status: Former smoker tobacco type: cigarettes alcohol intake frequency: a few times a month Alcohol type: wine Substance Use Type: does not use Exam Initial Vital Signs Initial Vital Signs: Vital Signs Temperature 97.8 F 10/08/23 12:49 Pulse Rate 73 10/08/23 12:49 Respiratory Rate 16 10/08/23 12:49 Blood Pressure 149/99 H 10/08/23 12:49 Pulse Oximetry 99 10/08/23 12:49 Oxygen Delivery Method Room Air 10/08/23 12:49 Const General: cooperative, comfortable and No ill appearing HENCO Head: normal to inspection and normocephalic Eyes Other: In ocular pressure right eye 19. Interocular pressure left eye 21 Resp Effort & Inspection: normal respiratory effort Auscultation: clear to auscultation bilaterally Cardio Rate: regular rate Rhythm: regular rhythm GI Inspection: normal to inspection and non-distended Skin General: no rashes or lesions noted Neuro General: patient alert, patient awake, patient oriented x3 and moves all extremities Cognition: normal cognition Speech: speech normal Gait: normal gait Extrem General: normal to inspection Course Orders Ordered: Discontinued Medications Hydromorphone HCl (Hydromorphone 1 Mg Inj) 1 mg IV NOW ONE Stop: 10/08/23 13:37 Last Admin: 10/08/23 13:46 Dose: 1 mg Documented By: NELY Sodium Chloride (Normal Saline 0.9%) 1,000 mls @ 1,000 mls/hr IV BOLUS ONE Stop: 10/08/23 14:16 Last Infusion: 10/08/23 15:13 Dose: Infused Documented By: Admin: 10/08/23 13:46 Dose: 1,000 mls/hr Documented By: NELY Ondansetron HCl (Ondansetron 4 Mg/2 Ml Inj) 4 mg IV NOW ONE Stop: 10/08/23 13:37 Last Admin: 10/08/23 13:46 Dose: 4 mg Documented By: NELY Proparacaine HCl (Proparacaine 0.5% Ophth Ely) 1 drops EYE-BOTH NOW ONE Stop: 10/08/23 13:53 Last Admin: 10/08/23 14:02 Dose: 1 drop Documented By: NELY Vital Signs Vital signs: Vital Signs - 8 hr 10/08/23 12:49 Temperature 97.8 F Pulse Rate 73 Respiratory Rate 16 Blood Pressure 149/99 H Pulse Oximetry 99 Oxygen Delivery Method Room Air MDM - Headache MDM Narrative Medical decision making narrative: After medications the patient's headache is now a 1/10. This is exactly the situation that she was in yesterday and the past couple days after receiving medications. Patient states she was feels well enough to go home. She has al ready had a head CT. I have low suspicion for meningitis. Her intra-ocular pressures are unremarkable. She has no other neurologic symptoms that would make me think CVA. Her right eye symptoms have completely resolved as well. Hopefully this will break the cycle of the discomfort. Patient does have Tylenol at home that she can take. She was given return precautions. She expressed understanding and agreement. Discharge Plan Departure Patient Disposition: Home Clinical Impression: Migraine Instructions: DI for Migraine Activity Restrictions/Additional Instructions: Recommend that you continue to take Tylenol at home as needed. Be sure that you are staying hydrated. Return to the emergency department for new symptoms. Prescriptions: No Action aspirin 81 mg Tablet,Chewable 81 mg PO QAM ondansetron 4 mg tablet,disintegrating 4 mg PO Q8H PRN (Reason: nausea and vomiting) Qty: 10 0RF furosemide 20 mg Tablet 10 mg PO QAM [id number] [Fioricet] 50-300-40 mg capsule 1 cap PO Q6H PRN (Reason: pain) Qty: 10 0RF ondansetron 4 mg tablet,disintegrating 4 mg PO Q6-8H PRN (Reason: nausea and vomiting) Qty: 10 0RF rizatriptan [Maxalt] 10 mg tablet 10 mg PO Q2-4H PRN (Reason: migraine headache) Qty: 10 0RF Rx Instructions: do not exceed 3 doses per 24 hrs furosemide [Lasix] 20 mg tablet 20 mg PO DAILY Qty: 3 0RF ondansetron 4 mg tablet,disintegrating 4 mg PO Q8H PRN (Reason: nausea and vomiting) Qty: 10 0RF multivitamin Tablet 1 tab PO DAILY Qty: 0 atenolol 25 mg Tablet 25 mg PO DAILY levothyroxine [Synthroid] 150 mcg Tablet 150 mcg PO DAILY ezetimibe 10 mg Tablet 10 mg PO DAILY omega-3 fatty acids-vitamin E 1,000 mg Capsule 1 cap PO DAILY tramadol 50 mg tablet 50 mg PO Q8H PRN (Reason: pain) Qty: 14 0RF prednisone 20 mg tablet 40 mg PO DAILY Qty: 10 0RF rimegepant 75 mg tablet,disintegrating 75 mg PO Q OTHER DAY PRN (Reason: migraine headache) Qty: 10 0RF nortriptyline 10 mg capsule 10 mg PO BEDTIME Qty: 30 0RF metoclopramide HCl [Reglan] 10 mg tablet 10 mg PO Q6H PRN (Reason: nausea and vomiting) Qty: 14 0RF lorazepam [Ativan] 0.5 mg tablet 0.5 mg PO BID PRN (Reason: nausea and vomiting) Qty: 10 0RF hydrocodone-acetaminophen 5-325 mg tablet 1 tab PO Q4-6H PRN (Reason: pain) Qty: 10 0RF ketorolac 10 mg tablet 10 mg PO Q6H PRN (Reason: pain) Qty: 14 0RF lidocaine [Lidoderm] 5 % adhesive patch,medicated 1 patch TOP DAILY Qty: 15 0RF Rx Instructions: leave on most painful area for 12 hrs diazepam [Valium] 5 mg tablet 5 mg PO BID-QID PRN (Reason: muscle spasm) Qty: 10 0RF isosorbide mononitrate 30 mg tablet extended release 24 hr 30 mg PO DAILY Qty: 30 0RF hydrocodone-acetaminophen 5-325 mg tablet 1 tab PO Q4-6H PRN (Reason: pain) Qty: 10 0RF methylprednisolone [Medrol (Jabier)] 4 mg tablets,dose pack See Rx Instructions .ROUTE .COMPLEX Qty: 21 0RF Rx Instructions: orally per package directions diazepam [Valium] 5 mg tablet 5 mg PO BID-QID PRN (Reason: muscle spasm) Qty: 10 0RF hydrocodone-acetaminophen 5-325 mg tablet 1 tab PO QID PRN (Reason: pain) Qty: 10 0RF morphine 15 mg tablet 15 mg PO Q6H PRN (Reason: pain) Qty: 10 0RF naloxone [Narcan] 4 mg/actuation spray,non-aerosol 4 mg intranasal Q2M Qty: 2 0RF Rx Instructions: spray 1 dose into ONE nostril; alternate nostrils w each dose until help arrives metoclopramide HCl [Reglan] 10 mg tablet 10 mg PO Q6H PRN (Reason: nausea and vomiting) Qty: 14 0RF morphine 15 mg tablet 15 mg PO Q6H PRN (Reason: pain) Qty: 15 0RF potassium chloride 10 mEq capsule, extended release 20 meq PO DAILY cholecalciferol (vitamin D3) 50 mcg (2,000 unit) capsule 50 mcg PO DAILY Eliquis 5 mg tablet 5 mg PO BID Referrals: Yuli Lang PA-C [Primary Care Provider] - Stand Alone Forms: Patient Portal/API
[2023-10-08] MEDS: SODIUM CHLORIDE 0.9% 1,000 ML 1000 ML IV (13:46)
[2023-10-08] MEDS: HYDROMORPHONE 1 MG INJ IV (13:46)
[2023-10-08] MEDS: ONDANSETRON 4 MG/2 ML INJ IV (13:46)
[2023-10-08] MEDS: PROPARACAINE 0.5% OPHTH SOL 1 DROPS EYE-BOTH (14:02)
[2023-10-08 15:26] VITALS: BP 145/82; PULSE 66; O2SAT 98
== END 2023-10-08 15:26 | disposition home or self-care (01) ==
PROVIDERS: Emergency Provider Emergency Medicine; PCP Physician Assistant
DX: G43.909 Migraine, unspecified, not intractable, without status migrainosus (principal)
CPT/HCPCS: 96374; 96375; 99283; J1170; J2405

== ENCOUNTER 2023-10-09 15:20 | Emergency (ER) | payer MEDICARE, OTHER, SELFPAY ==
[2021-06-25 17:33] VITALS: BMI 28.1
[2023-10-09] VITALS (13 sets, daily range): BP systolic 123–173; BP diastolic 61–116; PULSE 69–108; RESP 8–22; TEMP 37.5; O2SAT 92–99; BMI 25.0
--- NOTE | 2023-10-09 15:59 | ED_ITS ---
HPI - Headache <Jud Palomino PA-C - Last Filed: 10/09/23 19:34> General Chief Complaint: Headache Stated Complaint: migraine Time Seen by Provider: 10/09/23 15:58 Mode of arrival: Ambulatory History of Present Illness HPI Narrative: Patient is a 73-year-old female who has reported to the emergency department 5 times in the last week for evaluation of a returning migraine. She denies numbness of her arms or legs or any weakness. She reports a pain very similar to the pain present over the last 5 visits with the pain present and for her right eye with some blurring of her right eye. She also notes some decreased hearing of her right ear, but states that this is chronic. She reports the pain is on the right side of her head. She received a CT on October 06 which showed some right-sided maxillary sinusitis. Patient is anticoagulated on Eliquis. Over the course of her care here she has received various medicines and feels better, gets discharged home, then her headache pain returns the next morning. She is prophylactically treated with Topamax. She reports her most recent dose was last night. She states she took Tylenol last night along with Topamax. She reports she also took Tylenol this morning. Today's headache occurred upon waking and has been worsening over the course of the day. She feels that the trajectory of this headache is similar to other headaches she has had over this last week. She endorses nausea. She notes that the headache never seems to have completely gone away, but is significantly improved by various treatments in the ER. She denies chest pain. Related Data Home Medications Medication Instructions Recorded Confirmed aspirin 81 mg chewable tablet 81 mg PO QAM 07/26/20 12/23/21 atenolol 25 mg tablet 25 mg PO DAILY 06/25/21 12/23/21 ezetimibe 10 mg tablet 10 mg PO DAILY 06/25/21 12/23/21 levothyroxine 150 mcg tablet 150 mcg PO DAILY 06/25/21 12/23/21 (Synthroid) multivitamin 1 tab PO DAILY ##0 06/25/21 12/23/21 omega-3 fatty acids-vitamin E 1 cap PO DAILY 06/25/21 12/23/21 1,000 mg capsule furosemide 20 mg tablet 10 mg PO QAM 07/09/21 12/23/21 apixaban 5 mg tablet (Eliquis) 5 mg PO BID 07/22/21 12/23/21 cholecalciferol (vitamin D3) 50 50 mcg PO DAILY 07/22/21 12/23/21 mcg (2,000 unit) capsule potassium chloride 10 mEq 20 meq PO DAILY 07/22/21 12/23/21 capsule,extended release Previous Rx's Medication Instructions Recorded ondansetron 4 mg disintegrating 4 mg PO Q8H PRN nausea and 06/24/21 tablet vomiting #10 tabs tramadol 50 mg tablet 50 mg PO Q8H PRN pain #14 tabs 02/28/22 ihukmybzyc-qsohbbgbibnrq-okqkboyc 1 cap PO Q6H PRN pain #10 caps 05/30/22 50 mg-300 mg-40 mg capsule (Fioricet) ondansetron 4 mg disintegrating 4 mg PO Q6-8H PRN nausea and 06/15/22 tablet vomiting #10 tabs rizatriptan 10 mg tablet (Maxalt) 10 mg PO Q2-4H PRN migraine 06/16/22 headache #10 tabs nortriptyline 10 mg capsule 10 mg PO BEDTIME #30 caps 06/17/22 prednisone 20 mg tablet 40 mg (2 x 20 mg) PO DAILY #10 tabs 06/17/22 rimegepant 75 mg disintegrating 75 mg PO Q OTHER DAY PRN migraine 06/17/22 tablet headache #10 tabs metoclopramide HCl 10 mg tablet 10 mg PO Q6H PRN nausea and 06/18/22 (Reglan) vomiting #14 tabs lorazepam 0.5 mg tablet (Ativan) 0.5 mg PO BID PRN nausea and 06/19/22 vomiting #10 tabs diazepam 5 mg tablet (Valium) 5 mg PO BID-QID PRN muscle spasm 08/08/22 #10 tabs hydrocodone 5 mg-acetaminophen 325 1 tab PO Q4-6H PRN pain #10 tabs 08/08/22 mg tablet ketorolac 10 mg tablet 10 mg PO Q6H PRN pain #14 tabs 08/08/22 lidocaine 5 % topical patch 1 patch topical DAILY #15 ea 08/08/22 (Lidoderm) furosemide 20 mg tablet (Lasix) 20 mg PO DAILY #3 tabs 01/23/23 isosorbide mononitrate 30 mg 30 mg PO DAILY #30 tabs 01/24/23 tablet,extended release 24 hr diazepam 5 mg tablet (Valium) 5 mg PO BID-QID PRN muscle spasm 03/12/23 #10 tabs hydrocodone 5 mg-acetaminophen 325 1 tab PO Q4-6H PRN pain #10 tabs 03/12/23 mg tablet methylprednisolone 4 mg tablets in See Rx Instructions PO .COMPLEX 03/12/23 a dose pack (Medrol (Jabier)) #21 ea hydrocodone 5 mg-acetaminophen 325 1 tab PO QID PRN pain #10 tabs 09/11/23 mg tablet ondansetron 4 mg disintegrating 4 mg PO Q8H PRN nausea and 09/17/23 tablet vomiting #10 tabs metoclopramide HCl 10 mg tablet 10 mg PO Q6H PRN nausea and 09/19/23 (Reglan) vomiting #14 tabs morphine 15 mg immediate release 15 mg PO Q6H PRN pain #10 tabs 09/19/23 tablet morphine 15 mg immediate release 15 mg PO Q6H PRN pain #15 tabs 09/19/23 tablet naloxone 4 mg/actuation nasal 4 mg intranasal Q2M #2 ea 09/19/23 spray (Narcan) gackgjguzd-ftzwjiudojesb-openpivg 1 cap PO Q4-6H PRN pain #14 caps 10/10/23 50 mg-300 mg-40 mg capsule (Fioricet) Allergies Allergy/AdvReac Type Severity Reaction Status Date / Time lisinopril Allergy Severe Anaphylaxis Verified 10/07/23 10:21 metformin AdvReac Vomiting Verified 10/07/23 10:21 Review of Systems <Jud Palomino PA-C - Last Filed: 10/09/23 19:34> Review of Systems Narrative: See HPI Patient History <Jud Palomino PA-C - Last Filed: 10/09/23 19:34> Medical History UTI (urinary tract infection) Facet arthropathy, lumbar Atrial fibrillation Lumbar radiculopathy Tinnitus Nose fracture (~06/29/21) HLD (hyperlipidemia) Heart murmur Chronic pancreatitis Depression Chronic back pain Breast cancer Migraine headache Hypothyroidism Hypertension Surgical History Hx of tonsillectomy History of colonoscopy Hx of oophorectomy History of hysterectomy Hx of breast surgery Hx of cholecystectomy Family History Father Brain tumor Congestive heart failure Mother Hypertension Stroke Grandfather Stroke Social History household members: spouse Smoking Status: Former smoker alcohol intake: current Smoking Status: Former smoker tobacco type: cigarettes alcohol intake frequency: a few times a month Alcohol type: wine Substance Use Type: does not use Exam <Jud Palomino PA-C - Last Filed: 10/09/23 19:34> Initial Vital Signs Initial Vital Signs: Vital Signs Temperature 99.5 F 10/09/23 15:38 Pulse Rate 108 H 10/09/23 15:38 Respiratory Rate 22 10/09/23 15:38 Blood Pressure 140/82 10/09/23 15:38 Pulse Oximetry 99 10/09/23 15:38 Oxygen Delivery Method Room Air 10/09/23 15:38 GENERAL: 73 year old patient appears stated age. Well-developed patient, in no acute distress. HEAD: Atraumatic. Normocephalic. EYES: Pupils equal round. Peripheral vision intact bilaterally. Extraocular motions intact. No scleral icterus. No injection or drainage. ENT: Airway patent. TMs pearly nam with good COL, Nontender to mastoid, tragus or pinna palpation. NECK: Trachea midline. Non tender. No cervical lymphadenopathy CARDIOVASCULAR: Regular rate and rhythm without murmurs, gallops, or rubs. RESPIRATORY: Clear to auscultation. Breath sounds equal bilaterally. No wheezes, rales, or rhonchi. EXTREMITIES: No edema or joint tenderness. 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 CN 3 through 12 intact bilaterally, CN 8 decreased on right side, intact coordination with nose to finger evaluation. SKIN: No rash or erythema of visible areas <Mustapha Osuna DO - Last Filed: 10/11/23 17:59> Initial Vital Signs Initial Vital Signs: Vital Signs Temperature 99.5 F 10/09/23 15:38 Pulse Rate 108 H 10/09/23 15:38 Respiratory Rate 22 10/09/23 15:38 Blood Pressure 140/82 10/09/23 15:38 Pulse Oximetry 99 10/09/23 15:38 Oxygen Delivery Method Room Air 10/09/23 15:38 Procedures <Mustapha Osuna DO - Last Filed: 10/11/23 17:59> Procedural Sedation Consent signed: Yes Time out performed: Yes Indication: other (Headache) ASA Class: II Mallampati Airway Classification: Class II Preparation: monitor car operator applied, pulse oximeter, capnometry used, supplemental O2 applied, suction/airway equipment at bedside and IV secured IV Propofol dose (mg): 60 ED Sedation Level: Moderate (Concious) Patient Tolerated Procedure: No complications Complications: none Course <Jud Palomino PA-C - Last Filed: 10/09/23 19:34> Orders Ordered: Discontinued Medications Hydromorphone HCl (Hydromorphone 1 Mg Inj) 1 mg IV NOW ONE Stop: 10/09/23 16:44 Last Admin: 10/09/23 16:55 Dose: 1 mg Documented By: FARIDEH Sodium Chloride (Normal Saline 0.9%) 1,000 mls @ 1,000 mls/hr IV BOLUS ONE Stop: 10/09/23 17:42 Last Infusion: 10/09/23 18:03 Dose: Infused Documented By: Admin: 10/09/23 16:56 Dose: 1,000 mls/hr Documented By: FARIDEH Sodium Chloride (Normal Saline 0.9%) 1,000 mls @ 125 mls/hr IV CONT GILA Ondansetron HCl (Ondansetron 4 Mg/2 Ml Inj) 4 mg IV NOW ONE Stop: 10/09/23 16:28 Last Admin: 10/09/23 16:42 Dose: Not Given Documented By: FARIDEH Ondansetron HCl (Ondansetron 4 Mg Odt) 4 mg SL NOW ONE Stop: 10/09/23 16:32 Last Admin: 10/09/23 16:41 Dose: 4 mg Documented By: FARIDEH Propofol (Propofol 200 Mg/20 Ml Vial) 100 mg IV NOW ONE Stop: 10/09/23 17:17 Last Admin: 10/09/23 17:29 Dose: 60 mg Documented By: ES Vital Signs Vital signs: Vital Signs - 8 hr 10/09/23 15:38 10/09/23 17:10 10/09/23 17:12 Temperature 99.5 F Pulse Rate 108 H 97 H Respiratory Rate 22 Blood Pressure 140/82 173/116 H Pulse Oximetry 99 92 Oxygen Delivery Method Room Air Oxygen Flow Rate 10/09/23 17:12 10/09/23 17:20 10/09/23 17:20 Temperature Pulse Rate 101 H 100 H Respiratory Rate 18 Blood Pressure 142/107 H Pulse Oximetry 97 99 Oxygen Delivery Method Oxygen Flow Rate 10/09/23 17:30 10/09/23 17:30 10/09/23 17:30 Temperature Pulse Rate 72 89 Respiratory Rate 10 L 14 Blood Pressure 123/75 160/88 H Pulse Oximetry 99 98 Oxygen Delivery Method Oxygen Flow Rate 10/09/23 17:31 10/09/23 17:34 10/09/23 17:35 Temperature Pulse Rate 89 82 Respiratory Rate 14 11 L Blood Pressure 160/88 H Pulse Oximetry 99 92 97 Oxygen Delivery Method Room Air Nasal Cannula Nasal Cannula Oxygen Flow Rate 3 3 10/09/23 17:35 10/09/23 17:40 10/09/23 17:40 Temperature Pulse Rate 76 Respiratory Rate 10 L Blood Pressure 135/61 123/75 Pulse Oximetry 99 Oxygen Delivery Method Room Air Oxygen Flow Rate 10/09/23 17:45 10/09/23 17:45 10/09/23 17:48 Temperature Pulse Rate 71 Respiratory Rate 8 L 14 Blood Pressure 132/73 Pulse Oximetry 97 Oxygen Delivery Method Room Air Oxygen Flow Rate 10/09/23 18:00 10/09/23 18:00 10/09/23 18:18 Temperature Pulse Rate 69 82 Respiratory Rate 12 16 Blood Pressure 138/66 133/86 Pulse Oximetry 98 98 Oxygen Delivery Method Room Air Room Air Oxygen Flow Rate <Mustapha Osuna, - Last Filed: 10/11/23 17:59> Orders Ordered: Discontinued Medications Hydromorphone HCl (Hydromorphone 1 Mg Inj) 1 mg IV NOW ONE Stop: 10/09/23 16:44 Last Admin: 10/09/23 16:55 Dose: 1 mg Documented By: FARIDEH Sodium Chloride (Normal Saline 0.9%) 1,000 mls @ 1,000 mls/hr IV BOLUS ONE Stop: 10/09/23 17:42 Last Infusion: 10/09/23 18:03 Dose: Infused Documented By: Admin: 10/09/23 16:56 Dose: 1,000 mls/hr Documented By: FARIDEH Sodium Chloride (Normal Saline 0.9%) 1,000 mls @ 125 mls/hr IV CONT GILA Ondansetron HCl (Ondansetron 4 Mg/2 Ml Inj) 4 mg IV NOW ONE Stop: 10/09/23 16:28 Last Admin: 10/09/23 16:42 Dose: Not Given Documented By: FARIDEH Ondansetron HCl (Ondansetron 4 Mg Odt) 4 mg SL NOW ONE Stop: 10/09/23 16:32 Last Admin: 10/09/23 16:41 Dose: 4 mg Documented By: FARIDEH Propofol (Propofol 200 Mg/20 Ml Vial) 100 mg IV NOW ONE Stop: 10/09/23 17:17 Last Admin: 10/09/23 17:29 Dose: 60 mg Documented By: RIGO Vital Signs Vital signs: Vital Signs - 8 hr 10/09/23 15:38 10/09/23 17:10 10/09/23 17:12 Temperature 99.5 F Pulse Rate 108 H 97 H Respiratory Rate 22 Blood Pressure 140/82 173/116 H Pulse Oximetry 99 92 Oxygen Delivery Method Room Air Oxygen Flow Rate 10/09/23 17:12 10/09/23 17:20 10/09/23 17:20 Temperature Pulse Rate 101 H 100 H Respiratory Rate 18 Blood Pressure 142/107 H Pulse Oximetry 97 99 Oxygen Delivery Method Oxygen Flow Rate 10/09/23 17:30 10/09/23 17:30 10/09/23 17:30 Temperature Pulse Rate 72 89 Respiratory Rate 10 L 14 Blood Pressure 123/75 160/88 H Pulse Oximetry 99 98 Oxygen Delivery Method Oxygen Flow Rate 10/09/23 17:31 10/09/23 17:34 10/09/23 17:35 Temperature Pulse Rate 89 82 Respiratory Rate 14 11 L Blood Pressure 160/88 H Pulse Oximetry 99 92 97 Oxygen Delivery Method Room Air Nasal Cannula Nasal Cannula Oxygen Flow Rate 3 3 10/09/23 17:35 10/09/23 17:40 10/09/23 17:40 Temperature Pulse Rate 76 Respiratory Rate 10 L Blood Pressure 135/61 123/75 Pulse Oximetry 99 Oxygen Delivery Method Room Air Oxygen Flow Rate 10/09/23 17:45 10/09/23 17:45 10/09/23 17:48 Temperature Pulse Rate 71 Respiratory Rate 8 L 14 Blood Pressure 132/73 Pulse Oximetry 97 Oxygen Delivery Method Room Air Oxygen Flow Rate 10/09/23 18:00 10/09/23 18:00 10/09/23 18:18 Temperature Pulse Rate 69 82 Respiratory Rate 12 16 Blood Pressure 138/66 133/86 Pulse Oximetry 98 98 Oxygen Delivery Method Room Air Room Air Oxygen Flow Rate MDM - Headache <Jud Palomino PA-C - Last Filed: 10/09/23 19:34> Lab Data Labs: Point of Care Testing Test Results Negative MDM Narrative Medical decision making narrative: Patient is a 73-year-old female presenting to the emergency department for her 5th time for evaluation of a right-sided headache coming on this morning. She states it feels similar to her previous headaches. Discussed case with Dr. Osuna. She will be transferred to the main emergency department. She has received 1 mg of Dilaudid for pain as well as 4 mg of Zofran and IV normal saline.. Multiple etiologies for patient's symptoms considered including, but not limited to: Migraine, tumor, subarachnoid hemorrhage, cluster headache, tension headache Prior Charts reviewed: ER visit: 10/04/2023, 10/06/2023, 10/07/2023, 10/08/2023 Consultations: Discussed with Dr. Osuna, she will be transferred to main ED. Dr osuna: Received turned over. Patient has been here over the past 5 days for the same headache in the right side of her head. She returns to the emergen cy department today with the same headache that we have seen her for before. No fevers. It continues to be the right side involving the right eye. After she was discharged yesterday she states that her headache actually improved but then came back again and then was back this morning and worsened throughout the day. I talked with her yesterday about sedating her with propofol. This is a off l luc use of this medication. There are case reports that support potentially the improvement of refractory headaches with sedation with propofol. I had a long discussion with the patient and the at bedside regarding this. They understand that this is a nonconventional way of treating the headache although it potentially could help. We discussed the risks of the sedation. After this the patient stated that she would like to try this as it seems that none of the other medications are helping. She did sign the consent form. Everyone in the room understands that this is off-label and nonconventional. Patient was given propofol. She tolerated the procedure well. Had no hypoxia. When she woke up she stated that her headache was a 2/10 down from a 5/10. With continued observation her headache completely resolved. She has not been symptom free since the onset of the headache 5 days ago. Plan will be to discharge the patient home. She was given return precautions. She expressed understanding and agreement. <Mustapha Osuna, DO - Last Filed: 10/11/23 17:59> Lab Data Labs: Point of Care Testing Test Results Negative MDM Narrative Medical decision making narrative: Patient is a 73-year-old female presenting to the emergency department for her 5th time for evaluation of a right-sided headache coming on this morning. She states it feels similar to her previous headaches. Discussed case with Dr. Osuna. She will be transferred to the main emergency department. She has received 1 mg of Dilaudid for pain as well as 4 mg of Zofran and IV fluids. Multiple etiologies for patient's symptoms considered including, but not limited to: [] Prior Charts reviewed: Labs reviewed and interpreted by myself: Imaging reviewed: Consultations: Patient's symptoms improved over duration of stay with above-stated therapies. Findings and discharge diagnosis discussed with patient/family followed by verbalization of understanding Return precautions discussed with patient/family whom verbalize understanding of diagnosis and plan Dr osuna: Received turned over. Patient has been here over the past 5 days for the same headache in the right side of her head. She returns to the emergency department today with the same headache that we have seen her for b efore. No fevers. It continues to be the right side involving the right eye. After she was discharged yesterday she states that her headache actually improved but then came back again and then was back this morning and worsened throughout the day. I talked with her yesterday about sedating her with propofol. This is a off label use of this medication. There are case reports that support potentially the improvement of refractory headaches with sedation with propofol. I had a long discussion with the patient and the at bedside regarding this. They understand that this is a nonconventional way of treating the headache although it potentially could help. We discussed the risks of the sedation. After this the patient stated that she would like to try this as it seems that none of the other medications are helping. She did sign the consent form. Everyone in the room understands that this is off-label and nonconventional. Patient was given propofol. She tolerated the procedure well. Had no hypoxia. When she woke up she stated that her headache was a 2/10 down from a 5/10. With continued observation her headache completely resolved. She has not been symptom free since the onset of the headache 5 days ago. Plan will be to discharge the patient home. She was given return precautions. She expressed understanding and agreement. Discharge Plan Departure Patient Disposition: Home Clinical Impression: Headache Instructions: DI for Headache Activity Restrictions/Additional Instructions: I hope that what we did today cures your headache. Continue to take all of your medications as directed. Return to the emergency department for new symptoms. Prescriptions: No Action aspirin 81 mg Tablet,Chewable 81 mg PO QAM ondansetron 4 mg tablet,disintegrating 4 mg PO Q8H PRN (Reason: nausea and vomiting) Qty: 10 0RF furosemide 20 mg Tablet 10 mg PO QAM buapaphegp-rjxrcycetidxg-xsrw [Fioricet] 50-300-40 mg capsule 1 cap PO Q6H PRN (Reason: pain) Qty: 10 0RF ondansetron 4 mg tablet,disintegrating 4 mg PO Q6-8H PRN (Reason: nausea and vomiting) Qty: 10 0RF rizatriptan [Maxalt] 10 mg tablet 10 mg PO Q2-4H PRN (Reason: migraine headache) Qty: 10 0RF Rx Instructions: do not exceed 3 doses per 24 hrs furosemide [Lasix] 20 mg tablet 20 mg PO DAILY Qty: 3 0RF ondansetron 4 mg tablet,disintegrating 4 mg PO Q8H PRN (Reason: nausea and vomiting) Qty: 10 0RF multivitamin Tablet 1 tab PO DAILY Qty: 0 atenolol 25 mg Tablet 25 mg PO DAILY levothyroxine [Synthroid] 150 mcg Tablet 150 mcg PO DAILY ezetimibe 10 mg Tablet 10 mg PO DAILY omega-3 fatty acids-vitamin E 1,000 mg Capsule 1 cap PO DAILY tramadol 50 mg tablet 50 mg PO Q8H PRN (Reason: pain) Qty: 14 0RF prednisone 20 mg tablet 40 mg PO DAILY Qty: 10 0RF rimegepant 75 mg tablet,disintegrating 75 mg PO Q OTHER DAY PRN (Reason: migraine headache) Qty: 10 0RF nortriptyline 10 mg capsule 10 mg PO BEDTIME Qty: 30 0RF metoclopramide HCl [Reglan] 10 mg tablet 10 mg PO Q6H PRN (Reason: nausea and vomiting) Qty: 14 0RF lorazepam [Ativan] 0.5 mg tablet 0.5 mg PO BID PRN (Reason: nausea and vomiting) Qty: 10 0RF hydrocodone-acetaminophen 5-325 mg tablet 1 tab PO Q4-6H PRN (Reason: pain) Qty: 10 0RF ketorolac 10 mg tablet 10 mg PO Q6H PRN (Reason: pain) Qty: 14 0RF lidocaine [Lidoderm] 5 % adhesive patch,medicated 1 patch TOP DAILY Qty: 15 0RF Rx Instructions: leave on most painful area for 12 hrs diazepam [Valium] 5 mg tablet 5 mg PO BID-QID PRN (Reason: muscle spasm) Qty: 10 0RF isosorbide mononitrate 30 mg tablet extended release 24 hr 30 mg PO DAILY Qty: 30 0RF hydrocodone-acetaminophen 5-325 mg tablet 1 tab PO Q4-6H PRN (Reason: pain) Qty: 10 0RF methylprednisolone [Medrol (Jabier)] 4 mg tablets,dose pack See Rx Instructions .ROUTE .COMPLEX Qty: 21 0RF Rx Instructions: orally per package directions diazepam [Valium] 5 mg tablet 5 mg PO BID-QID PRN (Reason: muscle spasm) Qty: 10 0RF hydrocodone-acetaminophen 5-325 mg tablet 1 tab PO QID PRN (Reason: pain) Qty: 10 0RF morphine 15 mg tablet 15 mg PO Q6H PRN (Reason: pain) Qty: 10 0RF naloxone [Narcan] 4 mg/actuation spray,non-aerosol 4 mg intranasal Q2M Qty: 2 0RF Rx Instructions: spray 1 dose into ONE nostril; alternate nostrils w each dose until help arrives metoclopramide HCl [Reglan] 10 mg tablet 10 mg PO Q6H PRN (Reason: nausea and vomiting) Qty: 14 0RF morphine 15 mg tablet 15 mg PO Q6H PRN (Reason: pain) Qty: 15 0RF oqibincasw-khsotuppebyzt-vlkl [Fioricet] 50-300-40 mg capsule 1 cap PO Q4-6H PRN (Reason: pain) Qty: 14 0RF potassium chloride 10 mEq capsule, extended release 20 meq PO DAILY cholecalciferol (vitamin D3) 50 mcg (2,000 unit) capsule 50 mcg PO DAILY Eliquis 5 mg tablet 5 mg PO BID Referrals: Yuli Lang PA-C [Primary Care Provider] - Stand Alone Forms: Patient Portal/API ED Sign-out <Mustapha Osuna, - Last Filed: 10/11/23 17:59> Cosign ED Attending Cosignature Attestation: Dr Osuna Co-Sign Statement: I was available for consultation during this patient's emergency department visit. This chart is signed by myself for administrative purposes only. I did not have direct contact with this patient during this visit. They were seen independently by the [facility].
[2023-10-09] MEDS: ONDANSETRON 4 MG ODT SL (16:41)
[2023-10-09] MEDS: HYDROMORPHONE 1 MG INJ IV (16:55)
[2023-10-09] MEDS: SODIUM CHLORIDE 0.9% 1,000 ML 1000 ML IV (16:56)
[2023-10-09] MEDS: propofoL 200 MG/20 ML VIAL 100 MG IV (17:29)
--- NOTE | 2023-10-09 17:35 | PC.NURSE ---
Pre-procedural time-out: Dr. Osuna, RT Raghav, RN Jud all at bedside. 1730. Consent signed; capnography ongoing.
== END 2023-10-09 18:19 | disposition home or self-care (01) ==
PROVIDERS: Emergency Provider Emergency Medicine; PCP Physician Assistant
DX: R51.9 Headache, unspecified (principal)
CPT/HCPCS: 36415; 99284; 99285; J1170; J2704

== ENCOUNTER 2023-10-10 15:33 | Emergency (ER) | payer MEDICARE, OTHER, SELFPAY ==
[2021-06-25 17:33] VITALS: BMI 28.1
[2023-10-10 16:01] VITALS: BP 138/87; PULSE 84; RESP 22; TEMP 37; O2SAT 93; BMI 25.0
[2023-10-10] MEDS: ONDANSETRON 4 MG ODT SL (16:09)
--- NOTE | 2023-10-10 19:28 | PC.NURSE ---
pt c/o recurring migraine pt has been here several times this past week for the same but the migraine keeps recuring
[2023-10-10] MEDS: DIHYDROERGOTAMINE 1 MG/ML AMPUL IV (19:51)
[2023-10-10] MEDS: ACETAMINOPHEN IV 1,000 MG/100 ML VIAL 400 MG IV (19:51)
[2023-10-10] MEDS: SODIUM CHLORIDE 0.9% 1,000 ML 1000 ML IV (19:52)
[2023-10-10] MEDS: ONDANSETRON 4 MG/2 ML INJ IV (20:17)
--- NOTE | 2023-10-10 20:36 | ED.HA ---
HPI - Headache General Chief Complaint: Headache Stated Complaint: migraine Time Seen by Provider: 10/10/23 19:26 Mode of arrival: Ambulatory History of Present Illness HPI Narrative: Patient is a 73-year-old female history of migraine headaches presenting today for the 6th time this month the ongoing migraine headache. She 1st came to the ED on October 04 she has since been back October 0602 05 and and again today for ongoing headache. She has had CT scan she has had blood work done. She had another episode like this previously where she had a continued headache. She reports that Dilaudid makes her headache improve. Multiple things have been tried during her ED visits. She continues to have headache on the right side. She has not had any fever. She had propofol infusion which did not help her headache. She has no neurologic deficits. She had a head CT which was negative. Related Data Home Medications Medication Instructions Recorded Confirmed aspirin 81 mg chewable tablet 81 mg PO QAM 07/26/20 12/23/21 atenolol 25 mg tablet 25 mg PO DAILY 06/25/21 12/23/21 ezetimibe 10 mg tablet 10 mg PO DAILY 06/25/21 12/23/21 levothyroxine 150 mcg tablet 150 mcg PO DAILY 06/25/21 12/23/21 (Synthroid) multivitamin 1 tab PO DAILY ##0 06/25/21 12/23/21 omega-3 fatty acids-vitamin E 1 cap PO DAILY 06/25/21 12/23/21 1,000 mg capsule furosemide 20 mg tablet 10 mg PO QAM 07/09/21 12/23/21 apixaban 5 mg tablet (Eliquis) 5 mg PO BID 07/22/21 12/23/21 cholecalciferol (vitamin D3) 50 50 mcg PO DAILY 07/22/21 12/23/21 mcg (2,000 unit) capsule potassium chloride 10 mEq 20 meq PO DAILY 07/22/21 12/23/21 capsule,extended release Previous Rx's Medication Instructions Recorded ondansetron 4 mg disintegrating 4 mg PO Q8H PRN nausea and 06/24/21 tablet vomiting #10 tabs tramadol 50 mg tablet 50 mg PO Q8H PRN pain #14 tabs 02/28/22 xdopmaerdi-srbghakyzbuso-dvxhsxmu 1 cap PO Q6H PRN pain #10 caps 05/30/22 50 mg-300 mg-40 mg capsule (Fioricet) ondansetron 4 mg disintegrating 4 mg PO Q6-8H PRN nausea and 06/15/22 tablet vomiting #10 tabs rizatriptan 10 mg tablet (Maxalt) 10 mg PO Q2-4H PRN migraine 06/16/22 headache #10 tabs nortriptyline 10 mg capsule 10 mg PO BEDTIME #30 caps 06/17/22 prednisone 20 mg tablet 40 mg (2 x 20 mg) PO DAILY #10 tabs 06/17/22 rimegepant 75 mg disintegrating 75 mg PO Q OTHER DAY PRN migraine 06/17/22 tablet headache #10 tabs metoclopramide HCl 10 mg tablet 10 mg PO Q6H PRN nausea and 06/18/22 (Reglan) vomiting #14 tabs lorazepam 0.5 mg tablet (Ativan) 0.5 mg PO BID PRN nausea and 06/19/22 vomiting #10 tabs diazepam 5 mg tablet (Valium) 5 mg PO BID-QID PRN muscle spasm 08/08/22 #10 tabs hydrocodone 5 mg-acetaminophen 325 1 tab PO Q4-6H PRN pain #10 tabs 08/08/22 mg tablet ketorolac 10 mg tablet 10 mg PO Q6H PRN pain #14 tabs 08/08/22 lidocaine 5 % topical patch 1 patch topical DAILY #15 ea 08/08/22 (Lidoderm) furosemide 20 mg tablet (Lasix) 20 mg PO DAILY #3 tabs 01/23/23 isosorbide mononitrate 30 mg 30 mg PO DAILY #30 tabs 01/24/23 tablet,extended release 24 hr diazepam 5 mg tablet (Valium) 5 mg PO BID-QID PRN muscle spasm 03/12/23 #10 tabs hydrocodone 5 mg-acetaminophen 325 1 tab PO Q4-6H PRN pain #10 tabs 03/12/23 mg tablet methylprednisolone 4 mg tablets in See Rx Instructions PO .COMPLEX 03/12/23 a dose pack (Medrol (Jabier)) #21 ea hydrocodone 5 mg-acetaminophen 325 1 tab PO QID PRN pain #10 tabs 09/11/23 mg tablet ondansetron 4 mg disintegrating 4 mg PO Q8H PRN nausea and 09/17/23 tablet vomiting #10 tabs metoclopramide HCl 10 mg tablet 10 mg PO Q6H PRN nausea and 09/19/23 (Reglan) vomiting #14 tabs morphine 15 mg immediate release 15 mg PO Q6H PRN pain #10 tabs 09/19/23 tablet morphine 15 mg immediate release 15 mg PO Q6H PRN pain #15 tabs 09/19/23 tablet naloxone 4 mg/actuation nasal 4 mg intranasal Q2M #2 ea 09/19/23 spray (Narcan) vonjuurtpx-qrkzmefucpruh-suvihorz 1 cap PO Q4-6H PRN pain #14 caps 10/10/23 50 mg-300 mg-40 mg capsule (Fioricet) Allergies Allergy/AdvReac Type Severity Reaction Status Date / Time lisinopril Allergy Severe Anaphylaxis Verified 10/07/23 10:21 metformin AdvReac Vomiting Verified 10/07/23 10:21 Patient History Medical History UTI (urinary tract infection) Facet arthropathy, lumbar Atrial fibrillation Lumbar radiculopathy Tinnitus Nose fracture (~06/29/21) HLD (hyperlipidemia) Heart murmur Chronic pancreatitis Depression Chronic back pain Breast cancer Migraine headache Hypothyroidism Hypertension Surgical History Hx of tonsillectomy History of colonoscopy Hx of oophorectomy History of hysterectomy Hx of breast surgery Hx of cholecystectomy Family History Father Brain tumor Congestive heart failure Mother Hypertension Stroke Grandfather Stroke Social History household members: spouse Smoking Status: Former smoker alcohol intake: current Smoking Status: Former smoker tobacco type: cigarettes alcohol intake frequency: a few times a month Alcohol type: wine Substance Use Type: does not use Exam Initial Vital Signs Initial Vital Signs: Vital Signs Temperature 98.6 F 10/10/23 16:01 Pulse Rate 84 10/10/23 16:01 Respiratory Rate 22 10/10/23 16:01 Blood Pressure 138/87 10/10/23 16:01 Pulse Oximetry 93 10/10/23 16:01 Oxygen Delivery Method Room Air 10/10/23 16:01 Course Orders Ordered: Discontinued Medications Acetaminophen/Butalbital/Caffeine (Butalb/Apap/Caffeine 50/325/40 Tablet) 1 each PO NOW ONE Stop: 10/10/23 21:22 Last Admin: 10/10/23 21:36 Dose: 1 each Documented By: VARUN Dexamethasone (Dexamethasone 10 Mg/Ml Vial) 10 mg IV NOW ONE Stop: 10/10/23 21:31 Last Admin: 10/10/23 21:39 Dose: 10 mg Documented By: VARUN Dihydroergotamine Mesylate (Dihydroergotamine 1 Mg/Ml Ampul) 1 mg IV NOW ONE Stop: 10/10/23 19:29 Last Admin: 10/10/23 19:51 Dose: 1 mg Documented By: ELOISA Sodium Chloride (Normal Saline 0.9%) 1,000 mls @ 1,000 mls/hr IV BOLUS ONE Stop: 10/10/23 20:27 Last Infusion: 10/10/23 20:55 Dose: Infused Documented By: Admin: 10/10/23 19:52 Dose: 1,000 mls/hr Documented By: ELOISA Acetaminophen (Ofirmev) 1,000 mg in 100 mls @ 400 mls/hr IV NOW ONE Stop: 10/10/23 19:50 Last Infusion: 10/10/23 20:17 Dose: Infused Documented By: Admin: 10/10/23 19:51 Dose: 400 mls/hr Documented By: ELOISA Ondansetron HCl (Ondansetron 4 Mg Odt) 4 mg SL NOW ONE Stop: 10/10/23 16:06 Last Admin: 10/10/23 16:09 Dose: 4 mg Documented By: RIGO Ondansetron HCl (Ondansetron 4 Mg/2 Ml Inj) 4 mg IV NOW ONE Stop: 10/10/23 20:12 Last Admin: 10/10/23 20:17 Dose: 4 mg Documented By: ELOISA Vital Signs Vital signs: Vital Signs - 8 hr 10/10/23 21:08 Pulse Rate 83 Respiratory Rate 18 Blood Pressure 184/93 H Pulse Oximetry 98 Oxygen Delivery Method Room Air MDM - Headache Lab Data 10/10/23 16:16 10/10/23 16:16 Labs: Lab Results 10/10/23 Range/Units 16:16 WBC 8.4 (4.5-11.0) X10^3/uL RBC 4.95 (4.0-5.2) X10^6/uL Hgb 15.6 (12.0-16.0) g/dL Hct 47.4 H (36-46) % MCV 95.7 (80-100) fL MCH 31.5 (26-34) PG MCHC 32.9 (30-36) % RDW 14.5 (11.6-14.8) % Plt Count 222 (150-400) X10^3/uL Neut % (Auto) 59.6 (50-75) % Lymph % (Auto) 29.1 (25-40) % [place] % (Auto) 8.3 (3-14) % Eos % (Auto) 2.4 (2-4) % Baso % (Auto) 0.6 (0-2) % Neut # (Auto) 5000 (4560-5420) /uL Lymph # (Auto) 2400 (3650-1400) /uL [place] # (Auto) 700 (0-900) /uL Eos # (Auto) 200 (0-450) /uL Baso # (Auto) 0 (0-100) /uL Sodium 137 (137-145) mmol/L Potassium 4.2 (3.4-5.1) mmol/L Chloride 107 (98-107) mmol/L Carbon Dioxide 21 L (22-32) mmol/L BUN 15 (7-17) mg/dL Creatinine 1.04 (0.52-1.04) mg/dL Estimated GFR 56 L (>60) mL/min BUN/Creatinine Ratio 14.4 (6-22) Glucose 97 (80-110) mg/dL Calcium 9.7 (8.4-10.2) mg/dL Total Bilirubin 0.6 (0.2-1.3) mg/dL AST 34 (14-36) IU/L ALT 26 (<35) IU/L Alkaline Phosphatase 75 (38-126) U/L Total Protein 7.0 (6.3-8.2) g/dL Albumin 4.2 (3.5-5.0) g/dL Globulin 2.8 (1.7-4.1) g/dL Albumin/Globulin Ratio 1.5 (1.0-2.8) MDM Narrative Medical decision making narrative: Patient 73-year-old female who has persistent ongoing headache. She has had head CT blood work multiple treatment medications were the course of the week. Dilaudid seems to help but it does not last long she frequently comes back the next day I suspect an opiate rebound medication headache. She is afebrile no concern for meningitis she has had a head CT she is negative. She has no focal deficits today. Today she has been given DHE Tylenol Fioricet Zofran. No focal deficits. This time do not want to give her anymore narcotic concerning for rebound. This is similar to Eric previous migraine headaches. Low concern for temporal arteritis, meningitis, intracranial hemorrhage Blood work has been reviewed and within normal limits. Patient getting frustrated pain is minimally improved. At this time she appears well she has no focal deficits no nausea or vomiting. Recommended follow-up with Neurology and PCP. Discharge Plan Departure Patient Disposition: Home Clinical Impression: Migraine Instructions: DI for Migraine Activity Restrictions/Additional Instructions: *You have been diagnosed with migraine headache *What to do: You do need to see a neurologist. I think that you need more medication to help prevent these. *Continue to take medications as directed Fioricet 1-2 tablets every 4 hours if needed for pain (this has Tylenol in it 300 mg do not combine with Tylenol) *Follow up with your primary care provider in 2-3 days or call [phone] Recommend follow-up with Neurology *Return to ER if you should have numbness tingling weakness persistent vomiting or any new, worsening or concerning symptoms Prescriptions: New aqznuhfbjz-liqjbhrobqoxy-cmlt [Fioricet] 50-300-40 mg capsule 1 cap PO Q4-6H PRN (Reason: pain) Qty: 14 0RF No Action aspirin 81 mg Tablet,Chewable 81 mg PO QAM ondansetron 4 mg tablet,disintegrating 4 mg PO Q8H PRN (Reason: nausea and vomiting) Qty: 10 0RF furosemide 20 mg Tablet 10 mg PO QAM fjargfyvwq-srxvcrtldkmmx-dykx [Fioricet] 50-300-40 mg capsule 1 cap PO Q6H PRN (Reason: pain) Qty: 10 0RF ondansetron 4 mg tablet,disintegrating 4 mg PO Q6-8H PRN (Reason: nausea and vomiting) Qty: 10 0RF rizatriptan [Maxalt] 10 mg tablet 10 mg PO Q2-4H PRN (Reason: migraine headache) Qty: 10 0RF Rx Instructions: do not exceed 3 doses per 24 hrs furosemide [Lasix] 20 mg tablet 20 mg PO DAILY Qty: 3 0RF ondansetron 4 mg tablet,disintegrating 4 mg PO Q8H PRN (Reason: nausea and vomiting) Qty: 10 0RF multivitamin Tablet 1 tab PO DAILY Qty: 0 atenolol 25 mg Tablet 25 mg PO DAILY levothyroxine [Synthroid] 150 mcg Tablet 150 mcg PO DAILY ezetimibe 10 mg Tablet 10 mg PO DAILY omega-3 fatty acids-vitamin E 1,000 mg Capsule 1 cap PO DAILY tramadol 50 mg tablet 50 mg PO Q8H PRN (Reason: pain) Qty: 14 0RF prednisone 20 mg tablet 40 mg PO DAILY Qty: 10 0RF rimegepant 75 mg tablet,disintegrating 75 mg PO Q OTHER DAY PRN (Reason: migraine headache) Qty: 10 0RF nortriptyline 10 mg capsule 10 mg PO BEDTIME Qty: 30 0RF metoclopramide HCl [Reglan] 10 mg tablet 10 mg PO Q6H PRN (Reason: nausea and vomiting) Qty: 14 0RF lorazepam [Ativan] 0.5 mg tablet 0.5 mg PO BID PRN (Reason: nausea and vomiting) Qty: 10 0RF hydrocodone-acetaminophen 5-325 mg tablet 1 tab PO Q4-6H PRN (Reason: pain) Qty: 10 0RF ketorolac 10 mg tablet 10 mg PO Q6H PRN (Reason: pain) Qty: 14 0RF lidocaine [Lidoderm] 5 % adhesive patch,medicated 1 patch TOP DAILY Qty: 15 0RF Rx Instructions: leave on most painful area for 12 hrs diazepam [Valium] 5 mg tablet 5 mg PO BID-QID PRN (Reason: muscle spasm) Qty: 10 0RF isosorbide mononitrate 30 mg tablet extended release 24 hr 30 mg PO DAILY Qty: 30 0RF hydrocodone-acetaminophen 5-325 mg tablet 1 tab PO Q4-6H PRN (Reason: pain) Qty: 10 0RF methylprednisolone [Medrol (Jabier)] 4 mg tablets,dose pack See Rx Instructions .ROUTE .COMPLEX Qty: 21 0RF Rx Instructions: orally per package directions diazepam [Valium] 5 mg tablet 5 mg PO BID-QID PRN (Reason: muscle spasm) Qty: 10 0RF hydrocodone-acetaminophen 5-325 mg tablet 1 tab PO QID PRN (Reason: pain) Qty: 10 0RF morphine 15 mg tablet 15 mg PO Q6H PRN (Reason: pain) Qty: 10 0RF naloxone [Narcan] 4 mg/actuation spray,non-aerosol 4 mg intranasal Q2M Qty: 2 0RF Rx Instructions: spray 1 dose into ONE nostril; alternate nostrils w each dose until help arrives metoclopramide HCl [Reglan] 10 mg tablet 10 mg PO Q6H PRN (Reason: nausea and vomiting) Qty: 14 0RF morphine 15 mg tablet 15 mg PO Q6H PRN (Reason: pain) Qty: 15 0RF potassium chloride 10 mEq capsule, extended release 20 meq PO DAILY cholecalciferol (vitamin D3) 50 mcg (2,000 unit) capsule 50 mcg PO DAILY Eliquis 5 mg tablet 5 mg PO BID Referrals: Yuli Lang PA-C [Primary Care Provider] - Stand Alone Forms: Patient Portal/API
[2023-10-10 21:08] VITALS: BP 184/93; PULSE 83; RESP 18; O2SAT 98
[2023-10-10 21:10] LABS: Add Manual Diff / Slide Review NO; Alanine Aminotransferase 26 IU/L (<35); Albumin 4.2 g/dL (3.5-5.0); Albumin Globulin Ratio 1.5 (1.0-2.8); Alkaline Phosphatase 75 U/L (38-126); Aspartate Aminotransferase 34 IU/L (14-36); BUN Creatinine Ratio 14.4 (6-22); Basophils Absolute Auto 0 /uL (0-100); Basophils Percent Auto 0.6 % (0-2); Bilirubin Total 0.6 mg/dL (0.2-1.3); Blood Urea Nitrogen 15 mg/dL (7-17); Calcium 9.7 mg/dL (8.4-10.2); Carbon Dioxide 21 mmol/L (22-32); Chloride 107 mmol/L (98-107); Eosinophils Absolute Auto 200 /uL (0-450); Eosinophils Percent Auto 2.4 % (2-4); Estimated Glomerular Filt Rate 56 mL/min (>60); Globulin 2.8 g/dL (1.7-4.1); Glucose 97 mg/dL (80-110); HEMOLYSIS 44 (0-50); Hematocrit 47.4 % (36-46); Hemoglobin 15.6 g/dL (12.0-16.0); Lymphocytes Absolute Auto 2400 /uL (1100-4500); Lymphocytes Percent Auto 29.1 % (25-40); Mean Corpuscular HGB Conc 32.9 % (30-36); Mean Corpuscular Hemoglobin 31.5 PG (26-34); Mean Corpuscular Volume 95.7 fL (80-100); Monocytes Absolute Auto 700 /uL (0-900); Monocytes Percent Auto 8.3 % (3-14); Neutrophils Absolute Auto 5000 /uL (1500-7000); Neutrophils Percent Auto 59.6 % (50-75); Platelet Count 222 X10^3/uL (150-400); Potassium 4.2 mmol/L (3.4-5.1); Red Blood Cell Count 4.95 X10^6/uL (4.0-5.2); Red Cell Distribution Width 14.5 % (11.6-14.8); Sodium 137 mmol/L (137-145); White Blood Cell Count 8.4 X10^3/uL (4.5-11.0)
[2023-10-10] MEDS: BUTALB/APAP/CAFFEINE 50/325/40 TABLET 1 EACH PO (21:36)
[2023-10-10] MEDS: DEXAMETHASONE 10 MG/ML VIAL IV (21:39)
== END 2023-10-10 22:34 | disposition home or self-care (01) ==
PROVIDERS: Emergency Provider Emergency Medicine; PCP Physician Assistant
DX: G43.909 Migraine, unspecified, not intractable, without status migrainosus (principal)
CPT/HCPCS: 36415; 80053; 85025; 96365; 96375; 99284; J0136; J1100; J1110; J2405

== ENCOUNTER 2024-01-02 11:35 | Emergency (ER) | payer MEDICARE, OTHER, SELFPAY ==
[2021-06-25 17:33] VITALS: BMI 28.1
[2024-01-02] VITALS (18 sets, daily range): BP systolic 95–146; BP diastolic 54–84; PULSE 66–68; RESP 12–23; TEMP 36.4; O2SAT 94–98; BMI 27.1
--- NOTE | 2024-01-02 11:45 | DI.RAD.S_ITS ---
PROCEDURE: XR CHEST 1V INDICATIONS: chest pain TECHNIQUE: One view of the chest was acquired. COMPARISON: [facility], CR, XR CHEST 1V, 09/11/2023, 10:10. [facility], CR, XR CHEST 1V, 01/24/2023, 14:49. FINDINGS: Surgical changes and devices: None. Lungs and pleura: Lungs are clear. No pleural effusions or pneumothorax. Mediastinum: Mediastinal contours appear normal. Heart size is normal. Bones and chest wall: No suspicious bony lesions. Overlying soft tissues appear unremarkable. IMPRESSION: No acute cardiopulmonary abnormality is seen. Dictated by: Manjeet Wynn M.D. on 01/02/2024 at 12:08 Approved by: Manjeet Wynn M.D. on 01/02/2024 at 12:08
[2024-01-02 11:52] LABS: Add Manual Diff / Slide Review NO; Basophils Absolute Auto 100 /uL (0-100); Eosinophils Absolute Auto 200 /uL (0-450); Eosinophils Percent Auto 1.9 % (2-4); Hematocrit 48.3 % (36-46); Hemoglobin 15.9 g/dL (12.0-16.0); Lymphocytes Absolute Auto 2100 /uL (1100-4500); Lymphocytes Percent Auto 23.3 % (25-40); Mean Corpuscular HGB Conc 32.9 % (30-36); Mean Corpuscular Hemoglobin 30.7 PG (26-34); Mean Corpuscular Volume 93.2 fL (80-100); Monocytes Absolute Auto 800 /uL (0-900); Monocytes Percent Auto 8.8 % (3-14); Neutrophils Absolute Auto 5900 /uL (1500-7000); Platelet Count 247 X10^3/uL (150-400); Red Blood Cell Count 5.18 X10^6/uL (4.0-5.2); Red Cell Distribution Width 14.1 % (11.6-14.8); White Blood Cell Count 9.1 X10^3/uL (4.5-11.0)
[2024-01-02 11:59] LABS: INR 1.2 (0.9-1.3); Prothrombin Time 13.5 SECONDS (9.4-12.5)
[2024-01-02 12:02] LABS: PTT Partial Thromboplastin Tim 48 SECONDS (25.1-36.5)
[2024-01-02 12:07] LABS: Alanine Aminotransferase 27 IU/L (<35); Albumin 4.2 g/dL (3.5-5.0); Albumin Globulin Ratio 1.4 (1.0-2.8); Alkaline Phosphatase 85 U/L (38-126); Aspartate Aminotransferase 33 IU/L (14-36); BUN Creatinine Ratio 18.9 (6-22); Bilirubin Total 0.7 mg/dL (0.2-1.3); Blood Urea Nitrogen 21 mg/dL (7-17); Calcium 9.7 mg/dL (8.4-10.2); Carbon Dioxide 25 mmol/L (22-32); Chloride 112 mmol/L (98-107); Creatine Kinase 70 U/L (30-135); Estimated Glomerular Filt Rate 52 mL/min (>60); Globulin 3.1 g/dL (1.7-4.1); Glucose 128 mg/dL (80-110); HEMOLYSIS 27 (0-50); Lipase 91 U/L (23-300); Magnesium 2.2 mg/dL (1.6-2.3); Potassium 4.3 mmol/L (3.4-5.1); Sodium 144 mmol/L (137-145); Total Protein 7.3 g/dL (6.3-8.2)
[2024-01-02 12:18] LABS: Troponin I < 0.012 ng/mL (0.01-0.034)
--- NOTE | 2024-01-02 12:32 | ED.CHESTPAIN ---
HPI - Chest Pain General Chief Complaint: Chest Pain Stated Complaint: chest pain Time Seen by Provider: 01/02/24 12:32 History of Present Illness HPI narrative: Patient 73-year-old female history of atrial fibrillation and atrial flutter on Eliquis, diabetes presenting today left-sided chest pain. She was in the bathroom getting ready this morning when she had left-sided chest pain radiating down her left arm. No significant shortness of breath. She took 1 of her 's nitros, which seem to help a lot. She has never had coronary artery disease. She has actually had 3 different ablation in his scheduled for another next month. She has not noted disease and a rapid rate. She has no cough or shortness of breath. Related Data Home Medications Medication Instructions Recorded Confirmed aspirin 81 mg chewable tablet 81 mg PO QAM 07/26/20 12/23/21 atenolol 25 mg tablet 25 mg PO DAILY 06/25/21 12/23/21 ezetimibe 10 mg tablet 10 mg PO DAILY 06/25/21 12/23/21 levothyroxine 150 mcg tablet 150 mcg PO DAILY 06/25/21 12/23/21 (Synthroid) multivitamin 1 tab PO DAILY ##0 06/25/21 12/23/21 omega-3 fatty acids-vitamin E 1 cap PO DAILY 06/25/21 12/23/21 1,000 mg capsule furosemide 20 mg tablet 10 mg PO QAM 07/09/21 12/23/21 apixaban 5 mg tablet (Eliquis) 5 mg PO BID 07/22/21 12/23/21 cholecalciferol (vitamin D3) 50 50 mcg PO DAILY 07/22/21 12/23/21 mcg (2,000 unit) capsule potassium chloride 10 mEq 20 meq PO DAILY 07/22/21 12/23/21 capsule,extended release Previous Rx's Medication Instructions Recorded ondansetron 4 mg disintegrating 4 mg PO Q8H PRN nausea and 06/24/21 tablet vomiting #10 tabs tramadol 50 mg tablet 50 mg PO Q8H PRN pain #14 tabs 02/28/22 kjfguviaep-bpkltoanisqzc-foiklyyx 1 cap PO Q6H PRN pain #10 caps 05/30/22 50 mg-300 mg-40 mg capsule (Fioricet) ondansetron 4 mg disintegrating 4 mg PO Q6-8H PRN nausea and 06/15/22 tablet vomiting #10 tabs rizatriptan 10 mg tablet (Maxalt) 10 mg PO Q2-4H PRN migraine 06/16/22 headache #10 tabs nortriptyline 10 mg capsule 10 mg PO BEDTIME #30 caps 06/17/22 prednisone 20 mg tablet 40 mg (2 x 20 mg) PO DAILY #10 tabs 06/17/22 rimegepant 75 mg disintegrating 75 mg PO Q OTHER DAY PRN migraine 06/17/22 tablet headache #10 tabs metoclopramide HCl 10 mg tablet 10 mg PO Q6H PRN nausea and 06/18/22 (Reglan) vomiting #14 tabs lorazepam 0.5 mg tablet (Ativan) 0.5 mg PO BID PRN nausea and 06/19/22 vomiting #10 tabs diazepam 5 mg tablet (Valium) 5 mg PO BID-QID PRN muscle spasm 08/08/22 #10 tabs hydrocodone 5 mg-acetaminophen 325 1 tab PO Q4-6H PRN pain #10 tabs 08/08/22 mg tablet ketorolac 10 mg tablet 10 mg PO Q6H PRN pain #14 tabs 08/08/22 lidocaine 5 % topical patch 1 patch topical DAILY #15 ea 08/08/22 (Lidoderm) furosemide 20 mg tablet (Lasix) 20 mg PO DAILY #3 tabs 01/23/23 isosorbide mononitrate 30 mg 30 mg PO DAILY #30 tabs 01/24/23 tablet,extended release 24 hr diazepam 5 mg tablet (Valium) 5 mg PO BID-QID PRN muscle spasm 03/12/23 #10 tabs hydrocodone 5 mg-acetaminophen 325 1 tab PO Q4-6H PRN pain #10 tabs 03/12/23 mg tablet methylprednisolone 4 mg tablets in See Rx Instructions PO .COMPLEX 03/12/23 a dose pack (Medrol (Jabier)) #21 ea hydrocodone 5 mg-acetaminophen 325 1 tab PO QID PRN pain #10 tabs 09/11/23 mg tablet ondansetron 4 mg disintegrating 4 mg PO Q8H PRN nausea and 09/17/23 tablet vomiting #10 tabs metoclopramide HCl 10 mg tablet 10 mg PO Q6H PRN nausea and 09/19/23 (Reglan) vomiting #14 tabs morphine 15 mg immediate release 15 mg PO Q6H PRN pain #10 tabs 09/19/23 tablet morphine 15 mg immediate release 15 mg PO Q6H PRN pain #15 tabs 09/19/23 tablet naloxone 4 mg/actuation nasal 4 mg intranasal Q2M #2 ea 09/19/23 spray (Narcan) wpidnnngfj-bpikiqkyqwoql-oguvoczk 1 cap PO Q4-6H PRN pain #14 caps 10/10/23 50 mg-300 mg-40 mg capsule (Fioricet) isosorbide mononitrate 60 mg 60 mg PO QAM #30 tabs 01/02/24 tablet,extended release 24 hr Allergies Allergy/AdvReac Type Severity Reaction Status Date / Time lisinopril Allergy Severe Anaphylaxis Verified 10/07/23 10:21 metformin AdvReac Vomiting Verified 10/07/23 10:21 Patient History Medical History UTI (urinary tract infection) Facet arthropathy, lumbar Atrial fibrillation Lumbar radiculopathy Tinnitus Nose fracture (~06/29/21) HLD (hyperlipidemia) Heart murmur Chronic pancreatitis Depression Chronic back pain Breast cancer Migraine headache Hypothyroidism Hypertension Surgical History Hx of tonsillectomy History of colonoscopy Hx of oophorectomy History of hysterectomy Hx of breast surgery Hx of cholecystectomy Family History Father Brain tumor Congestive heart failure Mother Hypertension Stroke Grandfather Stroke Social History household members: spouse Smoking Status: Former smoker alcohol intake: current Smoking Status: Former smoker tobacco type: cigarettes alcohol intake frequency: a few times a month Alcohol type: wine Substance Use Type: does not use Exam Initial Vital Signs Initial Vital Signs: Vital Signs Pulse Rate 66 01/02/24 11:41 Pulse Oximetry 98 01/02/24 11:41 GENERAL: Alert 73-year-old female and in [no acute] distress. HEENT: Head atraumatic,EOMI, pupils reactive, face symmetric, [moist] mucous membranes CARDIOVASCULAR: Regular rate and rhythm without murmurs, rubs or gallops. RESPIRATORY: Breath sounds equal bilaterally, no wheezes rales or rhonchi. ABDOMEN: Soft, nontender. Normoactive bowel sounds all 4 quadrants. No guarding or rebound. EXTREMITIES: Normal range of motion, no clubbing or edema. Neurovascularly intact NEUROLOGICAL: Alert and oriented x4.Normal gait and speech. SKIN: Warm, dry, no laceration, no petechiae, no rashes or lesions. Scores HEART Score Heart Score history: Highly Suspicious Heart Score EKG: Normal Heart Score Age: > or = 65 years old Heart Score risk factors: 1-2 risk factors Heart Score troponin: < or = to normal limit Heart Score Total: 5 Course Orders Ordered: ED Orders 01/02/24 11:45 XR chest 1V Stat Complete Blood Count AUTO DIFF Stat Comprehensive Metabolic Panel Stat Lipase Stat Magnesium Stat PTT Partial Thromboplastin Cuco Stat Prothrombin Time INR Stat Troponin & CK Cardiac Panel Stat EKG-12 Lead Stat 01/02/24 12:45 EKG-12 Lead Stat 01/02/24 13:45 Troponin I Stat Discontinued Medications Acetaminophen (Acetaminophen 325 Mg Tablet) 975 mg PO NOW ONE Stop: 01/02/24 15:50 Last Admin: 01/02/24 16:01 Dose: 975 mg Documented By: VASQUEZ Aspirin (Aspirin 81 Mg Chew Tab) 243 mg PO NOW ONE Stop: 01/02/24 12:53 Last Admin: 01/02/24 12:55 Dose: 243 mg Documented By: KEYONA Nitroglycerin (Nitroglycerin 0.4 Mg Sl Tab) 0.4 mg SL [id number] PRN PRN Reason: Chest Pain Last Admin: 01/02/24 12:49 Dose: 0.4 mg Documented By: KEYONA Vital Signs Vital signs: Vital Signs - 8 hr 01/02/24 11:41 01/02/24 11:43 01/02/24 12:00 Temperature 97.6 F Pulse Rate 66 68 67 Respiratory Rate 16 12 Blood Pressure 146/70 H Pulse Oximetry 98 97 97 Oxygen Delivery Method Room Air 01/02/24 12:30 01/02/24 12:37 01/02/24 12:37 Temperature Pulse Rate 67 66 Respiratory Rate 19 20 Blood Pressure 132/73 Pulse Oximetry 96 96 Oxygen Delivery Method Room Air 01/02/24 12:48 01/02/24 12:48 01/02/24 12:49 Temperature Pulse Rate 66 68 Respiratory Rate 15 Blood Pressure 135/73 135/73 Pulse Oximetry 98 Oxygen Delivery Method 01/02/24 12:56 01/02/24 12:57 01/02/24 12:57 Temperature Pulse Rate 66 66 Respiratory Rate 20 15 Blood Pressure 97/60 Pulse Oximetry 96 94 Oxygen Delivery Method 01/02/24 13:00 01/02/24 13:00 01/02/24 13:30 Temperature Pulse Rate 67 67 Respiratory Rate 13 15 Blood Pressure 95/54 L Pulse Oximetry 96 94 Oxygen Delivery Method 01/02/24 13:41 01/02/24 13:41 01/02/24 14:00 Temperature Pulse Rate 66 Respiratory Rate 19 Blood Pressure 106/57 L 106/61 Pulse Oximetry 96 Oxygen Delivery Method 01/02/24 14:00 01/02/24 14:30 01/02/24 14:30 Temperature Pulse Rate 66 66 Respiratory Rate 14 17 Blood Pressure 122/65 Pulse Oximetry 96 97 Oxygen Delivery Method 01/02/24 15:00 01/02/24 15:00 01/02/24 15:30 Temperature Pulse Rate 66 66 Respiratory Rate 13 23 Blood Pressure 133/70 Pulse Oximetry 98 98 Oxygen Delivery Method 01/02/24 15:31 01/02/24 15:31 01/02/24 16:00 Temperature Pulse Rate 66 Respiratory Rate 15 Blood Pressure 128/84 125/68 Pulse Oximetry 97 Oxygen Delivery Method 01/02/24 16:00 Temperature Pulse Rate 66 Respiratory Rate 16 Blood Pressure Pulse Oximetry 98 Oxygen Delivery Method MDM - Chest Pain Lab Data 01/02/24 11:45 01/02/24 11:45 Labs: Lab Results 01/02/24 01/02/24 Range/Units 11:45 13:45 WBC 9.1 (4.5-11.0) X10^3/uL RBC 5.18 (4.0-5.2) X10^6/uL Hgb 15.9 (12.0-16.0) g/dL Hct 48.3 H (36-46) % MCV 93.2 (80-100) fL MCH 30.7 (26-34) PG MCHC 32.9 (30-36) % RDW 14.1 (11.6-14.8) % Plt Count 247 (150-400) X10^3/uL Neut % (Auto) 65.0 (50-75) % Lymph % (Auto) 23.3 L (25-40) % [place] % (Auto) 8.8 (3-14) % Eos % (Auto) 1.9 L (2-4) % Baso % (Auto) 1.0 (0-2) % Neut # (Auto) 5900 (4588-8015) /uL Lymph # (Auto) 2100 (0712-9421) /uL [place] # (Auto) 800 (0-900) /uL Eos # (Auto) 200 (0-450) /uL Baso # (Auto) 100 (0-100) /uL PT 13.5 H (9.4-12.5) SECONDS INR 1.2 (0.9-1.3) APTT 48 H (25.1-36.5) SECONDS Sodium 144 (137-145) mmol/L Potassium 4.3 (3.4-5.1) mmol/L Chloride 112 H (98-107) mmol/L Carbon Dioxide 25 (22-32) mmol/L BUN 21 H (7-17) mg/dL Creatinine 1.11 H (0.52-1.04) mg/dL Estimated GFR 52 L (>60) mL/min BUN/Creatinine Ratio 18.9 (6-22) Glucose 128 H (80-110) mg/dL Calcium 9.7 (8.4-10.2) mg/dL Magnesium 2.2 (1.6-2.3) mg/dL Total Bilirubin 0.7 (0.2-1.3) mg/dL AST 33 (14-36) IU/L ALT 27 (<35) IU/L Alkaline Phosphatase 85 (38-126) U/L Total Creatine Kinase 70 (30-135) U/L Troponin I < 0.012 < 0.012 (0.01-0.034) ng/mL Total Protein 7.3 (6.3-8.2) g/dL Albumin 4.2 (3.5-5.0) g/dL Globulin 3.1 (1.7-4.1) g/dL Albumin/Globulin Ratio 1.4 (1.0-2.8) Lipase 91 (23-300) U/L Imaging Data Chest x-ray: Radiologist's Impression: PROCEDURE: XR CHEST 1V INDICATIONS: chest pain TECHNIQUE: One view of the chest was acquired. COMPARISON: [facility], CR, XR CHEST 1V, 09/11/2023, 10:10. [facility], CR, XR CHEST 1V, 01/24/2023, 14:49. FINDINGS: Surgical changes and devices: None. Lungs and pleura: Lungs are clear. No pleural effusions or pneumothorax. Mediastinum: Mediastinal contours appear normal. Heart size is normal. Bones and chest wall: No suspicious bony lesions. Overlying soft tissues appear unremarkable. IMPRESSION: No acute cardiopulmonary abnormality is seen. Dictated by: Manjeet Wynn M.D. on 01/02/2024 at 12:08 ECG Data Interpretation: EKG 1. Atrial flutter rate 67 T-wave inversion noted in lead 3 similar to previous EKGs no acute ST elevation EKG 2. Persistent atrial flutter persistent T-wave inversion no changes from prior MDM Narrative Medical decision making narrative: Patient is a 73-year-old female history of atrial flutter presenting today with left-sided chest pain radiating down her arm. It resolved with nitro at home she came in to be evaluated for persistent chest pain. She received a 2nd nitro and it has been chest pain-free. Blood work has been reviewed she is 2- troponins no ROSA or other clinical abnormalities Chest x-ray has been reviewed EKG does not show acute ischemia persistent T-wave inversions 1540 Dr. Eric matthew from [facility] has been updated patient's symptoms test results. He reviewed patient's records at [facility]. Reports that in 2022 she had a heart catheterization which showed some microvascular dysfunction. He thinks that this is probably from her atrial flutter. She was previously on Ranexa though I do not see Ranexa on her med list now [facility] Imdur. At this time he recommends increasing her Imdur to 60 mg once a day. Patient has been chest pain-free after her 2nd nitro complaining only of a headache. Discussed with her increasing her Imdur she is unsure unsure of what medications to take. She understands and will follow-up with Cardiology but this time does not need admission. Discharge Plan Departure Patient Disposition: Home Clinical Impression: Stable angina Instructions: DI for Angina Activity Restrictions/Additional Instructions: *You have been diagnosed with angina *What to do: At this time I spoke with Dr. Eric matthew with [facility]. He recommended increasing Imdur to help with your chest pain. He agrees with follow-up for your ablation *Continue to take medications as directed Imdur 60 mg daily *Follow up with your primary care provider in 2-3 days or call [phone] Follow-up with Cardiology at [facility] *Return to ER if you should have increasing chest pain elevated heart rate fluttering shortness of breath [or] any new, worsening or concerning symptoms Prescriptions: New isosorbide mononitrate 60 mg tablet extended release 24 hr 60 mg PO QAM Qty: 30 0RF No Action aspirin 81 mg Tablet,Chewable 81 mg PO QAM ondansetron 4 mg tablet,disintegrating 4 mg PO Q8H PRN (Reason: nausea and vomiting) Qty: 10 0RF furosemide 20 mg Tablet 10 mg PO QAM [id number] [Fioricet] 50-300-40 mg capsule 1 cap PO Q6H PRN (Reason: pain) Qty: 10 0RF ondansetron 4 mg tablet,disintegrating 4 mg PO Q6-8H PRN (Reason: nausea and vomiting) Qty: 10 0RF rizatriptan [Maxalt] 10 mg tablet 10 mg PO Q2-4H PRN (Reason: migraine headache) Qty: 10 0RF Rx Instructions: do not exceed 3 doses per 24 hrs furosemide [Lasix] 20 mg tablet 20 mg PO DAILY Qty: 3 0RF ondansetron 4 mg tablet,disintegrating 4 mg PO Q8H PRN (Reason: nausea and vomiting) Qty: 10 0RF multivitamin Tablet 1 tab PO DAILY Qty: 0 atenolol 25 mg Tablet 25 mg PO DAILY levothyroxine [Synthroid] 150 mcg Tablet 150 mcg PO DAILY ezetimibe 10 mg Tablet 10 mg PO DAILY omega-3 fatty acids-vitamin E 1,000 mg Capsule 1 cap PO DAILY tramadol 50 mg tablet 50 mg PO Q8H PRN (Reason: pain) Qty: 14 0RF prednisone 20 mg tablet 40 mg PO DAILY Qty: 10 0RF rimegepant 75 mg tablet,disintegrating 75 mg PO Q OTHER DAY PRN (Reason: migraine headache) Qty: 10 0RF nortriptyline 10 mg capsule 10 mg PO BEDTIME Qty: 30 0RF metoclopramide HCl [Reglan] 10 mg tablet 10 mg PO Q6H PRN (Reason: nausea and vomiting) Qty: 14 0RF lorazepam [Ativan] 0.5 mg tablet 0.5 mg PO BID PRN (Reason: nausea and vomiting) Qty: 10 0RF hydrocodone-acetaminophen 5-325 mg tablet 1 tab PO Q4-6H PRN (Reason: pain) Qty: 10 0RF ketorolac 10 mg tablet 10 mg PO Q6H PRN (Reason: pain) Qty: 14 0RF lidocaine [Lidoderm] 5 % adhesive patch,medicated 1 patch TOP DAILY Qty: 15 0RF Rx Instructions: leave on most painful area for 12 hrs diazepam [Valium] 5 mg tablet 5 mg PO BID-QID PRN (Reason: muscle spasm) Qty: 10 0RF isosorbide mononitrate 30 mg tablet extended release 24 hr 30 mg PO DAILY Qty: 30 0RF hydrocodone-acetaminophen 5-325 mg tablet 1 tab PO Q4-6H PRN (Reason: pain) Qty: 10 0RF methylprednisolone [Medrol (Jabier)] 4 mg tablets,dose pack See Rx Instructions .ROUTE .COMPLEX Qty: 21 0RF Rx Instructions: orally per package directions diazepam [Valium] 5 mg tablet 5 mg PO BID-QID PRN (Reason: muscle spasm) Qty: 10 0RF hydrocodone-acetaminophen 5-325 mg tablet 1 tab PO QID PRN (Reason: pain) Qty: 10 0RF morphine 15 mg tablet 15 mg PO Q6H PRN (Reason: pain) Qty: 10 0RF naloxone [Narcan] 4 mg/actuation spray,non-aerosol 4 mg intranasal Q2M Qty: 2 0RF Rx Instructions: spray 1 dose into ONE nostril; alternate nostrils w each dose until help arrives metoclopramide HCl [Reglan] 10 mg tablet 10 mg PO Q6H PRN (Reason: nausea and vomiting) Qty: 14 0RF morphine 15 mg tablet 15 mg PO Q6H PRN (Reason: pain) Qty: 15 0RF glmldseace-wftakvvqwfyei-eosy [Fioricet] 50-300-40 mg capsule 1 cap PO Q4-6H PRN (Reason: pain) Qty: 14 0RF potassium chloride 10 mEq capsule, extended release 20 meq PO DAILY cholecalciferol (vitamin D3) 50 mcg (2,000 unit) capsule 50 mcg PO DAILY Eliquis 5 mg tablet 5 mg PO BID Referrals: Yuli Lang PA-C [Primary Care Provider] - Stand Alone Forms: Patient Portal/API
[2024-01-02] MEDS: NITROGLYCERIN 0.4 MG SL TAB SL (12:49)
--- NOTE | 2024-01-02 12:49 | PC.NURSE ---
Patient reports some mild discomfort in left arm and under left arm. She states the initial nitro she took prior to arrival almost completely relieved her pain, except for this small amount of arm discomfort. Shanna is agreeable to 1 nitro at this time to see if we can relieve pain entirely.
--- NOTE | 2024-01-02 12:52 | PC.NURSE ---
Patient reports she took 81mg this morning. 243mg ordered at this time to be given per protocol.
[2024-01-02] MEDS: ASPIRIN 81 MG CHEW TAB 243 MG PO (12:55)
--- NOTE | 2024-01-02 12:56 | PC.NURSE ---
Within minutes following administration of 1 SL nitro 0.4mg, patient reports pain in left arm is completely relieved.
[2024-01-02 14:12] LABS: Troponin I < 0.012 ng/mL (0.01-0.034)
[2024-01-02] MEDS: ACETAMINOPHEN 325 MG TABLET 975 MG PO (16:01)
--- NOTE | 2024-01-02 16:20 | PC.NURSE ---
denies chest pain
== END 2024-01-02 16:21 | disposition home or self-care (01) ==
PROVIDERS: Emergency Provider Emergency Medicine; PCP Physician Assistant
DX: I20.89 Other forms of angina pectoris (principal); Z79.01 Long term (current) use of anticoagulants; Z79.899 Other long term (current) drug therapy
CPT/HCPCS: 36415; 71045; 80053; 82550; 83690; 83735; 84484; 85025; 85610; 85730; 93005; 93010; 99284

== ENCOUNTER 2024-01-20 13:13 | Emergency (ER) | payer MEDICARE, OTHER, SELFPAY ==
[2021-06-25 17:33] VITALS: BMI 28.1
[2024-01-20] VITALS (19 sets, daily range): BP systolic 114–160; BP diastolic 61–91; PULSE 61–100; RESP 9–24; TEMP 36.6; O2SAT 96–100; BMI 27.3
--- NOTE | 2024-01-20 13:25 | DI.RAD.S_ITS ---
PROCEDURE: XR CHEST 1V INDICATIONS: chest pain TECHNIQUE: One view of the chest was acquired. COMPARISON: [facility], CR, XR CHEST 1V, 01/02/2024, 11:47. FINDINGS: Surgical changes and devices: None. Lungs and pleura: Lungs are clear. No pleural effusions or pneumothorax. Mediastinum: Mediastinal contours appear normal. Heart size is normal. Bones and chest wall: No suspicious bony lesions. Overlying soft tissues appear unremarkable. IMPRESSION: No acute pulmonary process. Dictated by: Lolis Valdez M.D. on 01/20/2024 at 14:23 Approved by: Lolis Valdez M.D. on 01/20/2024 at 14:24
[2024-01-20 14:03] LABS: Add Manual Diff / Slide Review NO; Basophils Absolute Auto 100 /uL (0-100); Basophils Percent Auto 0.8 % (0-2); Eosinophils Absolute Auto 400 /uL (0-450); Eosinophils Percent Auto 4.1 % (2-4); Lymphocytes Absolute Auto 2200 /uL (1100-4500); Lymphocytes Percent Auto 22.8 % (25-40); Mean Corpuscular HGB Conc 32.6 % (30-36); Mean Corpuscular Hemoglobin 30.4 PG (26-34); Monocytes Absolute Auto 600 /uL (0-900); Monocytes Percent Auto 6.4 % (3-14); Neutrophils Absolute Auto 6400 /uL (1500-7000); Neutrophils Percent Auto 65.9 % (50-75); Platelet Count 222 X10^3/uL (150-400); Red Blood Cell Count 5.27 X10^6/uL (4.0-5.2); Red Cell Distribution Width 14.9 % (11.6-14.8); White Blood Cell Count 9.7 X10^3/uL (4.5-11.0)
[2024-01-20 14:14] LABS: INR 1.2 (0.9-1.3); Prothrombin Time 13.8 SECONDS (9.4-12.5)
[2024-01-20 14:19] LABS: Alanine Aminotransferase 24 IU/L (<35); Albumin 4.4 g/dL (3.5-5.0); Albumin Globulin Ratio 1.6 (1.0-2.8); Alkaline Phosphatase 88 U/L (38-126); Aspartate Aminotransferase 32 IU/L (14-36); BUN Creatinine Ratio 18.4 (6-22); Bilirubin Total 0.8 mg/dL (0.2-1.3); Blood Urea Nitrogen 21 mg/dL (7-17); Calcium 9.4 mg/dL (8.4-10.2); Carbon Dioxide 21 mmol/L (22-32); Chloride 113 mmol/L (98-107); Creatine Kinase 68 U/L (30-135); Estimated Glomerular Filt Rate 50 mL/min (>60); Globulin 2.7 g/dL (1.7-4.1); Glucose 135 mg/dL (80-110); HEMOLYSIS < 15 (0-50); Lipase 88 U/L (23-300); Magnesium 2.1 mg/dL (1.6-2.3); Potassium 3.8 mmol/L (3.4-5.1); Sodium 144 mmol/L (137-145); Total Protein 7.1 g/dL (6.3-8.2)
[2024-01-20 14:25] LABS: PTT Partial Thromboplastin Tim 44 SECONDS (25.1-36.5)
[2024-01-20 14:30] LABS: Troponin I < 0.012 ng/mL (0.01-0.034)
--- NOTE | 2024-01-20 16:54 | ED_ITS ---
HPI - Chest Pain General Chief Complaint: Chest Pain Stated Complaint: chest pain Time Seen by Provider: 01/20/24 13:48 Source: patient Mode of arrival: Ambulatory Limitations: no limitations History of Present Illness HPI narrative: Patient is a 73-year-old female who with history of atrial flutter on Eliquis, diabetes presents today with chest pain. She reports that while driving she had intense pressure radiated up to her jaw lasted for 3 minutes. She had to fur puller to the side of the road and then came straight to the ER. She was seen by myself on January 01 for something similar she says this pain was different appearing during that visit I spoke with her water pipe installer Dr. Reyes who recommended increased Imdur to 60 mg she reports that since then she thinks maybe this has helped. She has known microvascular dysfunction. She is scheduled for an ablation 3rd. She has no known coronary artery disease. Related Data Home Medications Medication Instructions Recorded Confirmed aspirin 81 mg chewable tablet 81 mg PO QAM 07/26/20 12/23/21 atenolol 25 mg tablet 25 mg PO DAILY 06/25/21 12/23/21 ezetimibe 10 mg tablet 10 mg PO DAILY 06/25/21 12/23/21 levothyroxine 150 mcg tablet 150 mcg PO DAILY 06/25/21 12/23/21 (Synthroid) multivitamin 1 tab PO DAILY ##0 06/25/21 12/23/21 omega-3 fatty acids-vitamin E 1 cap PO DAILY 06/25/21 12/23/21 1,000 mg capsule furosemide 20 mg tablet 10 mg PO QAM 07/09/21 12/23/21 apixaban 5 mg tablet (Eliquis) 5 mg PO BID 07/22/21 12/23/21 cholecalciferol (vitamin D3) 50 50 mcg PO DAILY 07/22/21 12/23/21 mcg (2,000 unit) capsule potassium chloride 10 mEq 20 meq PO DAILY 07/22/21 12/23/21 capsule,extended release Previous Rx's Medication Instructions Recorded ondansetron 4 mg disintegrating 4 mg PO Q8H PRN nausea and 06/24/21 tablet vomiting #10 tabs tramadol 50 mg tablet 50 mg PO Q8H PRN pain #14 tabs 02/28/22 bsukoodgms-etqdhuakkghko-jwlkpbod 1 cap PO Q6H PRN pain #10 caps 05/30/22 50 mg-300 mg-40 mg capsule (Fioricet) ondansetron 4 mg disintegrating 4 mg PO Q6-8H PRN nausea and 06/15/22 tablet vomiting #10 tabs rizatriptan 10 mg tablet (Maxalt) 10 mg PO Q2-4H PRN migraine 06/16/22 headache #10 tabs nortriptyline 10 mg capsule 10 mg PO BEDTIME #30 caps 06/17/22 prednisone 20 mg tablet 40 mg (2 x 20 mg) PO DAILY #10 tabs 06/17/22 rimegepant 75 mg disintegrating 75 mg PO Q OTHER DAY PRN migraine 06/17/22 tablet headache #10 tabs metoclopramide HCl 10 mg tablet 10 mg PO Q6H PRN nausea and 06/18/22 (Reglan) vomiting #14 tabs lorazepam 0.5 mg tablet (Ativan) 0.5 mg PO BID PRN nausea and 06/19/22 vomiting #10 tabs diazepam 5 mg tablet (Valium) 5 mg PO BID-QID PRN muscle spasm 08/08/22 #10 tabs hydrocodone 5 mg-acetaminophen 325 1 tab PO Q4-6H PRN pain #10 tabs 08/08/22 mg tablet ketorolac 10 mg tablet 10 mg PO Q6H PRN pain #14 tabs 08/08/22 lidocaine 5 % topical patch 1 patch topical DAILY #15 ea 08/08/22 (Lidoderm) furosemide 20 mg tablet (Lasix) 20 mg PO DAILY #3 tabs 01/23/23 isosorbide mononitrate 30 mg 30 mg PO DAILY #30 tabs 01/24/23 tablet,extended release 24 hr diazepam 5 mg tablet (Valium) 5 mg PO BID-QID PRN muscle spasm 03/12/23 #10 tabs hydrocodone 5 mg-acetaminophen 325 1 tab PO Q4-6H PRN pain #10 tabs 03/12/23 mg tablet methylprednisolone 4 mg tablets in See Rx Instructions PO .COMPLEX 03/12/23 a dose pack (Medrol (Jabier)) #21 ea hydrocodone 5 mg-acetaminophen 325 1 tab PO QID PRN pain #10 tabs 09/11/23 mg tablet ondansetron 4 mg disintegrating 4 mg PO Q8H PRN nausea and 09/17/23 tablet vomiting #10 tabs metoclopramide HCl 10 mg tablet 10 mg PO Q6H PRN nausea and 09/19/23 (Reglan) vomiting #14 tabs morphine 15 mg immediate release 15 mg PO Q6H PRN pain #10 tabs 09/19/23 tablet morphine 15 mg immediate release 15 mg PO Q6H PRN pain #15 tabs 09/19/23 tablet naloxone 4 mg/actuation nasal 4 mg intranasal Q2M #2 ea 09/19/23 spray (Narcan) hcmvnhwkcn-yanvidovqkkvn-khbagnte 1 cap PO Q4-6H PRN pain #14 caps 10/10/23 50 mg-300 mg-40 mg capsule (Fioricet) isosorbide mononitrate 60 mg 60 mg PO QAM #30 tabs 01/02/24 tablet,extended release 24 hr Allergies Allergy/AdvReac Type Severity Reaction Status Date / Time lisinopril Allergy Severe Anaphylaxis Verified 10/07/23 10:21 metformin AdvReac Vomiting Verified 10/07/23 10:21 Patient History Medical History UTI (urinary tract infection) Facet arthropathy, lumbar Atrial fibrillation Lumbar radiculopathy Tinnitus Nose fracture (~06/29/21) HLD (hyperlipidemia) Heart murmur Chronic pancreatitis Depression Chronic back pain Breast cancer Migraine headache Hypothyroidism Hypertension Surgical History Hx of tonsillectomy History of colonoscopy Hx of oophorectomy History of hysterectomy Hx of breast surgery Hx of cholecystectomy Family History Father Brain tumor Congestive heart failure Mother Hypertension Stroke Grandfather Stroke Social History household members: spouse Smoking Status: Former smoker alcohol intake: current Smoking Status: Former smoker tobacco type: cigarettes alcohol intake frequency: a few times a month Alcohol type: wine Substance Use Type: does not use Exam Initial Vital Signs Initial Vital Signs: Vital Signs Temperature 98 F 01/20/24 13:19 Pulse Rate 61 01/20/24 13:19 Respiratory Rate 20 01/20/24 13:19 Blood Pressure 153/72 H 01/20/24 13:19 Pulse Oximetry 96 01/20/24 13:19 Oxygen Delivery Method Room Air 01/20/24 13:19 GENERAL: Alert slightly anxious 73-year-old female and in no acute distress. HEENT: Head atraumatic,EOMI, pupils reactive, face symmetric, moist mucous membranes CARDIOVASCULAR: Regular rate and rhythm without murmurs, rubs or gallops. RESPIRATORY: Breath sounds equal bilaterally, no wheezes rales or rhonchi. ABDOMEN: Soft, nontender. Normoactive bowel sounds all 4 quadrants. No guarding or rebound. EXTREMITIES: Normal range of motion, no clubbing or edema. Neurovascularly intact NEUROLOGICAL: Alert and oriented x4.Normal gait and speech. SKIN: Warm, dry, no laceration, no petechiae, no rashes or lesions. Course Orders Ordered: ED Orders 01/20/24 13:25 XR chest 1V Stat 01/20/24 13:31 EKG-12 Lead Stat 01/20/24 13:37 Complete Blood Count AUTO DIFF Stat Comprehensive Metabolic Panel Stat Lipase Stat Magnesium Stat PTT Partial Thromboplastin Cuco Stat Prothrombin Time INR Stat Troponin & CK Cardiac Panel Stat 01/20/24 17:03 Trop I [Troponin I] Stat Discontinued Medications Aspirin (Aspirin 81 Mg Chew Tab) 324 mg PO NOW ONE Stop: 01/20/24 13:26 Last Admin: 01/20/24 18:44 Dose: Not Given Documented By: BEVERLY Nitroglycerin (Nitroglycerin 0.4 Mg Sl Tab) 0.4 mg SL [id number] PRN PRN Reason: Chest Pain Last Admin: 01/20/24 17:25 Dose: 0.4 mg Documented By: NELY Vital Signs Vital signs: Vital Signs - 8 hr 01/20/24 13:19 01/20/24 15:04 01/20/24 15:06 Temperature 98 F Pulse Rate 61 67 66 Respiratory Rate 20 11 L Blood Pressure 153/72 H Pulse Oximetry 96 99 99 Oxygen Delivery Method Room Air 01/20/24 15:06 01/20/24 15:30 01/20/24 15:30 Temperature Pulse Rate 68 Respiratory Rate 9 L Blood Pressure 142/76 H 120/61 Pulse Oximetry 97 Oxygen Delivery Method 01/20/24 16:00 01/20/24 16:00 01/20/24 16:30 Temperature Pulse Rate 67 66 Respiratory Rate 12 18 Blood Pressure 128/68 Pulse Oximetry 99 99 Oxygen Delivery Method 01/20/24 16:30 01/20/24 17:00 01/20/24 17:00 Temperature Pulse Rate 86 Respiratory Rate 19 Blood Pressure 126/66 160/91 H Pulse Oximetry 100 Oxygen Delivery Method 01/20/24 17:25 01/20/24 17:30 01/20/24 17:30 Temperature Pulse Rate 92 H 100 H Respiratory Rate 11 L Blood Pressure 160/91 H 140/81 Pulse Oximetry 97 Oxygen Delivery Method 01/20/24 17:35 01/20/24 17:35 01/20/24 17:40 Temperature Pulse Rate 93 H Respiratory Rate 11 L Blood Pressure 125/66 121/72 Pulse Oximetry 96 Oxygen Delivery Method 01/20/24 17:40 01/20/24 17:45 01/20/24 17:45 Temperature Pulse Rate 89 68 Respiratory Rate 9 L 9 L Blood Pressure 124/70 Pulse Oximetry 96 97 Oxygen Delivery Method 01/20/24 17:50 01/20/24 17:50 01/20/24 17:55 Temperature Pulse Rate 88 92 H Respiratory Rate 12 20 Blood Pressure 126/78 Pulse Oximetry 97 97 Oxygen Delivery Method 01/20/24 17:55 01/20/24 18:00 01/20/24 18:00 Temperature Pulse Rate 84 Respiratory Rate 14 Blood Pressure 126/65 134/62 Pulse Oximetry 98 Oxygen Delivery Method 01/20/24 18:05 01/20/24 18:05 01/20/24 18:10 Temperature Pulse Rate 90 67 Respiratory Rate 12 14 Blood Pressure 146/67 H Pulse Oximetry 97 97 Oxygen Delivery Method 01/20/24 18:10 01/20/24 18:15 01/20/24 18:15 Temperature Pulse Rate 79 Respiratory Rate 11 L Blood Pressure 126/70 124/72 Pulse Oximetry 98 Oxygen Delivery Method 01/20/24 18:20 01/20/24 18:20 Temperature Pulse Rate 76 Respiratory Rate 24 Blood Pressure 114/67 Pulse Oximetry 98 Oxygen Delivery Method MDM - Chest Pain Lab Data 01/20/24 13:37 01/20/24 13:37 Labs: Lab Results 01/20/24 01/20/24 Range/Units 13:37 17:03 WBC 9.7 (4.5-11.0) X10^3/uL RBC 5.27 H (4.0-5.2) X10^6/uL Hgb 16.0 (12.0-16.0) g/dL Hct 49.0 H (36-46) % MCV 93.0 (80-100) fL MCH 30.4 (26-34) PG MCHC 32.6 (30-36) % RDW 14.9 H (11.6-14.8) % Plt Count 222 (150-400) X10^3/uL Neut % (Auto) 65.9 (50-75) % Lymph % (Auto) 22.8 L (25-40) % [place] % (Auto) 6.4 (3-14) % Eos % (Auto) 4.1 H (2-4) % Baso % (Auto) 0.8 (0-2) % Neut # (Auto) 6400 (3308-2360) /uL Lymph # (Auto) 2200 (8532-9998) /uL [place] # (Auto) 600 (0-900) /uL Eos # (Auto) 400 (0-450) /uL Baso # (Auto) 100 (0-100) /uL PT 13.8 H (9.4-12.5) SECONDS INR 1.2 (0.9-1.3) APTT 44 H (25.1-36.5) SECONDS Sodium 144 (137-145) mmol/L Potassium 3.8 (3.4-5.1) mmol/L Chloride 113 H (98-107) mmol/L Carbon Dioxide 21 L (22-32) mmol/L BUN 21 H (7-17) mg/dL Creatinine 1.14 H (0.52-1.04) mg/dL Estimated GFR 50 L (>60) mL/min BUN/Creatinine Ratio 18.4 (6-22) Glucose 135 H (80-110) mg/dL Calcium 9.4 (8.4-10.2) mg/dL Magnesium 2.1 (1.6-2.3) mg/dL Total Bilirubin 0.8 (0.2-1.3) mg/dL AST 32 (14-36) IU/L ALT 24 (<35) IU/L Alkaline Phosphatase 88 (38-126) U/L Total Creatine Kinase 68 (30-135) U/L Troponin I < 0.012 < 0.012 (0.01-0.034) ng/mL Total Protein 7.1 (6.3-8.2) g/dL Albumin 4.4 (3.5-5.0) g/dL Globulin 2.7 (1.7-4.1) g/dL Albumin/Globulin Ratio 1.6 (1.0-2.8) Lipase 88 (23-300) U/L Imaging Data Chest x-ray: Radiologist's Impression: PROCEDURE: XR CHEST 1V INDICATIONS: chest pain TECHNIQUE: One view of the chest was acquired. COMPARISON: [facility], , XR CHEST 1V, 01/02/2024, 11:47. FINDINGS: Surgical changes and devices: None. Lungs and pleura: Lungs are clear. No pleural effusions or pneumothorax. Mediastinum: Mediastinal contours appear normal. Heart size is normal. Bones and chest wall: No suspicious bony lesions. Overlying soft tissues appear unremarkable. IMPRESSION: No acute pulmonary process. Dictated by: Lolis Valdez M.D. on 01/20/2024 at 14:23 Approved by: Lolis Valdez M.D. on 01/20/2024 at 14:2 ECG Data Interpretation: Atrial flutter low voltage rate 76 ST changes similar to previous EKGs MDM Narrative Medical decision making narrative: MDM CC: Chest pain Complicating co-morbidities: Atrial flutter Corroborating data: [ ] Data collected from: Previous chart Medical records reviewed: yes Differential considered: Atrial flutter, acute coronary syndrome Exam documented above, pertinent findings include: Overall appears well with no acute distress Lab Test results independently reviewed as above. Pertinent findings: Negative troponin x2, creatinine stable 1.1 chloride stable labs overall appear stable Independently reviewed EKG as above no ischemic changes Imaging studies independently reviewed: Chest x-ray no acute cardiopulmonary process Consultations: [ ] Treatments: Nitro Re-evaluations: Patient did have some chest pain in the ED she received nitroglycerin and it has completely resolved Discussion: I previously saw patient about 2 weeks ago for the same at that time I did speak with her water pipe installer Dr. Reyes. She likely has microvascular disease secondary to atrial flutter. She is scheduled for an ablation. Her Imdur was increased she thinks that it is working. At this time she is 2- troponins no ischemic changes on her CT likely needs follow up with Cardiology and an ablation. At this time patient feels like she is able to go. Discharge Plan Departure Patient Disposition: Home Clinical Impression: Stable angina Instructions: DI for Angina Activity Restrictions/Additional Instructions: *You have been diagnosed with angina *What to do: At this time you must call and follow-up with your water pipe installer. I think this is related to your atrial flutter. *Continue to take medications as directed *Follow up with your primary care provider in 2-3 days or call [phone] *Return to ER if you should have increasing chest pain palpitations shortness of breath or any new, worsening or concerning symptoms Prescriptions: No Action aspirin 81 mg Tablet,Chewable 81 mg PO QAM ondansetron 4 mg tablet,disintegrating 4 mg PO Q8H PRN (Reason: nausea and vomiting) Qty: 10 0RF furosemide 20 mg Tablet 10 mg PO QAM tyljkepvzq-lfrmxkjxzwzka-lpvn [Fioricet] 50-300-40 mg capsule 1 cap PO Q6H PRN (Reason: pain) Qty: 10 0RF ondansetron 4 mg tablet,disintegrating 4 mg PO Q6-8H PRN (Reason: nausea and vomiting) Qty: 10 0RF rizatriptan [Maxalt] 10 mg tablet 10 mg PO Q2-4H PRN (Reason: migraine headache) Qty: 10 0RF Rx Instructions: do not exceed 3 doses per 24 hrs furosemide [Lasix] 20 mg tablet 20 mg PO DAILY Qty: 3 0RF ondansetron 4 mg tablet,disintegrating 4 mg PO Q8H PRN (Reason: nausea and vomiting) Qty: 10 0RF multivitamin Tablet 1 tab PO DAILY Qty: 0 atenolol 25 mg Tablet 25 mg PO DAILY levothyroxine [Synthroid] 150 mcg Tablet 150 mcg PO DAILY ezetimibe 10 mg Tablet 10 mg PO DAILY omega-3 fatty acids-vitamin E 1,000 mg Capsule 1 cap PO DAILY tramadol 50 mg tablet 50 mg PO Q8H PRN (Reason: pain) Qty: 14 0RF prednisone 20 mg tablet 40 mg PO DAILY Qty: 10 0RF rimegepant 75 mg tablet,disintegrating 75 mg PO Q OTHER DAY PRN (Reason: migraine headache) Qty: 10 0RF nortriptyline 10 mg capsule 10 mg PO BEDTIME Qty: 30 0RF metoclopramide HCl [Reglan] 10 mg tablet 10 mg PO Q6H PRN (Reason: nausea and vomiting) Qty: 14 0RF lorazepam [Ativan] 0.5 mg tablet 0.5 mg PO BID PRN (Reason: nausea and vomiting) Qty: 10 0RF hydrocodone-acetaminophen 5-325 mg tablet 1 tab PO Q4-6H PRN (Reason: pain) Qty: 10 0RF ketorolac 10 mg tablet 10 mg PO Q6H PRN (Reason: pain) Qty: 14 0RF lidocaine [Lidoderm] 5 % adhesive patch,medicated 1 patch TOP DAILY Qty: 15 0RF Rx Instructions: leave on most painful area for 12 hrs diazepam [Valium] 5 mg tablet 5 mg PO BID-QID PRN (Reason: muscle spasm) Qty: 10 0RF isosorbide mononitrate 30 mg tablet extended release 24 hr 30 mg PO DAILY Qty: 30 0RF hydrocodone-acetaminophen 5-325 mg tablet 1 tab PO Q4-6H PRN (Reason: pain) Qty: 10 0RF methylprednisolone [Medrol (Jabier)] 4 mg tablets,dose pack See Rx Instructions .ROUTE .COMPLEX Qty: 21 0RF Rx Instructions: orally per package directions diazepam [Valium] 5 mg tablet 5 mg PO BID-QID PRN (Reason: muscle spasm) Qty: 10 0RF hydrocodone-acetaminophen 5-325 mg tablet 1 tab PO QID PRN (Reason: pain) Qty: 10 0RF morphine 15 mg tablet 15 mg PO Q6H PRN (Reason: pain) Qty: 10 0RF naloxone [Narcan] 4 mg/actuation spray,non-aerosol 4 mg intranasal Q2M Qty: 2 0RF Rx Instructions: spray 1 dose into ONE nostril; alternate nostrils w each dose until help arrives metoclopramide HCl [Reglan] 10 mg tablet 10 mg PO Q6H PRN (Reason: nausea and vomiting) Qty: 14 0RF morphine 15 mg tablet 15 mg PO Q6H PRN (Reason: pain) Qty: 15 0RF tplaqapgxg-fmubmkswkkziz-cedp [Fioricet] 50-300-40 mg capsule 1 cap PO Q4-6H PRN (Reason: pain) Qty: 14 0RF isosorbide mononitrate 60 mg tablet extended release 24 hr 60 mg PO QAM Qty: 30 0RF potassium chloride 10 mEq capsule, extended release 20 meq PO DAILY cholecalciferol (vitamin D3) 50 mcg (2,000 unit) capsule 50 mcg PO DAILY Eliquis 5 mg tablet 5 mg PO BID Referrals: Yuli Lang PA-C [Primary Care Provider] - Stand Alone Forms: Patient Portal/API
[2024-01-20] MEDS: NITROGLYCERIN 0.4 MG SL TAB SL (17:25)
[2024-01-20 17:33] LABS: Troponin I < 0.012 ng/mL (0.01-0.034)
== END 2024-01-20 18:49 | disposition home or self-care (01) ==
PROVIDERS: Emergency Provider Emergency Medicine; PCP Physician Assistant
DX: I20.89 Other forms of angina pectoris (principal); R07.9 Chest pain, unspecified
CPT/HCPCS: 36415; 71045; 80053; 82550; 83690; 83735; 84484; 85025; 85610; 85730; 93005; 99284

== ENCOUNTER 2024-01-21 13:16 | Emergency (ER) | payer MEDICARE, OTHER, SELFPAY ==
[2021-06-25 17:33] VITALS: BMI 28.1
[2024-01-21] VITALS (9 sets, daily range): BP systolic 100–125; BP diastolic 57–68; PULSE 66–81; RESP 11–19; TEMP 36.4; O2SAT 98–99; BMI 27.3
--- NOTE | 2024-01-21 13:31 | DI.RAD.S_ITS ---
PROCEDURE: XR CHEST 1V INDICATIONS: chest pain TECHNIQUE: One view of the chest was acquired. COMPARISON: [facility], CR, XR CHEST 1V, 01/20/2024, 13:39. FINDINGS: Surgical changes and devices: None. Lungs and pleura: Lungs are clear. No pleural effusions or pneumothorax. Mediastinum: Mediastinal contours appear normal. Heart size is normal. Bones and chest wall: No suspicious bony lesions. Overlying soft tissues appear unremarkable. IMPRESSION: No acute cardiopulmonary abnormality is seen. Dictated by: Earle Terrazas M.D. on 01/21/2024 at 12:57 Approved by: Earle Terrazas M.D. on 01/21/2024 at 12:58
--- NOTE | 2024-01-21 14:02 | ED.GENADULT ---
HPI - General Adult General Chief complaint: Weakness Stated complaint: Chest Pain Time Seen by Provider: 01/21/24 13:25 Source: patient Mode of arrival: Ambulatory History of Present Illness HPI narrative: Patient is a 73-year-old female who is here for evaluation and was initially stated his chest pain although the patient states she was actually here for generalized body aches and fatigue. She was seen here in the emergency department yesterday for chest pain. Was subsequently discharged home. She states she has not currently having chest pain, shortness of breath, abdominal pain, sore throat. She thought that maybe she had a urinary tract infection but has not been able to produce a urine for us. No abdominal pain. No skin rashes. She stated that yesterday when she got home she felt generalized fatigue similar to what she has today but it is just worse this morning. Did not sleep very well last night. Did take an anti-inflammatory approximately 4 hours ago without much relief. Related Data Home Medications Medication Instructions Recorded Confirmed aspirin 81 mg chewable tablet 81 mg PO QAM 07/26/20 12/23/21 atenolol 25 mg tablet 25 mg PO DAILY 06/25/21 12/23/21 ezetimibe 10 mg tablet 10 mg PO DAILY 06/25/21 12/23/21 levothyroxine 150 mcg tablet 150 mcg PO DAILY 06/25/21 12/23/21 (Synthroid) multivitamin 1 tab PO DAILY ##0 06/25/21 12/23/21 omega-3 fatty acids-vitamin E 1 cap PO DAILY 06/25/21 12/23/21 1,000 mg capsule furosemide 20 mg tablet 10 mg PO QAM 07/09/21 12/23/21 apixaban 5 mg tablet (Eliquis) 5 mg PO BID 07/22/21 12/23/21 cholecalciferol (vitamin D3) 50 50 mcg PO DAILY 07/22/21 12/23/21 mcg (2,000 unit) capsule potassium chloride 10 mEq 20 meq PO DAILY 07/22/21 12/23/21 capsule,extended release Previous Rx's Medication Instructions Recorded ondansetron 4 mg disintegrating 4 mg PO Q8H PRN nausea and 06/24/21 tablet vomiting #10 tabs tramadol 50 mg tablet 50 mg PO Q8H PRN pain #14 tabs 02/28/22 nyxvekipls-yhrhuuknoxyvq-kaqmxsvz 1 cap PO Q6H PRN pain #10 caps 05/30/22 50 mg-300 mg-40 mg capsule (Fioricet) ondansetron 4 mg disintegrating 4 mg PO Q6-8H PRN nausea and 06/15/22 tablet vomiting #10 tabs rizatriptan 10 mg tablet (Maxalt) 10 mg PO Q2-4H PRN migraine 06/16/22 headache #10 tabs nortriptyline 10 mg capsule 10 mg PO BEDTIME #30 caps 06/17/22 prednisone 20 mg tablet 40 mg (2 x 20 mg) PO DAILY #10 tabs 06/17/22 rimegepant 75 mg disintegrating 75 mg PO Q OTHER DAY PRN migraine 06/17/22 tablet headache #10 tabs metoclopramide HCl 10 mg tablet 10 mg PO Q6H PRN nausea and 06/18/22 (Reglan) vomiting #14 tabs lorazepam 0.5 mg tablet (Ativan) 0.5 mg PO BID PRN nausea and 06/19/22 vomiting #10 tabs diazepam 5 mg tablet (Valium) 5 mg PO BID-QID PRN muscle spasm 08/08/22 #10 tabs hydrocodone 5 mg-acetaminophen 325 1 tab PO Q4-6H PRN pain #10 tabs 08/08/22 mg tablet ketorolac 10 mg tablet 10 mg PO Q6H PRN pain #14 tabs 08/08/22 lidocaine 5 % topical patch 1 patch topical DAILY #15 ea 08/08/22 (Lidoderm) furosemide 20 mg tablet (Lasix) 20 mg PO DAILY #3 tabs 01/23/23 isosorbide mononitrate 30 mg 30 mg PO DAILY #30 tabs 01/24/23 tablet,extended release 24 hr diazepam 5 mg tablet (Valium) 5 mg PO BID-QID PRN muscle spasm 03/12/23 #10 tabs hydrocodone 5 mg-acetaminophen 325 1 tab PO Q4-6H PRN pain #10 tabs 03/12/23 mg tablet methylprednisolone 4 mg tablets in See Rx Instructions PO .COMPLEX 03/12/23 a dose pack (Medrol (Jabier)) #21 ea hydrocodone 5 mg-acetaminophen 325 1 tab PO QID PRN pain #10 tabs 09/11/23 mg tablet ondansetron 4 mg disintegrating 4 mg PO Q8H PRN nausea and 09/17/23 tablet vomiting #10 tabs metoclopramide HCl 10 mg tablet 10 mg PO Q6H PRN nausea and 09/19/23 (Reglan) vomiting #14 tabs morphine 15 mg immediate release 15 mg PO Q6H PRN pain #10 tabs 09/19/23 tablet morphine 15 mg immediate release 15 mg PO Q6H PRN pain #15 tabs 09/19/23 tablet naloxone 4 mg/actuation nasal 4 mg intranasal Q2M #2 ea 09/19/23 spray (Narcan) zjrvdmkjas-nhulzsntyyiwf-fhlehuky 1 cap PO Q4-6H PRN pain #14 caps 10/10/23 50 mg-300 mg-40 mg capsule (Fioricet) isosorbide mononitrate 60 mg 60 mg PO QAM #30 tabs 01/02/24 tablet,extended release 24 hr Allergies Allergy/AdvReac Type Severity Reaction Status Date / Time lisinopril Allergy Severe Anaphylaxis Verified 01/21/24 13:24 metformin AdvReac Vomiting Verified 01/21/24 13:24 Review of Systems Review of Systems Narrative: See HPI Patient History Medical History UTI (urinary tract infection) Facet arthropathy, lumbar Atrial fibrillation Lumbar radiculopathy Tinnitus Nose fracture (~06/29/21) HLD (hyperlipidemia) Heart murmur Chronic pancreatitis Depression Chronic back pain Breast cancer Migraine headache Hypothyroidism Hypertension Surgical History Hx of tonsillectomy History of colonoscopy Hx of oophorectomy History of hysterectomy Hx of breast surgery Hx of cholecystectomy Family History Father Brain tumor Congestive heart failure Mother Hypertension Stroke Grandfather Stroke Social History household members: spouse Smoking Status: Former smoker alcohol intake: current Smoking Status: Former smoker tobacco type: cigarettes alcohol intake frequency: a few times a month Alcohol type: wine Substance Use Type: does not use Exam Initial Vital Signs Initial Vital Signs: Vital Signs Temperature 97.5 F L 01/21/24 13:25 Pulse Rate 67 01/21/24 13:25 Respiratory Rate 18 01/21/24 13:25 Blood Pressure 100/61 01/21/24 13:25 Pulse Oximetry 98 01/21/24 13:25 Oxygen Delivery Method Room Air 01/21/24 13:25 Const General: cooperative, comfortable and No ill appearing HENAZ Head: normal to inspection and normocephalic Resp Effort & Inspection: normal respiratory effort Auscultation: clear to auscultation bilaterally Cardio Rate: regular rate Rhythm: regular rhythm GI Inspection: normal to inspection and non-distended Skin General: no rashes or lesions noted Neuro General: patient alert, patient awake, patient oriented x3 and moves all extremities Cognition: normal cognition Speech: speech normal Extrem General: normal to inspection and capillary refill normal Course Orders Ordered: ED Orders 01/21/24 13:31 XR chest 1V Stat EKG-12 Lead Stat 01/21/24 14:30 Covid-19 + FLU A/B + RSV - PCR Stat 01/21/24 15:10 Complete Blood Count AUTO DIFF Stat Comprehensive Metabolic Panel Stat Lipase Stat Magnesium Stat PTT Partial Thromboplastin Cuco Stat Prothrombin Time INR Stat Troponin & CK Cardiac Panel Stat Discontinued Medications Acetaminophen (Acetaminophen 325 Mg Tablet) 650 mg PO NOW ONE Stop: 01/21/24 15:26 Last Admin: 01/21/24 15:33 Dose: 650 mg Documented By: DION Hydromorphone HCl (Hydromorphone 0.5 Mg Inj) 0.5 mg IV NOW ONE Stop: 01/21/24 17:11 Last Admin: 01/21/24 17:23 Dose: 0.5 mg Documented By: BRENDA Sodium Chloride (Normal Saline 0.9%) 1,000 mls @ 1,000 mls/hr IV BOLUS ONE Stop: 01/21/24 15:02 Last Infusion: 01/21/24 15:20 Dose: Infused Documented By: Admin: 01/21/24 14:25 Dose: 1,000 mls/hr Documented By: BRENDA Ketorolac Tromethamine (Ketorolac 30 Mg/Ml Vial) 30 mg IV NOW ONE Stop: 01/21/24 16:17 Last Admin: 01/21/24 16:26 Dose: 30 mg Documented By: DION Vital Signs Vital signs: Vital Signs - 8 hr 01/21/24 13:25 01/21/24 14:00 01/21/24 14:03 Temperature 97.5 F L Pulse Rate 67 67 Respiratory Rate 18 Blood Pressure 100/61 113/62 Pulse Oximetry 98 98 Oxygen Delivery Method Room Air 01/21/24 14:03 01/21/24 14:30 01/21/24 14:30 Temperature Pulse Rate 68 67 Respiratory Rate 15 14 Blood Pressure 102/57 L Pulse Oximetry 98 98 Oxygen Delivery Method Room Air 01/21/24 15:00 01/21/24 15:01 01/21/24 15:01 Temperature Pulse Rate 75 70 Respiratory Rate 19 11 L Blood Pressure 109/58 L Pulse Oximetry 99 99 Oxygen Delivery Method Room Air 01/21/24 15:30 01/21/24 15:30 Temperature Pulse Rate 73 Respiratory Rate 11 L Blood Pressure 125/61 Pulse Oximetry 98 Oxygen Delivery Method Room Air Medical Decision Making Medical Records Medical records reviewed: Yes I reviewed the patient's medical records. Lab Data Lab results reviewed: Yes I reviewed the patient's lab results. 01/21/24 15:10 01/21/24 15:10 Labs: Lab Results 01/21/24 01/21/24 Range/Units 14:30 15:10 WBC 8.5 (4.5-11.0) X10^3/uL RBC 4.82 (4.0-5.2) X10^6/uL Hgb 14.5 (12.0-16.0) g/dL Hct 45.1 (36-46) % MCV 93.4 (80-100) fL MCH 30.1 (26-34) PG MCHC 32.2 (30-36) % RDW 14.9 H (11.6-14.8) % Plt Count 202 (150-400) X10^3/uL Neut % (Auto) 64.4 (50-75) % Lymph % (Auto) 23.2 L (25-40) % [place] % (Auto) 8.1 (3-14) % Eos % (Auto) 3.5 (2-4) % Baso % (Auto) 0.8 (0-2) % Neut # (Auto) 5500 (8501-9317) /uL Lymph # (Auto) 2000 (4133-5633) /uL [place] # (Auto) 700 (0-900) /uL Eos # (Auto) 300 (0-450) /uL Baso # (Auto) 100 (0-100) /uL PT 14.9 H (9.4-12.5) SECONDS INR 1.3 (0.9-1.3) APTT 38 H (25.1-36.5) SECONDS Sodium 140 (137-145) mmol/L Potassium 4.3 (3.4-5.1) mmol/L Chloride 117 H (98-107) mmol/L Carbon Dioxide 20 L (22-32) mmol/L BUN 20 H (7-17) mg/dL Creatinine 1.06 H (0.52-1.04) mg/dL Estimated GFR 55 L (>60) mL/min BUN/Creatinine Ratio 18.9 (6-22) Glucose 89 (80-110) mg/dL Calcium 8.7 (8.4-10.2) mg/dL Magnesium 1.9 (1.6-2.3) mg/dL Total Bilirubin 0.9 (0.2-1.3) mg/dL AST 27 (14-36) IU/L ALT 20 (<35) IU/L Alkaline Phosphatase 79 (38-126) U/L Total Creatine Kinase 56 (30-135) U/L Troponin I < 0.012 (0.01-0.034) ng/mL Total Protein 5.8 L (6.3-8.2) g/dL Albumin 3.7 (3.5-5.0) g/dL Globulin 2.1 (1.7-4.1) g/dL Albumin/Globulin Ratio 1.8 (1.0-2.8) Lipase 65 (23-300) U/L SARS-CoV-2 (PCR) Negative (Negative) Influenza A (RT-PCR) Flu a negative (NEGATIVE) Influenza B (RT-PCR) Flu b negative (NEGATIVE) RSV (PCR) Negative (Negative) Urine Dip Bedside Urine Glucose 1000 mg/dl Bedside Urine Bilirubin - Negative Bedside Urine Ketone - Negative Urine Specific [place] 1.020 Bedside Urine Occult Blood - Negative Bedside Urine pH 6.0 Bedside Urine Protein - Negative Bedside Urine Urobilinogen - Negative Bedside Urine Nitrite - Negative Bedside Urine Leukocytes - Negative Esterase Point of care testing: Urine Dip Bedside Urine Glucose 1000 mg/dl Bedside Urine Bilirubin - Negative Bedside Urine Ketone - Negative Urine Specific [place] 1.020 Bedside Urine Occult Blood - Negative Bedside Urine pH 6.0 Bedside Urine Protein - Negative Bedside Urine Urobilinogen - Negative Bedside Urine Nitrite - Negative Bedside Urine Leukocytes - Negative Esterase Imaging Data Chest x-ray: Radiologist's Impression: PROCEDURE: XR CHEST 1V INDICATIONS: chest pain TECHNIQUE: One view of the chest was acquired. COMPARISON: [facility], CR, XR CHEST 1V, 01/20/2024, 13:39. FINDINGS: Surgical changes and devices: None. Lungs and pleura: Lungs are clear. No pleural effusions or pneumothorax. Mediastinum: Mediastinal contours appear normal. Heart size is normal. Bones and chest wall: No suspicious bony lesions. Overlying soft tissues appear unremarkable. IMPRESSION: No acute cardiopulmonary abnormality is seen. ECG Data Attestation: I personally reviewed and interpreted this ECG as follows: Interpretation: Sinus rhythm Ventricular rate is 68 Left axis deviation Normal QRS No ST T wave changes Repeat EKG Atrial flutter Ventricular rate of [address] T wave changes MDM Narrative Medical decision making narrative: Patient arrives with generalized malaise and body aches. Afebrile. No chest discomfort despite the stated complaint. No shortness of breath. No specific source of infection found. She was having headache. This improved with medications here in the ER. Labs unremarkable. No indication for antibiotics. Discussed all this with the patient. Patient is safe for discharge home. Discussed medications that she could try at home for the headache in the body aches. Recommend that she contacted her primary doctor for follow-up. She expressed understanding and agreement with plan. Discharge Plan Departure Patient Disposition: Home Clinical Impression: Body aches, Headache Instructions: DI for Headache Activity Restrictions/Additional Instructions: Recommend that you continue to take all of your medications as directed. Contact your primary care doctor for a follow-up. Return to the emergency department for new or worsening Prescriptions: No Action aspirin 81 mg Tablet,Chewable 81 mg PO QAM ondansetron 4 mg tablet,disintegrating 4 mg PO Q8H PRN (Reason: nausea and vomiting) Qty: 10 0RF furosemide 20 mg Tablet 10 mg PO QAM [id number]-sxaybatbwpjiu-yfus [Fioricet] 50-300-40 mg capsule 1 cap PO Q6H PRN (Reason: pain) Qty: 10 0RF ondansetron 4 mg tablet,disintegrating 4 mg PO Q6-8H PRN (Reason: nausea and vomiting) Qty: 10 0RF rizatriptan [Maxalt] 10 mg tablet 10 mg PO Q2-4H PRN (Reason: migraine headache) Qty: 10 0RF Rx Instructions: do not exceed 3 doses per 24 hrs furosemide [Lasix] 20 mg tablet 20 mg PO DAILY Qty: 3 0RF ondansetron 4 mg tablet,disintegrating 4 mg PO Q8H PRN (Reason: nausea and vomiting) Qty: 10 0RF multivitamin Tablet 1 tab PO DAILY Qty: 0 atenolol 25 mg Tablet 25 mg PO DAILY levothyroxine [Synthroid] 150 mcg Tablet 150 mcg PO DAILY ezetimibe 10 mg Tablet 10 mg PO DAILY omega-3 fatty acids-vitamin E 1,000 mg Capsule 1 cap PO DAILY tramadol 50 mg tablet 50 mg PO Q8H PRN (Reason: pain) Qty: 14 0RF prednisone 20 mg tablet 40 mg PO DAILY Qty: 10 0RF rimegepant 75 mg tablet,disintegrating 75 mg PO Q OTHER DAY PRN (Reason: migraine headache) Qty: 10 0RF nortriptyline 10 mg capsule 10 mg PO BEDTIME Qty: 30 0RF metoclopramide HCl [Reglan] 10 mg tablet 10 mg PO Q6H PRN (Reason: nausea and vomiting) Qty: 14 0RF lorazepam [Ativan] 0.5 mg tablet 0.5 mg PO BID PRN (Reason: nausea and vomiting) Qty: 10 0RF hydrocodone-acetaminophen 5-325 mg tablet 1 tab PO Q4-6H PRN (Reason: pain) Qty: 10 0RF ketorolac 10 mg tablet 10 mg PO Q6H PRN (Reason: pain) Qty: 14 0RF lidocaine [Lidoderm] 5 % adhesive patch,medicated 1 patch TOP DAILY Qty: 15 0RF Rx Instructions: leave on most painful area for 12 hrs diazepam [Valium] 5 mg tablet 5 mg PO BID-QID PRN (Reason: muscle spasm) Qty: 10 0RF isosorbide mononitrate 30 mg tablet extended release 24 hr 30 mg PO DAILY Qty: 30 0RF hydrocodone-acetaminophen 5-325 mg tablet 1 tab PO Q4-6H PRN (Reason: pain) Qty: 10 0RF methylprednisolone [Medrol (Jabier)] 4 mg tablets,dose pack See Rx Instructions .ROUTE .COMPLEX Qty: 21 0RF Rx Instructions: orally per package directions diazepam [Valium] 5 mg tablet 5 mg PO BID-QID PRN (Reason: muscle spasm) Qty: 10 0RF hydrocodone-acetaminophen 5-325 mg tablet 1 tab PO QID PRN (Reason: pain) Qty: 10 0RF morphine 15 mg tablet 15 mg PO Q6H PRN (Reason: pain) Qty: 10 0RF naloxone [Narcan] 4 mg/actuation spray,non-aerosol 4 mg intranasal Q2M Qty: 2 0RF Rx Instructions: spray 1 dose into ONE nostril; alternate nostrils w each dose until help arrives metoclopramide HCl [Reglan] 10 mg tablet 10 mg PO Q6H PRN (Reason: nausea and vomiting) Qty: 14 0RF morphine 15 mg tablet 15 mg PO Q6H PRN (Reason: pain) Qty: 15 0RF qrozplthqi-ibpxscorxyywp-cllb [Fioricet] 50-300-40 mg capsule 1 cap PO Q4-6H PRN (Reason: pain) Qty: 14 0RF isosorbide mononitrate 60 mg tablet extended release 24 hr 60 mg PO QAM Qty: 30 0RF potassium chloride 10 mEq capsule, extended release 20 meq PO DAILY cholecalciferol (vitamin D3) 50 mcg (2,000 unit) capsule 50 mcg PO DAILY Eliquis 5 mg tablet 5 mg PO BID Referrals: Yuli Lang PA-C [Primary Care Provider] - Stand Alone Forms: Patient Portal/API
[2024-01-21] MEDS: SODIUM CHLORIDE 0.9% 1,000 ML 1000 ML IV (14:25)
--- NOTE | 2024-01-21 14:30 | PC.NURSE ---
PT reports not feeling well the past 2 days, stating she was seen in the ER yesterday for chest pain. Pt currently denies chest pain, but has had weakness since yesterday. She denies pain, headache, coughing/fevers. Pt states I think i have a UTI. Pt attempted to urinate for a sample but was unable to provide one because I'm dehydrated. New orders placed. Pt ambulatory to the bathroom, steady gait.
[2024-01-21 15:16] LABS: Influenza A - CEPHEID Flu A NEGATIVE (NEGATIVE); Influenza B - CEPHEID Flu B NEGATIVE (NEGATIVE); Respiratory Syncytial Virus Negative (Negative)
[2024-01-21 15:18] LABS: COVID-19 CEPHEID 4-PLEX PCR Negative (Negative)
[2024-01-21 15:18] LABS: Add Manual Diff / Slide Review NO; Basophils Absolute Auto 100 /uL (0-100); Basophils Percent Auto 0.8 % (0-2); Eosinophils Absolute Auto 300 /uL (0-450); Eosinophils Percent Auto 3.5 % (2-4); Hematocrit 45.1 % (36-46); Hemoglobin 14.5 g/dL (12.0-16.0); Lymphocytes Absolute Auto 2000 /uL (1100-4500); Lymphocytes Percent Auto 23.2 % (25-40); Mean Corpuscular HGB Conc 32.2 % (30-36); Mean Corpuscular Hemoglobin 30.1 PG (26-34); Mean Corpuscular Volume 93.4 fL (80-100); Monocytes Absolute Auto 700 /uL (0-900); Monocytes Percent Auto 8.1 % (3-14); Neutrophils Absolute Auto 5500 /uL (1500-7000); Neutrophils Percent Auto 64.4 % (50-75); Platelet Count 202 X10^3/uL (150-400); Red Blood Cell Count 4.82 X10^6/uL (4.0-5.2); Red Cell Distribution Width 14.9 % (11.6-14.8); White Blood Cell Count 8.5 X10^3/uL (4.5-11.0)
[2024-01-21 15:27] LABS: INR 1.3 (0.9-1.3); Prothrombin Time 14.9 SECONDS (9.4-12.5)
[2024-01-21 15:30] LABS: PTT Partial Thromboplastin Tim 38 SECONDS (25.1-36.5)
[2024-01-21 15:33] LABS: Alanine Aminotransferase 20 IU/L (<35); Albumin 3.7 g/dL (3.5-5.0); Albumin Globulin Ratio 1.8 (1.0-2.8); Alkaline Phosphatase 79 U/L (38-126); Aspartate Aminotransferase 27 IU/L (14-36); BUN Creatinine Ratio 18.9 (6-22); Bilirubin Total 0.9 mg/dL (0.2-1.3); Blood Urea Nitrogen 20 mg/dL (7-17); Calcium 8.7 mg/dL (8.4-10.2); Carbon Dioxide 20 mmol/L (22-32); Chloride 117 mmol/L (98-107); Creatine Kinase 56 U/L (30-135); Estimated Glomerular Filt Rate 55 mL/min (>60); Globulin 2.1 g/dL (1.7-4.1); Glucose 89 mg/dL (80-110); HEMOLYSIS 32 (0-50); Lipase 65 U/L (23-300); Magnesium 1.9 mg/dL (1.6-2.3); Potassium 4.3 mmol/L (3.4-5.1); Sodium 140 mmol/L (137-145); Total Protein 5.8 g/dL (6.3-8.2)
[2024-01-21] MEDS: ACETAMINOPHEN 325 MG TABLET 650 MG PO (15:33)
[2024-01-21 15:44] LABS: Troponin I < 0.012 ng/mL (0.01-0.034)
[2024-01-21] MEDS: KETOROLAC 30 MG/ML VIAL IV (16:26)
--- NOTE | 2024-01-21 17:05 | PC.NURSE ---
Pt reports headache is persistent, and usually dilaudid makes it go away. Pt ambulated to the bathroom, now back in bed.
[2024-01-21] MEDS: HYDROMORPHONE 0.5 MG INJ IV (17:23)
== END 2024-01-21 18:00 | disposition home or self-care (01) ==
PROVIDERS: Emergency Provider Emergency Medicine; PCP Physician Assistant
DX: R51.9 Headache, unspecified (principal); R07.9 Chest pain, unspecified; Z79.01 Long term (current) use of anticoagulants; Z20.822 Contact with and (suspected) exposure to COVID-19
CPT/HCPCS: 0241U; 36415; 71045; 80053; 81003; 82550; 83690; 83735; 84484; 85025; 85610; 85730; 93005; 96361; 96374; 96375; 99284; J1170; J1885

== ENCOUNTER → 2024-02-10 14:54 | Outpatient (CLI) | payer MEDICARE, OTHER, SELFPAY ==
[2021-06-25 17:33] VITALS: BMI 28.1
--- NOTE | 2024-02-10 14:57 | DI.US.S_ITS ---
PROCEDURE: US ABDOMEN LIMITED INDICATIONS: ELEVATED LFT's TECHNIQUE: Real-time focused scanning was performed of the abdomen, with image documentation. COMPARISON: [facility], US, US ABDOMEN LIMITED, 09/17/2023, 16:44. [facility], CT, CT ABDOMEN PELVIS W CON, 09/17/2023, 17:59. FINDINGS: The liver demonstrates mildly enlarged size. The liver demonstrates generalized mildly increased echogenicity. This decreases ultrasound sensitivity for detection of hepatic masses. The main portal vein demonstrates normal size and demonstrates normal appearing, hepatopetal flow. Cholecystectomy. There is no biliary dilatation, the common bile duct measures 5 mm. No significant pancreatic abnormality is seen on these images. The visualized right kidney is unremarkable, without hydronephrosis. The IVC is patent. No free fluid can be seen. IMPRESSION: Mildly enlarged, mildly fatty liver. Status post cholecystectomy, without biliary dilatation. Dictated by: Justin Ivy M.D. on 02/10/2024 at 16:28 Approved by: Justin Ivy M.D. on 02/10/2024 at 16:30
== END ==
PROVIDERS: PCP Physician Assistant; Referring Provider Physician Assistant; Visit Provider Physician Assistant
DX: K76.0 Fatty (change of) liver, not elsewhere classified (principal); R79.89 Other specified abnormal findings of blood chemistry; Z90.49 Acquired absence of other specified parts of digestive tract
CPT/HCPCS: 76705

== ENCOUNTER 2024-02-11 13:15 | Emergency (ER) | payer MEDICARE, OTHER, SELFPAY ==
[2021-06-25 17:33] VITALS: BMI 28.1
[2024-02-11] VITALS (16 sets, daily range): BP systolic 140–169; BP diastolic 65–92; PULSE 58–80; RESP 10–29; TEMP 37.1; O2SAT 95–100; BMI 27.3
--- NOTE | 2024-02-11 13:44 | ED.GENADULT ---
HPI - General Adult <Raghav Griffin DO - Last Filed: 03/11/24 12:52> General Chief complaint: Abdominal Pain Stated complaint: Back Pain Time Seen by Provider: 02/11/24 13:43 Source: patient Mode of arrival: Ambulatory History of Present Illness HPI narrative: 73-year-old female former smoker with history of persistent atrial fibrillation with recent ablation presents with her in the chief complaint of a relatively sudden onset right flank pain that is sharp and stabbing in nature. She states it has been present ever since early this morning and seems to be worse when she moves and improves with rest. She feels it under her ribs anteriorly and around to her back. She has been having some elevated liver function tests and had an outpatient ultrasound yesterday that demonstrated a fatty liver. She denies any fever or chills, no runny nose, sore throat or cough. No nausea or vomiting. It is certainly worse when she moves. She denies any change in bowel habits or urinary complaints Related Data Home Medications Medication Instructions Recorded Confirmed aspirin 81 mg chewable tablet 81 mg PO QAM 07/26/20 12/23/21 atenolol 25 mg tablet 25 mg PO DAILY 06/25/21 12/23/21 ezetimibe 10 mg tablet 10 mg PO DAILY 06/25/21 12/23/21 levothyroxine 150 mcg tablet 150 mcg PO DAILY 06/25/21 12/23/21 (Synthroid) multivitamin 1 tab PO DAILY ##0 06/25/21 12/23/21 omega-3 fatty acids-vitamin E 1 cap PO DAILY 06/25/21 12/23/21 1,000 mg capsule furosemide 20 mg tablet 10 mg PO QAM 07/09/21 12/23/21 apixaban 5 mg tablet (Eliquis) 5 mg PO BID 07/22/21 12/23/21 cholecalciferol (vitamin D3) 50 50 mcg PO DAILY 07/22/21 12/23/21 mcg (2,000 unit) capsule potassium chloride 10 mEq 20 meq PO DAILY 07/22/21 12/23/21 capsule,extended release Previous Rx's Medication Instructions Recorded ondansetron 4 mg disintegrating 4 mg PO Q8H PRN nausea and 06/24/21 tablet vomiting #10 tabs tramadol 50 mg tablet 50 mg PO Q8H PRN pain #14 tabs 02/28/22 lmzpldnopw-ikvsedizwvych-cuexbipv 1 cap PO Q6H PRN pain #10 caps 05/30/22 50 mg-300 mg-40 mg capsule (Fioricet) ondansetron 4 mg disintegrating 4 mg PO Q6-8H PRN nausea and 06/15/22 tablet vomiting #10 tabs rizatriptan 10 mg tablet (Maxalt) 10 mg PO Q2-4H PRN migraine 06/16/22 headache #10 tabs nortriptyline 10 mg capsule 10 mg PO BEDTIME #30 caps 06/17/22 prednisone 20 mg tablet 40 mg (2 x 20 mg) PO DAILY #10 tabs 06/17/22 rimegepant 75 mg disintegrating 75 mg PO Q OTHER DAY PRN migraine 06/17/22 tablet headache #10 tabs metoclopramide HCl 10 mg tablet 10 mg PO Q6H PRN nausea and 06/18/22 (Reglan) vomiting #14 tabs lorazepam 0.5 mg tablet (Ativan) 0.5 mg PO BID PRN nausea and 06/19/22 vomiting #10 tabs diazepam 5 mg tablet (Valium) 5 mg PO BID-QID PRN muscle spasm 08/08/22 #10 tabs hydrocodone 5 mg-acetaminophen 325 1 tab PO Q4-6H PRN pain #10 tabs 08/08/22 mg tablet ketorolac 10 mg tablet 10 mg PO Q6H PRN pain #14 tabs 08/08/22 lidocaine 5 % topical patch 1 patch topical DAILY #15 ea 08/08/22 (Lidoderm) furosemide 20 mg tablet (Lasix) 20 mg PO DAILY #3 tabs 01/23/23 isosorbide mononitrate 30 mg 30 mg PO DAILY #30 tabs 01/24/23 tablet,extended release 24 hr diazepam 5 mg tablet (Valium) 5 mg PO BID-QID PRN muscle spasm 03/12/23 #10 tabs hydrocodone 5 mg-acetaminophen 325 1 tab PO Q4-6H PRN pain #10 tabs 03/12/23 mg tablet methylprednisolone 4 mg tablets in See Rx Instructions PO .COMPLEX 03/12/23 a dose pack (Medrol (Jabier)) #21 ea hydrocodone 5 mg-acetaminophen 325 1 tab PO QID PRN pain #10 tabs 09/11/23 mg tablet ondansetron 4 mg disintegrating 4 mg PO Q8H PRN nausea and 09/17/23 tablet vomiting #10 tabs metoclopramide HCl 10 mg tablet 10 mg PO Q6H PRN nausea and 09/19/23 (Reglan) vomiting #14 tabs morphine 15 mg immediate release 15 mg PO Q6H PRN pain #10 tabs 09/19/23 tablet morphine 15 mg immediate release 15 mg PO Q6H PRN pain #15 tabs 09/19/23 tablet naloxone 4 mg/actuation nasal 4 mg intranasal Q2M #2 ea 09/19/23 spray (Narcan) dnlyeavkma-tlaidrctyzhqg-ozmojflk 1 cap PO Q4-6H PRN pain #14 caps 10/10/23 50 mg-300 mg-40 mg capsule (Fioricet) isosorbide mononitrate 60 mg 60 mg PO QAM #30 tabs 01/02/24 tablet,extended release 24 hr Allergies Allergy/AdvReac Type Severity Reaction Status Date / Time lisinopril Allergy Severe Anaphylaxis Verified 01/21/24 13:24 metformin AdvReac Vomiting Verified 01/21/24 13:24 Review of Systems <Raghav Griffin DO - Last Filed: 03/11/24 12:52> Review of Systems Narrative: GENERAL: Denies chills, fatigue, malaise, fever, sweats. HEENT: Denies sinus pain, ear pain, sore throat, difficulty swallowing, dizziness. RESPIRATORY: Denies dyspnea, cough, wheezing, hemoptysis, sputum. CARDIOVASCULAR: See HPI GASTROINTESTINAL: See HPI : Denies dysuria, frequency, incontinence, hematuria, urinary retention. MUSCULOSKELETAL: denies weakness, joint pain, or bony pain SKIN: Denies rash, skin lesions, or other NEUROLOGIC: Denies weakness, headache, numbness, change in speech, confusion, seizures, incoordination. PSYCHIATRIC: No concerning psychosocial issues. 12 point review of systems is negative except for those stated above Patient History <Raghav Griffin DO - Last Filed: 03/11/24 12:52> Medical History UTI (urinary tract infection) Facet arthropathy, lumbar Atrial fibrillation Lumbar radiculopathy Tinnitus Nose fracture (~09/27/21) HLD (hyperlipidemia) Heart murmur Chronic pancreatitis Depression Chronic back pain Breast cancer Migraine headache Hypothyroidism Hypertension Surgical History Hx of tonsillectomy History of colonoscopy Hx of oophorectomy History of hysterectomy Hx of breast surgery Hx of cholecystectomy Family History Father Brain tumor Congestive heart failure Mother Hypertension Stroke Grandfather Stroke Social History household members: spouse Smoking Status: Former smoker alcohol intake: current Smoking Status: Former smoker tobacco type: cigarettes alcohol intake frequency: a few times a month Alcohol type: wine Substance Use Type: does not use Exam <Raghav Griffin DO - Last Filed: 03/11/24 12:52> Narrative Exam Narrative: GENERAL: [73] year old patient appears stated age. Well-developed patient, in obvious pain HEAD: Atraumatic. Normocephalic. EYES: Pupils equal round and reactive. Extraocular motions intact. No scleral icterus. No injection or drainage. ENT: Nose without bleeding, purulent drainage. Throat without erythema, tonsillar hypertrophy or exudate. Airway patent. NECK: Trachea midline. Non tender CARDIOVASCULAR: Regular rate and rhythm without murmurs, gallops, or rubs. RESPIRATORY: Clear to auscultation. Breath sounds equal bilaterally. No wheezes, rales, or rhonchi. GASTROINTESTINAL: Abdomen soft, RUQ pain, nondistended. EXTREMITIES: No edema or joint tenderness. BACK: Nontender without deformity or crepitance. No flank tenderness. NEURO: AOx3. SKIN: No rash or erythema of visible areas Initial Vital Signs Initial Vital Signs: Vital Signs Temperature 98.7 F 02/11/24 13:27 Pulse Rate 75 02/11/24 13:27 Respiratory Rate 18 02/11/24 13:27 Blood Pressure 145/68 H 02/11/24 13:27 Pulse Oximetry 99 02/11/24 13:27 Oxygen Delivery Method Room Air 02/11/24 13:27 <Lita Urbina DO - Last Filed: 02/11/24 19:11> Initial Vital Signs Initial Vital Signs: Vital Signs Temperature 98.7 F 02/11/24 13:27 Pulse Rate 75 02/11/24 13:27 Respiratory Rate 18 02/11/24 13:27 Blood Pressure 145/68 H 02/11/24 13:27 Pulse Oximetry 99 02/11/24 13:27 Oxygen Delivery Method Room Air 02/11/24 13:27 Course <Raghav DO Elias - Last Filed: 03/11/24 12:52> Orders Ordered: Discontinued Medications Hydrocodone Bitart/Acetaminophen (Hydrocodone/Acet 5/325 Prepack) 1 bottle MISC DIRECTED ONE Stop: 02/11/24 18:03 Last Admin: 02/11/24 18:26 Dose: 1 bottle Documented By: KAVYA Hydromorphone HCl (Hydromorphone 0.5 Mg Inj) 0.5 mg IV NOW ONE Stop: 02/11/24 13:52 Last Admin: 02/11/24 15:20 Dose: 0.5 mg Documented By: DELMY Sodium Chloride (Normal Saline 0.9%) 500 mls @ 1,000 mls/hr IV BOLUS ONE Stop: 02/11/24 14:20 Last Infusion: 02/11/24 16:28 Dose: Infused Documented By: Admin: 02/11/24 15:19 Dose: 1,000 mls/hr Documented By: DELMY Ondansetron HCl (Ondansetron 4 Mg Odt) 4 mg PO NOW PRN PRN Reason: Nausea And Vomiting Ondansetron HCl (Ondansetron 4 Mg/2 Ml Inj) 4 mg IV NOW PRN PRN Reason: Nausea And Vomiting Ondansetron HCl (Ondansetron 4 Mg/2 Ml Inj) 4 mg IV NOW ONE Stop: 02/11/24 13:52 Last Admin: 02/11/24 15:20 Dose: 4 mg Documented By: DELMY Vital Signs Vital signs: Vital Signs - 8 hr 02/11/24 13:27 02/11/24 13:38 02/11/24 13:39 Temperature 98.7 F Pulse Rate 75 69 70 Respiratory Rate 18 22 20 Blood Pressure 145/68 H Pulse Oximetry 99 99 98 Oxygen Delivery Method Room Air 02/11/24 13:39 02/11/24 14:00 02/11/24 14:00 Temperature Pulse Rate 68 Respiratory Rate 23 Blood Pressure 143/68 H 155/70 H Pulse Oximetry 98 Oxygen Delivery Method 02/11/24 14:30 02/11/24 14:30 02/11/24 15:02 Temperature Pulse Rate 64 71 Respiratory Rate 10 L 22 Blood Pressure 140/67 Pulse Oximetry 97 95 Oxygen Delivery Method 02/11/24 15:03 02/11/24 15:03 02/11/24 15:30 Temperature Pulse Rate 69 68 Respiratory Rate 11 L 20 Blood Pressure 152/70 H Pulse Oximetry 99 98 Oxygen Delivery Method 02/11/24 15:31 02/11/24 15:31 02/11/24 16:00 Temperature Pulse Rate 68 69 Respiratory Rate 20 12 Blood Pressure 155/65 H Pulse Oximetry 98 99 Oxygen Delivery Method 02/11/24 16:00 02/11/24 16:30 02/11/24 16:31 Temperature Pulse Rate 80 Respiratory Rate 29 H Blood Pressure 159/71 H 157/87 H Pulse Oximetry 98 Oxygen Delivery Method 02/11/24 16:31 02/11/24 16:50 02/11/24 16:50 Temperature Pulse Rate 74 71 Respiratory Rate 24 14 Blood Pressure 169/78 H Pulse Oximetry 99 96 Oxygen Delivery Method 02/11/24 17:00 02/11/24 17:00 02/11/24 17:30 Temperature Pulse Rate 62 58 L Respiratory Rate 14 19 Blood Pressure 151/71 H Pulse Oximetry 100 100 Oxygen Delivery Method 02/11/24 17:30 02/11/24 18:00 02/11/24 18:00 Temperature Pulse Rate 63 Respiratory Rate 20 Blood Pressure 146/92 H 156/80 H Pulse Oximetry 98 Oxygen Delivery Method <Lita Urbina, - Last Filed: 02/11/24 19:11> Orders Ordered: Discontinued Medications Hydrocodone Bitart/Acetaminophen (Hydrocodone/Acet 5/325 Prepack) 1 bottle MISC DIRECTED ONE Stop: 02/11/24 18:03 Last Admin: 02/11/24 18:26 Dose: 1 bottle Documented By: KB Hydromorphone HCl (Hydromorphone 0.5 Mg Inj) 0.5 mg IV NOW ONE Stop: 02/11/24 13:52 Last Admin: 02/11/24 15:20 Dose: 0.5 mg Documented By: RB Sodium Chloride (Normal Saline 0.9%) 500 mls @ 1,000 mls/hr IV BOLUS ONE Stop: 02/11/24 14:20 Last Infusion: 02/11/24 16:28 Dose: Infused Documented By: Admin: 02/11/24 15:19 Dose: 1,000 mls/hr Documented By: DELMY Ondansetron HCl (Ondansetron 4 Mg Odt) 4 mg PO NOW PRN PRN Reason: Nausea And Vomiting Ondansetron HCl (Ondansetron 4 Mg/2 Ml Inj) 4 mg IV NOW PRN PRN Reason: Nausea And Vomiting Ondansetron HCl (Ondansetron 4 Mg/2 Ml Inj) 4 mg IV NOW ONE Stop: 02/11/24 13:52 Last Admin: 02/11/24 15:20 Dose: 4 mg Documented By: DLEMY Vital Signs Vital signs: Vital Signs - 8 hr 02/11/24 13:27 02/11/24 13:38 02/11/24 13:39 Temperature 98.7 F Pulse Rate 75 69 70 Respiratory Rate 18 22 20 Blood Pressure 145/68 H Pulse Oximetry 99 99 98 Oxygen Delivery Method Room Air 02/11/24 13:39 02/11/24 14:00 02/11/24 14:00 Temperature Pulse Rate 68 Respiratory Rate 23 Blood Pressure 143/68 H 155/70 H Pulse Oximetry 98 Oxygen Delivery Method 02/11/24 14:30 02/11/24 14:30 02/11/24 15:02 Temperature Pulse Rate 64 71 Respiratory Rate 10 L 22 Blood Pressure 140/67 Pulse Oximetry 97 95 Oxygen Delivery Method 02/11/24 15:03 02/11/24 15:03 02/11/24 15:30 Temperature Pulse Rate 69 68 Respiratory Rate 11 L 20 Blood Pressure 152/70 H Pulse Oximetry 99 98 Oxygen Delivery Method 02/11/24 15:31 02/11/24 15:31 02/11/24 16:00 Temperature Pulse Rate 68 69 Respiratory Rate 20 12 Blood Pressure 155/65 H Pulse Oximetry 98 99 Oxygen Delivery Method 02/11/24 16:00 02/11/24 16:30 02/11/24 16:31 Temperature Pulse Rate 80 Respiratory Rate 29 H Blood Pressure 159/71 H 157/87 H Pulse Oximetry 98 Oxygen Delivery Method 02/11/24 16:31 02/11/24 16:50 02/11/24 16:50 Temperature Pulse Rate 74 71 Respiratory Rate 24 14 Blood Pressure 169/78 H Pulse Oximetry 99 96 Oxygen Delivery Method 02/11/24 17:00 02/11/24 17:00 02/11/24 17:30 Temperature Pulse Rate 62 58 L Respiratory Rate 14 19 Blood Pressure 151/71 H Pulse Oximetry 100 100 Oxygen Delivery Method 02/11/24 17:30 02/11/24 18:00 02/11/24 18:00 Temperature Pulse Rate 63 Respiratory Rate 20 Blood Pressure 146/92 H 156/80 H Pulse Oximetry 98 Oxygen Delivery Method Medical Decision Making <Raghav Griffin, - Last Filed: 03/11/24 12:52> Lab Data 02/11/24 14:36 02/11/24 14:36 Labs: Lab Results 02/11/24 Range/Units 14:36 WBC 9.7 (4.5-11.0) X10^3/uL RBC 5.10 (4.0-5.2) X10^6/uL Hgb 15.5 (12.0-16.0) g/dL Hct 46.8 H (36-46) % MCV 91.6 (80-100) fL MCH 30.3 (26-34) PG MCHC 33.1 (30-36) % RDW 15.0 H (11.6-14.8) % Plt Count 218 (150-400) X10^3/uL Neut % (Auto) 70.9 (50-75) % Lymph % (Auto) 18.7 L (25-40) % [place] % (Auto) 8.4 (3-14) % Eos % (Auto) 1.4 L (2-4) % Baso % (Auto) 0.6 (0-2) % Neut # (Auto) 6900 (3210-9166) /uL Lymph # (Auto) 1800 (1098-5987) /uL [place] # (Auto) 800 (0-900) /uL Eos # (Auto) 100 (0-450) /uL Baso # (Auto) 100 (0-100) /uL Sodium 141 (137-145) mmol/L Potassium 3.9 (3.4-5.1) mmol/L Chloride 115 H (98-107) mmol/L Carbon Dioxide 17 L (22-32) mmol/L BUN 18 H (7-17) mg/dL Creatinine 1.04 (0.52-1.04) mg/dL Estimated GFR 56 L (>60) mL/min BUN/Creatinine Ratio 17.3 (6-22) Glucose 117 H (80-110) mg/dL Calcium 9.7 (8.4-10.2) mg/dL Total Bilirubin 0.8 (0.2-1.3) mg/dL AST 42 H (14-36) IU/L ALT 49 H (<35) IU/L Alkaline Phosphatase 111 (38-126) U/L Total Protein 7.0 (6.3-8.2) g/dL Albumin 4.5 (3.5-5.0) g/dL Globulin 2.5 (1.7-4.1) g/dL Albumin/Globulin Ratio 1.8 (1.0-2.8) Lipase 77 (23-300) U/L Urine Dip Bedside Urine Glucose 1000 mg/dl Bedside Urine Bilirubin - Negative Bedside Urine Ketone - Negative Urine Specific [place] 1.005 Bedside Urine Occult Blood - Negative Bedside Urine pH 7.0 Bedside Urine Protein - Negative Bedside Urine Urobilinogen - Negative Bedside Urine Nitrite - Negative Bedside Urine Leukocytes - Negative Esterase Point of care testing: Urine Dip Bedside Urine Glucose 1000 mg/dl Bedside Urine Bilirubin - Negative Bedside Urine Ketone - Negative Urine Specific [place] 1.005 Bedside Urine Occult Blood - Negative Bedside Urine pH 7.0 Bedside Urine Protein - Negative Bedside Urine Urobilinogen - Negative Bedside Urine Nitrite - Negative Bedside Urine Leukocytes - Negative Esterase <Lita Urbina, DO - Last Filed: 02/11/24 19:11> Lab Data Labs: Lab Results 02/11/24 Range/Units 14:36 WBC 9.7 (4.5-11.0) X10^3/uL RBC 5.10 (4.0-5.2) X10^6/uL Hgb 15.5 (12.0-16.0) g/dL Hct 46.8 H (36-46) % MCV 91.6 (80-100) fL MCH 30.3 (26-34) PG MCHC 33.1 (30-36) % RDW 15.0 H (11.6-14.8) % Plt Count 218 (150-400) X10^3/uL Neut % (Auto) 70.9 (50-75) % Lymph % (Auto) 18.7 L (25-40) % [place] % (Auto) 8.4 (3-14) % Eos % (Auto) 1.4 L (2-4) % Baso % (Auto) 0.6 (0-2) % Neut # (Auto) 6900 (3041-3064) /uL Lymph # (Auto) 1800 (5816-2892) /uL [place] # (Auto) 800 (0-900) /uL Eos # (Auto) 100 (0-450) /uL Baso # (Auto) 100 (0-100) /uL Sodium 141 (137-145) mmol/L Potassium 3.9 (3.4-5.1) mmol/L Chloride 115 H (98-107) mmol/L Carbon Dioxide 17 L (22-32) mmol/L BUN 18 H (7-17) mg/dL Creatinine 1.04 (0.52-1.04) mg/dL Estimated GFR 56 L (>60) mL/min BUN/Creatinine Ratio 17.3 (6-22) Glucose 117 H (80-110) mg/dL Calcium 9.7 (8.4-10.2) mg/dL Total Bilirubin 0.8 (0.2-1.3) mg/dL AST 42 H (14-36) IU/L ALT 49 H (<35) IU/L Alkaline Phosphatase 111 (38-126) U/L Total Protein 7.0 (6.3-8.2) g/dL Albumin 4.5 (3.5-5.0) g/dL Globulin 2.5 (1.7-4.1) g/dL Albumin/Globulin Ratio 1.8 (1.0-2.8) Lipase 77 (23-300) U/L Urine Dip Bedside Urine Glucose 1000 mg/dl Bedside Urine Bilirubin - Negative Bedside Urine Ketone - Negative Urine Specific [place] 1.005 Bedside Urine Occult Blood - Negative Bedside Urine pH 7.0 Bedside Urine Protein - Negative Bedside Urine Urobilinogen - Negative Bedside Urine Nitrite - Negative Bedside Urine Leukocytes - Negative Esterase Point of care testing: Urine Dip Bedside Urine Glucose 1000 mg/dl Bedside Urine Bilirubin - Negative Bedside Urine Ketone - Negative Urine Specific [place] 1.005 Bedside Urine Occult Blood - Negative Bedside Urine pH 7.0 Bedside Urine Protein - Negative Bedside Urine Urobilinogen - Negative Bedside Urine Nitrite - Negative Bedside Urine Leukocytes - Negative Esterase ECG Data Attestation: I personally reviewed and interpreted this ECG as follows: Interpretation: Sinus rhythm rate of 63 NM 182 QRS is 70 QTC 425. T-waves inversion in 3 and AVF, inverted in V1 through V 3. No depression or elevation appreciated. [facility] Narrative Medical decision making narrative: Dr. Urbina 02/11/2024: Patient signed out to myself pending CT angio. Patient was seen and evaluated by myself. patient's CBC, CMP and lipase show normal white count hemoglobin of 15 platelets of 218. Sodium is 141 potassium 3.9 chloride 115, CO2 is 17, BUN 18 with a creatinine of 1.04, glucose of 117 very light enzymes 42 and 49. For AST and ALT. Lipase is negative at 77. Urine does not show any obvious infection. CT angio was obtained as patient had recent cardiac ablation to evaluate for vascular source versus kidney stone or other source. This shows no acute CT findings, no evidence of injury no aortic aneurysm or dissection of the edge of osseous changes without fracture dislocation. Heart size normal no evidence of PE. Lung whitaker are clear no pneumothorax. No renal calculi, no hydro. Bowel is unremarkable patient has a multiple diverticula. No findings of acute appendicitis. Patient received Zofran fluids and narcotic pain medication. Patient is feeling somewhat improved after medications. Patient feels comfortable with discharge home. Did repeat exam patient she is some mild tenderness to palpation no obvious rash or skin changes, she does not have any anterior abdominal tenderness. Her exam is otherwise normal except for some bruising of the neck and wrist were she had her catheterization. Discharge Plan Departure Patient Disposition: Home Clinical Impression: Right flank pain Activity Restrictions/Additional Instructions: Follow up with your physician for recheck this week. I hope you continue to feel improved. You can take pain medication as prescribed, 1 tablet every 6 hours as needed. Prepack was provided. Please return for fevers new or worsening abdominal back or flank pain, persistent vomiting, black or bloody stools, lightheadedness or passing out, new bruising or skin changes or other new or concerning changes Prescriptions: No Action aspirin 81 mg Tablet,Chewable 81 mg PO QAM ondansetron 4 mg tablet,disintegrating 4 mg PO Q8H PRN (Reason: nausea and vomiting) Qty: 10 0RF furosemide 20 mg Tablet 10 mg PO QAM [id number] [Fioricet] 50-300-40 mg capsule 1 cap PO Q6H PRN (Reason: pain) Qty: 10 0RF ondansetron 4 mg tablet,disintegrating 4 mg PO Q6-8H PRN (Reason: nausea and vomiting) Qty: 10 0RF rizatriptan [Maxalt] 10 mg tablet 10 mg PO Q2-4H PRN (Reason: migraine headache) Qty: 10 0RF Rx Instructions: do not exceed 3 doses per 24 hrs furosemide [Lasix] 20 mg tablet 20 mg PO DAILY Qty: 3 0RF ondansetron 4 mg tablet,disintegrating 4 mg PO Q8H PRN (Reason: nausea and vomiting) Qty: 10 0RF multivitamin Tablet 1 tab PO DAILY Qty: 0 atenolol 25 mg Tablet 25 mg PO DAILY levothyroxine [Synthroid] 150 mcg Tablet 150 mcg PO DAILY ezetimibe 10 mg Tablet 10 mg PO DAILY omega-3 fatty acids-vitamin E 1,000 mg Capsule 1 cap PO DAILY tramadol 50 mg tablet 50 mg PO Q8H PRN (Reason: pain) Qty: 14 0RF prednisone 20 mg tablet 40 mg PO DAILY Qty: 10 0RF rimegepant 75 mg tablet,disintegrating 75 mg PO Q OTHER DAY PRN (Reason: migraine headache) Qty: 10 0RF nortriptyline 10 mg capsule 10 mg PO BEDTIME Qty: 30 0RF metoclopramide HCl [Reglan] 10 mg tablet 10 mg PO Q6H PRN (Reason: nausea and vomiting) Qty: 14 0RF lorazepam [Ativan] 0.5 mg tablet 0.5 mg PO BID PRN (Reason: nausea and vomiting) Qty: 10 0RF hydrocodone-acetaminophen 5-325 mg tablet 1 tab PO Q4-6H PRN (Reason: pain) Qty: 10 0RF ketorolac 10 mg tablet 10 mg PO Q6H PRN (Reason: pain) Qty: 14 0RF lidocaine [Lidoderm] 5 % adhesive patch,medicated 1 patch TOP DAILY Qty: 15 0RF Rx Instructions: leave on most painful area for 12 hrs diazepam [Valium] 5 mg tablet 5 mg PO BID-QID PRN (Reason: muscle spasm) Qty: 10 0RF isosorbide mononitrate 30 mg tablet extended release 24 hr 30 mg PO DAILY Qty: 30 0RF hydrocodone-acetaminophen 5-325 mg tablet 1 tab PO Q4-6H PRN (Reason: pain) Qty: 10 0RF methylprednisolone [Medrol (Jabier)] 4 mg tablets,dose pack See Rx Instructions .ROUTE .COMPLEX Qty: 21 0RF Rx Instructions: orally per package directions diazepam [Valium] 5 mg tablet 5 mg PO BID-QID PRN (Reason: muscle spasm) Qty: 10 0RF hydrocodone-acetaminophen 5-325 mg tablet 1 tab PO QID PRN (Reason: pain) Qty: 10 0RF morphine 15 mg tablet 15 mg PO Q6H PRN (Reason: pain) Qty: 10 0RF naloxone [Narcan] 4 mg/actuation spray,non-aerosol 4 mg intranasal Q2M Qty: 2 0RF Rx Instructions: spray 1 dose into ONE nostril; alternate nostrils w each dose until help arrives metoclopramide HCl [Reglan] 10 mg tablet 10 mg PO Q6H PRN (Reason: nausea and vomiting) Qty: 14 0RF morphine 15 mg tablet 15 mg PO Q6H PRN (Reason: pain) Qty: 15 0RF [id number] [Fioricet] 50-300-40 mg capsule 1 cap PO Q4-6H PRN (Reason: pain) Qty: 14 0RF isosorbide mononitrate 60 mg tablet extended release 24 hr 60 mg PO QAM Qty: 30 0RF potassium chloride 10 mEq capsule, extended release 20 meq PO DAILY cholecalciferol (vitamin D3) 50 mcg (2,000 unit) capsule 50 mcg PO DAILY Eliquis 5 mg tablet 5 mg PO BID Referrals: Yuli Lang PA-C [Primary Care Provider] - Stand Alone Forms: Patient Portal/API
--- NOTE | 2024-02-11 13:51 | DI.CT.S_ITS ---
PROCEDURE: CT ANGIO CHEST ABDOMEN PELVIS INDICATIONS: R chest/flank pain TECHNIQUE: Precontrast 5 mm thick sections acquired from the lung apices to the iliac crests. After the administration of intravenous contrast, 2.5 mm thick sections again acquired from the lung apices to the iliac crests. Maximum intensity projection (MIP) oblique sagittal and coronal reformats were then acquired. For radiation dose reduction, the following was used: automated exposure control. COMPARISON: None. FINDINGS: Chest: Cardiovascular: Heart size is normal. No evidence of pulmonary embolism, aortic aneurysm or dissection. Lungs and pleural spaces: The lung whitaker are clear without nodule, infiltrate or interstitial prominence. Pleural spaces show no effusion or pneumothorax. Lymph nodes: No mediastinal, hilar or axillary adenopathy. Mediastinum: Unremarkable. No hiatal hernia. Thyroid within normal limits. Chest Wall and Bones: Unremarkable. No acute fracture. Abdomen and Pelvis: Liver: Normal in size and attenuation. No contour deformity present. Biliary system: Cholecystectomy. No intra or extrahepatic bile duct dilation. Pancreas: Unremarkable without mass or inflammation evident. Spleen: Normal in size and density. Adrenals: Normal morphology and density. Reproductive system: Unremarkable as visualized. Urinary system: Normal renal size and attenuation. No renal calculi, hydronephrosis, or solid mass present. Urinary bladder unremarkable. Gastrointestinal system: The bowel is unremarkable with no evidence of bowel obstruction or inflammation. The stomach appears unremarkable. Multiple diverticula arise from the sigmoid colon without evidence of diverticulitis. Appendix: No findings to suggest acute appendicitis. Lymph nodes: No mesenteric or retroperitoneal adenopathy. Peritoneal spaces: No free air. No free fluid. Vasculature: The IVC, aorta and iliac vasculature are unremarkable. Abdominal wall: Abdominal wall intact without evidence of ventral or inguinal hernias. Musculoskeletal: Normal bone mineralization. Degenerative disc disease and arthropathy noted in lower lumbar spine. Severe central stenosis L4-5 No acute fractures. IMPRESSION: 1. No acute CT findings in the chest abdomen and pelvis. No evidence of injury. No aortic aneurysm or dissection. 2. Degenerative osseous findings without fracture or dislocation. 3. Chronic findings as above Approved by: Yan Hay M.D. on 02/11/2024 at 15:49
[2024-02-11 14:44] LABS: Add Manual Diff / Slide Review NO; Basophils Absolute Auto 100 /uL (0-100); Basophils Percent Auto 0.6 % (0-2); Eosinophils Absolute Auto 100 /uL (0-450); Eosinophils Percent Auto 1.4 % (2-4); Hematocrit 46.8 % (36-46); Hemoglobin 15.5 g/dL (12.0-16.0); Lymphocytes Absolute Auto 1800 /uL (1100-4500); Lymphocytes Percent Auto 18.7 % (25-40); Mean Corpuscular HGB Conc 33.1 % (30-36); Mean Corpuscular Hemoglobin 30.3 PG (26-34); Mean Corpuscular Volume 91.6 fL (80-100); Monocytes Absolute Auto 800 /uL (0-900); Monocytes Percent Auto 8.4 % (3-14); Neutrophils Absolute Auto 6900 /uL (1500-7000); Neutrophils Percent Auto 70.9 % (50-75); Platelet Count 218 X10^3/uL (150-400); White Blood Cell Count 9.7 X10^3/uL (4.5-11.0)
[2024-02-11 14:56] LABS: Alanine Aminotransferase 49 IU/L (<35); Albumin 4.5 g/dL (3.5-5.0); Albumin Globulin Ratio 1.8 (1.0-2.8); Alkaline Phosphatase 111 U/L (38-126); Aspartate Aminotransferase 42 IU/L (14-36); BUN Creatinine Ratio 17.3 (6-22); Bilirubin Total 0.8 mg/dL (0.2-1.3); Blood Urea Nitrogen 18 mg/dL (7-17); Calcium 9.7 mg/dL (8.4-10.2); Carbon Dioxide 17 mmol/L (22-32); Chloride 115 mmol/L (98-107); Estimated Glomerular Filt Rate 56 mL/min (>60); Globulin 2.5 g/dL (1.7-4.1); Glucose 117 mg/dL (80-110); HEMOLYSIS 45 (0-50); Lipase 77 U/L (23-300); Potassium 3.9 mmol/L (3.4-5.1); Sodium 141 mmol/L (137-145)
[2024-02-11] MEDS: SODIUM CHLORIDE 0.9% 500 ML 1000 ML IV (15:19)
[2024-02-11] MEDS: ONDANSETRON 4 MG/2 ML INJ IV (15:20)
[2024-02-11] MEDS: HYDROMORPHONE 0.5 MG INJ IV (15:20)
[2024-02-11] MEDS: HYDROCODONE/ACET 5/325 PREPACK 1 BOTTLE MISC (18:26)
== END 2024-02-11 18:27 | disposition home or self-care (01) ==
PROVIDERS: Emergency Provider Emergency Medicine; PCP Physician Assistant
DX: R10.9 Unspecified abdominal pain (principal); Z79.01 Long term (current) use of anticoagulants; Z79.899 Other long term (current) drug therapy
CPT/HCPCS: 36415; 71275; 74174; 80053; 81003; 83690; 85025; 93005; 93010; 96361; 96374; 96375; 99284; J1170; J2405

== ENCOUNTER → 2024-03-08 09:44 | Outpatient (CLI) | payer MEDICARE, OTHER, SELFPAY ==
[2021-06-25 17:33] VITALS: BMI 28.1
--- NOTE | 2024-03-08 09:46 | DI.MG.S_ITS ---
BILATERAL DIGITAL SCREENING MAMMOGRAM 3D/2D WITH CAD: 03/08/2024 CLINICAL: Routine screening. Personal history of left breast cancer. Comparison is made to exams dated: 03/05/2023 mammogram - [facility], 09/24/2021 mammogram, and 08/05/2020 mammogram - [facility]. There are scattered areas of fibroglandular density in both breasts (category b / 25%-50% glandular tissue). Current study was also evaluated with a Computer Aided Detection (CAD) system. There are benign calcifications in the left breast. There also are benign vascular calcifications in the right breast. No significant masses, calcifications, or other findings are seen in either breast. There has been no significant interval change. IMPRESSION: BENIGN There is no mammographic evidence of malignancy. A 1 year screening mammogram is recommended. This exam was interpreted at Station ID: [id number]. NOTE: For mammograms, a report in lay terms will be sent to the patient. Approximately 15% of breast malignancies will not be visualized mammographically. In the management of a palpable breast mass, a negative mammogram must not discourage biopsy of a clinically suspicious lesion. Electronically Signed By: Unique long/randa:03/12/2024 08:33:26 letter sent: Normal Exam ACR BI-RADS Category 2: Benign Finding(s) 3342F
== END ==
PROVIDERS: PCP Physician Assistant; Referring Provider Physician Assistant; Visit Provider Physician Assistant
DX: Z12.31 Encounter for screening mammogram for malignant neoplasm of breast (principal); Z85.3 Personal history of malignant neoplasm of breast; R92.323 Mammographic fibroglandular density, bilateral breasts
CPT/HCPCS: 77063; 77067

== ENCOUNTER 2024-03-17 10:29 | Emergency (ER) | payer MEDICARE, OTHER, SELFPAY ==
[2021-06-25 17:33] VITALS: BMI 28.1
[2024-03-17 10:37] VITALS: BP 157/71; PULSE 70; RESP 12; TEMP 36.6; O2SAT 98; BMI 27.3
[2024-03-17] MEDS: SODIUM CHLORIDE 0.9% 1,000 ML 1000 ML IV (10:51)
[2024-03-17] MEDS: ACETAMINOPHEN IV 1,000 MG/100 ML VIAL 400 MG IV (10:51)
[2024-03-17] MEDS: LIDOCAINE 5% PATCH 1 EACH TOP (10:51)
--- NOTE | 2024-03-17 10:52 | ED_ITS ---
HPI - Back Pain/Injury General Chief Complaint: Back Pain/Injury Stated Complaint: back pain Time Seen by Provider: 03/17/24 10:31 Source: patient History of Present Illness HPI Narrative: 73-year-old female presents for lumbar back pain. Patient was seen 2 days prior at another ER for lumbar back pain where she was given Toradol and Dilaudid and discharged with muscle relaxers and 800 mg ibuprofen. Patient states that she has chronic lumbar back pain and it occasionally flares up. She has been on a road trip which is the reason her back pain has gotten worse recently. She states she was here today for pain control. She reports occasional pain that sh oots down her right lower leg, denies bowel or bladder incontinence, denies saddle anesthesia. Related Data Home Medications Medication Instructions Recorded Confirmed aspirin 81 mg chewable tablet 81 mg PO QAM 07/26/20 12/23/21 atenolol 25 mg tablet 25 mg PO DAILY 06/25/21 12/23/21 ezetimibe 10 mg tablet 10 mg PO DAILY 06/25/21 12/23/21 levothyroxine 150 mcg tablet 150 mcg PO DAILY 06/25/21 12/23/21 (Synthroid) multivitamin 1 tab PO DAILY ##0 06/25/21 12/23/21 omega-3 fatty acids-vitamin E 1 cap PO DAILY 06/25/21 12/23/21 1,000 mg capsule furosemide 20 mg tablet 10 mg PO QAM 07/09/21 12/23/21 apixaban 5 mg tablet (Eliquis) 5 mg PO BID 07/22/21 12/23/21 cholecalciferol (vitamin D3) 50 50 mcg PO DAILY 07/22/21 12/23/21 mcg (2,000 unit) capsule potassium chloride 10 mEq 20 meq PO DAILY 07/22/21 12/23/21 capsule,extended release Previous Rx's Medication Instructions Recorded ondansetron 4 mg disintegrating 4 mg PO Q8H PRN nausea and 06/24/21 tablet vomiting #10 tabs tramadol 50 mg tablet 50 mg PO Q8H PRN pain #14 tabs 02/28/22 vmvenxcdjx-stzocbiffarix-klyqhszp 1 cap PO Q6H PRN pain #10 caps 05/30/22 50 mg-300 mg-40 mg capsule (Fioricet) ondansetron 4 mg disintegrating 4 mg PO Q6-8H PRN nausea and 06/15/22 tablet vomiting #10 tabs rizatriptan 10 mg tablet (Maxalt) 10 mg PO Q2-4H PRN migraine 06/16/22 headache #10 tabs nortriptyline 10 mg capsule 10 mg PO BEDTIME #30 caps 06/17/22 prednisone 20 mg tablet 40 mg (2 x 20 mg) PO DAILY #10 tabs 06/17/22 rimegepant 75 mg disintegrating 75 mg PO Q OTHER DAY PRN migraine 06/17/22 tablet headache #10 tabs metoclopramide HCl 10 mg tablet 10 mg PO Q6H PRN nausea and 06/18/22 (Reglan) vomiting #14 tabs lorazepam 0.5 mg tablet (Ativan) 0.5 mg PO BID PRN nausea and 06/19/22 vomiting #10 tabs diazepam 5 mg tablet (Valium) 5 mg PO BID-QID PRN muscle spasm 08/08/22 #10 tabs hydrocodone 5 mg-acetaminophen 325 1 tab PO Q4-6H PRN pain #10 tabs 08/08/22 mg tablet ketorolac 10 mg tablet 10 mg PO Q6H PRN pain #14 tabs 08/08/22 lidocaine 5 % topical patch 1 patch topical DAILY #15 ea 08/08/22 (Lidoderm) furosemide 20 mg tablet (Lasix) 20 mg PO DAILY #3 tabs 01/23/23 isosorbide mononitrate 30 mg 30 mg PO DAILY #30 tabs 01/24/23 tablet,extended release 24 hr diazepam 5 mg tablet (Valium) 5 mg PO BID-QID PRN muscle spasm 03/12/23 #10 tabs hydrocodone 5 mg-acetaminophen 325 1 tab PO Q4-6H PRN pain #10 tabs 03/12/23 mg tablet methylprednisolone 4 mg tablets in See Rx Instructions PO .COMPLEX 03/12/23 a dose pack (Medrol (Jabier)) #21 ea hydrocodone 5 mg-acetaminophen 325 1 tab PO QID PRN pain #10 tabs 09/11/23 mg tablet ondansetron 4 mg disintegrating 4 mg PO Q8H PRN nausea and 09/17/23 tablet vomiting #10 tabs metoclopramide HCl 10 mg tablet 10 mg PO Q6H PRN nausea and 09/19/23 (Reglan) vomiting #14 tabs morphine 15 mg immediate release 15 mg PO Q6H PRN pain #10 tabs 09/19/23 tablet morphine 15 mg immediate release 15 mg PO Q6H PRN pain #15 tabs 09/19/23 tablet naloxone 4 mg/actuation nasal 4 mg intranasal Q2M #2 ea 09/19/23 spray (Narcan) rfqdjurfwo-qwizhdiezvsja-xtwfaidt 1 cap PO Q4-6H PRN pain #14 caps 10/10/23 50 mg-300 mg-40 mg capsule (Fioricet) isosorbide mononitrate 60 mg 60 mg PO QAM #30 tabs 01/02/24 tablet,extended release 24 hr methylprednisolone 4 mg tablets in See Rx Instructions PO .COMPLEX 03/17/24 a dose pack (Medrol (Jabier)) #21 ea Allergies Allergy/AdvReac Type Severity Reaction Status Date / Time lisinopril Allergy Severe Anaphylaxis Verified 01/21/24 13:24 metformin AdvReac Vomiting Verified 01/21/24 13:24 Review of Systems Review of Systems Narrative: See HPI Patient History Medical History UTI (urinary tract infection) Facet arthropathy, lumbar Atrial fibrillation Lumbar radiculopathy Tinnitus Nose fracture (~06/29/21) HLD (hyperlipidemia) Heart murmur Chronic pancreatitis Depression Chronic back pain Breast cancer Migraine headache Hypothyroidism Hypertension Surgical History Hx of tonsillectomy History of colonoscopy Hx of oophorectomy History of hysterectomy Hx of breast surgery Hx of cholecystectomy Family History Father Brain tumor Congestive heart failure Mother Hypertension Stroke Grandfather Stroke Social History household members: spouse Smoking Status: Former smoker alcohol intake: current Smoking Status: Former smoker tobacco type: cigarettes alcohol intake frequency: a few times a month Alcohol type: wine Substance Use Type: does not use Exam Initial Vital Signs Initial Vital Signs: Vital Signs Temperature 98 F 03/17/24 10:37 Pulse Rate 70 03/17/24 10:37 Respiratory Rate 12 03/17/24 10:37 Blood Pressure 157/71 H 03/17/24 10:37 Pulse Oximetry 98 03/17/24 10:37 Oxygen Delivery Method Room Air 03/17/24 10:37 Const: Awake, alert, mild discomfort, no acute distress MSK: Atraumatic, no midline tenderness, range of motion somewhat limited due to pain Skin: Warm, Dry, intact, no rashes Neuro: AO x3, CN II-XII grossly intact, moves all extremities Course Orders Ordered: Discontinued Medications Dexamethasone (Dexamethasone 10 Mg/Ml Vial) 10 mg IV NOW ONE Stop: 03/17/24 10:43 Last Admin: 03/17/24 11:03 Dose: 10 mg Documented By: HEENA Diazepam (Diazepam 10 Mg/2 Ml Syringe) 2 mg IV NOW ONE Stop: 03/17/24 10:43 Last Admin: 03/17/24 11:06 Dose: 2 mg Documented By: HEENA Acetaminophen (Ofirmev) 1,000 mg in 100 mls @ 400 mls/hr IV NOW ONE Stop: 03/17/24 10:56 Last Infusion: 03/17/24 11:31 Dose: Infused Documented By: Admin: 03/17/24 10:51 Dose: 400 mls/hr Documented By: HEENA Sodium Chloride (Normal Saline 0.9%) 1,000 mls @ 1,000 mls/hr IV BOLUS ONE Stop: 03/17/24 11:41 Last Admin: 03/17/24 10:51 Dose: 1,000 mls/hr Documented By: HEENA Ketorolac Tromethamine (Ketorolac 30 Mg/Ml Vial) 15 mg IV NOW ONE Stop: 03/17/24 10:43 Last Admin: 03/17/24 11:01 Dose: 15 mg Documented By: HEENA Lidocaine (Lidocaine 5% Patch) 1 each TOP NOW ONE Stop: 03/17/24 10:43 Last Admin: 03/17/24 10:51 Dose: 1 each Documented By: HEENA Vital Signs Vital signs: Vital Signs - 8 hr 03/17/24 10:37 Temperature 98 F Pulse Rate 70 Respiratory Rate 12 Blood Pressure 157/71 H Pulse Oximetry 98 Oxygen Delivery Method Room Air MDM - Back Pain/Injury MDM Narrative Medical decision making narrative: Patient with known lumbar back pain presenting for worsening lumbar back pain after a road trip. No signs or symptoms of cauda equina. Patient states she was here today for pain control. Patient was given numerous nonnarcotic medications in the emergency department. Counseled to continue to take the prescribed medications for her symptoms at home, added Medrol Dosepak and recommended addition of Tylenol to medication regimen. Patient states she was followed by her primary care doctor for her lumbar back pain, she was encouraged to make a follow up appointment with her PCP Discharge Plan Departure Patient Disposition: Home Clinical Impression: Lumbar radiculopathy Instructions: DI for Low Back Pain Activity Restrictions/Additional Instructions: You may take the ibuprofen and muscle relaxers as prescribed. You may also take up to 1000 mg of Tylenol every 6 hours for pain. Take no more than 4000 mg of Tylenol daily. A steroid taper has also been sent to your pharmacy. Use gentle stretching exercises as well as heat and ice for your symptoms. Follow up with your primary care doctor Prescriptions: New methylprednisolone [Medrol (Jabier)] 4 mg tablets,dose pack See Rx Instructions .ROUTE .COMPLEX Qty: 21 0RF Rx Instructions: for 6 days No Action aspirin 81 mg Tablet,Chewable 81 mg PO QAM ondansetron 4 mg tablet,disintegrating 4 mg PO Q8H PRN (Reason: nausea and vomiting) Qty: 10 0RF furosemide 20 mg Tablet 10 mg PO QAM fuwkdisbot-dqyrbpjelobup-papv [Fioricet] 50-300-40 mg capsule 1 cap PO Q6H PRN (Reason: pain) Qty: 10 0RF ondansetron 4 mg tablet,disintegrating 4 mg PO Q6-8H PRN (Reason: nausea and vomiting) Qty: 10 0RF rizatriptan [Maxalt] 10 mg tablet 10 mg PO Q2-4H PRN (Reason: migraine headache) Qty: 10 0RF Rx Instructions: do not exceed 3 doses per 24 hrs furosemide [Lasix] 20 mg tablet 20 mg PO DAILY Qty: 3 0RF ondansetron 4 mg tablet,disintegrating 4 mg PO Q8H PRN (Reason: nausea and vomiting) Qty: 10 0RF multivitamin Tablet 1 tab PO DAILY Qty: 0 atenolol 25 mg Tablet 25 mg PO DAILY levothyroxine [Synthroid] 150 mcg Tablet 150 mcg PO DAILY ezetimibe 10 mg Tablet 10 mg PO DAILY omega-3 fatty acids-vitamin E 1,000 mg Capsule 1 cap PO DAILY tramadol 50 mg tablet 50 mg PO Q8H PRN (Reason: pain) Qty: 14 0RF prednisone 20 mg tablet 40 mg PO DAILY Qty: 10 0RF rimegepant 75 mg tablet,disintegrating 75 mg PO Q OTHER DAY PRN (Reason: migraine headache) Qty: 10 0RF nortriptyline 10 mg capsule 10 mg PO BEDTIME Qty: 30 0RF metoclopramide HCl [Reglan] 10 mg tablet 10 mg PO Q6H PRN (Reason: nausea and vomiting) Qty: 14 0RF lorazepam [Ativan] 0.5 mg tablet 0.5 mg PO BID PRN (Reason: nausea and vomiting) Qty: 10 0RF hydrocodone-acetaminophen 5-325 mg tablet 1 tab PO Q4-6H PRN (Reason: pain) Qty: 10 0RF ketorolac 10 mg tablet 10 mg PO Q6H PRN (Reason: pain) Qty: 14 0RF lidocaine [Lidoderm] 5 % adhesive patch,medicated 1 patch TOP DAILY Qty: 15 0RF Rx Instructions: leave on most painful area for 12 hrs diazepam [Valium] 5 mg tablet 5 mg PO BID-QID PRN (Reason: muscle spasm) Qty: 10 0RF isosorbide mononitrate 30 mg tablet extended release 24 hr 30 mg PO DAILY Qty: 30 0RF hydrocodone-acetaminophen 5-325 mg tablet 1 tab PO Q4-6H PRN (Reason: pain) Qty: 10 0RF methylprednisolone [Medrol (Jabier)] 4 mg tablets,dose pack See Rx Instructions .ROUTE .COMPLEX Qty: 21 0RF Rx Instructions: orally per package directions diazepam [Valium] 5 mg tablet 5 mg PO BID-QID PRN (Reason: muscle spasm) Qty: 10 0RF hydrocodone-acetaminophen 5-325 mg tablet 1 tab PO QID PRN (Reason: pain) Qty: 10 0RF morphine 15 mg tablet 15 mg PO Q6H PRN (Reason: pain) Qty: 10 0RF naloxone [Narcan] 4 mg/actuation spray,non-aerosol 4 mg intranasal Q2M Qty: 2 0RF Rx Instructions: spray 1 dose into ONE nostril; alternate nostrils w each dose until help arrives metoclopramide HCl [Reglan] 10 mg tablet 10 mg PO Q6H PRN (Reason: nausea and vomiting) Qty: 14 0RF morphine 15 mg tablet 15 mg PO Q6H PRN (Reason: pain) Qty: 15 0RF tkojiayvtc-tmvskvdqyxtzd-szul [Fioricet] 50-300-40 mg capsule 1 cap PO Q4-6H PRN (Reason: pain) Qty: 14 0RF isosorbide mononitrate 60 mg tablet extended release 24 hr 60 mg PO QAM Qty: 30 0RF potassium chloride 10 mEq capsule, extended release 20 meq PO DAILY cholecalciferol (vitamin D3) 50 mcg (2,000 unit) capsule 50 mcg PO DAILY Eliquis 5 mg tablet 5 mg PO BID Referrals: Yuli Lang PA-C [Primary Care Provider] - Stand Alone Forms: Patient Portal/API
[2024-03-17] MEDS: KETOROLAC 30 MG/ML VIAL 15 MG IV (11:01)
[2024-03-17] MEDS: DEXAMETHASONE 10 MG/ML VIAL IV (11:03)
[2024-03-17] MEDS: diazePAM 10 MG/2 ML SYRINGE 2 MG IV (11:06)
--- NOTE | 2024-03-17 11:33 | PC.NURSE ---
Acute on chronic low back pain. Pt states this was exacerbated by long road trip.
[2024-03-17 12:27] VITALS: BP 160/77; PULSE 55; RESP 16; TEMP 36.7; O2SAT 96
== END 2024-03-17 12:28 | disposition home or self-care (01) ==
PROVIDERS: Emergency Provider Emergency Medicine; PCP Physician Assistant
DX: M54.16 Radiculopathy, lumbar region (principal); Z79.01 Long term (current) use of anticoagulants; Z79.899 Other long term (current) drug therapy
CPT/HCPCS: 96365; 96375; 99281; 99283; 99284; J0136; J1100; J1885; J3360

== ENCOUNTER 2024-03-17 19:51 | Emergency (ER) | payer MEDICARE, OTHER, SELFPAY ==
[2021-06-25 17:33] VITALS: BMI 28.1
[2024-03-17 20:09] VITALS: BP 133/64; PULSE 93; RESP 16; TEMP 37.1; O2SAT 97; BMI 27.3
== END 2024-03-17 21:59 | disposition left against medical advice (07) ==
PROVIDERS: Emergency Provider Emergency Medicine; PCP Physician Assistant
CPT/HCPCS: 99281

== ENCOUNTER 2024-03-18 08:13 | Emergency (ER) | payer MEDICARE, OTHER, SELFPAY ==
[2021-06-25 17:33] VITALS: BMI 28.1
[2024-03-18 08:24] VITALS: BP 163/76; PULSE 77; RESP 19; TEMP 36.8; O2SAT 99; BMI 27.3
--- NOTE | 2024-03-18 08:29 | ED.BACK ---
HPI - Back Pain/Injury General Chief Complaint: Back Pain/Injury Stated Complaint: back pain Time Seen by Provider: 03/18/24 08:14 Source: patient History of Present Illness HPI Narrative: 73-year-old female presents for lumbar back pain. Seen yesterday for same. Has known history of spinal stenosis, has seen pain management in the past for injections. Flare-up after long car ride. Patient given NSAIDs, steroids, muscle relaxers, instructed to take Tylenol at home. Patient tells me that she took all of her medications as prescribed, however she told nursing staff that she only took 200 mg of ibuprofen, no Tylenol, the muscle relaxer, and prednisone less than 1 hour prior to arrival. Is ambulatory in triage Related Data Home Medications Medication Instructions Recorded Confirmed aspirin 81 mg chewable tablet 81 mg PO QAM 07/26/20 12/23/21 atenolol 25 mg tablet 25 mg PO DAILY 06/25/21 12/23/21 ezetimibe 10 mg tablet 10 mg PO DAILY 06/25/21 12/23/21 levothyroxine 150 mcg tablet 150 mcg PO DAILY 06/25/21 12/23/21 (Synthroid) multivitamin 1 tab PO DAILY ##0 06/25/21 12/23/21 omega-3 fatty acids-vitamin E 1 cap PO DAILY 06/25/21 12/23/21 1,000 mg capsule furosemide 20 mg tablet 10 mg PO QAM 07/09/21 12/23/21 apixaban 5 mg tablet (Eliquis) 5 mg PO BID 07/22/21 12/23/21 cholecalciferol (vitamin D3) 50 50 mcg PO DAILY 07/22/21 12/23/21 mcg (2,000 unit) capsule potassium chloride 10 mEq 20 meq PO DAILY 07/22/21 12/23/21 capsule,extended release Previous Rx's Medication Instructions Recorded ondansetron 4 mg disintegrating 4 mg PO Q8H PRN nausea and 06/24/21 tablet vomiting #10 tabs tramadol 50 mg tablet 50 mg PO Q8H PRN pain #14 tabs 02/28/22 fsldrpybsz-hwzhlspxinhcm-fyrqsgek 1 cap PO Q6H PRN pain #10 caps 05/30/22 50 mg-300 mg-40 mg capsule (Fioricet) ondansetron 4 mg disintegrating 4 mg PO Q6-8H PRN nausea and 06/15/22 tablet vomiting #10 tabs rizatriptan 10 mg tablet (Maxalt) 10 mg PO Q2-4H PRN migraine 06/16/22 headache #10 tabs nortriptyline 10 mg capsule 10 mg PO BEDTIME #30 caps 06/17/22 prednisone 20 mg tablet 40 mg (2 x 20 mg) PO DAILY #10 tabs 06/17/22 rimegepant 75 mg disintegrating 75 mg PO Q OTHER DAY PRN migraine 06/17/22 tablet headache #10 tabs metoclopramide HCl 10 mg tablet 10 mg PO Q6H PRN nausea and 06/18/22 (Reglan) vomiting #14 tabs lorazepam 0.5 mg tablet (Ativan) 0.5 mg PO BID PRN nausea and 06/19/22 vomiting #10 tabs diazepam 5 mg tablet (Valium) 5 mg PO BID-QID PRN muscle spasm 08/08/22 #10 tabs hydrocodone 5 mg-acetaminophen 325 1 tab PO Q4-6H PRN pain #10 tabs 08/08/22 mg tablet ketorolac 10 mg tablet 10 mg PO Q6H PRN pain #14 tabs 08/08/22 lidocaine 5 % topical patch 1 patch topical DAILY #15 ea 08/08/22 (Lidoderm) furosemide 20 mg tablet (Lasix) 20 mg PO DAILY #3 tabs 01/23/23 isosorbide mononitrate 30 mg 30 mg PO DAILY #30 tabs 01/24/23 tablet,extended release 24 hr diazepam 5 mg tablet (Valium) 5 mg PO BID-QID PRN muscle spasm 03/12/23 #10 tabs hydrocodone 5 mg-acetaminophen 325 1 tab PO Q4-6H PRN pain #10 tabs 03/12/23 mg tablet methylprednisolone 4 mg tablets in See Rx Instructions PO .COMPLEX 03/12/23 a dose pack (Medrol (Jabier)) #21 ea hydrocodone 5 mg-acetaminophen 325 1 tab PO QID PRN pain #10 tabs 09/11/23 mg tablet ondansetron 4 mg disintegrating 4 mg PO Q8H PRN nausea and 09/17/23 tablet vomiting #10 tabs metoclopramide HCl 10 mg tablet 10 mg PO Q6H PRN nausea and 09/19/23 (Reglan) vomiting #14 tabs morphine 15 mg immediate release 15 mg PO Q6H PRN pain #10 tabs 09/19/23 tablet morphine 15 mg immediate release 15 mg PO Q6H PRN pain #15 tabs 09/19/23 tablet naloxone 4 mg/actuation nasal 4 mg intranasal Q2M #2 ea 09/19/23 spray (Narcan) pwptrnchda-mdpnrhjehsbnk-hjmupdvh 1 cap PO Q4-6H PRN pain #14 caps 10/10/23 50 mg-300 mg-40 mg capsule (Fioricet) isosorbide mononitrate 60 mg 60 mg PO QAM #30 tabs 01/02/24 tablet,extended release 24 hr methylprednisolone 4 mg tablets in See Rx Instructions PO .COMPLEX 03/17/24 a dose pack (Medrol (Jabier)) #21 ea hydrocodone 5 mg-acetaminophen 325 1 tab PO Q8H PRN pain #14 tabs 03/18/24 mg tablet Allergies Allergy/AdvReac Type Severity Reaction Status Date / Time lisinopril Allergy Severe Anaphylaxis Verified 01/21/24 13:24 metformin AdvReac Vomiting Verified 01/21/24 13:24 Patient History Medical History UTI (urinary tract infection) Facet arthropathy, lumbar Atrial fibrillation Lumbar radiculopathy Tinnitus Nose fracture (~06/29/21) HLD (hyperlipidemia) Heart murmur Chronic pancreatitis Depression Chronic back pain Breast cancer Migraine headache Hypothyroidism Hypertension Surgical History Hx of tonsillectomy History of colonoscopy Hx of oophorectomy History of hysterectomy Hx of breast surgery Hx of cholecystectomy Family History Father Brain tumor Congestive heart failure Mother Hypertension Stroke Grandfather Stroke Social History household members: spouse Smoking Status: Former smoker alcohol intake: current Smoking Status: Former smoker tobacco type: cigarettes alcohol intake frequency: a few times a month Alcohol type: wine Substance Use Type: does not use Exam Initial Vital Signs Initial Vital Signs: Vital Signs Temperature 98.2 F 03/18/24 08:24 Pulse Rate 77 03/18/24 08:24 Respiratory Rate 19 03/18/24 08:24 Blood Pressure 163/76 H 03/18/24 08:24 Pulse Oximetry 99 03/18/24 08:24 Oxygen Delivery Method Room Air 03/18/24 08:24 Const: Awake, alert, mildly uncomfortable MSK: Atraumatic, full range of motion, pulses equal Skin: Warm, Dry, intact, no rashes Neuro: AO x3, CN II-XII grossly intact, moves all extremities, gait normal Course Orders Ordered: Discontinued Medications Hydromorphone HCl (Hydromorphone 1 Mg Inj) 1 mg IM NOW ONE Stop: 03/18/24 09:03 Last Admin: 03/18/24 09:09 Dose: 1 mg Documented By: Vital Signs Vital signs: Vital Signs - 8 hr 03/18/24 08:24 Temperature 98.2 F Pulse Rate 77 Respiratory Rate 19 Blood Pressure 163/76 H Pulse Oximetry 99 Oxygen Delivery Method Room Air MDM - Back Pain/Injury Differential Diagnosis Differential diagnosis: Likely lumbar radiculopathy, sciatica and strain of lumbar region MDM Narrative Medical decision making narrative: Lumbar back pain. Known history of lumbar back pain. No signs or symptoms of cauda equina, patient was ambulatory in triage of her own power without leg drop. Patient was counseled that she would need to follow up with her primary doctor in pain management doctor for further treatment as she has maxed out on medical therapy. A very short course of narcotic pain medication sent to pharmacy, however it does appear that patient gets daily tramadol from her primary care doctor. Discharge Plan Departure Patient Disposition: Home Clinical Impression: Lumbar radiculopathy Instructions: DI for Low Back Pain Activity Restrictions/Additional Instructions: Continue to take all the medications as prescribed. Follow up with your primary care doctor and your pain doctor for additional interventions. The prescribed medication does have some Tylenol in it, make sure to take no more than 4000 mg of Tylenol daily. Prescriptions: New hydrocodone-acetaminophen 5-325 mg tablet 1 tab PO Q8H PRN (Reason: pain) Qty: 14 0RF No Action aspirin 81 mg Tablet,Chewable 81 mg PO QAM ondansetron 4 mg tablet,disintegrating 4 mg PO Q8H PRN (Reason: nausea and vomiting) Qty: 10 0RF furosemide 20 mg Tablet 10 mg PO QAM [id number]-wskdhtmyzqftd-urpy [Fioricet] 50-300-40 mg capsule 1 cap PO Q6H PRN (Reason: pain) Qty: 10 0RF ondansetron 4 mg tablet,disintegrating 4 mg PO Q6-8H PRN (Reason: nausea and vomiting) Qty: 10 0RF rizatriptan [Maxalt] 10 mg tablet 10 mg PO Q2-4H PRN (Reason: migraine headache) Qty: 10 0RF Rx Instructions: do not exceed 3 doses per 24 hrs furosemide [Lasix] 20 mg tablet 20 mg PO DAILY Qty: 3 0RF ondansetron 4 mg tablet,disintegrating 4 mg PO Q8H PRN (Reason: nausea and vomiting) Qty: 10 0RF multivitamin Tablet 1 tab PO DAILY Qty: 0 atenolol 25 mg Tablet 25 mg PO DAILY levothyroxine [Synthroid] 150 mcg Tablet 150 mcg PO DAILY ezetimibe 10 mg Tablet 10 mg PO DAILY omega-3 fatty acids-vitamin E 1,000 mg Capsule 1 cap PO DAILY tramadol 50 mg tablet 50 mg PO Q8H PRN (Reason: pain) Qty: 14 0RF prednisone 20 mg tablet 40 mg PO DAILY Qty: 10 0RF rimegepant 75 mg tablet,disintegrating 75 mg PO Q OTHER DAY PRN (Reason: migraine headache) Qty: 10 0RF nortriptyline 10 mg capsule 10 mg PO BEDTIME Qty: 30 0RF metoclopramide HCl [Reglan] 10 mg tablet 10 mg PO Q6H PRN (Reason: nausea and vomiting) Qty: 14 0RF lorazepam [Ativan] 0.5 mg tablet 0.5 mg PO BID PRN (Reason: nausea and vomiting) Qty: 10 0RF hydrocodone-acetaminophen 5-325 mg tablet 1 tab PO Q4-6H PRN (Reason: pain) Qty: 10 0RF ketorolac 10 mg tablet 10 mg PO Q6H PRN (Reason: pain) Qty: 14 0RF lidocaine [Lidoderm] 5 % adhesive patch,medicated 1 patch TOP DAILY Qty: 15 0RF Rx Instructions: leave on most painful area for 12 hrs diazepam [Valium] 5 mg tablet 5 mg PO BID-QID PRN (Reason: muscle spasm) Qty: 10 0RF isosorbide mononitrate 30 mg tablet extended release 24 hr 30 mg PO DAILY Qty: 30 0RF hydrocodone-acetaminophen 5-325 mg tablet 1 tab PO Q4-6H PRN (Reason: pain) Qty: 10 0RF methylprednisolone [Medrol (Jabier)] 4 mg tablets,dose pack See Rx Instructions .ROUTE .COMPLEX Qty: 21 0RF Rx Instructions: orally per package directions diazepam [Valium] 5 mg tablet 5 mg PO BID-QID PRN (Reason: muscle spasm) Qty: 10 0RF hydrocodone-acetaminophen 5-325 mg tablet 1 tab PO QID PRN (Reason: pain) Qty: 10 0RF morphine 15 mg tablet 15 mg PO Q6H PRN (Reason: pain) Qty: 10 0RF naloxone [Narcan] 4 mg/actuation spray,non-aerosol 4 mg intranasal Q2M Qty: 2 0RF Rx Instructions: spray 1 dose into ONE nostril; alternate nostrils w each dose until help arrives metoclopramide HCl [Reglan] 10 mg tablet 10 mg PO Q6H PRN (Reason: nausea and vomiting) Qty: 14 0RF morphine 15 mg tablet 15 mg PO Q6H PRN (Reason: pain) Qty: 15 0RF dfbxlpxprf-dnmguccrsnsvr-gfxb [Fioricet] 50-300-40 mg capsule 1 cap PO Q4-6H PRN (Reason: pain) Qty: 14 0RF isosorbide mononitrate 60 mg tablet extended release 24 hr 60 mg PO QAM Qty: 30 0RF methylprednisolone [Medrol (Jabier)] 4 mg tablets,dose pack See Rx Instructions .ROUTE .COMPLEX Qty: 21 0RF Rx Instructions: for 6 days potassium chloride 10 mEq capsule, extended release 20 meq PO DAILY cholecalciferol (vitamin D3) 50 mcg (2,000 unit) capsule 50 mcg PO DAILY Eliquis 5 mg tablet 5 mg PO BID Referrals: Kris Buck DO [Physician] - Aurelio Levin MD [Physician] - Yuli Lang PA-C [Primary Care Provider] - Stand Alone Forms: Patient Portal/API
[2024-03-18] MEDS: HYDROMORPHONE 1 MG INJ IM (09:09)
[2024-03-18 09:22] VITALS: BP 151/65; PULSE 64; RESP 16; O2SAT 99
== END 2024-03-18 09:23 | disposition home or self-care (01) ==
PROVIDERS: Emergency Provider Emergency Medicine; PCP Physician Assistant
DX: M54.16 Radiculopathy, lumbar region (principal)
CPT/HCPCS: 96372; 99283; J1170

== ENCOUNTER 2024-04-09 09:57 | Emergency (ER) | payer MEDICARE, OTHER, SELFPAY ==
[2021-06-25 17:33] VITALS: BMI 28.1
[2024-04-09 10:00] VITALS: BP 163/97; PULSE 64; RESP 16; TEMP 36.7; O2SAT 99; BMI 27.3
--- NOTE | 2024-04-09 10:22 | ED.BACK ---
HPI - Back Pain/Injury General Chief Complaint: Back Pain/Injury Stated Complaint: lower back pain Time Seen by Provider: 04/09/24 10:06 Source: patient Mode of arrival: Ambulatory History of Present Illness HPI Narrative: 73-year-old female. Known history of degenerative disc disease in the lumbar spine. Never had surgery on her spine. No specific injury but she states this morning started have pain in the right-sided lower spine that radiates down her right leg. No fevers. No trauma. No urinary symptoms. No change in bowel habits. No skin changes. Took some Tylenol earlier today without any improvement. Related Data Home Medications Medication Instructions Recorded Confirmed aspirin 81 mg chewable tablet 81 mg PO QAM 07/26/20 12/23/21 atenolol 25 mg tablet 25 mg PO DAILY 06/25/21 12/23/21 ezetimibe 10 mg tablet 10 mg PO DAILY 06/25/21 12/23/21 levothyroxine 150 mcg tablet 150 mcg PO DAILY 06/25/21 12/23/21 (Synthroid) multivitamin 1 tab PO DAILY ##0 06/25/21 12/23/21 omega-3 fatty acids-vitamin E 1 cap PO DAILY 06/25/21 12/23/21 1,000 mg capsule furosemide 20 mg tablet 10 mg PO QAM 07/09/21 12/23/21 apixaban 5 mg tablet (Eliquis) 5 mg PO BID 07/22/21 12/23/21 cholecalciferol (vitamin D3) 50 50 mcg PO DAILY 07/22/21 12/23/21 mcg (2,000 unit) capsule potassium chloride 10 mEq 20 meq PO DAILY 07/22/21 12/23/21 capsule,extended release Previous Rx's Medication Instructions Recorded ondansetron 4 mg disintegrating 4 mg PO Q8H PRN nausea and 06/24/21 tablet vomiting #10 tabs tramadol 50 mg tablet 50 mg PO Q8H PRN pain #14 tabs 02/28/22 piiwpiayql-uervhixtkovwz-irgoiard 1 cap PO Q6H PRN pain #10 caps 05/30/22 50 mg-300 mg-40 mg capsule (Fioricet) ondansetron 4 mg disintegrating 4 mg PO Q6-8H PRN nausea and 06/15/22 tablet vomiting #10 tabs rizatriptan 10 mg tablet (Maxalt) 10 mg PO Q2-4H PRN migraine 06/16/22 headache #10 tabs nortriptyline 10 mg capsule 10 mg PO BEDTIME #30 caps 06/17/22 prednisone 20 mg tablet 40 mg (2 x 20 mg) PO DAILY #10 tabs 06/17/22 rimegepant 75 mg disintegrating 75 mg PO Q OTHER DAY PRN migraine 06/17/22 tablet headache #10 tabs metoclopramide HCl 10 mg tablet 10 mg PO Q6H PRN nausea and 06/18/22 (Reglan) vomiting #14 tabs lorazepam 0.5 mg tablet (Ativan) 0.5 mg PO BID PRN nausea and 06/19/22 vomiting #10 tabs diazepam 5 mg tablet (Valium) 5 mg PO BID-QID PRN muscle spasm 08/08/22 #10 tabs hydrocodone 5 mg-acetaminophen 325 1 tab PO Q4-6H PRN pain #10 tabs 08/08/22 mg tablet ketorolac 10 mg tablet 10 mg PO Q6H PRN pain #14 tabs 08/08/22 lidocaine 5 % topical patch 1 patch topical DAILY #15 ea 08/08/22 (Lidoderm) furosemide 20 mg tablet (Lasix) 20 mg PO DAILY #3 tabs 01/23/23 isosorbide mononitrate 30 mg 30 mg PO DAILY #30 tabs 01/24/23 tablet,extended release 24 hr diazepam 5 mg tablet (Valium) 5 mg PO BID-QID PRN muscle spasm 03/12/23 #10 tabs hydrocodone 5 mg-acetaminophen 325 1 tab PO Q4-6H PRN pain #10 tabs 03/12/23 mg tablet methylprednisolone 4 mg tablets in See Rx Instructions PO .COMPLEX 03/12/23 a dose pack (Medrol (Jabier)) #21 ea hydrocodone 5 mg-acetaminophen 325 1 tab PO QID PRN pain #10 tabs 09/11/23 mg tablet ondansetron 4 mg disintegrating 4 mg PO Q8H PRN nausea and 09/17/23 tablet vomiting #10 tabs metoclopramide HCl 10 mg tablet 10 mg PO Q6H PRN nausea and 09/19/23 (Reglan) vomiting #14 tabs morphine 15 mg immediate release 15 mg PO Q6H PRN pain #10 tabs 09/19/23 tablet morphine 15 mg immediate release 15 mg PO Q6H PRN pain #15 tabs 09/19/23 tablet naloxone 4 mg/actuation nasal 4 mg intranasal Q2M #2 ea 09/19/23 spray (Narcan) aevaxnknvu-lrreqizioqlcz-qgacwygt 1 cap PO Q4-6H PRN pain #14 caps 10/10/23 50 mg-300 mg-40 mg capsule (Fioricet) isosorbide mononitrate 60 mg 60 mg PO QAM #30 tabs 01/02/24 tablet,extended release 24 hr methylprednisolone 4 mg tablets in See Rx Instructions PO .COMPLEX 03/17/24 a dose pack (Medrol (Jabier)) #21 ea hydrocodone 5 mg-acetaminophen 325 1 tab PO Q8H PRN pain #14 tabs 03/18/24 mg tablet cyclobenzaprine 10 mg tablet 10 mg PO TID PRN muscle spasm #14 04/09/24 tabs hydrocodone 5 mg-acetaminophen 325 1 tab PO Q4-6H PRN pain #10 tabs 04/09/24 mg tablet Allergies Allergy/AdvReac Type Severity Reaction Status Date / Time lisinopril Allergy Severe Anaphylaxis Verified 04/09/24 10:04 metformin AdvReac Vomiting Verified 04/09/24 10:04 Review of Systems Constitutional Constitutional: Reports system reviewed and no additional complaints, except as documented Musculoskeletal Musculoskeletal: Reports system reviewed and no additional complaints, except as documented Integumentary/Breasts Skin/Breast: Reports system reviewed and no additional complaints, except as documented Patient History Medical History UTI (urinary tract infection) Facet arthropathy, lumbar Atrial fibrillation Lumbar radiculopathy Tinnitus Nose fracture (~06/29/21) HLD (hyperlipidemia) Heart murmur Chronic pancreatitis Depression Chronic back pain Breast cancer Migraine headache Hypothyroidism Hypertension Surgical History Hx of tonsillectomy History of colonoscopy Hx of oophorectomy History of hysterectomy Hx of breast surgery Hx of cholecystectomy Family History Father Brain tumor Congestive heart failure Mother Hypertension Stroke Grandfather Stroke Social History household members: spouse Smoking Status: Former smoker alcohol intake: current Smoking Status: Former smoker tobacco type: cigarettes alcohol intake frequency: a few times a month Alcohol type: wine Substance Use Type: does not use Exam Initial Vital Signs Initial Vital Signs: Vital Signs Temperature 98.1 F 04/09/24 10:00 Pulse Rate 64 04/09/24 10:00 Respiratory Rate 16 04/09/24 10:00 Blood Pressure 163/97 H 04/09/24 10:00 Pulse Oximetry 99 04/09/24 10:00 Oxygen Delivery Method Room Air 04/09/24 10:00 Const General: cooperative and healthy appearing Back/Spine/Pelvis Other: Discomfort to palpation with muscle fullness in the right-sided lumbar paraspinal region. Neuro General: patient alert and patient awake Course Orders Ordered: Hydromorphone HCl (Hydromorphone 1 Mg Inj) 1 mg IM NOW ONE Stop: 04/09/24 10:24 Ketorolac Tromethamine (Ketorolac 30 Mg/Ml Vial) 30 mg IM NOW ONE Stop: 04/09/24 10:24 Vital Signs Vital signs: Vital Signs - 8 hr 04/09/24 10:00 Temperature 98.1 F Pulse Rate 64 Respiratory Rate 16 Blood Pressure 163/97 H Pulse Oximetry 99 Oxygen Delivery Method Room Air MDM - Back Pain/Injury MDM Narrative Medical decision making narrative: Patient has muscle fullness in the right-sided lumbar paraspinal region most consistent with a muscle spasm. No indication for any radiologic studies. I do think that she would benefit from anti-inflammatories and a muscle relaxer. She has had issues like this in the past and she states that after medications her symptoms will resolve. Will discharge home with medications. She was given return precautions. Discharge Plan Departure Patient Disposition: Home Clinical Impression: Low back pain Instructions: DI for Low Back Pain Activity Restrictions/Additional Instructions: Recommend that you continue to take all of your medications as directed. Can also try conservative measures such as heat/ice and also massage and light stretching. Contact your primary doctor for a follow-up. Return to the emergency department for new symptoms. Prescriptions: New cyclobenzaprine 10 mg tablet 10 mg PO TID PRN (Reason: muscle spasm) Qty: 14 0RF hydrocodone-acetaminophen 5-325 mg tablet 1 tab PO Q4-6H PRN (Reason: pain) Qty: 10 0RF No Action aspirin 81 mg Tablet,Chewable 81 mg PO QAM ondansetron 4 mg tablet,disintegrating 4 mg PO Q8H PRN (Reason: nausea and vomiting) Qty: 10 0RF furosemide 20 mg Tablet 10 mg PO QAM unbjntjefp-bdvkulyvbibvy-pwhb [Fioricet] 50-300-40 mg capsule 1 cap PO Q6H PRN (Reason: pain) Qty: 10 0RF ondansetron 4 mg tablet,disintegrating 4 mg PO Q6-8H PRN (Reason: nausea and vomiting) Qty: 10 0RF rizatriptan [Maxalt] 10 mg tablet 10 mg PO Q2-4H PRN (Reason: migraine headache) Qty: 10 0RF Rx Instructions: do not exceed 3 doses per 24 hrs furosemide [Lasix] 20 mg tablet 20 mg PO DAILY Qty: 3 0RF ondansetron 4 mg tablet,disintegrating 4 mg PO Q8H PRN (Reason: nausea and vomiting) Qty: 10 0RF multivitamin Tablet 1 tab PO DAILY Qty: 0 atenolol 25 mg Tablet 25 mg PO DAILY levothyroxine [Synthroid] 150 mcg Tablet 150 mcg PO DAILY ezetimibe 10 mg Tablet 10 mg PO DAILY omega-3 fatty acids-vitamin E 1,000 mg Capsule 1 cap PO DAILY tramadol 50 mg tablet 50 mg PO Q8H PRN (Reason: pain) Qty: 14 0RF prednisone 20 mg tablet 40 mg PO DAILY Qty: 10 0RF rimegepant 75 mg tablet,disintegrating 75 mg PO Q OTHER DAY PRN (Reason: migraine headache) Qty: 10 0RF nortriptyline 10 mg capsule 10 mg PO BEDTIME Qty: 30 0RF metoclopramide HCl [Reglan] 10 mg tablet 10 mg PO Q6H PRN (Reason: nausea and vomiting) Qty: 14 0RF lorazepam [Ativan] 0.5 mg tablet 0.5 mg PO BID PRN (Reason: nausea and vomiting) Qty: 10 0RF hydrocodone-acetaminophen 5-325 mg tablet 1 tab PO Q4-6H PRN (Reason: pain) Qty: 10 0RF ketorolac 10 mg tablet 10 mg PO Q6H PRN (Reason: pain) Qty: 14 0RF lidocaine [Lidoderm] 5 % adhesive patch,medicated 1 patch TOP DAILY Qty: 15 0RF Rx Instructions: leave on most painful area for 12 hrs diazepam [Valium] 5 mg tablet 5 mg PO BID-QID PRN (Reason: muscle spasm) Qty: 10 0RF isosorbide mononitrate 30 mg tablet extended release 24 hr 30 mg PO DAILY Qty: 30 0RF hydrocodone-acetaminophen 5-325 mg tablet 1 tab PO Q4-6H PRN (Reason: pain) Qty: 10 0RF methylprednisolone [Medrol (Jabier)] 4 mg tablets,dose pack See Rx Instructions .ROUTE .COMPLEX Qty: 21 0RF Rx Instructions: orally per package directions diazepam [Valium] 5 mg tablet 5 mg PO BID-QID PRN (Reason: muscle spasm) Qty: 10 0RF hydrocodone-acetaminophen 5-325 mg tablet 1 tab PO QID PRN (Reason: pain) Qty: 10 0RF morphine 15 mg tablet 15 mg PO Q6H PRN (Reason: pain) Qty: 10 0RF naloxone [Narcan] 4 mg/actuation spray,non-aerosol 4 mg intranasal Q2M Qty: 2 0RF Rx Instructions: spray 1 dose into ONE nostril; alternate nostrils w each dose until help arrives metoclopramide HCl [Reglan] 10 mg tablet 10 mg PO Q6H PRN (Reason: nausea and vomiting) Qty: 14 0RF morphine 15 mg tablet 15 mg PO Q6H PRN (Reason: pain) Qty: 15 0RF ilwzvyoehr-bjvqlvfagfdvx-vufd [Fioricet] 50-300-40 mg capsule 1 cap PO Q4-6H PRN (Reason: pain) Qty: 14 0RF isosorbide mononitrate 60 mg tablet extended release 24 hr 60 mg PO QAM Qty: 30 0RF methylprednisolone [Medrol (Jabier)] 4 mg tablets,dose pack See Rx Instructions .ROUTE .COMPLEX Qty: 21 0RF Rx Instructions: for 6 days hydrocodone-acetaminophen 5-325 mg tablet 1 tab PO Q8H PRN (Reason: pain) Qty: 14 0RF potassium chloride 10 mEq capsule, extended release 20 meq PO DAILY cholecalciferol (vitamin D3) 50 mcg (2,000 unit) capsule 50 mcg PO DAILY Eliquis 5 mg tablet 5 mg PO BID Referrals: Yuli Lang PA-C [Primary Care Provider] - Stand Alone Forms: Patient Portal/API
[2024-04-09] MEDS: HYDROMORPHONE 1 MG INJ IM (10:32)
[2024-04-09] MEDS: KETOROLAC 30 MG/ML VIAL IM (10:32)
== END 2024-04-09 10:44 | disposition home or self-care (01) ==
PROVIDERS: Emergency Provider Emergency Medicine; PCP Physician Assistant
DX: M54.50 Low back pain, unspecified (principal)
CPT/HCPCS: 96372; 99283; J1170; J1885

== ENCOUNTER 2024-05-05 09:50 | Emergency (ER) | payer MEDICARE, OTHER, SELFPAY ==
[2021-06-25 17:33] VITALS: BMI 28.1
--- NOTE | 2024-05-05 09:56 | ED_ITS ---
HPI - General Adult General Chief complaint: Back Pain/Injury Stated complaint: Lower back pain X 2 days Time Seen by Provider: 05/05/24 09:56 Source: patient, RN notes reviewed and old records reviewed Mode of arrival: Ambulatory Limitations: no limitations History of Present Illness HPI narrative: 73-year-old female former smoker history of persistent atrial fibrillation with recent ablation, chronic back pain with known degenerative disc disease who presents with complaint of acute on chronic back pain. Patient states she has been taking Tylenol regularly. Denies any other daily medications for pain. Wendy simmons has seen Dr. Carter with PMR had multiple x-rays and is scheduled for an MRI later this month. Patient ambulated into the department. Patient states symptoms have flared up it is in her lower back radiates down her right leg. She states no new change in characterization other than the intensity. No new numbness tingling or weakness. She does not recall any injury or anything that may have flared it up. She denies any bowel or bladder incontinence. No saddle anesthesia. No fevers or chills. Patient has been taking Tylenol 650mg every 4 hours without improvement. Did discuss she has had prednisone in the past and not found it very helpful. Patient has follow up to discuss potential interventions after her MRI. Related Data Home Medications Medication Instructions Recorded Confirmed aspirin 81 mg chewable tablet 81 mg PO QAM 07/26/20 12/23/21 atenolol 25 mg tablet 25 mg PO DAILY 06/25/21 12/23/21 ezetimibe 10 mg tablet 10 mg PO DAILY 06/25/21 12/23/21 levothyroxine 150 mcg tablet 150 mcg PO DAILY 06/25/21 12/23/21 (Synthroid) multivitamin 1 tab PO DAILY ##0 06/25/21 12/23/21 omega-3 fatty acids-vitamin E 1 cap PO DAILY 06/25/21 12/23/21 1,000 mg capsule furosemide 20 mg tablet 10 mg PO QAM 07/09/21 12/23/21 apixaban 5 mg tablet (Eliquis) 5 mg PO BID 07/22/21 12/23/21 cholecalciferol (vitamin D3) 50 50 mcg PO DAILY 07/22/21 12/23/21 mcg (2,000 unit) capsule potassium chloride 10 mEq 20 meq PO DAILY 07/22/21 12/23/21 capsule,extended release Previous Rx's Medication Instructions Recorded ondansetron 4 mg disintegrating 4 mg PO Q8H PRN nausea and 06/24/21 tablet vomiting #10 tabs tramadol 50 mg tablet 50 mg PO Q8H PRN pain #14 tabs 02/28/22 phzjtzfact-hznmrbabnrzkm-qhanmsmz 1 cap PO Q6H PRN pain #10 caps 05/30/22 50 mg-300 mg-40 mg capsule (Fioricet) ondansetron 4 mg disintegrating 4 mg PO Q6-8H PRN nausea and 06/15/22 tablet vomiting #10 tabs rizatriptan 10 mg tablet (Maxalt) 10 mg PO Q2-4H PRN migraine 06/16/22 headache #10 tabs nortriptyline 10 mg capsule 10 mg PO BEDTIME #30 caps 06/17/22 prednisone 20 mg tablet 40 mg (2 x 20 mg) PO DAILY #10 tabs 06/17/22 rimegepant 75 mg disintegrating 75 mg PO Q OTHER DAY PRN migraine 06/17/22 tablet headache #10 tabs metoclopramide HCl 10 mg tablet 10 mg PO Q6H PRN nausea and 06/18/22 (Reglan) vomiting #14 tabs lorazepam 0.5 mg tablet (Ativan) 0.5 mg PO BID PRN nausea and 06/19/22 vomiting #10 tabs diazepam 5 mg tablet (Valium) 5 mg PO BID-QID PRN muscle spasm 08/08/22 #10 tabs hydrocodone 5 mg-acetaminophen 325 1 tab PO Q4-6H PRN pain #10 tabs 08/08/22 mg tablet ketorolac 10 mg tablet 10 mg PO Q6H PRN pain #14 tabs 08/08/22 lidocaine 5 % topical patch 1 patch topical DAILY #15 ea 08/08/22 (Lidoderm) furosemide 20 mg tablet (Lasix) 20 mg PO DAILY #3 tabs 01/23/23 isosorbide mononitrate 30 mg 30 mg PO DAILY #30 tabs 01/24/23 tablet,extended release 24 hr diazepam 5 mg tablet (Valium) 5 mg PO BID-QID PRN muscle spasm 03/12/23 #10 tabs hydrocodone 5 mg-acetaminophen 325 1 tab PO Q4-6H PRN pain #10 tabs 03/12/23 mg tablet methylprednisolone 4 mg tablets in See Rx Instructions PO .COMPLEX 03/12/23 a dose pack (Medrol (Jabier)) #21 ea hydrocodone 5 mg-acetaminophen 325 1 tab PO QID PRN pain #10 tabs 09/11/23 mg tablet ondansetron 4 mg disintegrating 4 mg PO Q8H PRN nausea and 09/17/23 tablet vomiting #10 tabs metoclopramide HCl 10 mg tablet 10 mg PO Q6H PRN nausea and 09/19/23 (Reglan) vomiting #14 tabs morphine 15 mg immediate release 15 mg PO Q6H PRN pain #10 tabs 09/19/23 tablet morphine 15 mg immediate release 15 mg PO Q6H PRN pain #15 tabs 09/19/23 tablet naloxone 4 mg/actuation nasal 4 mg intranasal Q2M #2 ea 09/19/23 spray (Narcan) nzeiayqaty-kwojjekdvplbw-ysdjyxgc 1 cap PO Q4-6H PRN pain #14 caps 10/10/23 50 mg-300 mg-40 mg capsule (Fioricet) isosorbide mononitrate 60 mg 60 mg PO QAM #30 tabs 01/02/24 tablet,extended release 24 hr methylprednisolone 4 mg tablets in See Rx Instructions PO .COMPLEX 03/17/24 a dose pack (Medrol (Jabier)) #21 ea hydrocodone 5 mg-acetaminophen 325 1 tab PO Q8H PRN pain #14 tabs 03/18/24 mg tablet cyclobenzaprine 10 mg tablet 10 mg PO TID PRN muscle spasm #14 04/09/24 tabs hydrocodone 5 mg-acetaminophen 325 1 tab PO Q4-6H PRN pain #10 tabs 04/09/24 mg tablet cyclobenzaprine 10 mg tablet 10 mg PO TID PRN muscle spasm #10 05/05/24 tabs hydrocodone 5 mg-acetaminophen 325 1 tab PO QID PRN pain #10 tabs 05/05/24 mg tablet Allergies Allergy/AdvReac Type Severity Reaction Status Date / Time lisinopril Allergy Severe Anaphylaxis Verified 04/09/24 10:04 metformin AdvReac Vomiting Verified 04/09/24 10:04 Review of Systems Review of Systems ROS Unobtainable: All systems reviewed & are unremarkable except as noted in HPI and below Patient History Medical History UTI (urinary tract infection) Facet arthropathy, lumbar Atrial fibrillation Lumbar radiculopathy Tinnitus Nose fracture (~06/29/21) HLD (hyperlipidemia) Heart murmur Chronic pancreatitis Depression Chronic back pain Breast cancer Migraine headache Hypothyroidism Hypertension Surgical History Hx of tonsillectomy History of colonoscopy Hx of oophorectomy History of hysterectomy Hx of breast surgery Hx of cholecystectomy Family History Father Brain tumor Congestive heart failure Mother Hypertension Stroke Grandfather Stroke Social History household members: spouse Smoking Status: Former smoker alcohol intake: current Smoking Status: Former smoker tobacco type: cigarettes alcohol intake frequency: a few times a month Alcohol type: wine Substance Use Type: does not use Exam Narrative Exam Narrative: GENERAL: Alert and oriented x three, elderly female in moderate distress. HEENT: Head normocephalic, atraumatic, EOMI, pupils reactive, face symmetric, moist mucous membranes NECK: Supple, full range of motion CARDIOVASCULAR: Regular rate and rhythm without murmurs, rubs or gallops. RESPIRATORY: Breath sounds equal bilaterally, no wheezes rales or rhonchi. ABDOMEN: Soft, nontender. Normoactive bowel sounds all 4 quadrants. No guarding or rebound, rigidity, no mass : No CVA tenderness BACK: No cervical, thoracic or lumbar vertebral point tenderness. Patient was mildly tender right lateral lumbar region and over the SI. Patient has normal range of motion. Patient's gait is normal. Rectal exam is deferred. No saddle anesthesia. Muscle strength is 5/5 in lower extremities, DTRs are 2/4 and lower extremities. Dorsalis pedis and tibialis pulses are 2+ and lower extremities. Sensation is intact in the lower extremities. EXTREMITIES: Normal range of motion, no clubbing or edema. Neurovascularly intact NEUROLOGICAL: Cranial nerves II through XII grossly intact. Moving all extre mities SKIN: Warm, dry, no petechiae, no rashes or lesions. Initial Vital Signs Initial Vital Signs: Vital Signs Temperature 98.3 F 05/05/24 10:03 Pulse Rate 78 05/05/24 10:03 Respiratory Rate 18 05/05/24 10:03 Blood Pressure 136/77 05/05/24 10:03 Pulse Oximetry 96 05/05/24 10:03 Oxygen Delivery Method Room Air 05/05/24 10:03 Course Orders Ordered: Discontinued Medications Hydromorphone HCl (Hydromorphone 1 Mg Inj) 1 mg IM NOW ONE Stop: 05/05/24 10:19 Last Admin: 05/05/24 10:32 Dose: 1 mg Documented By: RB Ketorolac Tromethamine (Ketorolac 30 Mg/Ml Vial) 30 mg IM NOW ONE Stop: 05/05/24 10:19 Last Admin: 05/05/24 10:31 Dose: 30 mg Documented By: RB Vital Signs Vital signs: Vital Signs - 8 hr 05/05/24 10:03 Temperature 98.3 F Pulse Rate 78 Respiratory Rate 18 Blood Pressure 136/77 Pulse Oximetry 96 Oxygen Delivery Method Room Air Medical Decision Making MDM Narrative Medical decision making narrative: 73 year old female with acute on chronic low back pain. Patient increased pain but no other acute changes. No acute neurologic or red flag changes. Patient has had outside imaging with x-rays in his scheduled for MR with PMR Dr. Pugh who she is following with. She has been taking Tylenol regularly 650 mg q.4 hours. States increased flare in seeking pain management. Discharge Plan Departure Patient Disposition: Home Clinical Impression: Acute exacerbation of chronic low back pain Instructions: DI for Low Back Pain Activity Restrictions/Additional Instructions: Follow up with your primary care physician and/or Dr. Pugh. You continue with Tylenol 650 mg every 4 hours unless you are taking [place], both of these medications have Tylenol or acetaminophen. You can only take 4000 mg of acetaminophen total in 24 hours. You can take 1-2 tablets of [place] every 6 hours as needed. This medication can make you sleepy do not drive, perform hazardous activities or make any major decisions while taking it. This medication will make you constipated please take a stool softener once to twice daily until stools are soft and regular. Can take muscle relaxer 1 tablet every 8 hours as needed. This medication can also make you sleepy do not drive, form has a activities or make any major decisions while taking it. Prescription sent to [facility]. Please return for fevers rapidly worsening symptoms, new loss of bowel or bladder control, new weakness numbness or inability to lift or move your leg or other new or concerning changes. Prescriptions: New hydrocodone-acetaminophen 5-325 mg tablet 1 tab PO QID PRN (Reason: pain) Qty: 10 0RF cyclobenzaprine 10 mg tablet 10 mg PO TID PRN (Reason: muscle spasm) Qty: 10 0RF No Action aspirin 81 mg Tablet,Chewable 81 mg PO QAM ondansetron 4 mg tablet,disintegrating 4 mg PO Q8H PRN (Reason: nausea and vomiting) Qty: 10 0RF furosemide 20 mg Tablet 10 mg PO QAM [id number] [Fioricet] 50-300-40 mg capsule 1 cap PO Q6H PRN (Reason: pain) Qty: 10 0RF ondansetron 4 mg tablet,disintegrating 4 mg PO Q6-8H PRN (Reason: nausea and vomiting) Qty: 10 0RF rizatriptan [Maxalt] 10 mg tablet 10 mg PO Q2-4H PRN (Reason: migraine headache) Qty: 10 0RF Rx Instructions: do not exceed 3 doses per 24 hrs furosemide [Lasix] 20 mg tablet 20 mg PO DAILY Qty: 3 0RF ondansetron 4 mg tablet,disintegrating 4 mg PO Q8H PRN (Reason: nausea and vomiting) Qty: 10 0RF cyclobenzaprine 10 mg tablet 10 mg PO TID PRN (Reason: muscle spasm) Qty: 14 0RF hydrocodone-acetaminophen 5-325 mg tablet 1 tab PO Q4-6H PRN (Reason: pain) Qty: 10 0RF multivitamin Tablet 1 tab PO DAILY Qty: 0 atenolol 25 mg Tablet 25 mg PO DAILY levothyroxine [Synthroid] 150 mcg Tablet 150 mcg PO DAILY ezetimibe 10 mg Tablet 10 mg PO DAILY omega-3 fatty acids-vitamin E 1,000 mg Capsule 1 cap PO DAILY tramadol 50 mg tablet 50 mg PO Q8H PRN (Reason: pain) Qty: 14 0RF prednisone 20 mg tablet 40 mg PO DAILY Qty: 10 0RF rimegepant 75 mg tablet,disintegrating 75 mg PO Q OTHER DAY PRN (Reason: migraine headache) Qty: 10 0RF nortriptyline 10 mg capsule 10 mg PO BEDTIME Qty: 30 0RF metoclopramide HCl [Reglan] 10 mg tablet 10 mg PO Q6H PRN (Reason: nausea and vomiting) Qty: 14 0RF lorazepam [Ativan] 0.5 mg tablet 0.5 mg PO BID PRN (Reason: nausea and vomiting) Qty: 10 0RF hydrocodone-acetaminophen 5-325 mg tablet 1 tab PO Q4-6H PRN (Reason: pain) Qty: 10 0RF ketorolac 10 mg tablet 10 mg PO Q6H PRN (Reason: pain) Qty: 14 0RF lidocaine [Lidoderm] 5 % adhesive patch,medicated 1 patch TOP DAILY Qty: 15 0RF Rx Instructions: leave on most painful area for 12 hrs diazepam [Valium] 5 mg tablet 5 mg PO BID-QID PRN (Reason: muscle spasm) Qty: 10 0RF isosorbide mononitrate 30 mg tablet extended release 24 hr 30 mg PO DAILY Qty: 30 0RF hydrocodone-acetaminophen 5-325 mg tablet 1 tab PO Q4-6H PRN (Reason: pain) Qty: 10 0RF methylprednisolone [Medrol (Jabier)] 4 mg tablets,dose pack See Rx Instructions .ROUTE .COMPLEX Qty: 21 0RF Rx Instructions: orally per package directions diazepam [Valium] 5 mg tablet 5 mg PO BID-QID PRN (Reason: muscle spasm) Qty: 10 0RF hydrocodone-acetaminophen 5-325 mg tablet 1 tab PO QID PRN (Reason: pain) Qty: 10 0RF morphine 15 mg tablet 15 mg PO Q6H PRN (Reason: pain) Qty: 10 0RF naloxone [Narcan] 4 mg/actuation spray,non-aerosol 4 mg intranasal Q2M Qty: 2 0RF Rx Instructions: spray 1 dose into ONE nostril; alternate nostrils w each dose until help arrives metoclopramide HCl [Reglan] 10 mg tablet 10 mg PO Q6H PRN (Reason: nausea and vomiting) Qty: 14 0RF morphine 15 mg tablet 15 mg PO Q6H PRN (Reason: pain) Qty: 15 0RF zcuerbdqle-exebyjnvvzyjv-jgbq [Fioricet] 50-300-40 mg capsule 1 cap PO Q4-6H PRN (Reason: pain) Qty: 14 0RF isosorbide mononitrate 60 mg tablet extended release 24 hr 60 mg PO QAM Qty: 30 0RF methylprednisolone [Medrol (Jabier)] 4 mg tablets,dose pack See Rx Instructions .ROUTE .COMPLEX Qty: 21 0RF Rx Instructions: for 6 days hydrocodone-acetaminophen 5-325 mg tablet 1 tab PO Q8H PRN (Reason: pain) Qty: 14 0RF potassium chloride 10 mEq capsule, extended release 20 meq PO DAILY cholecalciferol (vitamin D3) 50 mcg (2,000 unit) capsule 50 mcg PO DAILY Eliquis 5 mg tablet 5 mg PO BID Referrals: Niles Pugh MD [Physician] - Yuli Lang PA-C [Primary Care Provider] - Stand Alone Forms: Patient Portal/API
[2024-05-05 10:03] VITALS: BP 136/77; PULSE 78; RESP 18; TEMP 36.8; O2SAT 96; BMI 27.3
[2024-05-05] MEDS: KETOROLAC 30 MG/ML VIAL IM (10:31)
[2024-05-05] MEDS: HYDROMORPHONE 1 MG INJ IM (10:32)
== END 2024-05-05 10:40 | disposition home or self-care (01) ==
PROVIDERS: Emergency Provider Emergency Medicine; PCP Physician Assistant
DX: M54.50 Low back pain, unspecified (principal); G89.29 Other chronic pain
CPT/HCPCS: 96372; 99283; 99284; J1170; J1885

== ENCOUNTER 2024-06-11 15:57 | Emergency (ER) | payer MEDICARE, OTHER, SELFPAY ==
[2021-06-25 17:33] VITALS: BMI 28.1
[2024-06-11] VITALS (11 sets, daily range): BP systolic 140–166; BP diastolic 74–104; PULSE 59–94; RESP 10–20; TEMP 36.2; O2SAT 94–97; BMI 27.3
--- NOTE | 2024-06-11 16:12 | EKG_ITS ---
[address] [address] Test Date: 2024-06-11 Pat Name: Jackie Javed Department: [facility] Room: Gender: Female Global Lead: HERBERT : 1950 Requested By: Order Number: [id number] Reading MD: Measurements Intervals [place] Rate: 84 P: [place]: QRS: -18 QRSD: 72 T: -8 QT: 358 QTc: 423 Interpretive Statements Undetermined rhythm Low voltage QRS Electronically Signed On 06-12-2024 9:21:10 PDT by Bennei Damian
--- NOTE | 2024-06-11 16:22 | PC.NURSE ---
Currently denying chest pain, last nitro 1 hr ago. Total of 4 sublingial nitro. Seen at [facility] for chest pain and discharged. Currently complaining of a headache. No pain meds [employer]
--- NOTE | 2024-06-11 16:44 | ED.HA ---
HPI - Headache General Chief Complaint: Headache Stated Complaint: chest px, migraine Time Seen by Provider: 06/11/24 16:20 Source: patient Mode of arrival: Ambulatory Limitations: no limitations History of Present Illness HPI Narrative: Patient is a 73-year-old female who is here for evaluation of chest pain and also migraine headache. She states that she has had 4 episodes of sharp chest pain throughout the day today. She does have nitro and she states she took the nitro which made her chest pain better. She states that 3 of the episodes occurred earlier today when she was in the waiting room and an outside emergency department where she was being seen for migraine headache. She had a workup performed with 2- troponins and a nonischemic EKG and negative chest x-ray. She received a ?migraine cocktail in according to the ED note her symptoms were much improved. She was sent home with Dianna. She states that since that visit she has had 1 further episode of chest pain. States she continues to have headache. She states that her headache was not any better before she left the emergency department. Per report she has been seen several times over the past couple days for headache at the same ER. She states she was here because ?they do not know what to do with me? she reports this is her normal migraine headache. She also states she tested positive for COVID over the weekend. She tested herself again today and it was negative. Her is still positive. Related Data Home Medications Medication Instructions Recorded Confirmed aspirin 81 mg chewable tablet 81 mg PO QAM 07/26/20 12/23/21 atenolol 25 mg tablet 25 mg PO DAILY 06/25/21 12/23/21 ezetimibe 10 mg tablet 10 mg PO DAILY 06/25/21 12/23/21 levothyroxine 150 mcg tablet 150 mcg PO DAILY 06/25/21 12/23/21 (Synthroid) multivitamin 1 tab PO DAILY ##0 06/25/21 12/23/21 omega-3 fatty acids-vitamin E 1 cap PO DAILY 06/25/21 12/23/21 1,000 mg capsule furosemide 20 mg tablet 10 mg PO QAM 07/09/21 12/23/21 apixaban 5 mg tablet (Eliquis) 5 mg PO BID 07/22/21 12/23/21 cholecalciferol (vitamin D3) 50 50 mcg PO DAILY 07/22/21 12/23/21 mcg (2,000 unit) capsule potassium chloride 10 mEq 20 meq PO DAILY 07/22/21 12/23/21 capsule,extended release Previous Rx's Medication Instructions Recorded ondansetron 4 mg disintegrating 4 mg PO Q8H PRN nausea and 06/24/21 tablet vomiting #10 tabs tramadol 50 mg tablet 50 mg PO Q8H PRN pain #14 tabs 02/28/22 [id number]-dbbajmewqzzcg-enwcvcei 1 cap PO Q6H PRN pain #10 caps 05/30/22 50 mg-300 mg-40 mg capsule (Fioricet) ondansetron 4 mg disintegrating 4 mg PO Q6-8H PRN nausea and 06/15/22 tablet vomiting #10 tabs rizatriptan 10 mg tablet (Maxalt) 10 mg PO Q2-4H PRN migraine 06/16/22 headache #10 tabs nortriptyline 10 mg capsule 10 mg PO BEDTIME #30 caps 06/17/22 prednisone 20 mg tablet 40 mg (2 x 20 mg) PO DAILY #10 tabs 06/17/22 rimegepant 75 mg disintegrating 75 mg PO Q OTHER DAY PRN migraine 06/17/22 tablet headache #10 tabs metoclopramide HCl 10 mg tablet 10 mg PO Q6H PRN nausea and 06/18/22 (Reglan) vomiting #14 tabs lorazepam 0.5 mg tablet (Ativan) 0.5 mg PO BID PRN nausea and 06/19/22 vomiting #10 tabs diazepam 5 mg tablet (Valium) 5 mg PO BID-QID PRN muscle spasm 08/08/22 #10 tabs hydrocodone 5 mg-acetaminophen 325 1 tab PO Q4-6H PRN pain #10 tabs 08/08/22 mg tablet ketorolac 10 mg tablet 10 mg PO Q6H PRN pain #14 tabs 08/08/22 lidocaine 5 % topical patch 1 patch topical DAILY #15 ea 08/08/22 (Lidoderm) furosemide 20 mg tablet (Lasix) 20 mg PO DAILY #3 tabs 01/23/23 isosorbide mononitrate 30 mg 30 mg PO DAILY #30 tabs 01/24/23 tablet,extended release 24 hr diazepam 5 mg tablet (Valium) 5 mg PO BID-QID PRN muscle spasm 03/12/23 #10 tabs hydrocodone 5 mg-acetaminophen 325 1 tab PO Q4-6H PRN pain #10 tabs 03/12/23 mg tablet methylprednisolone 4 mg tablets in See Rx Instructions PO .COMPLEX 03/12/23 a dose pack (Medrol (Jabier)) #21 ea hydrocodone 5 mg-acetaminophen 325 1 tab PO QID PRN pain #10 tabs 09/11/23 mg tablet ondansetron 4 mg disintegrating 4 mg PO Q8H PRN nausea and 09/17/23 tablet vomiting #10 tabs metoclopramide HCl 10 mg tablet 10 mg PO Q6H PRN nausea and 09/19/23 (Reglan) vomiting #14 tabs morphine 15 mg immediate release 15 mg PO Q6H PRN pain #10 tabs 09/19/23 tablet morphine 15 mg immediate release 15 mg PO Q6H PRN pain #15 tabs 09/19/23 tablet naloxone 4 mg/actuation nasal 4 mg intranasal Q2M #2 ea 09/19/23 spray (Narcan) [id number]-uumvogbyohyqd-nnneoiyo 1 cap PO Q4-6H PRN pain #14 caps 10/10/23 50 mg-300 mg-40 mg capsule (Fioricet) isosorbide mononitrate 60 mg 60 mg PO QAM #30 tabs 01/02/24 tablet,extended release 24 hr methylprednisolone 4 mg tablets in See Rx Instructions PO .COMPLEX 03/17/24 a dose pack (Medrol (Jabier)) #21 ea hydrocodone 5 mg-acetaminophen 325 1 tab PO Q8H PRN pain #14 tabs 03/18/24 mg tablet cyclobenzaprine 10 mg tablet 10 mg PO TID PRN muscle spasm #14 04/09/24 tabs hydrocodone 5 mg-acetaminophen 325 1 tab PO Q4-6H PRN pain #10 tabs 04/09/24 mg tablet cyclobenzaprine 10 mg tablet 10 mg PO TID PRN muscle spasm #10 05/05/24 tabs hydrocodone 5 mg-acetaminophen 325 1 tab PO QID PRN pain #10 tabs 05/05/24 mg tablet Allergies Allergy/AdvReac Type Severity Reaction Status Date / Time lisinopril Allergy Severe Anaphylaxis Verified 04/09/24 10:04 metformin AdvReac Vomiting Verified 04/09/24 10:04 Review of Systems Review of Systems ROS Unobtainable: All systems reviewed & are unremarkable except as noted in HPI and below Patient History Medical History UTI (urinary tract infection) Facet arthropathy, lumbar Atrial fibrillation Lumbar radiculopathy Tinnitus Nose fracture (~06/29/21) HLD (hyperlipidemia) Heart murmur Chronic pancreatitis Depression Chronic back pain Breast cancer Migraine headache Hypothyroidism Hypertension Surgical History Hx of tonsillectomy History of colonoscopy Hx of oophorectomy History of hysterectomy Hx of breast surgery Hx of cholecystectomy Family History Father Brain tumor Congestive heart failure Mother Hypertension Stroke Grandfather Stroke Social History household members: spouse Smoking Status: Former smoker alcohol intake: current Smoking Status: Former smoker tobacco type: cigarettes alcohol intake frequency: a few times a month Alcohol type: wine Substance Use Type: does not use Exam Initial Vital Signs Initial Vital Signs: Vital Signs Temperature 97.1 F L 06/11/24 15:59 Pulse Rate 59 L 06/11/24 15:59 Respiratory Rate 20 06/11/24 15:59 Blood Pressure 159/89 H 06/11/24 15:59 Pulse Oximetry 97 06/11/24 15:59 Oxygen Delivery Method Room Air 06/11/24 15:59 Const General: cooperative, comfortable and No ill appearing HENMT Head: normal to inspection and normocephalic Resp Effort & Inspection: normal respiratory effort Auscultation: clear to auscultation bilaterally Cardio Rate: regular rate Rhythm: regular rhythm GI Inspection: normal to inspection and non-distended Palpation: soft Skin General: no rashes or lesions noted Neuro General: patient alert, patient awake, patient oriented x3 and moves all extremities Extrem General: normal to inspection and capillary refill normal Course Orders Ordered: ED Orders 06/11/24 16:12 EKG-12 Lead Stat 06/11/24 16:50 Complete Blood Count AUTO DIFF Stat Comprehensive Metabolic Panel Stat Lipase Stat Troponin & CK Cardiac Panel Stat 06/11/24 17:20 Covid-19 + FLU A/B + RSV - PCR Stat EKG-12 Lead Stat Discontinued Medications Haloperidol (Haloperidol 5 Mg/Ml Vial) 2.5 mg IV NOW ONE Stop: 06/11/24 16:52 Last Admin: 06/11/24 17:10 Dose: 2.5 mg Documented By: HERBERT Hydromorphone HCl (Hydromorphone 1 Mg Inj) 1 mg IV NOW ONE Stop: 06/11/24 18:06 Last Admin: 06/11/24 18:10 Dose: 1 mg Documented By: HERBERT Sodium Chloride (Normal Saline 0.9%) 1,000 mls @ 1,000 mls/hr IV BOLUS ONE Stop: 06/11/24 17:44 Last Infusion: 06/11/24 18:11 Dose: Infused Documented By: Admin: 06/11/24 17:11 Dose: 1,000 mls/hr Documented By: HERBERT Acetaminophen (Ofirmev) 1,000 mg in 100 mls @ 400 mls/hr IV NOW ONE Stop: 06/11/24 17:05 Last Infusion: 06/11/24 17:41 Dose: Infused Documented By: Admin: 06/11/24 17:10 Dose: 400 mls/hr Documented By: HERBERT Vital Signs Vital signs: Vital Signs - 8 hr 06/11/24 15:59 06/11/24 16:10 06/11/24 16:11 Temperature 97.1 F L Pulse Rate 59 L 93 H 94 H Respiratory Rate 20 13 10 L Blood Pressure 159/89 H Pulse Oximetry 97 94 Oxygen Delivery Method Room Air 06/11/24 16:11 06/11/24 16:34 06/11/24 16:34 Temperature Pulse Rate 84 Respiratory Rate 16 Blood Pressure 146/76 H 157/77 H Pulse Oximetry 96 Oxygen Delivery Method 06/11/24 17:00 06/11/24 17:00 06/11/24 17:19 Temperature Pulse Rate 91 H 88 Respiratory Rate 12 Blood Pressure 146/90 H Pulse Oximetry 95 95 Oxygen Delivery Method 06/11/24 17:19 06/11/24 17:30 06/11/24 17:30 Temperature Pulse Rate 89 Respiratory Rate 18 Blood Pressure 140/104 H 161/95 H Pulse Oximetry 95 Oxygen Delivery Method 06/11/24 18:00 06/11/24 18:01 06/11/24 18:01 Temperature Pulse Rate 86 86 Respiratory Rate 20 Blood Pressure 166/74 H Pulse Oximetry 97 97 Oxygen Delivery Method MDM - Headache Medical Records Attestation: I reviewed the patient's medical records. Lab Data Attestation: I reviewed the patient's lab results. 06/11/24 16:50 06/11/24 16:50 Labs: Lab Results 06/11/24 06/11/24 Range/Units 16:50 17:20 WBC 17.5 H (4.5-11.0) X10^3/uL RBC 5.06 (4.0-5.2) X10^6/uL Hgb 15.6 (12.0-16.0) g/dL Hct 46.6 H (36-46) % MCV 92.0 (80-100) fL MCH 30.8 (26-34) PG MCHC 33.5 (30-36) % RDW 14.8 (11.6-14.8) % Plt Count 237 (150-400) X10^3/uL Neut % (Auto) 85.2 H (50-75) % Lymph % (Auto) 9.7 L (25-40) % [place] % (Auto) 4.6 (3-14) % Eos % (Auto) 0.0 L (2-4) % Baso % (Auto) 0.5 (0-2) % Neut # (Auto) 64592 H (7793-1209) /uL Lymph # (Auto) 1700 (7308-8198) /uL [place] # (Auto) 800 (0-900) /uL Eos # (Auto) 0 (0-450) /uL Baso # (Auto) 100 (0-100) /uL Sodium 137 (137-145) mmol/L Potassium 4.0 (3.4-5.1) mmol/L Chloride 109 H (98-107) mmol/L Carbon Dioxide 19 L (22-32) mmol/L BUN 29 H (7-17) mg/dL Creatinine 1.06 H (0.52-1.04) mg/dL Estimated GFR 55 L (>60) mL/min BUN/Creatinine Ratio 27.4 H (6-22) Glucose 146 H (80-110) mg/dL Calcium 9.1 (8.4-10.2) mg/dL Total Bilirubin 0.6 (0.2-1.3) mg/dL AST 31 (14-36) IU/L ALT 26 (<35) IU/L Alkaline Phosphatase 91 (38-126) U/L Total Creatine Kinase 217 H (30-135) U/L Troponin I < 0.012 (0.01-0.034) ng/mL Total Protein 6.7 (6.3-8.2) g/dL Albumin 3.9 (3.5-5.0) g/dL Globulin 2.8 (1.7-4.1) g/dL Albumin/Globulin Ratio 1.4 (1.0-2.8) Lipase 66 (23-300) U/L SARS-CoV-2 (PCR) Positive H (Negative) Influenza A (RT-PCR) Flu a negative (NEGATIVE) Influenza B (RT-PCR) Flu b negative (NEGATIVE) RSV (PCR) Negative (Negative) ECG Data Attestation: I personally reviewed and interpreted this ECG as follows: Interpretation: Presentation EKG Atrial fibrillation Ventricular rate of 84 Normal axis Normal QRS Nonspecific ST T wave changes Repeat EKG Atrial flutter Ventricular rate of [address] T wave changes Both EKGs unchanged from EKG available from ED visit earlier today MDM Narrative Medical decision making narrative: And review of the medical records from her emergency visit earlier today shows that she had a negative chest x-ray a nonischemic EKG and 2- troponins. Here in the emergency department she had a nonischemic EKG. Negative troponin. She had a reoccurrence of chest pain while in the emergency department and a repeat EKG is nonischemic. She was in AFib but has a history of AFib and she was anticoagulated. She was rate controlled. Low suspicion for meningitis. Over the past couple days she has had a head CT which was unremarkable. Patient was given initial dose of medications here in the ER and she states that it did not help her symptoms. Informed her that she would be given 1 dose of opioid pain medication. Patient reported complete resolution of symptoms after 1 dose of pain medication. She was positive for COVID which I suspect is causing quite a bit of her presenting symptoms today in the symptoms that she was over past couple days. Advised that she continue to take all of her home medicine. She was she expressed understanding and agreement. Discharge Plan Departure Patient Disposition: Home Clinical Impression: Migraine, Atypical chest pain, COVID-19 Instructions: DI for COVID-19 (Suspected or Confirmed ) Activity Restrictions/Additional Instructions: Continue to take all of your medications as directed. Contact your primary care provider for a follow-up. I suspect that your headache will improve once your COVID symptoms have resolved. Prescriptions: No Action aspirin 81 mg Tablet,Chewable 81 mg PO QAM ondansetron 4 mg tablet,disintegrating 4 mg PO Q8H PRN (Reason: nausea and vomiting) Qty: 10 0RF furosemide 20 mg Tablet 10 mg PO QAM [id number]-rekhbwdmprmwq-fbrb [Fioricet] 50-300-40 mg capsule 1 cap PO Q6H PRN (Reason: pain) Qty: 10 0RF ondansetron 4 mg tablet,disintegrating 4 mg PO Q6-8H PRN (Reason: nausea and vomiting) Qty: 10 0RF rizatriptan [Maxalt] 10 mg tablet 10 mg PO Q2-4H PRN (Reason: migraine headache) Qty: 10 0RF Rx Instructions: do not exceed 3 doses per 24 hrs furosemide [Lasix] 20 mg tablet 20 mg PO DAILY Qty: 3 0RF ondansetron 4 mg tablet,disintegrating 4 mg PO Q8H PRN (Reason: nausea and vomiting) Qty: 10 0RF cyclobenzaprine 10 mg tablet 10 mg PO TID PRN (Reason: muscle spasm) Qty: 14 0RF hydrocodone-acetaminophen 5-325 mg tablet 1 tab PO Q4-6H PRN (Reason: pain) Qty: 10 0RF multivitamin Tablet 1 tab PO DAILY Qty: 0 atenolol 25 mg Tablet 25 mg PO DAILY levothyroxine [Synthroid] 150 mcg Tablet 150 mcg PO DAILY ezetimibe 10 mg Tablet 10 mg PO DAILY omega-3 fatty acids-vitamin E 1,000 mg Capsule 1 cap PO DAILY tramadol 50 mg tablet 50 mg PO Q8H PRN (Reason: pain) Qty: 14 0RF prednisone 20 mg tablet 40 mg PO DAILY Qty: 10 0RF rimegepant 75 mg tablet,disintegrating 75 mg PO Q OTHER DAY PRN (Reason: migraine headache) Qty: 10 0RF nortriptyline 10 mg capsule 10 mg PO BEDTIME Qty: 30 0RF metoclopramide HCl [Reglan] 10 mg tablet 10 mg PO Q6H PRN (Reason: nausea and vomiting) Qty: 14 0RF lorazepam [Ativan] 0.5 mg tablet 0.5 mg PO BID PRN (Reason: nausea and vomiting) Qty: 10 0RF hydrocodone-acetaminophen 5-325 mg tablet 1 tab PO Q4-6H PRN (Reason: pain) Qty: 10 0RF ketorolac 10 mg tablet 10 mg PO Q6H PRN (Reason: pain) Qty: 14 0RF lidocaine [Lidoderm] 5 % adhesive patch,medicated 1 patch TOP DAILY Qty: 15 0RF Rx Instructions: leave on most painful area for 12 hrs diazepam [Valium] 5 mg tablet 5 mg PO BID-QID PRN (Reason: muscle spasm) Qty: 10 0RF isosorbide mononitrate 30 mg tablet extended release 24 hr 30 mg PO DAILY Qty: 30 0RF hydrocodone-acetaminophen 5-325 mg tablet 1 tab PO Q4-6H PRN (Reason: pain) Qty: 10 0RF methylprednisolone [Medrol (Jabier)] 4 mg tablets,dose pack See Rx Instructions .ROUTE .COMPLEX Qty: 21 0RF Rx Instructions: orally per package directions diazepam [Valium] 5 mg tablet 5 mg PO BID-QID PRN (Reason: muscle spasm) Qty: 10 0RF hydrocodone-acetaminophen 5-325 mg tablet 1 tab PO QID PRN (Reason: pain) Qty: 10 0RF morphine 15 mg tablet 15 mg PO Q6H PRN (Reason: pain) Qty: 10 0RF naloxone [Narcan] 4 mg/actuation spray,non-aerosol 4 mg intranasal Q2M Qty: 2 0RF Rx Instructions: spray 1 dose into ONE nostril; alternate nostrils w each dose until help arrives metoclopramide HCl [Reglan] 10 mg tablet 10 mg PO Q6H PRN (Reason: nausea and vomiting) Qty: 14 0RF morphine 15 mg tablet 15 mg PO Q6H PRN (Reason: pain) Qty: 15 0RF pukxsftmto-skugqdbkqqqxb-fdre [Fioricet] 50-300-40 mg capsule 1 cap PO Q4-6H PRN (Reason: pain) Qty: 14 0RF isosorbide mononitrate 60 mg tablet extended release 24 hr 60 mg PO QAM Qty: 30 0RF methylprednisolone [Medrol (Jabier)] 4 mg tablets,dose pack See Rx Instructions .ROUTE .COMPLEX Qty: 21 0RF Rx Instructions: for 6 days hydrocodone-acetaminophen 5-325 mg tablet 1 tab PO Q8H PRN (Reason: pain) Qty: 14 0RF hydrocodone-acetaminophen 5-325 mg tablet 1 tab PO QID PRN (Reason: pain) Qty: 10 0RF cyclobenzaprine 10 mg tablet 10 mg PO TID PRN (Reason: muscle spasm) Qty: 10 0RF potassium chloride 10 mEq capsule, extended release 20 meq PO DAILY cholecalciferol (vitamin D3) 50 mcg (2,000 unit) capsule 50 mcg PO DAILY Eliquis 5 mg tablet 5 mg PO BID Referrals: Yuli Lang PA-C [Primary Care Provider] - Stand Alone Forms: Patient Portal/API
[2024-06-11 17:00] LABS: Add Manual Diff / Slide Review NO; Basophils Absolute Auto 100 /uL (0-100); Basophils Percent Auto 0.5 % (0-2); Eosinophils Absolute Auto 0 /uL (0-450); Hematocrit 46.6 % (36-46); Hemoglobin 15.6 g/dL (12.0-16.0); Lymphocytes Absolute Auto 1700 /uL (1100-4500); Lymphocytes Percent Auto 9.7 % (25-40); Mean Corpuscular HGB Conc 33.5 % (30-36); Mean Corpuscular Hemoglobin 30.8 PG (26-34); Monocytes Absolute Auto 800 /uL (0-900); Monocytes Percent Auto 4.6 % (3-14); Neutrophils Absolute Auto 14900 /uL (1500-7000); Neutrophils Percent Auto 85.2 % (50-75); Platelet Count 237 X10^3/uL (150-400); Red Blood Cell Count 5.06 X10^6/uL (4.0-5.2); Red Cell Distribution Width 14.8 % (11.6-14.8); White Blood Cell Count 17.5 X10^3/uL (4.5-11.0)
[2024-06-11] MEDS: HALOPERIDOL 5 MG/ML VIAL 2.5 MG IV (17:10)
[2024-06-11] MEDS: ACETAMINOPHEN IV 1,000 MG/100 ML VIAL 400 MG IV (17:10)
[2024-06-11] MEDS: SODIUM CHLORIDE 0.9% 1,000 ML 1000 ML IV (17:11)
[2024-06-11 17:16] LABS: Alanine Aminotransferase 26 IU/L (<35); Albumin 3.9 g/dL (3.5-5.0); Albumin Globulin Ratio 1.4 (1.0-2.8); Alkaline Phosphatase 91 U/L (38-126); Aspartate Aminotransferase 31 IU/L (14-36); BUN Creatinine Ratio 27.4 (6-22); Bilirubin Total 0.6 mg/dL (0.2-1.3); Blood Urea Nitrogen 29 mg/dL (7-17); Calcium 9.1 mg/dL (8.4-10.2); Carbon Dioxide 19 mmol/L (22-32); Chloride 109 mmol/L (98-107); Creatine Kinase 217 U/L (30-135); Estimated Glomerular Filt Rate 55 mL/min (>60); Globulin 2.8 g/dL (1.7-4.1); Glucose 146 mg/dL (80-110); HEMOLYSIS 25 (0-50); Lipase 66 U/L (23-300); Sodium 137 mmol/L (137-145); Total Protein 6.7 g/dL (6.3-8.2)
--- NOTE | 2024-06-11 17:20 | EKG_ITS ---
[address] [address] Test Date: 2024-06-11 Pat Name: Jackie Javed Department: [facility] Room: Gender: Female Vending Manager: HERBERT : 1950 Requested By: Order Number: [id number] Reading MD: Bennie Damian Measurements Intervals [place] Rate: 80 P: IA: QRS: -2 QRSD: 70 T: 0 QT: 364 QTc: 419 Interpretive Statements Undetermined rhythm Low voltage QRS Electronically Signed On 06-12-2024 9:21:10 PDT by Bennie Damian
[2024-06-11 17:27] LABS: Troponin I < 0.012 ng/mL (0.01-0.034)
--- NOTE | 2024-06-11 17:33 | PC.NURSE ---
Around 1520 pt developed another episode of left sided 5/10 chest pain lasting about 10 minutes. Pain currently 2/[address] Osuna aware, EKG ordered and obtained. VSS
--- NOTE | 2024-06-11 17:49 | PC.NURSE ---
Pt wants to leave AMA, States she has been in the hospital long enough today. RN explained this would be against medical advice.
[2024-06-11] MEDS: HYDROMORPHONE 1 MG INJ IV (18:10)
[2024-06-11 18:16] LABS: Influenza A - CEPHEID Flu A NEGATIVE (NEGATIVE); Influenza B - CEPHEID Flu B NEGATIVE (NEGATIVE); Respiratory Syncytial Virus Negative (Negative)
[2024-06-11 18:25] LABS: COVID-19 CEPHEID 4-PLEX PCR POSITIVE (Negative)
== END 2024-06-11 18:37 | disposition home or self-care (01) ==
PROVIDERS: Emergency Provider Emergency Medicine; PCP Physician Assistant
DX: U07.1 COVID-19 (principal); R07.89 Other chest pain; G43.909 Migraine, unspecified, not intractable, without status migrainosus; Z79.01 Long term (current) use of anticoagulants; Z79.899 Other long term (current) drug therapy
CPT/HCPCS: 0241U; 36415; 80053; 82550; 83690; 84484; 85025; 93005; 96365; 96375; 99284; J0134; J1170; J1630

== ENCOUNTER 2024-06-12 14:05 | Emergency (ER) | payer MEDICARE, OTHER, SELFPAY ==
[2021-06-25 17:33] VITALS: BMI 28.1
[2024-06-12 14:12] VITALS: BP 141/76; PULSE 88; RESP 16; TEMP 37.1; O2SAT 97; BMI 27.3
[2024-06-12] MEDS: ONDANSETRON 4 MG ODT SL (16:44)
--- NOTE | 2024-06-12 16:56 | ED_ITS ---
HPI - URI/Sore Throat <Real Roa PA-C - Last Filed: 06/12/24 17:01> General Chief Complaint: Upper Respiratory Symptoms Stated Complaint: COVID symptoms Time Seen by Provider: 06/12/24 15:26 Source: patient Mode of arrival: Family Vehicle History of Present Illness HPI Narrative: 73-year-old female with past medical history hypothyroidism, atrial fibrillation presents to the ED with nausea and cough secondary to a COVID-19 infection. Patient was diagnosed with a COVID-19 infection 3 or 4 days back. Patient was seen in the ED yesterday, a complete cardiac workup was performed and patient was discharged home with no acute findings other than the COVID-19 infection. Today the patient returns due to nausea and cough. Denies fever, chills, chest pain, shortness of breath, vomiting, abdominal pain, diarrhea. Related Data Home Medications Medication Instructions Recorded Confirmed aspirin 81 mg chewable tablet 81 mg PO QAM 07/26/20 12/23/21 atenolol 25 mg tablet 25 mg PO DAILY 06/25/21 12/23/21 ezetimibe 10 mg tablet 10 mg PO DAILY 06/25/21 12/23/21 levothyroxine 150 mcg tablet 150 mcg PO DAILY 06/25/21 12/23/21 (Synthroid) multivitamin 1 tab PO DAILY ##0 06/25/21 12/23/21 omega-3 fatty acids-vitamin E 1 cap PO DAILY 06/25/21 12/23/21 1,000 mg capsule furosemide 20 mg tablet 10 mg PO QAM 07/09/21 12/23/21 apixaban 5 mg tablet (Eliquis) 5 mg PO BID 07/22/21 12/23/21 cholecalciferol (vitamin D3) 50 50 mcg PO DAILY 07/22/21 12/23/21 mcg (2,000 unit) capsule potassium chloride 10 mEq 20 meq PO DAILY 07/22/21 12/23/21 capsule,extended release Previous Rx's Medication Instructions Recorded ondansetron 4 mg disintegrating 4 mg PO Q8H PRN nausea and 06/24/21 tablet vomiting #10 tabs tramadol 50 mg tablet 50 mg PO Q8H PRN pain #14 tabs 02/28/22 nkdajvrcec-ypjqevfxinxxi-aqmvtggd 1 cap PO Q6H PRN pain #10 caps 05/30/22 50 mg-300 mg-40 mg capsule (Fioricet) ondansetron 4 mg disintegrating 4 mg PO Q6-8H PRN nausea and 06/15/22 tablet vomiting #10 tabs rizatriptan 10 mg tablet (Maxalt) 10 mg PO Q2-4H PRN migraine 06/16/22 headache #10 tabs nortriptyline 10 mg capsule 10 mg PO BEDTIME #30 caps 06/17/22 prednisone 20 mg tablet 40 mg (2 x 20 mg) PO DAILY #10 tabs 06/17/22 rimegepant 75 mg disintegrating 75 mg PO Q OTHER DAY PRN migraine 06/17/22 tablet headache #10 tabs metoclopramide HCl 10 mg tablet 10 mg PO Q6H PRN nausea and 06/18/22 (Reglan) vomiting #14 tabs lorazepam 0.5 mg tablet (Ativan) 0.5 mg PO BID PRN nausea and 06/19/22 vomiting #10 tabs diazepam 5 mg tablet (Valium) 5 mg PO BID-QID PRN muscle spasm 08/08/22 #10 tabs hydrocodone 5 mg-acetaminophen 325 1 tab PO Q4-6H PRN pain #10 tabs 08/08/22 mg tablet ketorolac 10 mg tablet 10 mg PO Q6H PRN pain #14 tabs 08/08/22 lidocaine 5 % topical patch 1 patch topical DAILY #15 ea 08/08/22 (Lidoderm) furosemide 20 mg tablet (Lasix) 20 mg PO DAILY #3 tabs 01/23/23 isosorbide mononitrate 30 mg 30 mg PO DAILY #30 tabs 01/24/23 tablet,extended release 24 hr diazepam 5 mg tablet (Valium) 5 mg PO BID-QID PRN muscle spasm 03/12/23 #10 tabs hydrocodone 5 mg-acetaminophen 325 1 tab PO Q4-6H PRN pain #10 tabs 03/12/23 mg tablet methylprednisolone 4 mg tablets in See Rx Instructions PO .COMPLEX 03/12/23 a dose pack (Medrol (Jabier)) #21 ea hydrocodone 5 mg-acetaminophen 325 1 tab PO QID PRN pain #10 tabs 09/11/23 mg tablet ondansetron 4 mg disintegrating 4 mg PO Q8H PRN nausea and 09/17/23 tablet vomiting #10 tabs metoclopramide HCl 10 mg tablet 10 mg PO Q6H PRN nausea and 09/19/23 (Reglan) vomiting #14 tabs morphine 15 mg immediate release 15 mg PO Q6H PRN pain #10 tabs 09/19/23 tablet morphine 15 mg immediate release 15 mg PO Q6H PRN pain #15 tabs 09/19/23 tablet naloxone 4 mg/actuation nasal 4 mg intranasal Q2M #2 ea 09/19/23 spray (Narcan) asmlfhfxup-jyjbvzxyxzqhx-zosustcv 1 cap PO Q4-6H PRN pain #14 caps 10/10/23 50 mg-300 mg-40 mg capsule (Fioricet) isosorbide mononitrate 60 mg 60 mg PO QAM #30 tabs 01/02/24 tablet,extended release 24 hr methylprednisolone 4 mg tablets in See Rx Instructions PO .COMPLEX 03/17/24 a dose pack (Medrol (Jabier)) #21 ea hydrocodone 5 mg-acetaminophen 325 1 tab PO Q8H PRN pain #14 tabs 03/18/24 mg tablet cyclobenzaprine 10 mg tablet 10 mg PO TID PRN muscle spasm #14 04/09/24 tabs hydrocodone 5 mg-acetaminophen 325 1 tab PO Q4-6H PRN pain #10 tabs 04/09/24 mg tablet cyclobenzaprine 10 mg tablet 10 mg PO TID PRN muscle spasm #10 05/05/24 tabs hydrocodone 5 mg-acetaminophen 325 1 tab PO QID PRN pain #10 tabs 05/05/24 mg tablet benzonatate 200 mg capsule 200 mg PO TID PRN cough #30 caps 06/12/24 ondansetron 4 mg disintegrating 4 mg PO Q8H PRN nausea and 06/12/24 tablet vomiting #14 tabs Allergies Allergy/AdvReac Type Severity Reaction Status Date / Time lisinopril Allergy Severe Anaphylaxis Verified 04/09/24 10:04 metformin AdvReac Vomiting Verified 04/09/24 10:04 Review of Systems <Real Roa PA-C - Last Filed: 06/12/24 17:01> Constitutional Constitutional: Reports body ache(s), Denies chills, Denies fatigue, Denies fever(s), Denies frequent falls, Reports lethargy and Denies weakness Eyes Eyes: Denies change in vision, Denies eye discharge, Denies irritation and Denies loss of vision ENT Ears, Nose, Mouth, and Throat: Denies change in voice, Denies dizziness, Denies neck pain, Denies sore throat and Denies throat swelling Cardiovascular Cardiovascular: Denies chest pain, Denies irregular heart rhythm, Denies lightheadedness, Denies palpitations, Denies dyspnea, Denies dyspnea on exertion and Denies orthopnea Respiratory Respiratory: Reports cough, Denies dyspnea, Denies dyspnea on exertion and Denies wheezing Gastrointestinal Gastrointestinal: Denies abdominal pain, Denies change in bowel habits, Denies diarrhea, Reports nausea and Denies vomiting Musculoskeletal Musculoskeletal: Denies neck pain and Denies numbness Integumentary/Breasts Skin/Breast: Denies pruritus, Denies erythema, Denies rash and Denies wounds Neurologic Neurologic: Denies behavioral changes, Denies confusion, Denies dizziness, Denies frequent falls, Denies loss of vision, Denies numbness and Denies weakness Psychiatric Psychiatric: Denies anxiety, Denies behavioral changes, Denies confusion, Denies depression, Denies homicidal ideation and Denies suicidal ideation Endocrine Endocrine: Denies fatigue, Denies flushing and Denies palpitations Hematologic/Lymphatic Hematologic/Lymphatic: Denies easy bruising Allergic/Immunologic Allergic/Immunologic: Denies urticaria, Denies throat swelling and Denies wheezing Patient History <Real Roa PA-C - Last Filed: 06/12/24 17:01> Medical History UTI (urinary tract infection) Facet arthropathy, lumbar Atrial fibrillation Lumbar radiculopathy Tinnitus Nose fracture (~06/29/21) HLD (hyperlipidemia) Heart murmur Chronic pancreatitis Depression Chronic back pain Breast cancer Migraine headache Hypothyroidism Hypertension Surgical History Hx of tonsillectomy History of colonoscopy Hx of oophorectomy History of hysterectomy Hx of breast surgery Hx of cholecystectomy Family History Father Brain tumor Congestive heart failure Mother Hypertension Stroke Grandfather Stroke Social History household members: spouse Smoking Status: Former smoker alcohol intake: current Smoking Status: Former smoker tobacco type: cigarettes alcohol intake frequency: a few times a month Alcohol type: wine Substance Use Type: does not use Exam <Real Roa PA-C - Last Filed: 06/12/24 17:01> Narrative Exam Narrative: Const General:?cooperative, healthy appearing and comfortable [facility] Head:?normal to inspection Ears:?hearing grossly normal bilaterally Nose:?external nose normal Face and sinus:?normal facial exam and sinuses nontender Mouth:?oral mucosae normal Throat:?posterior oropharynx normal Eyes General:?appearance normal, both eyes and all related structures Neck Neck:?normal visual inspection and no lymphadenopathy noted Resp Effort & Inspection:?normal respiratory effort Auscultation:?clear to auscultation bilaterally Cardio Rate:?regular rate Rhythm:?regular rhythm Neuro General:?patient alert, patient awake and patient oriented x3 Initial Vital Signs Initial Vital Signs: Vital Signs Temperature 98.8 F 06/12/24 14:12 Pulse Rate 88 06/12/24 14:12 Respiratory Rate 16 06/12/24 14:12 Blood Pressure 141/76 H 06/12/24 14:12 Pulse Oximetry 97 06/12/24 14:12 Oxygen Delivery Method Room Air 06/12/24 14:12 <DO Tyshawn Tamayo Last Filed: 06/12/24 17:09> Initial Vital Signs Initial Vital Signs: Vital Signs Temperature 98.8 F 06/12/24 14:12 Pulse Rate 88 06/12/24 14:12 Respiratory Rate 16 06/12/24 14:12 Blood Pressure 141/76 H 06/12/24 14:12 Pulse Oximetry 97 06/12/24 14:12 Oxygen Delivery Method Room Air 06/12/24 14:12 Course <Real Roa PA-C - Last Filed: 06/12/24 17:01> Orders Ordered: Discontinued Medications Ondansetron HCl (Ondansetron 4 Mg Odt) 4 mg SL NOW ONE Stop: 06/12/24 16:04 Last Admin: 06/12/24 16:44 Dose: 4 mg Documented By: HERBERT Vital Signs Vital signs: Vital Signs - 8 hr 06/12/24 14:12 Temperature 98.8 F Pulse Rate 88 Respiratory Rate 16 Blood Pressure 141/76 H Pulse Oximetry 97 Oxygen Delivery Method Room Air <Mustapha Osuna DO - Last Filed: 06/12/24 17:09> Orders Ordered: Discontinued Medications Ondansetron HCl (Ondansetron 4 Mg Odt) 4 mg SL NOW ONE Stop: 06/12/24 16:04 Last Admin: 06/12/24 16:44 Dose: 4 mg Documented By: HERBERT Vital Signs Vital signs: Vital Signs - 8 hr 06/12/24 14:12 Temperature 98.8 F Pulse Rate 88 Respiratory Rate 16 Blood Pressure 141/76 H Pulse Oximetry 97 Oxygen Delivery Method Room Air MDM - URI/Sore Throat <Real Roa PA-C - Last Filed: 06/12/24 17:01> [facility] Narrative Medical decision making narrative: 73-year-old female with past medical history hypothyroidism, atrial fibrillation presents to the ED with nausea and cough secondary to a COVID-19 infection. Patient was given a dose of Zofran with good relief. Will prescribe Zofran for continued use at home. Will prescribe Tessalon Perles for cough. Symptomatic treatments discussed with patient. Recommend good hydration. Recommend follow- up with PCP. ED return precautions discussed patient. Patient verbalized understanding. Medical records reviewed: Yes Discharge Plan Departure Patient Disposition: Home Clinical Impression: COVID-19 Instructions: DI for COVID-19 (Suspected or Confirmed ) Activity Restrictions/Additional Instructions: You were evaluated in the ED today for nausea and cough due to a COVID-19 infection. Your symptoms improved with a dose of Zofran. You are being prescribed Zofran for continued use at home as needed. You were also being prescribed Tessalon Perles for your cough. You may continue to take Tylenol, ibuprofen for aches and pains. Please stay well hydrated. Please follow-up with your PCP as soon as possible. Return to the ED if you have worsening symptoms, chest pain, shortness of breath. Prescriptions: New ondansetron 4 mg tablet,disintegrating 4 mg PO Q8H PRN (Reason: nausea and vomiting) Qty: 14 0RF benzonatate 200 mg capsule 200 mg PO TID PRN (Reason: cough) Qty: 30 0RF No Action aspirin 81 mg Tablet,Chewable 81 mg PO QAM ondansetron 4 mg tablet,disintegrating 4 mg PO Q8H PRN (Reason: nausea and vomiting) Qty: 10 0RF furosemide 20 mg Tablet 10 mg PO QAM djnslbkxip-vixsjnuqnjunz-casn [Fioricet] 50-300-40 mg capsule 1 cap PO Q6H PRN (Reason: pain) Qty: 10 0RF ondansetron 4 mg tablet,disintegrating 4 mg PO Q6-8H PRN (Reason: nausea and vomiting) Qty: 10 0RF rizatriptan [Maxalt] 10 mg tablet 10 mg PO Q2-4H PRN (Reason: migraine headache) Qty: 10 0RF Rx Instructions: do not exceed 3 doses per 24 hrs furosemide [Lasix] 20 mg tablet 20 mg PO DAILY Qty: 3 0RF ondansetron 4 mg tablet,disintegrating 4 mg PO Q8H PRN (Reason: nausea and vomiting) Qty: 10 0RF cyclobenzaprine 10 mg tablet 10 mg PO TID PRN (Reason: muscle spasm) Qty: 14 0RF hydrocodone-acetaminophen 5-325 mg tablet 1 tab PO Q4-6H PRN (Reason: pain) Qty: 10 0RF multivitamin Tablet 1 tab PO DAILY Qty: 0 atenolol 25 mg Tablet 25 mg PO DAILY levothyroxine [Synthroid] 150 mcg Tablet 150 mcg PO DAILY ezetimibe 10 mg Tablet 10 mg PO DAILY omega-3 fatty acids-vitamin E 1,000 mg Capsule 1 cap PO DAILY tramadol 50 mg tablet 50 mg PO Q8H PRN (Reason: pain) Qty: 14 0RF prednisone 20 mg tablet 40 mg PO DAILY Qty: 10 0RF rimegepant 75 mg tablet,disintegrating 75 mg PO Q OTHER DAY PRN (Reason: migraine headache) Qty: 10 0RF nortriptyline 10 mg capsule 10 mg PO BEDTIME Qty: 30 0RF metoclopramide HCl [Reglan] 10 mg tablet 10 mg PO Q6H PRN (Reason: nausea and vomiting) Qty: 14 0RF lorazepam [Ativan] 0.5 mg tablet 0.5 mg PO BID PRN (Reason: nausea and vomiting) Qty: 10 0RF hydrocodone-acetaminophen 5-325 mg tablet 1 tab PO Q4-6H PRN (Reason: pain) Qty: 10 0RF ketorolac 10 mg tablet 10 mg PO Q6H PRN (Reason: pain) Qty: 14 0RF lidocaine [Lidoderm] 5 % adhesive patch,medicated 1 patch TOP DAILY Qty: 15 0RF Rx Instructions: leave on most painful area for 12 hrs diazepam [Valium] 5 mg tablet 5 mg PO BID-QID PRN (Reason: muscle spasm) Qty: 10 0RF isosorbide mononitrate 30 mg tablet extended release 24 hr 30 mg PO DAILY Qty: 30 0RF hydrocodone-acetaminophen 5-325 mg tablet 1 tab PO Q4-6H PRN (Reason: pain) Qty: 10 0RF methylprednisolone [Medrol (Jabier)] 4 mg tablets,dose pack See Rx Instructions .ROUTE .COMPLEX Qty: 21 0RF Rx Instructions: orally per package directions diazepam [Valium] 5 mg tablet 5 mg PO BID-QID PRN (Reason: muscle spasm) Qty: 10 0RF hydrocodone-acetaminophen 5-325 mg tablet 1 tab PO QID PRN (Reason: pain) Qty: 10 0RF morphine 15 mg tablet 15 mg PO Q6H PRN (Reason: pain) Qty: 10 0RF naloxone [Narcan] 4 mg/actuation spray,non-aerosol 4 mg intranasal Q2M Qty: 2 0RF Rx Instructions: spray 1 dose into ONE nostril; alternate nostrils w each dose until help arrives metoclopramide HCl [Reglan] 10 mg tablet 10 mg PO Q6H PRN (Reason: nausea and vomiting) Qty: 14 0RF morphine 15 mg tablet 15 mg PO Q6H PRN (Reason: pain) Qty: 15 0RF cgvvglqiot-ouidmodnsvdly-hjsn [Fioricet] 50-300-40 mg capsule 1 cap PO Q4-6H PRN (Reason: pain) Qty: 14 0RF isosorbide mononitrate 60 mg tablet extended release 24 hr 60 mg PO QAM Qty: 30 0RF methylprednisolone [Medrol (Jabier)] 4 mg tablets,dose pack See Rx Instructions .ROUTE .COMPLEX Qty: 21 0RF Rx Instructions: for 6 days hydrocodone-acetaminophen 5-325 mg tablet 1 tab PO Q8H PRN (Reason: pain) Qty: 14 0RF hydrocodone-acetaminophen 5-325 mg tablet 1 tab PO QID PRN (Reason: pain) Qty: 10 0RF cyclobenzaprine 10 mg tablet 10 mg PO TID PRN (Reason: muscle spasm) Qty: 10 0RF potassium chloride 10 mEq capsule, extended release 20 meq PO DAILY cholecalciferol (vitamin D3) 50 mcg (2,000 unit) capsule 50 mcg PO DAILY Eliquis 5 mg tablet 5 mg PO BID Referrals: Yuli Lang PA-C [Primary Care Provider] - Stand Alone Forms: Patient Portal/API ED Sign-out <Mustapha Osuna DO - Last Filed: 06/12/24 17:09> Cosign ED Attending Cosignature Attestation: Dr Ousna Co-Sign Statement: I was available for consultation during this patient's emergency department visit. This chart is signed by myself for administrative purposes only. I did not have direct contact with this patient during this visit. They were seen independently by the APC.
== END 2024-06-12 17:02 | disposition home or self-care (01) ==
PROVIDERS: Emergency Provider Student in an Organized Health Care Education/Training Program; PCP Physician Assistant
DX: U07.1 COVID-19 (principal)
CPT/HCPCS: 99283

== ENCOUNTER 2024-06-25 13:21 | Emergency (ER) | payer MEDICARE, OTHER, SELFPAY ==
[2021-06-25 17:33] VITALS: BMI 28.1
[2024-06-25 13:56] VITALS: BP 147/80; PULSE 63; RESP 16; TEMP 36.8; O2SAT 98; BMI 27.3
[2024-06-25 15:16] LABS: Urine Volume 10mL (spun)
[2024-06-25 15:17] LABS: Bacteria Urine Moderate (10-30); Culture Indicated Urine Cult Not Indicated; RBC Urine None Seen (0-5/HPF); Squamous Epithelial Cell Urine 1-5 /HPF (0-5/HPF); WBC Urine 1-5/HPF (0-5/HPF)
--- NOTE | 2024-06-25 17:59 | ED.BACK ---
HPI - Back Pain/Injury <Real Roa PA-C - Last Filed: 06/25/24 18:05> General Chief Complaint: Back Pain/Injury Stated Complaint: back pain Time Seen by Provider: 06/25/24 13:45 Source: patient History of Present Illness HPI Narrative: 73-year-old female with past medical history chronic back pain with sciatica presents to the ED with an acute on chronic exacerbation of the lower back pain. Patient complains of back pain radiating down her bilateral legs, right greater than left. Patient states that she has some tramadol at home which does not provide adequate relief. Patient states she has been unable to get in touch with her PCP and therefore presents to the ED. according to patient, patient's ortho specialist Dr. Pugh is aware and has steroid injections scheduled for the 11 of July. Patient did have an MRI 2 weeks ago which shows worsening spinal stenosis in the lumbar region but no other acute emergencies. Patient denies urinary difficulties, urinary hesitancy, urinary incontinence, bowel incontinence, numbness, tingling, weakness. Related Data Home Medications Medication Instructions Recorded Confirmed aspirin 81 mg chewable tablet 81 mg PO QAM 07/26/20 12/23/21 atenolol 25 mg tablet 25 mg PO DAILY 06/25/21 12/23/21 ezetimibe 10 mg tablet 10 mg PO DAILY 06/25/21 12/23/21 levothyroxine 150 mcg tablet 150 mcg PO DAILY 06/25/21 12/23/21 (Synthroid) multivitamin 1 tab PO DAILY ##0 06/25/21 12/23/21 omega-3 fatty acids-vitamin E 1 cap PO DAILY 06/25/21 12/23/21 1,000 mg capsule furosemide 20 mg tablet 10 mg PO QAM 07/09/21 12/23/21 apixaban 5 mg tablet (Eliquis) 5 mg PO BID 07/22/21 12/23/21 cholecalciferol (vitamin D3) 50 50 mcg PO DAILY 07/22/21 12/23/21 mcg (2,000 unit) capsule potassium chloride 10 mEq 20 meq PO DAILY 07/22/21 12/23/21 capsule,extended release Previous Rx's Medication Instructions Recorded ondansetron 4 mg disintegrating 4 mg PO Q8H PRN nausea and 06/24/21 tablet vomiting #10 tabs tramadol 50 mg tablet 50 mg PO Q8H PRN pain #14 tabs 02/28/22 hvdljfqben-vtymbtkhuhjop-xmytdive 1 cap PO Q6H PRN pain #10 caps 05/30/22 50 mg-300 mg-40 mg capsule (Fioricet) ondansetron 4 mg disintegrating 4 mg PO Q6-8H PRN nausea and 06/15/22 tablet vomiting #10 tabs rizatriptan 10 mg tablet (Maxalt) 10 mg PO Q2-4H PRN migraine 06/16/22 headache #10 tabs nortriptyline 10 mg capsule 10 mg PO BEDTIME #30 caps 06/17/22 prednisone 20 mg tablet 40 mg (2 x 20 mg) PO DAILY #10 tabs 06/17/22 rimegepant 75 mg disintegrating 75 mg PO Q OTHER DAY PRN migraine 06/17/22 tablet headache #10 tabs metoclopramide HCl 10 mg tablet 10 mg PO Q6H PRN nausea and 06/18/22 (Reglan) vomiting #14 tabs lorazepam 0.5 mg tablet (Ativan) 0.5 mg PO BID PRN nausea and 06/19/22 vomiting #10 tabs diazepam 5 mg tablet (Valium) 5 mg PO BID-QID PRN muscle spasm 08/08/22 #10 tabs hydrocodone 5 mg-acetaminophen 325 1 tab PO Q4-6H PRN pain #10 tabs 08/08/22 mg tablet ketorolac 10 mg tablet 10 mg PO Q6H PRN pain #14 tabs 08/08/22 lidocaine 5 % topical patch 1 patch topical DAILY #15 ea 08/08/22 (Lidoderm) furosemide 20 mg tablet (Lasix) 20 mg PO DAILY #3 tabs 01/23/23 isosorbide mononitrate 30 mg 30 mg PO DAILY #30 tabs 01/24/23 tablet,extended release 24 hr diazepam 5 mg tablet (Valium) 5 mg PO BID-QID PRN muscle spasm 03/12/23 #10 tabs hydrocodone 5 mg-acetaminophen 325 1 tab PO Q4-6H PRN pain #10 tabs 03/12/23 mg tablet methylprednisolone 4 mg tablets in See Rx Instructions PO .COMPLEX 03/12/23 a dose pack (Medrol (Jabier)) #21 ea hydrocodone 5 mg-acetaminophen 325 1 tab PO QID PRN pain #10 tabs 09/11/23 mg tablet ondansetron 4 mg disintegrating 4 mg PO Q8H PRN nausea and 09/17/23 tablet vomiting #10 tabs metoclopramide HCl 10 mg tablet 10 mg PO Q6H PRN nausea and 09/19/23 (Reglan) vomiting #14 tabs morphine 15 mg immediate release 15 mg PO Q6H PRN pain #10 tabs 09/19/23 tablet morphine 15 mg immediate release 15 mg PO Q6H PRN pain #15 tabs 09/19/23 tablet naloxone 4 mg/actuation nasal 4 mg intranasal Q2M #2 ea 09/19/23 spray (Narcan) wcygjyuhqr-klnyfxbgqwvga-dceeehvf 1 cap PO Q4-6H PRN pain #14 caps 10/10/23 50 mg-300 mg-40 mg capsule (Fioricet) isosorbide mononitrate 60 mg 60 mg PO QAM #30 tabs 01/02/24 tablet,extended release 24 hr methylprednisolone 4 mg tablets in See Rx Instructions PO .COMPLEX 03/17/24 a dose pack (Medrol (Jabier)) #21 ea hydrocodone 5 mg-acetaminophen 325 1 tab PO Q8H PRN pain #14 tabs 03/18/24 mg tablet cyclobenzaprine 10 mg tablet 10 mg PO TID PRN muscle spasm #14 04/09/24 tabs hydrocodone 5 mg-acetaminophen 325 1 tab PO Q4-6H PRN pain #10 tabs 04/09/24 mg tablet cyclobenzaprine 10 mg tablet 10 mg PO TID PRN muscle spasm #10 05/05/24 tabs hydrocodone 5 mg-acetaminophen 325 1 tab PO QID PRN pain #10 tabs 05/05/24 mg tablet benzonatate 200 mg capsule 200 mg PO TID PRN cough #30 caps 06/12/24 ondansetron 4 mg disintegrating 4 mg PO Q8H PRN nausea and 06/12/24 tablet vomiting #14 tabs oxycodone-acetaminophen 5 mg-325 1 tab PO Q8H PRN pain #6 tabs 06/25/24 mg tablet (Percocet) Allergies Allergy/AdvReac Type Severity Reaction Status Date / Time lisinopril Allergy Severe Anaphylaxis Verified 04/09/24 10:04 metformin AdvReac Vomiting Verified 04/09/24 10:04 Review of Systems <Real Roa PA-C - Last Filed: 06/25/24 18:05> Constitutional Constitutional: Denies chills, Denies fatigue, Denies fever(s), Denies frequent falls, Denies lethargy and Denies weakness Eyes Eyes: Denies change in vision, Denies eye discharge, Denies irritation and Denies loss of vision ENT Ears, Nose, Mouth, and Throat: Denies change in voice, Denies dizziness, Denies neck pain, Denies sore throat and Denies throat swelling Cardiovascular Cardiovascular: Denies chest pain, Denies irregular heart rhythm, Denies lightheadedness, Denies palpitations, Denies dyspnea, Denies dyspnea on exertion and Denies orthopnea Respiratory Respiratory: Denies cough, Denies dyspnea, Denies dyspnea on exertion and Denies wheezing Gastrointestinal Gastrointestinal: Denies abdominal pain, Denies change in bowel habits, Denies diarrhea, Denies nausea and Denies vomiting Musculoskeletal Musculoskeletal: Reports back pain, Denies neck pain, Denies numbness and Reports radiating pain into limb Integumentary/Breasts Skin/Breast: Denies pruritus, Denies erythema, Denies rash and Denies wounds Neurologic Neurologic: Denies behavioral changes, Denies confusion, Denies dizziness, Denies frequent falls, Denies loss of vision, Denies numbness and Denies weakness Psychiatric Psychiatric: Denies anxiety, Denies behavioral changes, Denies confusion, Denies depression, Denies homicidal ideation and Denies suicidal ideation Endocrine Endocrine: Denies fatigue, Denies flushing and Denies palpitations Hematologic/Lymphatic Hematologic/Lymphatic: Denies easy bruising Allergic/Immunologic Allergic/Immunologic: Denies urticaria, Denies throat swelling and Denies wheezing Patient History <Real Roa PA-C - Last Filed: 06/25/24 18:05> Medical History UTI (urinary tract infection) Facet arthropathy, lumbar Atrial fibrillation Lumbar radiculopathy Tinnitus Nose fracture (~06/29/21) HLD (hyperlipidemia) Heart murmur Chronic pancreatitis Depression Chronic back pain Breast cancer Migraine headache Hypothyroidism Hypertension Surgical History Hx of tonsillectomy History of colonoscopy Hx of oophorectomy History of hysterectomy Hx of breast surgery Hx of cholecystectomy Family History Father Brain tumor Congestive heart failure Mother Hypertension Stroke Grandfather Stroke Social History household members: spouse Smoking Status: Former smoker alcohol intake: current Smoking Status: Former smoker tobacco type: cigarettes alcohol intake frequency: a few times a month Alcohol type: wine Substance Use Type: does not use Exam <Real Roa PA-C - Last Filed: 06/25/24 18:05> Narrative Exam Narrative: Const General:?cooperative, healthy appearing and comfortable HENMT Head:?normal to inspection Ears:?hearing grossly normal bilaterally Nose:?external nose normal Face and sinus:?normal facial exam and sinuses nontender Mouth:?oral mucosae normal Throat:?posterior oropharynx normal Eyes General:?appearance normal, both eyes and all related structures Neck Neck:?normal visual inspection and no lymphadenopathy noted Resp Effort & Inspection:?normal respiratory effort Auscultation:?clear to auscultation bilaterally Cardio Rate:?regular rate Rhythm:?regular rhythm Musculoskeletal No midline tenderness to palpation. No paraspinal tenderness to palpation. Gait is normal. Neurovascularly intact. Neuro General:?patient alert, patient awake and patient oriented x3 Initial Vital Signs Initial Vital Signs: Vital Signs Temperature 98.2 F 06/25/24 13:56 Pulse Rate 63 06/25/24 13:56 Respiratory Rate 16 06/25/24 13:56 Blood Pressure 147/80 H 06/25/24 13:56 Pulse Oximetry 98 06/25/24 13:56 Oxygen Delivery Method Room Air 06/25/24 13:56 <Antonio Hollins DO - Last Filed: 06/26/24 10:28> Initial Vital Signs Initial Vital Signs: Vital Signs Temperature 98.2 F 06/25/24 13:56 Pulse Rate 63 06/25/24 13:56 Respiratory Rate 16 06/25/24 13:56 Blood Pressure 147/80 H 06/25/24 13:56 Pulse Oximetry 98 06/25/24 13:56 Oxygen Delivery Method Room Air 06/25/24 13:56 Course <Real Roa PA-C - Last Filed: 06/25/24 18:05> Orders Ordered: ED Orders 06/25/24 14:21 Urine Microscopic Stat Vital Signs Vital signs: Vital Signs - 8 hr 06/25/24 13:56 Temperature 98.2 F Pulse Rate 63 Respiratory Rate 16 Blood Pressure 147/80 H Pulse Oximetry 98 Oxygen Delivery Method Room Air <Antonio Hollins DO - Last Filed: 06/26/24 10:28> Orders Ordered: ED Orders 06/25/24 14:21 Urine Microscopic Stat Vital Signs Vital signs: Vital Signs - 8 hr 06/25/24 13:56 Temperature 98.2 F Pulse Rate 63 Respiratory Rate 16 Blood Pressure 147/80 H Pulse Oximetry 98 Oxygen Delivery Method Room Air MDM - Back Pain/Injury <RAPHAEL Landaverde-C - Last Filed: 06/25/24 18:05> Lab Data Labs: Lab Results 06/25/24 Range/Units 14:21 Urine RBC None seen (0-5/HPF) Urine WBC 1-5/hpf (0-5/HPF) Ur Squamous Epith Cells 1-5 /hpf (0-5/HPF) Urine Bacteria Moderate (10-30) H (None) Ur Culture Indicated? Cult not indicated Vol Urine Centrifuged 10ml (spun) Urine Dip Bedside Urine Glucose 500 mg/dl Bedside Urine Bilirubin - Negative Bedside Urine Ketone - Negative Urine Specific [place] 1.015 Bedside Urine Occult Blood +/- Bedside Urine pH 6.0 Bedside Urine Protein - Negative Bedside Urine Urobilinogen - Negative Bedside Urine Nitrite - Negative Bedside Urine Leukocytes - Negative Esterase MDM Narrative Medical decision making narrative: 73-year-old female with past medical history chronic back pain with sciatica presents to the ED with an acute on chronic exacerbation of the lower back pain. Concern for UTI versus pyelonephritis versus acute on chronic exacerbation of sciatica versus other. Obtained UA which was negative for infection. Patient was given a short supply of Percocet, discussed with patient the need for possibly a pain contract and to contact her PCP for further pain management. Plane to patient that we are unable to give her pain medications on a longer-term basis from the ED. ED return precautions were discussed with patient. She verbalized understanding. Medical records reviewed: Yes <Antonio Hollins DO - Last Filed: 06/26/24 10:28> Lab Data Labs: Lab Results 06/25/24 Range/Units 14:21 Urine RBC None seen (0-5/HPF) Urine WBC 1-5/hpf (0-5/HPF) Ur Squamous Epith Cells 1-5 /hpf (0-5/HPF) Urine Bacteria Moderate (10-30) H (None) Ur Culture Indicated? Cult not indicated Vol Urine Centrifuged 10ml (spun) Urine Dip Bedside Urine Glucose 500 mg/dl Bedside Urine Bilirubin - Negative Bedside Urine Ketone - Negative Urine Specific [place] 1.015 Bedside Urine Occult Blood +/- Bedside Urine pH 6.0 Bedside Urine Protein - Negative Bedside Urine Urobilinogen - Negative Bedside Urine Nitrite - Negative Bedside Urine Leukocytes - Negative Esterase MDM Narrative Medical decision making narrative: 73-year-old female with past medical history chronic back pain with sciatica presents to the ED with an acute on chronic exacerbation of the lower back pain. Concern for UTI versus pyelonephritis versus acute on chronic exacerbation of sciatica versus other. Obtained UA which was negative for infection. Patient was given a short supply of Percocet, discussed with patient the need for possibly a pain contract and to contact her PCP for further pain management. Plane to patient that we are unable to give her pain medications on a longer-term basis from the ED. ED return precautions were discussed with patient. She verbalized understanding. Medical records reviewed: Yes Dr. Hollins: I was immediately available in the department for consultation. Documentation has been reviewed. I agree with assessment and plan. Discharge Plan Departure Patient Disposition: Home Clinical Impression: Back pain Qualifiers: Back pain location: low back pain Chronicity: chronic Back pain laterality: unspecified Sciatica presence: with sciatica Sciatica laterality: sciatica laterality unspecified Qualified Code(s): M54.40 - Lumbago with sciatica, unspecified side Instructions: DI for Back Pain With Sciatica Activity Restrictions/Additional Instructions: You were evaluated in the ED today for an exacerbation of your chronic lower back pain. Your urine did not show an infection. You are being prescribed some pain medication until you are able to contact your ortho surgeon Dr. Pugh or your primary care provider Yuli Maradiaga for further evaluation and pain medications. It is imperative for you to follow-up with your PCP for appropriate pain control since we are unable to provide long-term pain control from the emergency department. Return to the ED if you have worsening symptoms, numbness, tingling, weakness, urinary difficulties. Prescriptions: New oxycodone-acetaminophen [Percocet] 5-325 mg tablet 1 tab PO Q8H PRN (Reason: pain) Qty: 6 0RF No Action aspirin 81 mg Tablet,Chewable 81 mg PO QAM ondansetron 4 mg tablet,disintegrating 4 mg PO Q8H PRN (Reason: nausea and vomiting) Qty: 10 0RF furosemide 20 mg Tablet 10 mg PO QAM [id number]-lkvzmjplwvuin-xcah [Fioricet] 50-300-40 mg capsule 1 cap PO Q6H PRN (Reason: pain) Qty: 10 0RF ondansetron 4 mg tablet,disintegrating 4 mg PO Q6-8H PRN (Reason: nausea and vomiting) Qty: 10 0RF rizatriptan [Maxalt] 10 mg tablet 10 mg PO Q2-4H PRN (Reason: migraine headache) Qty: 10 0RF Rx Instructions: do not exceed 3 doses per 24 hrs furosemide [Lasix] 20 mg tablet 20 mg PO DAILY Qty: 3 0RF ondansetron 4 mg tablet,disintegrating 4 mg PO Q8H PRN (Reason: nausea and vomiting) Qty: 10 0RF cyclobenzaprine 10 mg tablet 10 mg PO TID PRN (Reason: muscle spasm) Qty: 14 0RF hydrocodone-acetaminophen 5-325 mg tablet 1 tab PO Q4-6H PRN (Reason: pain) Qty: 10 0RF multivitamin Tablet 1 tab PO DAILY Qty: 0 atenolol 25 mg Tablet 25 mg PO DAILY levothyroxine [Synthroid] 150 mcg Tablet 150 mcg PO DAILY ezetimibe 10 mg Tablet 10 mg PO DAILY omega-3 fatty acids-vitamin E 1,000 mg Capsule 1 cap PO DAILY tramadol 50 mg tablet 50 mg PO Q8H PRN (Reason: pain) Qty: 14 0RF prednisone 20 mg tablet 40 mg PO DAILY Qty: 10 0RF rimegepant 75 mg tablet,disintegrating 75 mg PO Q OTHER DAY PRN (Reason: migraine headache) Qty: 10 0RF nortriptyline 10 mg capsule 10 mg PO BEDTIME Qty: 30 0RF metoclopramide HCl [Reglan] 10 mg tablet 10 mg PO Q6H PRN (Reason: nausea and vomiting) Qty: 14 0RF lorazepam [Ativan] 0.5 mg tablet 0.5 mg PO BID PRN (Reason: nausea and vomiting) Qty: 10 0RF hydrocodone-acetaminophen 5-325 mg tablet 1 tab PO Q4-6H PRN (Reason: pain) Qty: 10 0RF ketorolac 10 mg tablet 10 mg PO Q6H PRN (Reason: pain) Qty: 14 0RF lidocaine [Lidoderm] 5 % adhesive patch,medicated 1 patch TOP DAILY Qty: 15 0RF Rx Instructions: leave on most painful area for 12 hrs diazepam [Valium] 5 mg tablet 5 mg PO BID-QID PRN (Reason: muscle spasm) Qty: 10 0RF isosorbide mononitrate 30 mg tablet extended release 24 hr 30 mg PO DAILY Qty: 30 0RF hydrocodone-acetaminophen 5-325 mg tablet 1 tab PO Q4-6H PRN (Reason: pain) Qty: 10 0RF methylprednisolone [Medrol (Jabier)] 4 mg tablets,dose pack See Rx Instructions .ROUTE .COMPLEX Qty: 21 0RF Rx Instructions: orally per package directions diazepam [Valium] 5 mg tablet 5 mg PO BID-QID PRN (Reason: muscle spasm) Qty: 10 0RF hydrocodone-acetaminophen 5-325 mg tablet 1 tab PO QID PRN (Reason: pain) Qty: 10 0RF morphine 15 mg tablet 15 mg PO Q6H PRN (Reason: pain) Qty: 10 0RF naloxone [Narcan] 4 mg/actuation spray,non-aerosol 4 mg intranasal Q2M Qty: 2 0RF Rx Instructions: spray 1 dose into ONE nostril; alternate nostrils w each dose until help arrives metoclopramide HCl [Reglan] 10 mg tablet 10 mg PO Q6H PRN (Reason: nausea and vomiting) Qty: 14 0RF morphine 15 mg tablet 15 mg PO Q6H PRN (Reason: pain) Qty: 15 0RF wpdzxpvliw-stoixdbqtmhtc-ovvt [Fioricet] 50-300-40 mg capsule 1 cap PO Q4-6H PRN (Reason: pain) Qty: 14 0RF isosorbide mononitrate 60 mg tablet extended release 24 hr 60 mg PO QAM Qty: 30 0RF methylprednisolone [Medrol (Jabier)] 4 mg tablets,dose pack See Rx Instructions .ROUTE .COMPLEX Qty: 21 0RF Rx Instructions: for 6 days hydrocodone-acetaminophen 5-325 mg tablet 1 tab PO Q8H PRN (Reason: pain) Qty: 14 0RF hydrocodone-acetaminophen 5-325 mg tablet 1 tab PO QID PRN (Reason: pain) Qty: 10 0RF cyclobenzaprine 10 mg tablet 10 mg PO TID PRN (Reason: muscle spasm) Qty: 10 0RF ondansetron 4 mg tablet,disintegrating 4 mg PO Q8H PRN (Reason: nausea and vomiting) Qty: 14 0RF benzonatate 200 mg capsule 200 mg PO TID PRN (Reason: cough) Qty: 30 0RF potassium chloride 10 mEq capsule, extended release 20 meq PO DAILY cholecalciferol (vitamin D3) 50 mcg (2,000 unit) capsule 50 mcg PO DAILY Eliquis 5 mg tablet 5 mg PO BID Referrals: Yuli Lang PA-C [Primary Care Provider] - Stand Alone Forms: Patient Portal/API
== END 2024-06-25 15:48 | disposition home or self-care (01) ==
PROVIDERS: Emergency Provider Student in an Organized Health Care Education/Training Program; PCP Physician Assistant
DX: M54.42 Lumbago with sciatica, left side (principal); M54.41 Lumbago with sciatica, right side
CPT/HCPCS: 81003; 81015; 99281; 99282

== ENCOUNTER 2024-07-07 12:09 | Emergency (ER) | payer MEDICARE, OTHER, SELFPAY ==
[2021-06-25 17:33] VITALS: BMI 28.1
[2024-07-07 12:12] VITALS: BP 150/75; PULSE 66; RESP 16; TEMP 36.4; O2SAT 99; BMI 27.3
--- NOTE | 2024-07-07 12:36 | EKG_ITS ---
[place] [id number] [place] [id number] Test Date: 2024-07-07 Pat Name: Jackie Javed Department: [facility] Room: Gender: Female Director Fraud: ACACIA : 1950 Requested By: Order Number: [id number] Reading MD: Juan Pablo Hobbs MD Measurements Intervals [place] Rate: 62 P: 62 LA: 178 QRS: -24 QRSD: 66 T: -12 QT: 396 QTc: 401 Interpretive Statements Sinus rhythm with premature atrial complexes Low voltage QRS Inferior infarct , age undetermined Electronically Signed On 07-08-2024 8:35:12 PDT by Juan Pablo Hobbs MD
[2024-07-07 12:39] LABS: Add Manual Diff / Slide Review NO; Basophils Absolute Auto 0 /uL (0-100); Basophils Percent Auto 0.5 % (0-2); Eosinophils Absolute Auto 100 /uL (0-450); Eosinophils Percent Auto 0.9 % (2-4); Hematocrit 47.3 % (36-46); Hemoglobin 15.9 g/dL (12.0-16.0); Lymphocytes Absolute Auto 1800 /uL (1100-4500); Lymphocytes Percent Auto 20.8 % (25-40); Mean Corpuscular HGB Conc 33.6 % (30-36); Mean Corpuscular Hemoglobin 31.2 PG (26-34); Monocytes Absolute Auto 800 /uL (0-900); Monocytes Percent Auto 9.5 % (3-14); Neutrophils Absolute Auto 5700 /uL (1500-7000); Neutrophils Percent Auto 68.3 % (50-75); Platelet Count 233 X10^3/uL (150-400); Red Blood Cell Count 5.08 X10^6/uL (4.0-5.2); Red Cell Distribution Width 14.8 % (11.6-14.8); White Blood Cell Count 8.4 X10^3/uL (4.5-11.0)
[2024-07-07 12:59] LABS: Alanine Aminotransferase 22 IU/L (<35); Albumin 4.4 g/dL (3.5-5.0); Albumin Globulin Ratio 1.6 (1.0-2.8); Alkaline Phosphatase 84 U/L (38-126); Aspartate Aminotransferase 30 IU/L (14-36); BUN Creatinine Ratio 17.2 (6-22); Bilirubin Total 0.7 mg/dL (0.2-1.3); Blood Urea Nitrogen 21 mg/dL (7-17); Carbon Dioxide 20 mmol/L (22-32); Chloride 106 mmol/L (98-107); Estimated Glomerular Filt Rate 46 mL/min (>60); Globulin 2.7 g/dL (1.7-4.1); Glucose 101 mg/dL (80-110); HEMOLYSIS < 15 (0-50); Lipase 55 U/L (23-300); Potassium 3.7 mmol/L (3.4-5.1); Sodium 136 mmol/L (137-145); Total Protein 7.1 g/dL (6.3-8.2)
--- NOTE | 2024-07-07 14:04 | ED_ITS ---
HPI - Abdominal Pain General Chief Complaint: Abdominal Pain Stated Complaint: Pain in right lower side Time Seen by Provider: 07/07/24 13:14 Source: patient Mode of arrival: Ambulatory History of Present Illness HPI narrative: Patient is a 73-year-old female history migraines chronic back pain presenting today with abdominal pain. She says that she has a history of a cholecystectomy however over the last 2-3 days she has had increasing right lower quadrant pain. She actually has a little bit of right flank pain as well. Pain is quite constant. The car ride over here hurt. She has not had fever. She took some Tylenol yesterday. No other symptoms. Related Data Home Medications Medication Instructions Recorded Confirmed aspirin 81 mg chewable tablet 81 mg PO QAM 07/26/20 12/23/21 atenolol 25 mg tablet 25 mg PO DAILY 06/25/21 12/23/21 ezetimibe 10 mg tablet 10 mg PO DAILY 06/25/21 12/23/21 levothyroxine 150 mcg tablet 150 mcg PO DAILY 06/25/21 12/23/21 (Synthroid) multivitamin 1 tab PO DAILY ##0 06/25/21 12/23/21 omega-3 fatty acids-vitamin E 1 cap PO DAILY 06/25/21 12/23/21 1,000 mg capsule furosemide 20 mg tablet 10 mg PO QAM 07/09/21 12/23/21 apixaban 5 mg tablet (Eliquis) 5 mg PO BID 07/22/21 12/23/21 cholecalciferol (vitamin D3) 50 50 mcg PO DAILY 07/22/21 12/23/21 mcg (2,000 unit) capsule potassium chloride 10 mEq 20 meq PO DAILY 07/22/21 12/23/21 capsule,extended release Previous Rx's Medication Instructions Recorded ondansetron 4 mg disintegrating 4 mg PO Q8H PRN nausea and 06/24/21 tablet vomiting #10 tabs tramadol 50 mg tablet 50 mg PO Q8H PRN pain #14 tabs 02/28/22 [id number]-[id number]-[id number] 1 cap PO Q6H PRN pain #10 caps 05/30/22 50 mg-300 mg-40 mg capsule (Fioricet) ondansetron 4 mg disintegrating 4 mg PO Q6-8H PRN nausea and 06/15/22 tablet vomiting #10 tabs rizatriptan 10 mg tablet (Maxalt) 10 mg PO Q2-4H PRN migraine 06/16/22 headache #10 tabs nortriptyline 10 mg capsule 10 mg PO BEDTIME #30 caps 06/17/22 prednisone 20 mg tablet 40 mg (2 x 20 mg) PO DAILY #10 tabs 06/17/22 rimegepant 75 mg disintegrating 75 mg PO Q OTHER DAY PRN migraine 06/17/22 tablet headache #10 tabs metoclopramide HCl 10 mg tablet 10 mg PO Q6H PRN nausea and 06/18/22 (Reglan) vomiting #14 tabs lorazepam 0.5 mg tablet (Ativan) 0.5 mg PO BID PRN nausea and 06/19/22 vomiting #10 tabs diazepam 5 mg tablet (Valium) 5 mg PO BID-QID PRN muscle spasm 08/08/22 #10 tabs hydrocodone 5 mg-acetaminophen 325 1 tab PO Q4-6H PRN pain #10 tabs 08/08/22 mg tablet ketorolac 10 mg tablet 10 mg PO Q6H PRN pain #14 tabs 08/08/22 lidocaine 5 % topical patch 1 patch topical DAILY #15 ea 08/08/22 (Lidoderm) furosemide 20 mg tablet (Lasix) 20 mg PO DAILY #3 tabs 01/23/23 isosorbide mononitrate 30 mg 30 mg PO DAILY #30 tabs 01/24/23 tablet,extended release 24 hr diazepam 5 mg tablet (Valium) 5 mg PO BID-QID PRN muscle spasm 03/12/23 #10 tabs hydrocodone 5 mg-acetaminophen 325 1 tab PO Q4-6H PRN pain #10 tabs 03/12/23 mg tablet methylprednisolone 4 mg tablets in See Rx Instructions PO .COMPLEX 03/12/23 a dose pack (Medrol (Jabier)) #21 ea hydrocodone 5 mg-acetaminophen 325 1 tab PO QID PRN pain #10 tabs 09/11/23 mg tablet ondansetron 4 mg disintegrating 4 mg PO Q8H PRN nausea and 09/17/23 tablet vomiting #10 tabs metoclopramide HCl 10 mg tablet 10 mg PO Q6H PRN nausea and 09/19/23 (Reglan) vomiting #14 tabs morphine 15 mg immediate release 15 mg PO Q6H PRN pain #10 tabs 09/19/23 tablet morphine 15 mg immediate release 15 mg PO Q6H PRN pain #15 tabs 09/19/23 tablet naloxone 4 mg/actuation nasal 4 mg intranasal Q2M #2 ea 09/19/23 spray (Narcan) [id number] 1 cap PO Q4-6H PRN pain #14 caps 10/10/23 50 mg-300 mg-40 mg capsule (Fioricet) isosorbide mononitrate 60 mg 60 mg PO QAM #30 tabs 01/02/24 tablet,extended release 24 hr methylprednisolone 4 mg tablets in See Rx Instructions PO .COMPLEX 03/17/24 a dose pack (Medrol (Jabier)) #21 ea hydrocodone 5 mg-acetaminophen 325 1 tab PO Q8H PRN pain #14 tabs 03/18/24 mg tablet cyclobenzaprine 10 mg tablet 10 mg PO TID PRN muscle spasm #14 04/09/24 tabs hydrocodone 5 mg-acetaminophen 325 1 tab PO Q4-6H PRN pain #10 tabs 04/09/24 mg tablet cyclobenzaprine 10 mg tablet 10 mg PO TID PRN muscle spasm #10 05/05/24 tabs hydrocodone 5 mg-acetaminophen 325 1 tab PO QID PRN pain #10 tabs 05/05/24 mg tablet benzonatate 200 mg capsule 200 mg PO TID PRN cough #30 caps 06/12/24 ondansetron 4 mg disintegrating 4 mg PO Q8H PRN nausea and 06/12/24 tablet vomiting #14 tabs oxycodone-acetaminophen 5 mg-325 1 tab PO Q8H PRN pain #6 tabs 06/25/24 mg tablet (Percocet) ondansetron 4 mg disintegrating 4 mg PO Q8H PRN nausea and 07/07/24 tablet vomiting #10 tabs Allergies Allergy/AdvReac Type Severity Reaction Status Date / Time lisinopril Allergy Severe Anaphylaxis Verified 07/07/24 12:12 metformin AdvReac Vomiting Verified 07/07/24 12:12 Patient History Medical History UTI (urinary tract infection) Facet arthropathy, lumbar Atrial fibrillation Lumbar radiculopathy Tinnitus Nose fracture (~06/29/21) HLD (hyperlipidemia) Heart murmur Chronic pancreatitis Depression Chronic back pain Breast cancer Migraine headache Hypothyroidism Hypertension Surgical History Hx of tonsillectomy History of colonoscopy Hx of oophorectomy History of hysterectomy Hx of breast surgery Hx of cholecystectomy Family History Father Brain tumor Congestive heart failure Mother Hypertension Stroke Grandfather Stroke Social History household members: spouse Smoking Status: Former smoker alcohol intake: current Smoking Status: Former smoker tobacco type: cigarettes alcohol intake frequency: a few times a month Alcohol type: wine Substance Use Type: does not use Exam Initial Vital Signs Initial Vital Signs: Vital Signs Temperature 97.6 F 07/07/24 12:12 Pulse Rate 66 07/07/24 12:12 Respiratory Rate 16 07/07/24 12:12 Blood Pressure 150/75 H 07/07/24 12:12 Pulse Oximetry 99 07/07/24 12:12 Oxygen Delivery Method Room Air 07/07/24 12:12 GENERAL: Alert 73-year-old and in no acute distress. HEENT: Head atraumatic,EOMI, pupils reactive, face symmetric, moist mucous membranes CARDIOVASCULAR: Regular rate and rhythm without murmurs, rubs or gallops. RESPIRATORY: Breath sounds equal bilaterally, no wheezes rales or rhonchi. ABDOMEN: Soft, tender right lower quadrant no guarding or rebound negative West's : Minimal rate flank pain EXTREMITIES: Normal range of motion, no clubbing or edema. Neurovascularly intact NEUROLOGICAL: Alert and oriented x4.Normal gait and speech. SKIN: Warm, dry, no laceration, no petechiae, no rashes or lesions. Course Orders Ordered: ED Orders 07/07/24 12:17 EKG-12 Lead Stat 07/07/24 12:32 Complete Blood Count AUTO DIFF Stat Comprehensive Metabolic Panel Stat Lipase Stat 07/07/24 14:14 CT abdomen pelvis w con Stat Discontinued Medications Ketorolac Tromethamine (Ketorolac 30 Mg/Ml Vial) 15 mg IV NOW ONE Stop: 07/07/24 14:15 Last Admin: 07/07/24 14:20 Dose: 15 mg Documented By: HEENA Ondansetron HCl (Ondansetron 4 Mg/2 Ml Inj) 4 mg IV NOW PRN PRN Reason: Nausea And Vomiting Last Admin: 07/07/24 14:20 Dose: 4 mg Documented By: HEENA Ondansetron HCl (Ondansetron 4 Mg Odt) 4 mg PO NOW PRN PRN Reason: Nausea And Vomiting Vital Signs Vital signs: Vital Signs - 8 hr 07/07/24 12:12 07/07/24 15:48 Temperature 97.6 F 98.4 F Pulse Rate 66 64 Respiratory Rate 16 15 Blood Pressure 150/75 H 156/76 H Pulse Oximetry 99 100 Oxygen Delivery Method Room Air MDM - Abdominal Pain Lab Data 07/07/24 12:32 07/07/24 12:32 Labs: Lab Results 07/07/24 Range/Units 12:32 WBC 8.4 (4.5-11.0) X10^3/uL RBC 5.08 (4.0-5.2) X10^6/uL Hgb 15.9 (12.0-16.0) g/dL Hct 47.3 H (36-46) % MCV 93.0 (80-100) fL MCH 31.2 (26-34) PG MCHC 33.6 (30-36) % RDW 14.8 (11.6-14.8) % Plt Count 233 (150-400) X10^3/uL Neut % (Auto) 68.3 (50-75) % Lymph % (Auto) 20.8 L (25-40) % [place] % (Auto) 9.5 (3-14) % Eos % (Auto) 0.9 L (2-4) % Baso % (Auto) 0.5 (0-2) % Neut # (Auto) 5700 (2024-8567) /uL Lymph # (Auto) 1800 (9658-3919) /uL [place] # (Auto) 800 (0-900) /uL Eos # (Auto) 100 (0-450) /uL Baso # (Auto) 0 (0-100) /uL Sodium 136 L (137-145) mmol/L Potassium 3.7 (3.4-5.1) mmol/L Chloride 106 (98-107) mmol/L Carbon Dioxide 20 L (22-32) mmol/L BUN 21 H (7-17) mg/dL Creatinine 1.22 H (0.52-1.04) mg/dL Estimated GFR 46 L (>60) mL/min BUN/Creatinine Ratio 17.2 (6-22) Glucose 101 (80-110) mg/dL Calcium 10.0 (8.4-10.2) mg/dL Total Bilirubin 0.7 (0.2-1.3) mg/dL AST 30 (14-36) IU/L ALT 22 (<35) IU/L Alkaline Phosphatase 84 (38-126) U/L Total Protein 7.1 (6.3-8.2) g/dL Albumin 4.4 (3.5-5.0) g/dL Globulin 2.7 (1.7-4.1) g/dL Albumin/Globulin Ratio 1.6 (1.0-2.8) Lipase 55 (23-300) U/L Point of care testing: Urine Dip Bedside Urine Glucose 1000 mg/dl Bedside Urine Bilirubin - Negative Bedside Urine Ketone - Negative Urine Specific [place] 1.010 Bedside Urine Occult Blood - Negative Bedside Urine pH 6.0 Bedside Urine Protein - Negative Bedside Urine Urobilinogen - Negative Bedside Urine Nitrite - Negative Bedside Urine Leukocytes - Negative Esterase Imaging Data CT scan - abdomen/pelvis: Radiologist's Impression: PROCEDURE: CT ABDOMEN PELVIS W CON INDICATIONS: rlq pain TECHNIQUE: After the administration of intravenous contrast, axial sections acquired from the lung bases to the pubic symphysis. Coronal and sagittal reformats were performed. For radiation dose reduction, the following was used: automated exposure control, adjustment of mA and/or kV according to patient size. COMPARISON: [facility], CT, CT ABDOMEN PELVIS W CON, 09/17/2023, 17:59. FINDINGS: Lower thorax: The lung bases are clear. Heart size normal. No hiatal hernia. Liver: Normal in size and attenuation. No contour deformity present. Biliary system: Cholecystectomy. No intra or extrahepatic bile duct dilation. Pancreas: Unremarkable without mass or inflammation evident. Spleen: Normal in size and density. Adrenals: Normal morphology and density. Reproductive system: Hysterectomy. Urinary system: Normal renal size and attenuation. No renal calculi, hydronephrosis, or solid mass present. Urinary bladder unremarkable. Gastrointestinal system: The bowel is unremarkable without evidence of bowel obstruction or inflammation. The stomach appears unremarkable. Multiple diverticula arise from the sigmoid colon without evidence of diverticulitis. Appendix: No findings to suggest acute appendicitis. Peritoneal spaces: No mesenteric or retroperitoneal adenopathy. No free air. No free fluid. Vasculature: The IVC, aorta and iliac vasculature are unremarkable. Abdominal wall: Abdominal wall intact without evidence of ventral or inguinal hernias. Musculoskeletal: Normal bone mineralization. Degenerative disc disease and arthropathy noted in lower lumbar spine. No acute fractures. IMPRESSION: No acute CT findings in the abdomen and pelvis. Chronic findings as above. Approved by: Yan Hay M.D. on 07/07/2024 at 14:10 ECG Data Attestation: I personally reviewed and interpreted this ECG as follows: Prior ECG tracings: available for review Interpretation: Normal sinus rhythm rate 62 IA interval [address] changes T-wave inversion noted in lead 3 similar to prior EKG in June 2024 MDM Narrative Medical decision making narrative: Multiple etiologies for patient's symptoms considered including, but not limited to: Nephrolithiasis appendicitis pyelonephritis Prior Charts reviewed: Previous ED visits Labs reviewed and interpreted by myself: CBC shows WBC of 8.4 hemoglobin 15.9 hematocrit 47.3 platelets 233 CMP creatinine slightly elevated 1.22 previously 1.06 electrolytes are stable Bilirubin liver enzymes lipase negative Imaging reviewed: CT shows no acute process no appendicitis no nephrolithiasis no diverticulitis no obstructing EKG reviewed as above no ischemia with persistent T-wave inversion in lead 3 Patient's symptoms improved over duration of stay with above-stated therapies. Findings and discharge diagnosis discussed with patient/family followed by verbalization of understanding Return precautions discussed with patient/family whom verbalize understanding of diagnosis and plan Discharge Plan Departure Patient Disposition: Home Clinical Impression: Abdominal pain Instructions: DI for Abdominal Pain-Adult Activity Restrictions/Additional Instructions: *You have been diagnosed with abdominal pain *What to do: At this blood work and CT are overall reassuring. I am sorry that you are having abdominal pain *Continue to take medications as directed Zofran 4 mg every 8 hours if needed for nausea or vomiting Please discuss pain management with your primary care provider unfortunately the ED can not give me any more narcotic *Follow up with your primary care provider in 2-3 days or call [phone] *Return to ER if you should have increasing pain nausea vomiting fever or any new, worsening or concerning symptoms Prescriptions: New ondansetron 4 mg tablet,disintegrating 4 mg PO Q8H PRN (Reason: nausea and vomiting) Qty: 10 0RF No Action aspirin 81 mg Tablet,Chewable 81 mg PO QAM ondansetron 4 mg tablet,disintegrating 4 mg PO Q8H PRN (Reason: nausea and vomiting) Qty: 10 0RF furosemide 20 mg Tablet 10 mg PO QAM [id number] [Fioricet] 50-300-40 mg capsule 1 cap PO Q6H PRN (Reason: pain) Qty: 10 0RF ondansetron 4 mg tablet,disintegrating 4 mg PO Q6-8H PRN (Reason: nausea and vomiting) Qty: 10 0RF rizatriptan [Maxalt] 10 mg tablet 10 mg PO Q2-4H PRN (Reason: migraine headache) Qty: 10 0RF Rx Instructions: do not exceed 3 doses per 24 hrs furosemide [Lasix] 20 mg tablet 20 mg PO DAILY Qty: 3 0RF ondansetron 4 mg tablet,disintegrating 4 mg PO Q8H PRN (Reason: nausea and vomiting) Qty: 10 0RF cyclobenzaprine 10 mg tablet 10 mg PO TID PRN (Reason: muscle spasm) Qty: 14 0RF hydrocodone-acetaminophen 5-325 mg tablet 1 tab PO Q4-6H PRN (Reason: pain) Qty: 10 0RF multivitamin Tablet 1 tab PO DAILY Qty: 0 atenolol 25 mg Tablet 25 mg PO DAILY levothyroxine [Synthroid] 150 mcg Tablet 150 mcg PO DAILY ezetimibe 10 mg Tablet 10 mg PO DAILY omega-3 fatty acids-vitamin E 1,000 mg Capsule 1 cap PO DAILY tramadol 50 mg tablet 50 mg PO Q8H PRN (Reason: pain) Qty: 14 0RF prednisone 20 mg tablet 40 mg PO DAILY Qty: 10 0RF rimegepant 75 mg tablet,disintegrating 75 mg PO Q OTHER DAY PRN (Reason: migraine headache) Qty: 10 0RF nortriptyline 10 mg capsule 10 mg PO BEDTIME Qty: 30 0RF metoclopramide HCl [Reglan] 10 mg tablet 10 mg PO Q6H PRN (Reason: nausea and vomiting) Qty: 14 0RF lorazepam [Ativan] 0.5 mg tablet 0.5 mg PO BID PRN (Reason: nausea and vomiting) Qty: 10 0RF hydrocodone-acetaminophen 5-325 mg tablet 1 tab PO Q4-6H PRN (Reason: pain) Qty: 10 0RF ketorolac 10 mg tablet 10 mg PO Q6H PRN (Reason: pain) Qty: 14 0RF lidocaine [Lidoderm] 5 % adhesive patch,medicated 1 patch TOP DAILY Qty: 15 0RF Rx Instructions: leave on most painful area for 12 hrs diazepam [Valium] 5 mg tablet 5 mg PO BID-QID PRN (Reason: muscle spasm) Qty: 10 0RF isosorbide mononitrate 30 mg tablet extended release 24 hr 30 mg PO DAILY Qty: 30 0RF hydrocodone-acetaminophen 5-325 mg tablet 1 tab PO Q4-6H PRN (Reason: pain) Qty: 10 0RF methylprednisolone [Medrol (Jabier)] 4 mg tablets,dose pack See Rx Instructions .ROUTE .COMPLEX Qty: 21 0RF Rx Instructions: orally per package directions diazepam [Valium] 5 mg tablet 5 mg PO BID-QID PRN (Reason: muscle spasm) Qty: 10 0RF hydrocodone-acetaminophen 5-325 mg tablet 1 tab PO QID PRN (Reason: pain) Qty: 10 0RF morphine 15 mg tablet 15 mg PO Q6H PRN (Reason: pain) Qty: 10 0RF naloxone [Narcan] 4 mg/actuation spray,non-aerosol 4 mg intranasal Q2M Qty: 2 0RF Rx Instructions: spray 1 dose into ONE nostril; alternate nostrils w each dose until help arrives metoclopramide HCl [Reglan] 10 mg tablet 10 mg PO Q6H PRN (Reason: nausea and vomiting) Qty: 14 0RF morphine 15 mg tablet 15 mg PO Q6H PRN (Reason: pain) Qty: 15 0RF [id number]-[id number]-[id number] [Fioricet] 50-300-40 mg capsule 1 cap PO Q4-6H PRN (Reason: pain) Qty: 14 0RF isosorbide mononitrate 60 mg tablet extended release 24 hr 60 mg PO QAM Qty: 30 0RF methylprednisolone [Medrol (Jabier)] 4 mg tablets,dose pack See Rx Instructions .ROUTE .COMPLEX Qty: 21 0RF Rx Instructions: for 6 days hydrocodone-acetaminophen 5-325 mg tablet 1 tab PO Q8H PRN (Reason: pain) Qty: 14 0RF hydrocodone-acetaminophen 5-325 mg tablet 1 tab PO QID PRN (Reason: pain) Qty: 10 0RF cyclobenzaprine 10 mg tablet 10 mg PO TID PRN (Reason: muscle spasm) Qty: 10 0RF ondansetron 4 mg tablet,disintegrating 4 mg PO Q8H PRN (Reason: nausea and vomiting) Qty: 14 0RF benzonatate 200 mg capsule 200 mg PO TID PRN (Reason: cough) Qty: 30 0RF oxycodone-acetaminophen [Percocet] 5-325 mg tablet 1 tab PO Q8H PRN (Reason: pain) Qty: 6 0RF potassium chloride 10 mEq capsule, extended release 20 meq PO DAILY cholecalciferol (vitamin D3) 50 mcg (2,000 unit) capsule 50 mcg PO DAILY Eliquis 5 mg tablet 5 mg PO BID Referrals: Yuli Lang PA-C [Primary Care Provider] - Stand Alone Forms: Patient Portal/API
--- NOTE | 2024-07-07 14:09 | PC.NURSE ---
Pt family states they have been here for over three hours and are wondering if anything is going on. RN informed the doctor will be in as soon as she can. Pt offered fluids. Pt declined.
--- NOTE | 2024-07-07 14:10 | PC.NURSE ---
RLQ pain. Pt states this started a day and a half ago. Pt points to her right femoral area. Pt states she woke up this morning with nausea. Pt states she has been taking tyelonal for her pain. Pt reports pain is constant.
--- NOTE | 2024-07-07 14:14 | DI.CT.S_ITS ---
PROCEDURE: CT ABDOMEN PELVIS W CON INDICATIONS: rlq pain TECHNIQUE: After the administration of intravenous contrast, axial sections acquired from the lung bases to the pubic symphysis. Coronal and sagittal reformats were performed. For radiation dose reduction, the following was used: automated exposure control, adjustment of mA and/or kV according to patient size. COMPARISON: [facility], CT, CT ABDOMEN PELVIS W CON, 09/17/2023, 17:59. FINDINGS: Lower thorax: The lung bases are clear. Heart size normal. No hiatal hernia. Liver: Normal in size and attenuation. No contour deformity present. Biliary system: Cholecystectomy. No intra or extrahepatic bile duct dilation. Pancreas: Unremarkable without mass or inflammation evident. Spleen: Normal in size and density. Adrenals: Normal morphology and density. Reproductive system: Hysterectomy. Urinary system: Normal renal size and attenuation. No renal calculi, hydronephrosis, or solid mass present. Urinary bladder unremarkable. Gastrointestinal system: The bowel is unremarkable without evidence of bowel obstruction or inflammation. The stomach appears unremarkable. Multiple diverticula arise from the sigmoid colon without evidence of diverticulitis. Appendix: No findings to suggest acute appendicitis. Peritoneal spaces: No mesenteric or retroperitoneal adenopathy. No free air. No free fluid. Vasculature: The IVC, aorta and iliac vasculature are unremarkable. Abdominal wall: Abdominal wall intact without evidence of ventral or inguinal hernias. Musculoskeletal: Normal bone mineralization. Degenerative disc disease and arthropathy noted in lower lumbar spine. No acute fractures. IMPRESSION: No acute CT findings in the abdomen and pelvis. Chronic findings as above. Approved by: Yan Hya M.D. on 07/07/2024 at 14:10
[2024-07-07] MEDS: KETOROLAC 30 MG/ML VIAL 15 MG IV (14:20)
[2024-07-07] MEDS: ONDANSETRON 4 MG/2 ML INJ IV (14:20)
[2024-07-07 15:48] VITALS: BP 156/76; PULSE 64; RESP 15; TEMP 36.9; O2SAT 100
== END 2024-07-07 16:06 | disposition home or self-care (01) ==
PROVIDERS: Emergency Provider Emergency Medicine; PCP Physician Assistant
DX: R10.31 Right lower quadrant pain (principal)
CPT/HCPCS: 74177; 80053; 81003; 83690; 85025; 93005; 96374; 96375; 99283; 99284; J1885; J2405; Q9967

== ENCOUNTER 2024-07-09 11:14 | Emergency (ER) | payer MEDICARE, OTHER, SELFPAY ==
[2021-06-25 17:33] VITALS: BMI 28.1
[2024-07-09 11:18] VITALS: BP 120/86; PULSE 82; RESP 16; TEMP 36.4; O2SAT 98; BMI 27.3
--- NOTE | 2024-07-09 11:51 | ED.RECABL ---
HPI - Recheck/Abnormal Lab/Rx <Real Roa PA-C - Last Filed: 07/09/24 17:52> General Chief Complaint: Recheck/Abnormal Lab/Rx Stated Complaint: pulled back muscle Time Seen by Provider: 07/09/24 11:30 Source: patient Mode of arrival: Ambulatory History of Present Illness HPI narrative: 73-year-old female with past medical history chronic back pain, migraines presents to the ED with acute on chronic lower back pain. Patient states that she has a muscle spasm in her lower back for the last 3 days, was seen in the walk-in clinic yesterday and prescribed Flexeril. Patient states that the Flexeril is causing her to be nauseous and is requesting a different muscle relaxant. No trauma. Patient denies numbness, tingling, weakness. Patient is able to walk normally. Patient denies saddle paresthesias, urinary difficulties. Related Data Home Medications Medication Instructions Recorded Confirmed aspirin 81 mg chewable tablet 81 mg PO QAM 07/26/20 07/08/24 atenolol 25 mg tablet 25 mg PO DAILY 06/25/21 07/08/24 levothyroxine 150 mcg tablet 150 mcg PO DAILY 06/25/21 07/08/24 (Synthroid) omega-3 fatty acids-vitamin E 1 cap PO DAILY 06/25/21 07/08/24 1,000 mg capsule apixaban 5 mg tablet (Eliquis) 5 mg PO BID 07/22/21 07/08/24 cholecalciferol (vitamin D3) 50 50 mcg PO DAILY 07/22/21 07/08/24 mcg (2,000 unit) capsule potassium chloride 10 mEq 20 meq PO DAILY 07/22/21 07/08/24 capsule,extended release Previous Rx's Medication Instructions Recorded ondansetron 4 mg disintegrating 4 mg PO Q6-8H PRN nausea and 06/15/22 tablet vomiting #10 tabs isosorbide mononitrate 60 mg 60 mg PO QAM #30 tabs 01/02/24 tablet,extended release 24 hr benzonatate 200 mg capsule 200 mg PO TID PRN cough #30 caps 06/12/24 cyclobenzaprine 10 mg tablet 10 mg PO BID PRN muscle spasm #10 07/08/24 tabs Allergies Allergy/AdvReac Type Severity Reaction Status Date / Time lisinopril Allergy Severe Anaphylaxis Verified 07/09/24 11:18 cyclobenzaprine AdvReac Vomiting Verified 07/09/24 11:21 metformin AdvReac Vomiting Verified 07/09/24 11:18 Review of Systems <Real Roa PA-C - Last Filed: 07/09/24 17:52> Constitutional Constitutional: Denies chills, Denies fatigue, Denies fever(s), Denies frequent falls, Denies lethargy and Denies weakness Eyes Eyes: Denies change in vision, Denies eye discharge, Denies irritation and Denies loss of vision ENT Ears, Nose, Mouth, and Throat: Denies change in voice, Denies dizziness, Denies neck pain, Denies sore throat and Denies throat swelling Cardiovascular Cardiovascular: Denies chest pain, Denies irregular heart rhythm, Denies lightheadedness, Denies palpitations, Denies dyspnea, Denies dyspnea on exertion and Denies orthopnea Respiratory Respiratory: Denies cough, Denies dyspnea, Denies dyspnea on exertion and Denies wheezing Gastrointestinal Gastrointestinal: Denies abdominal pain, Denies change in bowel habits, Denies diarrhea, Denies nausea and Denies vomiting Musculoskeletal Musculoskeletal: Reports back pain, Denies neck pain and Denies numbness Integumentary/Breasts Skin/Breast: Denies pruritus, Denies erythema, Denies rash and Denies wounds Neurologic Neurologic: Denies behavioral changes, Denies confusion, Denies dizziness, Denies frequent falls, Denies loss of vision, Denies numbness and Denies weakness Psychiatric Psychiatric: Denies anxiety, Denies behavioral changes, Denies confusion, Denies depression, Denies homicidal ideation and Denies suicidal ideation Endocrine Endocrine: Denies fatigue, Denies flushing and Denies palpitations Hematologic/Lymphatic Hematologic/Lymphatic: Denies easy bruising Allergic/Immunologic Allergic/Immunologic: Denies urticaria, Denies throat swelling and Denies wheezing Patient History <Real Roa PA-C - Last Filed: 07/09/24 17:52> Medical History UTI (urinary tract infection) Facet arthropathy, lumbar Atrial fibrillation Lumbar radiculopathy Tinnitus Nose fracture (~06/29/21) HLD (hyperlipidemia) Heart murmur Chronic pancreatitis Depression Chronic back pain Breast cancer Migraine headache Hypothyroidism Hypertension Surgical History Hx of tonsillectomy History of colonoscopy Hx of oophorectomy History of hysterectomy Hx of breast surgery Hx of cholecystectomy Family History Father Brain tumor Congestive heart failure Mother Hypertension Stroke Grandfather Stroke Social History household members: spouse Smoking Status: Former smoker alcohol intake: current Smoking Status: Former smoker tobacco type: cigarettes alcohol intake frequency: a few times a month Alcohol type: wine Substance Use Type: does not use Exam <Real Roa PA-C - Last Filed: 07/09/24 17:52> Narrative Exam Narrative: Const General:?cooperative, healthy appearing and comfortable HENMT Head:?normal to inspection Ears:?hearing grossly normal bilaterally Nose:?external nose normal Face and sinus:?normal facial exam and sinuses nontender Mouth:?oral mucosae normal Throat:?posterior oropharynx normal Eyes General:?appearance normal, both eyes and all related structures Neck Neck:?normal visual inspection and no lymphadenopathy noted Resp Effort & Inspection:?normal respiratory effort Auscultation:?clear to auscultation bilaterally Cardio Rate:?regular rate Rhythm:?regular rhythm Musculoskeletal No midline tenderness to palpation. No paraspinal tenderness to palpation. Patient is neurovascularly intact. Gait is normal. Neuro General:?patient alert, patient awake and patient oriented x3 Initial Vital Signs Initial Vital Signs: Vital Signs Temperature 97.5 F L 07/09/24 11:18 Pulse Rate 82 07/09/24 11:18 Respiratory Rate 16 07/09/24 11:18 Blood Pressure 120/86 07/09/24 11:18 Pulse Oximetry 98 07/09/24 11:18 Oxygen Delivery Method Room Air 07/09/24 11:18 <Sandra Perales DO - Last Filed: 07/14/24 18:02> Initial Vital Signs Initial Vital Signs: Vital Signs Temperature 97.5 F L 07/09/24 11:18 Pulse Rate 82 07/09/24 11:18 Respiratory Rate 16 07/09/24 11:18 Blood Pressure 120/86 07/09/24 11:18 Pulse Oximetry 98 07/09/24 11:18 Oxygen Delivery Method Room Air 07/09/24 11:18 Course <Real Roa PA-C - Last Filed: 07/09/24 17:52> Vital Signs Vital signs: Vital Signs - 8 hr 07/09/24 11:18 Temperature 97.5 F L Pulse Rate 82 Respiratory Rate 16 Blood Pressure 120/86 Pulse Oximetry 98 Oxygen Delivery Method Room Air <Sandra Perales DO - Last Filed: 07/14/24 18:02> Vital Signs Vital signs: Vital Signs - 8 hr 07/09/24 11:18 Temperature 97.5 F L Pulse Rate 82 Respiratory Rate 16 Blood Pressure 120/86 Pulse Oximetry 98 Oxygen Delivery Method Room Air MDM - Recheck/Abnormal Lab/Rx <Real Roa PA-C - Last Filed: 07/09/24 17:52> MDM Narrative Medical decision making narrative: 73-year-old female with past medical history chronic back pain, migraines presents to the ED with acute on chronic lower back pain. History and Physical exam is reassuring, no red flags. No indication for imaging today. Prescribed methocarbamol. Recommend follow-up with PCP. ED return precautions discussed with patient. Patient verbalized understanding. Medical records reviewed: Yes Discharge Plan Departure Patient Disposition: Home Clinical Impression: Back pain Instructions: Low Back Pain Activity Restrictions/Additional Instructions: You were evaluated in the ED today for a back sprain. Given that Flexeril was giving you nausea, you are being prescribed an alternative muscle relaxant methocarbamol. Please follow-up with your PCP as soon as possible. Return to the ED if you have worsening symptoms, urinary difficulties, numbness, tingling, weakness. Prescriptions: No Action cyclobenzaprine 10 mg tablet 10 mg PO BID PRN (Reason: muscle spasm) Qty: 10 0RF Rx Instructions: Cautioned with operating machinery, may cause sedation. aspirin 81 mg Tablet,Chewable 81 mg PO QAM ondansetron 4 mg tablet,disintegrating 4 mg PO Q6-8H PRN (Reason: nausea and vomiting) Qty: 10 0RF atenolol 25 mg Tablet 25 mg PO DAILY levothyroxine [Synthroid] 150 mcg Tablet 150 mcg PO DAILY omega-3 fatty acids-vitamin E 1,000 mg Capsule 1 cap PO DAILY isosorbide mononitrate 60 mg tablet extended release 24 hr 60 mg PO QAM Qty: 30 0RF benzonatate 200 mg capsule 200 mg PO TID PRN (Reason: cough) Qty: 30 0RF potassium chloride 10 mEq capsule, extended release 20 meq PO DAILY cholecalciferol (vitamin D3) 50 mcg (2,000 unit) capsule 50 mcg PO DAILY Eliquis 5 mg tablet 5 mg PO BID Referrals: Yuli Lang PA-C [Primary Care Provider] - Stand Alone Forms: Patient Portal/API ED Sign-out <Sandra Perales DO - Last Filed: 07/14/24 18:02> Cosign ED Attending Cosignature Attestation: I was available for consultation.
== END 2024-07-09 12:03 | disposition home or self-care (01) ==
PROVIDERS: Emergency Provider Student in an Organized Health Care Education/Training Program; PCP Physician Assistant
DX: M54.50 Low back pain, unspecified (principal)
CPT/HCPCS: 99281

== ENCOUNTER 2024-07-16 08:25 | Emergency (ER) | payer MEDICARE, OTHER, SELFPAY ==
[2021-06-25 17:33] VITALS: BMI 28.1
[2024-07-16] VITALS (11 sets, daily range): BP systolic 136–179; BP diastolic 66–94; PULSE 60–79; RESP 8–30; TEMP 37.2; O2SAT 96–100; BMI 27.3
--- NOTE | 2024-07-16 08:35 | ED_ITS ---
HPI - Abdominal Pain General Chief Complaint: GI Bleed Stated Complaint: r side abd/back pain, bloody stool Time Seen by Provider: 07/16/24 08:35 History of Present Illness HPI narrative: Patient is a 73-year-old female history of hypothyroidism AFib on Eliquis, comes into the ED from home for evaluation of abdominal pain lower GI bleeding ongoing and persistent for the past several days. States that due to her symptoms she did have a outpatient colonoscopy performed approximately 6 days ago.. States that over the past several weeks she has been having some mild abdominal pain with intermittent bright red blood per rectum. States that she did see a outside hospital emergency room over the past 5 days every day for the symptoms. She presents today because she stopped taking Eliquis as instructed a few days ago and today she started and noticed some bleeding again. She is prescribed multiple narcotics due to her history of migraines. Related Data Home Medications Medication Instructions Recorded Confirmed aspirin 81 mg chewable tablet 81 mg PO QAM 07/26/20 07/08/24 atenolol 25 mg tablet 25 mg PO DAILY 06/25/21 07/08/24 levothyroxine 150 mcg tablet 150 mcg PO DAILY 06/25/21 07/08/24 (Synthroid) omega-3 fatty acids-vitamin E 1 cap PO DAILY 06/25/21 07/08/24 1,000 mg capsule apixaban 5 mg tablet (Eliquis) 5 mg PO BID 07/22/21 07/08/24 cholecalciferol (vitamin D3) 50 50 mcg PO DAILY 07/22/21 07/08/24 mcg (2,000 unit) capsule potassium chloride 10 mEq 20 meq PO DAILY 07/22/21 07/08/24 capsule,extended release Previous Rx's Medication Instructions Recorded ondansetron 4 mg disintegrating 4 mg PO Q6-8H PRN nausea and 06/15/22 tablet vomiting #10 tabs isosorbide mononitrate 60 mg 60 mg PO QAM #30 tabs 01/02/24 tablet,extended release 24 hr benzonatate 200 mg capsule 200 mg PO TID PRN cough #30 caps 06/12/24 cyclobenzaprine 10 mg tablet 10 mg PO BID PRN muscle spasm #10 07/08/24 tabs Allergies Allergy/AdvReac Type Severity Reaction Status Date / Time lisinopril Allergy Severe Anaphylaxis Verified 07/09/24 11:18 cyclobenzaprine AdvReac Vomiting Verified 07/09/24 11:21 metformin AdvReac Vomiting Verified 07/09/24 11:18 Review of Systems Review of Systems Narrative: General: Denies fever, chills, weight loss HEENT: Denies headache, eye drainage, eye irritation, head trauma, sore throat, voice change Cardiovascular: Denies any chest pain, palpitations, shortness of breath, tachycardia Respiratory: Denies any shortness of breath, cough, wheeze, stridor GI/: Positive abdominal pain, positive dark stool denies nausea, vomiting, diarrhea,, urinary frequency, urinary retention, dysuria, hematuria MSK: Denies any joint pain, muscle pains, swelling Skin: Denies any rashes, lesions, discoloration Neuro: Denies any headache, lightheadedness, dizziness, fainting, weakness Psych: Denies SI/HI Patient History Medical History UTI (urinary tract infection) Facet arthropathy, lumbar Atrial fibrillation Lumbar radiculopathy Tinnitus Nose fracture (~06/29/21) HLD (hyperlipidemia) Heart murmur Chronic pancreatitis Depression Chronic back pain Breast cancer Migraine headache Hypothyroidism Hypertension Surgical History Hx of tonsillectomy History of colonoscopy Hx of oophorectomy History of hysterectomy Hx of breast surgery Hx of cholecystectomy Family History Father Brain tumor Congestive heart failure Mother Hypertension Stroke Grandfather Stroke Social History household members: spouse Smoking Status: Former smoker alcohol intake: current Smoking Status: Former smoker tobacco type: cigarettes alcohol intake frequency: a few times a month Alcohol type: wine Substance Use Type: does not use Exam Initial Vital Signs Initial Vital Signs: Vital Signs Pulse Rate 65 07/16/24 08:32 Pulse Oximetry 100 07/16/24 08:32 Course Orders Ordered: ED Orders 07/16/24 09:00 Complete Blood Count AUTO DIFF Stat Comprehensive Metabolic Panel Stat Lactate (Lactic Acid) Stat Lipase Stat PTT Partial Thromboplastin Cuco Stat Prothrombin Time INR Stat Type and Screen Stat 07/16/24 09:38 CT angio abdomen pelvis Stat Sodium Chloride (Normal Saline 0.9%) 1,000 mls @ 500 mls/hr IV BOLUS ONE Stop: 07/16/24 11:37 Last Admin: 07/16/24 10:36 Dose: 500 mls/hr Documented By: RB Discontinued Medications Hydromorphone HCl (Hydromorphone 1 Mg Inj) 1 mg IV NOW ONE Stop: 07/16/24 09:40 Last Admin: 07/16/24 10:36 Dose: 1 mg Documented By: RB Morphine Sulfate (Morphine 4 Mg/Ml Inj) 4 mg IV NOW ONE Stop: 07/16/24 08:44 Last Admin: 07/16/24 09:13 Dose: 4 mg Documented By: RB Pantoprazole Sodium (Pantoprazole 40 Mg Vial) 80 mg IV NOW ONE Stop: 07/16/24 08:46 Last Admin: 07/16/24 09:13 Dose: 80 mg Documented By: RB Vital Signs Vital signs: Vital Signs - 8 hr 07/16/24 08:32 07/16/24 08:40 07/16/24 09:00 Temperature 99 F Pulse Rate 65 73 60 Respiratory Rate 17 28 H Blood Pressure 179/70 H Pulse Oximetry 100 100 100 Oxygen Delivery Method Room Air 07/16/24 09:01 07/16/24 09:01 07/16/24 09:30 Temperature Pulse Rate 62 62 Respiratory Rate 30 H 18 Blood Pressure 139/94 H Pulse Oximetry 100 99 Oxygen Delivery Method 07/16/24 09:30 07/16/24 09:59 07/16/24 09:59 Temperature Pulse Rate 79 Respiratory Rate 14 Blood Pressure 136/76 178/74 H Pulse Oximetry 96 Oxygen Delivery Method 07/16/24 10:00 07/16/24 10:01 07/16/24 10:01 Temperature Pulse Rate 76 73 Respiratory Rate 9 L 8 L Blood Pressure 160/70 H Pulse Oximetry 100 100 Oxygen Delivery Method 07/16/24 10:30 07/16/24 10:30 Temperature Pulse Rate 65 Respiratory Rate 17 Blood Pressure 149/66 H Pulse Oximetry 100 Oxygen Delivery Method MDM - Abdominal Pain Lab Data 07/16/24 09:00 07/16/24 09:00 Labs: Lab Results 07/16/24 Range/Units 09:00 WBC 8.9 (4.5-11.0) X10^3/uL RBC 3.07 L (4.0-5.2) X10^6/uL Hgb 9.8 L (12.0-16.0) g/dL Hct 29.1 L (36-46) % MCV 94.8 (80-100) fL MCH 32.0 (26-34) PG MCHC 33.7 (30-36) % RDW 15.4 H (11.6-14.8) % Plt Count 251 (150-400) X10^3/uL Neut % (Auto) 74.8 (50-75) % Lymph % (Auto) 17.3 L (25-40) % Cavalier % (Auto) 6.1 (3-14) % Eos % (Auto) 1.2 L (2-4) % Baso % (Auto) 0.6 (0-2) % Neut # (Auto) 6600 (0988-9273) /uL Lymph # (Auto) 1500 (3198-5008) /uL Cavalier # (Auto) 500 (0-900) /uL Eos # (Auto) 100 (0-450) /uL Baso # (Auto) 100 (0-100) /uL PT 12.8 H (9.4-12.5) SECONDS INR 1.1 (0.9-1.3) APTT 37 H (25.1-36.5) SECONDS Sodium 138 (137-145) mmol/L Potassium 4.4 (3.4-5.1) mmol/L Chloride 109 H (98-107) mmol/L Carbon Dioxide 20 L (22-32) mmol/L BUN 15 (7-17) mg/dL Creatinine 1.27 H (0.52-1.04) mg/dL Estimated GFR 44 L (>60) mL/min BUN/Creatinine Ratio 11.8 (6-22) Glucose 109 (80-110) mg/dL Lactate 1.0 (0.7-2.1) mmol/L Calcium 8.9 (8.4-10.2) mg/dL Total Bilirubin 0.7 (0.2-1.3) mg/dL AST 35 (14-36) IU/L ALT 27 (<35) IU/L Alkaline Phosphatase 63 (38-126) U/L Total Protein 6.0 L (6.3-8.2) g/dL Albumin 3.8 (3.5-5.0) g/dL Globulin 2.2 (1.7-4.1) g/dL Albumin/Globulin Ratio 1.7 (1.0-2.8) Lipase 72 (23-300) U/L Blood Type A Positive Antibody Screen Negative Imaging Data CTA abd pelvis: Radiologist's Impression: [address] [address] [address] Scan Report Signed Patient: Jackie Javed MR#: [id number] : 1950 Acct:[id number] Age/Sex: 73 / F Date of Service: 07/16/24 Loc: ED Accession Number: [id number] Procedure: CT angio abdomen pelvis Ordering Provider: Antonio Hollins D.O. PROCEDURE: CT ANGIO ABDOMEN PELVIS INDICATIONS: abd pain has been off eliquis (r/o mesenteric ischemia) TECHNIQUE: After the administration of intravenous contrast, 2.5 mm thick sections acquired from the diaphragm to the symphysis. 10 mm maximum-intensity projection (MIP) reformats were then acquired. For radiation dose reduction, the following was used: automated exposure control. COMPARISON: [facility], CT, CT ABDOMEN PELVIS W CON, 07/07/2024, 14:19. FINDINGS: Image Quality: Diagnostic. Abdominal aorta: No aortic aneurysm or evidence of acute aortic syndrome. Mesenteric arteries: Patent without hemodynamically significant stenosis. Renal arteries: Patent without hemodynamically significant stenosis. OTHER: Lower Chest: No significant findings. Liver: No solid mass. Gallbladder: Removed. Biliary ducts: Common bile duct remains mildly prominent likely related to post cholecystectomy sequela and is unchanged. Pancreas: No ductal dilation. Spleen: Size is within normal limits. Adrenal Glands: No adrenal nodules. Kidneys and Ureters: No hydronephrosis. No solid mass. No complex renal cystic lesion which requires follow up. Bilateral renal atrophy. Stomach and Bowel: Normal colonic caliber, without significant wall thickening. Colonic diverticula are present. There is mild thickened appearance of the left colon without inflammatory change. There is overall appearance of luminal narrowing. Peritoneum: No abnormal intraperitoneal fluid. No free air. Ventral Wall: No hernia. Abdominal Nodes: No retroperitoneal or mesenteric adenopathy by size criteria. Vessels: Aorta and inferior vena cava are normal in size. PELVIS: Pelvic Organs: Unremarkable. Bladder: Unremarkable. Pelvic Nodes: No enlarged lymph nodes. Miscellaneous: No inguinal hernias are seen. Bones: No aggressive osseous abnormality. IMPRESSION: Mild appearance of thickening within the left colon. While this can be seen with mesenteric ischemia, this is suspected to be related to incomplete distention given lack of inflammatory change. MDM Narrative Medical decision making narrative: Patient is a 73-year-old female history of AFib on Eliquis, migraine headaches, chronic opioid use secondary to this. Comes into the ED from home for evaluation of abdominal pain and dark stools. This has been ongoing persistent for the past several weeks has already had an outpatient endoscopy performed in his had multiple outside visits to other ERs with multiple imaging and lab work. That showed no acute findings. Lab work performed here in the emergency department showed stable hemoglobin. Directed patient to follow up with PCP and GI in outpatient setting she verbalized understanding of this agrees to being discharged home with outpatient follow up 0926: Obtained records from patient's previous visits at [facility], patient hemoglobin on 07/15/2024 was 9.3 [address] also had a CT angio abdomen pelvis performed on 07/11/2024 that only showed abnormal thickening of the 2nd portion of the duodenum in dictating inflammatory process either duodenitis for non perforated ulcer. There was no extravasation within the bowel to suggest active GI bleeding. Patient also with colonic diverticulosis without diverticulitis. Patient had an additional CT of her abdomen pelvis with contrast performed on 07/14/2024 that just showed thickening of the duodenum with improvement from the 07/11/2024 imaging 0940: Patient was re-evaluated informed of her lab work, states that she is still having significant amount of abdominal pain, she also states that she has actually been off her Eliquis for approximately 7 full days. Given the fact that patient complaining of persistent abdominal pain and has been off her Eliquis despite previous CT scan showing negative findings will order CT angio abdomen and pelvis to rule out acute mesenteric ischemia. Additional pain meds ordered. 1048: CT scan showing mild thickening to the left colon which is similar to previous CT scans performed previous days ago, low likelihood of mesenteric ischemia at this point given patient with normal lactate no elevation in WBC. Patient instructed to follow up for repeat lab work and imaging in an outpatient setting as well as follow up with GI. She verbalized understanding of this agrees to being discharged home with outpatient follow up Discharge Plan Departure Patient Disposition: Home Clinical Impression: Abdominal pain Activity Restrictions/Additional Instructions: Please follow up with GI and PCP Please read the discharge instructions sheet carefully and bring all papers to all doctor follow-up visits, as it may contain information that your doctor may want to see. Disease processes change and evolve, if your symptoms worsen or if you develop any new symptoms that are concerning to you please return for evaluation. Your evaluation today does not show any evidence of any life- threatening/serious illnesses requiring admission to the hospital or surgery. Please follow-up with your doctor for re-evaluation in approximately 1 day. Seek immediate medical attention for any worrisome symptoms. Prescriptions: No Action cyclobenzaprine 10 mg tablet 10 mg PO BID PRN (Reason: muscle spasm) Qty: 10 0RF Rx Instructions: Cautioned with operating machinery, may cause sedation. aspirin 81 mg Tablet,Chewable 81 mg PO QAM ondansetron 4 mg tablet,disintegrating 4 mg PO Q6-8H PRN (Reason: nausea and vomiting) Qty: 10 0RF atenolol 25 mg Tablet 25 mg PO DAILY levothyroxine [Synthroid] 150 mcg Tablet 150 mcg PO DAILY omega-3 fatty acids-vitamin E 1,000 mg Capsule 1 cap PO DAILY isosorbide mononitrate 60 mg tablet extended release 24 hr 60 mg PO QAM Qty: 30 0RF benzonatate 200 mg capsule 200 mg PO TID PRN (Reason: cough) Qty: 30 0RF potassium chloride 10 mEq capsule, extended release 20 meq PO DAILY cholecalciferol (vitamin D3) 50 mcg (2,000 unit) capsule 50 mcg PO DAILY Eliquis 5 mg tablet 5 mg PO BID Referrals: Guido Wharton MD [Non-Staff] - Yuli Lang PA-C [Primary Care Provider] - Stand Alone Forms: Patient Portal/API
[2024-07-16] MEDS: PANTOPRAZOLE 40 MG VIAL 80 MG IV (09:13)
[2024-07-16] MEDS: MORPHINE 4 MG/ML INJ IV (09:13)
[2024-07-16 09:22] LABS: Add Manual Diff / Slide Review NO; Basophils Absolute Auto 100 /uL (0-100); Basophils Percent Auto 0.6 % (0-2); Eosinophils Absolute Auto 100 /uL (0-450); Eosinophils Percent Auto 1.2 % (2-4); Hematocrit 29.1 % (36-46); Hemoglobin 9.8 g/dL (12.0-16.0); Lymphocytes Absolute Auto 1500 /uL (1100-4500); Lymphocytes Percent Auto 17.3 % (25-40); Mean Corpuscular HGB Conc 33.7 % (30-36); Mean Corpuscular Volume 94.8 fL (80-100); Monocytes Absolute Auto 500 /uL (0-900); Monocytes Percent Auto 6.1 % (3-14); Neutrophils Absolute Auto 6600 /uL (1500-7000); Neutrophils Percent Auto 74.8 % (50-75); Platelet Count 251 X10^3/uL (150-400); Red Blood Cell Count 3.07 X10^6/uL (4.0-5.2); Red Cell Distribution Width 15.4 % (11.6-14.8); White Blood Cell Count 8.9 X10^3/uL (4.5-11.0)
[2024-07-16 09:23] LABS: INR 1.1 (0.9-1.3); Prothrombin Time 12.8 SECONDS (9.4-12.5)
[2024-07-16 09:26] LABS: PTT Partial Thromboplastin Tim 37 SECONDS (25.1-36.5)
[2024-07-16 09:27] LABS: Alanine Aminotransferase 27 IU/L (<35); Albumin 3.8 g/dL (3.5-5.0); Albumin Globulin Ratio 1.7 (1.0-2.8); Alkaline Phosphatase 63 U/L (38-126); Aspartate Aminotransferase 35 IU/L (14-36); BUN Creatinine Ratio 11.8 (6-22); Bilirubin Total 0.7 mg/dL (0.2-1.3); Blood Urea Nitrogen 15 mg/dL (7-17); Calcium 8.9 mg/dL (8.4-10.2); Carbon Dioxide 20 mmol/L (22-32); Chloride 109 mmol/L (98-107); Estimated Glomerular Filt Rate 44 mL/min (>60); Globulin 2.2 g/dL (1.7-4.1); Glucose 109 mg/dL (80-110); Lipase 72 U/L (23-300); Potassium 4.4 mmol/L (3.4-5.1); Sodium 138 mmol/L (137-145)
[2024-07-16 09:28] LABS: HEMOLYSIS 61 (0-50)
--- NOTE | 2024-07-16 09:38 | DI.CT.S_ITS ---
PROCEDURE: CT ANGIO ABDOMEN PELVIS INDICATIONS: abd pain has been off eliquis (r/o mesenteric ischemia) TECHNIQUE: After the administration of intravenous contrast, 2.5 mm thick sections acquired from the diaphragm to the symphysis. 10 mm maximum-intensity projection (MIP) reformats were then acquired. For radiation dose reduction, the following was used: automated exposure control. COMPARISON: [facility], CT, CT ABDOMEN PELVIS W CON, 07/07/2024, 14:19. FINDINGS: Image Quality: Diagnostic. Abdominal aorta: No aortic aneurysm or evidence of acute aortic syndrome. Mesenteric arteries: Patent without hemodynamically significant stenosis. Renal arteries: Patent without hemodynamically significant stenosis. OTHER: Lower Chest: No significant findings. Liver: No solid mass. Gallbladder: Removed. Biliary ducts: Common bile duct remains mildly prominent likely related to post cholecystectomy sequela and is unchanged. Pancreas: No ductal dilation. Spleen: Size is within normal limits. Adrenal Glands: No adrenal nodules. Kidneys and Ureters: No hydronephrosis. No solid mass. No complex renal cystic lesion which requires follow up. Bilateral renal atrophy. Stomach and Bowel: Normal colonic caliber, without significant wall thickening. Colonic diverticula are present. There is mild thickened appearance of the left colon without inflammatory change. There is overall appearance of luminal narrowing. Peritoneum: No abnormal intraperitoneal fluid. No free air. Ventral Wall: No hernia. Abdominal Nodes: No retroperitoneal or mesenteric adenopathy by size criteria. Vessels: Aorta and inferior vena cava are normal in size. PELVIS: Pelvic Organs: Unremarkable. Bladder: Unremarkable. Pelvic Nodes: No enlarged lymph nodes. Miscellaneous: No inguinal hernias are seen. Bones: No aggressive osseous abnormality. IMPRESSION: Mild appearance of thickening within the left colon. While this can be seen with mesenteric ischemia, this is suspected to be related to incomplete distention given lack of inflammatory change. Dictated by: Lolis Valdez M.D. on 07/16/2024 at 10:26 Approved by: Lolis Valdez M.D. on 07/16/2024 at 10:31
[2024-07-16] MEDS: HYDROMORPHONE 1 MG INJ IV (10:36)
[2024-07-16] MEDS: SODIUM CHLORIDE 0.9% 1,000 ML 500 ML IV (10:36)
--- NOTE | 2024-07-16 10:55 | PC.NURSE ---
Provider placed patient up for discharge. This RN asked if provider would like her to finish her fluids prior to discharge and provider affirmed that he would like fluids complete prior to discharge.
== END 2024-07-16 12:02 | disposition home or self-care (01) ==
PROVIDERS: Emergency Provider Student in an Organized Health Care Education/Training Program; PCP Physician Assistant
DX: R10.9 Unspecified abdominal pain (principal); I48.91 Unspecified atrial fibrillation; Z79.01 Long term (current) use of anticoagulants; R79.89 Other specified abnormal findings of blood chemistry
CPT/HCPCS: 36415; 74174; 80053; 83605; 83690; 85025; 85610; 85730; 86850; 86900; 86901; 96361; 96374; 96375; 99284; J1171; J2270; J2470; Q9967

== ENCOUNTER 2024-10-06 09:47 | Emergency (ER) | payer MEDICARE, OTHER, SELFPAY ==
[2021-06-25 17:33] VITALS: BMI 28.1
[2024-10-06 09:52] VITALS: BP 200/88; PULSE 71; RESP 15; TEMP 36.8; O2SAT 99; BMI 26.6
[2024-10-06 10:39] LABS: Bacteria Urine Few (2-10); Culture Indicated Urine Specimen Cultured; RBC Urine None Seen (0-5/HPF); Squamous Epithelial Cell Urine 5-10 /HPF (0-5/HPF); Urine Volume 4; WBC Urine 1-5/HPF (0-5/HPF)
[2024-10-06 11:35] LABS: Add Manual Diff / Slide Review NO; Basophils Absolute Auto 100 /uL (0-100); Basophils Percent Auto 0.6 % (0-2); Eosinophils Absolute Auto 400 /uL (0-450); Eosinophils Percent Auto 3.8 % (2-4); Hematocrit 48.2 % (36-46); Hemoglobin 15.7 g/dL (12.0-16.0); Lymphocytes Absolute Auto 2000 /uL (1100-4500); Lymphocytes Percent Auto 21.2 % (25-40); Mean Corpuscular HGB Conc 32.5 % (30-36); Mean Corpuscular Hemoglobin 30.5 PG (26-34); Mean Corpuscular Volume 93.9 fL (80-100); Monocytes Absolute Auto 700 /uL (0-900); Monocytes Percent Auto 7.7 % (3-14); Neutrophils Absolute Auto 6300 /uL (1500-7000); Neutrophils Percent Auto 66.7 % (50-75); Platelet Count 237 X10^3/uL (150-400); Red Blood Cell Count 5.13 X10^6/uL (4.0-5.2); Red Cell Distribution Width 14.4 % (11.6-14.8); White Blood Cell Count 9.4 X10^3/uL (4.5-11.0)
[2024-10-06 11:53] LABS: Alanine Aminotransferase 23 IU/L (<35); Albumin 4.6 g/dL (3.5-5.0); Albumin Globulin Ratio 1.7 (1.0-2.8); Alkaline Phosphatase 99 U/L (38-126); Aspartate Aminotransferase 35 IU/L (14-36); BUN Creatinine Ratio 18.1 (6-22); Bilirubin Total 0.4 mg/dL (0.2-1.3); Blood Urea Nitrogen 19 mg/dL (7-17); Calcium 9.6 mg/dL (8.4-10.2); Carbon Dioxide 25 mmol/L (22-32); Chloride 104 mmol/L (98-107); Estimated Glomerular Filt Rate 55 mL/min (>60); Globulin 2.7 g/dL (1.7-4.1); Glucose 109 mg/dL (80-110); HEMOLYSIS 21 (0-50); Lipase 78 U/L (23-300); Potassium 4.3 mmol/L (3.4-5.1); Sodium 137 mmol/L (137-145); Total Protein 7.3 g/dL (6.3-8.2)
[2024-10-06 13:06] VITALS: BP 207/125; PULSE 97; O2SAT 99
--- NOTE | 2024-10-06 13:29 | ED_ITS ---
HPI - General Adult General Chief complaint: Urogenital-Female Stated complaint: poss uti Time Seen by Provider: 10/06/24 13:06 Source: patient Mode of arrival: Ambulatory History of Present Illness HPI narrative: 74-year-old female who is here for evaluation of just over 2 days of dysuria, frequency, urgency and some lower back discomfort. She was having some nausea but no vomiting. Subjective fevers. She has had urinary tract infection in the past it was states this feels similar to that. No change in bowel habits. She does have Pyridium at home. States she has been on amoxicillin in the past for a UTI. Related Data Home Medications Medication Instructions Recorded Confirmed aspirin 81 mg chewable tablet 81 mg PO QAM 07/26/20 07/08/24 atenolol 25 mg tablet 25 mg PO DAILY 06/25/21 07/08/24 levothyroxine 150 mcg tablet 150 mcg PO DAILY 06/25/21 07/08/24 (Synthroid) omega-3 fatty acids-vitamin E 1 cap PO DAILY 06/25/21 07/08/24 1,000 mg capsule apixaban 5 mg tablet (Eliquis) 5 mg PO BID 07/22/21 07/08/24 cholecalciferol (vitamin D3) 50 50 mcg PO DAILY 07/22/21 07/08/24 mcg (2,000 unit) capsule potassium chloride 10 mEq 20 meq PO DAILY 07/22/21 07/08/24 capsule,extended release Previous Rx's Medication Instructions Recorded ondansetron 4 mg disintegrating 4 mg PO Q6-8H PRN nausea and 06/15/22 tablet vomiting #10 tabs isosorbide mononitrate 60 mg 60 mg PO QAM #30 tabs 01/02/24 tablet,extended release 24 hr benzonatate 200 mg capsule 200 mg PO TID PRN cough #30 caps 06/12/24 cyclobenzaprine 10 mg tablet 10 mg PO BID PRN muscle spasm #10 07/08/24 tabs cephalexin 500 mg capsule 500 mg PO BID 5 days #10 caps 10/06/24 Allergies Allergy/AdvReac Type Severity Reaction Status Date / Time lisinopril Allergy Severe Anaphylaxis Verified 07/09/24 11:18 cyclobenzaprine AdvReac Vomiting Verified 07/09/24 11:21 metformin AdvReac Vomiting Verified 07/09/24 11:18 Review of Systems Review of Systems Narrative: See HPI Patient History Medical History UTI (urinary tract infection) Facet arthropathy, lumbar Atrial fibrillation Lumbar radiculopathy Tinnitus Nose fracture (~06/29/21) HLD (hyperlipidemia) Heart murmur Chronic pancreatitis Depression Chronic back pain Breast cancer Migraine headache Hypothyroidism Hypertension Surgical History Hx of tonsillectomy History of colonoscopy Hx of oophorectomy History of hysterectomy Hx of breast surgery Hx of cholecystectomy Family History Father Brain tumor Congestive heart failure Mother Hypertension Stroke Grandfather Stroke Social History household members: spouse Smoking Status: Former smoker alcohol intake: current Smoking Status: Former smoker tobacco type: cigarettes alcohol intake frequency: a few times a month Alcohol type: wine Exam Initial Vital Signs Initial Vital Signs: Vital Signs Temperature 98.2 F 10/06/24 09:52 Pulse Rate 71 10/06/24 09:52 Respiratory Rate 15 10/06/24 09:52 Blood Pressure 200/88 H 10/06/24 09:52 Pulse Oximetry 99 10/06/24 09:52 Oxygen Delivery Method Room Air 10/06/24 09:52 Const General: cooperative, comfortable and No ill appearing HENMT Head: normal to inspection and normocephalic Resp Effort & Inspection: normal respiratory effort Cardio Rate: regular rate Skin General: no rashes or lesions noted Neuro General: patient alert and patient awake Course Orders Ordered: ED Orders 10/06/24 09:45 Urine Culture Stat Urine Microscopic Stat 10/06/24 11:25 Complete Blood Count AUTO DIFF Stat Comprehensive Metabolic Panel Stat Lipase Stat 10/06/24 13:19 Urine Culture Stat Ondansetron HCl (Ondansetron 4 Mg/2 Ml Inj) 4 mg IV NOW PRN PRN Reason: Nausea And Vomiting Ondansetron HCl (Ondansetron 4 Mg Odt) 4 mg SL NOW PRN PRN Reason: Nausea And Vomiting Vital Signs Vital signs: Vital Signs - 8 hr 10/06/24 09:52 10/06/24 13:06 Temperature 98.2 F Pulse Rate 71 97 H Respiratory Rate 15 Blood Pressure 200/88 H 207/125 H Pulse Oximetry 99 99 Oxygen Delivery Method Room Air Room Air Medical Decision Making Medical Records Medical records reviewed: Yes I reviewed the patient's medical records. Lab Data Lab results reviewed: Yes I reviewed the patient's lab results. 10/06/24 11:25 10/06/24 11:25 Labs: Lab Results 10/06/24 10/06/24 Range/Units 09:45 11:25 WBC 9.4 (4.5-11.0) X10^3/uL RBC 5.13 (4.0-5.2) X10^6/uL Hgb 15.7 (12.0-16.0) g/dL Hct 48.2 H (36-46) % MCV 93.9 (80-100) fL MCH 30.5 (26-34) PG MCHC 32.5 (30-36) % RDW 14.4 (11.6-14.8) % Plt Count 237 (150-400) X10^3/uL Neut % (Auto) 66.7 (50-75) % Lymph % (Auto) 21.2 L (25-40) % [place] % (Auto) 7.7 (3-14) % Eos % (Auto) 3.8 (2-4) % Baso % (Auto) 0.6 (0-2) % Neut # (Auto) 6300 (8154-0545) /uL Lymph # (Auto) 2000 (4310-2214) /uL [place] # (Auto) 700 (0-900) /uL Eos # (Auto) 400 (0-450) /uL Baso # (Auto) 100 (0-100) /uL Sodium 137 (137-145) mmol/L Potassium 4.3 (3.4-5.1) mmol/L Chloride 104 (98-107) mmol/L Carbon Dioxide 25 (22-32) mmol/L BUN 19 H (7-17) mg/dL Creatinine 1.05 H (0.52-1.04) mg/dL Estimated GFR 55 L (>60) mL/min BUN/Creatinine Ratio 18.1 (6-22) Glucose 109 (80-110) mg/dL Calcium 9.6 (8.4-10.2) mg/dL Total Bilirubin 0.4 (0.2-1.3) mg/dL AST 35 (14-36) IU/L ALT 23 (<35) IU/L Alkaline Phosphatase 99 (38-126) U/L Total Protein 7.3 (6.3-8.2) g/dL Albumin 4.6 (3.5-5.0) g/dL Globulin 2.7 (1.7-4.1) g/dL Albumin/Globulin Ratio 1.7 (1.0-2.8) Lipase 78 (23-300) U/L Urine RBC None seen (0-5/HPF) Urine WBC 1-5/hpf (0-5/HPF) Ur Squamous Epith Cells 5-10 /hpf H (0-5/HPF) Urine Bacteria Few (2-10) H (None) Ur Culture Indicated? Specimen cultured Vol Urine Centrifuged 4 Urine Dip Bedside Urine Glucose 500 mg/dl Bedside Urine Bilirubin - Negative Bedside Urine Ketone - Negative Urine Specific [place] 1.015 Bedside Urine Occult Blood - Negative Bedside Urine pH 6.0 Bedside Urine Protein - Negative Bedside Urine Urobilinogen - Negative Bedside Urine Nitrite - Negative Bedside Urine Leukocytes + 70 Esterase Point of care testing: Urine Dip Bedside Urine Glucose 500 mg/dl Bedside Urine Bilirubin - Negative Bedside Urine Ketone - Negative Urine Specific [place] 1.015 Bedside Urine Occult Blood - Negative Bedside Urine pH 6.0 Bedside Urine Protein - Negative Bedside Urine Urobilinogen - Negative Bedside Urine Nitrite - Negative Bedside Urine Leukocytes + 70 Esterase MDM Narrative Medical decision making narrative: Review of the medical record shows that 2 years ago she had a urinalysis that had a pansensitive E coli. Her symptoms today are consistent with a UTI. She does have bacteria but also epi cells on the urinalysis. Because of her symptoms will treat with antibiotics. Urine culture was pending. Antibiotic sent to the pharmacy of her choice. We will choose [facility] today. She was given return precautions. She expressed understanding and agreement. Discharge Plan Departure Patient Disposition: Home Clinical Impression: Urinary tract infection Instructions: DI for Urinary Tract Infection (UTI) Activity Restrictions/Additional Instructions: Take the antibiotics as directed. There is a urine culture pending at the time of your discharge and we will contact you if we need to start antibiotics based on this. Return to the emergency department for new symptoms. Prescriptions: New cephalexin 500 mg capsule 500 mg PO BID 5 Days Qty: 10 0RF No Action cyclobenzaprine 10 mg tablet 10 mg PO BID PRN (Reason: muscle spasm) Qty: 10 0RF Rx Instructions: Cautioned with operating machinery, may cause sedation. aspirin 81 mg Tablet,Chewable 81 mg PO QAM ondansetron 4 mg tablet,disintegrating 4 mg PO Q6-8H PRN (Reason: nausea and vomiting) Qty: 10 0RF atenolol 25 mg Tablet 25 mg PO DAILY levothyroxine [Synthroid] 150 mcg Tablet 150 mcg PO DAILY omega-3 fatty acids-vitamin E 1,000 mg Capsule 1 cap PO DAILY isosorbide mononitrate 60 mg tablet extended release 24 hr 60 mg PO QAM Qty: 30 0RF benzonatate 200 mg capsule 200 mg PO TID PRN (Reason: cough) Qty: 30 0RF potassium chloride 10 mEq capsule, extended release 20 meq PO DAILY cholecalciferol (vitamin D3) 50 mcg (2,000 unit) capsule 50 mcg PO DAILY Eliquis 5 mg tablet 5 mg PO BID Referrals: Yuli Lang PA-C [Primary Care Provider] - Stand Alone Forms: Patient Portal/API/Survey
--- NOTE | 2024-10-06 13:47 | PC.NURSE ---
was brought from waiting area to rm [address]. [address] Osuna and DC'd without RN involvement.
== END 2024-10-06 13:48 | disposition home or self-care (01) ==
PROVIDERS: Emergency Provider Emergency Medicine; PCP Physician Assistant
DX: N39.0 Urinary tract infection, site not specified (principal)
CPT/HCPCS: 36415; 80053; 81003; 81015; 83690; 85025; 87086; 99283

== ENCOUNTER 2024-10-27 14:08 | Emergency (ER) | payer MEDICARE, OTHER, SELFPAY ==
[2021-06-25 17:33] VITALS: BMI 28.1
[2024-10-27 14:15] VITALS: BP 140/87; PULSE 75; RESP 16; TEMP 36.5; O2SAT 100; BMI 26.6
--- NOTE | 2024-10-27 14:23 | ED_ITS ---
HPI - Headache <Pippa Ortez PA-C - Last Filed: 10/27/24 15:55> General Chief Complaint: Headache Stated Complaint: migraine started 3 days ago Time Seen by Provider: 10/27/24 14:18 Mode of arrival: Ambulatory History of Present Illness HPI Narrative: Ms. Javed is a 74-year-old female with a past medical history of atrial fibrillation on Eliquis, migraine headaches, hypothyroidism, lumbar radiculopathy who presents to the emergency department for a migraine headache x3 days. Patient states every few months she occasionally gets migraine headaches and this 1 feels exactly the same as priors. Describes it as a pressure sensation on the right side of her forehead. She recently saw her PCP for these migraines and was started on rizatriptan which she has taken without relief of symptoms. Describes pain as a pressure/6/10 associated with nausea and an episode of nonbloody vomiting. No visual disturbance dizziness or balance issues. No fevers, chills, neck pain. Denies any trauma to the head or falls. She is accompanied by her who contributes to the history. Related Data Home Medications Medication Instructions Recorded Confirmed aspirin 81 mg chewable tablet 81 mg PO QAM 07/26/20 07/08/24 atenolol 25 mg tablet 25 mg PO DAILY 06/25/21 07/08/24 levothyroxine 150 mcg tablet 150 mcg PO DAILY 06/25/21 07/08/24 (Synthroid) omega-3 fatty acids-vitamin E 1 cap PO DAILY 06/25/21 07/08/24 1,000 mg capsule apixaban 5 mg tablet (Eliquis) 5 mg PO BID 07/22/21 07/08/24 cholecalciferol (vitamin D3) 50 50 mcg PO DAILY 07/22/21 07/08/24 mcg (2,000 unit) capsule potassium chloride 10 mEq 20 meq PO DAILY 07/22/21 07/08/24 capsule,extended release Previous Rx's Medication Instructions Recorded ondansetron 4 mg disintegrating 4 mg PO Q6-8H PRN nausea and 06/15/22 tablet vomiting #10 tabs isosorbide mononitrate 60 mg 60 mg PO QAM #30 tabs 01/02/24 tablet,extended release 24 hr benzonatate 200 mg capsule 200 mg PO TID PRN cough #30 caps 06/12/24 cyclobenzaprine 10 mg tablet 10 mg PO BID PRN muscle spasm #10 07/08/24 tabs Allergies Allergy/AdvReac Type Severity Reaction Status Date / Time lisinopril Allergy Severe Anaphylaxis Verified 10/27/24 14:15 cyclobenzaprine AdvReac Vomiting Verified 10/27/24 14:15 metformin AdvReac Vomiting Verified 10/27/24 14:15 Review of Systems <Pippa Ortez PA-C - Last Filed: 10/27/24 15:55> Review of Systems ROS Unobtainable: All systems reviewed & are unremarkable except as noted in HPI and below Patient History <Pippa Ortez PA-C - Last Filed: 10/27/24 15:55> Medical History UTI (urinary tract infection) Facet arthropathy, lumbar Atrial fibrillation Lumbar radiculopathy Tinnitus Nose fracture (~06/29/21) HLD (hyperlipidemia) Heart murmur Chronic pancreatitis Depression Chronic back pain Breast cancer Migraine headache Hypothyroidism Hypertension Surgical History Hx of tonsillectomy History of colonoscopy Hx of oophorectomy History of hysterectomy Hx of breast surgery Hx of cholecystectomy Family History Father Brain tumor Congestive heart failure Mother Hypertension Stroke Grandfather Stroke Social History household members: spouse Smoking Status: Former smoker alcohol intake: current Smoking Status: Former smoker tobacco type: cigarettes alcohol intake frequency: a few times a month Alcohol type: wine Exam <Pippa Ortez PA-C - Last Filed: 10/27/24 15:55> Narrative Exam Narrative: GENERAL: 74 year old patient appears stated age. Well-developed patient, in no acute distress. HEAD: Atraumatic. Normocephalic. Nontender temples bilaterally. EYES: PERRL. Extraocular motions intact. No scleral icterus. No injection or drainage. ENT: Nose without bleeding, purulent drainage. NECK: Trachea midline. Cervical ROM intact. Negative meningeal signs. CARDIOVASCULAR: Regular rate RESPIRATORY: ?Nonlabored respirations. ?Speaking in clear, full sentences. EXTREMITIES: No edema or joint tenderness. NEURO: AOx3. ?Clear speech. ?Moves all 4 extremities appropriately. No facial asymmetry. Sensation intact to light touch throughout the upper and lower extremities and face. Normal FNF, heel-naranjo. SKIN: No rash or erythema of visible areas Initial Vital Signs Initial Vital Signs: Vital Signs Temperature 97.7 F 10/27/24 14:15 Pulse Rate 75 10/27/24 14:15 Respiratory Rate 16 10/27/24 14:15 Blood Pressure 140/87 10/27/24 14:15 Pulse Oximetry 100 10/27/24 14:15 Oxygen Delivery Method Room Air 10/27/24 14:15 <Lita Reyes MD - Last Filed: 10/27/24 16:13> Initial Vital Signs Initial Vital Signs: Vital Signs Temperature 97.7 F 10/27/24 14:15 Pulse Rate 75 10/27/24 14:15 Respiratory Rate 16 10/27/24 14:15 Blood Pressure 140/87 10/27/24 14:15 Pulse Oximetry 100 10/27/24 14:15 Oxygen Delivery Method Room Air 10/27/24 14:15 Course <Pippa Ortez PA-C - Last Filed: 10/27/24 15:55> Orders Ordered: ED Orders 10/27/24 14:50 CBC Auto Diff [Complete Blood Count AUTO DIFF] Stat CMP [Comprehensive Metabolic Panel] Stat Discontinued Medications Acetaminophen (Acetaminophen 325 Mg Tablet) 975 mg PO NOW ONE Stop: 10/27/24 14:34 Last Admin: 10/27/24 14:55 Dose: 975 mg Documented By: VARUN Dexamethasone (Dexamethasone 10 Mg/Ml Vial) 10 mg IV NOW ONE Stop: 10/27/24 14:34 Last Admin: 10/27/24 14:56 Dose: 10 mg Documented By: VARUN Diphenhydramine HCl (Diphenhydramine 50 Mg/Ml Vial) 25 mg IV NOW ONE Stop: 10/27/24 14:34 Last Admin: 10/27/24 14:58 Dose: 25 mg Documented By: VARUN Sodium Chloride (Normal Saline 0.9%) 1,000 mls @ 1,000 mls/hr IV BOLUS ONE Stop: 10/27/24 15:32 Last Infusion: 10/27/24 15:50 Dose: Infused Documented By: Admin: 10/27/24 14:55 Dose: 1,000 mls/hr Documented By: VARUN Metoclopramide HCl (Metoclopramide 10 Mg/2 Ml Inj) 10 mg IV NOW ONE Stop: 10/27/24 14:34 Last Admin: 10/27/24 15:00 Dose: 10 mg Documented By: VARUN Vital Signs Vital signs: Vital Signs - 8 hr 10/27/24 14:15 10/27/24 14:53 10/27/24 15:00 Temperature 97.7 F Pulse Rate 75 88 97 H Respiratory Rate 16 Blood Pressure 140/87 139/88 146/95 H Pulse Oximetry 100 98 98 Oxygen Delivery Method Room Air 10/27/24 15:30 Temperature Pulse Rate 92 H Respiratory Rate 16 Blood Pressure 147/100 H Pulse Oximetry 100 Oxygen Delivery Method Room Air <Lita Reyes MD - Last Filed: 10/27/24 16:13> Orders Ordered: ED Orders 10/27/24 14:50 CBC Auto Diff [Complete Blood Count AUTO DIFF] Stat CMP [Comprehensive Metabolic Panel] Stat Discontinued Medications Acetaminophen (Acetaminophen 325 Mg Tablet) 975 mg PO NOW ONE Stop: 10/27/24 14:34 Last Admin: 10/27/24 14:55 Dose: 975 mg Documented By: VARUN Dexamethasone (Dexamethasone 10 Mg/Ml Vial) 10 mg IV NOW ONE Stop: 10/27/24 14:34 Last Admin: 10/27/24 14:56 Dose: 10 mg Documented By: VARUN Diphenhydramine HCl (Diphenhydramine 50 Mg/Ml Vial) 25 mg IV NOW ONE Stop: 10/27/24 14:34 Last Admin: 10/27/24 14:58 Dose: 25 mg Documented By: VARUN Sodium Chloride (Normal Saline 0.9%) 1,000 mls @ 1,000 mls/hr IV BOLUS ONE Stop: 10/27/24 15:32 Last Infusion: 10/27/24 15:50 Dose: Infused Documented By: Admin: 10/27/24 14:55 Dose: 1,000 mls/hr Documented By: VARUN Metoclopramide HCl (Metoclopramide 10 Mg/2 Ml Inj) 10 mg IV NOW ONE Stop: 10/27/24 14:34 Last Admin: 10/27/24 15:00 Dose: 10 mg Documented By: VARUN Vital Signs Vital signs: Vital Signs - 8 hr 10/27/24 14:15 10/27/24 14:53 10/27/24 15:00 Temperature 97.7 F Pulse Rate 75 88 97 H Respiratory Rate 16 Blood Pressure 140/87 139/88 146/95 H Pulse Oximetry 100 98 98 Oxygen Delivery Method Room Air 10/27/24 15:30 Temperature Pulse Rate 92 H Respiratory Rate 16 Blood Pressure 147/100 H Pulse Oximetry 100 Oxygen Delivery Method Room Air MDM - Headache <Pippa Ortez PA-C - Last Filed: 10/27/24 15:55> Medical Records Attestation: I reviewed the patient's medical records. Lab Data 10/27/24 14:50 10/27/24 14:50 Labs: Lab Results 10/27/24 Range/Units 14:50 WBC 7.8 (4.5-11.0) X10^3/uL RBC 5.56 H (4.0-5.2) X10^6/uL Hgb 16.7 H (12.0-16.0) g/dL Hct 50.9 H (36-46) % MCV 91.5 (80-100) fL MCH 30.0 (26-34) PG MCHC 32.8 (30-36) % RDW 14.9 H (11.6-14.8) % Plt Count 242 (150-400) X10^3/uL Neut % (Auto) 59.5 (50-75) % Lymph % (Auto) 24.2 L (25-40) % [place] % (Auto) 13.8 (3-14) % Eos % (Auto) 1.7 L (2-4) % Baso % (Auto) 0.8 (0-2) % Neut # (Auto) 4600 (7921-7592) /uL Lymph # (Auto) 1900 (1030-4519) /uL [place] # (Auto) 1100 H (0-900) /uL Eos # (Auto) 100 (0-450) /uL Baso # (Auto) 100 (0-100) /uL Sodium 137 (137-145) mmol/L Potassium 4.5 (3.4-5.1) mmol/L Chloride 105 (98-107) mmol/L Carbon Dioxide 22 (22-32) mmol/L BUN 17 (7-17) mg/dL Creatinine 1.09 H (0.52-1.04) mg/dL Estimated GFR 53 L (>60) mL/min BUN/Creatinine Ratio 15.6 (6-22) Glucose 103 (80-110) mg/dL Calcium 9.9 (8.4-10.2) mg/dL Total Bilirubin 0.7 (0.2-1.3) mg/dL AST 38 H (14-36) IU/L ALT 26 (<35) IU/L Alkaline Phosphatase 97 (38-126) U/L Total Protein 7.4 (6.3-8.2) g/dL Albumin 4.6 (3.5-5.0) g/dL Globulin 2.8 (1.7-4.1) g/dL Albumin/Globulin Ratio 1.6 (1.0-2.8) MDM Narrative Medical decision making narrative: 74-year-old female with a past medical history of atrial fibrillation on Eliquis, migraine headaches, hypothyroidism, lumbar radiculopathy who presents to the emergency department for a migraine headache x3 days. Differential diagnosis includes but is not limited to migraine headache, tension headache, cluster headache,, sinusitis, etc. On exam the patient is in no acute distress, nontoxic-appearing, all vital signs within normal limits. She has no focal neurologic deficits and describes a right-sided migraine headache that is identical to prior headaches, no trauma to the head or falls. No sudden onset or worst YUN of life. No fevers or neck rigidity. Extensive review reveals numerous emergency department visits with multiple visits 1 year ago for similar migraine headache. Chart review reveals pt typically only responds to dilaudid. Prior head CT showed right maxillary sinus disease. At this time history and physical exam did not reveal need for emergent head imaging. We will obtain baseline labs and treat with IV migraine cocktail including Reglan, Benadryl, fluids and oral acetaminophen, Decadron to prevent rebound migraine. We will avoid NSAIDs at this time as patient is on anticoagulation. Labs reveal normal WBC count 7.8. Patient does have elevated RBC 5.56, hemoglobin 16.7, hematocrit 50.9. Creatinine 1.09 with a GFR of 53, so this appears to be around the patient's baseline. Patient reports after initial headache cocktail treatment her nausea has resolved however her pain is still a 6/10. Recommended 4% intranasal lidocaine on the ipsilateral side of migraine in addition to obtaining CT scan of the head without contrast to rule out any other pathology. Case discussed with the attending physician. Patient refuses head CT scan and intranasal lidocaine. Insert the only medication she wants hours Dilaudid however we did discuss that this medication very short-acting not appropriate at this time. Patient would like to go home without any other medications or workup at this time. She is ambulatory and neurologically intact. She is stable for discharge home. <Lita Reyes MD - Last Filed: 10/27/24 16:13> Lab Data Labs: Lab Results 10/27/24 Range/Units 14:50 WBC 7.8 (4.5-11.0) X10^3/uL RBC 5.56 H (4.0-5.2) X10^6/uL Hgb 16.7 H (12.0-16.0) g/dL Hct 50.9 H (36-46) % MCV 91.5 (80-100) fL MCH 30.0 (26-34) PG MCHC 32.8 (30-36) % RDW 14.9 H (11.6-14.8) % Plt Count 242 (150-400) X10^3/uL Neut % (Auto) 59.5 (50-75) % Lymph % (Auto) 24.2 L (25-40) % [place] % (Auto) 13.8 (3-14) % Eos % (Auto) 1.7 L (2-4) % Baso % (Auto) 0.8 (0-2) % Neut # (Auto) 4600 (5789-9959) /uL Lymph # (Auto) 1900 (9063-5174) /uL [place] # (Auto) 1100 H (0-900) /uL Eos # (Auto) 100 (0-450) /uL Baso # (Auto) 100 (0-100) /uL Sodium 137 (137-145) mmol/L Potassium 4.5 (3.4-5.1) mmol/L Chloride 105 (98-107) mmol/L Carbon Dioxide 22 (22-32) mmol/L BUN 17 (7-17) mg/dL Creatinine 1.09 H (0.52-1.04) mg/dL Estimated GFR 53 L (>60) mL/min BUN/Creatinine Ratio 15.6 (6-22) Glucose 103 (80-110) mg/dL Calcium 9.9 (8.4-10.2) mg/dL Total Bilirubin 0.7 (0.2-1.3) mg/dL AST 38 H (14-36) IU/L ALT 26 (<35) IU/L Alkaline Phosphatase 97 (38-126) U/L Total Protein 7.4 (6.3-8.2) g/dL Albumin 4.6 (3.5-5.0) g/dL Globulin 2.8 (1.7-4.1) g/dL Albumin/Globulin Ratio 1.6 (1.0-2.8) Discharge Plan Departure Patient Disposition: Home Clinical Impression: Migraine Qualifiers: Migraine type: unspecified Status migrainosus presence: without status migrainosus Intractability: intractable Qualified Code(s): G43.919 - Migraine, unspecified, intractable, without status migrainosus Instructions: DI for Migraine Activity Restrictions/Additional Instructions: Dear Ms. Javed, Thank you for coming into the emergency department today. You were evaluated for migraine headache. You were treated with IV medications for migraine. You declined to have any head imaging performed today and dry intranasal lidocaine. I am glad we could help with your nausea but I am sorry that could not completely resolve your migraine. Please rest, use acetaminophen in your home migraine prescriptions as needed. Return to the emergency department with any worsening symptoms or other concerns. Please follow up with your primary care doctor and your neurologist as scheduled. Please follow up with your primary care doctor within the next 2-3 days for ER follow-up. (If you do not have a PCP you can call [phone]. ?to schedule an appointment with an [facility] Primary Care Provider) IF YOU DEVELOP ANY NEW OR WORSENING SYMPTOMS, RETURN TO THE ER! Please read the attached instructions, they highlight more specific treatments and interventions for you at home. Thank you for letting me participate in your care, Pippa Ortez PA-C Prescriptions: No Action cyclobenzaprine 10 mg tablet 10 mg PO BID PRN (Reason: muscle spasm) Qty: 10 0RF Rx Instructions: Cautioned with operating machinery, may cause sedation. aspirin 81 mg Tablet,Chewable 81 mg PO QAM ondansetron 4 mg tablet,disintegrating 4 mg PO Q6-8H PRN (Reason: nausea and vomiting) Qty: 10 0RF atenolol 25 mg Tablet 25 mg PO DAILY levothyroxine [Synthroid] 150 mcg Tablet 150 mcg PO DAILY omega-3 fatty acids-vitamin E 1,000 mg Capsule 1 cap PO DAILY isosorbide mononitrate 60 mg tablet extended release 24 hr 60 mg PO QAM Qty: 30 0RF benzonatate 200 mg capsule 200 mg PO TID PRN (Reason: cough) Qty: 30 0RF potassium chloride 10 mEq capsule, extended release 20 meq PO DAILY cholecalciferol (vitamin D3) 50 mcg (2,000 unit) capsule 50 mcg PO DAILY Eliquis 5 mg tablet 5 mg PO BID Referrals: Yuli Lang PA-C [Primary Care Provider] - Stand Alone Forms: Patient Portal/API/Survey ED Sign-out <Lita Reyes MD - Last Filed: 10/27/24 16:13> Cosign ED Attending Cosignature Attestation: I did not see this patient. I was available all times for consultation.
[2024-10-27 14:53] VITALS: BP 139/88; PULSE 88; O2SAT 98
[2024-10-27] MEDS: SODIUM CHLORIDE 0.9% 1,000 ML 1000 ML IV (14:55)
[2024-10-27] MEDS: ACETAMINOPHEN 325 MG TABLET 975 MG PO (14:55)
[2024-10-27] MEDS: DEXAMETHASONE 10 MG/ML VIAL IV (14:56)
[2024-10-27] MEDS: diphenhydrAMINE 50 MG/ML VIAL 25 MG IV (14:58)
[2024-10-27 15:00] VITALS: BP 146/95; PULSE 97; O2SAT 98
[2024-10-27] MEDS: METOCLOPRAMIDE 10 MG/2 ML INJ IV (15:00)
[2024-10-27 15:06] LABS: Add Manual Diff / Slide Review NO; Basophils Absolute Auto 100 /uL (0-100); Basophils Percent Auto 0.8 % (0-2); Eosinophils Absolute Auto 100 /uL (0-450); Eosinophils Percent Auto 1.7 % (2-4); Hematocrit 50.9 % (36-46); Hemoglobin 16.7 g/dL (12.0-16.0); Lymphocytes Absolute Auto 1900 /uL (1100-4500); Lymphocytes Percent Auto 24.2 % (25-40); Mean Corpuscular HGB Conc 32.8 % (30-36); Mean Corpuscular Volume 91.5 fL (80-100); Monocytes Absolute Auto 1100 /uL (0-900); Monocytes Percent Auto 13.8 % (3-14); Neutrophils Absolute Auto 4600 /uL (1500-7000); Neutrophils Percent Auto 59.5 % (50-75); Platelet Count 242 X10^3/uL (150-400); Red Blood Cell Count 5.56 X10^6/uL (4.0-5.2); Red Cell Distribution Width 14.9 % (11.6-14.8); White Blood Cell Count 7.8 X10^3/uL (4.5-11.0)
[2024-10-27 15:11] LABS: Alanine Aminotransferase 26 IU/L (<35); Albumin 4.6 g/dL (3.5-5.0); Albumin Globulin Ratio 1.6 (1.0-2.8); Alkaline Phosphatase 97 U/L (38-126); Aspartate Aminotransferase 38 IU/L (14-36); BUN Creatinine Ratio 15.6 (6-22); Bilirubin Total 0.7 mg/dL (0.2-1.3); Blood Urea Nitrogen 17 mg/dL (7-17); Calcium 9.9 mg/dL (8.4-10.2); Carbon Dioxide 22 mmol/L (22-32); Chloride 105 mmol/L (98-107); Estimated Glomerular Filt Rate 53 mL/min (>60); Globulin 2.8 g/dL (1.7-4.1); Glucose 103 mg/dL (80-110); HEMOLYSIS 19 (0-50); Potassium 4.5 mmol/L (3.4-5.1); Sodium 137 mmol/L (137-145); Total Protein 7.4 g/dL (6.3-8.2)
[2024-10-27 15:30] VITALS: BP 147/100; PULSE 92; RESP 16; O2SAT 100
== END 2024-10-27 16:01 | disposition home or self-care (01) ==
PROVIDERS: Emergency Provider Physician Assistant; PCP Physician Assistant
DX: G43.919 Migraine, unspecified, intractable, without status migrainosus (principal); I48.91 Unspecified atrial fibrillation; Z79.01 Long term (current) use of anticoagulants; E03.9 Hypothyroidism, unspecified; M54.16 Radiculopathy, lumbar region; E78.5 Hyperlipidemia, unspecified; I10 Essential (primary) hypertension
CPT/HCPCS: 36415; 80053; 85025; 96361; 96374; 96375; 99284; J1100; J1200; J2765

== ENCOUNTER 2024-10-28 11:28 | Emergency (ER) | payer MEDICARE, OTHER, SELFPAY ==
[2021-06-25 17:33] VITALS: BMI 28.1
[2024-10-28 11:33] VITALS: BP 155/98; PULSE 63; RESP 17; TEMP 36.7; O2SAT 99; BMI 26.6
--- NOTE | 2024-10-28 12:01 | PC.NURSE ---
[facility]. Patient was not located in lobby. Registration staff stated patient left. Registration staff informed patient that she was just assigned an exam room and that nursing staff would be out to get her very soon, but that patient responded that she would rather go home. Patient removed from tracker as a LWBS after triage.
== END 2024-10-28 12:04 | disposition left against medical advice (07) ==
PROVIDERS: Emergency Provider Physician Assistant; PCP Physician Assistant
CPT/HCPCS: 99281

== ENCOUNTER 2025-04-24 11:52 | Emergency (ER) | payer MEDICARE, OTHER, SELFPAY ==
[2021-06-25 17:33] VITALS: BMI 28.1
[2025-04-24 11:54] VITALS: BP 156/79; PULSE 85; RESP 18; TEMP 37.2; O2SAT 99; BMI 27.3
--- NOTE | 2025-04-24 12:18 | ED.FEMALEGU ---
HPI - Female Genitourinary General Chief complaint: Urogenital-Female Stated complaint: possible UTI Time Seen by Provider: 04/24/25 12:14 Source: patient Mode of arrival: Ambulatory History of Present Illness HPI Narrative: Ms. Javed is a 74-year-old female with a past medical history of atrial fibrillation on Eliquis, migraine headaches, lumbar radiculopathy, hypothyroidism, frequent UTIs who presents to the emergency department for concern of ?possible UTI? x1 days. Patient states last week she went to a walk-in clinic on Tuesday and was prescribed Keflex for urinary tract infection however she was unable to complete these antibiotics due to them making her feel nauseous. One days ago she started having right-sided low back pain and UTI symptoms again so she is concerned that she continues to have a urine infection. On May 15 she has a cystoscopy scheduled for further evaluation of her frequent UTIs. She took Tylenol early this morning which helped with the pain temporarily. No fevers, chills, vomiting, hematuria, hx of diabetes. She does not have access to urine culture results from the walk-in clinic. Related Data Home Medications ?Medication ?Instructions ?Recorded ?Confirmed aspirin 81 mg chewable tablet 81 mg PO QAM 07/26/20 07/08/24 atenolol 25 mg tablet 25 mg PO DAILY 06/25/21 07/08/24 levothyroxine 150 mcg tablet 150 mcg PO DAILY 06/25/21 07/08/24 (Synthroid) omega-3 fatty acids-vitamin E 1 cap PO DAILY 06/25/21 07/08/24 1,000 mg capsule apixaban 5 mg tablet (Eliquis) 5 mg PO BID 07/22/21 07/08/24 cholecalciferol (vitamin D3) 50 50 mcg PO DAILY 07/22/21 07/08/24 mcg (2,000 unit) capsule potassium chloride 10 mEq 20 meq PO DAILY 07/22/21 07/08/24 capsule,extended release Previous Rx's ?Medication ?Instructions ?Recorded ondansetron 4 mg disintegrating 4 mg PO Q6-8H PRN nausea and 06/15/22 tablet vomiting #10 tabs isosorbide mononitrate 60 mg 60 mg PO QAM #30 tabs 01/02/24 tablet,extended release 24 hr benzonatate 200 mg capsule 200 mg PO TID PRN cough #30 caps 06/12/24 cyclobenzaprine 10 mg tablet 10 mg PO BID PRN muscle spasm #10 07/08/24 tabs Allergies Allergy/AdvReac Type Severity Reaction Status Date / Time lisinopril Allergy Severe Anaphylaxis Verified 10/28/24 11:33 cephalexin AdvReac Intermediate Weakness Verified 04/24/25 11:55 cyclobenzaprine AdvReac Vomiting Verified 10/28/24 11:33 metformin AdvReac Vomiting Verified 10/28/24 11:33 Review of Systems Review of Systems ROS Unobtainable: All systems reviewed & are unremarkable except as noted in HPI and below Patient History Medical History UTI (urinary tract infection) Facet arthropathy, lumbar Atrial fibrillation Lumbar radiculopathy Tinnitus Nose fracture (~06/29/21) HLD (hyperlipidemia) Heart murmur Chronic pancreatitis Depression Chronic back pain Breast cancer Migraine headache Hypothyroidism Hypertension Surgical History Hx of tonsillectomy History of colonoscopy Hx of oophorectomy History of hysterectomy Hx of breast surgery Hx of cholecystectomy Family History Father Brain tumor Congestive heart failure Mother Hypertension Stroke Grandfather Stroke tobacco type: cigarettes Alcohol type: wine Exam Narrative Exam Narrative: GENERAL: 74 year old patient appears stated age. Well-developed patient, in no acute distress. HEAD: Atraumatic. Normocephalic. EYES: Extraocular motions intact. No scleral icterus. No injection or drainage. NECK: Trachea midline. Cervical ROM intact. CARDIOVASCULAR: Regular rate RESPIRATORY: ?Nonlabored respirations. ?Speaking in clear, full sentences. ?? GASTROINTESTINAL: Abdomen soft, non-tender, nondistended. Bs present. EXTREMITIES: No edema or joint tenderness. BACK: No CV tenderness BL. NEURO: AOx3. ?Clear speech. ?Moves all 4 extremities appropriately. SKIN: No rash or erythema of visible areas Initial Vital Signs Initial Vital Signs: Vital Signs Temperature 98.9 F 04/24/25 11:54 Pulse Rate 85 04/24/25 11:54 Respiratory Rate 18 04/24/25 11:54 Blood Pressure 156/79 H 04/24/25 11:54 Pulse Oximetry 99 04/24/25 11:54 Oxygen Delivery Method Room Air 04/24/25 11:54 Course Orders Ordered: ED Orders 04/24/25 12:00 Urine Microscopic Stat 04/24/25 12:53 CBC Auto Diff [Complete Blood Count AUTO DIFF] Stat Magnesium Stat 04/24/25 13:53 CMP [Comprehensive Metabolic Panel] Stat 04/24/25 14:41 CT abdomen pelvis w con Stat Discontinued Medications Sodium Chloride (Normal Saline 0.9%) 1,000 mls @ 1,000 mls/hr IV BOLUS ONE Stop: 04/24/25 13:27 Last Infusion: 04/24/25 14:36 Dose: Infused Documented By: Admin: 04/24/25 13:07 Dose: 1,000 mls/hr Documented By: NATE Ondansetron HCl (Ondansetron 4 Mg/2 Ml Inj) 4 mg IV NOW ONE Stop: 04/24/25 12:29 Last Admin: 04/24/25 13:07 Dose: 4 mg Documented By: NATE Vital Signs Vital signs: Vital Signs - 8 hr 04/24/25 11:54 04/24/25 17:00 Temperature 98.9 F Pulse Rate 85 72 Respiratory Rate 18 18 Blood Pressure 156/79 H 172/85 H Pulse Oximetry 99 99 Oxygen Delivery Method Room Air Room Air MDM - Female Genitourinary Medical Records Attestation: I reviewed the patient's medical records. Lab Data 04/24/25 12:53 04/24/25 13:53 Labs: Lab Results 04/24/25 04/24/25 04/24/25 Range/Units 12:00 12:53 13:53 WBC 8.5 (4.5-11.0) X10^3/uL RBC 5.76 H (4.0-5.2) X10^6/uL Hgb 18.0 H (12.0-16.0) g/dL Hct 52.8 H (36-46) % MCV 91.6 (80-100) fL MCH 31.3 (26-34) PG MCHC 34.1 (30-36) % RDW 15.3 H (11.6-14.8) % Plt Count 193 (150-400) X10^3/uL Neut % (Auto) 70.0 (50-75) % Lymph % (Auto) 20.7 L (25-40) % Merrick % (Auto) 7.7 (3-14) % Eos % (Auto) 0.8 L (2-4) % Baso % (Auto) 0.8 (0-2) % Neut # (Auto) 5900 (8880-8448) /uL Lymph # (Auto) 1800 (0071-1022) /uL Merrick # (Auto) 700 (0-900) /uL Eos # (Auto) 100 (0-450) /uL Baso # (Auto) 100 (0-100) /uL Sodium 138 (137-145) mmol/L Potassium 4.6 (3.4-5.1) mmol/L Chloride 107 (98-107) mmol/L Carbon Dioxide 21 L (22-32) mmol/L BUN 17 (7-17) mg/dL Creatinine 0.93 (0.52-1.04) mg/dL Estimated GFR > 60 (>60) mL/min BUN/Creatinine Ratio 18.3 (6-22) Glucose 88 (70-99) mg/dL Calcium 8.9 (8.4-10.2) mg/dL Magnesium 1.9 (1.6-2.3) mg/dL Total Bilirubin 1.1 (0.2-1.3) mg/dL AST 40 H (14-36) IU/L ALT 30 (<35) IU/L Alkaline Phosphatase 88 (38-126) U/L Total Protein 6.6 (6.3-8.2) g/dL Albumin 4.0 (3.5-5.0) g/dL Globulin 2.6 (1.7-4.1) g/dL Albumin/Globulin Ratio 1.5 (1.0-2.8) Urine RBC None seen (0-5/HPF) Urine WBC None seen (0-5/HPF) Ur Squamous Epith Cells 1-5 /hpf (0-5/HPF) Urine Bacteria None seen (None) Ur Culture Indicated? Cult not indicated Vol Urine Centrifuged 10ml (spun) Urine Dip Bedside Urine Glucose 1000 mg/dl Bedside Urine Bilirubin - Negative Bedside Urine Ketone +/- 5 Urine Specific Brainard 1.020 Bedside Urine Occult Blood - Negative Bedside Urine pH 5.5 Bedside Urine Protein - Negative Bedside Urine Urobilinogen - Negative Bedside Urine Nitrite - Negative Bedside Urine Leukocytes - Negative Esterase Imaging Data CT scan - abdomen/pelvis: Radiologist's Impression: PROCEDURE: CT ABDOMEN PELVIS W CON INDICATIONS: R flank pain; recent UTI TECHNIQUE: After the administration of intravenous contrast, axial sections acquired from the lung bases to the pubic symphysis. Coronal and sagittal reformats were performed. For radiation dose reduction, the following was used: automated exposure control, adjustment of mA and/or kV according to patient size. COMPARISON: Located Within [facility], CT, CT ABDOMEN PELVIS W CON, 06/24/2021, 20:32. Located Within [facility], CT, CT ABDOMEN PELVIS W CON, 07/07/2024, 14:19. FINDINGS: Image quality: Diagnostic. Lower Chest: No pleural effusion. Probable tiny hiatal hernia. ABDOMEN: Liver: No solid mass. Gallbladder: Absent. Biliary ducts: No biliary dilation. Pancreas: No ductal dilation. No peripancreatic fluid collection. Spleen: Size is within normal limits. Adrenal Glands: No adrenal nodules. Kidneys and Ureters: No hydronephrosis. No striated nephrogram. No perinephric fluid. No hydroureter. No solid mass. Left mid kidney complicated cyst measuring 1.1 cm, (2/43), unchanged. Stomach and Bowel: Normal colonic caliber, without significant wall thickening. The appendix is not seen. Peritoneum: No abnormal intraperitoneal fluid. No free air. Ventral Wall: No significant ventral hernia. Abdominal Nodes: No retroperitoneal or mesenteric adenopathy by size criteria. Vessels: Aorta and inferior vena cava are normal in size. PELVIS: Pelvic Organs: Uterus is absent. Bladder: No bladder wall thickening. No stone. Pelvic Nodes: No enlarged lymph nodes. Miscellaneous: No inguinal hernias are seen. Bones: No aggressive osseous abnormality. IMPRESSION: No acute abnormality identified. No hydronephrosis. No free fluid. Dictated by: Uriel Simmons M.D. on 04/24/2025 at 15:47 Approved by: Uriel Simmons M.D. on 04/24/2025 at 16:00 [facility] Narrative Medical decision making narrative: 74-year-old female with a past medical history of atrial fibrillation on Eliquis, migraine headaches, lumbar radiculopathy, hypothyroidism, frequent UTIs who presents to the emergency department for concern of ?possible UTI? x1 days. Differential diagnosis includes but isn't limited to urinary tract infection, interstitial cystitis, pyelonephritis, ureterolithiasis, dehydration, ROSA, electrolyte abnormality, etc. On exam patient is in no acute distress, nontoxic appearing, vital signs appropriate. She is having continuing dysuria, frequency, urgency after taking a few days of Keflex however she was unable to tolerate the Keflex. She is also having some low back pain, predominantly on the right side. Point of care UA reveals glucose and ketones, no signs of infection. After further discussion with the patient she is on empagliflozin. We will obtain CBC, CMP, magnesium and treat with IV fluids and Zofran. Labs reveal negative urinalysis. Normal WBC count 8.5. Elevated hemoglobin 18.0. Normal sodium 138 potassium 4.6. BUN 17 and creatinine 0.93 with a GFR greater than 60. Glucose 88. Magnesium 1.9. CT abdomen pelvis with IV contrast ordered due to concern of possible pyelonephritis however with current negative UA due to recent antibiotic use. CT reveals no acute abnormality identified. No hydronephrosis. No free fluid. Discussed with the patient that at this time there is no sign of a urinary tract infection, we will hold off on additional antibiotics. No episodes of nausea or vomiting during ED stay. Discussed strict ED return precautions and follow up with PCP. Patient verbalized understanding of all information is agreeable with the plan, she is eagerly requesting discharge home, she is stable for discharge. Discharge Plan Departure Patient Disposition: Home Clinical Impression: Concern about urinary tract disease without diagnosis, Nausea Instructions: DI for Urinary Tract Infection (UTI), DI for Nausea -- Adult Activity Restrictions/Additional Instructions: Dear Ms. Javed, Thank you for coming to the emergency department. Today you were evaluated for a possible urinary tract infection. Your lab work, urine test and CT scan do not reveal an infection at this time. Please rest, increase hydration, use [id number] pain medicine such as Tylenol for pain. Please do not continue taking the Keflex antibiotic. Please follow up with the primary care doctor and if you develop new or worsening urinary symptoms, have a repeat urinalysis test. Please follow up with your primary care doctor within the next 2-3 days for ER follow-up. (If you do not have a PCP you can call [phone]. ?to schedule an appointment with an [facility] Primary Care Provider) IF YOU DEVELOP ANY NEW OR WORSENING SYMPTOMS, RETURN TO THE ER! Please read the attached instructions, they highlight more specific treatments and interventions for you at home. Thank you for letting me participate in your care, Pippa Ortez PA-C Prescriptions: No Action cyclobenzaprine 10 mg tablet 10 mg PO BID PRN (Reason: muscle spasm) Qty: 10 0RF Rx Instructions: Cautioned with operating machinery, may cause sedation. aspirin 81 mg Tablet,Chewable 81 mg PO QAM ondansetron 4 mg tablet,disintegrating 4 mg PO Q6-8H PRN (Reason: nausea and vomiting) Qty: 10 0RF atenolol 25 mg Tablet 25 mg PO DAILY levothyroxine [Synthroid] 150 mcg Tablet 150 mcg PO DAILY omega-3 fatty acids-vitamin E 1,000 mg Capsule 1 cap PO DAILY isosorbide mononitrate 60 mg tablet extended release 24 hr 60 mg PO QAM Qty: 30 0RF benzonatate 200 mg capsule 200 mg PO TID PRN (Reason: cough) Qty: 30 0RF potassium chloride 10 mEq capsule, extended release 20 meq PO DAILY cholecalciferol (vitamin D3) 50 mcg (2,000 unit) capsule 50 mcg PO DAILY Eliquis 5 mg tablet 5 mg PO BID Referrals: Yuli Lang PA-C [Primary Care Provider, Medical] Stand Alone Forms: Patient Portal/API
[2025-04-24] MEDS: SODIUM CHLORIDE 0.9% 1,000 ML 1000 ML IV (13:07)
[2025-04-24] MEDS: ONDANSETRON 4 MG/2 ML INJ IV (13:07)
[2025-04-24 13:23] LABS: Magnesium 1.9 mg/dL (1.6-2.3)
[2025-04-24 13:27] LABS: Add Manual Diff / Slide Review NO; Hematocrit 52.8 % (36-46); Hemoglobin 18.0 g/dL (12.0-16.0); Lymphocytes Absolute Auto 1800 /uL (1100-4500); Mean Corpuscular HGB Conc 34.1 % (30-36); Mean Corpuscular Hemoglobin 31.3 PG (26-34); Mean Corpuscular Volume 91.6 fL (80-100); Platelet Count 193 X10^3/uL (150-400)
[2025-04-24 13:28] LABS: Culture Indicated Urine Cult Not Indicated
[2025-04-24 14:39] LABS: Alanine Aminotransferase 30 IU/L (<35); Albumin 4.0 g/dL (3.5-5.0); Albumin Globulin Ratio 1.5 (1.0-2.8); Alkaline Phosphatase 88 U/L (38-126); Blood Urea Nitrogen 17 mg/dL (7-17); Calcium 8.9 mg/dL (8.4-10.2); Carbon Dioxide 21 mmol/L (22-32); Chloride 107 mmol/L (98-107); Estimated Glomerular Filt Rate > 60 mL/min (>60); Globulin 2.6 g/dL (1.7-4.1); Glucose 88 mg/dL (70-99); HEMOLYSIS 21 (0-50); Potassium 4.6 mmol/L (3.4-5.1); Sodium 138 mmol/L (137-145); Total Protein 6.6 g/dL (6.3-8.2)
--- NOTE | 2025-04-24 14:41 | DI.CT.S_ITS ---
PROCEDURE: CT ABDOMEN PELVIS W CON INDICATIONS: R flank pain; recent UTI TECHNIQUE: After the administration of intravenous contrast, axial sections acquired from the lung bases to the pubic symphysis. Coronal and sagittal reformats were performed. For radiation dose reduction, the following was used: automated exposure control, adjustment of mA and/or kV according to patient size. COMPARISON: [facility], CT, CT ABDOMEN PELVIS W CON, 06/24/2021, 20:32. [facility], CT, CT ABDOMEN PELVIS W CON, 07/07/2024, 14:19. FINDINGS: Image quality: Diagnostic. Lower Chest: No pleural effusion. Probable tiny hiatal hernia. ABDOMEN: Liver: No solid mass. Gallbladder: Absent. Biliary ducts: No biliary dilation. Pancreas: No ductal dilation. No peripancreatic fluid collection. Spleen: Size is within normal limits. Adrenal Glands: No adrenal nodules. Kidneys and Ureters: No hydronephrosis. No striated nephrogram. No perinephric fluid. No hydroureter. No solid mass. Left mid kidney complicated cyst measuring 1.1 cm, (2/43), unchanged. Stomach and Bowel: Normal colonic caliber, without significant wall thickening. The appendix is not seen. Peritoneum: No abnormal intraperitoneal fluid. No free air. Ventral Wall: No significant ventral hernia. Abdominal Nodes: No retroperitoneal or mesenteric adenopathy by size criteria. Vessels: Aorta and inferior vena cava are normal in size. PELVIS: Pelvic Organs: Uterus is absent. Bladder: No bladder wall thickening. No stone. Pelvic Nodes: No enlarged lymph nodes. Miscellaneous: No inguinal hernias are seen. Bones: No aggressive osseous abnormality. IMPRESSION: No acute abnormality identified. No hydronephrosis. No free fluid. Dictated by: Uriel Simmons M.D. on 04/24/2025 at 15:47 Approved by: Uriel Simmons M.D. on 04/24/2025 at 16:00
[2025-04-24 17:00] VITALS: BP 172/85; PULSE 72; RESP 18; O2SAT 99
== END 2025-04-24 16:28 | disposition home or self-care (01) ==
PROVIDERS: Emergency Provider Physician Assistant; PCP Physician Assistant
DX: R30.0 Dysuria (principal); R35.0 Frequency of micturition; R11.0 Nausea; M54.50 Low back pain, unspecified
CPT/HCPCS: 36415; 74177; 80053; 81003; 81015; 83735; 85025; 96361; 96374; 99283; 99284; J2405; Q9967

== ENCOUNTER 2025-06-17 14:20 | Emergency (ER) | payer MEDICARE, OTHER, SELFPAY ==
[2021-06-25 17:33] VITALS: BMI 28.1
[2025-06-17] VITALS (8 sets, daily range): BP systolic 139–176; BP diastolic 70–107; PULSE 58–80; RESP 12–28; TEMP 37; O2SAT 98–100; BMI 27.3
--- NOTE | 2025-06-17 15:29 | EKG_ITS ---
[address] [address] Test Date: 2025-06-17 Pat Name: Jackie Javed Department: [facility] Room: Gender: Female Scrap Baler: : 1950 Requested By: Order Number: [id number] Reading MD: Juan Pablo Hobbs MD Measurements Intervals P[place]ger Rate: 56 P: 56 MS: 192 QRS: -26 QRSD: 68 T: 4 QT: 458 QTc: 441 Interpretive Statements Sinus bradycardia with marked sinus arrhythmia Cannot rule out Anterior infarct , age undetermined Electronically Signed On 06-17-2025 17:32:12 PDT by Juan Pablo Hobbs MD
--- NOTE | 2025-06-17 15:29 | DI.RAD.S_ITS ---
PROCEDURE: XR CHEST 1V INDICATIONS: Chest Pain TECHNIQUE: One view of the chest was acquired. COMPARISON: [facility], CR, XR CHEST 1V, 05/28/2025, 11:40. FINDINGS: Surgical changes and devices: Cholecystectomy clips. Lungs and pleura: Lungs are clear. No pleural effusions or pneumothorax. Mediastinum: Mediastinal contours appear normal. Heart size is normal. Bones and chest wall: No suspicious bony lesions. Overlying soft tissues appear unremarkable. IMPRESSION: No acute cardiopulmonary abnormality is seen. Dictated by: Elizabeth Parker M.D. on 06/17/2025 at 16:51 Approved by: Elizabeth Parker M.D. on 06/17/2025 at 16:51
[2025-06-17 16:55] LABS: Culture Indicated Urine Cult Not Indicated
[2025-06-17 17:09] LABS: INR 1.1 (0.9-1.3); Prothrombin Time 13.0 SECONDS (9.4-12.5)
[2025-06-17 17:12] LABS: PTT Partial Thromboplastin Tim 43 SECONDS (25.1-36.5)
[2025-06-17 17:15] LABS: Alanine Aminotransferase 31 IU/L (<35); Albumin 4.7 g/dL (3.5-5.0); Albumin Globulin Ratio 1.5 (1.0-2.8); Alkaline Phosphatase 99 U/L (38-126); Blood Urea Nitrogen 16 mg/dL (7-17); Calcium 10.2 mg/dL (8.4-10.2); Carbon Dioxide 24 mmol/L (22-32); Chloride 102 mmol/L (98-107); Creatine Kinase 47 U/L (30-135); Estimated Glomerular Filt Rate 53 mL/min (>60); Globulin 3.2 g/dL (1.7-4.1); Glucose 104 mg/dL (70-99); HEMOLYSIS 21 (0-50); Lipase 42 U/L (23-300); Magnesium 2.1 mg/dL (1.6-2.3); Potassium 4.4 mmol/L (3.4-5.1); Sodium 137 mmol/L (137-145); Total Protein 7.9 g/dL (6.3-8.2)
[2025-06-17 17:21] LABS: Add Manual Diff / Slide Review NO; Hematocrit 50.8 % (36-46); Hemoglobin 17.4 g/dL (12.0-16.0); Lymphocytes Absolute Auto 1800 /uL (1100-4500); Mean Corpuscular HGB Conc 34.2 % (30-36); Mean Corpuscular Hemoglobin 31.7 PG (26-34); Mean Corpuscular Volume 92.6 fL (80-100); Platelet Count 259 X10^3/uL (150-400)
[2025-06-17 17:25] LABS: NT-proBNP (BNP-Adult 18+) 281 pg/mL (<450); Troponin I < 0.012 ng/mL (0.01-0.034)
--- NOTE | 2025-06-17 17:52 | PC.NURSE ---
Patient and family very upset, they state they sat in lobby for 3 hours before being brought back to a treatment room. They want to know why we only have 1 doctor in the emergency department.
--- NOTE | 2025-06-17 18:11 | ED.RECABL ---
HPI - Recheck/Abnormal Lab/Rx General Chief Complaint: Recheck/Abnormal Lab/Rx Stated Complaint: right rib pain Time Seen by Provider: 06/17/25 15:38 Source: patient Mode of arrival: Ambulatory History of Present Illness HPI narrative: Patient is a 74-year-old female with a past medical history of hypothyroidism, AFib on Eliquis, comes into the ED from home for evaluation of right-sided rib pain states that this started yesterday, states that she was seen here 2 weeks ago for the same had a negative workup and was sent home. She states that she has had some intermittent nausea secondary to the pain as well, states that she has taken Tylenol without any relief, states that it is worse whenever she palpates the area of denies any trauma or falls. Denies any other symptoms at this time. Related Data Home Medications ?Medication ?Instructions ?Recorded ?Confirmed aspirin 81 mg chewable tablet 81 mg PO QAM 07/26/20 07/08/24 atenolol 25 mg tablet 25 mg PO DAILY 06/25/21 07/08/24 levothyroxine 150 mcg tablet 150 mcg PO DAILY 06/25/21 07/08/24 (Synthroid) omega-3 fatty acids-vitamin E 1 cap PO DAILY 06/25/21 07/08/24 1,000 mg capsule apixaban 5 mg tablet (Eliquis) 5 mg PO BID 07/22/21 07/08/24 cholecalciferol (vitamin D3) 50 50 mcg PO DAILY 07/22/21 07/08/24 mcg (2,000 unit) capsule potassium chloride 10 mEq 20 meq PO DAILY 07/22/21 07/08/24 capsule,extended release Previous Rx's ?Medication ?Instructions ?Recorded ondansetron 4 mg disintegrating 4 mg PO Q6-8H PRN nausea and 06/15/22 tablet vomiting #10 tabs isosorbide mononitrate 60 mg 60 mg PO QAM #30 tabs 01/02/24 tablet,extended release 24 hr benzonatate 200 mg capsule 200 mg PO TID PRN cough #30 caps 06/12/24 cyclobenzaprine 10 mg tablet 10 mg PO BID PRN muscle spasm #10 07/08/24 tabs methocarbamol 500 mg tablet 500 mg PO BEDTIME PRN Pain 1 week 06/17/25 #7 tabs Allergies Allergy/AdvReac Type Severity Reaction Status Date / Time lisinopril Allergy Severe Anaphylaxis Verified 06/17/25 15:16 cephalexin AdvReac Intermediate Weakness Verified 06/17/25 15:16 cyclobenzaprine AdvReac Vomiting Verified 06/17/25 15:16 metformin AdvReac Vomiting Verified 06/17/25 15:16 Review of Systems Review of Systems Narrative: General: Denies fever, chills, weight loss HEENT: Denies headache, eye drainage, eye irritation, head trauma, sore throat, voice change Cardiovascular: Positive chest pain, denies palpitations, tachycardia Respiratory: Denies any shortness of breath, cough, wheeze, stridor GI/: Denies any abdominal pain, nausea, vomiting, diarrhea, bright red blood per rectum, melanotic stools, urinary frequency, urinary retention, dysuria, hematuria MSK: Denies any joint pain, muscle pains, swelling Skin: Denies any rashes, lesions, discoloration Neuro: Denies any headache, lightheadedness, dizziness, fainting, weakness Psych: Denies SI/HI Patient History Medical History UTI (urinary tract infection) Facet arthropathy, lumbar Atrial fibrillation Lumbar radiculopathy Tinnitus Nose fracture (~06/29/21) HLD (hyperlipidemia) Heart murmur Chronic pancreatitis Depression Chronic back pain Breast cancer Migraine headache Hypothyroidism Hypertension Surgical History Hx of tonsillectomy History of colonoscopy Hx of oophorectomy History of hysterectomy Hx of breast surgery Hx of cholecystectomy Family History Father Brain tumor Congestive heart failure Mother Hypertension Stroke Grandfather Stroke Social History household members: spouse alcohol intake: current tobacco type: cigarettes alcohol intake frequency: a few times a month Alcohol type: wine Exam Narrative Exam Narrative: General: Cooperative, well-developed, not in acute distress HEENT: Normocephalic, atraumatic, PERRLA, normal sclera, eyelids normal Neck: Active full range of motion, atraumatic Chest: Reproducible tenderness to palpation of the right lower anterior ribs, no overlying gross deformities. Normal to inspection, negative crepitus, no overlying erythema ecchymosis Respiratory: Normal respiratory effort, not in acute respiratory distress, clear to auscultation bilaterally negative cough, wheeze, tachypnea, rhonchi, rales Cardiology: Regular rate rhythm negative gallop, murmur, rubs GI/: No tenderness to palpation, soft, non rigid, normal to inspection, exam deferred MSK: Full active range of motion in all 4 extremities, atraumatic, no tenderness to palpation of any bony prominences Skin: No rashes or lesions noted Neuro: Alert awake oriented x3, moves all 4 extremities spontaneously, cranial nerves intact, able to answer all questions appropriately follows commands appropriately Psych: Cooperative, negative suicidal or homicidal ideations Initial Vital Signs Initial Vital Signs: Vital Signs Temperature 98.6 F 06/17/25 15:14 Pulse Rate 59 L 06/17/25 15:14 Respiratory Rate 20 06/17/25 15:14 Blood Pressure 154/72 H 06/17/25 15:14 Pulse Oximetry 99 06/17/25 15:14 Oxygen Delivery Method Room Air 06/17/25 15:14 Course Orders Ordered: ED Orders 06/17/25 15:29 XR chest 1V Stat EKG-12 Lead Stat 06/17/25 16:09 Urine Microscopic Stat 06/17/25 16:33 Urine Culture Stat 06/17/25 16:48 Complete Blood Count AUTO DIFF Stat Comprehensive Metabolic Panel Stat Lipase Stat Magnesium Stat NT-proBNP (BNP-Adult 18+) Stat PTT Partial Thromboplastin Cuco Stat Prothrombin Time INR Stat Troponin & CK Cardiac Panel Stat Ondansetron HCl (Ondansetron 4 Mg/2 Ml Inj) 4 mg IV NOW PRN PRN Reason: Nausea And Vomiting Ondansetron HCl (Ondansetron 4 Mg Odt) 4 mg PO NOW PRN PRN Reason: Nausea And Vomiting Discontinued Medications Aspirin (Aspirin 81 Mg Chew Tab) 324 mg PO NOW ONE Stop: 06/17/25 15:30 Last Admin: 06/17/25 17:58 Dose: Not Given Documented By: KAVYA Vital Signs Vital signs: Vital Signs - 8 hr 06/17/25 15:14 06/17/25 17:06 06/17/25 17:07 Temperature 98.6 F Pulse Rate 59 L 58 L 59 L Respiratory Rate 20 Blood Pressure 154/72 H Pulse Oximetry 99 99 99 Oxygen Delivery Method Room Air 06/17/25 17:07 06/17/25 17:27 06/17/25 17:27 Temperature Pulse Rate 80 Respiratory Rate 12 Blood Pressure 175/85 H 176/80 H Pulse Oximetry 99 Oxygen Delivery Method 06/17/25 17:30 06/17/25 17:30 Temperature Pulse Rate 77 Respiratory Rate 12 Blood Pressure 158/76 H Pulse Oximetry 100 Oxygen Delivery Method MDM - Recheck/Abnormal Lab/Rx Lab Data 06/17/25 16:48 06/17/25 16:48 Labs: Lab Results 06/17/25 06/17/25 Range/Units 16:09 16:48 WBC 8.9 (4.5-11.0) X10^3/uL RBC 5.49 H (4.0-5.2) X10^6/uL Hgb 17.4 H (12.0-16.0) g/dL Hct 50.8 H (36-46) % MCV 92.6 (80-100) fL MCH 31.7 (26-34) PG MCHC 34.2 (30-36) % RDW 15.4 H (11.6-14.8) % Plt Count 259 (150-400) X10^3/uL Neut % (Auto) 71.7 (50-75) % Lymph % (Auto) 19.7 L (25-40) % [place] % (Auto) 7.0 (3-14) % Eos % (Auto) 1.0 L (2-4) % Baso % (Auto) 0.6 (0-2) % Neut # (Auto) 6400 (8671-5230) /uL Lymph # (Auto) 1800 (9479-7750) /uL [place] # (Auto) 600 (0-900) /uL Eos # (Auto) 100 (0-450) /uL Baso # (Auto) 0 (0-100) /uL PT 13.0 H (9.4-12.5) SECONDS INR 1.1 (0.9-1.3) APTT 43 H (25.1-36.5) SECONDS Sodium 137 (137-145) mmol/L Potassium 4.4 (3.4-5.1) mmol/L Chloride 102 (98-107) mmol/L Carbon Dioxide 24 (22-32) mmol/L BUN 16 (7-17) mg/dL Creatinine 1.09 H (0.52-1.04) mg/dL Estimated GFR 53 L (>60) mL/min BUN/Creatinine Ratio 14.7 (6-22) Glucose 104 H (70-99) mg/dL Calcium 10.2 (8.4-10.2) mg/dL Magnesium 2.1 (1.6-2.3) mg/dL Total Bilirubin 1.0 (0.2-1.3) mg/dL AST 46 H (14-36) IU/L ALT 31 (<35) IU/L Alkaline Phosphatase 99 (38-126) U/L Total Creatine Kinase 47 (30-135) U/L Troponin I < 0.012 (0.01-0.034) ng/mL NT-Pro-B Natriuret Pep 281 (<450) pg/mL Total Protein 7.9 (6.3-8.2) g/dL Albumin 4.7 (3.5-5.0) g/dL Globulin 3.2 (1.7-4.1) g/dL Albumin/Globulin Ratio 1.5 (1.0-2.8) Lipase 42 (23-300) U/L Urine RBC None seen (0-5/HPF) Urine WBC 0-1/hpf (0-5/HPF) Ur Squamous Epith Cells 0-1 /hpf (0-5/HPF) Urine Bacteria Occasional (0-1) (None) Urine Yeast 0-1/hpf (None) Ur Culture Indicated? Cult not indicated Vol Urine Centrifuged 10ml (spun) Urine Dip Bedside Urine Glucose 1000 mg/dl Bedside Urine Bilirubin - Negative Bedside Urine Ketone - Negative Urine Specific [place] 1.010 Bedside Urine Occult Blood - Negative Bedside Urine pH 8.0 Bedside Urine Protein - Negative Bedside Urine Urobilinogen - Negative Bedside Urine Nitrite - Negative Bedside Urine Leukocytes - Negative Esterase ECG Data Interpretation: EKG interpreted ED physician atrial fibrillation at 56, QTC 441 QRS HI interval within normal limits no STEMI MDM Narrative Medical decision making narrative: Patient is a 74-year-old female with a past medical history of AFib on Eliquis, hyperlipidemia hypertension pancreatitis coming in from home complaining of right-sided anterior rib pain, states that she was seen here previously for the same states that it went away after administration of medication. She states that today she had sudden onset pain to her right rib. States that it is reproducible, denies trauma or falls has been compliant with all her other medications. She denies any actual abdominal pain nausea vomiting headache visual disturbance or any other GI/ symptoms at this time. Patient had lab work imaging EKG performed here, EKG nonischemic in nature. Chest x-ray without any acute cardiopulmonary abnormality, troponin negative BNP negative with the remainder of her lab work is unremarkable. She has reproducible tenderness to palpation of the anterior right rib. I believe her symptoms are more likely MSK in nature. Patient had complete resolution of symptoms after administration of medication. She was instructed to follow up with the primary care and Cardiology in outpatient setting, patient with a heart score of 3. She was given strict return precautions he verbalized understanding of this and agrees to being discharged home with outpatient follow up Discharge Plan Departure Patient Disposition: Home Clinical Impression: Chest pain Instructions: DI for Chest Pain Activity Restrictions/Additional Instructions: Please follow up with your primary care doctor as well as your flat polisher Please read the discharge instructions sheet carefully and bring all papers to all doctor follow-up visits, as it may contain information that your doctor may want to see. Disease processes change and evolve, if your symptoms worsen or if you develop any new symptoms that are concerning to you please return for evaluation. Your evaluation today does not show any evidence of any life-threatening/serious illnesses requiring admission to the hospital or surgery. Please follow-up with your doctor for re-evaluation in approximately 1 day. Seek immediate medical attention for any worrisome symptoms. *If you do not have a primary care provider please contact the [facility] Resource line at [phone]. They will ask some questions about your medical history and help get you set up with a doctor in the community. Prescriptions: New methocarbamol 500 mg tablet 500 mg PO BEDTIME PRN (Reason: Pain) 7 Days Qty: 7 0RF No Action cyclobenzaprine 10 mg tablet 10 mg PO BID PRN (Reason: muscle spasm) Qty: 10 0RF Rx Instructions: Cautioned with operating machinery, may cause sedation. aspirin 81 mg Tablet,Chewable 81 mg PO QAM ondansetron 4 mg tablet,disintegrating 4 mg PO Q6-8H PRN (Reason: nausea and vomiting) Qty: 10 0RF atenolol 25 mg Tablet 25 mg PO DAILY levothyroxine [Synthroid] 150 mcg Tablet 150 mcg PO DAILY omega-3 fatty acids-vitamin E 1,000 mg Capsule 1 cap PO DAILY isosorbide mononitrate 60 mg tablet extended release 24 hr 60 mg PO QAM Qty: 30 0RF benzonatate 200 mg capsule 200 mg PO TID PRN (Reason: cough) Qty: 30 0RF potassium chloride 10 mEq capsule, extended release 20 meq PO DAILY cholecalciferol (vitamin D3) 50 mcg (2,000 unit) capsule 50 mcg PO DAILY Eliquis 5 mg tablet 5 mg PO BID Referrals: Yuli Lang PA-C [Primary Care Provider, Medical] Stand Alone Forms: Patient Portal/API
[2025-06-17] MEDS: LIDOCAINE 5% PATCH 1 EACH TOP (18:33)
[2025-06-17] MEDS: MORPHINE 4 MG/ML INJ IV (18:34)
== END 2025-06-17 19:11 | disposition home or self-care (01) ==
PROVIDERS: Physician Assistant; Emergency Provider Student in an Organized Health Care Education/Training Program; PCP Physician Assistant
DX: R07.9 Chest pain, unspecified (principal); R11.0 Nausea
CPT/HCPCS: 36415; 71045; 80053; 81003; 81015; 82550; 83690; 83735; 83880; 84484; 85025; 85610; 85730; 87086; 87147; 93005; 93010; 96374; 99284; J2272

== ENCOUNTER → 2025-09-21 11:13 | Outpatient (CLI) | payer MEDICARE, OTHER, SELFPAY ==
[2021-06-25 17:33] VITALS: BMI 28.1
--- NOTE | 2025-09-21 11:17 | DI.MG.S_ITS ---
MM screening mammo BI: 09/21/2025. BI-RADS: 2 CLINICAL: 75-year old female for bilateral screening mammogram. No Tyrer-Cuzick risk score calculation due to the patient's personal history of breast cancer. Patient reports a history of left breast carcinoma diagnosed at age 67. Status-post left lumpectomy. No first-degree family history of breast cancer. The patient had a prior left breast biopsy. PRIOR EXAMS 03/08/2024, 03/05/2023, 09/24/2021, 08/05/2020. MAMMOGRAPHY TECHNIQUE: 2D and 3D (tomosynthesis) digital mammographic views obtained, with additional images as needed for full coverage. Current study was also evaluated with a Computer Aided Detection (CAD) system. DENSITY B. There are scattered areas of fibroglandular density. MAMMOGRAPHY FINDINGS Right: No suspicious mass, asymmetry, microcalcification, or other abnormality seen. Left: Benign-appearing post-surgical changes noted on the left. There are no suspicious masses, calcifications, or other findings in the breast. IMPRESSION: Right * No evidence of malignancy. Left * No evidence of malignancy with benign findings. RECOMMENDATIONS Bilateral * Annual screening mammography. OVERALL ASSESSMENT CATEGORY BI-RADS-2: Benign. The [employer] recommends annual screening mammography beginning at age 40 for women with average risk of breast cancer. ELECTRONICALLY SIGNED: Geovany Perez M.D. on 09/23/2025 at 07:34:53 AM PT Interpreting Station ID: [id number]
== END ==
LOC: MAMMO 11:16
PROVIDERS: PCP Physician Assistant; Referring Provider Physician Assistant; Visit Provider Physician Assistant
DX: Z12.31 Encounter for screening mammogram for malignant neoplasm of breast (principal); Z85.3 Personal history of malignant neoplasm of breast
CPT/HCPCS: 77063; 77067